=== PATIENT | female | born 1965 | race Caucasian/White ===

== ENCOUNTER 2020-07-30 13:00 | Emergency (ER) | payer OTHER, SELFPAY ==
[2020-07-30 13:07] VITALS: BP 128/69; PULSE 85; RESP 16; TEMP 36.8; O2SAT 97; BMI 31.4
--- NOTE | 2020-07-30 13:28 | CT_ITS ---
EXAMINATION: CT HEAD W/O IV CONTRAST CT CERVICAL SPINE W/O IV CONTRAST CLINICAL INFORMATION: Fall. Hit head. Questionable loss of consciousness. COMPARISON: None TECHNIQUE: Head - Contiguous axial imaging of the head was performed from the skull base to the vertex without the administration of intravenous contrast, and axial images are reconstructed at 2 mm and 5 mm slice thickness. Cervical spine - A volumetric, helical CT acquisition of the cervical spine was obtained without contrast; in addition to the standard set of axial images, multiplanar reformatted images were provided in the coronal and sagittal imaging planes. This CT examination was performed using dose optimization techniques as appropriate, variously including the following: *Automated exposure control *Adjustment of mA and/or kV according to patient size (this includes techniques or standardized protocols for targeted exams where dose is matched to indication/reason for exam; i.e. extremities or head) *Use of iterative reconstruction technique DLP: 1151 mGy-cm (total) FINDINGS: HEAD: No intracranial hemorrhage, extra-axial fluid collection, focal mass effect or midline shift. The henderson-white matter differentiation is maintained. No acute major vascular territory infarction. The ventricles have normal size and configuration. The brainstem and cerebellum are unremarkable. The cerebellar tonsils are normal position. The calvarium is intact. The paranasal sinuses, mastoid air cells and middle ear cavities are well aerated. The orbits, globes and temporomandibular joints are unremarkable. CERVICAL SPINE: The cervical spine has normal curvature. The craniocervical junction is normal. The occipital condyles, dens and atlantodental articulation are intact. The vertebral body heights and alignment are maintained. No fractures in the anterior or posterior elements. No prevertebral soft tissue swelling. At C5-C6, there is mild disc space narrowing, vertebral traction osteophyte formation and uncovertebral joint hypertrophy. No significant narrowing of the central spinal canal or neural foramina. No spinal hematoma. Thyroid gland is mildly atrophied. The visualized lung apices have mosaic attenuation, suggestive of air trapping phenomenon with atelectasis. CT/CT cervical spine wo con IMPRESSION: * No acute intracranial pathology. * No fracture or malalignment in the cervical spine. * Mild degenerative disc disease of C5-C6.
--- NOTE | 2020-07-30 13:28 | XR_ITS ---
EXAMINATION: X-RAY FEMUR, LEFT X-RAY PELVIS CLINICAL INFORMATION: Left-sided pain and swelling COMPARISON: Radiographs of the right hip 09/10/2017 TECHNIQUE: AP and lateral views of the left femur. Single frontal view of the pelvis. FINDINGS: Left femur: There is normal alignment without acute fracture or dislocation. There is narrowing of the left hip joint with hypertrophic changes of the acetabulum and femoral head. There are vascular calcifications. Pelvis: There is normal alignment without acute fracture or dislocation. There is also narrowing of the right hip joint with associated hypertrophic changes of the acetabulum and femoral head. There are vascular calcifications within the pelvis. Unchanged calcification in the right pelvis, previously described as a dermoid. XR/XR pelvis 1-2V IMPRESSION: Degenerative changes of the bilateral hips. No acute fracture or dislocation.
--- NOTE | 2020-07-30 13:28 | XR_ITS ---
EXAMINATION: X-RAY FEMUR, LEFT X-RAY PELVIS CLINICAL INFORMATION: Left-sided pain and swelling COMPARISON: Radiographs of the right hip 09/10/2017 TECHNIQUE: AP and lateral views of the left femur. Single frontal view of the pelvis. FINDINGS: Left femur: There is normal alignment without acute fracture or dislocation. There is narrowing of the left hip joint with hypertrophic changes of the acetabulum and femoral head. There are vascular calcifications. Pelvis: There is normal alignment without acute fracture or dislocation. There is also narrowing of the right hip joint with associated hypertrophic changes of the acetabulum and femoral head. There are vascular calcifications within the pelvis. Unchanged calcification in the right pelvis, previously described as a dermoid. XR/XR femur LT 2V IMPRESSION: Degenerative changes of the bilateral hips. No acute fracture or dislocation.
[2020-07-30] MEDS: Lidocaine HCl 1 % MPF 5 ML VIAL SUBCUT (13:48)
--- NOTE | 2020-07-30 13:53 | ED.FALL ---
HPI - Fall General Chief Complaint: Fall Stated Complaint: fall Time Seen by Provider: 07/30/20 13:15 Source: EMS Mode of arrival: EMS History of Present Illness HPI Narrative: 54-year-old female with a past medical history of diabetes presenting to ED complaining headache, left thigh pain, and laceration to left ear s/p mechanical fall around 12:00 p.m. today. Reports slipped and fell in bathroom hitting head on toilet, unknown LOC. Denies taking anticoagulation. Has been ambulatory since the incident. Denies symptoms prior to fall. Denies nausea/vomiting, vision changes, neck/back pain, incontinence/retention, abdominal pain Reports does not take vaccinations/never took tetanus, is refusing at present MD complaint: fall Onset (ago): hour(s) Related Data Allergies Allergy/AdvReac Type Severity Reaction Status Date / Time No Known Allergies Allergy Unverified 05/05/20 15:54 [No Known Allergies*] none Allergy Unknown Uncoded 09/28/19 00:00 Review of Systems Review of Systems: Constitutional: No Weight loss, No Fever, No Chills, No Night Sweats, No Fatigue, No Malaise ENT/Mouth: No Hearing loss, +L Ear Pain Eyes: No Eye Pain, No Vision Changes Cardiovascular: No Chest Pain, No SOB, No Edema, No Palpitations Respiratory: No Cough Gastrointestinal: No Nausea, No Vomiting, No Abdominal pain Genitourinary: No Urinary Frequency, No Hematuria Musculoskeletal: +L thigh pain, No Myalgias, No Joint Swelling Skin: +laceration, No rash Neuro: No Weakness, No Numbness, No Paresthesias, Unknown Loss of Consciousness, No Dizziness, + Headache Yes all other systems are reviewed and are negative Neurologic: Denies Sensory deficit (Neuro) [facility], [facility] Past Medical History Attestation statement: The following information was validated with the patient. Medical History (Updated 07/30/20 @ 16:28 by MARIZOL Paez) Diabetes Social History Social History Alcohol intake: never Smoking Status: Never smoker Use of substances other than those prescribed or required for medical reasons: No Advance Directives: No Advance Directives Information Provided: No Physical Exam Vital Signs: Vital Signs: Last Vital Signs Temp 98.3 F 07/30/20 13:07 Pulse 85 07/30/20 13:07 Resp 16 07/30/20 13:07 BP 128/69 07/30/20 13:07 Pulse Ox 97 07/30/20 13:07 Body Mass Index 31.4 Const: General: cooperative and healthy appearing Orientation/consciousness: patient oriented x3 Limitations: no limitations HENMT: Other: Left ear pinna with 1.5 cm laceration and visible cartilage. 1 cm flap laceration noted to posterior left pinna Head: Yes normal to inspection General nose exam: Normal external nose present Face and sinus: Yes normal facial exam Mouth: Normal oral and palatal mucosa present Eyes: General: appearance normal, both eyes and all related structures Pupils: Equal, round and reactive pupils present EOM: EOMs intact bilaterally Neck: Other: C-collar in place. No midline cervical spinous tenderness or appreciable step-offs Neck: Yes normal visual inspection and Yes no meningeal signs Resp: Effort & Inspection: normal respiratory effort Cardio: Rate: regular rate Heart sounds: S1 normal heart sound present Peripheral pulses: dorsalis pedis present GI: Inspection: Yes normal to inspection Palpation (GI): Soft to palpation, nontender, no guarding and not rigid Skin: Rashes: no rashes Wounds: no wounds Neuro: Other: No saddle anesthesia General: patient oriented x3, tone normal, moves all extremities, no meningeal signs, no focal motor deficits and CN's II-XI intact bilaterally Cranial nerves: Yes Equal, round and reactive pupils present Gait exam (Neuro): Normal gait present Motor exam (neuro): 5/5 motor strength present throughout Sensory Exam: No Sensory deficit (Neuro) Coordination: [id number] test normal Extrem: Other: Left proximal lateral thigh with visible lump/inflammation and tenderness to palpation. No crepitus/cellulitis. FROM hip intact General: Yes normal to inspection Course Course Course Narrative: -Head CT and cervical spine CT w/o acute findings -Patient refusing sutures, but agreeable to dermabond -femur/pelvic/hip x-rays with degenerative changes, no acute fracture or dislocation Worrisome signs and symptoms and strict return precautions discussed with patient. She verbalized understanding feel safe for discharge home Procedures Laceration Laceration 1: Site: face (Left ear) Side (If applicable): left Size (cm): 1.5 Description: flap and irregular Depth: simple, single layer (Dermabond) Laceration 2: Site: face (Left ear) Side (If applicable): left Size (cm): 1.0 Description: flap Depth: simple, single layer (Dermabond) MDM - Fall MDM Narrative Medical decision making narrative: 54-year-old female with a past medical history of diabetes presenting to ED complaining headache, left thigh pain, and laceration to left ear s/p mechanical fall around 12:00 p.m. today. On exam VSS, NAD/well-appearing, C-collar in place, no midline spinous tenderness, no focal neuro deficits. Patient refusing tetanus. Rule out ICH/fracture. Plan: Head/C-spine CT, left femur/hip x-ray, repair lack Discharge Plan Discharge Clinical Impression: Laceration, Pain in left thigh Fall Qualifiers: Encounter type: initial encounter Qualified Code(s): W19.XXXA - Unspecified fall, initial encounter Patient Disposition: Home, Self-Care Instructions: Skin Adhesive Care (ED) Additional Instructions: Your imaging studies were unremarkable today in ED Your ear was fixed with skin glue, do not pick at it, avoid excessive water to area, it will follow up on its own Area begins to look red, infected, there is drainage, or you fever return to the ED You should follow-up with her primary care doctor Take Tylenol/Motrin at home for pain/headache. If you develop constant worsening headache, nausea/vomiting, vision changes, or weakness return to the ED Referrals: Physician,Unknown [Primary Care Provider] - 2 days (Your doctor)
== END 2020-07-30 16:50 | disposition home or self-care (01) ==
PROVIDERS: Emergency Provider Emergency Medicine
DX: S01.312A Laceration without foreign body of left ear, initial encounter (principal); W01.198A Fall on same level from slipping, tripping and stumbling with subsequent striking against other object, initial encounter; M79.652 Pain in left thigh; E11.9 Type 2 diabetes mellitus without complications; Y93.9 Activity, unspecified; Y92.012 Bathroom of single-family (private) house as the place of occurrence of the external cause
CPT/HCPCS: 12011; 70450; 72125; 72170; 73552; 99284

== ENCOUNTER 2020-09-07 11:21 | Outpatient (REF) | payer OTHER, SELFPAY ==
[2020-09-07 13:36] LABS: MANUAL DIFF FLAG NO
[2020-09-07 13:47] LABS: Basophils Percent Auto 0.5 % (0-2); Hematocrit 40.5 % (37-47); Hemoglobin 13.8 g/dl (12.0-16.0); Imm Gran Abs Auto 0.01 X10*3/uL (0.00-0.03); Imm Gran Pct Auto 0.2 % (0.0-0.4); Lymphocytes Absolute Auto 1.3 X10*3/uL (1.2-4.9); Lymphocytes Percent Auto 23.5 % (20-40); Mean Corpuscular HGB Conc 34.1 g/dl (31.0-35.0); Mean Corpuscular Hemoglobin 32.6 pg (27.0-33.0); Mean Corpuscular Volume 95.7 fL (80-98); Monocytes Absolute Auto 0.5 X10*3/uL (0.1-1.2); Neutrophils Absolute Auto 3.8 X10*3/uL (2.0-8.3); Neutrophils Percent Auto 67.8 % (45-73); Platelet Count 116 X10*3/uL (160-400); Red Blood Count 4.23 X10*6/uL (4.20-5.50); Red Cell Distribution Width 13.3 % (11.0-16.0); White Blood Count 5.6 X10*3/uL (4.8-10.8)
[2020-09-07 13:56] LABS: Estimated Average Glucose 214 mg/dL; Hemoglobin A1c % 9.1 %
[2020-09-07 14:10] LABS: Alanine Aminotransferase 36 U/L (0-31); Alkaline Phosphatase 171 U/L (39-117); Anion Gap 10 (12-20); Aspartate Amino Transferase 46 U/L (5-31); Bilirubin Direct 0.4 mg/dL (0.0-0.5); Bilirubin Total 0.8 mg/dL (0.0-1.0); Blood Urea Nitrogen 14 mg/dL (9-16); Calcium 8.8 mg/dL (8.4-10.2); Carbon Dioxide 27 mmol/L (22-29); Chloride 103 mmol/L (96-108); Cholesterol 138 mg/dL; Estimated Glomerular Filt Rate 58; Glucose Random 287 mg/dL (60-115); HDL Cholesterol 42 mg/dL; LDL Cholesterol Calculated 71 mg/dl; Potassium 4.2 mmol/l (3.3-5.1); Sodium 136 mmol/L (135-145); Total Protein 6.8 g/dL (6.5-8.0); Triglycerides 125 mg/dL
== END 2020-09-07 11:22 | disposition home or self-care (01) ==
LOC: HO.10HDL 11:21
PROVIDERS: Visit Provider Internal Medicine
DX: E11.9 Type 2 diabetes mellitus without complications (principal)
CPT/HCPCS: 36415; 80048; 80061; 80076; 83036; 85025

== ENCOUNTER 2021-04-05 15:58 | Emergency (ER) | payer OTHER, SELFPAY ==
[2021-04-05 16:07] VITALS: BP 130/85; PULSE 115; O2SAT 98
--- NOTE | 2021-04-05 17:37 | ED.ABDPAIN ---
HPI - Abdominal Pain General Chief Complaint: Nausea/Vomiting/Diarrhea <MARIZOL Paez - Last Filed: 04/05/21 23:35> Stated Complaint: N/V/D,ABD PAIN X3DAYS <MARIZOL Paez - Last Filed: 04/05/21 23:35> Time Seen by Provider: 04/05/21 17:37 <MARIZOL Paez - Last Filed: 04/05/21 23:35> Source: patient <Latrice Lopez MD - Last Filed: 04/06/21 01:31> Mode of arrival: ambulatory <Latrice Lopez MD - Last Filed: 04/06/21 01:31> Limitations: no limitations <Latrice Lopez MD - Last Filed: 04/06/21 01:31> History of Present Illness HPI narrative: Patient comes emergency room complaining of nausea vomiting and diarrhea for 3 days. Complaining of abdominal cramping. Patient denies fever chills. Patient denies UTI or URI symptoms <Latrice Lopez MD - Last Filed: 04/06/21 01:31> Related Data Home Medications: Home Medications Medication Instructions Recorded Confirmed ferrous sulfate 325 mg (65 mg 325 mg PO DAILY 09/05/20 09/19/20 iron) tablet furosemide 20 mg tablet 20 mg PO DAILY 09/05/20 09/19/20 spironolactone 25 mg tablet 25 mg PO DAILY PRN tab 09/05/20 09/19/20 insulin glargine 100 unit/mL (3 100 unit SUBCUT ml 09/13/20 09/13/20 mL) subcutaneous pen Previous Rx's Medication Instructions Recorded dulaglutide 1.5 mg/0.5 mL 1.5 mg SUBCUT QWEEK #2 ml 09/18/20 subcutaneous pen injector (Trulicity) insulin aspart U-100 100 unit/mL 30 unit SUBCUT TID #15 ml 09/18/20 (3 mL) subcutaneous pen (Novolog Flexpen U-100 Insulin aspart) blood sugar diagnostic (FreeStyle 1 strip MISCELLANEOUS TID #300 01/31/21 Lite Strips) strip carvedilol 3.125 mg tablet 3.125 mg PO BID #180 tab 03/09/21 hyoscyamine sulfate 0.125 mg tablet 0.125 mg PO QID PRN #10 tab 04/06/21 ondansetron HCl 4 mg tablet 4 mg PO Q6H PRN #10 tab 04/06/21 (Zofran) <MARIZOL Paez - Last Filed: 04/05/21 23:35> Allergies/Adverse Reactions: Allergies Allergy/AdvReac Type Severity Reaction Status Date / Time No Known Allergies Allergy Verified 09/19/20 09:26 [No Known Allergies*] <MARIZOL Paez - Last Filed: 04/05/21 23:35> Review of Systems Review of Systems Constitutional : No Weight loss, No Fever, No Chills, No Night Sweats, No Fatigue, No Malaise ENT/Mouth : No Hearing loss, No Ear Pain, No Nasal Congestion, No Sinus Pain, No Hoarseness, No sore throat, No Rhinorrhea, No Swallowing Difficulty Eyes: No Eye Pain, No Swelling, No Redness, No Foreign Body, No Discharge, No Vision Changes Cardiovascular : No Chest Pain, No SOB, No Dyspnea on Exertion, No Orthopnea, No Edema, No Palpitations Respiratory : No Cough, No Sputum, No Wheezing, No Smoke Exposure, No Dyspnea Gastrointestinal : No Nausea, No Vomiting, No Diarrhea, No Constipation, No abdominal Pain, No Hematochezia, No Melena Genitourinary : no irregular bleeding, No Dysuria, No Urinary Frequency, No Hematuria, No Urinary Incontinence, No Urgency, No Flank Pain, No Urinary Flow Changes, No Hesitancy Musculoskeletal : No joint pain, No Myalgias, No Joint Swelling Skin : No Skin Lesions, No rash Neuro : No Weakness, No Numbness, No Paresthesias, No Loss of Consciousness, No Dizziness, No Headache Psych : No Anxiety/Panic, No Depression, No SI/HI/AH/VH, No Social Issues, Heme/Lymph: No Bruising, No Bleeding,No Lymphadenopathy Endocrine : No Polyuria, No Polydipsia, No Temperature Intolerance <Latrice Lopez MD - Last Filed: 04/06/21 01:31> Physical Exam Vital Signs: Vital Signs: Last Vital Signs Temp 98.8 F 04/06/21 01:14 Pulse 96 04/06/21 01:14 Resp 16 04/06/21 01:14 BP 105/62 04/06/21 01:14 Pulse Ox 94 04/06/21 01:14 Body Mass Index 31.1 <MARIZOL Paez - Last Filed: 04/05/21 23:35> Vital Signs: Last Vital Signs Temp 98.8 F 04/06/21 01:14 Pulse 96 04/06/21 01:14 Resp 16 04/06/21 01:14 BP 105/62 04/06/21 01:14 Pulse Ox 94 04/06/21 01:14 Body Mass Index 31.1 <Latrice Lopez MD - Last Filed: 04/06/21 01:31> Course Course Course Narrative: This is RME in [facility], full medical eval will be performed by ED provider: 55yo F PMHx DM, presenting to ED c/o N/V/D and upper abdominal pain x3 days. Reports fever 100F 2 days ago. Denies bloody BMs, urinary sx, travel, covid exposure, chills Labs, UA, Lactic ordered in Triage <MARIZOL Paez - Last Filed: 04/05/21 23:35> This is RME in [facility], full medical eval will be performed by ED provider: 55yo F PMHx DM, presenting to ED c/o N/V/D and upper abdominal pain x3 days. Reports fever 100F 2 days ago. Denies bloody BMs, urinary sx, travel, covid exposure, chills Labs, UA, Lactic ordered in Triage Patient states that now she feels well, no abdominal pain, no vomiting or diarrhea. Patient's glucose is now 269.. Patient's lactic acid elevation is chronic, patient also has elevated LFTs secondary to cirrhosis. Patient takes 100 units of Lantus daily, and uses an insulin sliding scale. I discussed with the patient to be compliant with her scale and to follow-up with her primary care physician <Latrice Lopez MD - Last Filed: 04/06/21 01:31> MDM - Abdominal Pain Lab Data Result diagrams: : 04/05/21 20:48 04/05/21 20:48 <MARIZOL Paez - Last Filed: 04/05/21 23:35> Labs: Lab Results 04/05/21 04/05/21 04/05/21 Range/Units 20:48 20:48 20:48 WBC 5.7 (4.8-10.8) X10*3/uL RBC 4.71 (4.20-5.50) X10*6/uL Hgb 15.8 (12.0-16.0) g/dl Hct 45.9 (37-47) % MCV 97.5 (80-98) fL MCH 33.5 H (27.0-33.0) pg MCHC 34.4 (31.0-35.0) g/dl RDW 14.5 (11.0-16.0) % Plt Count 96 L (160-400) X10*3/uL MPV 10.7 (9.4-12.3) fL Immature Gran % (Auto) 0.4 (0.0-0.4) % Neut % (Auto) 67.4 (45-73) % Lymph % (Auto) 19.4 L (20-40) % Barron % (Auto) 12.4 H (2-11) % Eos % (Auto) 0.0 (0-4) % Baso % (Auto) 0.4 (0-2) % Lymph # (Auto) 1.1 L (1.2-4.9) X10*3/uL Barron # (Auto) 0.7 (0.1-1.2) X10*3/uL Eos # (Auto) 0.0 (0.0-0.4) X10*3/uL Baso # (Auto) 0.0 (0.0-0.2) X10*3/uL Abs Immat Gran (auto) 0.02 (0.00-0.03) X10*3/uL Absolute Neuts (auto) 3.9 (2.0-8.3) X10*3/uL Absolute Nucleated RBC 0.000 (0.0-0.012) X10*3/uL Nucleated RBC % (auto) 0.0 (0.0-0.2) /100WBC Smear Tech's Comments VERIFIED Sodium 135 (135-145) mmol/L Potassium 3.6 (3.3-5.1) mmol/L Chloride 101 (96-108) mmol/L Carbon Dioxide 24 (22-29) mmol/L Anion Gap 14 (12-20) BUN 16 (9-16) mg/dL Creatinine 1.10 (0.5-1.4) mg/dL Estim Creat Clear Calc 60.6 Estimated GFR 51 POC Glucose (60-115) mg/dL Random Glucose 473 H* (60-115) mg/dL Lactic Acid 3.6 H* (0.5-2.0) mmol/L Lactic Acid Fup @ 2Hr (0.5-2.0) mmol/L Calcium 7.8 L D (8.4-10.2) mg/dL Magnesium 1.6 (1.6-2.6) mg/dL Total Bilirubin 2.3 H (0.0-1.0) mg/dL Direct Bilirubin 1.1 H (0.0-0.5) mg/dL AST 50 H (5-31) U/L ALT 34 H (0-31) U/L Alkaline Phosphatase 96 D (39-117) U/L Total Protein 6.3 L (6.5-8.0) g/dL Albumin 2.7 L (3.5-5.0) g/dL Lipase 46 (8-78) U/L Acetone, Qual Negative (Negative) 04/06/21 04/06/21 Range/Units 00:10 00:22 WBC (4.8-10.8) X10*3/uL RBC (4.20-5.50) X10*6/uL Hgb (12.0-16.0) g/dl Hct (37-47) % MCV (80-98) fL MCH (27.0-33.0) pg MCHC (31.0-35.0) g/dl RDW (11.0-16.0) % Plt Count (160-400) X10*3/uL MPV (9.4-12.3) fL Immature Gran % (Auto) (0.0-0.4) % Neut % (Auto) (45-73) % Lymph % (Auto) (20-40) % Barron % (Auto) (2-11) % Eos % (Auto) (0-4) % Baso % (Auto) (0-2) % Lymph # (Auto) (1.2-4.9) X10*3/uL Barron # (Auto) (0.1-1.2) X10*3/uL Eos # (Auto) (0.0-0.4) X10*3/uL Baso # (Auto) (0.0-0.2) X10*3/uL Abs Immat Gran (auto) (0.00-0.03) X10*3/uL Absolute Neuts (auto) (2.0-8.3) X10*3/uL Absolute Nucleated RBC (0.0-0.012) X10*3/uL Nucleated RBC % (auto) (0.0-0.2) /100WBC Smear Tech's Comments Sodium (135-145) mmol/L Potassium (3.3-5.1) mmol/L Chloride (96-108) mmol/L Carbon Dioxide (22-29) mmol/L Anion Gap (12-20) BUN (9-16) mg/dL Creatinine (0.5-1.4) mg/dL Estim Creat Clear Calc Estimated GFR POC Glucose 316 H (60-115) mg/dL Random Glucose (60-115) mg/dL Lactic Acid (0.5-2.0) mmol/L Lactic Acid Fup @ 2Hr 2.1 H* (0.5-2.0) mmol/L Calcium (8.4-10.2) mg/dL Magnesium (1.6-2.6) mg/dL Total Bilirubin (0.0-1.0) mg/dL Direct Bilirubin (0.0-0.5) mg/dL AST (5-31) U/L ALT (0-31) U/L Alkaline Phosphatase (39-117) U/L Total Protein (6.5-8.0) g/dL Albumin (3.5-5.0) g/dL Lipase (8-78) U/L Acetone, Qual (Negative) <MARIZOL Paez - Last Filed: 04/05/21 23:35> Lab Results 04/05/21 04/05/21 04/05/21 Range/Units 20:48 20:48 20:48 WBC 5.7 (4.8-10.8) X10*3/uL RBC 4.71 (4.20-5.50) X10*6/uL Hgb 15.8 (12.0-16.0) g/dl Hct 45.9 (37-47) % MCV 97.5 (80-98) fL MCH 33.5 H (27.0-33.0) pg MCHC 34.4 (31.0-35.0) g/dl RDW 14.5 (11.0-16.0) % Plt Count 96 L (160-400) X10*3/uL MPV 10.7 (9.4-12.3) fL Immature Gran % (Auto) 0.4 (0.0-0.4) % Neut % (Auto) 67.4 (45-73) % Lymph % (Auto) 19.4 L (20-40) % Barron % (Auto) 12.4 H (2-11) % Eos % (Auto) 0.0 (0-4) % Baso % (Auto) 0.4 (0-2) % Lymph # (Auto) 1.1 L (1.2-4.9) X10*3/uL Barron # (Auto) 0.7 (0.1-1.2) X10*3/uL Eos # (Auto) 0.0 (0.0-0.4) X10*3/uL Baso # (Auto) 0.0 (0.0-0.2) X10*3/uL Abs Immat Gran (auto) 0.02 (0.00-0.03) X10*3/uL Absolute Neuts (auto) 3.9 (2.0-8.3) X10*3/uL Absolute Nucleated RBC 0.000 (0.0-0.012) X10*3/uL Nucleated RBC % (auto) 0.0 (0.0-0.2) /100WBC Smear Tech's Comments VERIFIED Sodium 135 (135-145) mmol/L Potassium 3.6 (3.3-5.1) mmol/L Chloride 101 (96-108) mmol/L Carbon Dioxide 24 (22-29) mmol/L Anion Gap 14 (12-20) BUN 16 (9-16) mg/dL Creatinine 1.10 (0.5-1.4) mg/dL Estim Creat Clear Calc 60.6 Estimated GFR 51 POC Glucose (60-115) mg/dL Random Glucose 473 H* (60-115) mg/dL Lactic Acid 3.6 H* (0.5-2.0) mmol/L Lactic Acid Fup @ 2Hr (0.5-2.0) mmol/L Calcium 7.8 L D (8.4-10.2) mg/dL Magnesium 1.6 (1.6-2.6) mg/dL Total Bilirubin 2.3 H (0.0-1.0) mg/dL Direct Bilirubin 1.1 H (0.0-0.5) mg/dL AST 50 H (5-31) U/L ALT 34 H (0-31) U/L Alkaline Phosphatase 96 D (39-117) U/L Total Protein 6.3 L (6.5-8.0) g/dL Albumin 2.7 L (3.5-5.0) g/dL Lipase 46 (8-78) U/L Acetone, Qual Negative (Negative) 04/06/21 04/06/21 Range/Units 00:10 00:22 WBC (4.8-10.8) X10*3/uL RBC (4.20-5.50) X10*6/uL Hgb (12.0-16.0) g/dl Hct (37-47) % MCV (80-98) fL MCH (27.0-33.0) pg MCHC (31.0-35.0) g/dl RDW (11.0-16.0) % Plt Count (160-400) X10*3/uL MPV (9.4-12.3) fL Immature Gran % (Auto) (0.0-0.4) % Neut % (Auto) (45-73) % Lymph % (Auto) (20-40) % Barron % (Auto) (2-11) % Eos % (Auto) (0-4) % Baso % (Auto) (0-2) % Lymph # (Auto) (1.2-4.9) X10*3/uL Barron # (Auto) (0.1-1.2) X10*3/uL Eos # (Auto) (0.0-0.4) X10*3/uL Baso # (Auto) (0.0-0.2) X10*3/uL Abs Immat Gran (auto) (0.00-0.03) X10*3/uL Absolute Neuts (auto) (2.0-8.3) X10*3/uL Absolute Nucleated RBC (0.0-0.012) X10*3/uL Nucleated RBC % (auto) (0.0-0.2) /100WBC Smear Tech's Comments Sodium (135-145) mmol/L Potassium (3.3-5.1) mmol/L Chloride (96-108) mmol/L Carbon Dioxide (22-29) mmol/L Anion Gap (12-20) BUN (9-16) mg/dL Creatinine (0.5-1.4) mg/dL Estim Creat Clear Calc Estimated GFR POC Glucose 316 H (60-115) mg/dL Random Glucose (60-115) mg/dL Lactic Acid (0.5-2.0) mmol/L Lactic Acid Fup @ 2Hr 2.1 H* (0.5-2.0) mmol/L Calcium (8.4-10.2) mg/dL Magnesium (1.6-2.6) mg/dL Total Bilirubin (0.0-1.0) mg/dL Direct Bilirubin (0.0-0.5) mg/dL AST (5-31) U/L ALT (0-31) U/L Alkaline Phosphatase (39-117) U/L Total Protein (6.5-8.0) g/dL Albumin (3.5-5.0) g/dL Lipase (8-78) U/L Acetone, Qual (Negative) <Latrice Lopez MD - Last Filed: 04/06/21 01:31> Discharge Plan Discharge Clinical Impression: Abdominal pain, Acute hyperglycemia <MARIZOL Paez - Last Filed: 04/05/21 23:35> Patient Disposition: Home, Self-Care <MARIZOL Paez - Last Filed: 04/05/21 23:35> Instructions: Abdominal Pain (ED), Diabetes and Exercise (ED) <MARIZOL Paez - Last Filed: 04/05/21 23:35> Additional Instructions: Please follow-up with your primary care physician tomorrow. If you have any worsening or new symptoms, please return to the emergency room or call 911 <MARIZOL Paez - Last Filed: 04/05/21 23:35> Prescriptions: New hyoscyamine sulfate 0.125 mg tablet 0.125 mg PO QID PRN (Reason: dyspepsia) Qty: 10 RF: 0 ondansetron HCl [Zofran] 4 mg tablet 4 mg PO Q6H PRN (Reason: nausea and vomiting) Qty: 10 RF: 0 No Action Trulicity 1.5 mg/0.5 mL pen injector 1.5 mg subcut QWEEK Qty: 2 RF: 1 insulin aspart U-100 [Novolog Flexpen U-100 Insulin] 100 unit/mL (3 mL) insulin pen 30 unit subcut TID Qty: 15 RF: 1 blood sugar diagnostic [FreeStyle Lite Strips] Strip 1 strip miscellaneous TID Qty: 300 RF: 12 carvedilol 3.125 mg tablet 3.125 mg PO BID Qty: 180 RF: 1 spironolactone 25 mg tablet 25 mg PO DAILY PRNRF: 0 ferrous sulfate 325 mg (65 mg iron) tablet 325 mg PO DAILY RF: 0 furosemide 20 mg tablet 20 mg PO DAILY RF: 0 insulin glargine 100 unit/mL (3 mL) insulin pen 100 unit subcut RF: 0 <MARIZOL Paez - Last Filed: 04/05/21 23:35> [facility] Past Medical History Medical History: Medical History (Updated 04/06/21 @ 01:29 by Latrice Lopez MD) Diabetes (~01/31/21) <MARIZOL Paez - Last Filed: 04/05/21 23:35> Family History Family History: Family History Mother No problems noted. Father No problems noted. <MARIZOL Paez - Last Filed: 04/05/21 23:35> Social History Social History: Social History Alcohol intake: never Advance Directives: No Advance Directives Information Provided: No Patient : No <MARIZOL Paez - Last Filed: 04/05/21 23:35>
[2021-04-05 17:38] VITALS: BP 119/71; PULSE 105; RESP 20; TEMP 36.2; O2SAT 96; BMI 31.1
[2021-04-05 20:59] LABS: MANUAL DIFF FLAG SCAN; PLT CLUMP 1; Red Cell Distribution Width 14.5 % (11.0-16.0); SCAN SMEAR FLAG 1
[2021-04-05 21:01] LABS: Basophils Percent Auto 0.4 % (0-2); Hematocrit 45.9 % (37-47); Hemoglobin 15.8 g/dl (12.0-16.0); Imm Gran Abs Auto 0.02 X10*3/uL (0.00-0.03); Imm Gran Pct Auto 0.4 % (0.0-0.4); Lymphocytes Absolute Auto 1.1 X10*3/uL (1.2-4.9); Lymphocytes Percent Auto 19.4 % (20-40); Mean Corpuscular HGB Conc 34.4 g/dl (31.0-35.0); Mean Corpuscular Hemoglobin 33.5 pg (27.0-33.0); Mean Corpuscular Volume 97.5 fL (80-98); Mean Platelet Volume 10.7 fL (9.4-12.3); Monocytes Absolute Auto 0.7 X10*3/uL (0.1-1.2); Monocytes Percent Auto 12.4 % (2-11); Neutrophils Absolute Auto 3.9 X10*3/uL (2.0-8.3); Neutrophils Percent Auto 67.4 % (45-73); Red Blood Count 4.71 X10*6/uL (4.20-5.50); White Blood Count 5.7 X10*3/uL (4.8-10.8)
[2021-04-05] MEDS: 0.9 % Sodium Chloride 1,000 ML 999 ML IVCONT ×2 (21:08→22:41)
[2021-04-05 21:09] VITALS: BP 122/80; PULSE 100; RESP 20; O2SAT 97
[2021-04-05] MEDS: PHENobarb/Hyoscy/Atropine/Scop 10 ML ELIXIR PO (21:13)
[2021-04-05 21:18] LABS: Platelet Count 96 X10*3/uL (160-400); SLIDE REVIEW VERIFIED
[2021-04-05] MEDS: ondansetron HCL 4 MG/2 ML VIAL IVPUSH (21:25)
[2021-04-05 21:31] LABS: Lactic Acid 3.6 mmol/L (0.5-2.0)
[2021-04-05 21:48] LABS: Alanine Aminotransferase 34 U/L (0-31); Albumin Level 2.7 g/dL (3.5-5.0); Alkaline Phosphatase 96 U/L (39-117); Anion Gap 14 (12-20); Aspartate Amino Transferase 50 U/L (5-31); Bilirubin Direct 1.1 mg/dL (0.0-0.5); Bilirubin Total 2.3 mg/dL (0.0-1.0); Blood Urea Nitrogen 16 mg/dL (9-16); Calcium 7.8 mg/dL (8.4-10.2); Carbon Dioxide 24 mmol/L (22-29); Chloride 101 mmol/L (96-108); Creatinine Clr Calc Pharmacy 60.6; Estimated Glomerular Filt Rate 51; Glucose Random 473 mg/dL (60-115); Lipase 46 U/L (8-78); Magnesium 1.6 mg/dL (1.6-2.6); Potassium 3.6 mmol/L (3.3-5.1); Sodium 135 mmol/L (135-145); Total Protein 6.3 g/dL (6.5-8.0)
[2021-04-05 22:12] VITALS: BP 113/70; PULSE 97; RESP 18; TEMP 36.9; O2SAT 95
[2021-04-05 22:55] LABS: Reflex Lactate? Lactic Acid Added
[2021-04-05 23:51] LABS: Acetone, serum QL Negative (Negative)
[2021-04-06 00:14] LABS: Glucose, Whole Blood 316 mg/dL (60-115)
[2021-04-06] MEDS: Insulin Regular, Human 100 UNIT/ML 3 ML VIAL 10 UNIT IVPUSH (00:29)
[2021-04-06 00:56] LABS: ~Lactic Acid-LAB USE ONLY 2.1 mmol/L (0.5-2.0)
[2021-04-06 01:14] VITALS: BP 105/62; PULSE 96; RESP 16; TEMP 37.1; O2SAT 94
[2021-04-06 01:27] LABS: Glucose, Whole Blood 269 mg/dL (60-115)
[2021-04-06 02:26] LABS: Reflex Lactate? 2 Y
== END 2021-04-06 01:43 | disposition home or self-care (01) ==
PROVIDERS: Physician Assistant; Emergency Provider Emergency Medicine
DX: R10.9 Unspecified abdominal pain (principal); E11.65 Type 2 diabetes mellitus with hyperglycemia; R50.9 Fever, unspecified; R11.2 Nausea with vomiting, unspecified; Z79.899 Other long term (current) drug therapy; Z79.4 Long term (current) use of insulin
CPT/HCPCS: 36415; 80048; 80076; 82009; 82947; 83605; 83690; 83735; 85025; 96361; 96374; 96375; 99284; J2405

== ENCOUNTER 2021-04-17 17:43 | Emergency (ER) | payer OTHER, SELFPAY ==
[2021-04-17 17:48] VITALS: BP 112/64; PULSE 87; RESP 18; TEMP 36.4; O2SAT 98; BMI 33.3
--- NOTE | 2021-04-17 18:45 | ED.ABDPAIN ---
HPI - Abdominal Pain General Chief Complaint: Abdominal Pain Stated Complaint: Swelling of abdominal/pain Time Seen by Provider: 04/17/21 18:35 Source: patient and family Mode of arrival: ambulatory Limitations: no limitations History of Present Illness HPI narrative: 55-year-old cirrhotic female noncompliant with her paracentesis taps presents emergency department complaining of distention and shortness of breath. Patient denies fevers chills cough nausea vomiting or diarrhea. Related Data Home Medications Medication Instructions Recorded Confirmed ferrous sulfate 325 mg (65 mg 325 mg PO DAILY 09/05/20 09/19/20 iron) tablet furosemide 20 mg tablet 20 mg PO DAILY 09/05/20 09/19/20 spironolactone 25 mg tablet 25 mg PO DAILY PRN tab 09/05/20 09/19/20 insulin glargine 100 unit/mL (3 100 unit SUBCUT ml 09/13/20 09/13/20 mL) subcutaneous pen Previous Rx's Medication Instructions Recorded dulaglutide 1.5 mg/0.5 mL 1.5 mg SUBCUT QWEEK #2 ml 09/18/20 subcutaneous pen injector (Trulicity) insulin aspart U-100 100 unit/mL 30 unit SUBCUT TID #15 ml 09/18/20 (3 mL) subcutaneous pen (Novolog Flexpen U-100 Insulin aspart) blood sugar diagnostic (FreeStyle 1 strip MISCELLANEOUS TID #300 01/31/21 Lite Strips) strip carvedilol 3.125 mg tablet 3.125 mg PO BID #180 tab 03/09/21 hyoscyamine sulfate 0.125 mg tablet 0.125 mg PO QID PRN #10 tab 04/06/21 ondansetron HCl 4 mg tablet 4 mg PO Q6H PRN #10 tab 04/06/21 (Zofran) Allergies Allergy/AdvReac Type Severity Reaction Status Date / Time No Known Allergies Allergy Verified 09/19/20 09:26 [No Known Allergies*] Review of Systems Review of Systems Review of systems: General: Patient denies any fever chills recent illness or falls Musculoskeletal: Denies back pain or body aches or other injuries HEENT: denies headache, runny nose, ear pain Respiratory: denies shortness of breath, cough Cardiovascular: no chest pain or palpitations : denies dysuria, frequency Abdomen: no nausea vomiting patient does have abdominal distension Extremities: no swelling, no pain Skin: no diaphoresis Yes all other systems are reviewed and are negative Physical Exam Vital Signs: Vital Signs: Last Vital Signs Temp 97.6 F 04/17/21 17:48 Pulse 81 04/17/21 18:49 Resp 18 04/17/21 17:48 BP 125/69 04/17/21 18:49 Pulse Ox 95 04/17/21 18:49 Body Mass Index 33.3 General: Well-appearing well-nourished in no signs of distress HEENT: Normocephalic atraumatic Neck: No signs of JVD, no masses no tenderness or lymphadenopathy Cardiovascular: Regular rate and rhythm Respiratory: Clear to auscultation bilaterally Abdomen: Soft nontender distended tympanic abdomen no masses Extremities: Normal pedal pulses no signs of edema Skin: Dry warm no rashes Back: No tenderness full ROM Procedures Paracentesis Time Out Performed: Yes Local Anesthetic: lidocaine 1% Amount of anesthesia used (mL): 10 Fluid: clear Post Procedure Exam: awake, alert Patient Tolerated Procedure: well and no complications Complications: none and possible vessel injury MDM - Abdominal Pain MDM Narrative Medical decision making narrative: I will check labs and make sure this patient does have an infection I will get a diagnostic tap patient does not look to be in acute distress normal vitals of check labs including ammonia level. 2003 pain vanished after getting out about 500 cc of fluid acuity 2500 cc out I did send off the fluid for SBP labs. I also will check an ammonia level her LFT's and lipase. I did have to attempted 4 times and eventually got the fluid out. Patient did experience minimal amount of pain on the 1st 2 times in left side on the right side there is no pain but initially of fluid and I did flow and I sent the catheter took the catheter off and was able to get the fluid with just the needle in place. After 2500 cc out of control even just a needle in there and the needle was withdrawn. Patient tolerated procedure well. No bleeding. 2017 Labs are all normal no SBP I will send home with GI follow up. Lab Data Result diagrams: 04/17/21 19:52 04/17/21 19:52 Labs: Lab Results 04/17/21 04/17/21 04/17/21 Range/Units 19:52 19:52 19:52 WBC 7.6 (4.8-10.8) X10*3/uL RBC 4.13 L (4.20-5.50) X10*6/uL Hgb 13.6 (12.0-16.0) g/dl Hct 40.5 (37-47) % MCV 98.1 H (80-98) fL MCH 32.9 (27.0-33.0) pg MCHC 33.6 (31.0-35.0) g/dl RDW 14.9 (11.0-16.0) % Plt Count 146 L D (160-400) X10*3/uL MPV 10.2 (9.4-12.3) fL Immature Gran % (Auto) 0.5 H (0.0-0.4) % Neut % (Auto) 75.6 H (45-73) % Lymph % (Auto) 14.3 L (20-40) % [place] % (Auto) 9.2 (2-11) % Eos % (Auto) 0.0 (0-4) % Baso % (Auto) 0.4 (0-2) % Lymph # (Auto) 1.1 L (1.2-4.9) X10*3/uL [place] # (Auto) 0.7 (0.1-1.2) X10*3/uL Eos # (Auto) 0.0 (0.0-0.4) X10*3/uL Baso # (Auto) 0.0 (0.0-0.2) X10*3/uL Abs Immat Gran (auto) 0.04 H (0.00-0.03) X10*3/uL Absolute Neuts (auto) 5.7 (2.0-8.3) X10*3/uL Absolute Nucleated RBC 0.000 (0.0-0.012) X10*3/uL Nucleated RBC % (auto) 0.0 (0.0-0.2) /100WBC Sodium (135-145) mmol/L Potassium (3.3-5.1) mmol/L Chloride (96-108) mmol/L Carbon Dioxide (22-29) mmol/L Anion Gap (12-20) BUN (9-16) mg/dL Creatinine (0.5-1.4) mg/dL Estim Creat Clear Calc Estimated GFR Random Glucose (60-115) mg/dL Calcium (8.4-10.2) mg/dL Total Bilirubin (0.0-1.0) mg/dL Direct Bilirubin (0.0-0.5) mg/dL AST (5-31) U/L ALT (0-31) U/L Alkaline Phosphatase 158 H D (39-117) U/L Ammonia (13-55) umol/L Total Protein 6.1 L (6.5-8.0) g/dL Albumin (3.5-5.0) g/dL Triglycerides 87 mg/dL Amylase 26 L (28-100) U/L Lipase (8-78) U/L Peritoneal WBC X10*3/uL Peritoneal RBC X10*6/uL Ethyl Alcohol mg/dL 04/17/21 04/17/21 04/17/21 Range/Units 19:52 19:52 19:52 WBC (4.8-10.8) X10*3/uL RBC (4.20-5.50) X10*6/uL Hgb (12.0-16.0) g/dl Hct (37-47) % MCV (80-98) fL MCH (27.0-33.0) pg MCHC (31.0-35.0) g/dl RDW (11.0-16.0) % Plt Count (160-400) X10*3/uL MPV (9.4-12.3) fL Immature Gran % (Auto) (0.0-0.4) % Neut % (Auto) (45-73) % Lymph % (Auto) (20-40) % [place] % (Auto) (2-11) % Eos % (Auto) (0-4) % Baso % (Auto) (0-2) % Lymph # (Auto) (1.2-4.9) X10*3/uL [place] # (Auto) (0.1-1.2) X10*3/uL Eos # (Auto) (0.0-0.4) X10*3/uL Baso # (Auto) (0.0-0.2) X10*3/uL Abs Immat Gran (auto) (0.00-0.03) X10*3/uL Absolute Neuts (auto) (2.0-8.3) X10*3/uL Absolute Nucleated RBC (0.0-0.012) X10*3/uL Nucleated RBC % (auto) (0.0-0.2) /100WBC Sodium 138 (135-145) mmol/L Potassium 3.4 (3.3-5.1) mmol/L Chloride 104 (96-108) mmol/L Carbon Dioxide 26 (22-29) mmol/L Anion Gap 11 L (12-20) BUN 11 (9-16) mg/dL Creatinine 0.92 (0.5-1.4) mg/dL Estim Creat Clear Calc 75.1 Estimated GFR > 60 Random Glucose 295 H D (60-115) mg/dL Calcium 8.2 L (8.4-10.2) mg/dL Total Bilirubin 1.0 (0.0-1.0) mg/dL Direct Bilirubin 0.6 H (0.0-0.5) mg/dL AST 34 H (5-31) U/L ALT 28 (0-31) U/L Alkaline Phosphatase 158 H (39-117) U/L Ammonia 50 (13-55) umol/L Total Protein 6.1 L (6.5-8.0) g/dL Albumin 2.5 L (3.5-5.0) g/dL Triglycerides mg/dL Amylase (28-100) U/L Lipase 72 (8-78) U/L Peritoneal WBC X10*3/uL Peritoneal RBC X10*6/uL Ethyl Alcohol < 10 mg/dL 04/17/21 Range/Units 19:52 WBC (4.8-10.8) X10*3/uL RBC (4.20-5.50) X10*6/uL Hgb (12.0-16.0) g/dl Hct (37-47) % MCV (80-98) fL MCH (27.0-33.0) pg MCHC (31.0-35.0) g/dl RDW (11.0-16.0) % Plt Count (160-400) X10*3/uL MPV (9.4-12.3) fL Immature Gran % (Auto) (0.0-0.4) % Neut % (Auto) (45-73) % Lymph % (Auto) (20-40) % [place] % (Auto) (2-11) % Eos % (Auto) (0-4) % Baso % (Auto) (0-2) % Lymph # (Auto) (1.2-4.9) X10*3/uL [place] # (Auto) (0.1-1.2) X10*3/uL Eos # (Auto) (0.0-0.4) X10*3/uL Baso # (Auto) (0.0-0.2) X10*3/uL Abs Immat Gran (auto) (0.00-0.03) X10*3/uL Absolute Neuts (auto) (2.0-8.3) X10*3/uL Absolute Nucleated RBC (0.0-0.012) X10*3/uL Nucleated RBC % (auto) (0.0-0.2) /100WBC Sodium (135-145) mmol/L Potassium (3.3-5.1) mmol/L Chloride (96-108) mmol/L Carbon Dioxide (22-29) mmol/L Anion Gap (12-20) BUN (9-16) mg/dL Creatinine (0.5-1.4) mg/dL Estim Creat Clear Calc Estimated GFR Random Glucose (60-115) mg/dL Calcium (8.4-10.2) mg/dL Total Bilirubin (0.0-1.0) mg/dL Direct Bilirubin (0.0-0.5) mg/dL AST (5-31) U/L ALT (0-31) U/L Alkaline Phosphatase (39-117) U/L Ammonia (13-55) umol/L Total Protein (6.5-8.0) g/dL Albumin (3.5-5.0) g/dL Triglycerides mg/dL Amylase (28-100) U/L Lipase (8-78) U/L Peritoneal WBC 0.263 X10*3/uL Peritoneal RBC < 0.002 X10*6/uL Ethyl Alcohol mg/dL Discharge Plan Discharge Clinical Impression: Chronic hepatic failure, Abdominal ascites, Ascites due to alcoholic cirrhosis Instructions: Cirrhosis (ED), Liver Disease Diet (DC), Ascites (ED), Paracentesis (DC) Additional Instructions: Please call the doctor you need to have the same procedure done regularly after doctor's office if you have any other concerns please do not hesitate to come back to the emergency department. Prescriptions: No Action Trulicity 1.5 mg/0.5 mL pen injector 1.5 mg subcut QWEEK Qty: 2 RF: 1 insulin aspart U-100 [Novolog Flexpen U-100 Insulin] 100 unit/mL (3 mL) insulin pen 30 unit subcut TID Qty: 15 RF: 1 blood sugar diagnostic [FreeStyle Lite Strips] Strip 1 strip miscellaneous TID Qty: 300 RF: 12 carvedilol 3.125 mg tablet 3.125 mg PO BID Qty: 180 RF: 1 hyoscyamine sulfate 0.125 mg tablet 0.125 mg PO QID PRN (Reason: dyspepsia) Qty: 10 RF: 0 ondansetron HCl [Zofran] 4 mg tablet 4 mg PO Q6H PRN (Reason: nausea and vomiting) Qty: 10 RF: 0 spironolactone 25 mg tablet 25 mg PO DAILY PRNRF: 0 ferrous sulfate 325 mg (65 mg iron) tablet 325 mg PO DAILY RF: 0 furosemide 20 mg tablet 20 mg PO DAILY RF: 0 insulin glargine 100 unit/mL (3 mL) insulin pen 100 unit subcut RF: 0 PMFSH Past Medical History Medical History (Updated 04/17/21 @ 20:05 by Kiet Go DO) Diabetes (~01/31/21) Family History Family History Mother No problems noted. Father No problems noted. Social History Social History Alcohol intake: never Patient Tobacco Use Status: Never used Tobacco Use of substances other than those prescribed or required for medical reasons: No Advance Directives: No Patient : No
[2021-04-17 18:49] VITALS: BP 125/69; PULSE 81; O2SAT 95
[2021-04-17 19:58] LABS: MANUAL DIFF FLAG NO
[2021-04-17 20:00] LABS: Basophils Percent Auto 0.4 % (0-2); Hematocrit 40.5 % (37-47); Hemoglobin 13.6 g/dl (12.0-16.0); Imm Gran Abs Auto 0.04 X10*3/uL (0.00-0.03); Imm Gran Pct Auto 0.5 % (0.0-0.4); Lymphocytes Absolute Auto 1.1 X10*3/uL (1.2-4.9); Lymphocytes Percent Auto 14.3 % (20-40); Mean Corpuscular HGB Conc 33.6 g/dl (31.0-35.0); Mean Corpuscular Hemoglobin 32.9 pg (27.0-33.0); Mean Corpuscular Volume 98.1 fL (80-98); Mean Platelet Volume 10.2 fL (9.4-12.3); Monocytes Absolute Auto 0.7 X10*3/uL (0.1-1.2); Monocytes Percent Auto 9.2 % (2-11); Neutrophils Absolute Auto 5.7 X10*3/uL (2.0-8.3); Neutrophils Percent Auto 75.6 % (45-73); Platelet Count 146 X10*3/uL (160-400); Red Blood Count 4.13 X10*6/uL (4.20-5.50); Red Cell Distribution Width 14.9 % (11.0-16.0); White Blood Count 7.6 X10*3/uL (4.8-10.8)
[2021-04-17 20:05] LABS: MN% 79.1 %; PMN% 20.9 %; WBC Peritoneal Fluid 0.263 X10*3/uL
[2021-04-17 20:06] LABS: Ammonia 50 umol/L (13-55); RBC Peritoneal Fluid < 0.002 X10*6/uL
[2021-04-17 20:11] LABS: Alkaline Phosphatase 158 U/L (39-117); Ethanol < 10 mg/dL
[2021-04-17 20:12] LABS: Total Protein 6.1 g/dL (6.5-8.0); Triglycerides 87 mg/dL
[2021-04-17 20:13] LABS: Alanine Aminotransferase 28 U/L (0-31); Albumin Level 2.5 g/dL (3.5-5.0); Alkaline Phosphatase 158 U/L (39-117); Anion Gap 11 (12-20); Aspartate Amino Transferase 34 U/L (5-31); Bilirubin Direct 0.6 mg/dL (0.0-0.5); Blood Urea Nitrogen 11 mg/dL (9-16); Calcium 8.2 mg/dL (8.4-10.2); Carbon Dioxide 26 mmol/L (22-29); Chloride 104 mmol/L (96-108); Creatinine Clr Calc Pharmacy 75.1; Estimated Glomerular Filt Rate > 60; Glucose Random 295 mg/dL (60-115); Lipase 72 U/L (8-78); Potassium 3.4 mmol/L (3.3-5.1); Sodium 138 mmol/L (135-145); Total Protein 6.1 g/dL (6.5-8.0)
[2021-04-17 20:16] LABS: Amylase 26 U/L (28-100)
[2021-04-17 20:34] LABS: BF Shift QC OK YES; Lymphocyte Peritoneal Fl 49 %; Monocytes Peritoneal Fl 19 %; Neutrophils Peritoneal Fluid 18 %; Other Peritioneal Fl 14 %
== END 2021-04-17 20:38 | disposition home or self-care (01) ==
PROVIDERS: Emergency Provider Student in an Organized Health Care Education/Training Program; PCP Internal Medicine
DX: K72.90 Hepatic failure, unspecified without coma (principal); K70.31 Alcoholic cirrhosis of liver with ascites; R10.9 Unspecified abdominal pain; R06.02 Shortness of breath; Z79.899 Other long term (current) drug therapy
CPT/HCPCS: 36415; 49082; 80048; 80076; 82077; 82140; 82150; 83690; 84075; 84155; 84478; 85025; 87070; 87073; 87205; 89051; 99284; 99285

== ENCOUNTER 2021-05-18 11:37 | Emergency (ER) | payer OTHER, SELFPAY ==
--- NOTE | ~2021-05-18 | US_ITS ---
EXAMINATION: ULTRASOUND-GUIDED PARACENTESIS. CLINICAL INFORMATION: Ascites. COMPARISON: None TECHNIQUE: Following explaining ultrasound guided paracentesis procedure, benefits and risk, a written consent was obtained. Patient was placed supine on ultrasound stretcher and preliminary ultrasound imaging was obtained. An optimal site was selected, marked and draped in usual sterile manner. 1% lidocaine was injected at the marked site left lower quadrant. 3 small skin incision a 5 [place] Yueh catheter was advanced into the peritoneal space. After obtaining fluid return, stylet was withdrawn and catheter connected to vacuum bottle via a connecting cannula. After obtaining all fluid and observing normal fluid return, catheter was withdrawn and complete hemostasis achieved at puncture site. Sterile dressing applied postprocedure. Patient was monitored during the exam and tolerated procedure extremely well. FINDINGS: On preliminary ultrasound imaging there is a large amount of fluid noted in both flanks. Approximate 6.1 L of clear yellowish fluid was drained from left lower quadrant. Part of this fluid was sent to lab for further analysis as per ER physician orders. US/US paracentesis abd w/image IMPRESSION: Successful ultrasound-guided paracentesis performed.
[2021-05-18 11:50] VITALS: BP 117/93; BP 136/80; PULSE 100; PULSE 102; RESP 22; TEMP 37.2; O2SAT 97; O2SAT 99; BMI 33.3
--- NOTE | 2021-05-18 12:00 | ED.ABDPAIN ---
HPI - Abdominal Pain General Chief Complaint: Abdominal Pain Stated Complaint: Abd Pain Time Seen by Provider: 05/18/21 11:58 Source: patient and EMS Mode of arrival: EMS Limitations: no limitations History of Present Illness HPI narrative: 55 y/o female with history of cirrhosis with large volume ascites, history of DM who presents to the ER with abdominal pain and distention. Her last paracentesis was 04/17 and 2.5L were removed. She reports that was her first time. She thinks she has a liver doctor but cannot recall. She thinks she is on diuretic medication but does not know the names and states they don't work. She has diffuse abdominal pain from the distention. She is short of breath when she lays down. She denies chest pain. She does not know what her cirrhosis is from. Denies alcohol use or hepatitis C. MD elicited complaint: abdominal pain Pertinent past history: other (cirrhosis) Onset (ago): week(s) Pain Consistency: constant Location: diffuse Severity: severe Pain scale (0-10): 9 Quality: aching and fullness Radiation: none Migration to: no migration Exacerbating factors: nothing Relieving factors: nothing Context: history of similar episodes Associated symptoms: denies other symptoms Related Data Home Medications Medication Instructions Recorded Confirmed ferrous sulfate 325 mg (65 mg 325 mg PO DAILY 09/05/20 05/18/21 iron) tablet furosemide 20 mg tablet 20 mg PO DAILY 09/05/20 05/18/21 spironolactone 25 mg tablet 25 mg PO DAILY PRN tab 09/05/20 05/18/21 dulaglutide 1.5 mg/0.5 mL 1.5 mg SUBCUT TU 05/18/21 05/18/21 subcutaneous pen injector (Trulicity) insulin glargine 100 unit/mL (3 100 unit SUBCUT BEDTIME 05/18/21 05/18/21 mL) subcutaneous pen Previous Rx's Medication Instructions Recorded carvedilol 3.125 mg tablet 3.125 mg PO BID #180 tab 03/09/21 insulin aspart U-100 100 unit/mL 30 unit SUBCUT TID #15 cap 04/18/21 (3 mL) subcutaneous pen (Novolog Flexpen U-100 Insulin aspart) furosemide 20 mg tablet (Lasix) 20 mg PO QAM #14 tab 05/18/21 Allergies Allergy/AdvReac Type Severity Reaction Status Date / Time No Known Allergies Allergy Verified 09/19/20 09:26 [No Known Allergies*] Review of Systems Review of Systems Constitutional: No Fever, No Chills ENT/Mouth: No sore throat, No Rhinorrhea, No Swallowing Difficulty Cardiovascular: No Chest Pain, No SOB, No Orthopnea, No Edema Respiratory: No Cough, No Sputum, No Wheezing, No dyspnea Gastrointestinal: No Nausea, No Vomiting, No Diarrhea, + abdominal Pain, No Hematochezia, No Melena Genitourinary: No Dysuria, No Urinary Frequency, No Hematuria Musculoskeletal: No joint pain, No Myalgias Skin: No Skin Lesions, No rash Neuro: No Weakness, No Numbness, No Dizziness, No Headache Psych: No Anxiety/Panic, No Depression Heme/Lymph: No Bruising, No Lymphadenopathy Endocrine: No Polyuria, No Polydipsia Physical Exam Vital Signs: Vital Signs: Last Vital Signs Temp 98.4 F 05/18/21 14:08 Pulse 87 05/18/21 15:54 Resp 16 05/18/21 15:54 BP 125/73 05/18/21 15:54 Pulse Ox 98 05/18/21 15:54 Body Mass Index 33.3 Appearance: Alert. Oriented X3. No acute distress. Eyes: Pupils equal, round and reactive to light. ENT: Pharynx normal. Neck: Normal inspection. Neck supple. CVS: Normal heart rate and rhythm. Pulses normal. Respiratory: No respiratory distress. Breath sounds normal. Abdomen: significant abdominal distention and diffuse tenderness throughout, abd is tense. +BS x4 Skin: Skin warm and dry. Normal skin color. Normal skin turgor. No rashes. Extremities: No lower extremity edema. Neuro: Oriented X 3. No motor deficit. No sensory deficit. Course Course Course Narrative: 55 y/o female with history of liver cirrhosis, most likely due to [place] who presents with abdominal pain and distention. She required her 1st large volume paracentesis one month ago. Will check basic labs and get IR consult for large volume diagnostic and therapeutic paracentesis. Reevaluation(s) Reevaluation #1: Labs show glucose 450, no gap. Will give SQ insulin and reassess. IR consulted for tap. Reevaluation #2: Med rec completed by pharmacy - patient admits to noncompliance with her spironolactone. Reevaluation #3: IR perfromed therapeutic paracentesis with 6.1L removed. She was given albumin. She is stable for discharge home. We discussed importance of diuretic therapy compliance and follow up with GI. MDM - Abdominal Pain Lab Data Result diagrams: 05/18/21 12:27 05/18/21 12:27 Labs: Lab Results 05/18/21 05/18/21 05/18/21 Range/Units 12: 12:27 12:27 WBC 4.8 (4.8-10.8) X10*3/uL RBC 3.97 L (4.20-5.50) X10*6/uL Hgb 13.2 (12.0-16.0) g/dl Hct 39.9 (37-47) % MCV 100.5 H (80-98) fL MCH 33.2 H (27.0-33.0) pg MCHC 33.1 (31.0-35.0) g/dl RDW 15.5 (11.0-16.0) % Plt Count 132 L (160-400) X10*3/uL MPV 9.6 (9.4-12.3) fL Immature Gran % (Auto) 0.2 (0.0-0.4) % Neut % (Auto) 75.8 H (45-73) % Lymph % (Auto) 16.1 L (20-40) % [place] % (Auto) 7.5 (2-11) % Eos % (Auto) 0.0 (0-4) % Baso % (Auto) 0.4 (0-2) % Lymph # (Auto) 0.8 L (1.2-4.9) X10*3/uL [place] # (Auto) 0.4 (0.1-1.2) X10*3/uL Eos # (Auto) 0.0 (0.0-0.4) X10*3/uL Baso # (Auto) 0.0 (0.0-0.2) X10*3/uL Abs Immat Gran (auto) 0.01 (0.00-0.03) X10*3/uL Absolute Neuts (auto) 3.6 (2.0-8.3) X10*3/uL Absolute Nucleated RBC 0.000 (0.0-0.012) X10*3/uL Nucleated RBC % (auto) 0.0 (0.0-0.2) /100WBC PT (9.9-13.0) SEC INR (0.9-1.1) APTT (24.1-38.0) SEC Sodium 135 (135-145) mmol/L Potassium 3.9 (3.3-5.1) mmol/L Chloride 99 (96-108) mmol/L Carbon Dioxide 28 (22-29) mmol/L Anion Gap 12 (12-20) BUN 14 (9-16) mg/dL Creatinine 1.04 (0.5-1.4) mg/dL Estim Creat Clear Calc 66.4 Estimated GFR 55 POC Glucose (60-115) mg/dL Random Glucose 450 H* (60-115) mg/dL Calcium 7.6 L D (8.4-10.2) mg/dL Magnesium 1.8 (1.6-2.6) mg/dL Total Bilirubin 1.7 H (0.0-1.0) mg/dL Direct Bilirubin 0.8 H (0.0-0.5) mg/dL AST 36 H (5-31) U/L ALT 23 (0-31) U/L Alkaline Phosphatase 114 D (39-117) U/L B-Natriuretic Peptide 114 H (<100) pg/mL Total Protein 6.3 L (6.5-8.0) g/dL Albumin 2.3 L (3.5-5.0) g/dL Urine Color Urine Appearance Urine pH (5.0-8.0) Ur Specific [place] (1.005-1.025) Urine Protein (NEG-TRACE) MG/DL Urine Glucose (UA) (NEG) MG/DL Urine Ketones (NEG) MG/DL Urine Blood (NEG) Urine Nitrite (NEG) Ur Leukocyte Esterase (NEG) Urine RBC (0) /HPF Urine WBC (0-4) /HPF Ur Squamous Epith Cells /LPF Urine Bacteria /LPF COVID-19 ([facility]) (Negative) COVID-19 Clin Com 05/18/21 05/18/21 05/18/21 Range/Units 12:27 12:27 13:10 WBC (4.8-10.8) X10*3/uL RBC (4.20-5.50) X10*6/uL Hgb (12.0-16.0) g/dl Hct (37-47) % MCV (80-98) fL MCH (27.0-33.0) pg MCHC (31.0-35.0) g/dl RDW (11.0-16.0) % Plt Count (160-400) X10*3/uL MPV (9.4-12.3) fL Immature Gran % (Auto) (0.0-0.4) % Neut % (Auto) (45-73) % Lymph % (Auto) (20-40) % [place] % (Auto) (2-11) % Eos % (Auto) (0-4) % Baso % (Auto) (0-2) % Lymph # (Auto) (1.2-4.9) X10*3/uL [place] # (Auto) (0.1-1.2) X10*3/uL Eos # (Auto) (0.0-0.4) X10*3/uL Baso # (Auto) (0.0-0.2) X10*3/uL Abs Immat Gran (auto) (0.00-0.03) X10*3/uL Absolute Neuts (auto) (2.0-8.3) X10*3/uL Absolute Nucleated RBC (0.0-0.012) X10*3/uL Nucleated RBC % (auto) (0.0-0.2) /100WBC PT 13.9 H (9.9-13.0) SEC INR 1.2 H (0.9-1.1) APTT 34.6 (24.1-38.0) SEC Sodium (135-145) mmol/L Potassium (3.3-5.1) mmol/L Chloride (96-108) mmol/L Carbon Dioxide (22-29) mmol/L Anion Gap (12-20) BUN (9-16) mg/dL Creatinine (0.5-1.4) mg/dL Estim Creat Clear Calc Estimated GFR POC Glucose 376 H* (60-115) mg/dL Random Glucose (60-115) mg/dL Calcium (8.4-10.2) mg/dL Magnesium (1.6-2.6) mg/dL Total Bilirubin (0.0-1.0) mg/dL Direct Bilirubin (0.0-0.5) mg/dL AST (5-31) U/L ALT (0-31) U/L Alkaline Phosphatase (39-117) U/L B-Natriuretic Peptide (<100) pg/mL Total Protein (6.5-8.0) g/dL Albumin (3.5-5.0) g/dL Urine Color Urine Appearance Urine pH (5.0-8.0) Ur Specific [place] (1.005-1.025) Urine Protein (NEG-TRACE) MG/DL Urine Glucose (UA) (NEG) MG/DL Urine Ketones (NEG) MG/DL Urine Blood (NEG) Urine Nitrite (NEG) Ur Leukocyte Esterase (NEG) Urine RBC (0) /HPF Urine WBC (0-4) /HPF Ur Squamous Epith Cells /LPF Urine Bacteria /LPF COVID-19 ([facility]) Negative (Negative) COVID-19 Clin Com See Note 05/18/21 Range/Units 16:00 WBC (4.8-10.8) X10*3/uL RBC (4.20-5.50) X10*6/uL Hgb (12.0-16.0) g/dl Hct (37-47) % MCV (80-98) fL MCH (27.0-33.0) pg MCHC (31.0-35.0) g/dl RDW (11.0-16.0) % Plt Count (160-400) X10*3/uL MPV (9.4-12.3) fL Immature Gran % (Auto) (0.0-0.4) % Neut % (Auto) (45-73) % Lymph % (Auto) (20-40) % [place] % (Auto) (2-11) % Eos % (Auto) (0-4) % Baso % (Auto) (0-2) % Lymph # (Auto) (1.2-4.9) X10*3/uL [place] # (Auto) (0.1-1.2) X10*3/uL Eos # (Auto) (0.0-0.4) X10*3/uL Baso # (Auto) (0.0-0.2) X10*3/uL Abs Immat Gran (auto) (0.00-0.03) X10*3/uL Absolute Neuts (auto) (2.0-8.3) X10*3/uL Absolute Nucleated RBC (0.0-0.012) X10*3/uL Nucleated RBC % (auto) (0.0-0.2) /100WBC PT (9.9-13.0) SEC INR (0.9-1.1) APTT (24.1-38.0) SEC Sodium (135-145) mmol/L Potassium (3.3-5.1) mmol/L Chloride (96-108) mmol/L Carbon Dioxide (22-29) mmol/L Anion Gap (12-20) BUN (9-16) mg/dL Creatinine (0.5-1.4) mg/dL Estim Creat Clear Calc Estimated GFR POC Glucose (60-115) mg/dL Random Glucose (60-115) mg/dL Calcium (8.4-10.2) mg/dL Magnesium (1.6-2.6) mg/dL Total Bilirubin (0.0-1.0) mg/dL Direct Bilirubin (0.0-0.5) mg/dL AST (5-31) U/L ALT (0-31) U/L Alkaline Phosphatase (39-117) U/L B-Natriuretic Peptide (<100) pg/mL Total Protein (6.5-8.0) g/dL Albumin (3.5-5.0) g/dL Urine Color YELLOW Urine Appearance HAZY Urine pH 6.0 (5.0-8.0) Ur Specific [place] 1.025 (1.005-1.025) Urine Protein NEG (NEG-TRACE) MG/DL Urine Glucose (UA) >=1000 H (NEG) MG/DL Urine Ketones 5 (NEG) MG/DL Urine Blood 1+ H (NEG) Urine Nitrite NEG (NEG) Ur Leukocyte Esterase NEG (NEG) Urine RBC 1-4 (0) /HPF Urine WBC 1-4 (0-4) /HPF Ur Squamous Epith Cells TRACE /LPF Urine Bacteria 3+ /LPF COVID-19 ([facility]) (Negative) COVID-19 Clin Com Critical Care Time Critical Care Time Critical Care Time: No Discharge Plan Discharge Clinical Impression: Abdominal ascites, Hyperglycemia Patient Disposition: Home, Self-Care Instructions: Ascites (ED), Paracentesis (DC) Additional Instructions: Recommend following up with GI for management of your cirrhosis. Recommend resuming your Spironolactone 25 mg - take it every day Take the prescribed lasix as well to help prevent re-accumulation of your ascites. Your glucose today was 300-400 range. Follow up with your doctor as soon as possible for further management. If you develop new or worsening symptoms call 911 or come back to the ER for further evaluation. Prescriptions: New furosemide [Lasix] 20 mg tablet 20 mg PO QAM Qty: 14 RF: 0 No Action carvedilol 3.125 mg tablet 3.125 mg PO BID Qty: 180 RF: 1 insulin aspart U-100 [Novolog Flexpen U-100 Insulin] 100 unit/mL (3 mL) insulin pen 30 unit subcut TID Qty: 15 RF: 1 insulin glargine 100 unit/mL (3 mL) insulin pen 100 unit subcut BEDTIME RF: 0 Trulicity 1.5 mg/0.5 mL pen injector 1.5 mg subcut TU RF: 0 spironolactone 25 mg tablet 25 mg PO DAILY PRN (Reason: Edema) RF: 0 ferrous sulfate 325 mg (65 mg iron) tablet 325 mg PO DAILY RF: 0 furosemide 20 mg tablet 20 mg PO DAILY RF: 0 Referrals: Talon Langley MD [Physician] - 2 days (decompensated liver cirrhosis with refractory ascites. ) [facility] Past Medical History Medical History (Updated 05/18/21 @ 17:29 by MARIZOL Rubio) Cirrhosis Diabetes (~01/31/21) HTN (hypertension) Family History Family History Mother No problems noted. Father No problems noted. Social History Social History Alcohol intake: never Patient Tobacco Use Status: Never used Tobacco Advance Directives: No Advance Directives Information Provided: No
[2021-05-18 12:31] LABS: MANUAL DIFF FLAG NO
[2021-05-18 12:32] LABS: Basophils Percent Auto 0.4 % (0-2); Hematocrit 39.9 % (37-47); Hemoglobin 13.2 g/dl (12.0-16.0); Imm Gran Abs Auto 0.01 X10*3/uL (0.00-0.03); Imm Gran Pct Auto 0.2 % (0.0-0.4); Lymphocytes Absolute Auto 0.8 X10*3/uL (1.2-4.9); Lymphocytes Percent Auto 16.1 % (20-40); Mean Corpuscular HGB Conc 33.1 g/dl (31.0-35.0); Mean Corpuscular Hemoglobin 33.2 pg (27.0-33.0); Mean Corpuscular Volume 100.5 fL (80-98); Mean Platelet Volume 9.6 fL (9.4-12.3); Monocytes Absolute Auto 0.4 X10*3/uL (0.1-1.2); Monocytes Percent Auto 7.5 % (2-11); Neutrophils Absolute Auto 3.6 X10*3/uL (2.0-8.3); Neutrophils Percent Auto 75.8 % (45-73); Platelet Count 132 X10*3/uL (160-400); Red Blood Count 3.97 X10*6/uL (4.20-5.50); Red Cell Distribution Width 15.5 % (11.0-16.0); White Blood Count 4.8 X10*3/uL (4.8-10.8)
[2021-05-18 12:39] LABS: INTERNATIONAL NORM RATIO 1.2 (0.9-1.1); Prothrombin Time 13.9 SEC (9.9-13.0)
[2021-05-18 12:41] LABS: Partial Thromboplastin Time 34.6 SEC (24.1-38.0)
[2021-05-18 12:50] LABS: COVID-19 Test Negative (Negative)
[2021-05-18 12:52] LABS: Alanine Aminotransferase 23 U/L (0-31); Albumin Level 2.3 g/dL (3.5-5.0); Alkaline Phosphatase 114 U/L (39-117); Anion Gap 12 (12-20); Aspartate Amino Transferase 36 U/L (5-31); Bilirubin Direct 0.8 mg/dL (0.0-0.5); Bilirubin Total 1.7 mg/dL (0.0-1.0); Blood Urea Nitrogen 14 mg/dL (9-16); Calcium 7.6 mg/dL (8.4-10.2); Carbon Dioxide 28 mmol/L (22-29); Chloride 99 mmol/L (96-108); Creatinine Clr Calc Pharmacy 66.4; Estimated Glomerular Filt Rate 55; Glucose Random 450 mg/dL (60-115); Magnesium 1.8 mg/dL (1.6-2.6); Potassium 3.9 mmol/L (3.3-5.1); Sodium 135 mmol/L (135-145); Total Protein 6.3 g/dL (6.5-8.0)
[2021-05-18 12:55] LABS: B Type Natriuretic Peptide 114 pg/mL (<100)
[2021-05-18 13:15] VITALS: BP 125/78; PULSE 96; RESP 20; O2SAT 97
[2021-05-18 13:22] LABS: Glucose, Whole Blood 376 mg/dL (60-115)
[2021-05-18] MEDS: Insulin Lispro 100 UNIT/ML 3 ML VIAL 10 UNIT SUBCUT (13:25)
[2021-05-18 14:08] VITALS: BP 116/74; PULSE 96; RESP 14; TEMP 36.9; O2SAT 96
[2021-05-18] MEDS: HYDROcodone Bit/Acetam 5/325 TABLET 1 TAB PO (14:25)
[2021-05-18] MEDS: Albumin Human 25 % 100 ML IV (15:01)
[2021-05-18 15:54] VITALS: BP 125/73; PULSE 87; RESP 16; O2SAT 98
[2021-05-18 16:08] LABS: Appearance Urine HAZY; Color Urine YELLOW; Glucose Urine UA >=1000 MG/DL (NEG); Leukocyte Esterase Urine NEG (NEG); Nitrite Urine NEG (NEG); Specific Gravity - Urine 1.025 (1.005-1.025); UACC Culture Trigger NO; Urine Blood 1+ (NEG); Urine Ketones 5 MG/DL (NEG); Urine Protein NEG (NEG-TRACE)
--- NOTE | 2021-05-18 16:10 | PC.NURSE ---
patient to IR for paracentesis
[2021-05-18 16:25] LABS: Bacteria Urine 3+ /LPF; Squamous Epithelial Cell Urine TRACE /LPF
[2021-05-18] MEDS: Lidocaine HCl 1 % MPF 5 ML VIAL SUBCUT (17:35)
--- NOTE | 2021-05-18 17:50 | PC.NURSE ---
PT BACK FROM IR, 6.1 LITTERS TAKEN OF
[2021-05-18 17:59] LABS: MN% 83.3 %; PMN% 16.7 %; WBC Peritoneal Fluid 0.214 X10*3/uL
[2021-05-18 18:03] LABS: RBC Peritoneal Fluid < 0.002 X10*6/uL
[2021-05-18 18:05] VITALS: BP 117/61; PULSE 85; RESP 16; TEMP 36.4; O2SAT 97
[2021-05-18 18:21] LABS: Eosinophils Peritoneal Fl 2 %; Lymphocyte Peritoneal Fl 52 %; Monocytes Peritoneal Fl 8 %; Neutrophils Peritoneal Fluid 17 %; Other Peritioneal Fl 21 %
[2021-05-18 18:22] LABS: BF Shift QC OK YES
--- NOTE | 2021-05-18 18:24 | PC.NURSE ---
dressing to left lower abdomen from paracentesis CDI. patient reports feeling better at this time. vss
[2021-05-18 18:55] LABS: Glucose, Whole Blood 298 mg/dL (60-115)
== END 2021-05-18 18:52 | disposition home or self-care (01) ==
PROVIDERS: Physician Assistant; Radiology Diagnostic Radiology; Emergency Provider Emergency Medicine Emergency Medical Services; PCP Internal Medicine
DX: R10.9 Unspecified abdominal pain (principal); R18.8 Other ascites; E11.65 Type 2 diabetes mellitus with hyperglycemia; Z20.822 Contact with and (suspected) exposure to COVID-19; Z79.899 Other long term (current) drug therapy; Z79.4 Long term (current) use of insulin
CPT/HCPCS: 36415; 49083; 80048; 80076; 81001; 82947; 83735; 83880; 85025; 85610; 85730; 87635; 89051; 96365; 99284; P9047

== ENCOUNTER 2021-06-09 12:34 | Inpatient (IN) | payer OTHER, SELFPAY ==
--- NOTE | ~2021-06-09 | CT_ITS ---
EXAMINATION: CT ABDOMEN AND PELVIS WITHOUT CONTRAST CLINICAL INFORMATION: Left lower quadrant pain status post paracentesis. Rule out hematoma. COMPARISON: CT of September 14, 2019 and paracentesis of same day. TECHNIQUE: Multidetector volumetric imaging was performed from the superior aspect of the liver through the pubic symphysis. Sagittal and coronal reformatted images were obtained on the technologist's workstation. This CT examination was performed using dose optimization techniques as appropriate, variously including the following: *Automated exposure control *Adjustment of mA and/or kV according to patient size (this includes techniques or standardized protocols for targeted exams where dose is matched to indication/reason for exam; i.e. extremities or head) *Use of iterative reconstruction technique DLP: 1113 mGy-cm FINDINGS: LUNG BASES: There is atelectatic change seen at the lung bases. No pericardial pleural fluid collection. Coronary artery calcification is seen. LIVER, GALLBLADDER, AND BILIARY TREE: There is a small liver with nodular contour consistent with cirrhosis. No focal mass or intrahepatic bile duct dilatation is appreciated. There is recanalization of the umbilical vein. Cholelithiasis is present without evidence of acute cholecystitis. PANCREAS: No pancreatic masses appreciated. No pancreatic ductal dilatation is seen. SPLEEN: Unremarkable. ADRENAL GLANDS: Unremarkable. KIDNEYS AND URETERS: The kidneys are normal in size, shape, and attenuation. No hydronephrosis, hydroureter, or calculi seen. No significant perinephric stranding. BLADDER: Unremarkable. GASTROINTESTINAL TRACT: No dilated loops of large or small bowel are evident. There is moderate to large volume ascites present. No free air is appreciated. There is moderate stool burden present. Appendix not identified. No evidence of acute diverticulitis. ABDOMINAL WALL: There is diffuse anasarca present. Small amount of gas is seen within the left abdominal wall from previous paracentesis site. No underlying hematoma is appreciated. LYMPH NODES: No definite lymphadenopathy appreciated. VASCULAR: No abdominal aortic aneurysm. There is recanalization of the umbilical vein. Multiple portal varices are present and there appears to be a spontaneous left splenorenal shunt. PELVIC VISCERA: About the right pelvis there is a dermoid measuring approximately 4.9 x 4.0 cm in size containing calcification and fat OSSEOUS STRUCTURES: No suspicious destructive bony lesion identified. CT/CT abdomen pelvis wo con IMPRESSION: Hepatic cirrhosis with recanalization of the umbilical vein and numerous portal varices present with what appears to be a spontaneous splenorenal shunt. Cholelithiasis without evidence of acute cholecystitis. Moderate to large volume ascites. No abdominal wall hematoma appreciated. Right pelvic dermoid tumor.
--- NOTE | ~2021-06-09 | US_ITS ---
EXAMINATION: ULTRASOUND-GUIDED PARACENTESIS. CLINICAL INFORMATION: Patient has excruciating pain in the left abdomen. Recently had paracenteses at [facility] on 06/08/2021. COMPARISON: Ultrasound-guided paracentesis 05/18/2021 TECHNIQUE: Limited imaging through the 4 quadrants was performed. In addition Limited imaging to the left midabdomen and lower quadrant was performed where patient has significant pain. FINDINGS: There is a small amount of fluid within the 4 quadrants. However imaging to the left lower quadrant where patient had initial paracentesis performed yesterday patient has thickened abdominal wall, suspicious for hematoma. US/US paracentesis abd w/image IMPRESSION: Small to moderate amount of fluid. Paracentesis was not performed. Patient has pain in left lower quadrant where ultrasound guided paracentesis was performed yesterday. In this region there is a very echogenic and enlarged abdominal wall suspicious for hematoma. Consider CT abdomen without contrast. Results were discussed with Sury Chiu at 4:00 PM
--- NOTE | ~2021-06-09 | US_ITS ---
EXAMINATION: ULTRASOUND-GUIDED PARACENTESIS CLINICAL INFORMATION: Ascites COMPARISON: Previous CT of the abdomen and pelvis and paracentesis 06/09/2021 TECHNIQUE: Procedure and risks and benefits including bleeding, infection and low blood pressure were discussed with the patient and informed consent was obtained. The right lower quadrant was prepped and draped in the usual sterile fashion. The skin and soft tissues were anesthetized with 1% lidocaine plain. Using ultrasound guidance and a 5 [place] rapid centesis catheter, access to the ascitic fluid was obtained. 3.5 L of clear yellow fluid was removed. No diagnostic specimen was sent. FINDINGS: There is a moderate amount of ascites. US/US paracentesis abd w/image IMPRESSION: Ultrasound-guided paracentesis.
--- NOTE | ~2021-06-09 | XR_ITS ---
EXAMINATION: XR CHEST CLINICAL INFORMATION: Shortness of breath COMPARISON: September 15, 2019 TECHNIQUE: AP portable view of the chest was obtained. FINDINGS: There are small lung volumes with large body habitus. There is mild left basilar atelectasis. No acute significant parenchymal disease pneumothorax or pleural effusion is appreciated. Heart normal size. No evidence of pulmonary edema. XR/XR chest 1V IMPRESSION: No significant acute parenchymal disease.
[2021-06-09 12:44] VITALS: BP 105/59; BP 138/77; PULSE 89; PULSE 97; RESP 18; TEMP 36.4; O2SAT 98; BMI 37.4
--- NOTE | 2021-06-09 12:48 | PC.NURSE ---
Patient arrives to ED with abdominal pain. has distended stomach. hx of ascites, and paracentesis. VSS.
--- NOTE | 2021-06-09 12:49 | ED_ITS ---
HPI - Abdominal Pain General Chief Complaint: Abdominal Pain Stated Complaint: abd pain Time Seen by Provider: 06/09/21 12:48 Source: patient and EMS Mode of arrival: EMS Limitations: no limitations History of Present Illness HPI narrative: 55 y/o female with history of ARGUELLO cirrhosis with large volume ascites requiring recurrent large volume paracentesis since March 2021, history of poorly controlled DM on insulin who presents to the ER via EMS with abdominal pain. She was seen at [facility] yesterday and had a paracentesis done. Prior to that 6.1 L were taken off here on 05/18. She does not know how much fluid was removed in the ER yesterday. She was discharged at midnight and reports severe LLQ pain where they did the paracentesis. She did not sleep all night because of the pain and eventually called 911. She denies fever, chills, N/V/D. She reports compliance with her diuretic medication but it has not helped her ascites accumulation. She has had worsening lower extremity swelling and pain, this is limiting her mobility and states she can barely walk. She also reports some mild shortness of breath and this is due to her abdomen pushing up on her chest. MD elicited complaint: abdominal pain Pertinent past history: other (cirrhosis with ascites and recent paracentesis) Onset (ago): unknown Pain Consistency: constant Location: LLQ Severity: severe Pain scale (0-10): 10 Quality: stabbing Radiation: none Migration to: no migration Exacerbating factors: nothing Relieving factors: nothing Context: history of similar episodes Associated symptoms: denies other symptoms Related Data Home Medications Medication Instructions Recorded Confirmed ferrous sulfate 325 mg (65 mg 325 mg PO DAILY 09/05/20 06/09/21 iron) tablet furosemide 20 mg tablet 20 mg PO DAILY 09/05/20 06/09/21 spironolactone 25 mg tablet 25 mg PO DAILY tab 09/05/20 06/09/21 insulin glargine 100 unit/mL (3 100 unit SUBCUT TU 05/18/21 06/09/21 mL) subcutaneous pen cephalexin 500 mg capsule 1 cap PO TID 06/09/21 06/09/21 polyethylene glycol 3350 17 17 g PO DAILY PRN 06/09/21 06/09/21 gram/dose oral powder (Gavilax) sennosides 8.6 mg-docusate sodium 1 tab PO DAILY 06/09/21 06/09/21 50 mg tablet (Senna Plus) Previous Rx's Medication Instructions Recorded carvedilol 3.125 mg tablet 3.125 mg PO BID #180 tab 03/09/21 insulin aspart U-100 100 unit/mL 30 unit SUBCUT TID #15 cap 04/18/21 (3 mL) subcutaneous pen (Novolog Flexpen U-100 Insulin aspart) Allergies Allergy/AdvReac Type Severity Reaction Status Date / Time No Known Allergies Allergy Verified 09/19/20 09:26 [No Known Allergies*] Review of Systems Review of Systems Constitutional: No Fever, No Chills ENT/Mouth: No sore throat, No Rhinorrhea, No Swallowing Difficulty Cardiovascular: No Chest Pain, + SOB, + Orthopnea, + Edema Respiratory: No Cough, No Sputum, No Wheezing, No dyspnea Gastrointestinal: + Nausea, No Vomiting, No Diarrhea, + abdominal Pain, No Hematochezia, No Melena Genitourinary: No Dysuria, No Urinary Frequency, No Hematuria Musculoskeletal: No joint pain, + Myalgias Skin: No Skin Lesions, No rash Neuro: No Weakness, No Numbness, No Dizziness, No Headache Psych: + Anxiety/Panic, + Depression Heme/Lymph: No Bruising, No Lymphadenopathy Endocrine: No Polyuria, No Polydipsia Physical Exam Vital Signs: Vital Signs: Last Vital Signs Temp 98.5 F 06/09/21 18:18 Pulse 89 06/09/21 18:18 Resp 16 06/09/21 18:18 BP 115/60 06/09/21 18:18 Pulse Ox 94 06/09/21 18:18 Body Mass Index 37.4 Appearance: Alert. Oriented X3. Crying and appears to be in pain Eyes: Pupils equal, round and reactive to light. ENT: Pharynx normal. Neck: Normal inspection. Neck supple. CVS: Normal heart rate and rhythm. Pulses normal. Respiratory: No respiratory distress. Breath sounds normal. Abdomen: Obese, distended, soft with diffuse tenderness and guarding, LLQ with puncture site and skin tear from tegaderm dressing, exquisite tenderness to LLQ. Positive fluid wave. normal +BS x4. Pitting edema to the bilateral flanks Skin: Skin warm and dry. Normal skin color. Normal skin turgor. No rashes. Extremities: 3+ lower extremity edema. Neuro: Oriented X 3. No motor deficit. No sensory deficit. Course Course Course Narrative: 55-year-old female with history of cirrhosis most likely ARGUELLO with recurrent ascites requiring multiple paracenteses in the last 2 months, most recent was yesterday at [facility]. She presents with severe left lower quadrant pain at the site of the paracentesis. She has a small skin tear from the Tegaderm with exquisite tenderness on examination. She is tearful and crying. Will attempt to get [facility] records and see if they sent her ascites for Gram stain and culture. Her abdomen is distended and tender, no fever or chills to suggest spontaneous bacterial peritonitis. But given her recent and frequent procedures there is concern for possible peritonitis. Will get basic lab workup, coags, and treat her pain with oxycodone now. Will reassess. Reevaluation(s) Reevaluation #1: [facility] records reviewed-2.6 L of fluid were taken off for comfort. There was 113 wbc's in the ascitic fluid. Her urinalysis was positive for infection with nitrates and leukocyte esterase. She was given a dose of Rocephin and discharged on cefuroxime. Patient continues to be in pain after the oxycodone. She is has significant tenderness to the left lower quadrant. Labs show severe hyperglycemia with a glucose of 532, no anion gap. No evidence of DKA. Subcu insulin has been ordered. Her lactic acid is slightly elevated at 2.5, this is down trended from yesterday's value at [facility] which was in the low 3 range. This is most likely due to her liver failure and not active infection. It has been chronically elevated on multiple visits. Her albumin is also very low 1.8. No role for IV fluids at this time as she will most likely 3rd spacing into her belly. Will give a dose of IV Lasix and IV albumin now. Anticipate she will require admissi on for further management. IV Rocephin ordered for her known UTI, this will also cover possible evolving peritonitis. Reevaluation #2: Dr. Simran john came to the bedside to perform a paracentesis, however did not appear that there was enough fluid to tap. He using ultrasound over the left lower quadrant puncture site and was concerned for possible he matoma. He recommended CT scan of the abdomen for evaluation, this has been ordered. Pain slightly improved with IV fentanyl but persists. Will reassess. Reevaluation #3: CT scan of the abdomen showed moderate to large volume ascites, no abdominal wall hematoma. Patient is diuresing well with the Lasix. Plan for admission for further diuresis and management of pain. May need to have IR re- evaluate for paracentesis tomorrow. Patient agreeable for admission. Dr. Alonzo to admit. MDM - Abdominal Pain Lab Data Result diagrams: 06/09/21 13:17 06/09/21 13:17 Labs: Lab Results 06/09/21 06/09/21 06/09/21 Range/Units 13:05 13:17 13:17 WBC 6.4 (4.8-10.8) X10*3/uL RBC 3.22 L (4.20-5.50) X10*6/uL Hgb 10.7 L (12.0-16.0) g/dl Hct 32.3 L (37-47) % MCV 100.3 H (80-98) fL MCH 33.2 H (27.0-33.0) pg MCHC 33.1 (31.0-35.0) g/dl RDW 15.1 (11.0-16.0) % Plt Count 150 L (160-400) X10*3/uL MPV 9.9 (9.4-12.3) fL Immature Gran % (Auto) 0.2 (0.0-0.4) % Neut % (Auto) 78.5 H (45-73) % Lymph % (Auto) 15.1 L (20-40) % Lamar % (Auto) 5.6 (2-11) % Eos % (Auto) 0.0 (0-4) % Baso % (Auto) 0.6 (0-2) % Lymph # (Auto) 1.0 L (1.2-4.9) X10*3/uL Lamar # (Auto) 0.4 (0.1-1.2) X10*3/uL Eos # (Auto) 0.0 (0.0-0.4) X10*3/uL Baso # (Auto) 0.0 (0.0-0.2) X10*3/uL Abs Immat Gran (auto) 0.01 (0.00-0.03) X10*3/uL Absolute Neuts (auto) 5.0 (2.0-8.3) X10*3/uL Absolute Nucleated RBC 0.000 (0.0-0.012) X10*3/uL Nucleated RBC % (auto) 0.0 (0.0-0.2) /100WBC PT (9.9-13.0) SEC INR (0.9-1.1) APTT (24.1-38.0) SEC Sodium 134 L (135-145) mmol/L Potassium 5.0 D (3.3-5.1) mmol/L Chloride 102 (96-108) mmol/L Carbon Dioxide 26 (22-29) mmol/L Anion Gap 11 L (12-20) BUN 13 (9-16) mg/dL Creatinine 1.04 (0.5-1.4) mg/dL Estim Creat Clear Calc 70.6 Estimated GFR 55 POC Glucose 461 H* (60-115) mg/dL Random Glucose 532 H* (60-115) mg/dL Lactic Acid (0.5-2.0) mmol/L Lactic Acid Fup @ 2Hr (0.5-2.0) mmol/L Lactic Acid Fup @ 4Hr (0.5-2.0) mmol/L Calcium 7.5 L (8.4-10.2) mg/dL Magnesium 1.7 (1.6-2.6) mg/dL Total Bilirubin 1.3 H (0.0-1.0) mg/dL Direct Bilirubin 0.4 (0.0-0.5) mg/dL AST 39 H (5-31) U/L ALT 16 (0-31) U/L Alkaline Phosphatase 100 (39-117) U/L B-Natriuretic Peptide (<100) pg/mL Total Protein 5.8 L (6.5-8.0) g/dL Albumin 1.8 L D (3.5-5.0) g/dL Urine Color Urine Appearance Urine pH (5.0-8.0) Ur Specific [place] (1.005-1.025) Urine Protein (NEG-TRACE) MG/DL Urine Glucose (UA) (NEG) MG/DL Urine Ketones (NEG) MG/DL Urine Blood (NEG) Urine Nitrite (NEG) Ur Leukocyte Esterase (NEG) Urine RBC (0) /HPF Urine WBC (0-4) /HPF Ur Squamous Epith Cells /LPF Urine Bacteria /LPF Urine Yeast /HPF COVID-19 (DAVION) (Negative) COVID-19 Clin Com 06/09/21 06/09/21 06/09/21 Range/Units 13:17 13:17 13:17 WBC (4.8-10.8) X10*3/uL RBC (4.20-5.50) X10*6/uL Hgb (12.0-16.0) g/dl Hct (37-47) % MCV (80-98) fL MCH (27.0-33.0) pg MCHC (31.0-35.0) g/dl RDW (11.0-16.0) % Plt Count (160-400) X10*3/uL MPV (9.4-12.3) fL Immature Gran % (Auto) (0.0-0.4) % Neut % (Auto) (45-73) % Lymph % (Auto) (20-40) % Lamar % (Auto) (2-11) % Eos % (Auto) (0-4) % Baso % (Auto) (0-2) % Lymph # (Auto) (1.2-4.9) X10*3/uL Lamar # (Auto) (0.1-1.2) X10*3/uL Eos # (Auto) (0.0-0.4) X10*3/uL Baso # (Auto) (0.0-0.2) X10*3/uL Abs Immat Gran (auto) (0.00-0.03) X10*3/uL Absolute Neuts (auto) (2.0-8.3) X10*3/uL Absolute Nucleated RBC (0.0-0.012) X10*3/uL Nucleated RBC % (auto) (0.0-0.2) /100WBC PT 15.1 H (9.9-13.0) SEC INR 1.3 H (0.9-1.1) APTT 29.7 (24.1-38.0) SEC Sodium (135-145) mmol/L Potassium (3.3-5.1) mmol/L Chloride (96-108) mmol/L Carbon Dioxide (22-29) mmol/L Anion Gap (12-20) BUN (9-16) mg/dL Creatinine (0.5-1.4) mg/dL Estim Creat Clear Calc Estimated GFR POC Glucose (60-115) mg/dL Random Glucose (60-115) mg/dL Lactic Acid 2.5 H* (0.5-2.0) mmol/L Lactic Acid Fup @ 2Hr (0.5-2.0) mmol/L Lactic Acid Fup @ 4Hr (0.5-2.0) mmol/L Calcium (8.4-10.2) mg/dL Magnesium (1.6-2.6) mg/dL Total Bilirubin (0.0-1.0) mg/dL Direct Bilirubin (0.0-0.5) mg/dL AST (5-31) U/L ALT (0-31) U/L Alkaline Phosphatase (39-117) U/L B-Natriuretic Peptide (<100) pg/mL Total Protein (6.5-8.0) g/dL Albumin (3.5-5.0) g/dL Urine Color Urine Appearance Urine pH (5.0-8.0) Ur Specific [place] (1.005-1.025) Urine Protein (NEG-TRACE) MG/DL Urine Glucose (UA) (NEG) MG/DL Urine Ketones (NEG) MG/DL Urine Blood (NEG) Urine Nitrite (NEG) Ur Leukocyte Esterase (NEG) Urine RBC (0) /HPF Urine WBC (0-4) /HPF Ur Squamous Epith Cells /LPF Urine Bacteria /LPF Urine Yeast /HPF COVID-19 (DAVION) Negative (Negative) COVID-19 Clin Com See Note 06/09/21 06/09/21 06/09/21 Range/Units 13:17 15:13 15:39 WBC (4.8-10.8) X10*3/uL RBC (4.20-5.50) X10*6/uL Hgb (12.0-16.0) g/dl Hct (37-47) % MCV (80-98) fL MCH (27.0-33.0) pg MCHC (31.0-35.0) g/dl RDW (11.0-16.0) % Plt Count (160-400) X10*3/uL MPV (9.4-12.3) fL Immature Gran % (Auto) (0.0-0.4) % Neut % (Auto) (45-73) % Lymph % (Auto) (20-40) % Lamar % (Auto) (2-11) % Eos % (Auto) (0-4) % Baso % (Auto) (0-2) % Lymph # (Auto) (1.2-4.9) X10*3/uL Lamar # (Auto) (0.1-1.2) X10*3/uL Eos # (Auto) (0.0-0.4) X10*3/uL Baso # (Auto) (0.0-0.2) X10*3/uL Abs Immat Gran (auto) (0.00-0.03) X10*3/uL Absolute Neuts (auto) (2.0-8.3) X10*3/uL Absolute Nucleated RBC (0.0-0.012) X10*3/uL Nucleated RBC % (auto) (0.0-0.2) /100WBC PT (9.9-13.0) SEC INR (0.9-1.1) APTT (24.1-38.0) SEC Sodium (135-145) mmol/L Potassium (3.3-5.1) mmol/L Chloride (96-108) mmol/L Carbon Dioxide (22-29) mmol/L Anion Gap (12-20) BUN (9-16) mg/dL Creatinine (0.5-1.4) mg/dL Estim Creat Clear Calc Estimated GFR POC Glucose (60-115) mg/dL Random Glucose (60-115) mg/dL Lactic Acid (0.5-2.0) mmol/L Lactic Acid Fup @ 2Hr 2.8 H* (0.5-2.0) mmol/L Lactic Acid Fup @ 4Hr (0.5-2.0) mmol/L Calcium (8.4-10.2) mg/dL Magnesium (1.6-2.6) mg/dL Total Bilirubin (0.0-1.0) mg/dL Direct Bilirubin (0.0-0.5) mg/dL AST (5-31) U/L ALT (0-31) U/L Alkaline Phosphatase (39-117) U/L B-Natriuretic Peptide 136 H (<100) pg/mL Total Protein (6.5-8.0) g/dL Albumin (3.5-5.0) g/dL Urine Color YELLOW Urine Appearance HAZY Urine pH 6.0 (5.0-8.0) Ur Specific [place] 1.010 (1.005-1.025) Urine Protein NEG (NEG-TRACE) MG/DL Urine Glucose (UA) >=1000 H (NEG) MG/DL Urine Ketones NEG (NEG) MG/DL Urine Blood TRACE (NEG) Urine Nitrite POS H (NEG) Ur Leukocyte Esterase 1+ H (NEG) Urine RBC 1-4 (0) /HPF Urine WBC 1-4 (0-4) /HPF Ur Squamous Epith Cells TRACE /LPF Urine Bacteria 3+ /LPF Urine Yeast 1+ /HPF COVID-19 ([facility]VION) (Negative) COVID-19 Clin Com 06/09/21 06/09/21 Range/Units 18:07 19:39 WBC (4.8-10.8) X10*3/uL RBC (4.20-5.50) X10*6/uL Hgb (12.0-16.0) g/dl Hct (37-47) % MCV (80-98) fL MCH (27.0-33.0) pg MCHC (31.0-35.0) g/dl RDW (11.0-16.0) % Plt Count (160-400) X10*3/uL MPV (9.4-12.3) fL Immature Gran % (Auto) (0.0-0.4) % Neut % (Auto) (45-73) % Lymph % (Auto) (20-40) % Lamar % (Auto) (2-11) % Eos % (Auto) (0-4) % Baso % (Auto) (0-2) % Lymph # (Auto) (1.2-4.9) X10*3/uL [place]ar # (Auto) (0.1-1.2) X10*3/uL Eos # (Auto) (0.0-0.4) X10*3/uL Baso # (Auto) (0.0-0.2) X10*3/uL Abs Immat Gran (auto) (0.00-0.03) X10*3/uL Absolute Neuts (auto) (2.0-8.3) X10*3/uL Absolute Nucleated RBC (0.0-0.012) X10*3/uL Nucleated RBC % (auto) (0.0-0.2) /100WBC PT (9.9-13.0) SEC INR (0.9-1.1) APTT (24.1-38.0) SEC Sodium (135-145) mmol/L Potassium (3.3-5.1) mmol/L Chloride (96-108) mmol/L Carbon Dioxide (22-29) mmol/L Anion Gap (12-20) BUN (9-16) mg/dL Creatinine (0.5-1.4) mg/dL Estim Creat Clear Calc Estimated GFR POC Glucose 367 H* (60-115) mg/dL Random Glucose (60-115) mg/dL Lactic Acid (0.5-2.0) mmol/L Lactic Acid Fup @ 2Hr (0.5-2.0) mmol/L Lactic Acid Fup @ 4Hr 2.6 H* (0.5-2.0) mmol/L Calcium (8.4-10.2) mg/dL Magnesium (1.6-2.6) mg/dL Total Bilirubin (0.0-1.0) mg/dL Direct Bilirubin (0.0-0.5) mg/dL AST (5-31) U/L ALT (0-31) U/L Alkaline Phosphatase (39-117) U/L B-Natriuretic Peptide (<100) pg/mL Total Protein (6.5-8.0) g/dL Albumin (3.5-5.0) g/dL Urine Color Urine Appearance Urine pH (5.0-8.0) Ur Specific [place] (1.005-1.025) Urine Protein (NEG-TRACE) MG/DL Urine Glucose (UA) (NEG) MG/DL Urine Ketones (NEG) MG/DL Urine Blood (NEG) Urine Nitrite (NEG) Ur Leukocyte Esterase (NEG) Urine RBC (0) /HPF Urine WBC (0-4) /HPF Ur Squamous Epith Cells /LPF Urine Bacteria /LPF Urine Yeast /HPF COVID-19 ([facility]ION) (Negative) COVID-19 Clin Com Critical Care Time Critical Care Time Critical Care Time: Yes Total Critical Care Time: 38 Attestation: I have personally provided critical care time exclusive of time spent on separately billable procedures. Time includes review of lab data, radiology results, discussion with consultants, and monitoring for potential decompensation. Intervention performed as documented. Discharge Plan Discharge Clinical Impression: Hyperglycemia Abdominal pain Qualifiers: Abdominal location: unspecified location Qualified Code(s): R10.9 - Unspecified abdominal pain Ascites Qualifiers: Ascites type: other type Qualified Code(s): R18.8 - Other ascites Fluid overload Qualifiers: Hypervolemia type: other Qualified Code(s): E87.79 - Other fluid overload UTI (urinary tract infection) Qualifiers: Urinary tract infection type: acute cystitis Hematuria presence: without hemat uria Qualified Code(s): N30.00 - Acute cystitis without hematuria Patient Disposition: Admitted As Inpatient [facility] Past Medical History Attestation statement: The following information was validated with the patient. Medical History Cirrhosis Diabetes (~01/31/21) HTN (hypertension) Family History Family History Mother No problems noted. Father No problems noted. Social History Social History Alcohol intake: never Patient Tobacco Use Status: Never used Tobacco Advance Directives: No Advance Directives Information Provided: Yes
[2021-06-09 13:22] LABS: Glucose, Whole Blood 461 mg/dL (60-115)
[2021-06-09 13:25] LABS: MANUAL DIFF FLAG NO
[2021-06-09] MEDS: oxyCODONE HCl Immed Release 5 MG TABLET PO ×2 (13:25→22:23)
[2021-06-09] MEDS: Lidocaine 4 % Cream KIT 1 APPL TOPICAL (13:25)
[2021-06-09 13:29] LABS: Basophils Percent Auto 0.6 % (0-2); Hematocrit 32.3 % (37-47); Hemoglobin 10.7 g/dl (12.0-16.0); Imm Gran Abs Auto 0.01 X10*3/uL (0.00-0.03); Imm Gran Pct Auto 0.2 % (0.0-0.4); Lymphocytes Percent Auto 15.1 % (20-40); Mean Corpuscular HGB Conc 33.1 g/dl (31.0-35.0); Mean Corpuscular Hemoglobin 33.2 pg (27.0-33.0); Mean Corpuscular Volume 100.3 fL (80-98); Mean Platelet Volume 9.9 fL (9.4-12.3); Monocytes Absolute Auto 0.4 X10*3/uL (0.1-1.2); Monocytes Percent Auto 5.6 % (2-11); Neutrophils Percent Auto 78.5 % (45-73); Platelet Count 150 X10*3/uL (160-400); Red Blood Count 3.22 X10*6/uL (4.20-5.50); Red Cell Distribution Width 15.1 % (11.0-16.0); White Blood Count 6.4 X10*3/uL (4.8-10.8)
[2021-06-09 13:33] LABS: INTERNATIONAL NORM RATIO 1.3 (0.9-1.1); Prothrombin Time 15.1 SEC (9.9-13.0)
[2021-06-09 13:35] LABS: Partial Thromboplastin Time 29.7 SEC (24.1-38.0)
--- NOTE | 2021-06-09 13:35 | PHA.MEDREC ---
Pharmacy Consult ? Medication Reconciliation Pharmacy has completed the medication reconciliation. Patient reports using insulin. She uses Novolog 30 units TID and Lantus 100 units on Tuesdays (splits into two dose 80 units and 20units). She is no long on Trulicity and mentioned that she was on metformin a long time ago. She is unsure how much cephalexin she has left because she has a nurse come to her home to fill pill stacy. Reports that she uses furosemide and spironolactone daily but still has edema so bad that she cannot walk. She reports that she sometimes takes the ferrous sulfate but often cause too much constipation. Liliam Mitchell, PharmD
[2021-06-09 13:39] LABS: Lactic Acid 2.5 mmol/L (0.5-2.0)
[2021-06-09 13:46] LABS: COVID-19 Test Negative (Negative); IDNOW Serial# 9DD0AD1C
[2021-06-09] MEDS: Insulin Lispro 100 UNIT/ML 3 ML VIAL 15 UNIT SUBCUT (13:57)
[2021-06-09 14:10] LABS: Alanine Aminotransferase 16 U/L (0-31); Albumin Level 1.8 g/dL (3.5-5.0); Alkaline Phosphatase 100 U/L (39-117); Anion Gap 11 (12-20); Aspartate Amino Transferase 39 U/L (5-31); Bilirubin Direct 0.4 mg/dL (0.0-0.5); Bilirubin Total 1.3 mg/dL (0.0-1.0); Blood Urea Nitrogen 13 mg/dL (9-16); Calcium 7.5 mg/dL (8.4-10.2); Carbon Dioxide 26 mmol/L (22-29); Chloride 102 mmol/L (96-108); Creatinine Clr Calc Pharmacy 70.6; Estimated Glomerular Filt Rate 55; Glucose Random 532 mg/dL (60-115); Magnesium 1.7 mg/dL (1.6-2.6); Sodium 134 mmol/L (135-145); Total Protein 5.8 g/dL (6.5-8.0)
[2021-06-09] MEDS: cefTRIAXone sodium 1 GM in 0.9 % Sodium Chloride 50 ML IV (14:31)
[2021-06-09] MEDS: Furosemide 40 MG/4 ML VIAL IVPUSH (14:31)
[2021-06-09 14:52] LABS: B Type Natriuretic Peptide 136 pg/mL (<100)
[2021-06-09] MEDS: Albumin Human 25 % 100 ML IV ×2 (15:14→16:57)
[2021-06-09 15:24] LABS: Reflex Lactate? Lactic Acid Added
[2021-06-09 15:36] LABS: Appearance Urine HAZY; Color Urine YELLOW; Glucose Urine UA >=1000 MG/DL (NEG); Leukocyte Esterase Urine 1+ (NEG); Nitrite Urine POS (NEG); UACC Culture Trigger YES; Urine Blood TRACE (NEG); Urine Ketones NEG (NEG); Urine Protein NEG (NEG-TRACE)
[2021-06-09] MEDS: fentaNYL citrate/PF 100 MCG/2 ML VIAL 50 MCG IVPUSH (15:51)
[2021-06-09 15:52] LABS: Bacteria Urine 3+ /LPF; Squamous Epithelial Cell Urine TRACE /LPF
[2021-06-09 16:04] LABS: ~Lactic Acid-LAB USE ONLY 2.8 mmol/L (0.5-2.0)
[2021-06-09 17:45] LABS: Reflex Lactate? 2 Y
[2021-06-09 18:18] VITALS: BP 115/60; PULSE 89; RESP 16; TEMP 36.9; O2SAT 94
[2021-06-09 18:30] LABS: ~Lactic Acid-LAB USE ONLY 2.6 mmol/L (0.5-2.0)
[2021-06-09 19:45] LABS: Glucose, Whole Blood 367 mg/dL (60-115)
--- NOTE | 2021-06-09 20:03 | P.HPHOSP_ITS ---
History of Present Illness Date of Service: 06/09/21 Chief Complaint: abd pain, distension and leg swellings This is a 55-year-old female past medical history of liver cirrhosis, diabetes, hypertension, who has been receiving paracentesis for recent ascites at [facility] presents the hospital with complaints of severe abdominal pain, as well as lower extremity pain to the point where she is unable to walk. Patient reports that post her most recent paracentesis she developed significant pain at the site of the needle entry. Patient denies having any chest pain, no increased shortness of breath, no orthopnea or PND. She reports that her abdomen has been swelling for the past 1 month and has been receiving paracentesis but has not really reduce the swelling and it has been getting worse. She denies having any fever no chills, no nausea, no vomiting, no diarrhea constipation, she reports urinary frequency with no dysuria or urgency, no numbness tingling or weakness other than the pain in her legs. On arrival to the ED patient hemodynamically stable with no significant abnormal vitals, Labs are significant for WBC count of 6.4, glucose of 500, lactic acid of 2.5, BNP of 136, albumin of 1.8, UA that is positive for nitrites as well as leukocyte Estrace and trace WBC. Abdominal ultrasound shows hepatic cirrhosis with recanalization of the umbilical vein and numerous portal varices present with what appears to be a spontaneous splenorenal shunt, moderate to large volume ascites, no abdominal wall hematoma Interventional Radiology attempted paracentesis but there was small to moderate amount of fluid and therefore paracentesis was not done. Patient will be admitted for further management Review of Systems Review of Systems: Yes all other systems are reviewed and are negative [facility] Medical History Cirrhosis Diabetes (~01/31/21) HTN (hypertension) Family History Mother No problems noted. Father No problems noted. Pertinent family history: No pertinent history Social History Household Members: Children Housing: House Do you presently have visiting nurse or other home services: No Alcohol intake: never Patient Tobacco Use Status: Never used Tobacco Use of substances other than those prescribed or required for medical reasons: No Have you been hit, kicked, punched, or otherwise hurt by someone within the past year? If so, by whom?: No Do you feel safe in your current relationship?: No Current Relationship Is there a partner from a previous relationship who is making you feel unsafe now?: No Advance Directives: No Advance Directives Information Provided: Yes Do you have thoughts of harming others: None Do you have a plan to hurt others: No Plan Recently lost weight without trying: No Nutrition Risks: Anorexia Patient : No : No Poor oral hygiene: No service: No Current occupational status: [employer] Allergies Allergy/AdvReac Type Severity Reaction Status Date / Time No Known Allergies Allergy Verified 09/19/20 09:26 [No Known Allergies*] Active Medications: Current Medications Pharmacy Consult (Consult Rx Perform Med Rec) 1 each MISCELLANE ONCE PRN PRN Reason: Consult order Home Medications Medication Instructions Recorded Confirmed Last Taken Type ferrous sulfate 325 mg (65 mg 325 mg PO DAILY 09/05/20 06/09/21 06/08/21 History iron) tablet furosemide 20 mg tablet 20 mg PO DAILY 09/05/20 06/09/21 06/08/21 History spironolactone 25 mg tablet 25 mg PO DAILY tab 09/05/20 06/09/21 06/08/21 History insulin glargine 100 unit/mL (3 100 unit SUBCUT TU 05/18/21 06/09/21 06/08/21 History mL) subcutaneous pen cephalexin 500 mg capsule 1 cap PO TID 06/09/21 06/09/21 06/08/21 History polyethylene glycol 3350 17 17 g PO DAILY PRN 06/09/21 06/09/21 06/08/21 History gram/dose oral powder (Gavilax) sennosides 8.6 mg-docusate sodium 1 tab PO DAILY 06/09/21 06/09/21 06/08/21 History 50 mg tablet (Senna Plus) Physical Exam Vital Signs and Narrative: Vital Signs: Last Vital Signs Temp 98.5 F 06/09/21 18:18 Pulse 89 06/09/21 18:18 Resp 16 06/09/21 18:18 BP 115/60 06/09/21 18:18 Pulse Ox 94 06/09/21 18:18 Body Mass Index 37.4 Const: General: cooperative and no acute distress Orientation/c onsciousness: patient oriented x3 Eyes: General: appearance normal, both eyes and all related structures Pupils: Equal, round and reactive pupils present Resp: Effort & Inspection: normal respiratory effort Auscultation: clear to auscultation bilaterally Cardio: Rate: regular rate Rhythm: regular rhythm GI: Other: 3+ Distended abdomen, very tender, hard, there is a needle entry point on the left lateral aspect of abdomen, no erythema, , warmth, there is a small blister that shows no acute infection Skin: General skin exam: no rashes or lesions noted Neuro: General: patient oriented x3 Cranial nerves: Yes Equal, round and reactive pupils present Cognition (Neuro): normal cognition Extrem: Other: 3+ pitting edema, significantly painful extremities to palpation General: Yes normal to inspection Results Labs CBC and Chem 7: 06/09/21 13:17 06/09/21 13:17 Labs: Laboratory Results - last 24 hr 06/09/21 06/09/21 06/09/21 13:05 13:17 13:17 MCV 100.3 H MCH 33.2 H MCHC 33.1 RDW 15.1 Plt Count 150 L MPV 9.9 Immature Gran % (Auto) 0.2 Neut % (Auto) 78.5 H Lymph % (Auto) 15.1 L [place] % (Auto) 5.6 Eos % (Auto) 0.0 Baso % (Auto) 0.6 Lymph # (Auto) 1.0 L [place] # (Auto) 0.4 Eos # (Auto) 0.0 Baso # (Auto) 0.0 Abs Immat Gran (auto) 0.01 Absolute Neuts (auto) 5.0 Absolute Nucleated RBC 0.000 Nucleated RBC % (auto) 0.0 PT INR APTT Anion Gap 11 L Estim Creat Clear Calc 70.6 Estimated GFR 55 POC Glucose 461 H* Random Glucose 532 H* Lactic Acid Lactic Acid Fup @ 2Hr Lactic Acid Fup @ 4Hr Calcium 7.5 L Magnesium 1.7 Total Bilirubin 1.3 H Direct Bilirubin 0.4 AST 39 H ALT 16 Alkaline Phosphatase 100 B-Natriuretic Peptide Total Protein 5.8 L Albumin 1.8 L D Urine Color Urine Appearance Urine pH Ur Specific [place] Urine Protein Urine Glucose (UA) Urine Ketones Urine Blood Urine Nitrite Ur Leukocyte Esterase Urine RBC Urine WBC Ur Squamous Epith Cells Urine Bacteria Urine Yeast COVID-19 ([facility]ION) COVID-19 Clin Com 06/09/21 06/09/21 06/09/21 13:17 13:17 13:17 MCV MCH MCHC RDW Plt Count MPV Immature Gran % (Auto) Neut % (Auto) Lymph % (Auto) [place] % (Auto) Eos % (Auto) Baso % (Auto) Lymph # (Auto) [place] # (Auto) Eos # (Auto) Baso # (Auto) Abs Immat Gran (auto) Absolute Neuts (auto) Absolute Nucleated RBC Nucleated RBC % (auto) PT 15.1 H INR 1.3 H APTT 29.7 Anion Gap Estim Creat Clear Calc Estimated GFR POC Glucose Random Glucose Lactic Acid 2.5 H* Lactic Acid Fup @ 2Hr Lactic Acid Fup @ 4Hr Calcium Magnesium Total Bilirubin Direct Bilirubin AST ALT Alkaline Phosphatase B-Natriuretic Peptide Total Protein Albumin Urine Color Urine Appearance Urine pH Ur Specific [place] Urine Protein Urine Glucose (UA) Urine Ketones Urine Blood Urine Nitrite Ur Leukocyte Esterase Urine RBC Urine WBC Ur Squamous Epith Cells Urine Bacteria Urine Yeast COVID-19 ([facility]VION) Negative COVID-19 Clin Com See Note 06/09/21 06/09/21 06/09/21 13:17 15:13 15:39 MCV MCH MCHC RDW Plt Count MPV Immature Gran % (Auto) Neut % (Auto) Lymph % (Auto) [place] % (Auto) Eos % (Auto) Baso % (Auto) Lymph # (Auto) [place] # (Auto) Eos # (Auto) Baso # (Auto) Abs Immat Gran (auto) Absolute Neuts (auto) Absolute Nucleated RBC Nucleated RBC % (auto) PT INR APTT Anion Gap Estim Creat Clear Calc Estimated GFR POC Glucose Random Glucose Lactic Acid Lactic Acid Fup @ 2Hr 2.8 H* Lactic Acid Fup @ 4Hr Calcium Magnesium Total Bilirubin Direct Bilirubin AST ALT Alkaline Phosphatase B-Natriuretic Peptide 136 H Total Protein Albumin Urine Color YELLOW Urine Appearance HAZY Urine pH 6.0 Ur Specific [place] 1.010 Urine Protein NEG Urine Glucose (UA) >=1000 H Urine Ketones NEG Urine Blood TRACE Urine Nitrite POS H Ur Leukocyte Esterase 1+ H Urine RBC 1-4 Urine WBC 1-4 Ur Squamous Epith Cells TRACE Urine Bacteria 3+ Urine Yeast 1+ COVID-19 ([facility]ION) COVID-19 Clin Com 06/09/21 06/09/21 18:07 19:39 MCV MCH MCHC RDW Plt Count MPV Immature Gran % (Auto) Neut % (Auto) Lymph % (Auto) [place] % (Auto) Eos % (Auto) Baso % (Auto) Lymph # (Auto) [place] # (Auto) Eos # (Auto) Baso # (Auto) Abs Immat Gran (auto) Absolute Neuts (auto) Absolute Nucleated RBC Nucleated RBC % (auto) PT INR APTT Anion Gap Estim Creat Clear Calc Estimated GFR POC Glucose 367 H* Random Glucose Lactic Acid Lactic Acid Fup @ 2Hr Lactic Acid Fup @ 4Hr 2.6 H* Calcium Magnesium Total Bilirubin Direct Bilirubin AST ALT Alkaline Phosphatase B-Natriuretic Peptide Total Protein Albumin Urine Color Urine Appearance Urine pH Ur Specific [place] Urine Protein Urine Glucose (UA) Urine Ketones Urine Blood Urine Nitrite Ur Leukocyte Esterase Urine RBC Urine WBC Ur Squamous Epith Cells Urine Bacteria Urine Yeast COVID-19 ([facility]VION) COVID-19 Clin Com Imaging Radiologist's Impressions: Impressions Chest X-Ray 06/09/21 14:20 IMPRESSION: No significant acute parenchymal disease. Paracentesis Ultrasound 06/09/21 15:38 IMPRESSION: Small to moderate amount of fluid. Paracentesis was not performed. Patient has pain in left lower quadrant where ultrasound guided paracentesis was performed yesterday. In this region there is a very echogenic and enlarged abdominal wall suspicious for hematoma. Consider CT abdomen without contrast. Results were discussed with Sury Chiu at 4:00 PM Abdomen/Pelvis CT 06/09/21 16:04 IMPRESSION: Hepatic cirrhosis with recanalization of the umbilical vein and numerous portal varices present with what appears to be a spontaneous splenorenal shunt. Cholelithiasis without evidence of acute cholecystitis. Moderate to large volume ascites. No abdominal wall hematoma appreciated. Right pelvic dermoid tumor. Assessment and Plan (1) Abdominal pain: Qualifiers: Abdominal location: unspecified location Qualified Code(s): R10.9 - Unspecified abdominal pain Status: Acute (2) Ascites: Qualifiers: Ascites type: other type Qualified Code(s): R18.8 - Other ascites Status: Acute (3) Fluid overload: Qualifiers: Hypervolemia type: other Qualified Code(s): E87.79 - Other fluid overload Status: Acute (4) UTI (urinary tract infection): Qualifiers: Hematuria presence: without hematuria Urinary tract infection type: acute cystitis Qualified Code(s): N30.00 - Acute cystitis without hematuria Status: Acute (5) Hyperglycemia: Status: Acute This is a 55-year-old female with past medical history of cirrhosis who presents to the hospital with complaints of abdominal pain found to have moderat e to large amount of ascites as well as lower extremity pain , also found to have UTI # abdominal pain - most likely secondary to moderate to large amount of ascites as seen on CT scan - no evidence of hematoma CT abdomen - no evidence of SBP, patient afebrile, has no leukocytosis - will consult Gastroenterology as well as interventional radiology for has 2nd attempt at paracentesis - pain control # ascites - secondary to cirrhosis- patient is not sure of the etiology of her cirrhosis - will consult Interventional Radiology to re-attempt paracentesis - pain control # UTI - urinary frequency - positive UA - start IV antibiotics - follow cultures # lower extremity pain - most likely secondary to significant edema - pain is bilateral - will obtain venous Doppler is to rule out DVT # hyperglycemia - secondary to her diabetes - continue home insulin - will add low-dose sliding scale insulin - diabetic diet DVT prophylaxis: Heparin subQ Quality Stroke Does the patient have a stroke diagnosis?: No VTE Prior VTE?: No VTE Risk Level:: Medical - moderate - high VTE Device Contraindication: Treatment Not Indicated VTE Drug Contraindication: N/A - Med Ordered
[2021-06-09] MEDS: Insulin Lispro 100 UNIT/ML 3 ML VIAL 12 UNIT SUBCUT (20:11)
[2021-06-09 20:47] VITALS: BP 98/65; PULSE 93; RESP 18; TEMP 36.9; O2SAT 93
--- NOTE | 2021-06-09 21:53 | MHC.CM.PN ---
CM met with admitted patient with bed assignment pending. IMM reviewed and signed per protocol 06/09/2021@2130. HCP on file. HCP/daughter Sabine Amaya, no contact information. Pt does not remember her telephone number. Alternate HCP/sister Mariusz Suresh ([phone]). PCP is Dr. Stinson. Pt is fully vaccinated with Pfizer. Son lives with patient. Pt has help from her daughter. States she would like her daughter to be her COMPUTER SYSTEM TECHNICIAN. Explained that patient needs to call her managed care specialist at [facility] to make those arrangements. Pt uses a cane and a walker. D/C plan is home with [facility] services. Transportation by family. CM to follow for d/c needs.
[2021-06-09 23:09] VITALS: BP 110/65; PULSE 90; RESP 18; TEMP 36.6; O2SAT 98
[2021-06-09 23:42] VITALS: BP 97/55; PULSE 87; RESP 18; TEMP 36.8; O2SAT 97
[2021-06-10] VITALS (12 sets, daily range): BP systolic 100–120; BP diastolic 59–75; PULSE 68–94; RESP 12–20; TEMP 36.5–37.2; O2SAT 92–98
[2021-06-10 00:31] LABS: Glucose, Whole Blood 288 mg/dL (60-115)
[2021-06-10] MEDS: Spironolactone 25 MG TABLET 100 MG PO ×2 (00:46→13:16)
[2021-06-10] MEDS: carvediloL 3.125 MG TABLET PO ×2 (00:54→22:53)
[2021-06-10] MEDS: Insulin Lispro 100 UNIT/ML 3 ML VIAL SUBCUT ×5 (00:54→22:52)
[2021-06-10 02:49] LABS: Glucose, Whole Blood 350 mg/dL (60-115)
[2021-06-10] MEDS: Morphine Sulfate 4 MG/ML CARTRIDGE IVPUSH (06:52)
[2021-06-10 07:23] LABS: MANUAL DIFF FLAG NO
[2021-06-10 07:26] LABS: Glucose, Whole Blood 357 mg/dL (60-115)
[2021-06-10 07:35] LABS: Basophils Percent Auto 0.6 % (0-2); Hematocrit 28.3 % (37-47); Hemoglobin 9.4 g/dl (12.0-16.0); Imm Gran Abs Auto 0.02 X10*3/uL (0.00-0.03); Imm Gran Pct Auto 0.4 % (0.0-0.4); Lymphocytes Absolute Auto 0.9 X10*3/uL (1.2-4.9); Lymphocytes Percent Auto 18.9 % (20-40); Mean Corpuscular HGB Conc 33.2 g/dl (31.0-35.0); Mean Corpuscular Hemoglobin 33.1 pg (27.0-33.0); Mean Corpuscular Volume 99.6 fL (80-98); Mean Platelet Volume 10.1 fL (9.4-12.3); Monocytes Absolute Auto 0.4 X10*3/uL (0.1-1.2); Monocytes Percent Auto 7.2 % (2-11); Neutrophils Absolute Auto 3.6 X10*3/uL (2.0-8.3); Neutrophils Percent Auto 72.9 % (45-73); Platelet Count 122 X10*3/uL (160-400); Red Blood Count 2.84 X10*6/uL (4.20-5.50); Red Cell Distribution Width 14.9 % (11.0-16.0); White Blood Count 4.9 X10*3/uL (4.8-10.8)
[2021-06-10 08:06] LABS: Anion Gap 10 (12-20); Blood Urea Nitrogen 15 mg/dL (9-16); Calcium 7.4 mg/dL (8.4-10.2); Carbon Dioxide 29 mmol/L (22-29); Chloride 98 mmol/L (96-108); Creatinine Clr Calc Pharmacy 88.5; Estimated Glomerular Filt Rate > 60; Glucose Random 372 mg/dL (60-115); Potassium 3.8 mmol/L (3.3-5.1); Sodium 133 mmol/L (135-145)
[2021-06-10] MEDS: HYDROmorphone HCl 1 MG/ML SYRINGE IVPUSH (09:27)
[2021-06-10 11:15] LABS: Glucose, Whole Blood 299 mg/dL (60-115)
[2021-06-10] MEDS: Furosemide 40 MG/4 ML VIAL IVPUSH ×2 (13:16→18:23)
--- NOTE | 2021-06-10 13:46 | P.PNIM_ITS ---
Subjective Subjective Date of Service: 06/10/21 Physical Exam Vital Signs: Vital Signs: Last Vital Signs Temp 98.1 F 06/10/21 12:00 Pulse 80 06/10/21 13:16 Resp 12 06/10/21 12:00 BP 106/59 L 06/10/21 13:16 Pulse Ox 95 06/10/21 12:00 Body Mass Index 37.4 Objective Data Active Medications Acetaminophen (Acetaminophen 325 Mg Tablet) 650 mg PO Q6H PRN PRN Reason: Pain, Mild (Pain Scale 1-3) Carvedilol (Carvedilol 3.125 Mg Tablet) 3.125 mg PO BID [facility]; Protocol Last Admin: 06/10/21 10:58 Dose: Not Given Documented by: OMKAR Non-Admin Reason: Physician Held Med Dextrose (Dextrose 50 % 25 Gm/50 Ml Vial) 25 gm IVPUSH Q15M PRN; Protocol PRN Reason: per Hypoglycemia Standing Ord. Docusate Sodium (Docusate Sodium 100 Mg Capsule) 100 mg PO DAILY PRN PRN Reason: Constipation Ferrous Sulfate (Ferrous Sulfate 324 Mg Tablet.Dr) 324 mg PO DAILY [facility] Last Admin: 06/10/21 11:17 Dose: Not Given Documented by: FAUSTO Non-Admin Reason: Patient Refused Furosemide (Furosemide 40 Mg/4 Ml Vial) 40 mg IVPUSH BID@0900,1800 [facility]; Protocol Last Admin: 06/10/21 13:16 Dose: 40 mg Documented by: OMKAR Glucose (Glucose Gel 15 Gm Gel..Gram.) 15 gm PO Q15M PRN; Protocol PRN Reason: per Hypoglycemia Standing Ord. Hydromorphone HCl (Hydromorphone Hcl 1 Mg/Ml Syringe) 1 mg IVPUSH Q4H PRN; Protocol PRN Reason: Pain, Severe (Pain Scale 7-10) Last Admin: 06/10/21 09:27 Dose: 1 mg Documented by: OMKAR Insulin Glargine (Insulin Glargine,Hum.Rec.Anlog 100 Unit/Ml 10 Ml Vial) 100 unit SUBCUT [facility] Insulin Human Lispro (Insulin Lispro 100 Unit/Ml 3 Ml Vial) 0 unit SUBCUT QIDACHS [facility]; Protocol Last Admin: 06/10/21 12:25 Dose: 6 unit Documented by: FAUSTO Ondansetron HCl (Ondansetron Hcl 4 Mg/2 Ml Vial) 4 mg IVPUSH Q8H PRN PRN Reason: Nausea and Vomiting Oxycodone HCl (Oxycodone Hcl Immed Release 5 Mg Tablet) 5 mg PO Q6H PRN PRN Reason: Pain, Moderate (Pain Scale 4-6 Last Admin: 06/09/21 22:23 Dose: 5 mg Documented by: AVE Pharmacy Consult (Consult Rx Perform Med Rec) 1 each MISCELLANE ONCE PRN PRN Reason: Consult order Polyethylene Glycol (Polyethylene Glycol 3350 17 Gm Powd.Pack) 17 gm PO DAILY PRN PRN Reason: Constipation Senna/Docusate Sodium (Sennosides/Docusate Sodium Tablet) 1 tab PO DAILY [facility] Last Admin: 06/10/21 11:18 Dose: Not Given Documented by: FAUSTO Non-Admin Reason: Patient Refused Spironolactone (Spironolactone 25 Mg Tablet) 100 mg PO DAILY [facility]; Protocol Last Admin: 06/10/21 13:16 Dose: 100 mg Documented by: OMKAR Labs CBC & Chem 7: 06/10/21 06:47 06/10/21 06:47 Labs: Laboratory Results - last 24 hr 06/09/21 06/09/21 06/09/21 13:17 13:17 13:17 MCV MCH MCHC RDW Plt Count MPV Immature Gran % (Auto) Neut % (Auto) Lymph % (Auto) Hood % (Auto) Eos % (Auto) Baso % (Auto) Lymph # (Auto) Hood # (Auto) Eos # (Auto) Baso # (Auto) Abs Immat Gran (auto) Absolute Neuts (auto) Absolute Nucleated RBC Nucleated RBC % (auto) Anion Gap 11 L Estim Creat Clear Calc 70.6 Estimated GFR 55 POC Glucose Random Glucose 532 H* Lactic Acid Fup @ 2Hr Lactic Acid Fup @ 4Hr Calcium 7.5 L Magnesium 1.7 Total Bilirubin 1.3 H Direct Bilirubin 0.4 AST 39 H ALT 16 Alkaline Phosphatase 100 B-Natriuretic Peptide 136 H Total Protein 5.8 L Albumin 1.8 L D Urine Color Urine Appearance Urine pH Ur Specific [place] Urine Protein Urine Glucose (UA) Urine Ketones Urine Blood Urine Nitrite Ur Leukocyte Esterase Urine RBC Urine WBC Ur Squamous Epith Cells Urine Bacteria Urine Yeast COVID-19 (DAVION) Negative COVID-19 SafetyCulture See Note 06/09/21 06/09/21 06/09/21 15:13 15:39 18:07 MCV MCH MCHC RDW Plt Count MPV Immature Gran % (Auto) Neut % (Auto) Lymph % (Auto) Hood % (Auto) Eos % (Auto) Baso % (Auto) Lymph # (Auto) Hood # (Auto) Eos # (Auto) Baso # (Auto) Abs Immat Gran (auto) Absolute Neuts (auto) Absolute Nucleated RBC Nucleated RBC % (auto) Anion Gap Estim Creat Clear Calc Estimated GFR POC Glucose Random Glucose Lactic Acid Fup @ 2Hr 2.8 H* Lactic Acid Fup @ 4Hr 2.6 H* Calcium Magnesium Total Bilirubin Direct Bilirubin AST ALT Alkaline Phosphatase B-Natriuretic Peptide Total Protein Albumin Urine Color YELLOW Urine Appearance HAZY Urine pH 6.0 Ur Specific [place] 1.010 Urine Protein NEG Urine Glucose (UA) >=1000 H Urine Ketones NEG Urine Blood TRACE Urine Nitrite POS H Ur Leukocyte Esterase 1+ H Urine RBC 1-4 Urine WBC 1-4 Ur Squamous Epith Cells TRACE Urine Bacteria 3+ Urine Yeast 1+ COVID-19 (DAVION) [employer] 06/09/21 06/10/21 06/10/21 19:39 00:26 02:43 MCV MCH MCHC RDW Plt Count MPV Immature Gran % (Auto) Neut % (Auto) Lymph % (Auto) Hood % (Auto) Eos % (Auto) Baso % (Auto) Lymph # (Auto) Hood # (Auto) Eos # (Auto) Baso # (Auto) Abs Immat Gran (auto) Absolute Neuts (auto) Absolute Nucleated RBC Nucleated RBC % (auto) Anion Gap Estim Creat Clear Calc Estimated GFR POC Glucose 367 H* 288 H 350 H* Random Glucose Lactic Acid Fup @ 2Hr Lactic Acid Fup @ 4Hr Calcium Magnesium Total Bilirubin Direct Bilirubin AST ALT Alkaline Phosphatase B-Natriuretic Peptide Total Protein Albumin Urine Color Urine Appearance Urine pH Ur Specific [place] Urine Protein Urine Glucose (UA) Urine Ketones Urine Blood Urine Nitrite Ur Leukocyte Esterase Urine RBC Urine WBC Ur Squamous Epith Cells Urine Bacteria Urine Yeast COVID-19 (DAVION) [employer] 06/10/21 06/10/21 06/10/21 06:47 06:47 07:20 MCV 99.6 H MCH 33.1 H MCHC 33.2 RDW 14.9 Plt Count 122 L MPV 10.1 Immature Gran % (Auto) 0.4 Neut % (Auto) 72.9 Lymph % (Auto) 18.9 L Hood % (Auto) 7.2 Eos % (Auto) 0.0 Baso % (Auto) 0.6 Lymph # (Auto) 0.9 L Hood # (Auto) 0.4 Eos # (Auto) 0.0 Baso # (Auto) 0.0 Abs Immat Gran (auto) 0.02 Absolute Neuts (auto) 3.6 Absolute Nucleated RBC 0.000 Nucleated RBC % (auto) 0.0 Anion Gap 10 L Estim Creat Clear Calc 88.5 Estimated GFR > 60 POC Glucose 357 H* Random Glucose 372 H* Lactic Acid Fup @ 2Hr Lactic Acid Fup @ 4Hr Calcium 7.4 L Magnesium Total Bilirubin Direct Bilirubin AST ALT Alkaline Phosphatase B-Natriuretic Peptide Total Protein Albumin Urine Color Urine Appearance Urine pH Ur Specific [place] Urine Protein Urine Glucose (UA) Urine Ketones Urine Blood Urine Nitrite Ur Leukocyte Esterase Urine RBC Urine WBC Ur Squamous Epith Cells Urine Bacteria Urine Yeast COVID-19 (DAVION) [employer] 06/10/21 11:11 MCV MCH MCHC RDW Plt Count MPV Immature Gran % (Auto) Neut % (Auto) Lymph % (Auto) Hood % (Auto) Eos % (Auto) Baso % (Auto) Lymph # (Auto) Hood # (Auto) Eos # (Auto) Baso # (Auto) Abs Immat Gran (auto) Absolute Neuts (auto) Absolute Nucleated RBC Nucleated RBC % (auto) Anion Gap Estim Creat Clear Calc Estimated GFR POC Glucose 299 H Random Glucose Lactic Acid Fup @ 2Hr Lactic Acid Fup @ 4Hr Calcium Magnesium Total Bilirubin Direct Bilirubin AST ALT Alkaline Phosphatase B-Natriuretic Peptide Total Protein Albumin Urine Color Urine Appearance Urine pH Ur Specific [place] Urine Protein Urine Glucose (UA) Urine Ketones Urine Blood Urine Nitrite Ur Leukocyte Esterase Urine RBC Urine WBC Ur Squamous Epith Cells Urine Bacteria Urine Yeast COVID-19 (DAVION) [employer] Microbiology Microbiology Results: Microbiology 06/09/21 15:13 Urine Culture - Preliminary Urine clean catch - Urine henderson top Culture too young to evaluate. Assessment and Plan (1) Ascites: Status: Acute (2) Fluid overload: Status: Acute (3) UTI (urinary tract infection): Status: Acute Assessment and Plan: This is a 55-year-old female past medical history of liver cirrhosis, diabetes, hypertension, who has been receiving paracentesis for recent ascites at [facility] presents the hospital with complaints of severe abdominal pain, as well as lower extremity pain to the point where she is unable to walk.? Patient reports that post her most recent paracentesis she developed significant pain at the site of the needle entry ER course: Labs are significant for WBC count of 6.4, glucose of 500, lactic acid of 2.5, BNP of 136, albumin of 1.8, UA that is positive for nitrites as well as leukocyte Estrace and trace WBC. Abdominal ultrasound shows hepatic cirrhosis with recanalization of the umbilical vein and numerous portal varices present with what appears to be a spontaneous splenorenal shunt, moderate to large volume ascites, no abdominal wall hematoma. IR attempted paracentesis however patient too uncomfortable to comply. Admit to the floor overnight. This is a 55-year-old female with past medical history of cirrhosis who pres ents to the hospital with complaints of abdominal pain found to have moderate to large amount of ascites as well as lower extremity pain , also found to have UTI 1.Abdominal pain Most likely secondary to moderate to large amount of ascites as seen on CT scan; no evidence of hematoma CT abdomen Unable to do paracentesis secondary to increased pain. Patient medicated more comfortable. Per IR will attempt a 10 01/05/2021 2.Ascites As per our will drain Saturday. 3.UTI Antibiotics, awaiting culture 4.DMII: Continue home dosing with sliding scale Quality Stroke Does the patient have a stroke diagnosis?: No VTE Prior VTE?: No VTE Risk Level:: Medical - moderate - high VTE Device Contraindication: Treatment Not Indicated VTE Drug Contraindication: N/A - Med Ordered
[2021-06-10 16:03] LABS: Glucose, Whole Blood 304 mg/dL (60-115)
[2021-06-10] MEDS: Fluconazole 150 MG TABLET PO (16:28)
[2021-06-10 20:03] LABS: Glucose, Whole Blood 267 mg/dL (60-115)
--- NOTE | 2021-06-10 22:49 | CONS_ITS ---
DATE OF SERVICE: 06/10/2021 REFERRING PHYSICIAN: Gabriel Alonzo REASON FOR CONSULTATION: Cirrhosis. HISTORY OF PRESENT ILLNESS: The patient is a 55-year-old woman, who was admitted to the hospital yesterday after presenting to the emergency room with complaints of abdominal pain. She has a history of cirrhosis, although denies current alcohol use. She states she has drank alcohol in the past, but has not for several years. She was seen at another hospital and underwent paracentesis with removal of 2.6 L of fluid and no evidence of SBP. She complains of pain in the abdomen and lower extremity swelling. She has not followed up with her primary care provider or her marriage and family social worker. She was evaluated in the emergency department with laboratory studies and imaging, which is reviewed. Ultrasound imaging raised the question of a hematoma at the previous paracentesis site and showed a small amount of fluid. CT scanning of the abdomen and pelvis was subsequently obtained showing a nodular liver consistent with cirrhosis and recanalization of the umbilical vein. No hematoma was noted at the site of the paracentesis. PAST MEDICAL HISTORY: 1. Cirrhosis as above. 2. Diabetes. 3. Hypertension. CURRENT MEDICATIONS: Her current medication list is reviewed in the chart. She is on furosemide and spironolactone as an outpatient. ALLERGIES: THERE ARE NONE REPORTED. FAMILY HISTORY: Her mother had cirrhosis. SOCIAL HISTORY: She denies current tobacco, alcohol, or substance abuse. REVIEW OF SYSTEMS: SKIN: No pruritus. HEENT: Negative. CARDIOPULMONARY: No shortness of breath or chest pain. GASTROINTESTINAL: As above. GENITOURINARY: Negative. NEUROPSYCHIATRIC: Negative. PHYSICAL EXAMINATION: GENERAL: Shows a pleasant female, lying comfortably in bed. VITAL SIGNS: Reviewed in electronic medical record and are stable. SKIN: Anicteric. HEENT: Shows no scleral icterus. NECK: Without lymphadenopathy or thyromegaly. LUNGS: Clear. HEART: Regular rate and rhythm. S1, S2. No murmur. ABDOMEN: Soft without focal masses or tenderness. Bowel sounds are present. No organomegaly is noted. EXTREMITIES: Show edema. LABORATORY DATA: Remarkable for white blood cell count of 4.9, hematocrit 28.3, platelet count 122. INR is 1.3. Chemistries show a total bilirubin of 1.3 and an AST of 39. IMPRESSION: Cirrhosis with ascites. At this point, she appears stable without any evidence of underlying spontaneous bacterial peritonitis based on the laboratory studies done on her ascites fluid earlier at the outside hospital. I would recommend continuing diuretics for a goal of fluid output approximately 500 mL more than fluid intake. Dosing can be adjusted appropriately. She can have repeat paracentesis for comfort if needed. Her cirrhosis appears to be stable without evidence of underlying decompensation other than the ascites. She has no evidence of asterixis and has not had any GI bleeding. She should follow up with her outpatient GI provider, Dr. Cabral, who has seen her in the past. She will need further continued management rather and further evaluation eventually with upper endoscopy to assess for any evidence of esophageal varices. This was discussed with the patient. Thanks for asking me to see her. I will follow her in the hospital with you. MD ODESSA Ludwig/LYNDSEY / [id number]
[2021-06-11] VITALS (10 sets, daily range): BP systolic 84–170; BP diastolic 52–62; PULSE 82–110; RESP 16–20; TEMP 36.6–37.2; O2SAT 96–99
[2021-06-11 07:07] LABS: Glucose, Whole Blood 305 mg/dL (60-115)
[2021-06-11] MEDS: Insulin Lispro 100 UNIT/ML 3 ML VIAL SUBCUT ×4 (08:24→20:30)
[2021-06-11] MEDS: Sennosides/Docusate Sodium TABLET 1 TAB PO (08:25)
[2021-06-11] MEDS: Spironolactone 25 MG TABLET 100 MG PO (08:25)
[2021-06-11] MEDS: Furosemide 40 MG/4 ML VIAL IVPUSH ×2 (08:26→18:31)
[2021-06-11] MEDS: HYDROmorphone HCl 1 MG/ML SYRINGE IVPUSH (10:19)
[2021-06-11 11:21] LABS: Glucose, Whole Blood 311 mg/dL (60-115)
--- NOTE | 2021-06-11 13:35 | P.PNIM_ITS ---
Subjective Subjective Date of Service: 06/11/21 Review of Systems Denies chest pain Denies Shortness of breath Denies N/V/D Complains of left sided flank/abd pain...slightly improved Physical Exam Vital Signs: Vital Signs: Last Vital Signs Temp 98.5 F 06/11/21 12:00 Pulse 91 06/11/21 12:00 Resp 18 06/11/21 12:00 BP 84/61 L 06/11/21 12:00 Pulse Ox 97 06/11/21 12:00 Body Mass Index 37.4 Const: Other: No acute distress Resp: Other: Clear bilaterally...no rales/rhonchi/wheezes Cardio: Other: No S4; Pos S1/S2; No S3 M/R/G GI: Other: Soft/tender to minimal palpation left flank/abd. Positive BS all 4 quadrants Extrem: Other: tense edema bilat Objective Data Active Medications Acetaminophen (Acetaminophen 325 Mg Tablet) 650 mg PO Q6H PRN PRN Reason: Pain, Mild (Pain Scale 1-3) Carvedilol (Carvedilol 3.125 Mg Tablet) 3.125 mg PO BID [facility]; Protocol Last Admin: 06/11/21 10:23 Dose: Not Given Documented by: MARSHALL Non-Admin Reason: Decreased Blood Pressure Dextrose (Dextrose 50 % 25 Gm/50 Ml Vial) 25 gm IVPUSH Q15M PRN; Protocol PRN Reason: per Hypoglycemia Standing Ord. Docusate Sodium (Docusate Sodium 100 Mg Capsule) 100 mg PO DAILY PRN PRN Reason: Constipation Ferrous Sulfate (Ferrous Sulfate 324 Mg Tablet.Dr) 324 mg PO DAILY [facility] Last Admin: 06/11/21 08:25 Dose: Not Given Documented by: MARSHALL Non-Admin Reason: Patient Refused Furosemide (Furosemide 40 Mg/4 Ml Vial) 40 mg IVPUSH BID@0900,1800 [facility]; Protocol Last Admin: 06/11/21 08:26 Dose: 40 mg Documented by: MARSHALL Glucose (Glucose Gel 15 Gm Gel..Gram.) 15 gm PO Q15M PRN; Protocol PRN Reason: per Hypoglycemia Standing Ord. Hydromorphone HCl (Hydromorphone Hcl 1 Mg/Ml Syringe) 1 mg IVPUSH Q4H PRN; Protocol PRN Reason: Pain, Severe (Pain Scale 7-10) Last Admin: 06/11/21 10:19 Dose: 1 mg Documented by: MARSHALL Insulin Glargine (Insulin Glargine,Hum.Rec.Anlog 100 Unit/Ml 10 Ml Vial) 50 unit SUBCUT BEDTIME [facility] Insulin Human Lispro (Insulin Lispro 100 Unit/Ml 3 Ml Vial) 0 unit SUBCUT QIDACHS [facility]; Protocol Last Admin: 06/11/21 11:47 Dose: 8 unit Documented by: MARSHALL Ondansetron HCl (Ondansetron Hcl 4 Mg/2 Ml Vial) 4 mg IVPUSH Q8H PRN PRN Reason: Nausea and Vomiting Oxycodone HCl (Oxycodone Hcl Immed Release 5 Mg Tablet) 5 mg PO Q6H PRN PRN Reason: Pain, Moderate (Pain Scale 4-6 Last Admin: 06/09/21 22:23 Dose: 5 mg Documented by: AVE Pharmacy Consult (Consult Rx Perform Med Rec) 1 each MISCELLANE ONCE PRN PRN Reason: Consult order Polyethylene Glycol (Polyethylene Glycol 3350 17 Gm Powd.Pack) 17 gm PO DAILY PRN PRN Reason: Constipation Senna/Docusate Sodium (Sennosides/Docusate Sodium Tablet) 1 tab PO DAILY [facility] Last Admin: 06/11/21 08:25 Dose: 1 tab Documented by: MARSHALL Spironolactone (Spironolactone 25 Mg Tablet) 100 mg PO DAILY [facility]; Protocol Last Admin: 06/11/21 08:25 Dose: 100 mg Documented by: MARSHALL Labs CBC & Chem 7: 06/10/21 06:47 06/10/21 06:47 Labs: Laboratory Results - last 24 hr 06/10/21 06/10/21 06/11/21 15:59 19:59 07:00 POC Glucose 304 H 267 H 305 H 06/11/21 11:04 POC Glucose 311 H Microbiology Microbiology Results: Microbiology 06/09/21 15:13 Urine Culture - Final Urine clean catch - Urine henderson top 06/09/21 14:25 Blood Culture - Preliminary Blood - Venous No growth after 24 hours. 06/09/21 14:25 Blood Culture - Preliminary Blood - Venous No growth after 24 hours. Assessment and Plan (1) Abdominal pain: Status: Acute (2) Ascites: Status: Acute (3) Diabetes: Status: Acute Assessment and Plan: This is a 55-year-old female with past medical history of cirrhosis who presents to the hospital with complaints of abdominal pain found to have moderate to large amount of ascites as well as lower extremity pain , also found to have UTI. Pain somewhat improved today 1.Abdominal pain Most likely secondary to moderate to large amount of ascites as seen on CT scan along with palpable mass left abd/flank most consistant with Hematoma,. Unable to do paracentesis secondary to increased pain. Per IR will attempt a 10 01/05/2021 2.Ascites As per our will drain Saturday. 3.UTI Symptomatic. >100k multiple colonies. Empirical CTX 4.DMII: Continue home dosing with sliding scale Quality Stroke Does the patient have a stroke diagnosis?: No VTE Prior VTE?: No VTE Risk Level:: Medical - moderate - high VTE Device Contraindication: Treatment Not Indicated VTE Drug Contraindication: N/A - Med Ordered
[2021-06-11] MEDS: cefTRIAXone sodium 1 GM in 0.9 % Sodium Chloride 50 ML IV (15:42)
[2021-06-11 16:26] LABS: Glucose, Whole Blood 374 mg/dL (60-115)
[2021-06-11 19:57] LABS: Glucose, Whole Blood 293 mg/dL (60-115)
[2021-06-11] MEDS: carvediloL 3.125 MG TABLET PO (20:30)
[2021-06-12] VITALS (17 sets, daily range): BP systolic 104–120; BP diastolic 52–69; PULSE 82–93; RESP 12–18; TEMP 36.5–37.3; O2SAT 93–99
[2021-06-12 06:53] LABS: MANUAL DIFF FLAG NO
[2021-06-12 07:05] LABS: Basophils Percent Auto 0.5 % (0-2); Hematocrit 28.2 % (37-47); Hemoglobin 9.4 g/dl (12.0-16.0); INTERNATIONAL NORM RATIO 1.4 (0.9-1.1); Imm Gran Abs Auto 0.01 X10*3/uL (0.00-0.03); Imm Gran Pct Auto 0.2 % (0.0-0.4); Lymphocytes Absolute Auto 0.9 X10*3/uL (1.2-4.9); Lymphocytes Percent Auto 21.2 % (20-40); Mean Corpuscular HGB Conc 33.3 g/dl (31.0-35.0); Mean Corpuscular Hemoglobin 33.1 pg (27.0-33.0); Mean Corpuscular Volume 99.3 fL (80-98); Mean Platelet Volume 9.8 fL (9.4-12.3); Monocytes Absolute Auto 0.4 X10*3/uL (0.1-1.2); Monocytes Percent Auto 9.5 % (2-11); Neutrophils Absolute Auto 3.1 X10*3/uL (2.0-8.3); Neutrophils Percent Auto 68.6 % (45-73); Platelet Count 107 X10*3/uL (160-400); Prothrombin Time 16.2 SEC (9.9-13.0); Red Blood Count 2.84 X10*6/uL (4.20-5.50); Red Cell Distribution Width 14.9 % (11.0-16.0); White Blood Count 4.4 X10*3/uL (4.8-10.8)
[2021-06-12 07:23] LABS: Glucose, Whole Blood 259 mg/dL (60-115)
[2021-06-12 07:44] LABS: Alanine Aminotransferase 13 U/L (0-31); Albumin Level 1.9 g/dL (3.5-5.0); Alkaline Phosphatase 80 U/L (39-117); Anion Gap 9 (12-20); Aspartate Amino Transferase 22 U/L (5-31); Blood Urea Nitrogen 11 mg/dL (9-16); Calcium 7.4 mg/dL (8.4-10.2); Carbon Dioxide 32 mmol/L (22-29); Chloride 99 mmol/L (96-108); Creatinine Clr Calc Pharmacy 95.4; Estimated Glomerular Filt Rate > 60; Glucose Fasting 303 mg/dL (60-99); Potassium 3.5 mmol/L (3.3-5.1); Sodium 136 mmol/L (135-145); Total Protein 4.7 g/dL (6.5-8.0)
[2021-06-12] MEDS: Furosemide 40 MG/4 ML VIAL IVPUSH ×2 (08:57→17:36)
[2021-06-12] MEDS: Insulin Lispro 100 UNIT/ML 3 ML VIAL SUBCUT ×4 (08:57→21:56)
[2021-06-12] MEDS: HYDROmorphone HCl 1 MG/ML SYRINGE IVPUSH ×2 (09:00→19:36)
[2021-06-12 11:44] LABS: Glucose, Whole Blood 256 mg/dL (60-115)
[2021-06-12] MEDS: oxyCODONE HCl Immed Release 5 MG TABLET PO (12:35)
--- NOTE | 2021-06-12 12:35 | HO.PM.IMPN ---
Subjective Subjective Date of Service: 06/12/21 Interval History: Somewhat improved overall. Awaiting abdominal paracentesis today Review of Systems Denies chest pain Denies Shortness of breath Denies N/V/D Complains of left sided flank/abd pain...slightly improved Physical Exam Vital Signs: Vital Signs: Last Vital Signs Temp 97.7 F 06/12/21 11:19 Pulse 88 06/12/21 11:19 Resp 18 06/12/21 11:19 BP 118/69 06/12/21 11:19 Pulse Ox 96 06/12/21 11:19 Body Mass Index 37.4 Const: Other: No acute distress; pain control improved Resp: Other: Clear bilaterally...no rales/rhonchi/wheezes Cardio: Other: No S4; Pos S1/S2; No S3 M/R/G GI: Other: Soft/tender to minimal palpation left flank/abd. Positive BS all 4 quadrants. Left flank hematoma decreased the size Neuro: Other: Cranial nerves 2-12 grossly intact as tested. Motor is 5/5 all extremity sensation intact cognition is appropriate Extrem: Other: One to 2+ edema bilaterally (improved) Objective Data Active Medications Acetaminophen (Acetaminophen 325 Mg Tablet) 650 mg PO Q6H PRN PRN Reason: Pain, Mild (Pain Scale 1-3) Carvedilol (Carvedilol 3.125 Mg Tablet) 3.125 mg PO BID [facility]; Protocol Last Admin: 06/11/21 20:30 Dose: 3.125 mg Documented by: IROS Dextrose (Dextrose 50 % 25 Gm/50 Ml Vial) 25 gm IVPUSH Q15M PRN; Protocol PRN Reason: per Hypoglycemia Standing Ord. Docusate Sodium (Docusate Sodium 100 Mg Capsule) 100 mg PO DAILY PRN PRN Reason: Constipation Ferrous Sulfate (Ferrous Sulfate 324 Mg Tablet.Dr) 324 mg PO DAILY [facility] Last Admin: 06/11/21 08:25 Dose: Not Given Documented by: MARSHALL Non-Admin Reason: Patient Refused Furosemide (Furosemide 40 Mg/4 Ml Vial) 40 mg IVPUSH BID@0900,1800 [facility]; Protocol Last Admin: 06/12/21 08:57 Dose: 40 mg Documented by: VLAD Glucose (Glucose Gel 15 Gm Gel..Gram.) 15 gm PO Q15M PRN; Protocol PRN Reason: per Hypoglycemia Standing Ord. Hydromorphone HCl (Hydromorphone Hcl 1 Mg/Ml Syringe) 1 mg IVPUSH Q4H PRN; Protocol PRN Reason: Pain, Severe (Pain Scale 7-10) Last Admin: 06/12/21 09:00 Dose: 1 mg Documented by: VLAD Ceftriaxone Sodium 1 gm/ (Sodium Chloride) 50 mls @ 100 mls/hr IV Q24H [facility] Last Infusion: 06/11/21 16:27 Dose: 0 mls/hr Documented by: RIOS Insulin Glargine (Insulin Glargine,Hum.Rec.Anlog 100 Unit/Ml 10 Ml Vial) 50 unit SUBCUT BEDTIME [facility] Insulin Human Lispro (Insulin Lispro 100 Unit/Ml 3 Ml Vial) 0 unit SUBCUT QIDACHS [facility]; Protocol Last Admin: 06/12/21 08:57 Dose: 6 unit Documented by: VLAD Ondansetron HCl (Ondansetron Hcl 4 Mg/2 Ml Vial) 4 mg IVPUSH Q8H PRN PRN Reason: Nausea and Vomiting Oxycodone HCl (Oxycodone Hcl Immed Release 5 Mg Tablet) 5 mg PO Q6H PRN PRN Reason: Pain, Moderate (Pain Scale 4-6 Last Admin: 06/09/21 22:23 Dose: 5 mg Documented by: AVE Pharmacy Consult (Consult Rx Perform Med Rec) 1 each MISCELLANE ONCE PRN PRN Reason: Consult order Polyethylene Glycol (Polyethylene Glycol 3350 17 Gm Powd.Pack) 17 gm PO DAILY PRN PRN Reason: Constipation Senna/Docusate Sodium (Sennosides/Docusate Sodium Tablet) 1 tab PO DAILY [facility] Last Admin: 06/11/21 08:25 Dose: 1 tab Documented by: MARSHALL Spironolactone (Spironolactone 25 Mg Tablet) 100 mg PO DAILY [facility]; Protocol Last Admin: 06/11/21 08:25 Dose: 100 mg Documented by: MARSHALL Labs CBC & Chem 7: 06/12/21 06:23 06/12/21 06:23 Labs: Laboratory Results - last 24 hr 06/11/21 06/11/21 06/12/21 16:23 19:53 06:23 MCV 99.3 H MCH 33.1 H MCHC 33.3 RDW 14.9 Plt Count 107 L MPV 9.8 Immature Gran % (Auto) 0.2 Neut % (Auto) 68.6 Lymph % (Auto) 21.2 [place] % (Auto) 9.5 Eos % (Auto) 0.0 Baso % (Auto) 0.5 Lymph # (Auto) 0.9 L [place] # (Auto) 0.4 Eos # (Auto) 0.0 Baso # (Auto) 0.0 Abs Immat Gran (auto) 0.01 Absolute Neuts (auto) 3.1 Absolute Nucleated RBC 0.000 Nucleated RBC % (auto) 0.0 PT INR Anion Gap Estim Creat Clear Calc Estimated GFR POC Glucose 374 H* 293 H Fasting Glucose Calcium Total Bilirubin AST ALT Alkaline Phosphatase Total Protein Albumin 06/12/21 06/12/21 06/12/21 06:23 06:23 07:18 MCV MCH MCHC RDW Plt Count MPV Immature Gran % (Auto) Neut % (Auto) Lymph % (Auto) [place] % (Auto) Eos % (Auto) Baso % (Auto) Lymph # (Auto) [place] # (Auto) Eos # (Auto) Baso # (Auto) Abs Immat Gran (auto) Absolute Neuts (auto) Absolute Nucleated RBC Nucleated RBC % (auto) PT 16.2 H INR 1.4 H Anion Gap 9 L Estim Creat Clear Calc 95.4 Estimated GFR > 60 POC Glucose 259 H Fasting Glucose 303 H Calcium 7.4 L Total Bilirubin 1.0 AST 22 D ALT 13 Alkaline Phosphatase 80 Total Protein 4.7 L Albumin 1.9 L 06/12/21 11:23 MCV MCH MCHC RDW Plt Count MPV Immature Gran % (Auto) Neut % (Auto) Lymph % (Auto) [place] % (Auto) Eos % (Auto) Baso % (Auto) Lymph # (Auto) [place] # (Auto) Eos # (Auto) Baso # (Auto) Abs Immat Gran (auto) Absolute Neuts (auto) Absolute Nucleated RBC Nucleated RBC % (auto) PT INR Anion Gap Estim Creat Clear Calc Estimated GFR POC Glucose 256 H Fasting Glucose Calcium Total Bilirubin AST ALT Alkaline Phosphatase Total Protein Albumin Microbiology Microbiology Results: Microbiology 06/09/21 14:25 Blood Culture - Preliminary Blood - Venous No growth after 48 hours. 06/09/21 14:25 Blood Culture - Preliminary Blood - Venous No growth after 48 hours. 06/09/21 15:13 Urine Culture - Final Urine clean catch - Urine henderson top Assessment and Plan (1) Ascites: Status: Acute (2) Diabetes: Status: Acute Assessment and Plan: This is a 55-year-old female with past medical history of cirrhosis who presents to the hospital with complaints of abdominal pain found to have moderate to large amount of ascites as well as lower extremity pain , also found to have UTI. Pain somewhat improved today; legs improved. 1.Abdominal pain Improved with therapies. Ultrasound paracentesis schedule today by IR; follow-up response to therapies 2.Ascites Ultrasound today. 3.UTI Symptomatic. >100k multiple colonies. Empirical CTX 4.DMII: Continue home dosing with sliding scale Quality Stroke Does the patient have a stroke diagnosis?: No VTE Prior VTE?: No VTE Risk Level:: Medical - moderate - high VTE Device Contraindication: Treatment Not Indicated VTE Drug Contraindication: N/A - Med Ordered
[2021-06-12] MEDS: Spironolactone 25 MG TABLET 100 MG PO (13:55)
[2021-06-12] MEDS: carvediloL 3.125 MG TABLET PO (13:56)
[2021-06-12] MEDS: Ferrous Sulfate 324 MG TABLET.DR PO (13:56)
--- NOTE | 2021-06-12 15:06 | MHC.CM.PN ---
Female 55 DX Ascities No discharge planned today. Patient is scheduled for tap today. Patient has been accepted @ [facility]. Anticipate discharge tomorrow.
--- NOTE | 2021-06-12 16:57 | HO.RADPN ---
RADIOLOGY Narrative Narrative: RLQ paracentesis performed using 5 fr catheter. 4 L clear yellow fluid removed. No specimen sent.
[2021-06-12] MEDS: Lidocaine HCl 1 % MPF 5 ML VIAL SUBCUT (17:05)
[2021-06-12] MEDS: cefTRIAXone sodium 1 GM in 0.9 % Sodium Chloride 50 ML IV (17:31)
[2021-06-12 17:39] LABS: Glucose, Whole Blood 352 mg/dL (60-115)
[2021-06-12 21:55] LABS: Glucose, Whole Blood 380 mg/dL (60-115)
[2021-06-13 04:00] VITALS: BP 111/58; PULSE 91; RESP 14; TEMP 36.6; O2SAT 92
--- NOTE | 2021-06-13 06:25 | PC.NURSE ---
06/12 @ 2147; POC 380, 10 units of humalog per sliding scale administered. Dr. Pollard notified of elevated poc, no additional orders at this time.
[2021-06-13 06:27] LABS: MANUAL DIFF FLAG NO
[2021-06-13 06:47] LABS: Basophils Percent Auto 0.6 % (0-2); Hemoglobin 9.7 g/dl (12.0-16.0); Imm Gran Abs Auto 0.02 X10*3/uL (0.00-0.03); Imm Gran Pct Auto 0.4 % (0.0-0.4); Lymphocytes Absolute Auto 0.9 X10*3/uL (1.2-4.9); Lymphocytes Percent Auto 19.2 % (20-40); Mean Corpuscular HGB Conc 32.3 g/dl (31.0-35.0); Mean Corpuscular Hemoglobin 32.6 pg (27.0-33.0); Mean Corpuscular Volume 100.7 fL (80-98); Mean Platelet Volume 10.1 fL (9.4-12.3); Monocytes Absolute Auto 0.5 X10*3/uL (0.1-1.2); Monocytes Percent Auto 10.8 % (2-11); Neutrophils Absolute Auto 3.4 X10*3/uL (2.0-8.3); Platelet Count 135 X10*3/uL (160-400); Red Blood Count 2.98 X10*6/uL (4.20-5.50); Red Cell Distribution Width 14.9 % (11.0-16.0); White Blood Count 4.9 X10*3/uL (4.8-10.8)
[2021-06-13 06:49] LABS: INTERNATIONAL NORM RATIO 1.3 (0.9-1.1); Prothrombin Time 15.4 SEC (9.9-13.0)
[2021-06-13 07:22] LABS: Alanine Aminotransferase 14 U/L (0-31); Albumin Level 2.1 g/dL (3.5-5.0); Alkaline Phosphatase 98 U/L (39-117); Anion Gap 9 (12-20); Aspartate Amino Transferase 23 U/L (5-31); Bilirubin Total 0.8 mg/dL (0.0-1.0); Blood Urea Nitrogen 11 mg/dL (9-16); Calcium 7.7 mg/dL (8.4-10.2); Carbon Dioxide 33 mmol/L (22-29); Chloride 97 mmol/L (96-108); Creatinine Clr Calc Pharmacy 80.8; Estimated Glomerular Filt Rate > 60; Glucose Fasting 379 mg/dL (60-99); Potassium 3.6 mmol/L (3.3-5.1); Sodium 135 mmol/L (135-145); Total Protein 5.1 g/dL (6.5-8.0)
[2021-06-13 07:26] VITALS: BP 96/56; PULSE 90; RESP 16; TEMP 36.6; O2SAT 92
[2021-06-13 07:32] LABS: Glucose, Whole Blood 334 mg/dL (60-115)
[2021-06-13 08:37] VITALS: BP 96/56; PULSE 90
[2021-06-13] MEDS: Spironolactone 25 MG TABLET 100 MG PO (08:37)
[2021-06-13 08:38] VITALS: BP 96/56; PULSE 90
[2021-06-13] MEDS: Ferrous Sulfate 324 MG TABLET.DR PO (08:38)
[2021-06-13] MEDS: carvediloL 3.125 MG TABLET PO (08:38)
[2021-06-13] MEDS: Sennosides/Docusate Sodium TABLET 1 TAB PO (08:38)
[2021-06-13] MEDS: Insulin Lispro 100 UNIT/ML 3 ML VIAL SUBCUT ×2 (08:39→12:20)
[2021-06-13 09:41] VITALS: BP 96/56; PULSE 90
[2021-06-13 11:05] VITALS: BP 99/50; PULSE 85; RESP 18; TEMP 37.4; O2SAT 92
[2021-06-13 11:12] LABS: Glucose, Whole Blood 383 mg/dL (60-115)
[2021-06-13 11:50] LABS: COVID-19 Test Negative (Negative)
--- NOTE | 2021-06-13 13:51 | PM.DS ---
DS: Providers Provider Date of Service: 06/13/21 Date of admission: 06/09/21 20:02 Primary care physician: Unknown Physician Consults: 06/09/21 22:52 Consult to Gastroenterology Routine Consulting Provider: Manoj Mesa Reason for consultation: Cirrhosis Has provider been notified: No DS: Diagnosis Discharge Diagnosis (1) Ascites: Status: Acute (2) Diabetes: Status: Acute DS: Summary Hospital Course Hospital Course: This is a 55-year-old female past medical history of liver cirrhosis, diabetes, hypertension, who has been receiving paracentesis for recent ascites at [facility] presents the hospital with complaints of severe abdominal pain, as well as lower extremity pain to the point where she is unable to walk.? Patient reports that post her most recent paracentesis she developed significant pain at the site of the needle entry ER course: Labs are significant for WBC count of 6.4, glucose of 500, lactic acid of 2.5, BNP of 136, albumin of 1.8, UA that is positive for nitrites as well as leukocyte Estrace and trace WBC. Abdominal ultrasound shows hepatic cirrhosis with recanalization of the umbilical vein and numerous portal varices present with what appears to be a spontaneous splenorenal shunt, moderate to large volume ascites, no abdominal wall hematoma.? IR attempted paracentesis however patient too uncomfortable to comply.? Admit to the floor overnight.? Hospital course Patient admitted to telemetry and continued with oral diuresis. IV ceftriaxone started to cover UTI. On 06/12/2021 patient underwent ultrasound-guided paracentesis which relieved 4 L of fluid from abdominal cavity. Patient tolerated the procedure well, with marked decrease in her abdominal pain. Of notes that she had severe edema in her lower legs on admission the day of discharge her legs are markedly improved. She is medically acceptable for transfer to SNF Time Spent with Patient Time attestation: Total time spent providing and/or coordinating discharge services: Discharge coordination time: Greater than 30 minutes Quality: Stroke Does the patient have a stroke diagnosis?: No Physical Exam Vital Signs: Vital Signs: Last Vital Signs Temp 99.3 F 06/13/21 11:05 Pulse 85 06/13/21 11:05 Resp 18 06/13/21 11:05 BP 99/50 L 06/13/21 11:05 Pulse Ox 92 06/13/21 11:05 Body Mass Index 37.4 Const: Other: No acute distress; pain control improved Resp: Other: Clear bilaterally...no rales/rhonchi/wheezes Cardio: Other: No S4; Pos S1/S2; No S3 M/R/G GI: Other: Soft/tender to minimal palpation left flank/abd. Positive BS all 4 quadrants. Left flank hematoma decreased the size Neuro: Other: Cranial nerves 2-12 grossly intact as tested. Motor is 5/5 all extremity sensation intact cognition is appropriate Extrem: Other: One to 2+ edema bilaterally (improved) DS: Data Data Completed and Pending Labs on day of discharge: Laboratory Results - last 24 hr 06/12/21 06/12/21 06/13/21 17:30 21:47 05:45 WBC 4.9 RBC 2.98 L Hgb 9.7 L Hct 30.0 L MCV 100.7 H MCH 32.6 MCHC 32.3 RDW 14.9 Plt Count 135 L D MPV 10.1 Immature Gran % (Auto) 0.4 Neut % (Auto) 69.0 Lymph % (Auto) 19.2 L [place] % (Auto) 10.8 Eos % (Auto) 0.0 Baso % (Auto) 0.6 Lymph # (Auto) 0.9 L [place] # (Auto) 0.5 Eos # (Auto) 0.0 Baso # (Auto) 0.0 Abs Immat Gran (auto) 0.02 Absolute Neuts (auto) 3.4 Absolute Nucleated RBC 0.000 Nucleated RBC % (auto) 0.0 PT INR Sodium Potassium Chloride Carbon Dioxide Anion Gap BUN Creatinine Estim Creat Clear Calc Estimated GFR POC Glucose 352 H* 380 H* Fasting Glucose Calcium Total Bilirubin AST ALT Alkaline Phosphatase Total Protein Albumin COVID-19 (DAVION) COVID-19 Clin Com 06/13/21 06/13/21 06/13/21 05:45 05:45 07:29 WBC RBC Hgb Hct MCV MCH MCHC RDW Plt Count MPV Immature Gran % (Auto) Neut % (Auto) Lymph % (Auto) [place] % (Auto) Eos % (Auto) Baso % (Auto) Lymph # (Auto) [place] # (Auto) Eos # (Auto) Baso # (Auto) Abs Immat Gran (auto) Absolute Neuts (auto) Absolute Nucleated RBC Nucleated RBC % (auto) PT 15.4 H INR 1.3 H Sodium 135 Potassium 3.6 Chloride 97 Carbon Dioxide 33 H Anion Gap 9 L BUN 11 Creatinine 0.91 Estim Creat Clear Calc 80.8 Estimated GFR > 60 POC Glucose 334 H Fasting Glucose 379 H* Calcium 7.7 L Total Bilirubin 0.8 AST 23 ALT 14 Alkaline Phosphatase 98 D Total Protein 5.1 L Albumin 2.1 L COVID-19 (DAVION) COVID-19 Clin Com 06/13/21 06/13/21 11:08 11:21 WBC RBC Hgb Hct MCV MCH MCHC RDW Plt Count MPV Immature Gran % (Auto) Neut % (Auto) Lymph % (Auto) [place] % (Auto) Eos % (Auto) Baso % (Auto) Lymph # (Auto) [place] # (Auto) Eos # (Auto) Baso # (Auto) Abs Immat Gran (auto) Absolute Neuts (auto) Absolute Nucleated RBC Nucleated RBC % (auto) PT INR Sodium Potassium Chloride Carbon Dioxide Anion Gap BUN Creatinine Estim Creat Clear Calc Estimated GFR POC Glucose 383 H* Fasting Glucose Calcium Total Bilirubin AST ALT Alkaline Phosphatase Total Protein Albumin COVID-19 (DAVION) Negative COVID-19 Clin Com See Note Preliminary micro results at discharge 06/09/21 14:25 Blood Culture - Preliminary Blood - Venous No growth after 48 hours. 06/09/21 14:25 Blood Culture - Preliminary Blood - Venous No growth after 48 hours. Discharge Plan Discharge Patient Disposition: Xfer Inpatient Rehab Fac Discharge Diagnosis: Ascities Referrals: [facility] ([place] [Outside] - 1 Week Physician,Unknown J [Primary Care Provider] - 1 Week Discharge Medications: New cefuroxime axetil 500 mg tablet 500 mg PO BID 3 Days Qty: 6 RF: 0 Continued carvedilol 3.125 mg tablet 3.125 mg PO BID Qty: 180 RF: 1 insulin aspart U-100 [Novolog Flexpen U-100 Insulin] 100 unit/mL (3 mL) insulin pen 30 unit subcut TID Qty: 15 RF: 1 sennosides-docusate sodium [Senna Plus] 8.6-50 mg tablet 1 tab PO DAILY RF: 0 polyethylene glycol 3350 [Gavilax] 17 gram/dose powder 17 g PO DAILY PRN (Reason: Constipation) RF: 0 insulin glargine 100 unit/mL (3 mL) insulin pen 100 unit subcut TU RF: 0 spironolactone 25 mg tablet 25 mg PO DAILY RF: 0 ferrous sulfate 325 mg (65 mg iron) tablet 325 mg PO DAILY RF: 0 furosemide 20 mg tablet 20 mg PO DAILY RF: 0 Discontinued cephalexin 500 mg capsule 1 cap PO TID RF: 0 Discharge Orders: Discharge Order (Routine); Ordered 06/13/21 Ordered By: Lemuel Madsen Diet: advance to usual diet Activity on Discharge: As tolerated Stand Alone Forms: Patient Portal Discharge page Care Plan Goals: Self ambulatory Health Concerns: Continue diuresis of ascitic fluid Plan of Treatment: As ordered Assessment: Improved
--- NOTE | 2021-06-13 14:07 | MHC.CM.PN ---
IMM 06/13/21 Female Discharged today to her 1st choice [facility]. Covid test results and DC info has been sent. Transport via BLS booked for 4pm.
== END 2021-06-13 17:24 | DRG 433 ==
LOC: HO.ED 15:57 → HO.EDOVER 20:10 → HO.IMC 21:27
PROVIDERS: Physician Assistant; Radiology Diagnostic Radiology; Admitting Provider Internal Medicine; Emergency Provider Emergency Medicine; Visit Provider Hospitalist
PROC: 0W9G3ZZ Drainage of Peritoneal Cavity, Percutaneous Approach (ICD-10-PCS; principal; 2021-06-12 16:00)
DX: K74.60 Unspecified cirrhosis of liver (principal); R18.8 Other ascites; N39.0 Urinary tract infection, site not specified; E87.79 Other fluid overload; K75.81 Nonalcoholic steatohepatitis (NASH); E11.65 Type 2 diabetes mellitus with hyperglycemia; R31.9 Hematuria, unspecified; Z20.822 Contact with and (suspected) exposure to COVID-19; Z79.4 Long term (current) use of insulin; Z79.899 Other long term (current) drug therapy
CPT/HCPCS: 36415; 49083; 71045; 74176; 80048; 80053; 80076; 81001; 82947; 83605; 83735; 83880; 85025; 85610; 85730; 87040; 87086; 87635; 96365; 96366; 96367; 96375; 97162; 99284; 99291; J0696; J1170; J1940; J2270; J3010; P9047

== ENCOUNTER 2021-06-14 14:15 | Inpatient (IN) | payer OTHER, SELFPAY ==
[2021-06-14] VITALS (11 sets, daily range): BP systolic 90–130; BP diastolic 43–76; PULSE 77–115; RESP 13–20; TEMP 36.7–37.2; O2SAT 96–99; BMI 33.6
--- NOTE | ~2021-06-14 | US_ITS ---
EXAMINATION: ULTRASOUND-GUIDED PARACENTESIS WITH IMAGING CLINICAL INFORMATION: Ascites. COMPARISON: Previous ultrasound exams most recent 06/16/2021 TECHNIQUE: Procedure and risks and benefits including bleeding, infection and low blood pressure were discussed with the patient and informed consent was obtained. The right lower quadrant was prepped and draped in the usual sterile fashion. The skin and soft tissues were anesthetized with 1% lidocaine plain. Using ultrasound guidance and a 5 Sami rapid centesis catheter, access to the ascitic fluid was obtained. 5.4 L of clear yellow fluid was removed. Diagnostic specimen was sent for Gram stain, culture and cell count. FINDINGS: There is a moderate amount of ascites. US/US paracentesis abd w/image IMPRESSION: Ultrasound-guided paracentesis.
--- NOTE | ~2021-06-14 | MR_ITS ---
EXAMINATION: MR ABDOMEN WITHOUT CONTRAST CLINICAL INFORMATION: Gallstones. Rule out common bile duct stone. Cirrhosis. COMPARISON: CT abdomen and pelvis of 06/14/2021. Abdominal ultrasound of 06/16/2021. TECHNIQUE: MR abdomen is performed without gadolinium contrast. MRCP sequences were obtained. The evaluation is limited as patient was not able to suspend respiration. FINDINGS: Cirrhotic morphology of the liver is noted. The visualized lung bases appear clear. The liver is partially imaged. Cholelithiasis is noted. No evidence of dilatation of the biliary ducts in the visualized liver. Common bile duct is better evaluated on the axial T2-weighted images. The common bile duct is normal in caliber. There is no evidence of choledocholithiasis. Common bile duct measures 0.3 cm in diameter. There is small volume ascites. The visualized pancreas is grossly unremarkable. No adrenal mass. Visualized kidneys are unremarkable. No evidence of abdominal wall hernia in the visualized abdomen. MR/MR MRCP IMPRESSION: Limited evaluation. Cholelithiasis. No evidence of biliary ductal dilatation. No evidence of choledocholithiasis. Cirrhotic morphology of the liver. Ascites.
--- NOTE | ~2021-06-14 | US_ITS ---
EXAMINATION: US ABDOMEN LIMITED CLINICAL INFORMATION: Cirrhosis. Gallstones. GNR sepsis. Rule out CBD stone/obstruction. COMPARISON: CT abdomen and pelvis 06/14/2021. Ultrasound abdomen complete 09/14/2019. Ultrasound abdomen limited 01/09/2019. TECHNIQUE: Real-time imaging of the right upper quadrant abdominal viscera.Limited portable exam; patient unable to tolerate pressure from probe. FINDINGS: PANCREAS: Not visualized LIVER: The liver is not well evaluated. The liver echotexture is increased and heterogeneous. The liver is small with a scalloped contour suggestive of cirrhosis. No biliary duct dilatation is seen. GALLBLADDER: Not well visualized. There is a wall echo shadow complex suggestive of a gallbladder filled with gallstones. The staff technologist reports the patient is tender over the gallbladder. COMMON BILE DUCT: Not seen. RIGHT KIDNEY: Not seen. FREE FLUID: There is a moderate amount of ascites. US/US abdomen limited IMPRESSION: Very limited exam. Cirrhotic-appearing liver. Gallstones. Ascites.
--- NOTE | ~2021-06-14 | CT_ITS ---
EXAMINATION: CT ABDOMEN AND PELVIS WITH CONTRAST CLINICAL INFORMATION: Abdominal pain COMPARISON: 06/09/2021 TECHNIQUE: Multidetector volumetric images were obtained from the superior aspect of the liver through the pubic symphysis following administration 85 mL of Omnipaque 350 intravenous contrast. Sagittal and coronal reformatted images were obtained on the technologist's workstation. Oral contrast: No This CT examination was performed using dose optimization techniques as appropriate, variously including the following: *Automated exposure control *Adjustment of mA and/or kV according to patient size (this includes techniques or standardized protocols for targeted exams where dose is matched to indication/reason for exam; i.e. extremities or head) *Use of iterative reconstruction technique DLP: 312 mGy-cm FINDINGS: LUNG BASES: Bibasilar atelectasis LIVER, GALLBLADDER, AND BILIARY TREE: Once again cirrhotic appearing liver. No obvious lesion but deferred MRI. Moderate upper abdominal ascites mildly increased from previous exam once again stones in the gallbladder. PANCREAS: Unremarkable. SPLEEN: Unremarkable. ADRENAL GLANDS: Unremarkable. KIDNEYS AND URETERS: The kidneys are normal in size, shape, and attenuation. No hydronephrosis, hydroureter, or calculi seen. No perinephric stranding. BLADDER: Unremarkable. GASTROINTESTINAL TRACT: The bowel pattern is nonobstructing. Cannot rule out healing must consider some thick-walled small bowel. Enteritis would be a consideration. Moderate ascites in the pelvis is noted. Similar to previous. ABDOMINAL WALL: Soft tissue edema is seen. Similar to previous. Anasarca LYMPH NODES: Normal. VASCULAR: Unremarkonce again present.able. PELVIC VISCERA: Unremarkable. OSSEOUS STRUCTURES: Unremarkable. CT/CT abdomen pelvis w con IMPRESSION: Exam is felt to be similar to previous. Moderate abdominal pelvic ascites mildly increased in the upper abdomen from previous. Superimposed infection cannot be excluded but no air bubbles are seen within the ascites Mild thickening of the small bowel wall. Enteritis would be a consideration. This may be reactive to fluid Once again cirrhosis of the liver. Cholelithiasis is noted.
--- NOTE | 2021-06-14 14:34 | ECG_ITS ---
Test Reason : ABDOMINAL PAIN Blood Pressure : / mmHG Vent. Rate : 094 BPM Atrial Rate : 094 BPM P-R Int : 154 ms QRS Dur : 070 ms QT Int : 364 ms P-R-T Axes : 018 008 020 degrees QTc Int : 455 ms Normal sinus rhythm Normal ECG When compared with ECG of 14-SEP-2019 17:43, Heart rate has decreased Referred By: Clayton Colon Electronically Signed By:AVERY CHASE MD
--- NOTE | 2021-06-14 14:41 | ED_ITS ---
HPI - Abdominal Pain General Chief Complaint: Abdominal Pain Stated Complaint: ABD PAIN W/FLUID BUILD UP IN STOMACH PER EMS Time Seen by Provider: 06/14/21 14:33 Source: patient Mode of arrival: EMS Limitations: no limitations History of Present Illness HPI narrative: 55 y/o female with history of ARGUELLO cirrhosis with large volume ascites requiring recurrent large volume paracentesis since March 2021, history of poorly controlled DM on insulin who presents to the ER via EMS from a SNF with severe abdominal pain. 05/28 pain worse in the left lower, and right lower quadrant. She states she is having pain to bilateral lower quadrants, over the sites of previous paracentesis. She states the pain is so bad she is unable to move, and she just lays in bed all day. frequently has to get large volume paracentesis, for comfort. Today she states chest pain, she is not having shortness of breath. She states she was recently hospitalized here, due to severe abdominal pain, and ascites. She denies chest pain, shortness of breath, fevers, chills, nausea, vomiting, abdominal pain, fatigue, weakness. Related Data Home Medications Medication Instructions Recorded Confirmed ferrous sulfate 325 mg (65 mg 325 mg PO DAILY 09/05/20 06/14/21 iron) tablet furosemide 20 mg tablet 20 mg PO DAILY 09/05/20 06/14/21 spironolactone 25 mg tablet 25 mg PO DAILY tab 09/05/20 06/14/21 insulin glargine 100 unit/mL (3 100 unit SUBCUT TU 05/18/21 06/14/21 mL) subcutaneous pen polyethylene glycol 3350 17 17 g PO DAILY PRN 06/09/21 06/14/21 gram/dose oral powder (Gavilax) sennosides 8.6 mg-docusate sodium 1 tab PO DAILY 06/09/21 06/14/21 50 mg tablet (Senna Plus) cephalexin 500 mg capsule 1 cap PO TID 06/14/21 06/14/21 Previous Rx's Medication Instructions Recorded carvedilol 3.125 mg tablet 3.125 mg PO BID #180 tab 03/09/21 insulin aspart U-100 100 unit/mL 30 unit SUBCUT TID #15 cap 04/18/21 (3 mL) subcutaneous pen (Novolog Flexpen U-100 Insulin aspart) Allergies Allergy/AdvReac Type Severity Reaction Status Date / Time No Known Allergies Allergy Verified 09/19/20 09:26 [No Known Allergies*] Review of Systems Review of Systems Yes all other systems are reviewed and are negative Physical Exam Vital Signs: Vital Signs: Last Vital Signs Temp 98.9 F 06/14/21 20:06 Pulse 86 06/14/21 20:46 Resp 15 06/14/21 20:46 BP 119/76 06/14/21 20:46 Pulse Ox 98 06/14/21 20:46 Body Mass Index 33.6 Const: General: cooperative and no acute distress Orientation/consc iousness: oriented to person and oriented to place Limitations: no limitations HENMT: Head: Yes normal to inspection, Yes normocephalic and Yes atraumatic Ears: external ears normal General nose exam: Normal external nose present Face and sinus: Yes normal facial exam Mouth: Normal oral and palatal mucosa present Throat: Yes posterior oropharynx normal Eyes: General: appearance normal, both eyes and all related structures Pupils: Equal, round and reactive pupils present Neck: Neck: Yes normal visual inspection, Yes no lymphadenopathy, Yes trachea midline and Yes supple Chest: Chest palpation & inspection: normal inspection of the chest and normal palpation of entire chest wall Resp: Effort & Inspection: normal respiratory effort and able to speak in complete sentences Auscultation: clear to auscultation bilaterally Cardio: Rate: regular rate Rhythm: regular rhythm Heart sounds: S1 normal heart sound present, S2 normal heart sound present and no murmurs GI: Other: Patient has severe tenderness to palpation of left lower quadrant, and right lower quadrant. She also has overlying calor overlying and old paracentesis site on the left lower quadrant. A site of a previous paracentesis is also noted in the right lower quadrant, free of erythema, and color. Inspection: Yes normal to inspection Palpation (GI): Soft to palpation, Tenderness to palpation present (GI) in the LLQ and in the RLQ and no guarding Auscultation: normal bowel sounds : General: Yes no CVA tenderness Back/Spine/Pelvis: Back: no CVA tenderness Skin: General skin exam: no rashes or lesions noted Neuro: General: oriented to person and oriented to place Cranial nerves: Yes CN's II-XII intact bilaterally and Yes Equal, round and reactive pupils present Cognition (Neuro): normal cognition Motor exam (neuro): 5/5 motor strength present throughout Extrem: General: Yes normal to inspection Psych: Appearance: grossly normal Speech and movement: Normal speech and movement present Affect: normal affect Attitude: cooperative Thought process: Normal thought process present Thought content: Normal thought co ntent present Procedures Paracentesis Time Out Performed: Yes Local Anesthetic: lidocaine 1% Amount of anesthesia used (mL): 2 Fluid: clear Post Procedure Exam: awake, alert and normal BP Patient Tolerated Procedure: well and no complications Complications: none and other (4.5 L removed, fluids sent for diagnostic evaluation) Course Reevaluation(s) Reevaluation #1: Lactic 2.2 likely secondary to cirrhosis causing metabolic acidosis. Time: 15:24 Reevaluation #2: Spoke to hospitalist, about this case, who feel like abdominal pain should be further evaluated, before agreeing to admission. CT of the abdomen and pelvis has been ordered at this time to rule any other intra- abdominal etiologies. Time: 17:32 Reevaluation #3: Second lactic 2.3, again likley secondary to cirrhosis causing metabolic acidosis. MDM - Abdominal Pain MDM Narrative Medical decision making narrative: 1434 55 y/o F w/ PMHX of ARGUELLO cirrhosis with large volume ascites requiring recurrent large volume paracentesis since March 2021, history of poorly controlled DM on insulin who presents to the ER via EMS from a SNF with severe abdominal pain, worse in the LLQ and RLQ. She reports no fevers, chills or SOB Upon physical examination there is severe tenderness to palpation to the left lower quadrant, and right lower quadrant. There is overlying callor to the left lower quadrant over a previous paracentesis site, concerning for infection. There is also previous site of paracentesis in the right lower quadrant, however there is no overlying erythema, or calor. Lungs are clear to auscultation. Because of these physical exam findings, and patient history blood cultures, lactic, PTT, PT INR, UA, CBC, CMP, lipase and antibiotics will be ordered. A few weeks ago she was seen at [facility] yesterday and had a paracentesis done. Prior to that 6.1 L were taken off here on 05/18.When reviewing notes from 06/09/2021 melba stakeke Khalil came to the bedside to perform a paracentesis, however did not appear that there was enough fluid to tap.? He using ultrasound over the left lower quadrant puncture site and was concerned for possible hematoma.? He recommended CT scan of the abdomen for evaluation. ?CT scan of the abdomen showed moderate to large volume ascites, no abdominal wall hematoma.? Patient was diuresed with Lasix.? She was admitted for further diuresis and pain managment To note patient was admitted here from 06/09/2021- 06/13/2021. Her last paracentesis was on 06/12 where they drained 4L of fluid from the abdominal cavity. At this time she was also treated with IV ceftriaxone to tx a UTI. It appears as though patient had significant edema from the ribs down to the feet, 3+ pitting. Upon discharge from her last admission it appears as though this improved with diuretics. [facility] Lab Data Result diagrams: 06/14/21 15:24 06/14/21 15:24 Labs: Lab Results 06/14/21 06/14/21 06/14/21 Range/Units 15:24 15:24 15:24 WBC 6.7 (4.8-10.8) X10*3/uL RBC 3.33 L (4.20-5.50) X10*6/uL Hgb 11.2 L (12.0-16.0) g/dl Hct 33.5 L (37-47) % MCV 100.6 H (80-98) fL MCH 33.6 H (27.0-33.0) pg MCHC 33.4 (31.0-35.0) g/dl RDW 15.3 (11.0-16.0) % Plt Count 153 L (160-400) X10*3/uL MPV 9.7 (9.4-12.3) fL Immature Gran % (Auto) 0.5 H (0.0-0.4) % Neut % (Auto) 70.9 (45-73) % Lymph % (Auto) 18.5 L (20-40) % [place] % (Auto) 9.8 (2-11) % Eos % (Auto) 0.0 (0-4) % Baso % (Auto) 0.3 (0-2) % Lymph # (Auto) 1.2 (1.2-4.9) X10*3/uL [place] # (Auto) 0.7 (0.1-1.2) X10*3/uL Eos # (Auto) 0.0 (0.0-0.4) X10*3/uL Baso # (Auto) 0.0 (0.0-0.2) X10*3/uL Abs Immat Gran (auto) 0.03 (0.00-0.03) X10*3/uL Absolute Neuts (auto) 4.7 (2.0-8.3) X10*3/uL Absolute Nucleated RBC 0.000 (0.0-0.012) X10*3/uL Nucleated RBC % (auto) 0.0 (0.0-0.2) /100WBC PT 14.4 H (9.9-13.0) SEC INR 1.3 H (0.9-1.1) APTT 30.3 (24.1-38.0) SEC Sodium 134 L (135-145) mmol/L Potassium 3.5 (3.3-5.1) mmol/L Chloride 96 (96-108) mmol/L Carbon Dioxide 33 H (22-29) mmol/L Anion Gap 9 L (12-20) BUN 11 (9-16) mg/dL Creatinine 0.95 (0.5-1.4) mg/dL Estim Creat Clear Calc 73.0 Estimated GFR > 60 Random Glucose 241 H (60-115) mg/dL Lactic Acid (0.5-2.0) mmol/L Lactic Acid Fup @ 2Hr (0.5-2.0) mmol/L Lactic Acid Fup @ 4Hr (0.5-2.0) mmol/L Calcium 8.1 L (8.4-10.2) mg/dL Total Bilirubin 0.9 (0.0-1.0) mg/dL AST 30 (5-31) U/L ALT 16 (0-31) U/L Alkaline Phosphatase 112 (39-117) U/L Total Protein 6.2 L D (6.5-8.0) g/dL Albumin 2.4 L (3.5-5.0) g/dL Lipase 66 (8-78) U/L COVID-19 (DAVION) (Negative) COVID-19 Clin Com 10/27/21 10/27/21 10/27/21 Range/Units 15:24 15:24 17:51 WBC (4.8-10.8) X10*3/uL RBC (4.20-5.50) X10*6/uL Hgb (12.0-16.0) g/dl Hct (37-47) % MCV (80-98) fL MCH (27.0-33.0) pg MCHC (31.0-35.0) g/dl RDW (11.0-16.0) % Plt Count (160-400) X10*3/uL MPV (9.4-12.3) fL Immature Gran % (Auto) (0.0-0.4) % Neut % (Auto) (45-73) % Lymph % (Auto) (20-40) % [place] % (Auto) (2-11) % Eos % (Auto) (0-4) % Baso % (Auto) (0-2) % Lymph # (Auto) (1.2-4.9) X10*3/uL [place] # (Auto) (0.1-1.2) X10*3/uL Eos # (Auto) (0.0-0.4) X10*3/uL Baso # (Auto) (0.0-0.2) X10*3/uL Abs Immat Gran (auto) (0.00-0.03) X10*3/uL Absolute Neuts (auto) (2.0-8.3) X10*3/uL Absolute Nucleated RBC (0.0-0.012) X10*3/uL Nucleated RBC % (auto) (0.0-0.2) /100WBC PT (9.9-13.0) SEC INR (0.9-1.1) APTT (24.1-38.0) SEC Sodium (135-145) mmol/L Potassium (3.3-5.1) mmol/L Chloride (96-108) mmol/L Carbon Dioxide (22-29) mmol/L Anion Gap (12-20) BUN (9-16) mg/dL Creatinine (0.5-1.4) mg/dL Estim Creat Clear Calc Estimated GFR Random Glucose (60-115) mg/dL Lactic Acid 2.2 H* (0.5-2.0) mmol/L Lactic Acid Fup @ 2Hr 2.3 H* (0.5-2.0) mmol/L Lactic Acid Fup @ 4Hr (0.5-2.0) mmol/L Calcium (8.4-10.2) mg/dL Total Bilirubin (0.0-1.0) mg/dL AST (5-31) U/L ALT (0-31) U/L Alkaline Phosphatase (39-117) U/L Total Protein (6.5-8.0) g/dL Albumin (3.5-5.0) g/dL Lipase (8-78) U/L COVID-19 (DAVION) Negative (Negative) COVID-19 Clin Com See Note 06/14/21 Range/Units 20:17 WBC (4.8-10.8) X10*3/uL RBC (4.20-5.50) X10*6/uL Hgb (12.0-16.0) g/dl Hct (37-47) % MCV (80-98) fL MCH (27.0-33.0) pg MCHC (31.0-35.0) g/dl RDW (11.0-16.0) % Plt Count (160-400) X10*3/uL MPV (9.4-12.3) fL Immature Gran % (Auto) (0.0-0.4) % Neut % (Auto) (45-73) % Lymph % (Auto) (20-40) % [place] % (Auto) (2-11) % Eos % (Auto) (0-4) % Baso % (Auto) (0-2) % Lymph # (Auto) (1.2-4.9) X10*3/uL [place] # (Auto) (0.1-1.2) X10*3/uL Eos # (Auto) (0.0-0.4) X10*3/uL Baso # (Auto) (0.0-0.2) X10*3/uL Abs Immat Gran (auto) (0.00-0.03) X10*3/uL Absolute Neuts (auto) (2.0-8.3) X10*3/uL Absolute Nucleated RBC (0.0-0.012) X10*3/uL Nucleated RBC % (auto) (0.0-0.2) /100WBC PT (9.9-13.0) SEC INR (0.9-1.1) APTT (24.1-38.0) SEC Sodium (135-145) mmol/L Potassium (3.3-5.1) mmol/L Chloride (96-108) mmol/L Carbon Dioxide (22-29) mmol/L Anion Gap (12-20) BUN (9-16) mg/dL Creatinine (0.5-1.4) mg/dL Estim Creat Clear Calc Estimated GFR Random Glucose (60-115) mg/dL Lactic Acid (0.5-2.0) mmol/L Lactic Acid Fup @ 2Hr (0.5-2.0) mmol/L Lactic Acid Fup @ 4Hr 2.2 H* (0.5-2.0) mmol/L Calcium (8.4-10.2) mg/dL Total Bilirubin (0.0-1.0) mg/dL AST (5-31) U/L ALT (0-31) U/L Alkaline Phosphatase (39-117) U/L Total Protein (6.5-8.0) g/dL Albumin (3.5-5.0) g/dL Lipase (8-78) U/L COVID-19 (DAVION) (Negative) COVID-19 Clin Com Imaging Data CT scan - abdomen: Attestation: I personally reviewed and interpreted this imaging study as follows: Radiologist's impression: CT/CT abdomen pelvis w con IMPRESSION: Exam is felt to be similar to previous. Moderate abdominal pelvic ascites mildly increased in the upper abdomen from previous. ? Superimposed infection cannot be excluded but no air bubbles are seen within the ascites ? Mild thickening of the small bowel wall. Enteritis would be a consideration. This may be reactive to fluid ? Once again cirrhosis of the liver. Cholelithiasis is noted. Discharge Plan Discharge Clinical Impression: Ascites Patient Disposition: Admitted As Inpatient [facility] Past Medical History Attestation statement: The following information was validated with the patient. Source: old records reviewed and nursing notes reviewed Medical History Cirrhosis Diabetes (~01/31/21) HTN (hypertension) Family History Family History Mother No problems noted. Father No problems noted. Social History Social History Household Members: Children Housing: House Do you presently have visiting nurse or other home services: No Alcohol intake: never Patient Tobacco Use Status: Never used Tobacco Advance Directives: No Advance Directives Information Provided: No Patient : No service: No Current occupational status: disabled
[2021-06-14 15:29] LABS: MANUAL DIFF FLAG NO
[2021-06-14 15:31] LABS: Basophils Percent Auto 0.3 % (0-2); Hematocrit 33.5 % (37-47); Hemoglobin 11.2 g/dl (12.0-16.0); Imm Gran Abs Auto 0.03 X10*3/uL (0.00-0.03); Imm Gran Pct Auto 0.5 % (0.0-0.4); Lymphocytes Absolute Auto 1.2 X10*3/uL (1.2-4.9); Lymphocytes Percent Auto 18.5 % (20-40); Mean Corpuscular HGB Conc 33.4 g/dl (31.0-35.0); Mean Corpuscular Hemoglobin 33.6 pg (27.0-33.0); Mean Corpuscular Volume 100.6 fL (80-98); Mean Platelet Volume 9.7 fL (9.4-12.3); Monocytes Absolute Auto 0.7 X10*3/uL (0.1-1.2); Monocytes Percent Auto 9.8 % (2-11); Neutrophils Absolute Auto 4.7 X10*3/uL (2.0-8.3); Neutrophils Percent Auto 70.9 % (45-73); Platelet Count 153 X10*3/uL (160-400); Red Blood Count 3.33 X10*6/uL (4.20-5.50); Red Cell Distribution Width 15.3 % (11.0-16.0); White Blood Count 6.7 X10*3/uL (4.8-10.8)
[2021-06-14] MEDS: fentaNYL citrate/PF 100 MCG/2 ML VIAL IVPUSH (15:33)
[2021-06-14] MEDS: cefTRIAXone sodium 1 GM in 0.9 % Sodium Chloride 50 ML IV (15:33)
[2021-06-14 15:36] LABS: INTERNATIONAL NORM RATIO 1.3 (0.9-1.1); Prothrombin Time 14.4 SEC (9.9-13.0)
[2021-06-14 15:39] LABS: Partial Thromboplastin Time 30.3 SEC (24.1-38.0)
[2021-06-14 15:51] LABS: Alanine Aminotransferase 16 U/L (0-31); Albumin Level 2.4 g/dL (3.5-5.0); Alkaline Phosphatase 112 U/L (39-117); Anion Gap 9 (12-20); Aspartate Amino Transferase 30 U/L (5-31); Bilirubin Total 0.9 mg/dL (0.0-1.0); Blood Urea Nitrogen 11 mg/dL (9-16); Calcium 8.1 mg/dL (8.4-10.2); Carbon Dioxide 33 mmol/L (22-29); Chloride 96 mmol/L (96-108); Estimated Glomerular Filt Rate > 60; Glucose Random 241 mg/dL (60-115); Lipase 66 U/L (8-78); Potassium 3.5 mmol/L (3.3-5.1); Sodium 134 mmol/L (135-145); Total Protein 6.2 g/dL (6.5-8.0)
[2021-06-14 15:54] LABS: COVID-19 Test Negative (Negative); IDNOW Serial# 9DD0AD1C
[2021-06-14 15:56] LABS: Lactic Acid 2.2 mmol/L (0.5-2.0)
--- NOTE | 2021-06-14 16:49 | PC.NURSE ---
Pt alert and oriented x4, calm and cooperative. Pt states abd pain worse on the right side. Pt received IV pain meds and stated relief with meds given. IV intact, vitals remain stable pt on room air. Puncture site noted to left abd, covered in clean dry sterile dressing. Pt resting in stretcher at this time, will continue to monitor.
[2021-06-14 17:29] LABS: Reflex Lactate? Lactic Acid Added
[2021-06-14 18:19] LABS: ~Lactic Acid-LAB USE ONLY 2.3 mmol/L (0.5-2.0)
[2021-06-14] MEDS: iohexoL 350 MG/ML 100 ML INFUS..BTL IV (18:32)
[2021-06-14 19:55] LABS: Reflex Lactate? 2 Y
[2021-06-14] MEDS: Morphine Sulfate 4 MG/ML CARTRIDGE IVPUSH (20:05)
--- NOTE | 2021-06-14 20:32 | PM.IMHP ---
History of Present Illness Date of Service: 06/14/21 Chief Complaint: Abdominal pain 55-year-old female with a past medical history of hyperlipidemia, Grajeda, liver cirrhosis, ascites-receiving frequent therapeutic paracentesis; chronic abdominal pain; recently discharged from the hospital on 06/12/2021 post 3.5 L of paracentesis; presented to the hospital today with a chief complaint of abdominal pain. Patient reported that since discharge she has continued to have abdominal pain which is today worsened; reports 10 out 10 intensity; not improving with the pain medications; hence presented to the hospital. Denies any headaches numbness tingling or focal weakness. At the time of my interview patient is alert awake and appears to be in mild distress secondary to the pain. Mentating well. Denies any fevers. Denies any urinary symptoms. Denies any chest pain palpitations lightheadedness or dizziness. Review of all other systems is negative except mentioned above ER course: Per ER team patient noted a firm abdomen, distended, being arrange for diagnostic/therapeutic tap. Pending labs. Patient was given ceftriaxone empirically. Patient was given fentanyl with no significant improvement the pain. Vitals were stable. Patient was afebrile. Labs essentially benign at her baseline. Admitted to the hospital for further management. [facility] Medical History Cirrhosis Diabetes (~01/31/21) HTN (hypertension) Family History Mother No problems noted. Father No problems noted. Pertinent family history: As mentioned above Social History Household Members: Children Housing: House Do you presently have visiting nurse or other home services: No Alcohol intake: never Patient Tobacco Use Status: Never used Tobacco Advance Directives: No Advance Directives Information Provided: No Patient : No service: No Current occupational status: disabled Meds Allergies Allergy/AdvReac Type Severity Reaction Status Date / Time No Known Allergies Allergy Verified 09/19/20 09:26 [No Known Allergies*] Active Medications: Current Medications Carvedilol (Carvedilol 3.125 Mg Tablet) 3.125 mg PO BID ODALYS; Protocol Furosemide (Furosemide 20 Mg Tablet) 20 mg PO DAILY ODALYS; Protocol Hydromorphone HCl (Hydromorphone Hcl 0.5 Mg/0.5 Ml Syringe) 0.5 mg IVPUSH Q4H PRN; Protocol PRN Reason: Pain, Severe (Pain Scale 7-10) Albumin Human (Kedbumin 25 %) 50 mls @ 100 mls/hr IV ONCE ONE Stop: 06/14/21 20:57 Ceftriaxone Sodium 1 gm/ (Sodium Chloride) 50 mls @ 100 mls/hr IV Q24H [facility] Melatonin (Melatonin 3 Mg Tablet) 6 mg PO BEDTIME PRN PRN Reason: Insomnia Non-Formulary Medication (Ferrous Sulfate) 325 mg PO DAILY [facility] Pharmacy Consult (Consult Rx Perform Med Rec) 1 each MISCELLANE ONCE PRN PRN Reason: Consult order Polyethylene Glycol (Polyethylene Glycol 3350 17 Gm Powd.Pack) 17 gm PO DAILY PRN PRN Reason: Constipation Senna (Sennosides 8.6 Mg Tablet) 17.2 mg PO BEDTIME PRN PRN Reason: Constipation Sodium Chloride (0.9 % Sodium Chloride Flush 3 Ml Syringe) 3 ml IVFLUSH QSHIFT [facility] Spironolactone (Spironolactone 25 Mg Tablet) 25 mg PO DAILY [facility]; Protocol Home Medications Medication Instructions Recorded Confirmed Last Taken Type ferrous sulfate 325 mg (65 mg 325 mg PO DAILY 09/05/20 06/14/21 06/14/21 History iron) tablet furosemide 20 mg tablet 20 mg PO DAILY 09/05/20 06/14/21 06/14/21 History spironolactone 25 mg tablet 25 mg PO DAILY tab 09/05/20 06/14/21 06/14/21 History insulin glargine 100 unit/mL (3 100 unit SUBCUT TU 05/18/21 06/14/21 06/14/21 History mL) subcutaneous pen polyethylene glycol 3350 17 17 g PO DAILY PRN 06/09/21 06/14/21 06/14/21 History gram/dose oral powder (Gavilax) sennosides 8.6 mg-docusate sodium 1 tab PO DAILY 06/09/21 06/14/21 06/14/21 History 50 mg tablet (Senna Plus) cephalexin 500 mg capsule 1 cap PO TID 06/14/21 06/14/21 06/14/21 History Physical Exam Vital Signs and Narrative: Vital Signs: Last Vital Signs Temp 98.9 F 06/14/21 20:06 Pulse 88 06/14/21 20:32 Resp 14 06/14/21 20:32 BP 130/71 06/14/21 20:32 Pulse Ox 99 06/14/21 20:32 Body Mass Index 33.6 Gen: Appears be in no acute distress HEENT: NCAT, Moist mucosa. Pulmonary: Vesicular breath sounds, fair air entry CVS: Normal S1-S2 Abdomen: BS+, firm, distended; tender diffusely more so on the right side; Extremities: Warm well perfused Neuro: Alert and awake. Grossly nonfocal Results Labs CBC and Chem 7: 06/14/21 15:24 06/14/21 15:24 Labs: Laboratory Results - last 24 hr 06/14/21 06/14/21 06/14/21 15:24 15:24 15:24 MCV 100.6 H MCH 33.6 H MCHC 33.4 RDW 15.3 Plt Count 153 L MPV 9.7 Immature Gran % (Auto) 0.5 H Neut % (Auto) 70.9 Lymph % (Auto) 18.5 L [place] % (Auto) 9.8 Eos % (Auto) 0.0 Baso % (Auto) 0.3 Lymph # (Auto) 1.2 [place] # (Auto) 0.7 Eos # (Auto) 0.0 Baso # (Auto) 0.0 Abs Immat Gran (auto) 0.03 Absolute Neuts (auto) 4.7 Absolute Nucleated RBC 0.000 Nucleated RBC % (auto) 0.0 PT 14.4 H INR 1.3 H APTT 30.3 Anion Gap 9 L Estim Creat Clear Calc 73.0 Estimated GFR > 60 Random Glucose 241 H Lactic Acid Lactic Acid Fup @ 2Hr Calcium 8.1 L Total Bilirubin 0.9 AST 30 ALT 16 Alkaline Phosphatase 112 Total Protein 6.2 L D Albumin 2.4 L Lipase 66 COVID-19 ([facility]VION) COVID-19 Clin Com 06/14/21 06/14/21 06/14/21 15:24 15:24 17:51 MCV MCH MCHC RDW Plt Count MPV Immature Gran % (Auto) Neut % (Auto) Lymph % (Auto) [place] % (Auto) Eos % (Auto) Baso % (Auto) Lymph # (Auto) [place] # (Auto) Eos # (Auto) Baso # (Auto) Abs Immat Gran (auto) Absolute Neuts (auto) Absolute Nucleated RBC Nucleated RBC % (auto) PT INR APTT Anion Gap Estim Creat Clear Calc Estimated GFR Random Glucose Lactic Acid 2.2 H* Lactic Acid Fup @ 2Hr 2.3 H* Calcium Total Bilirubin AST ALT Alkaline Phosphatase Total Protein Albumin Lipase COVID-19 (DAVION) Negative COVID-19 Clin Com See Note Imaging Radiologist's Impressions: Impressions Abdomen/Pelvis CT 06/14/21 17:30 IMPRESSION: Exam is felt to be similar to previous. Moderate abdominal pelvic ascites mildly increased in the upper abdomen from previous. Superimposed infection cannot be excluded but no air bubbles are seen within the ascites Mild thickening of the small bowel wall. Enteritis would be a consideration. This may be reactive to fluid Once again cirrhosis of the liver. Cholelithiasis is noted. Assessment and Plan (1) Abdominal pain: Qualifiers: Abdominal location: unspecified location Qualified Code(s): R10.9 - Unspecified abdominal pain Status: Acute (2) Ascites: Status: Acute (3) Fluid overload: Qualifiers: Hypervolemia type: other Qualified Code(s): E87.79 - Other fluid overload Status: Acute (4) Diabetes: Qualifiers: Diabetes mellitus complication status: with hyperglycemia Diabetes mellitus mcfp insulin use: with manager process excellence use Diabetes mellitus type: type 2 Qualified Code(s): E11.65 - Type 2 diabetes mellitus with hyperglycemia; Z79.4 - FPC (current) use of insulin Status: Acute 55-year-old female with a past medical history of hyperlipidemia, Grajeda, liver cirrhosis, ascites-receiving frequent therapeutic paracentesis; chronic abdominal pain; recently discharged from the hospital on 06/12/2021 post 3.5 L of paracentesis; presented to the hospital today with a chief complaint of abdominal pain. Abdominal pain: In the setting of ascites. Abdomen was firm on examination. Patient has diagnostic and therapeutic tap done in the ER; ascitic fluid negative for infection Removed about 5 L of ascitic fluid in the ER. Patient's blood pressure is slightly decreased; patient was given albumin-> blood pressure improving. Pain control CT abdomen showed ascites/enteritis. Supportive care Hold home Lasix and Aldactone given sepsis UTI: Continue ceftriaxone. Follow-up cultures Bacteremia: blood cx grew GNR; ID consult Diabetes: Insulin sliding scale. Follow fingerstick glucose. Adjust insulins as needed. HTN: held home coreg given soft BP. For all other chronic conditions, home medications will be continued. DVT prophylaxis: Subcu heparin Code status: Full code Quality Stroke Does the patient have a stroke diagnosis?: No VTE Prior VTE?: No VTE Risk Level:: Medical - low VTE Device Contraindication: N/A - Device Ordered VTE Drug Contraindication: Treatment Not Indicated
[2021-06-14 20:38] LABS: ~Lactic Acid-LAB USE ONLY 2.2 mmol/L (0.5-2.0)
[2021-06-14 20:53] LABS: MN% 80.4 %; PMN% 19.6 %; RBC Peritoneal Fluid < 0.002 X10*6/uL; WBC Peritoneal Fluid 0.117 X10*3/uL
[2021-06-14 21:19] LABS: Lymphocyte Peritoneal Fl 59 %; Neutrophils Peritoneal Fluid 18 %
[2021-06-14 21:20] LABS: BF Shift QC OK YES; Monocytes Peritoneal Fl 11 %; Other Peritioneal Fl 12 %
[2021-06-14] MEDS: Albumin Human 25 % 50 ML 100 ML IV (21:34)
--- NOTE | 2021-06-14 22:54 | PC.NURSE ---
Pt remains alert and oriented x4, calm and cooperative. Pt had paracentesis, right lower quadrant done tonight in ER and tolerated well. Pt vitals remain stable. Pt resting in stretcher at this time, will continue to monitor.
--- NOTE | 2021-06-14 23:08 | MHC.CM.PN ---
CM met with admitted patient with bed assignment pending. Pt A&Ox3. IMM reviewed and signed per protocol 06/14/2021@2250. Pt was hospitalized at [facility] [place]. Had paracentesis on 06/11. D/C to [facility] yesterday. Returned today. Paracentesis in ED. HCP on file. HCP/sister Mariusz Suresh ([phone]). Pt fully vaccinated with Pfizer. Pt uses a walker and cane. D/C plan is to return to [facility] at D/C. Return referral placed. Pt expresses frustration and worry about diagnosis and prognosis. CM listened and validated patient concerns. CM to follow for d/c needs.
[2021-06-14 23:34] LABS: Glucose, Whole Blood 187 mg/dL (60-115)
[2021-06-15] VITALS (13 sets, daily range): BP systolic 91–126; BP diastolic 46–66; PULSE 73–92; RESP 10–20; TEMP 36.2–37.4; O2SAT 94–100
--- NOTE | 2021-06-15 | ECG_ITS ---
Test Reason : cp Blood Pressure : / mmHG Vent. Rate : 088 BPM Atrial Rate : 088 BPM P-R Int : 154 ms QRS Dur : 070 ms QT Int : 380 ms P-R-T Axes : 021 000 012 degrees QTc Int : 459 ms Normal sinus rhythm Nonspecific T wave abnormality Borderline ECG When compared with ECG of 15-JUN-2021 12:56, No significant change was found Referred By: Eliel Martinez Electronically Signed By:AVERY CHASE MD
[2021-06-15] MEDS: HYDROmorphone HCl 0.5 MG/0.5 ML SYRINGE IVPUSH ×2 (00:57→07:51)
[2021-06-15] MEDS: 0.9 % Sodium Chloride Flush 3 ML SYRINGE IVFLUSH ×3 (00:58→15:59)
--- NOTE | 2021-06-15 01:08 | PC.NURSE ---
Pt alert and oriented x4, calm and cooperative. Pt ambulated two steps with nursing staff to hospital bed, pt states 10/10 right sided abd pain after ambulating. Denies nausea and vomiting. Pt received IV Dilaudid per MD PRN orders, bar code not scanning CHRIS Feliz witnessed IV push Dilaudid given to patient. IV remains intact, vitals remain stable. Pt remains on room air. Pt noted to have incontinent urine episode in diaper, pt cleaned with wipes and new gown placed, fresh lines on bed. Skin assessed and intact, buttock clean dry and intact no redness noted. Pt resting asleep in hospital bed at this time. Will continue to monitor.
--- NOTE | 2021-06-15 01:10 | PC.NURSE ---
This RN at bedside while Ivette Perez RN medicated pt with dilaudid for pain control. Ivette disposed of dilaudid into sharps bin prior to scanning medications.
--- NOTE | 2021-06-15 01:18 | PC.NURSE ---
Pt with purewick in place as pt was previously wearing a brief and pt with significant pain upon movement for either bedpan or stand/pivot to commode. Pericare provided to patient prior to purewick placement with hopes of having clean catch urine sample.
[2021-06-15 01:55] LABS: Glucose, Whole Blood 182 mg/dL (60-115)
[2021-06-15 01:56] LABS: Appearance Urine CLEAR; Color Urine YELLOW; Glucose Urine UA NEG (NEG); Leukocyte Esterase Urine TRACE (NEG); Nitrite Urine POS (NEG); PH 6.5 (5.0-8.0); Specific Gravity - Urine <= 1.005 (1.005-1.025); UACC Culture Trigger YES; Urine Blood NEG (NEG); Urine Ketones NEG (NEG); Urine Protein NEG (NEG-TRACE)
[2021-06-15 02:03] LABS: Bacteria Urine 3+ /LPF; Calcium Phosphate Crystals Ur TRACE /LPF; RBC Urine 0 /HPF (0); Squamous Epithelial Cell Urine 2+ /LPF
--- NOTE | 2021-06-15 02:21 | PC.NURSE ---
Dr Correia made aware of pt's UA results.
[2021-06-15] MEDS: Albumin Human 25 % 100 ML IV (02:45)
--- NOTE | 2021-06-15 02:50 | PC.NURSE ---
Dr Pollard made aware of pt's POC glucose 182, per Latrice, no coverage indicated at this time. Pt's POC to be assessed again in AM per orders and pt to be medicated at that time per protocol.
--- NOTE | 2021-06-15 06:00 | PC.NURSE ---
Dr Pollard made aware of pt's BP
[2021-06-15 07:11] LABS: Blood Urea Nitrogen 9 mg/dL (9-16); Creatinine Clr Calc Pharmacy 91.3; Estimated Glomerular Filt Rate > 60; Glucose Random 184 mg/dL (60-115)
--- NOTE | 2021-06-15 07:11 | P.HPHOSP_ITS ---
[facility] Medical History Cirrhosis Diabetes (~01/31/21) HTN (hypertension) Family History Mother No problems noted. Father No problems noted. Social History Household Members: Children Housing: House Do you presently have visiting nurse or other home services: No Alcohol intake: never Patient Tobacco Use Status: Never used Tobacco Advance Directives: No Advance Directives Information Provided: No Patient : No service: No Current occupational status: disabled Meds Allergies Allergy/AdvReac Type Severity Reaction Status Date / Time No Known Allergies Allergy Verified 09/19/20 09:26 [No Known Allergies*] Active Medications: Current Medications Carvedilol (Carvedilol 3.125 Mg Tablet) 3.125 mg PO BID [facility]; Protocol Last Admin: 06/14/21 21:34 Dose: Not Given Documented by: Dextrose (Dextrose 50 % 25 Gm/50 Ml Vial) 25 gm IVPUSH Q15M PRN; Protocol PRN Reason: per Hypoglycemia Standing Ord. Ferrous Sulfate (Ferrous Sulfate 324 Mg Tablet.Dr) 324 mg PO DAILY [facility] Furosemide (Furosemide 20 Mg Tablet) 20 mg PO DAILY [facility]; Protocol Glucose (Glucose Gel 15 Gm Gel..Gram.) 15 gm PO Q15M PRN; Protocol PRN Reason: per Hypoglycemia Standing Ord. Hydromorphone HCl (Hydromorphone Hcl 0.5 Mg/0.5 Ml Syringe) 0.5 mg IVPUSH Q4H PRN; Protocol PRN Reason: Pain, Severe (Pain Scale 7-10) Last Admin: 06/15/21 00:57 Dose: 0.5 mg Documented by: Ceftriaxone Sodium 1 gm/ (Sodium Chloride) 50 mls @ 100 mls/hr IV Q24H [facility] Insulin Human Lispro (Insulin Lispro 100 Unit/Ml 3 Ml Vial) 0 unit SUBCUT QIDACHS [facility]; Protocol Melatonin (Melatonin 3 Mg Tablet) 6 mg PO BEDTIME PRN PRN Reason: Insomnia Pharmacy Consult (Consult Rx Perform Med Rec) 1 each MISCELLANE ONCE PRN PRN Reason: Consult order Polyethylene Glycol (Polyethylene Glycol 3350 17 Gm Powd.Pack) 17 gm PO DAILY PRN PRN Reason: Constipation Senna (Sennosides 8.6 Mg Tablet) 17.2 mg PO BEDTIME PRN PRN Reason: Constipation Sodium Chloride (0.9 % Sodium Chloride Flush 3 Ml Syringe) 3 ml IVFLUSH QSMAFT [facility] Last Admin: 06/15/21 00:58 Dose: 3 ml Documented by: Spironolactone (Spironolactone 25 Mg Tablet) 25 mg PO DAILY [facility]; Protocol Home Medications Medication Instructions Recorded Confirmed Last Taken Type ferrous sulfate 325 mg (65 mg 325 mg PO DAILY 09/05/20 06/14/21 06/14/21 History iron) tablet furosemide 20 mg tablet 20 mg PO DAILY 09/05/20 06/14/21 06/14/21 History spironolactone 25 mg tablet 25 mg PO DAILY tab 09/05/20 06/14/21 06/14/21 History insulin glargine 100 unit/mL (3 100 unit SUBCUT TU 05/18/21 06/14/21 06/14/21 History mL) subcutaneous pen polyethylene glycol 3350 17 17 g PO DAILY PRN 06/09/21 06/14/21 06/14/21 History gram/dose oral powder (Gavilax) sennosides 8.6 mg-docusate sodium 1 tab PO DAILY 06/09/21 06/14/21 06/14/21 History 50 mg tablet (Senna Plus) cephalexin 500 mg capsule 1 cap PO TID 06/14/21 06/14/21 06/14/21 History Physical Exam Vital Signs and Narrative: Vital Signs: Last Vital Signs Temp 97.9 F 06/15/21 03:48 Pulse 76 06/15/21 06:19 Resp 12 06/15/21 06:19 BP 99/54 L 06/15/21 06:19 Pulse Ox 95 06/15/21 06:19 Body Mass Index 33.6 Results Labs CBC and Chem 7: 06/14/21 15:24 06/14/21 15:24 Labs: Laboratory Results - last 24 hr 06/14/21 06/14/21 06/14/21 15:24 15:24 15:24 MCV 100.6 H MCH 33.6 H MCHC 33.4 RDW 15.3 Plt Count 153 L MPV 9.7 Immature Gran % (Auto) 0.5 H Neut % (Auto) 70.9 Lymph % (Auto) 18.5 L [place] % (Auto) 9.8 Eos % (Auto) 0.0 Baso % (Auto) 0.3 Lymph # (Auto) 1.2 [place] # (Auto) 0.7 Eos # (Auto) 0.0 Baso # (Auto) 0.0 Abs Immat Gran (auto) 0.03 Absolute Neuts (auto) 4.7 Absolute Nucleated RBC 0.000 Nucleated RBC % (auto) 0.0 PT 14.4 H INR 1.3 H APTT 30.3 Anion Gap 9 L Estim Creat Clear Calc 73.0 Estimated GFR > 60 POC Glucose Random Glucose 241 H Lactic Acid Lactic Acid Fup @ 2Hr Lactic Acid Fup @ 4Hr Calcium 8.1 L Total Bilirubin 0.9 AST 30 ALT 16 Alkaline Phosphatase 112 Total Protein 6.2 L D Albumin 2.4 L Lipase 66 Urine Color Urine Appearance Urine pH Ur Specific [place] Urine Protein Urine Glucose (UA) Urine Ketones Urine Blood Urine Nitrite Ur Leukocyte Esterase Urine RBC Urine WBC Ur Squamous Epith Cells Calcium Phosphate Cryst Urine Bacteria Urine Yeast Peritoneal WBC Peritoneal RBC Periton Neutrophils Periton Lymphocytes Peritoneal Monocytes Peritoneal Other Cells COVID-19 ([facility]) [place] 06/14/21 06/14/21 06/14/21 15:24 15:24 17:51 MCV MCH MCHC RDW Plt Count MPV Immature Gran % (Auto) Neut % (Auto) Lymph % (Auto) [place] % (Auto) Eos % (Auto) Baso % (Auto) Lymph # (Auto) [place] # (Auto) Eos # (Auto) Baso # (Auto) Abs Immat Gran (auto) Absolute Neuts (auto) Absolute Nucleated RBC Nucleated RBC % (auto) PT INR APTT Anion Gap Estim Creat Clear Calc Estimated GFR POC Glucose Random Glucose Lactic Acid 2.2 H* Lactic Acid Fup @ 2Hr 2.3 H* Lactic Acid Fup @ 4Hr Calcium Total Bilirubin AST ALT Alkaline Phosphatase Total Protein Albumin Lipase Urine Color Urine Appearance Urine pH Ur Specific [place] Urine Protein Urine Glucose (UA) Urine Ketones Urine Blood Urine Nitrite Ur Leukocyte Esterase Urine RBC Urine WBC Ur Squamous Epith Cells Calcium Phosphate Cryst Urine Bacteria Urine Yeast Peritoneal WBC Peritoneal RBC Periton Neutrophils Periton Lymphocytes Peritoneal Monocytes Peritoneal Other Cells COVID-19 ([facility]) Negative [employer] Clin Com See Note 06/14/21 06/14/21 06/14/21 20:17 20:40 23:30 MCV MCH MCHC RDW Plt Count MPV Immature Gran % (Auto) Neut % (Auto) Lymph % (Auto) [place] % (Auto) Eos % (Auto) Baso % (Auto) Lymph # (Auto) [place] # (Auto) Eos # (Auto) Baso # (Auto) Abs Immat Gran (auto) Absolute Neuts (auto) Absolute Nucleated RBC Nucleated RBC % (auto) PT INR APTT Anion Gap Estim Creat Clear Calc Estimated GFR POC Glucose 187 H Random Glucose Lactic Acid Lactic Acid Fup @ 2Hr Lactic Acid Fup @ 4Hr 2.2 H* Calcium Total Bilirubin AST ALT Alkaline Phosphatase Total Protein Albumin Lipase Urine Color Urine Appearance Urine pH Ur Specific [place] Urine Protein Urine Glucose (UA) Urine Ketones Urine Blood Urine Nitrite Ur Leukocyte Esterase Urine RBC Urine WBC Ur Squamous Epith Cells Calcium Phosphate Cryst Urine Bacteria Urine Yeast Peritoneal WBC 0.117 Peritoneal RBC < 0.002 [place] Neutrophils 18 [place] Lymphocytes 59 Peritoneal Monocytes 11 Peritoneal Other Cells 12 COVID-19 ([facility]) COVID-19 [employer] 06/15/21 06/15/21 01:51 01:51 MCV MCH MCHC RDW Plt Count MPV Immature Gran % (Auto) Neut % (Auto) Lymph % (Auto) [place] % (Auto) Eos % (Auto) Baso % (Auto) Lymph # (Auto) [place] # (Auto) Eos # (Auto) Baso # (Auto) Abs Immat Gran (auto) Absolute Neuts (auto) Absolute Nucleated RBC Nucleated RBC % (auto) PT INR APTT Anion Gap Estim Creat Clear Calc Estimated GFR POC Glucose 182 H Random Glucose Lactic Acid Lactic Acid Fup @ 2Hr Lactic Acid Fup @ 4Hr Calcium Total Bilirubin AST ALT Alkaline Phosphatase Total Protein Albumin Lipase Urine Color YELLOW Urine Appearance CLEAR Urine pH 6.5 Ur Specific [place] <= 1.005 Urine Protein NEG Urine Glucose (UA) NEG Urine Ketones NEG Urine Blood NEG Urine Nitrite POS H Ur Leukocyte Esterase TRACE H Urine RBC 0 Urine WBC 10-14 H Ur Squamous Epith Cells 2+ Calcium Phosphate Cryst TRACE Urine Bacteria 3+ Urine Yeast 2+ Peritoneal WBC Peritoneal RBC Periton Neutrophils Periton Lymphocytes Peritoneal Monocytes Peritoneal Other Cells COVID-19 ([facility]) COVID-19 [facility] Com Imaging Radiologist's Impressions: Impressions Abdomen/Pelvis CT 06/14/21 17:30 IMPRESSION: Exam is felt to be similar to previous. Moderate abdominal pelvic ascites mildly increased in the upper abdomen from previous. Superimposed infection cannot be excluded but no air bubbles are seen within the ascites Mild thickening of the small bowel wall. Enteritis would be a consideration. This may be reactive to fluid Once again cirrhosis of the liver. Cholelithiasis is noted. Quality Stroke Does the patient have a stroke diagnosis?: No VTE Prior VTE?: No VTE Risk Level:: Medical - low VTE Device Contraindication: N/A - Device Ordered VTE Drug Contraindication: Treatment Not Indicated
[2021-06-15 07:26] LABS: Anion Gap 10 (12-20); Calcium 7.3 mg/dL (8.4-10.2); Carbon Dioxide 28 mmol/L (22-29); Chloride 101 mmol/L (96-108); Potassium 3.4 mmol/L (3.3-5.1); Sodium 136 mmol/L (135-145)
--- NOTE | 2021-06-15 07:29 | PC.NURSE ---
sO2 dropping to 88 while asleep. Increased easily when awake. Awakes to light touch. Pt requesting foods. reminded of NPO status. Holding right side of abd and crying with pain once awake.
[2021-06-15 07:40] LABS: Glucose, Whole Blood 179 mg/dL (60-115)
--- NOTE | 2021-06-15 07:52 | PC.NURSE ---
medicated for right sided abd pain. reports that pain originates from site of needle insertion. NSR on monitor. axox3. unlabored resp. skin pwd. LS CTA. awaits bed on [place] floor. aware that she is NPO. 9am meds held.
[2021-06-15 07:58] LABS: Basophils Percent Auto 0.5 % (0-2); Hematocrit 33.9 % (37-47); Hemoglobin 11.3 g/dl (12.0-16.0); Imm Gran Abs Auto 0.04 X10*3/uL (0.00-0.03); Imm Gran Pct Auto 0.7 % (0.0-0.4); Lymphocytes Absolute Auto 1.3 X10*3/uL (1.2-4.9); Lymphocytes Percent Auto 22.8 % (20-40); Mean Corpuscular HGB Conc 33.3 g/dl (31.0-35.0); Mean Corpuscular Hemoglobin 33.2 pg (27.0-33.0); Mean Corpuscular Volume 99.7 fL (80-98); Monocytes Absolute Auto 0.7 X10*3/uL (0.1-1.2); Monocytes Percent Auto 12.1 % (2-11); Neutrophils Absolute Auto 3.7 X10*3/uL (2.0-8.3); Neutrophils Percent Auto 63.9 % (45-73); Platelet Count 122 X10*3/uL (160-400); Red Cell Distribution Width 15.3 % (11.0-16.0); White Blood Count 5.8 X10*3/uL (4.8-10.8)
[2021-06-15 08:22] LABS: MANUAL DIFF FLAG NO
--- NOTE | 2021-06-15 08:38 | PC.NURSE ---
Pericare provided. folds of labia are red and tender. barrier cream applied. pt has plus 3 pitting edema up to thighs and even in lower abd. pt crying with movement. no skin breakdown on buttocks. pt declining offer to reposition off of coccyx d/t pain. tray provided.
[2021-06-15] MEDS: Spironolactone 25 MG TABLET PO (09:38)
[2021-06-15] MEDS: Furosemide 20 MG TABLET PO (09:39)
--- NOTE | 2021-06-15 09:42 | PC.NURSE ---
rn to rn with yi.
--- NOTE | 2021-06-15 11:14 | HO.PM.IMPN ---
Subjective Subjective Date of Service: 06/15/21 Interval History: cc: abd pain interval history: still with pain Cardiovascular Cardiovascular: Reports no additional cardiovascular complaints Respiratory Respiratory: Reports no additional respiratory complaints Physical Exam Vital Signs: Vital Signs: Last Vital Signs Temp 97.8 F 06/15/21 10:55 Pulse 82 06/15/21 10:55 Resp 18 06/15/21 10:55 BP 106/61 06/15/21 10:55 Pulse Ox 97 06/15/21 10:55 Body Mass Index 33.6 General: AO X 3, in acute distress, anasarca Resp: CTA bilateral, no accessory muscles used CVS: S1,S2,RRR, GI: soft, tender, distended Neuro: motor grossly intact, alert Psych: appropriate affect, appropriate insight Objective Data Active Medications Carvedilol (Carvedilol 3.125 Mg Tablet) 3.125 mg PO BID [facility]; Protocol Last Admin: 06/14/21 21:34 Dose: Not Given Documented by: KATHERINE Non-Admin Reason: low BP related to paracentesis Dextrose (Dextrose 50 % 25 Gm/50 Ml Vial) 25 gm IVPUSH Q15M PRN; Protocol PRN Reason: per Hypoglycemia Standing Ord. Ferrous Sulfate (Ferrous Sulfate 324 Mg Tablet.Dr) 324 mg PO DAILY [facility] Last Admin: 06/15/21 09:40 Dose: Not Given Documented by: TYLER Non-Admin Reason: Patient Refused Furosemide (Furosemide 20 Mg Tablet) 20 mg PO DAILY [facility]; Protocol Glucose (Glucose Gel 15 Gm Gel..Gram.) 15 gm PO Q15M PRN; Protocol PRN Reason: per Hypoglycemia Standing Ord. Hydromorphone HCl (Hydromorphone Hcl 0.5 Mg/0.5 Ml Syringe) 0.5 mg IVPUSH Q4H PRN; Protocol PRN Reason: Pain, Severe (Pain Scale 7-10) Last Admin: 06/15/21 07:51 Dose: 0.5 mg Documented by: ROGE Ceftriaxone Sodium 1 gm/ (Sodium Chloride) 50 mls @ 100 mls/hr IV Q24H [facility] Insulin Human Lispro (Insulin Lispro 100 Unit/Ml 3 Ml Vial) 0 unit SUBCUT QIDACHS [facility]; Protocol Last Admin: 06/15/21 07:51 Dose: Not Given Documented by: ROGE Non-Admin Reason: NPO Melatonin (Melatonin 3 Mg Tablet) 6 mg PO BEDTIME PRN PRN Reason: Insomnia Pharmacy Consult (Consult Rx Perform Med Rec) 1 each MISCELLANE ONCE PRN PRN Reason: Consult order Polyethylene Glycol (Polyethylene Glycol 3350 17 Gm Powd.Pack) 17 gm PO DAILY PRN PRN Reason: Constipation Senna (Sennosides 8.6 Mg Tablet) 17.2 mg PO BEDTIME PRN PRN Reason: Constipation Sodium Chloride (0.9 % Sodium Chloride Flush 3 Ml Syringe) 3 ml IVFLUSH QSHIFT [facility] Last Admin: 06/15/21 07:51 Dose: 3 ml Documented by: ROGE Spironolactone (Spironolactone 25 Mg Tablet) 25 mg PO DAILY [facility]; Protocol Labs CBC & Chem 7: 06/15/21 07:31 06/15/21 06:28 Labs: Laboratory Results - last 24 hr 06/14/21 06/14/21 06/14/21 15:24 15:24 15:24 MCV 100.6 H MCH 33.6 H MCHC 33.4 RDW 15.3 Plt Count 153 L MPV 9.7 Immature Gran % (Auto) 0.5 H Neut % (Auto) 70.9 Lymph % (Auto) 18.5 L [place] % (Auto) 9.8 Eos % (Auto) 0.0 Baso % (Auto) 0.3 Lymph # (Auto) 1.2 [place] # (Auto) 0.7 Eos # (Auto) 0.0 Baso # (Auto) 0.0 Abs Immat Gran (auto) 0.03 Absolute Neuts (auto) 4.7 Absolute Nucleated RBC 0.000 Nucleated RBC % (auto) 0.0 PT 14.4 H INR 1.3 H APTT 30.3 Anion Gap 9 L Estim Creat Clear Calc 73.0 Estimated GFR > 60 POC Glucose Random Glucose 241 H Lactic Acid Lactic Acid Fup @ 2Hr Lactic Acid Fup @ 4Hr Calcium 8.1 L Total Bilirubin 0.9 AST 30 ALT 16 Alkaline Phosphatase 112 Total Protein 6.2 L D Albumin 2.4 L Lipase 66 Urine Color Urine Appearance Urine pH Ur Specific [place] Urine Protein Urine Glucose (UA) Urine Ketones Urine Blood Urine Nitrite Ur Leukocyte Esterase Urine RBC Urine WBC Ur Squamous Epith Cells Calcium Phosphate Cryst Urine Bacteria Urine Yeast Peritoneal WBC Peritoneal RBC Periton Neutrophils [place] Lymphocytes Peritoneal Monocytes Peritoneal Other Cells COVID-19 ([facility]) COVID-19 Clin Com 06/14/21 06/14/21 06/14/21 15:24 15:24 17:51 MCV MCH MCHC RDW Plt Count MPV Immature Gran % (Auto) Neut % (Auto) Lymph % (Auto) [place] % (Auto) Eos % (Auto) Baso % (Auto) Lymph # (Auto) [place] # (Auto) Eos # (Auto) Baso # (Auto) Abs Immat Gran (auto) Absolute Neuts (auto) Absolute Nucleated RBC Nucleated RBC % (auto) PT INR APTT Anion Gap Estim Creat Clear Calc Estimated GFR POC Glucose Random Glucose Lactic Acid 2.2 H* Lactic Acid Fup @ 2Hr 2.3 H* Lactic Acid Fup @ 4Hr Calcium Total Bilirubin AST ALT Alkaline Phosphatase Total Protein Albumin Lipase Urine Color Urine Appearance Urine pH Ur Specific [place] Urine Protein Urine Glucose (UA) Urine Ketones Urine Blood Urine Nitrite Ur Leukocyte Esterase Urine RBC Urine WBC Ur Squamous Epith Cells Calcium Phosphate Cryst Urine Bacteria Urine Yeast Peritoneal WBC Peritoneal RBC Periton Neutrophils Periton Lymphocytes Peritoneal Monocytes Peritoneal Other Cells COVID-19 ([facility]) Negative COVID-19 Clin Com See Note 06/14/21 06/14/21 06/14/21 20:17 20:40 23:30 MCV MCH MCHC RDW Plt Count MPV Immature Gran % (Auto) Neut % (Auto) Lymph % (Auto) [place] % (Auto) Eos % (Auto) Baso % (Auto) Lymph # (Auto) [place] # (Auto) Eos # (Auto) Baso # (Auto) Abs Immat Gran (auto) Absolute Neuts (auto) Absolute Nucleated RBC Nucleated RBC % (auto) PT INR APTT Anion Gap Estim Creat Clear Calc Estimated GFR POC Glucose 187 H Random Glucose Lactic Acid Lactic Acid Fup @ 2Hr Lactic Acid Fup @ 4Hr 2.2 H* Calcium Total Bilirubin AST ALT Alkaline Phosphatase Total Protein Albumin Lipase Urine Color Urine Appearance Urine pH Ur Specific [place] Urine Protein Urine Glucose (UA) Urine Ketones Urine Blood Urine Nitrite Ur Leukocyte Esterase Urine RBC Urine WBC Ur Squamous Epith Cells Calcium Phosphate Cryst Urine Bacteria Urine Yeast Peritoneal WBC 0.117 Peritoneal RBC < 0.002 [place] Neutrophils 18 [place] Lymphocytes 59 Peritoneal Monocytes 11 Peritoneal Other Cells 12 COVID-19 ([facility]) COVID-19 Clin Com 06/15/21 06/15/21 06/15/21 01:51 01:51 06:28 MCV MCH MCHC RDW Plt Count MPV Immature Gran % (Auto) Neut % (Auto) Lymph % (Auto) [place] % (Auto) Eos % (Auto) Baso % (Auto) Lymph # (Auto) [place] # (Auto) Eos # (Auto) Baso # (Auto) Abs Immat Gran (auto) Absolute Neuts (auto) Absolute Nucleated RBC Nucleated RBC % (auto) PT INR APTT Anion Gap 10 L Estim Creat Clear Calc 91.3 Estimated GFR > 60 POC Glucose 182 H Random Glucose 184 H Lactic Acid Lactic Acid Fup @ 2Hr Lactic Acid Fup @ 4Hr Calcium 7.3 L D Total Bilirubin AST ALT Alkaline Phosphatase Total Protein Albumin Lipase Urine Color YELLOW Urine Appearance CLEAR Urine pH 6.5 Ur Specific [place] <= 1.005 Urine Protein NEG Urine Glucose (UA) NEG Urine Ketones NEG Urine Blood NEG Urine Nitrite POS H Ur Leukocyte Esterase TRACE H Urine RBC 0 Urine WBC 10-14 H Ur Squamous Epith Cells 2+ Calcium Phosphate Cryst TRACE Urine Bacteria 3+ Urine Yeast 2+ Peritoneal WBC Peritoneal RBC Periton Neutrophils Periton Lymphocytes Peritoneal Monocytes Peritoneal Other Cells COVID-19 ([facility]) COVID-19 Clin Com 06/15/21 06/15/21 07:31 07:36 MCV 99.7 H MCH 33.2 H MCHC 33.3 RDW 15.3 Plt Count 122 L MPV 10.0 Immature Gran % (Auto) 0.7 H Neut % (Auto) 63.9 Lymph % (Auto) 22.8 [place] % (Auto) 12.1 H Eos % (Auto) 0.0 Baso % (Auto) 0.5 Lymph # (Auto) 1.3 [place] # (Auto) 0.7 Eos # (Auto) 0.0 Baso # (Auto) 0.0 Abs Immat Gran (auto) 0.04 H Absolute Neuts (auto) 3.7 Absolute Nucleated RBC 0.000 Nucleated RBC % (auto) 0.0 PT INR APTT Anion Gap Estim Creat Clear Calc Estimated GFR POC Glucose 179 H Random Glucose Lactic Acid Lactic Acid Fup @ 2Hr Lactic Acid Fup @ 4Hr Calcium Total Bilirubin AST ALT Alkaline Phosphatase Total Protein Albumin Lipase Urine Color Urine Appearance Urine pH Ur Specific [place] Urine Protein Urine Glucose (UA) Urine Ketones Urine Blood Urine Nitrite Ur Leukocyte Esterase Urine RBC Urine WBC Ur Squamous Epith Cells Calcium Phosphate Cryst Urine Bacteria Urine Yeast Peritoneal WBC Peritoneal RBC Periton Neutrophils Periton Lymphocytes Peritoneal Monocytes Peritoneal Other Cells COVID-19 ([facility]) COVID-19 Clin Com Microbiology Microbiology Results: Microbiology 06/14/21 20:44 Gram Stain - Final Abdominal Fluid Routine Culture - Preliminary No growth to date. Anaerobic Culture - Preliminary No growth to date. 06/14/21 15:24 Blood Culture - Preliminary Blood - Venous Prelim: GNR Gram Stain only Assessment and Plan (1) Abdominal pain: Status: Acute (2) Ascites: Status: Acute Assessment and Plan: 55F presented with abdominal pain etoh liver cirrhosis with refractory painful ascites s/p paracentesis, PMN<250, fluid culture no growth, blood culture 1/2 GNR empiric rocpehin lasix, aldactone gi eval, ID eval follow up final cultures hold coreg for relative hypotension GNR bacteremia source GI vs uti continue rocpehin, follow up cultures DM insulin monitor poc dvt prophylaxis - lovenox Quality Stroke Does the patient have a stroke diagnosis?: No VTE Prior VTE?: No VTE Risk Level:: Medical - low VTE Device Contraindication: N/A - Device Ordered VTE Drug Contraindication: Treatment Not Indicated
--- NOTE | 2021-06-15 11:52 | PC.NURSE ---
Skin assessment completed. Patient has 2 small bandages from parencentesis. Also has redness and tenderness in periarea. Barrier cream applied. No other skin issues noted at this time.
[2021-06-15 11:58] LABS: Glucose, Whole Blood 255 mg/dL (60-115)
[2021-06-15] MEDS: Enoxaparin Sodium 40 MG/0.4 ML SYRINGE SUBCUT (12:00)
[2021-06-15] MEDS: Insulin Lispro 100 UNIT/ML 3 ML VIAL SUBCUT ×3 (12:12→22:29)
--- NOTE | 2021-06-15 12:49 | ECG_ITS ---
Test Reason : chest pain Blood Pressure : / mmHG Vent. Rate : 111 BPM Atrial Rate : 111 BPM P-R Int : 132 ms QRS Dur : 066 ms QT Int : 326 ms P-R-T Axes : 026 015 015 degrees QTc Int : 443 ms Sinus tachycardia Nonspecific T wave abnormality Borderline ECG When compared with ECG of 14-JUN-2021 15:01, No significant change was found Referred By: Eliel Martinez Electronically Signed By:AVERY CHASE MD
[2021-06-15] MEDS: LORazepam 2 MG/ML VIAL 1 MG IVPUSH (12:52)
[2021-06-15] MEDS: ondansetron HCL 4 MG/2 ML VIAL IVPUSH (12:52)
--- NOTE | 2021-06-15 13:56 | PC.NURSE ---
1240 crying, stating she can't breath. clutching at chest. coughing, gasping for breath. Face flushed. HR 120's. Rapid Response called. EKG for CP IV ativan for anxiety with good eff. Zofran also given
[2021-06-15] MEDS: cefTRIAXone sodium 1 GM in 0.9 % Sodium Chloride 50 ML IV (15:59)
[2021-06-15 16:47] LABS: Glucose, Whole Blood 161 mg/dL (60-115)
--- NOTE | 2021-06-15 17:50 | PM.EVENT ---
Event Note Date of Service: 06/15/21 Event Note: GI Consult-Full note dictated. Hx from patient, daughter, and EMR. Imp: 55 yo female with an underlying history of cirrhosis and ascites presumably in relation to EtOH use and fatty liver. She has reportedly not used any EtOH recently other than very rare drinks. She had an otherwise negative liver w/u [place] [address] Cabral as an outpatient. She has been having periodic paracenteses with studies negative for SBP. She has been having rather generalized abdominal pain, perhaps R>L. She was just discharged a few days ago, but [facility]. She was found to have 1 out of 2 blood cultures + for a GNR. Her ascites cell count, gram stain, and culture have not been c/w SBP as yet. She does have gallstones, but there is no report of biliary disease on the CT and her LFT's are normal. She has had no sign of GI bleeding nor encephalopathy. Her abdomen is distended with ascites and with somewhat diffuse tenderness, perhaps R>L. Rec: Based on her ascites analysis with a low WBC count and low percentage of PMN's, as well as a negative Gram stain and culture thus far, her GNR sepsis is most likely not related to SBP. Await final blood culture report and the ID consult's thoughts. It will be important to exclude any other source such as Gall bladder/biliary, , or pulmonary. I shall order a RUQ U/S to better evaluate the CBD and GB. If the CBD appears abnormal with dilatation and/or suspicion of a stone, she would then need a MRCP and/or an ERCP.. I would otherwise continue supportive care with antibiotics and F/U labs. Given her relatively young age and advanced liver disease , she may benefit from an outpatient evaluation at [facility]. She and her daughter report that they think she has a F/U appt with her liver doctor(? Dr. Cabral) in the near future. D/W patient and her daughter in detail. Thanks
[2021-06-15] MEDS: Spironolactone 25 MG TABLET 50 MG PO (21:01)
[2021-06-15 21:31] LABS: Glucose, Whole Blood 397 mg/dL (60-115)
[2021-06-16] MEDS: 0.9 % Sodium Chloride Flush 3 ML SYRINGE IVFLUSH ×3 (00:06→17:24)
--- NOTE | 2021-06-16 02:56 | CONS_ITS ---
DATE OF SERVICE: 06/15/2021 REQUESTING PHYSICIAN: Dr. Martinez. REASON FOR CONSULTATION: Cirrhosis, ascites, and gram-negative aster sepsis. HISTORY OF PRESENT ILLNESS: This has been obtained for the patient, her daughter, and the medical record. The patient is a 55-year-old female with underlying cirrhosis and ascites. She appears to have had some history of alcohol use in the past, but not recently. She also has underlying diabetes. Previous liver workup appears to have been negative in [address] Cabral as an outpatient including autoimmune, laboratories, iron studies, and viral serologies. She has been requiring periodic paracenteses and fluid analysis thus far has been negative for any sign of spontaneous bacterial peritonitis based on cell counts and cultures. She was just here a few days ago when she was admitted on June 09 and seen in consultation by Dr. Mesa on June 10. At that time, the issue was that of ascites for which she underwent a paracentesis. She was treated with diuretics. She was discharged on June 13 to the intermediate. However, she returned here yesterday due to abdominal pain. She denies any vomiting. Her abdominal pain seems to be rather diffuse in nature, although perhaps more so on the right side. She has been eating without any exacerbation of the pain. There has been no reported melena, nor hematochezia. Thus far on admission, she has been afebrile with otherwise stable vital signs. Her workup with blood cultures yesterday has revealed 1/2 blood cultures positive for gram-negative rods. She had negative blood cultures on June 09 and a negative urine culture for any specific organism on June 09, but did show greater than 100,000 mixed bacterial soren in the culture consistent with probable contamination. Since admission here, she has had no signs of GI bleeding. She has been afebrile. CURRENT MEDICATIONS: Include carvedilol, IV ceftriaxone, Lovenox, iron, Lasix 20 mg daily p.o. insulin, Ativan p.r.n., melatonin p.r.n., morphine p.r.n., Zofran p.r.n., MiraLAX p.r.n., Senokot p.r.n., and Aldactone 25 mg daily. PAST MEDICAL HISTORY: Cirrhosis and ascites as above with a negative liver workup in 2019. She did require surgical debridement of a necrotic ulcer in the right inner thigh and/or perineal area by Dr. Ash in 2019. She denies any other surgeries. She does have insulin-dependent diabetes mellitus. Cirrhosis and ascites as above. There is no reported history of MO, stroke, nor lung disease. SOCIAL HISTORY: She does not smoke. She has not used any significant amounts of alcohol for years , although does have an occasional drink according to the patient and her daughter. FAMILY HISTORY: Noncontributory. REVIEW OF SYSTEMS: CONSTITUTIONAL: She has been feeling relatively poorly due to fatigue and the abdominal discomfort. SKIN: No rash. No pruritus. CARDIAC: No chest pain. PULMONARY: No coughing or hemoptysis. GI: As above. PHYSICAL EXAMINATION: GENERAL: The patient is alert, chronically ill-appearing female, but in no distress. She has been afebrile. SKIN: Warm and dry. HEENT: Anicteric sclerae. CHEST: Clear. CARDIAC: Normal S1, S2. ABDOMEN: Soft, but distended with probable ascites. There is some mild diffuse tenderness, perhaps more so on the right than the left. LABORATORY DATA: Gram-negative aster found in 1 of 2 blood cultures as mentioned above. Her CT scan from yesterday describes cirrhosis, but without any obvious lesion. There was some moderate amount of ascites. Gallstones were noted, but there was no other description of the gallbladder. Pancreas was unremarkable, spleen was unremarkable and kidneys were unremarkable. There was no sign of any GI tract pathology. Her most recent paracentesis on June 12 removed approximately 3.5 L of fluid. A chest x-ray on June 09 was negative. White blood cell count yesterday was 6.7, today is 5.8. Hemoglobin stable at 11.2 yesterday and 11.3 today. Platelets 122,000 today. PT 14.4 with INR 1.3 today. Normal electrolytes. BUN 9, creatinine 0.8 today. She did have a lactate level that was elevated at 2.3 on admission. Her LFTs on June 14 showed an albumin 2.4, total bilirubin 0.9. AST 30, ALT 16, and alkaline phosphatase 112. Lipase was 66. Her LFTs over the last few days have basically been in the completely normal range. IMPRESSION: In regard to the patient's cirrhosis and ascites, this appears to be most likely related to possibly some previous alcohol use as well as a probable component of fatty liver in relation to her diabetes. The workup in 2019 was otherwise negative in regard to her liver disease. From the standpoint of her liver disease, I would continue supportive care, diuretics, and close following of her renal function, and paracenteses as needed for comfort. Given her relatively young age, I would consider eventual referral to a liver transplant center, such as [facility] in [place] for their evaluation. She may have had a history of heavy alcohol use in the past, but it does not appear that she has been using any significant amount of alcohol now for quite some time. In regard to the gram-negative aster sepsis, I do not think this is related to spontaneous bacterial peritonitis given the ascites analysis with both the low total white blood cell count and the low cell count differential as far as the number of polys are concerned. Given her known gallstones and some abdominal pain, although it is rather diffuse and hard to exactly know where it hurts her most, I would recommend an abdominal ultrasound of the right upper quadrant to further inspect the gallbladder and biliary tree. If there is any suspicion of a common duct stone with bile duct dilatation and/or visualization of the stone, she may need further treatment and evaluation with ERCP and/or MRCP. She does have an Infectious Disease consult pending and that could be helpful in determining where the gram-negative aster sepsis is from as well. At this point, I would otherwise continue supportive care. She should avoid all blood thinners while here in the hospital and in general at home. She should not use any aspirin or NSAIDs. This has been discussed with the patient and her daughter. MD TYSON Mcgovern/LYNDSEY / [id number] MTDD
[2021-06-16 04:00] VITALS: BP 107/55; PULSE 88; RESP 18; TEMP 36.8; O2SAT 98
[2021-06-16] MEDS: LORazepam 2 MG/ML VIAL 1 MG IVPUSH (05:26)
[2021-06-16 06:51] LABS: Hematocrit 30.6 % (37-47); Hemoglobin 10.3 g/dl (12.0-16.0); Mean Corpuscular HGB Conc 33.7 g/dl (31.0-35.0); Mean Corpuscular Hemoglobin 33.8 pg (27.0-33.0); Mean Corpuscular Volume 100.3 fL (80-98); NRBC Pct Auto 0.4 /100WBC (0.0-0.2); PLT CLUMP 1; Red Blood Count 3.05 X10*6/uL (4.20-5.50); Red Cell Distribution Width 15.2 % (11.0-16.0)
[2021-06-16 06:53] LABS: Ammonia 61 umol/L (13-55)
[2021-06-16 06:58] LABS: INTERNATIONAL NORM RATIO 1.4 (0.9-1.1); Prothrombin Time 16.2 SEC (9.9-13.0)
[2021-06-16 07:11] LABS: Platelet Count 122 X10*3/uL (160-400); White Blood Count 4.8 X10*3/uL (4.8-10.8)
[2021-06-16 07:17] LABS: Alanine Aminotransferase 13 U/L (0-31); Albumin Level 2.1 g/dL (3.5-5.0); Alkaline Phosphatase 72 U/L (39-117); Anion Gap 9 (12-20); Aspartate Amino Transferase 24 U/L (5-31); Bilirubin Direct 0.5 mg/dL (0.0-0.5); Bilirubin Total 0.8 mg/dL (0.0-1.0); Blood Urea Nitrogen 11 mg/dL (9-16); Calcium 7.2 mg/dL (8.4-10.2); Carbon Dioxide 30 mmol/L (22-29); Chloride 101 mmol/L (96-108); Creatinine Clr Calc Pharmacy 79.7; Estimated Glomerular Filt Rate > 60; Glucose Fasting 339 mg/dL (60-99); Magnesium 1.7 mg/dL (1.6-2.6); Potassium 4.1 mmol/L (3.3-5.1); Sodium 136 mmol/L (135-145); Total Protein 4.7 g/dL (6.5-8.0)
[2021-06-16 08:00] VITALS: BP 109/66; PULSE 89; RESP 18; TEMP 37.1
[2021-06-16 08:20] LABS: Glucose, Whole Blood 305 mg/dL (60-115)
[2021-06-16] MEDS: Insulin Lispro 100 UNIT/ML 3 ML VIAL SUBCUT ×4 (08:44→21:15)
--- NOTE | 2021-06-16 10:04 | HO.PM.IMPN ---
Subjective Subjective Date of Service: 06/16/21 Interval History: cc: abd pain interval history: still with pain Cardiovascular Cardiovascular: Reports no additional cardiovascular complaints Respiratory Respiratory: Reports no additional respiratory complaints Physical Exam Vital Signs: Vital Signs: Last Vital Signs Temp 98.7 F 06/16/21 08:00 Pulse 89 06/16/21 08:00 Resp 18 06/16/21 08:00 BP 109/66 06/16/21 08:00 Pulse Ox 98 06/16/21 04:00 Body Mass Index 33.6 General: AO X 3, wheepy, anasarca Resp:? CTA bilateral, no accessory muscles used CVS: S1,S2,RRR, GI: soft,? tender,? distended Neuro:? motor grossly intact, alert Psych: appropriate affect, appropriate insight? Objective Data Active Medications Carvedilol (Carvedilol 3.125 Mg Tablet) 3.125 mg PO BID [facility]; Protocol Last Admin: 06/14/21 21:34 Dose: Not Given Documented by: KATHERINE Non-Admin Reason: low BP related to paracentesis Dextrose (Dextrose 50 % 25 Gm/50 Ml Vial) 25 gm IVPUSH Q15M PRN; Protocol PRN Reason: per Hypoglycemia Standing Ord. Enoxaparin Sodium (Enoxaparin Sodium 40 Mg/0.4 Ml Syringe) 40 mg SUBCUT Q24H [facility] Last Admin: 06/15/21 12:00 Dose: 40 mg Documented by: DANILO Ferrous Sulfate (Ferrous Sulfate 324 Mg Tablet.Dr) 324 mg PO DAILY [facility] Last Admin: 06/16/21 08:45 Dose: Not Given Documented by: JESSIKA Non-Admin Reason: Patient Refused Furosemide (Furosemide 40 Mg Tablet) 40 mg PO DAILY [facility]; Protocol Last Admin: 06/16/21 08:45 Dose: Not Given Documented by: JESSIKA Non-Admin Reason: Patient Refused Glucose (Glucose Gel 15 Gm Gel..Gram.) 15 gm PO Q15M PRN; Protocol PRN Reason: per Hypoglycemia Standing Ord. Ceftriaxone Sodium 1 gm/ (Sodium Chloride) 50 mls @ 100 mls/hr IV Q24H [facility] Last Infusion: 06/15/21 16:32 Dose: 0 mls/hr Documented by: DANILO Insulin Human Lispro (Insulin Lispro 100 Unit/Ml 3 Ml Vial) 0 unit SUBCUT QIDACHS [facility]; Protocol Last Admin: 06/16/21 08:44 Dose: 8 unit Documented by: JESSIKA Lorazepam (Lorazepam 2 Mg/Ml Vial) 1 mg IVPUSH Q6H PRN PRN Reason: anxiety Last Admin: 06/16/21 05:26 Dose: 1 mg Documented by: JOSUE Melatonin (Melatonin 3 Mg Tablet) 6 mg PO BEDTIME PRN PRN Reason: Insomnia Ondansetron HCl (Ondansetron Hcl 4 Mg/2 Ml Vial) 4 mg IVPUSH Q8H PRN PRN Reason: nausea Last Admin: 06/15/21 12:52 Dose: 4 mg Documented by: DANILO Pharmacy Consult (Consult Rx Perform Med Rec) 1 each MISCELLANE ONCE PRN PRN Reason: Consult order Polyethylene Glycol (Polyethylene Glycol 3350 17 Gm Powd.Pack) 17 gm PO DAILY PRN PRN Reason: Constipation Senna (Sennosides 8.6 Mg Tablet) 17.2 mg PO BEDTIME PRN PRN Reason: Constipation Sodium Chloride (0.9 % Sodium Chloride Flush 3 Ml Syringe) 3 ml IVFLUSH [facility] Last Admin: 06/16/21 08:45 Dose: 3 ml Documented by: JESSIKA Spironolactone (Spironolactone 25 Mg Tablet) 50 mg PO BID@0900,1800 [facility]; Protocol Last Admin: 06/16/21 08:46 Dose: Not Given Documented by: JESSIKA Non-Admin Reason: Patient Refused Labs CBC & Chem 7: 06/16/21 06:26 06/16/21 05:58 Labs: Laboratory Results - last 24 hr 06/15/21 06/15/21 06/15/21 11:53 16:04 20:46 MCV MCH MCHC RDW Plt Count MPV Absolute Nucleated RBC Nucleated RBC % (auto) PT INR Anion Gap Estim Creat Clear Calc Estimated GFR POC Glucose 255 H 161 H 397 H* Fasting Glucose Calcium Magnesium Total Bilirubin Direct Bilirubin AST ALT Alkaline Phosphatase Ammonia Total Protein Albumin 06/16/21 06/16/21 06/16/21 05:58 05:58 05:58 MCV MCH MCHC RDW Plt Count MPV Absolute Nucleated RBC Nucleated RBC % (auto) PT 16.2 H INR 1.4 H Anion Gap 9 L Estim Creat Clear Calc 79.7 Estimated GFR > 60 POC Glucose Fasting Glucose 339 H Calcium 7.2 L Magnesium 1.7 Total Bilirubin 0.8 Direct Bilirubin 0.5 AST 24 ALT 13 Alkaline Phosphatase 72 D Ammonia 61 H Total Protein 4.7 L D Albumin 2.1 L 06/16/21 06/16/21 06:26 08:17 MCV 100.3 H MCH 33.8 H MCHC 33.7 RDW 15.2 Plt Count 122 L MPV Not Reportable Absolute Nucleated RBC 0.020 H Nucleated RBC % (auto) 0.4 H PT INR Anion Gap Estim Creat Clear Calc Estimated GFR POC Glucose 305 H Fasting Glucose Calcium Magnesium Total Bilirubin Direct Bilirubin AST ALT Alkaline Phosphatase Ammonia Total Protein Albumin Microbiology Microbiology Results: Microbiology 06/14/21 15:24 Blood Culture - Preliminary Blood - Venous Gram negative aster 06/14/21 15:24 Blood Culture - Preliminary Blood - Venous No growth after 24 hours. 06/14/21 20:44 Gram Stain - Final Abdominal Fluid Routine Culture - Preliminary No growth to date. Anaerobic Culture - Preliminary No growth to date. Assessment and Plan (1) Abdominal pain: Status: Acute (2) Ascites: Status: Acute Assessment and Plan: 55F presented with abdominal pain etoh liver cirrhosis with refractory painful ascites s/p paracentesis, PMN<250, fluid culture no growth, blood culture 1/2 GNR conitnue empiric rocpehin lasix, aldactone ID eval follow up final cultures hold coreg for relative hypotension GNR bacteremia source biliary vs uti, unlikely SBP follow up US abd continue rocpehin, follow up cultures DM insulin monitor poc dvt prophylaxis - lovenox Quality Stroke Does the patient have a stroke diagnosis?: No VTE Prior VTE?: No VTE Risk Level:: Medical - low VTE Device Contraindication: N/A - Device Ordered VTE Drug Contraindication: Treatment Not Indicated
--- NOTE | 2021-06-16 10:24 | MHC.CLN ---
NUTRITION REVIEW OF WEIGHT HX SHOWS SIGNIFICANT WEIGHT FLUCTUATION, DESIRABLE AND PLANNED WITH PARACENTESIS. PARACENTESIS DONE 06/11 WITH 3.5 L REMOVED. ADDITIONAL 5 LITERS ASCITIC FLUID REMOVED IN ED 06/14. ADDED DIABETIC 1800 KCAL DIET TO CURRENT 2 GRAM SODIUM DIET.
[2021-06-16 11:19] VITALS: BP 110/68; PULSE 86; RESP 16; TEMP 37.6; O2SAT 100
[2021-06-16 11:43] LABS: Glucose, Whole Blood 277 mg/dL (60-115)
--- NOTE | 2021-06-16 11:44 | MHC.CM.PN ---
EMR REVIEWED, BC POSITIVE FOR GRAM NEG RODS, PT WILL REMAIN ON IV ABX, NO PLAN FOR D/C TODAY, PT WILL RETURN TO [facility] ONCE MEDICALLY CLEARED.
[2021-06-16] MEDS: Enoxaparin Sodium 40 MG/0.4 ML SYRINGE SUBCUT (12:26)
[2021-06-16] MEDS: cefTRIAXone sodium 1 GM in 0.9 % Sodium Chloride 50 ML IV (14:33)
[2021-06-16 15:56] VITALS: BP 103/58; PULSE 86; RESP 18; TEMP 37; O2SAT 96
--- NOTE | 2021-06-16 16:11 | P.CNID_ITS ---
History of Present Illness Data of Consult Service Date: 06/16/21 Requesting physician: Eliel Martinez Primary Care Provider: Armen Clark MD HPI Reason for consult: abdominal discomfort She has 10/10 discomfort in abdomen. She has no fever or chills at this time She has gram negative rods blood and urine is pending. She has ascites as well There is no acute infection seen in abdomen films Review of Systems Review of Systems: Yes all other systems are reviewed and are negative PMFSH Past Medical History Medical History Cirrhosis Diabetes (~01/31/21) HTN (hypertension) Family History Family History Mother No problems noted. Father No problems noted. Family history: reviewed and not pertinent Social History Social History Household Members: Caregiver Housing: [facility] Do you presently have visiting nurse or other home services: No Alcohol intake: never Patient Tobacco Use Status: Never used Tobacco Use of substances other than those prescribed or required for medical reasons: No Currently Displaying Signs/Symptoms of Drug Intoxication Withdrawal: No Have you been hit, kicked, punched, or otherwise hurt by someone within the past year? If so, by whom?: No Do you feel safe in your current relationship?: Yes Is there a partner from a previous relationship who is making you feel unsafe now?: No Are you made to feel afraid or neglected: No Advance Directives: No Advance Directives Information Provided: No Do you have thoughts of harming others: None Do you have a plan to hurt others: No Plan Recently lost weight without trying: No Nutrition Risks: No Nutritional Risk Patient : No : No Poor oral hygiene: No service: No Current occupational status: disabled Meds Allergies Allergy/AdvReac Type Severity Reaction Status Date / Time No Known Allergies Allergy Verified 09/19/20 09:26 [No Known Allergies*] Active Medications: Current Medications Carvedilol (Carvedilol 3.125 Mg Tablet) 3.125 mg PO BID [facility]; Protocol Last Admin: 06/14/21 21:34 Dose: Not Given Documented by: Dextrose (Dextrose 50 % 25 Gm/50 Ml Vial) 25 gm IVPUSH Q15M PRN; Protocol PRN Reason: per Hypoglycemia Standing Ord. Enoxaparin Sodium (Enoxaparin Sodium 40 Mg/0.4 Ml Syringe) 40 mg SUBCUT Q24H [facility] Last Admin: 06/16/21 12:26 Dose: 40 mg Documented by: Ferrous Sulfate (Ferrous Sulfate 324 Mg Tablet.) 324 mg PO DAILY [facility] Last Admin: 06/16/21 08:45 Dose: Not Given Documented by: Furosemide (Furosemide 40 Mg Tablet) 40 mg PO DAILY [facility]; Protocol Last Admin: 06/16/21 08:45 Dose: Not Given Documented by: Glucose (Glucose Gel 15 Gm Gel..Gram.) 15 gm PO Q15M PRN; Protocol PRN Reason: per Hypoglycemia Standing Ord. Ceftriaxone Sodium 1 gm/ (Sodium Chloride) 50 mls @ 100 mls/hr IV Q24H [facility] Last Infusion: 06/16/21 16:04 Dose: Infused Documented by: Insulin Human Lispro (Insulin Lispro 100 Unit/Ml 3 Ml Vial) 0 unit SUBCUT QIDACHS [facility]; Protocol Last Admin: 06/16/21 12:26 Dose: 6 unit Documented by: Lorazepam (Lorazepam 2 Mg/Ml Vial) 1 mg IVPUSH Q6H PRN PRN Reason: anxiety Last Admin: 06/16/21 05:26 Dose: 1 mg Documented by: Melatonin (Melatonin 3 Mg Tablet) 6 mg PO BEDTIME PRN PRN Reason: Insomnia Ondansetron HCl (Ondansetron Hcl 4 Mg/2 Ml Vial) 4 mg IVPUSH Q8H PRN PRN Reason: nausea Last Admin: 06/15/21 12:52 Dose: 4 mg Documented by: Pharmacy Consult (Consult Rx Perform Med Rec) 1 each MISCELLANE ONCE PRN PRN Reason: Consult order Polyethylene Glycol (Polyethylene Glycol 3350 17 Gm Powd.Pack) 17 gm PO DAILY PRN PRN Reason: Constipation Senna (Sennosides 8.6 Mg Tablet) 17.2 mg PO BEDTIME PRN PRN Reason: Constipation Sodium Chloride (0.9 % Sodium Chloride Flush 3 Ml Syringe) 3 ml IVFLUSH QSHIFT [facility] Last Admin: 06/16/21 08:45 Dose: 3 ml Documented by: Spironolactone (Spironolactone 25 Mg Tablet) 50 mg PO BID@0900,1800 [facility]; Protocol Last Admin: 06/16/21 08:46 Dose: Not Given Documented by: Home Medications Medication Instructions Recorded Confirmed Last Taken Type ferrous sulfate 325 mg (65 mg 325 mg PO DAILY 09/05/20 06/14/21 06/14/21 History iron) tablet furosemide 20 mg tablet 20 mg PO DAILY 09/05/20 06/14/21 06/14/21 History spironolactone 25 mg tablet 25 mg PO DAILY tab 09/05/20 06/14/21 06/14/21 History insulin glargine 100 unit/mL (3 100 unit SUBCUT TU 05/18/21 06/14/21 06/14/21 History mL) subcutaneous pen polyethylene glycol 3350 17 17 g PO DAILY PRN 06/09/21 06/14/21 06/14/21 History gram/dose oral powder (Gavilax) sennosides 8.6 mg-docusate sodium 1 tab PO DAILY 06/09/21 06/14/21 06/14/21 History 50 mg tablet (Senna Plus) cephalexin 500 mg capsule 1 cap PO TID 06/14/21 06/14/21 06/14/21 History Physical Exam Vital Signs: Vital Signs: Last Vital Signs Temp 98.6 F 06/16/21 15:56 Pulse 86 06/16/21 15:56 Resp 18 06/16/21 15:56 BP 103/58 L 06/16/21 15:56 Pulse Ox 96 06/16/21 15:56 Body Mass Index 33.6 Const: General: cooperative HENMT: Head: Yes normal to inspection Mouth: Normal oral and palatal mucosa present Eyes: General: appearance normal, both eyes and all related structures Resp: Effort & Inspection: normal respiratory effort Cardio: Rate: regular rate Rhythm: regular rhythm GI: Palpation (GI): Soft to palpation and Tenderness to palpation present (GI) in the RLQ Skin: General skin exam: no rashes or lesions noted Extrem: General: Yes normal to inspection Results Labs CBC & Chem 7: 06/16/21 06:26 06/16/21 05:58 Labs: Short CBC 06/16/21 Range/Units 06:26 WBC 4.8 (4.8-10.8) X10*3/uL Hgb 10.3 L (12.0-16.0) g/dl Hct 30.6 L (37-47) % Plt Count 122 L (160-400) X10*3/uL BMP 06/16/21 05:58 Sodium 136 Potassium 4.1 D Chloride 101 Carbon Dioxide 30 H BUN 11 Creatinine 0.87 Calcium 7.2 L Liver Function 06/16/21 Range/Units 05:58 Total Bilirubin 0.8 (0.0-1.0) mg/dL Direct Bilirubin 0.5 (0.0-0.5) mg/dL AST 24 (5-31) U/L ALT 13 (0-31) U/L Alkaline Phosphatase 72 D (39-117) U/L Albumin 2.1 L (3.5-5.0) g/dL Microbiology Microbiology Results: Microbiology 06/15/21 Unknown Urine clean catch - Urine [facility] Urine Culture - Preliminary Culture in progress. 06/14/21 20:44 Abdominal Fluid Gram Stain - Final 06/14/21 20:44 Abdominal Fluid Routine Culture - Preliminary No growth to date. 06/14/21 20:44 Abdominal Fluid Anaerobic Culture - Preliminary No growth to date. 06/14/21 15:24 Blood - Venous Blood Culture - Preliminary Gram negative aster 06/14/21 15:24 Blood - Venous Blood Culture - Preliminary No growth after 24 hours. Assessment and Plan (1) Abdominal pain: Qualifiers: Abdominal location: unspecified location Qualified Code(s): R10.9 - Unspecified abdominal pain Status: Acute She has abdominal discomfort,probably from ascites with bacteremia from that even though she has less than 250 WBC. She has also possible UTI. (2) Ascites: Status: Acute Continue gram negative coverage and await cultures. Probably 7-10 days treatment,finish per cultures
[2021-06-16 16:47] LABS: Glucose, Whole Blood 365 mg/dL (60-115)
[2021-06-16] MEDS: Spironolactone 25 MG TABLET 50 MG PO (17:23)
[2021-06-16 19:27] VITALS: BP 155/60; PULSE 95; RESP 18; TEMP 36.4; O2SAT 97
--- NOTE | 2021-06-16 19:33 | PM.GIPN ---
Subjective Subjective Date of Service: 06/16/21 Interval History: Hx from patient, RN, and EMR. Still c/o upper abdominal pain, tearful. No report of vomiting, diarrhea, nor bleeding Critical Care Time (minutes): 0 Physical Exam Vital Signs: Vital Signs: Last Vital Signs Temp 97.6 F 06/16/21 19:27 Pulse 95 06/16/21 19:27 Resp 18 06/16/21 19:27 BP 155/60 H 06/16/21 19:27 Pulse Ox 97 06/16/21 19:27 Body Mass Index 33.6 Const: Other: C/O abdominal pain, tearful General: cooperative and alert Eyes: Sclerae: sclerae normal GI: Other: +BS, somewhat distended but soft, diffuse upper abdominal tenderness Objective Data Labs CBC & Chem 7: 06/16/21 06:26 06/16/21 05:58 Labs: Laboratory Results - last 24 hr 06/15/21 06/16/21 06/16/21 20:46 05:58 05:58 WBC RBC Hgb Hct MCV MCH MCHC RDW Plt Count MPV Absolute Nucleated RBC Nucleated RBC % (auto) PT INR Sodium 136 Potassium 4.1 D Chloride 101 Carbon Dioxide 30 H Anion Gap 9 L BUN 11 Creatinine 0.87 Estim Creat Clear Calc 79.7 Estimated GFR > 60 POC Glucose 397 H* Fasting Glucose 339 H Calcium 7.2 L Magnesium 1.7 Total Bilirubin 0.8 Direct Bilirubin 0.5 AST 24 ALT 13 Alkaline Phosphatase 72 D Ammonia 61 H Total Protein 4.7 L D Albumin 2.1 L 06/16/21 06/16/21 06/16/21 05:58 06:26 08:17 WBC 4.8 RBC 3.05 L Hgb 10.3 L Hct 30.6 L MCV 100.3 H MCH 33.8 H MCHC 33.7 RDW 15.2 Plt Count 122 L MPV Not Reportable Absolute Nucleated RBC 0.020 H Nucleated RBC % (auto) 0.4 H PT 16.2 H INR 1.4 H Sodium Potassium Chloride Carbon Dioxide Anion Gap BUN Creatinine Estim Creat Clear Calc Estimated GFR POC Glucose 305 H Fasting Glucose Calcium Magnesium Total Bilirubin Direct Bilirubin AST ALT Alkaline Phosphatase Ammonia Total Protein Albumin 06/16/21 06/16/21 11:28 15:59 WBC RBC Hgb Hct MCV MCH MCHC RDW Plt Count MPV Absolute Nucleated RBC Nucleated RBC % (auto) PT INR Sodium Potassium Chloride Carbon Dioxide Anion Gap BUN Creatinine Estim Creat Clear Calc Estimated GFR POC Glucose 277 H 365 H* Fasting Glucose Calcium Magnesium Total Bilirubin Direct Bilirubin AST ALT Alkaline Phosphatase Ammonia Total Protein Albumin Imaging US - abdomen: Radiologist's impression: Gallstones with tenderness over GB; CBD not visualized Microbiology Microbiology Results: Microbiology 06/14/21 15:24 Blood - Venous Blood Culture - Preliminary No growth after 48 hours. 06/15/21 Unknown Urine clean catch - Urine hendesron top Urine Culture - Preliminary Culture in progress. 06/14/21 20:44 Abdominal Fluid Gram Stain - Final 06/14/21 20:44 Abdominal Fluid Routine Culture - Preliminary No growth to date. 06/14/21 20:44 Abdominal Fluid Anaerobic Culture - Preliminary No growth to date. 06/14/21 15:24 Blood - Venous Blood Culture - Preliminary Gram negative aster Procedures Date of Service Date of Service: 06/16/21 Progress Note: A&P Assessment and plan (1) Ascites: Status: Acute (2) Abdominal pain: Status: Acute Assessment and Plan: Imp: Her cirrhosis seems stable given the normal LFT's, stable PT/INR, and just minimally elevated ammonia level. Her abdominal pain and GNR sepsis may be in relation to her gallstones and gallbladder The U/S describes tenderness over the GB. Choledocholithiasis seems unlikely given a normal liver profile. I ordered a HIDA scan but they could not do that as she had already eaten. They can't do it over the weekend due to being unable to receive the isotope until Saturday. Rec: I will see if they can do a MRCP over the weekend to try to inspect the CBD and better assess the GB. The U/S could not visualize the CBD today. Perhaps will try to order the HIDA scan for Saturday if still needed. Continue diuretics and F/U labs. Await the final result of the GNR in the blood culture. D/W patient. Thanks (3) Cirrhosis: Status: Acute (4) Gallstones: Status: Acute Fall Risk Details Current Medications: Current Medications Carvedilol (Carvedilol 3.125 Mg Tablet) 3.125 mg PO BID [facility]; Protocol Last Admin: 06/14/21 21:34 Dose: Not Given Documented by: Dextrose (Dextrose 50 % 25 Gm/50 Ml Vial) 25 gm IVPUSH Q15M PRN; Protocol PRN Reason: per Hypoglycemia Standing Ord. Enoxaparin Sodium (Enoxaparin Sodium 40 Mg/0.4 Ml Syringe) 40 mg SUBCUT Q24H [facility] Last Admin: 06/16/21 12:26 Dose: 40 mg Documented by: Ferrous Sulfate (Ferrous Sulfate 324 Mg Tablet.) 324 mg PO DAILY [facility] Last Admin: 06/16/21 08:45 Dose: Not Given Documented by: Furosemide (Furosemide 40 Mg Tablet) 40 mg PO DAILY [facility]; Protocol Last Admin: 06/16/21 08:45 Dose: Not Given Documented by: Glucose (Glucose Gel 15 Gm Gel..Gram.) 15 gm PO Q15M PRN; Protocol PRN Reason: per Hypoglycemia Standing Ord. Ceftriaxone Sodium 1 gm/ (Sodium Chloride) 50 mls @ 100 mls/hr IV Q24H [facility] Last Infusion: 06/16/21 16:04 Dose: Infused Documented by: Insulin Human Lispro (Insulin Lispro 100 Unit/Ml 3 Ml Vial) 0 unit SUBCUT QIDACHS [facility]; Protocol Last Admin: 06/16/21 17:23 Dose: 10 unit Documented by: Lorazepam (Lorazepam 2 Mg/Ml Vial) 1 mg IVPUSH Q6H PRN PRN Reason: anxiety Last Admin: 06/16/21 05:26 Dose: 1 mg Documented by: Melatonin (Melatonin 3 Mg Tablet) 6 mg PO BEDTIME PRN PRN Reason: Insomnia Ondansetron HCl (Ondansetron Hcl 4 Mg/2 Ml Vial) 4 mg IVPUSH Q8H PRN PRN Reason: nausea Last Admin: 06/15/21 12:52 Dose: 4 mg Documented by: Pharmacy Consult (Consult Rx Perform Med Rec) 1 each MISCELLANE ONCE PRN PRN Reason: Consult order Polyethylene Glycol (Polyethylene Glycol 3350 17 Gm Powd.Pack) 17 gm PO DAILY PRN PRN Reason: Constipation Senna (Sennosides 8.6 Mg Tablet) 17.2 mg PO BEDTIME PRN PRN Reason: Constipation Sodium Chloride (0.9 % Sodium Chloride Flush 3 Ml Syringe) 3 ml IVFLUSH QSHIFT [facility] Last Admin: 06/16/21 17:24 Dose: 3 ml Documented by: Spironolactone (Spironolactone 25 Mg Tablet) 50 mg PO BID@0900,1800 [facility]; Protocol Last Admin: 06/16/21 17:23 Dose: 50 mg Documented by: Time Spent With Patient Time: Total time spent is greater than 50% in coordination of care (as documented) at patient's floor/unit and/or counseling patient: Time with patient: 15 - 24 minutes Quality Stroke Does the patient have a stroke diagnosis?: No VTE Prior VTE?: No VTE Risk Level:: Medical - low VTE Device Contraindication: N/A - Device Ordered VTE Drug Contraindication: Treatment Not Indicated
[2021-06-16 20:31] LABS: Glucose, Whole Blood 396 mg/dL (60-115)
[2021-06-17] VITALS: BP 105/60; PULSE 89; RESP 16; TEMP 37.2; O2SAT 96
[2021-06-17] MEDS: 0.9 % Sodium Chloride Flush 3 ML SYRINGE IVFLUSH ×4 (01:57→20:57)
[2021-06-17 04:00] VITALS: BP 106/71; PULSE 88; RESP 16; TEMP 37.1; O2SAT 94
[2021-06-17 06:14] LABS: Hematocrit 29.4 % (37-47); Hemoglobin 9.9 g/dl (12.0-16.0); Mean Corpuscular HGB Conc 33.7 g/dl (31.0-35.0); Mean Platelet Volume 10.3 fL (9.4-12.3); Platelet Count 123 X10*3/uL (160-400); Red Cell Distribution Width 14.9 % (11.0-16.0); White Blood Count 4.4 X10*3/uL (4.8-10.8)
[2021-06-17 06:47] LABS: Alanine Aminotransferase 14 U/L (0-31); Albumin Level 2.1 g/dL (3.5-5.0); Alkaline Phosphatase 89 U/L (39-117); Anion Gap 10 (12-20); Aspartate Amino Transferase 25 U/L (5-31); Bilirubin Direct 0.5 mg/dL (0.0-0.5); Blood Urea Nitrogen 10 mg/dL (9-16); Calcium 7.5 mg/dL (8.4-10.2); Carbon Dioxide 29 mmol/L (22-29); Chloride 100 mmol/L (96-108); Creatinine Clr Calc Pharmacy 84.7; Estimated Glomerular Filt Rate > 60; Glucose Fasting 394 mg/dL (60-99); Sodium 135 mmol/L (135-145); Total Protein 5.1 g/dL (6.5-8.0)
[2021-06-17 07:55] VITALS: BP 97/61; PULSE 83; RESP 18; TEMP 36.5; O2SAT 95
[2021-06-17 08:28] LABS: Glucose, Whole Blood 348 mg/dL (60-115)
[2021-06-17] MEDS: Insulin Lispro 100 UNIT/ML 3 ML VIAL SUBCUT ×4 (08:37→20:56)
[2021-06-17] MEDS: LORazepam 2 MG/ML VIAL 1 MG IVPUSH (10:51)
--- NOTE | 2021-06-17 11:08 | P.PNIM_ITS ---
Subjective Subjective Date of Service: 06/17/21 Interval History: cc: abd pain interval history: still with pain Cardiovascular Cardiovascular: Reports no additional cardiovascular complaints Respiratory Respiratory: Reports no additional respiratory complaints Physical Exam Vital Signs: Vital Signs: Last Vital Signs Temp 97.7 F 06/17/21 07:55 Pulse 83 06/17/21 07:55 Resp 18 06/17/21 07:55 BP 97/61 06/17/21 07:55 Pulse Ox 95 06/17/21 07:55 Body Mass Index 33.6 General: AO X 3, wheepy, anasarca Resp:? CTA bilateral, no accessory muscles used CVS: S1,S2,RRR, GI: soft,? tender,? distended Neuro:? motor grossly intact, alert Psych: appropriate affect, appropriate insight? Objective Data Active Medications Carvedilol (Carvedilol 3.125 Mg Tablet) 3.125 mg PO BID [facility]; Protocol Last Admin: 06/14/21 21:34 Dose: Not Given Documented by: KATHERINE Non-Admin Reason: low BP related to paracentesis Dextrose (Dextrose 50 % 25 Gm/50 Ml Vial) 25 gm IVPUSH Q15M PRN; Protocol PRN Reason: per Hypoglycemia Standing Ord. Enoxaparin Sodium (Enoxaparin Sodium 40 Mg/0.4 Ml Syringe) 40 mg SUBCUT Q24H [facility] Last Admin: 06/16/21 12:26 Dose: 40 mg Documented by: MAHSA Ferrous Sulfate (Ferrous Sulfate 324 Mg Tablet.Dr) 324 mg PO DAILY [facility] Last Admin: 06/17/21 08:29 Dose: Not Given Documented by: JESSIKA Non-Admin Reason: Patient Refused Furosemide (Furosemide 40 Mg Tablet) 40 mg PO DAILY [facility]; Protocol Last Admin: 06/17/21 08:29 Dose: Not Given Documented by: JESSIKA Non-Admin Reason: Patient Refused Glucose (Glucose Gel 15 Gm Gel..Gram.) 15 gm PO Q15M PRN; Protocol PRN Reason: per Hypoglycemia Standing Ord. Ceftriaxone Sodium 1 gm/ (Sodium Chloride) 50 mls @ 100 mls/hr IV Q24H [facility] Last Infusion: 06/16/21 16:04 Dose: 0 mls/hr Documented by: LILY Insulin Human Lispro (Insulin Lispro 100 Unit/Ml 3 Ml Vial) 0 unit SUBCUT QIDA [facility]; Protocol Last Admin: 06/17/21 08:37 Dose: 8 unit Documented by: JESSIKA Lorazepam (Lorazepam 2 Mg/Ml Vial) 1 mg IVPUSH Q6H PRN PRN Reason: anxiety Last Admin: 06/17/21 10:51 Dose: 1 mg Documented by: JESSIKA Melatonin (Melatonin 3 Mg Tablet) 6 mg PO BEDTIME PRN PRN Reason: Insomnia Ondansetron HCl (Ondansetron Hcl 4 Mg/2 Ml Vial) 4 mg IVPUSH Q8H PRN PRN Reason: nausea Last Admin: 06/15/21 12:52 Dose: 4 mg Documented by: DANILO Pharmacy Consult (Consult Rx Perform Med Rec) 1 each MISCELLANE ONCE PRN PRN Reason: Consult order Polyethylene Glycol (Polyethylene Glycol 3350 17 Gm Powd.Pack) 17 gm PO DAILY PRN PRN Reason: Constipation Senna (Sennosides 8.6 Mg Tablet) 17.2 mg PO BEDTIME PRN PRN Reason: Constipation Sodium Chloride (0.9 % Sodium Chloride Flush 3 Ml Syringe) 3 ml IVFLUSH [facility] Last Admin: 06/17/21 08:39 Dose: 3 ml Documented by: JESSIKA Spironolactone (Spironolactone 25 Mg Tablet) 50 mg PO BID@0900,1800 [facility]; Protocol Last Admin: 06/17/21 08:30 Dose: Not Given Documented by: JESSIKA Non-Admin Reason: Patient Refused Labs CBC & Chem 7: 06/17/21 05:46 06/17/21 05:46 Labs: Laboratory Results - last 24 hr 06/16/21 06/16/21 06/16/21 11:28 15:59 19:58 MCV MCH MCHC RDW Plt Count MPV Absolute Nucleated RBC Nucleated RBC % (auto) Anion Gap Estim Creat Clear Calc Estimated GFR POC Glucose 277 H 365 H* 396 H* Fasting Glucose Calcium Total Bilirubin Direct Bilirubin AST ALT Alkaline Phosphatase Total Protein Albumin 06/17/21 06/17/21 06/17/21 05:46 05:46 07:54 MCV 98.0 MCH 33.0 MCHC 33.7 RDW 14.9 Plt Count 123 L MPV 10.3 Absolute Nucleated RBC 0.000 Nucleated RBC % (auto) 0.0 Anion Gap 10 L Estim Creat Clear Calc 84.7 Estimated GFR > 60 POC Glucose 348 H Fasting Glucose 394 H* Calcium 7.5 L Total Bilirubin 1.0 Direct Bilirubin 0.5 AST 25 ALT 14 Alkaline Phosphatase 89 D Total Protein 5.1 L Albumin 2.1 L Microbiology Microbiology Results: Microbiology 06/15/21 Unknown Urine Culture - Preliminary Urine clean catch - Urine henderson top Gram negative aster 06/14/21 15:24 Blood Culture - Preliminary Blood - Venous Escherichia coli 06/14/21 15:24 Blood Culture - Preliminary Blood - Venous No growth after 48 hours. 06/14/21 20:44 Gram Stain - Final Abdominal Fluid Routine Culture - Preliminary No growth to date. Anaerobic Culture - Preliminary No growth to date. Assessment and Plan (1) Abdominal pain: Status: Acute (2) Ascites: Status: Acute Assessment and Plan: 55F presented with abdominal pain etoh liver cirrhosis with abdominal pain s/p paracentesis, PMN<250, fluid culture no growth, blood culture 1/2 ecoli continue rocephin, sensitivites pending lasix, aldactone follow up final cultures hold coreg for relative hypotension ecoli bacteremia source biliary vs uti, unlikely SBP urine also growing GNR follow up MRI continue rocpehin, follow up cultures DM insulin monitor poc dvt prophylaxis - lovenox Quality Stroke Does the patient have a stroke diagnosis?: No VTE Prior VTE?: No VTE Risk Level:: Medical - low VTE Device Contraindication: N/A - Device Ordered VTE Drug Contraindication: Treatment Not Indicated
[2021-06-17 12:00] VITALS: BP 113/59; PULSE 87; RESP 18; TEMP 36.4; O2SAT 93
[2021-06-17 12:23] LABS: Glucose, Whole Blood 299 mg/dL (60-115)
[2021-06-17] MEDS: Enoxaparin Sodium 40 MG/0.4 ML SYRINGE SUBCUT (12:54)
[2021-06-17 15:46] VITALS: BP 92/63; PULSE 88; RESP 18; TEMP 37; O2SAT 94
[2021-06-17 16:41] LABS: Glucose, Whole Blood 311 mg/dL (60-115)
[2021-06-17] MEDS: cefTRIAXone sodium 1 GM in 0.9 % Sodium Chloride 50 ML IV (16:47)
--- NOTE | 2021-06-17 18:58 | P.EN_ITS ---
Event Note Date of Service: 06/17/21 Event Note: Course noted with continued normal LFT's, MRCP negative for choled ocholithiasis and biliary obstruction, and now the urine culture being + for GNR's as well. The source of sepsis appears to be c/w that of urosepsis, as opposed to a biliary source or SBP. At this point I would continue antibiotics, diuretics, and following of her renal function. I would hold off on the HIDA scan for now. She should F/U with her outpatient GI/Hepatology(I believe she and her daughter stated that she has seen Dr. Cabral and did have an upcoming appt with her). Thanks
[2021-06-17 20:00] VITALS: BP 116/63; PULSE 91; RESP 17; TEMP 36.3; O2SAT 92
[2021-06-17 20:45] LABS: Glucose, Whole Blood 257 mg/dL (60-115)
[2021-06-18] VITALS (7 sets, daily range): BP systolic 99–115; BP diastolic 56–62; PULSE 83–91; RESP 16–18; TEMP 36–36.7; O2SAT 92–99
[2021-06-18] MEDS: HYDROmorphone HCl 0.5 MG/0.5 ML SYRINGE IVPUSH (05:07)
--- NOTE | 2021-06-18 05:14 | PC.NURSE ---
pt c/o 05/28 abd pain.no pain med ordered. notified.ordered dilaudid 0.5mg iv x 1.given at 0507.
[2021-06-18 06:13] LABS: Hematocrit 31.1 % (37.0-47.0); Hemoglobin 10.4 g/dl (12.0-16.0); Mean Corpuscular HGB Conc 33.4 g/dl (31.0-35.0); Mean Corpuscular Volume 98.7 fL (80.0-98.0); Mean Platelet Volume 9.7 fL (9.4-12.3); Platelet Count 120 X10*3/uL (160-400); Red Blood Count 3.15 X10*6/uL (4.20-5.50); White Blood Count 4.9 X10*3/uL (4.8-10.8)
[2021-06-18 06:59] LABS: Alanine Aminotransferase 14 U/L (0-31); Albumin Level 2.2 g/dL (3.5-5.0); Alkaline Phosphatase 96 U/L (39-117); Anion Gap 9 (12-20); Aspartate Amino Transferase 28 U/L (5-31); Bilirubin Direct 0.5 mg/dL (0.0-0.5); Blood Urea Nitrogen 10 mg/dL (9-16); Calcium 7.5 mg/dL (8.4-10.2); Carbon Dioxide 29 mmol/L (22-29); Chloride 102 mmol/L (96-108); Creatinine Clr Calc Pharmacy 86.7; Estimated Glomerular Filt Rate > 60; Glucose Fasting 320 mg/dL (60-99); Potassium 3.9 mmol/L (3.3-5.1); Sodium 136 mmol/L (135-145); Total Protein 5.3 g/dL (6.5-8.0)
[2021-06-18 07:53] LABS: Glucose, Whole Blood 329 mg/dL (60-115)
[2021-06-18] MEDS: Furosemide 40 MG TABLET PO (08:15)
[2021-06-18] MEDS: Spironolactone 25 MG TABLET 50 MG PO ×2 (08:16→16:56)
[2021-06-18] MEDS: Insulin Lispro 100 UNIT/ML 3 ML VIAL SUBCUT ×4 (08:16→21:19)
[2021-06-18] MEDS: 0.9 % Sodium Chloride Flush 3 ML SYRINGE IVFLUSH ×3 (08:21→16:58)
--- NOTE | 2021-06-18 09:16 | HO.PM.IMPN ---
Subjective Subjective Date of Service: 06/18/21 Interval History: cc: abd pain interval history: still with pain Cardiovascular Cardiovascular: Reports no additional cardiovascular complaints Respiratory Respiratory: Reports no additional respiratory complaints Physical Exam Vital Signs: Vital Signs: Last Vital Signs Temp 96.8 F 06/18/21 07:48 Pulse 85 06/18/21 07:48 Resp 18 06/18/21 07:48 BP 110/62 06/18/21 07:48 Pulse Ox 92 06/18/21 07:48 Body Mass Index 33.6 General: AO X 3, wheepy, anasarca Resp:? CTA bilateral, no accessory muscles used CVS: S1,S2,RRR, GI: soft,? tender,? distended Neuro:? motor grossly intact, alert Psych: appropriate affect, appropriate insight? Objective Data Active Medications Carvedilol (Carvedilol 3.125 Mg Tablet) 3.125 mg PO BID [facility]; Protocol Last Admin: 06/14/21 21:34 Dose: Not Given Documented by: KATHERINE Non-Admin Reason: low BP related to paracentesis Dextrose (Dextrose 50 % 25 Gm/50 Ml Vial) 25 gm IVPUSH Q15M PRN; Protocol PRN Reason: per Hypoglycemia Standing Ord. Enoxaparin Sodium (Enoxaparin Sodium 40 Mg/0.4 Ml Syringe) 40 mg SUBCUT Q24H [facility] Last Admin: 06/17/21 12:54 Dose: 40 mg Documented by: JESSIKA Ferrous Sulfate (Ferrous Sulfate 324 Mg Tablet.Dr) 324 mg PO DAILY [facility] Last Admin: 06/18/21 08:21 Dose: Not Given Documented by: RAFAEL Non-Admin Reason: Patient Refused Furosemide (Furosemide 40 Mg Tablet) 40 mg PO DAILY [facility]; Protocol Last Admin: 06/18/21 08:15 Dose: 40 mg Documented by: RAFAEL Glucose (Glucose Gel 15 Gm Gel..Gram.) 15 gm PO Q15M PRN; Protocol PRN Reason: per Hypoglycemia Standing Ord. Meropenem 1 gm/ Sodium (Chloride) 100 mls @ 100 mls/hr IV Q8H [facility] Insulin Human Lispro (Insulin Lispro 100 Unit/Ml 3 Ml Vial) 0 unit SUBCUT QIDACHS [facility]; Protocol Last Admin: 06/18/21 08:16 Dose: 8 unit Documented by: RAFAEL Lorazepam (Lorazepam 2 Mg/Ml Vial) 1 mg IVPUSH Q6H PRN PRN Reason: anxiety Last Admin: 06/17/21 10:51 Dose: 1 mg Documented by: JESSIKA Melatonin (Melatonin 3 Mg Tablet) 6 mg PO BEDTIME PRN PRN Reason: Insomnia Ondansetron HCl (Ondansetron Hcl 4 Mg/2 Ml Vial) 4 mg IVPUSH Q8H PRN PRN Reason: nausea Last Admin: 06/15/21 12:52 Dose: 4 mg Documented by: DANILO Pharmacy Consult (Consult Rx Perform Med Rec) 1 each MISCELLANE ONCE PRN PRN Reason: Consult order Polyethylene Glycol (Polyethylene Glycol 3350 17 Gm Powd.Pack) 17 gm PO DAILY PRN PRN Reason: Constipation Senna (Sennosides 8.6 Mg Tablet) 17.2 mg PO BEDTIME PRN PRN Reason: Constipation Sodium Chloride (0.9 % Sodium Chloride Flush 3 Ml Syringe) 3 ml IVFLUSH QSHIFT [facility] Last Admin: 06/18/21 08:21 Dose: 3 ml Documented by: RAFAEL Spironolactone (Spironolactone 25 Mg Tablet) 50 mg PO BID@0900,1800 [facility]; Protocol Last Admin: 06/18/21 08:16 Dose: 50 mg Documented by: RAFAEL Labs CBC & Chem 7: 06/18/21 05:55 06/18/21 05:55 Labs: Laboratory Results - last 24 hr 06/17/21 06/17/21 06/17/21 12:07 16:23 20:40 MCV MCH MCHC RDW Plt Count MPV Absolute Nucleated RBC Nucleated RBC % (auto) Anion Gap Estim Creat Clear Calc Estimated GFR POC Glucose 299 H 311 H 257 H Fasting Glucose Calcium Total Bilirubin Direct Bilirubin AST ALT Alkaline Phosphatase Total Protein Albumin 06/18/21 06/18/21 06/18/21 05:55 05:55 07:46 MCV 98.7 H MCH 33.0 MCHC 33.4 RDW 15.0 Plt Count 120 L MPV 9.7 Absolute Nucleated RBC 0.000 Nucleated RBC % (auto) 0.0 Anion Gap 9 L Estim Creat Clear Calc 86.7 Estimated GFR > 60 POC Glucose 329 H Fasting Glucose 320 H Calcium 7.5 L Total Bilirubin 1.0 Direct Bilirubin 0.5 AST 28 ALT 14 Alkaline Phosphatase 96 Total Protein 5.3 L Albumin 2.2 L Microbiology Microbiology Results: Microbiology 06/14/21 15:24 Blood Culture - Final Blood - Venous Escherichia coli 06/15/21 Unknown Urine Culture - Final Urine clean catch - Urine henderson top Escherichia coli 06/14/21 20:44 Gram Stain - Final Abdominal Fluid Routine Culture - Final No growth after 2 days Anaerobic Culture - Preliminary No growth to date. Assessment and Plan (1) Abdominal pain: Status: Acute (2) Ascites: Status: Acute Assessment and Plan: 55F presented with abdominal pain etoh liver cirrhosis with abdominal pain s/p paracentesis, PMN<250, fluid culture no growth lasix, aldactone hold coreg for relative hypotension ecoli bacteremia source most likely urinary urine growing ESBL will change to merem follow up ID cholelithiasis does not appear to be cholecystitis, will hold off on HIDA for now DM insulin monitor poc dvt prophylaxis - lovenox Quality Stroke Does the patient have a stroke diagnosis?: No VTE Prior VTE?: No VTE Risk Level:: Medical - low VTE Device Contraindication: N/A - Device Ordered VTE Drug Contraindication: Treatment Not Indicated
[2021-06-18 12:03] LABS: Glucose, Whole Blood 336 mg/dL (60-115)
[2021-06-18] MEDS: Enoxaparin Sodium 40 MG/0.4 ML SYRINGE SUBCUT (12:22)
[2021-06-18 16:25] LABS: Glucose, Whole Blood 319 mg/dL (60-115)
[2021-06-18 20:19] LABS: Glucose, Whole Blood 362 mg/dL (60-115)
[2021-06-19] VITALS (10 sets, daily range): BP systolic 90–122; BP diastolic 54–75; PULSE 86–95; RESP 16–19; TEMP 36.2–37.1; O2SAT 94–99
[2021-06-19] MEDS: HYDROmorphone HCl 0.5 MG/0.5 ML SYRINGE IVPUSH (03:37)
--- NOTE | 2021-06-19 03:45 | MHC.PIE ---
P: Pt heard and seen crying for severe abdominal pain in the RUQ, abdomen is round very large and firm I: Dr. Pollard was notified and ordered Dilaudid 0.5 mg slow IV. E: Pt had slowly ease up from pain and eventually fell asleep.
[2021-06-19 07:30] LABS: Glucose, Whole Blood 296 mg/dL (60-115)
[2021-06-19] MEDS: Insulin Lispro 100 UNIT/ML 3 ML VIAL SUBCUT ×4 (08:06→21:15)
[2021-06-19] MEDS: 0.9 % Sodium Chloride Flush 3 ML SYRINGE IVFLUSH ×3 (08:07→21:15)
[2021-06-19] MEDS: Spironolactone 25 MG TABLET 50 MG PO ×2 (08:09→18:16)
[2021-06-19] MEDS: Furosemide 40 MG TABLET PO (08:09)
--- NOTE | 2021-06-19 09:24 | HO.PM.IMPN ---
Subjective Subjective Date of Service: 06/19/21 Interval History: ?cc: abd pain interval history: still with pain Cardiovascular Cardiovascular: Reports no additional cardiovascular complaints Respiratory Respiratory: Reports no additional respiratory complaints Physical Exam Vital Signs: Vital Signs: Last Vital Signs Temp 97.6 F 06/19/21 07:26 Pulse 90 06/19/21 07:26 Resp 17 06/19/21 07:26 BP 122/62 06/19/21 07:26 Pulse Ox 94 06/19/21 07:26 Body Mass Index 33.6 General: AO X 3, wheepy, anasarca Resp:? CTA bilateral, no accessory muscles used CVS: S1,S2,RRR, GI: soft,? tender,? distended, more tense than yesterday Neuro:? motor grossly intact, alert Psych: appropriate affect, appropriate insight? Objective Data Active Medications Carvedilol (Carvedilol 3.125 Mg Tablet) 3.125 mg PO BID [facility]; Protocol Last Admin: 06/14/21 21:34 Dose: Not Given Documented by: KATHERINE Non-Admin Reason: low BP related to paracentesis Dextrose (Dextrose 50 % 25 Gm/50 Ml Vial) 25 gm IVPUSH Q15M PRN; Protocol PRN Reason: per Hypoglycemia Standing Ord. Enoxaparin Sodium (Enoxaparin Sodium 40 Mg/0.4 Ml Syringe) 40 mg SUBCUT Q24H [facility] Last Admin: 06/18/21 12:22 Dose: 40 mg Documented by: RAFAEL Ferrous Sulfate (Ferrous Sulfate 324 Mg Tablet.Dr) 324 mg PO DAILY [facility] Last Admin: 06/19/21 08:10 Dose: Not Given Documented by: JESSIKA Non-Admin Reason: Patient Refused Furosemide (Furosemide 40 Mg Tablet) 40 mg PO DAILY [facility]; Protocol Last Admin: 06/19/21 08:09 Dose: 40 mg Documented by: JESSIKA Glucose (Glucose Gel 15 Gm Gel..Gram.) 15 gm PO Q15M PRN; Protocol PRN Reason: per Hypoglycemia Standing Ord. Meropenem 1 gm/ Sodium (Chloride) 100 mls @ 100 mls/hr IV Q8H [facility] Last Infusion: 06/19/21 02:36 Dose: 0 mls/hr Documented by: NIR Insulin Human Lispro (Insulin Lispro 100 Unit/Ml 3 Ml Vial) 0 unit SUBCUT QIDACHS [facility]; Protocol Last Admin: 06/19/21 08:06 Dose: 6 unit Documented by: JESSIKA Lorazepam (Lorazepam 2 Mg/Ml Vial) 1 mg IVPUSH Q6H PRN PRN Reason: anxiety Last Admin: 06/17/21 10:51 Dose: 1 mg Documented by: JESSIKA Melatonin (Melatonin 3 Mg Tablet) 6 mg PO BEDTIME PRN PRN Reason: Insomnia Ondansetron HCl (Ondansetron Hcl 4 Mg/2 Ml Vial) 4 mg IVPUSH Q8H PRN PRN Reason: nausea Last Admin: 06/15/21 12:52 Dose: 4 mg Documented by: DANILO Pharmacy Consult (Consult Rx Perform Med Rec) 1 each MISCELLANE ONCE PRN PRN Reason: Consult order Polyethylene Glycol (Polyethylene Glycol 3350 17 Gm Powd.Pack) 17 gm PO DAILY PRN PRN Reason: Constipation Senna (Sennosides 8.6 Mg Tablet) 17.2 mg PO BEDTIME PRN PRN Reason: Constipation Sodium Chloride (0.9 % Sodium Chloride Flush 3 Ml Syringe) 3 ml IVFLUSH [facility] Last Admin: 06/19/21 08:07 Dose: 3 ml Documented by: JESSIKA Spironolactone (Spironolactone 25 Mg Tablet) 50 mg PO BID@0900,1800 [facility]; Protocol Last Admin: 06/19/21 08:09 Dose: 50 mg Documented by: JESSIKA Labs CBC & Chem 7: 06/18/21 05:55 06/18/21 05:55 Labs: Laboratory Results - last 24 hr 06/18/21 06/18/21 06/18/21 11:55 16:21 20:14 POC Glucose 336 H 319 H 362 H* 06/19/21 07:24 POC Glucose 296 H Microbiology Microbiology Results: Microbiology 06/14/21 20:44 Gram Stain - Final Abdominal Fluid Routine Culture - Final No growth after 2 days Anaerobic Culture - Preliminary No growth to date. 06/14/21 15:24 Blood Culture - Final Blood - Venous Escherichia coli 06/15/21 Unknown Urine Culture - Final Urine clean catch - Urine henderson top Escherichia coli Assessment and Plan (1) Abdominal pain: Status: Acute (2) Ascites: Status: Acute Assessment and Plan: 55F presented with abdominal pain etoh liver cirrhosis with abdominal pain s/p paracentesis, PMN<250, fluid culture no growth lasix, aldactone hold coreg for relative hypotension abdomen more distended today, will pursue therapeutic tap gi following ecoli bacteremia source most likely urinary urine and blood growing ESBL changed to merem follow up ID cholelithiasis does not appear to be cholecystitis, will hold off on HIDA for now DM insulin monitor poc dvt prophylaxis - lovenox Quality Stroke Does the patient have a stroke diagnosis?: No VTE Prior VTE?: No VTE Risk Level:: Medical - low VTE Device Contraindication: N/A - Device Ordered VTE Drug Contraindication: Treatment Not Indicated
--- NOTE | 2021-06-19 11:04 | HO.RADPN ---
RADIOLOGY Narrative Narrative: RLQ paracentesis performed using 5fr catheter. L clear yellow fluid removed. Specimen sent.
[2021-06-19] MEDS: Lidocaine HCl 1 % MPF 5 ML VIAL SUBCUT (11:44)
[2021-06-19 11:50] LABS: MN% 76.5 %; PMN% 23.5 %; WBC Peritoneal Fluid 0.189 X10*3/uL
[2021-06-19 11:54] LABS: RBC Peritoneal Fluid < 0.002 X10*6/uL
[2021-06-19 12:07] LABS: Glucose, Whole Blood 336 mg/dL (60-115)
[2021-06-19 13:10] LABS: BF Shift QC OK YES; Lymphocyte Peritoneal Fl 36 %; Monocytes Peritoneal Fl 2 %; Neutrophils Peritoneal Fluid 19 %
[2021-06-19 13:11] LABS: Other Peritioneal Fl 43 %
[2021-06-19] MEDS: Albumin Human 25 % 100 ML IV ×2 (14:34→15:31)
--- NOTE | 2021-06-19 14:41 | MHC.CM.PN ---
NURSE CASTING SUPERVISOR NOTE ELECTRONIC MEDICAL RECORD REVIEWED ALONG WITH CASE DISCUSSED ON MULTIPLE DISCIPLINARY ROUNDS PER CHART DOCUMENTATION TO HAVE PARACENTESIS TODAY, , PATIENT HAS ESBL IN URINE AND BLOOD, ID CONSULT CALLED AND IV ABX CHANGED . DEPARTMENT STORE MANAGER TO CONTINUE TO FOLLOW FOR ANY CHANGES IN DISCHARGE NEEDS,
--- NOTE | 2021-06-19 15:26 | PM.EVENT ---
Event Note Date of Service: 06/19/21 Event Note: 14 days Ertapenem IV
[2021-06-19 16:18] LABS: Glucose, Whole Blood 332 mg/dL (60-115)
[2021-06-19 20:28] LABS: Glucose, Whole Blood 371 mg/dL (60-115)
[2021-06-19] MEDS: LORazepam 2 MG/ML VIAL 1 MG IVPUSH (23:48)
[2021-06-20] VITALS (9 sets, daily range): BP systolic 97–120; BP diastolic 55–68; PULSE 76–102; RESP 16–20; TEMP 36.2–36.6; O2SAT 90–96
[2021-06-20 06:10] LABS: Hematocrit 31.2 % (37.0-47.0); Hemoglobin 10.3 g/dl (12.0-16.0); Mean Corpuscular Hemoglobin 32.8 pg (27.0-33.0); Mean Corpuscular Volume 99.4 fL (80.0-98.0); Platelet Count 126 X10*3/uL (160-400); Red Blood Count 3.14 X10*6/uL (4.20-5.50); White Blood Count 4.6 X10*3/uL (4.8-10.8)
[2021-06-20 06:13] LABS: Anion Gap 11 (12-20); Blood Urea Nitrogen 11 mg/dL (9-16); Calcium 7.6 mg/dL (8.4-10.2); Carbon Dioxide 28 mmol/L (22-29); Chloride 100 mmol/L (96-108); Creatinine Clr Calc Pharmacy 87.8; Estimated Glomerular Filt Rate > 60; Glucose Fasting 298 mg/dL (60-99); Potassium 3.9 mmol/L (3.3-5.1); Sodium 135 mmol/L (135-145)
[2021-06-20 07:19] LABS: Glucose, Whole Blood 292 mg/dL (60-115)
[2021-06-20] MEDS: Spironolactone 25 MG TABLET 50 MG PO ×2 (08:02→17:51)
[2021-06-20] MEDS: Insulin Lispro 100 UNIT/ML 3 ML VIAL SUBCUT ×5 (08:03→21:37)
[2021-06-20] MEDS: Furosemide 40 MG TABLET PO ×2 (08:03→17:50)
[2021-06-20] MEDS: 0.9 % Sodium Chloride Flush 3 ML SYRINGE IVFLUSH ×3 (08:04→21:37)
--- NOTE | 2021-06-20 10:38 | P.PNIM_ITS ---
Subjective Subjective Date of Service: 06/20/21 Interval History: cc: abd pain interval history: still with pain Cardiovascular Cardiovascular: Reports no additional cardiovascular complaints Respiratory Respiratory: Reports no additional respiratory complaints Physical Exam Vital Signs: Vital Signs: Last Vital Signs Temp 97.5 F 06/20/21 07:17 Pulse 87 06/20/21 08:02 Resp 16 06/20/21 07:17 BP 104/60 06/20/21 08:02 Pulse Ox 95 06/20/21 07:17 Body Mass Index 33.6 General: AO X 3, wheepy, anasarca Resp:? CTA bilateral, no accessory muscles used CVS: S1,S2,RRR, GI: soft,? tender,? distended, Neuro:? motor grossly intact, alert Psych: appropriate affect, appropriate insight? Objective Data Active Medications Carvedilol (Carvedilol 3.125 Mg Tablet) 3.125 mg PO BID [facility]; Protocol Last Admin: 06/14/21 21:34 Dose: Not Given Documented by: KATHERINE Non-Admin Reason: low BP related to paracentesis Dextrose (Dextrose 50 % 25 Gm/50 Ml Vial) 25 gm IVPUSH Q15M PRN; Protocol PRN Reason: per Hypoglycemia Standing Ord. Enoxaparin Sodium (Enoxaparin Sodium 40 Mg/0.4 Ml Syringe) 40 mg SUBCUT Q24H [facility] Last Admin: 06/19/21 12:00 Dose: Not Given Documented by: JESSIKA Non-Admin Reason: Physician Held Med Ferrous Sulfate (Ferrous Sulfate 324 Mg Tablet.Dr) 324 mg PO DAILY [facility] Last Admin: 06/20/21 08:08 Dose: Not Given Documented by: JONO Non-Admin Reason: Patient Refused Furosemide (Furosemide 40 Mg Tablet) 40 mg PO DAILY [facility]; Protocol Last Admin: 06/20/21 08:03 Dose: 40 mg Documented by: JONO Glucose (Glucose Gel 15 Gm Gel..Gram.) 15 gm PO Q15M PRN; Protocol PRN Reason: per Hypoglycemia Standing Ord. Meropenem 1 gm/ Sodium (Chloride) 100 mls @ 100 mls/hr IV Q8H [facility] Last Infusion: 06/20/21 06:12 Dose: 0 mls/hr Documented by: DENNIS Insulin Human Lispro (Insulin Lispro 100 Unit/Ml 3 Ml Vial) 0 unit SUBCUT [facility]; Protocol Last Admin: 06/20/21 08:03 Dose: 6 unit Documented by: JONO Lorazepam (Lorazepam 2 Mg/Ml Vial) 1 mg IVPUSH Q6H PRN PRN Reason: anxiety Last Admin: 06/19/21 23:48 Dose: 1 mg Documented by: DENNIS Melatonin (Melatonin 3 Mg Tablet) 6 mg PO BEDTIME PRN PRN Reason: Insomnia Ondansetron HCl (Ondansetron Hcl 4 Mg/2 Ml Vial) 4 mg IVPUSH Q8H PRN PRN Reason: nausea Last Admin: 06/15/21 12:52 Dose: 4 mg Documented by: DANILO Pharmacy Consult (Consult Rx Perform Med Rec) 1 each MISCELLANE ONCE PRN PRN Reason: Consult order Polyethylene Glycol (Polyethylene Glycol 3350 17 Gm Powd.Pack) 17 gm PO DAILY PRN PRN Reason: Constipation Senna (Sennosides 8.6 Mg Tablet) 17.2 mg PO BEDTIME PRN PRN Reason: Constipation Sodium Chloride (0.9 % Sodium Chloride Flush 3 Ml Syringe) 3 ml IVFLUSH [facility] Last Admin: 06/20/21 08:04 Dose: 3 ml Documented by: JONO Spironolactone (Spironolactone 25 Mg Tablet) 50 mg PO BID@0900,1800 [facility]; Protocol Last Admin: 06/20/21 08:02 Dose: 50 mg Documented by: JONO Labs CBC & Chem 7: 06/20/21 05:41 06/20/21 05:41 Labs: Laboratory Results - last 24 hr 06/19/21 06/19/21 06/19/21 10:54 12:00 16:13 MCV MCH MCHC RDW Plt Count MPV Absolute Nucleated RBC Nucleated RBC % (auto) Anion Gap Estim Creat Clear Calc Estimated GFR POC Glucose 336 H 332 H Fasting Glucose Calcium Peritoneal WBC 0.189 Peritoneal RBC < 0.002 Periton Neutrophils 19 Periton Lymphocytes 36 Peritoneal Monocytes 2 Peritoneal Other Cells 43 06/19/21 06/20/21 06/20/21 20:24 05:41 05:41 MCV 99.4 H MCH 32.8 MCHC 33.0 RDW 15.0 Plt Count 126 L MPV 10.0 Absolute Nucleated RBC 0.000 Nucleated RBC % (auto) 0.0 Anion Gap 11 L Estim Creat Clear Calc 87.8 Estimated GFR > 60 POC Glucose 371 H* Fasting Glucose 298 H Calcium 7.6 L Peritoneal WBC Peritoneal RBC Periton Neutrophils Periton Lymphocytes Peritoneal Monocytes Peritoneal Other Cells 06/20/21 07:14 MCV MCH MCHC RDW Plt Count MPV Absolute Nucleated RBC Nucleated RBC % (auto) Anion Gap Estim Creat Clear Calc Estimated GFR POC Glucose 292 H Fasting Glucose Calcium Peritoneal WBC Peritoneal RBC Periton Neutrophils Periton Lymphocytes Peritoneal Monocytes Peritoneal Other Cells Microbiology Microbiology Results: Microbiology 06/19/21 10:54 Gram Stain - Final Abdominal Fluid Routine Culture - Preliminary No growth to date. Anaerobic Culture - Preliminary No growth to date. 06/14/21 15:24 Blood Culture - Final Blood - Venous No growth after 5 days. 06/14/21 20:44 Gram Stain - Final Abdominal Fluid Routine Culture - Final No growth after 2 days Anaerobic Culture - Final NO GROWTH AFTER 5 DAYS Assessment and Plan (1) Abdominal pain: Status: Acute (2) Ascites: Status: Acute Assessment and Plan: 55F presented with abdominal pain etoh liver cirrhosis with abdominal pain s/p paracenteses 06/14/21 - 5L and 06/19/21 -5L given albumin still distended PMN<250, fluid culture no growth lasix, aldactone - will maximize diuretics before labelling refractory and pursuing TIPS check urine sodium excretion hold coreg for relative hypotension gi following ecoli bacteremia source most likely urinary urine and blood growing ESBL ecoli changed to merem ID appreciated, 14 days total, day 314, end jul 01, 2021 follow up repeat blood culture, if negative plan for midline 06/22 cholelithiasis does not appear to be cholecystitis, will hold off on HIDA for now DM insulin monitor poc dvt prophylaxis - [employer] Stroke Does the patient have a stroke diagnosis?: No VTE Prior VTE?: No VTE Risk Level:: Medical - low VTE Device Contraindication: N/A - Device Ordered VTE Drug Contraindication: Treatment Not Indicated
[2021-06-20 11:16] LABS: Glucose, Whole Blood 378 mg/dL (60-115)
[2021-06-20] MEDS: Enoxaparin Sodium 40 MG/0.4 ML SYRINGE SUBCUT (11:47)
[2021-06-20 17:03] LABS: Glucose, Whole Blood 352 mg/dL (60-115)
[2021-06-20 21:06] LABS: Glucose, Whole Blood 400 mg/dL (60-115)
[2021-06-20] MEDS: LORazepam 2 MG/ML VIAL 1 MG IVPUSH (23:48)
[2021-06-21] VITALS (8 sets, daily range): BP systolic 97–122; BP diastolic 56–68; PULSE 86–95; RESP 16–20; TEMP 36.3–37.1; O2SAT 93–97
[2021-06-21] MEDS: ondansetron HCL 4 MG/2 ML VIAL IVPUSH (00:46)
[2021-06-21] MEDS: Melatonin 3 MG TABLET 6 MG PO (00:46)
[2021-06-21 06:07] LABS: Hematocrit 32.6 % (37.0-47.0); Hemoglobin 11.1 g/dl (12.0-16.0); Mean Corpuscular Hemoglobin 33.6 pg (27.0-33.0); Mean Corpuscular Volume 98.8 fL (80.0-98.0); Mean Platelet Volume 9.7 fL (9.4-12.3); Platelet Count 147 X10*3/uL (160-400); Red Cell Distribution Width 14.9 % (11.0-16.0); White Blood Count 5.1 X10*3/uL (4.8-10.8)
[2021-06-21 06:35] LABS: Anion Gap 13 (12-20); Blood Urea Nitrogen 11 mg/dL (9-16); Calcium 7.5 mg/dL (8.4-10.2); Carbon Dioxide 25 mmol/L (22-29); Chloride 99 mmol/L (96-108); Creatinine Clr Calc Pharmacy 85.7; Estimated Glomerular Filt Rate > 60; Glucose Fasting 369 mg/dL (60-99); Potassium 3.9 mmol/L (3.3-5.1); Sodium 133 mmol/L (135-145)
[2021-06-21 07:24] LABS: Glucose, Whole Blood 345 mg/dL (60-115)
[2021-06-21] MEDS: Furosemide 40 MG TABLET PO ×2 (07:37→17:12)
[2021-06-21] MEDS: Insulin Lispro 100 UNIT/ML 3 ML VIAL SUBCUT ×4 (07:37→21:32)
[2021-06-21] MEDS: Spironolactone 25 MG TABLET 50 MG PO ×2 (07:37→17:12)
[2021-06-21] MEDS: 0.9 % Sodium Chloride Flush 3 ML SYRINGE IVFLUSH ×2 (07:38→17:14)
[2021-06-21 11:43] LABS: Glucose, Whole Blood 447 mg/dL (60-115)
[2021-06-21] MEDS: Enoxaparin Sodium 40 MG/0.4 ML SYRINGE SUBCUT (12:25)
--- NOTE | 2021-06-21 12:28 | P.PNIM_ITS ---
Subjective Subjective Date of Service: 06/21/21 Interval History: History obtained via speech correction consultant, patient being followed for E coli UTI, complaining of nausea vomiting and abdominal pain, crying, does not appear to be in any distress, she feels depressed, blood sugars running in 300-400 range Review of Systems General no headache, no dizziness, no fever chills. CVS no chest pain, no palpitation. Respiratory no cough, no sob. Gastrointestinal nausea , vomiting, , abdominal pain Physical Exam Vital Signs: Vital Signs: Last Vital Signs Temp 98.0 F 06/21/21 11:37 Pulse 88 06/21/21 11:37 Resp 16 06/21/21 11:37 BP 105/57 L 06/21/21 11:37 Pulse Ox 96 06/21/21 11:37 Body Mass Index 33.6 General: Alert oriented x3, weeping, in no acute distress Neck no JVD Resp:? CTA bilateral, no accessory muscles used CVS: S1,S2,RRR, GI: soft,? tender to palpation, distended, bowel sounds audible Neuro:? motor grossly intact, alert Extremities bilateral pitting edema Psych: appropriate affect, appropriate insight? Objective Data Active Medications Carvedilol (Carvedilol 3.125 Mg Tablet) 3.125 mg PO BID [facility]; Protocol Last Admin: 06/14/21 21:34 Dose: Not Given Documented by: KATHERINE Non-Admin Reason: low BP related to paracentesis Dextrose (Dextrose 50 % 25 Gm/50 Ml Vial) 25 gm IVPUSH Q15M PRN; Protocol PRN Reason: per Hypoglycemia Standing Ord. Enoxaparin Sodium (Enoxaparin Sodium 40 Mg/0.4 Ml Syringe) 40 mg SUBCUT Q24H [facility] Last Admin: 06/21/21 12:25 Dose: 40 mg Documented by: JONO Ferrous Sulfate (Ferrous Sulfate 324 Mg Tablet.Dr) 324 mg PO DAILY [facility] Last Admin: 06/21/21 07:40 Dose: Not Given Documented by: JONO Non-Admin Reason: Patient Refused Furosemide (Furosemide 40 Mg Tablet) 40 mg PO BID@0900,1800 [facility]; Protocol Last Admin: 06/21/21 07:37 Dose: 40 mg Documented by: JONO Glucose (Glucose Gel 15 Gm Gel..Gram.) 15 gm PO Q15M PRN; Protocol PRN Reason: per Hypoglycemia Standing Ord. Meropenem 1 gm/ Sodium (Chloride) 100 mls @ 100 mls/hr IV Q8H [facility] Last Infusion: 06/21/21 10:49 Dose: 0 mls/hr Documented by: JONO Insulin Human Lispro (Insulin Lispro 100 Unit/Ml 3 Ml Vial) 0 unit SUBCUT QIDACHS [facility]; Protocol Last Admin: 06/21/21 07:37 Dose: 10 unit Documented by: JONO Lorazepam (Lorazepam 2 Mg/Ml Vial) 1 mg IVPUSH Q6H PRN PRN Reason: anxiety Last Admin: 06/20/21 23:48 Dose: 1 mg Documented by: DENNIS Melatonin (Melatonin 3 Mg Tablet) 6 mg PO BEDTIME PRN PRN Reason: Insomnia Last Admin: 06/21/21 00:46 Dose: 6 mg Documented by: DENNIS Ondansetron HCl (Ondansetron Hcl 4 Mg/2 Ml Vial) 4 mg IVPUSH Q8H PRN PRN Reason: nausea Last Admin: 06/21/21 00:46 Dose: 4 mg Documented by: DENNIS Pharmacy Consult (Consult Rx Perform Med Rec) 1 each MISCELLANE ONCE PRN PRN Reason: Consult order Polyethylene Glycol (Polyethylene Glycol 3350 17 Gm Powd.Pack) 17 gm PO DAILY PRN PRN Reason: Constipation Senna (Sennosides 8.6 Mg Tablet) 17.2 mg PO BEDTIME PRN PRN Reason: Constipation Sodium Chloride (0.9 % Sodium Chloride Flush 3 Ml Syringe) 3 ml IVFLUSH [facility] Last Admin: 06/21/21 07:38 Dose: 3 ml Documented by: JONO Spironolactone (Spironolactone 25 Mg Tablet) 50 mg PO BID@0900,1800 [facility]; Protocol Last Admin: 06/21/21 07:37 Dose: 50 mg Documented by: JONO Labs CBC & Chem 7: 06/21/21 05:45 06/21/21 05:45 Labs: Laboratory Results - last 24 hr 06/20/21 06/20/21 06/21/21 16:27 20:16 05:45 MCV 98.8 H MCH 33.6 H MCHC 34.0 RDW 14.9 Plt Count 147 L MPV 9.7 Absolute Nucleated RBC 0.000 Nucleated RBC % (auto) 0.0 Anion Gap Estim Creat Clear Calc Estimated GFR POC Glucose 352 H* 400 H* Fasting Glucose Calcium 06/21/21 06/21/21 06/21/21 05:45 07:16 11:37 MCV MCH MCHC RDW Plt Count MPV Absolute Nucleated RBC Nucleated RBC % (auto) Anion Gap 13 Estim Creat Clear Calc 85.7 Estimated GFR > 60 POC Glucose 345 H 447 H* Fasting Glucose 369 H* Calcium 7.5 L Microbiology Microbiology Results: Microbiology 06/20/21 09:41 Blood Culture - Preliminary Blood - Venous No growth after 24 hours. 06/20/21 09:26 Blood Culture - Preliminary Blood - Venous No growth after 24 hours. 06/19/21 10:54 Gram Stain - Final Abdominal Fluid Routine Culture - Final No growth after 2 days Anaerobic Culture - Preliminary No growth to date. Assessment and Plan (1) Cirrhosis: Status: Acute (2) Ascites: Status: Acute (3) Diabetes: Status: Acute (4) Gallstones: Status: Acute Assessment and Plan: 55F presented with abdominal pain etoh liver cirrhosis with abdominal pain Complaining of persistent abdominal pain, nausea and vomiting clinically looks stable, likely underlying anxiety s/p paracenteses 06/14/21 - 5L and 06/19/21 -5L Abdomen remains distended, abdomen with no guarding, no rigidity. Reviewed all imaging studies and reassured patient PMN<250, fluid culture no growth Continue Lasix 40 mg b.i.d. and Aldactone 50 mg b.i.d. lasix, aldactone, still 1.4 L positive - will give additional dose of lasix, maximize diuretics before labelling refractory and pursuing TIPS BP borderline low will continue to hold Coreg Outpatient follow-up with Dr. Cabral. No alcohol in greater than 6 months ecoli bacteremia source most likely urinary urine and blood growing ESBL ecoli ID appreciated, continue IV meropenem 14 days total, day 4, end jul 01, 2021 follow up repeat blood culture negative times 24 hours, plan for midline 06/22 cholelithiasis does not appear to be cholecystitis, MRCP negative for choledocholithiasis and biliary obstruction, will hold off on HIDA for now DM Significantly elevated blood sugars 477 today, at home was using NovoLog 30 units t.i.d. insulin and Lantus Q weekly will verify dosages with pharmacist will increase dose of insulin sliding scale and resume Lantus Continue diabetic diet and monitor poc dvt prophylaxis - lovenox Quality Stroke Does the patient have a stroke diagnosis?: No VTE Prior VTE?: No VTE Risk Level:: Medical - low VTE Device Contraindication: N/A - Device Ordered VTE Drug Contraindication: Treatment Not Indicated
--- NOTE | 2021-06-21 12:46 | MHC.CM.PN ---
EMR REVIEWED, PT URINE AND INITIAL BLOOD CULTURES PO FOR E. COLI, PER MULTIDISCIPLINARY ROUNDS ONCE 2ND SET OF BC COME BACK PT WILL AVE MIDLINE W/IV ABX, PLAN IS TO RETURN TO [facility], PT IS ON BED HOLD.
[2021-06-21] MEDS: Insulin Glargine,Hum.rec.anlog 100 UNIT/ML 10 ML VIAL 40 UNIT SUBCUT (13:07)
--- NOTE | 2021-06-21 14:17 | P.CDIC_ITS ---
CDI Concurrent Query Documentation Clarification: PHYSICIAN'S DOCUMENTATION REQUEST Date of Query: 06/21/21 1418 Patient Name: Alison Peck Admit Date: 06/14/21 Dear Doctor, A review of the medical record indicates additional documentation may be needed. Please review below and update the documentation accordingly. Clinical Indicators: The purpose of this query is not to question medical judgment, but to ensure the accuracy of the conditions reported for your patient. The diagnosis of Sepsis is documented in the record on 06/16/21 in the GI consult as GNR sepsis. There is either a lack of clinical support for this condi tion in the current medical record, or there is a lack of recognized standard criteria to support the condition. Clinical indicators in the record include: Risk Factors/Clinical Indicators/Treatments WBC on 06/14/21 6.7 T 98.7, P 88, R 20 06/14/21: blood culture: E. Coli 06/15/21: urine culture: E. Coli LA 2.2 H&P on 06/14/21: Bacteremia GI consult 06/16/21: GNR Sepsis The request is for one of the following: * Additional documentation to support the condition. Indicate if this is in lieu of what may be considered standard criteria, and/or support why the standard criteria may not be present for this patient * A more appropriate diagnosis, reflecting the patient's condition Please clarify the documentation of [include the diagnosis]: * Sepsis remains a known or suspected condition for this patient and is further supported by (include additional documentation in the medical record) * Sepsis has been ruled out and a more appropriate diagnosis for this patient?s condition is Bacteremia * Other (please specify) * Unable to determine Use of terms such as suspected, likely, concern for, or probable (associated with a specific diagnosis that is being evaluated, monitored, or treated as if it exists) are acceptable and can be coded in the inpatient setting, when documented at the time of discharge. Thank you, Aminah Petty RN Extension: [phone] Please use your independent medical judgment in providing your response. THIS QUERY IS PART OF THE PERMANENT MEDICAL RECORD Provider Response: Other Other Diagnosis: no sepsis
[2021-06-21 16:35] LABS: Glucose, Whole Blood 373 mg/dL (60-115)
[2021-06-21 20:38] LABS: Glucose, Whole Blood 251 mg/dL (60-115)
[2021-06-22] MEDS: Melatonin 3 MG TABLET 6 MG PO (00:05)
[2021-06-22] MEDS: 0.9 % Sodium Chloride Flush 3 ML SYRINGE IVFLUSH ×3 (00:05→17:34)
[2021-06-22] MEDS: LORazepam 2 MG/ML VIAL 1 MG IVPUSH (00:21)
[2021-06-22 04:00] VITALS: BP 107/62; PULSE 93; RESP 17; TEMP 36.4; O2SAT 95
[2021-06-22 07:35] VITALS: BP 119/63; PULSE 87; RESP 17; TEMP 36.2; O2SAT 94
[2021-06-22 07:39] LABS: Glucose, Whole Blood 163 mg/dL (60-115)
[2021-06-22] MEDS: Insulin Lispro 100 UNIT/ML 3 ML VIAL SUBCUT ×4 (07:51→20:37)
[2021-06-22] MEDS: Spironolactone 25 MG TABLET 50 MG PO ×2 (07:52→17:34)
[2021-06-22] MEDS: Furosemide 40 MG TABLET PO ×2 (07:53→17:35)
[2021-06-22] MEDS: Enoxaparin Sodium 40 MG/0.4 ML SYRINGE SUBCUT (10:42)
[2021-06-22 11:27] VITALS: BP 131/68; PULSE 91; RESP 16; TEMP 36.4; O2SAT 96
[2021-06-22 11:36] LABS: Glucose, Whole Blood 274 mg/dL (60-115)
--- NOTE | 2021-06-22 15:28 | MHC.CM.PN ---
EMR REVIEWED, PLAN FOR MIDLINE PLACEMENT AND IV MEROPENUM FOR TOTAL OF 14 DAYS, TODAY IS DAY 5, ANTIC D/C TOMORROW 06/23, PT IS BED HOLD AT [facility] AND THEY HAVE BEEN UPDATED VIA [employer].
--- NOTE | 2021-06-22 16:35 | HO.MIDLINE ---
PICC Line Insertion MIDLINE INSERTION Diagnosis: [ESBL E-COLI] Indication: [SHELTER ANTIBX] Pertinent Labs: [REVIEWED] Technique: Using Sterile technique including cap/mask/gloves and drape, the RIGHT arm prepped and draped in the usual sterile fashion of full barrier technique with CHG. Using ultrasound guidance, RIGHT BRACHIAL vein was accessed on the first attempt by this RN. A SINGLE LUMEN NON-PASV ([id number]) MIDLINE was positioned. The procedure was performed in Rm. 272. Ultrasound was used to document vein patency and for needle entry. Vascular Grinder Set Up [employer] has released the line to be use and it is currently dressed with a statlock, CHG disc, and tegaderm. Verification has been performed for blood return and line patency. Arm Circumference: [28cm] Equipment: [[employer] POWERGLIDE PRO MIDLINE] Catheter Type: [SINGLE LUMEN NON-PASV MIDLINE ([id number]] Lot #: [[id number]]
[2021-06-22 16:47] VITALS: BP 107/57; PULSE 86; RESP 17; TEMP 36.1; O2SAT 99
[2021-06-22 16:58] LABS: Glucose, Whole Blood 215 mg/dL (60-115)
--- NOTE | 2021-06-22 18:49 | P.PNIM_ITS ---
Subjective Subjective Date of Service: 06/23/21 Interval History: History obtained via interactive designer, patient being followed for E coli UTI, no acute issues overnight, denies acute pain other than groin and anterior abdominal wall itching. Review of Systems General no headache, no dizziness, no fever chills.? CVS no chest pain, no palpitation.? Respiratory no cough, no sob.? Gastrointestinal?no nausea ,no vomiting, no abdominal pain skin complaining of anterior abdominal wall itching Physical Exam Vital Signs: Vital Signs: Last Vital Signs Temp 96.9 F 06/22/21 16:47 Pulse 86 06/22/21 16:47 Resp 17 06/22/21 16:47 BP 107/57 L 06/22/21 16:47 Pulse Ox 99 06/22/21 16:47 Body Mass Index 33.6 General:? Alert or iented x3, in no a cute distress, les s anxious Neck no JVD Resp:? CTA komal ateral, no accesso ry muscles used CV S: S1,S2,RRR, GI: soft,? tender to p alpation, distende d, no change in di stension, bowel so unds audible Neuro :? motor grossly i ntact, alert Extre mities bilateral p itting edema Skin dry and warm Psych : appropriate affe ct, appropriate in sight? Objective Data Active Medications Carvedilol (Carvedilol 3.125 Mg Tablet) 3.125 mg PO BID [facility]; Protocol Last Admin: 06/14/21 21:34 Dose: Not Given Documented by: KATHERINE Non-Admin Reason: low BP related to paracentesis Dextrose (Dextrose 50 % 25 Gm/50 Ml Vial) 25 gm IVPUSH Q15M PRN; Protocol PRN Reason: per Hypoglycemia Standing Ord. Enoxaparin Sodium (Enoxaparin Sodium 40 Mg/0.4 Ml Syringe) 40 mg SUBCUT Q24H [facility] Last Admin: 06/22/21 10:42 Dose: 40 mg Documented by: DANILO Ferrous Sulfate (Ferrous Sulfate 324 Mg Tablet.) 324 mg PO DAILY [facility] Last Admin: 06/22/21 08:53 Dose: Not Given Documented by: DANILO Non-Admin Reason: Patient Refused Furosemide (Furosemide 40 Mg Tablet) 40 mg PO BID@0900,1800 [facility]; Protocol Last Admin: 06/22/21 17:35 Dose: 40 mg Documented by: DANILO Glucose (Glucose Gel 15 Gm Gel..Gram.) 15 gm PO Q15M PRN; Protocol PRN Reason: per Hypoglycemia Standing Ord. Meropenem 1 gm/ Sodium (Chloride) 100 mls @ 100 mls/hr IV Q8H [facility] Last Admin: 06/22/21 17:35 Dose: 100 mls/hr Documented by: DANILO Insulin Human Lispro (Insulin Lispro 100 Unit/Ml 3 Ml Vial) 0 unit SUBCUT QIDACHS [facility]; Protocol Last Admin: 06/22/21 17:34 Dose: 8 unit Documented by: DANILO Lorazepam (Lorazepam 2 Mg/Ml Vial) 1 mg IVPUSH Q6H PRN PRN Reason: anxiety Last Admin: 06/22/21 00:21 Dose: 1 mg Documented by: JOSUE Melatonin (Melatonin 3 Mg Tablet) 6 mg PO BEDTIME PRN PRN Reason: Insomnia Last Admin: 06/22/21 00:05 Dose: 6 mg Documented by: JOSUE Ondansetron HCl (Ondansetron Hcl 4 Mg/2 Ml Vial) 4 mg IVPUSH Q8H PRN PRN Reason: nausea Last Admin: 06/21/21 00:46 Dose: 4 mg Documented by: DENNIS Pharmacy Consult (Consult Rx Perform Med Rec) 1 each MISCELLANE ONCE PRN PRN Reason: Consult order Polyethylene Glycol (Polyethylene Glycol 3350 17 Gm Powd.Pack) 17 gm PO DAILY PRN PRN Reason: Constipation Senna (Sennosides 8.6 Mg Tablet) 17.2 mg PO BEDTIME PRN PRN Reason: Constipation Sodium Chloride (0.9 % Sodium Chloride Flush 3 Ml Syringe) 3 ml IVFLUSH QSHIFT [facility] Last Admin: 06/22/21 17:34 Dose: 3 ml Documented by: DANILO Spironolactone (Spironolactone 25 Mg Tablet) 50 mg PO BID@0900,1800 [facility]; Protocol Last Admin: 06/22/21 17:34 Dose: 50 mg Documented by: DANILO Labs CBC & Chem 7: 06/21/21 05:45 06/21/21 05:45 Labs: Laboratory Results - last 24 hr 06/21/21 06/22/2106/22/21 20:31 07:34 11:19 POC Glucose 251 H 163 H 274 H 06/22/21 16:54 POC Glucose 215 H Microbiology Microbiology Results: Microbiology 06/19/21 10:54 Gram Stain - Final Abdominal Fluid Routine Culture - Final No growth after 2 days Anaerobic Culture - Preliminary No growth to date. 06/20/21 09:41 Blood Culture - Preliminary Blood - Venous No growth after 48 hours. 06/20/21 09:26 Blood Culture - Preliminary Blood - Venous No growth after 48 hours. Assessment and Plan (1) Gallstones: Status: Acute (2) Cirrhosis: Status: Acute (3) Ascites: Status: Acute (4) Diabetes: Status: Acute Assessment and Plan: 55F presented with abdominal pain etoh liver cirrhosis with abdominal pain Abdominal pain improved no further nausea vomiting complaining of abdominal wall itch. s/p paracenteses 06/14/21 - 5L and 06/19/21 -5L Abdomen remains distended, abdomen with no guarding, no rigidity.? Reviewed all imaging studies and reassured patient PMN<250, fluid culture no growth Continue Lasix 40 mg b.i.d. and Aldactone 50 mg b.i.d., fluid balance remains positive, will restrict fluid intake to 1500 mL Recommend close outpatient follow-up with Gastroenterology for possible tips if becomes refractory to diuretic BP remains borderline low will continue to hold Coreg Outpatient follow-up with Dr. Cabral.? No alcohol in greater than 6 months ecoli bacteremia urine and blood growing ESBL ecoli ID appreciated, continue IV meropenem 14 days total, day 12/30, end jul 01, 2021 follow up repeat blood culture negative times 48 hours, plan for midline today. cholelithiasis does not appear to be cholecystitis, MRCP negative for choledocholithiasis and biliary obstruction, will hold off on HIDA for now, patient seen by Gastroenterology DM blood sugars better controlled after adjusting dosage of insulin sliding scale, at home was using NovoLog 30 units t.i.d. insulin and Lantus Q weekly Continue diabetic diet and monitor poc dvt prophylaxis - lovenox Quality Stroke Does the patient have a stroke diagnosis?: No VTE Prior VTE?: No VTE Risk Level:: Medical - low VTE Device Contraindication: N/A - Device Ordered VTE Drug Contraindication: Treatment Not Indicated
[2021-06-22 20:00] VITALS: BP 103/61; PULSE 82; RESP 17; TEMP 36.1; O2SAT 92
[2021-06-22 20:32] LABS: Glucose, Whole Blood 199 mg/dL (60-115)
[2021-06-22] MEDS: 0.9 % Sodium Chloride Flush 10 ML SYRINGE 5 ML IVFLUSH (20:38)
[2021-06-23] VITALS: BP 111/66; PULSE 86; RESP 18; TEMP 37.1
[2021-06-23 03:24] VITALS: BP 120/55; PULSE 94; RESP 18; TEMP 37.2; O2SAT 95
[2021-06-23 07:58] VITALS: BP 106/58; PULSE 92; RESP 18; TEMP 36.5; O2SAT 94
[2021-06-23 08:04] LABS: Glucose, Whole Blood 217 mg/dL (60-115)
[2021-06-23] MEDS: Insulin Lispro 100 UNIT/ML 3 ML VIAL SUBCUT ×2 (08:48→12:31)
[2021-06-23] MEDS: Spironolactone 25 MG TABLET 50 MG PO (09:57)
[2021-06-23] MEDS: Furosemide 40 MG TABLET PO (09:57)
[2021-06-23] MEDS: Enoxaparin Sodium 40 MG/0.4 ML SYRINGE SUBCUT (09:58)
[2021-06-23] MEDS: 0.9 % Sodium Chloride Flush 10 ML SYRINGE 5 ML IVFLUSH ×2 (10:00→12:32)
[2021-06-23] MEDS: 0.9 % Sodium Chloride Flush 3 ML SYRINGE IVFLUSH (10:00)
[2021-06-23 11:21] VITALS: BP 103/65; PULSE 96; RESP 18; TEMP 36.7; O2SAT 96
--- NOTE | 2021-06-23 11:39 | MHC.CM.PN ---
IMM 06/23/21, PT MEDICALLY CLEARED AND WILL D/C BACK TO [facility] WHERE SHE IS A BED HOLD, [facility] FOR BLS TRANSPORT.
[2021-06-23 11:43] LABS: Glucose, Whole Blood 255 mg/dL (60-115)
--- NOTE | 2021-06-23 12:38 | PM.DS ---
DS: Providers Provider Date of Service: 06/23/21 Date of admission: 06/14/21 20:28 Primary care physician: Armen Clark MD Consults: 06/15/21 05:14 Consult to Infectious Diseases Routine Consulting Provider: Melodie Donald Reason for consultation: UTI/ bacteremia 06/15/21 10:58 Consult to Gastroenterology Routine Consulting Provider: Manoj Mesa Reason for consultation: refractory ascites, GNR in blood with low pmn in ascitic fluid, ?SBP DS: Diagnosis Discharge Diagnosis (1) Gallstones: Status: Acute (2) Cirrhosis: Status: Acute (3) Ascites: Status: Acute (4) Diabetes: Status: Acute DS: Summary Hospital Course Hospital Course: Chief Complaint: Abdominal pain 55-year-old female with a past medical history of hyperlipidemia, Grajeda, liver cirrhosis, ascites-receiving frequent therapeutic paracentesis; chronic abdominal pain; recently discharged from the hospital on 06/12/2021 post 3.5 L of paracentesis; presented to the hospital today with a chief complaint of abdominal pain. Patient reported that since discharge she has continued to have abdominal pain which is today worsened; reports 10 out 10 intensity; not improving with the pain medications; hence presented to the hospital. Denies any headaches numbness tingling or focal weakness. At the time of my interview patient is alert awake and appears to be in mild distress secondary to the pain.? Mentating well. Denies any fevers. Denies any urinary symptoms. Denies any chest pain palpitations lightheadedness or dizziness. Review of all other systems is negative except mentioned above ER course: Per ER team patient noted a firm abdomen, distended, being arrange for diagnostic/therapeutic tap.? Pending labs.? Patient was given ceftriaxone empirically.? Patient was given fentanyl with no significant improvement the pain.? Vitals were stable.? Patient was afebrile.? Labs essentially benign at her baseline.? Admitted to the hospital for further management. 55 F presented with abdominal pain due to etoh liver cirrhosis noted to have significant ascites, underwent paracentesis 06/14/21 - 5L and 06/19/21 -5L were removed, fluid studies not consistent with infection, abdomen remains distended, but has no pain, patient has been placed on high-dose diuretics, and recommended fluid restriction 1500 mL, if patient continued to have persistent ascites despite diuretics then she can be considered for tips procedure for being refractory to diuretics, recommend outpatient follow-up with Dr. Cabral. Patient was on Coreg 3.125mg bid for hypertension that has been discontinued due to low blood pressure. Patient noted to have Ecoli bacteremia, both urine and blood growing ESBL ecoli, patient treated with IV meropenem and now being discharged on IV ertapenem to finish a total 14 days of antibiotics ending July 01 2021, repeat blood culture negative midline placed for Patient has history cholelithiasis does not appear to have cholecystitis, MRCP negative for choledocholithiasis and biliary obstruction. DM noted to have elevated blood sugars, at home was using NovoLog 30 units t.i.d. insulin and Lantus Q weekly?, therefore place patient on Lantus 20 units daily and change dose of NovoLog to 20 units t.i.d. before meals Continue diabetic diet and monitor poc Time Spent with Patient Time attestation: Total time spent providing and/or coordinating discharge services: Discharge coordination time: Greater than 30 minutes Quality: Stroke Does the patient have a stroke diagnosis?: No Physical Exam Vital Signs: Vital Signs: Last Vital Signs Temp 98.1 F 06/23/21 11:21 Pulse 96 06/23/21 11:21 Resp 18 06/23/21 11:21 BP 103/65 06/23/21 11:21 Pulse Ox 96 06/23/21 11:21 Body Mass Index 33.6 General:? Alert oriented x3,no acute distress Neck no JVD Resp:? CTA bilateral, no accessory muscles used CVS: S1,S2,RRR, GI:soft,nontender to palpation, distended, bowel sounds audible, no guarding no rigidity Neuro:? motor grossly intact, alert Extremities bilateral pitting edema improving Skin dry and warm Psych: appropriate affect, appropriate insight? DS: Data Data Completed and Pending Completed studies during hospitalization [Text1]: Procedures Drainage of Peritoneal Cavity, Percutaneous Approach (06/09/21) Labs on day of discharge: Laboratory Results - last 24 hr 06/22/21 06/22/21 06/23/21 16:54 20:27 07:57 POC Glucose 215 H 199 H 217 H 06/23/21 11:20 POC Glucose 255 H Preliminary micro results at discharge 06/19/21 10:54 Anaerobic Culture - Preliminary Abdominal Fluid No growth to date. 06/20/21 09:41 Blood Culture - Preliminary Blood - Venous No growth after 48 hours. 06/20/21 09:26 Blood Culture - Preliminary Blood - Venous No growth after 48 hours. Discharge Plan Discharge Patient Disposition: [facility] Discharge Diagnosis: E coli bacteremia E coli UTI Alcoholic liver cirrhosis with abdominal pain Cholelithiasis Referrals: [facility] [Outside] - 1 Day (RESUMPTION OF CARE AND IV MEROPENEM) Armen Clark MD [Primary Care Provider] - 1 Week Discharge Medications: New Lantus U-100 Insulin 100 unit/mL solution 20 unit subcut DAILY Qty: 10 RF: 0 ertapenem 1 gram recon soln 1 g IV DAILY Qty: 7 RF: 0 furosemide 40 mg Tablet 40 mg PO BID@0900,1800 Qty: 60 RF: 0 spironolactone 25 mg Tablet 50 mg PO BID@0900,1800 Qty: 60 RF: 0 Continued carvedilol 3.125 mg tablet 3.125 mg PO BID Qty: 180 RF: 1 sennosides-docusate sodium [Senna Plus] 8.6-50 mg tablet 1 tab PO DAILY RF: 0 polyethylene glycol 3350 [Gavilax] 17 gram/dose powder 17 g PO DAILY PRN (Reason: Constipation) RF: 0 ferrous sulfate 325 mg (65 mg iron) tablet 325 mg PO DAILY RF: 0 Changed insulin aspart U-100 [Novolog Flexpen U-100 Insulin] 100 unit/mL (3 mL) insulin pen 20 unit subcut TID Qty: 15 RF: 1 Discontinued insulin glargine 100 unit/mL (3 mL) insulin pen 100 unit subcut TU RF: 0 cephalexin 500 mg capsule 1 cap PO TID RF: 0 spironolactone 25 mg tablet 25 mg PO DAILY RF: 0 furosemide 20 mg tablet 20 mg PO DAILY RF: 0 Discharge Orders: Discharge Order (Routine); Ordered 06/23/21 Ordered By: Cleo Alvarez Diet: diabetic diet Activity on Discharge: As tolerated Stand Alone Forms: Patient Portal Discharge page Care Plan Goals: Abdominal pain resolved was likely due to abdominal distension and ascites status post paracentesis has persistent distension with no pain no spontaneous bacterial peritonitis, Continue diuretics as prescribed and limit fluid intake to 1500 mL In regard to bacteremia take IV ertapenem end date July 01 Health Concerns: take all medications as prescribed. In regard to diabetes patient was using Lantus 100 units Q Tuesdays therefore change the dosage to Lantus 20 units at bedtime and continued NovoLog 20 units tid before meals, follow blood sugar closely, and use insulin sliding scale Plan of Treatment: Outpatient follow-up with primary care physician in next 7-10 Assessment: As above
[2021-06-23 13:09] LABS: COVID-19 Test Negative (Negative)
== END 2021-06-23 16:05 | disposition skilled nursing facility (03) | DRG 433 ==
LOC: HO.ED 20:24 → HO.EDOVER 21:02 → HO.S3 06-15 08:45
PROVIDERS: Internal Medicine; Radiology Diagnostic Radiology; Admitting Provider Hospitalist; Emergency Provider Emergency Medicine Emergency Medical Services; PCP Internal Medicine; Visit Provider Hospitalist
PROC: 0W9G3ZZ Drainage of Peritoneal Cavity, Percutaneous Approach (ICD-10-PCS; principal; 2021-06-19 10:30)
DX: K70.31 Alcoholic cirrhosis of liver with ascites (principal); N39.0 Urinary tract infection, site not specified; Z16.12 Extended spectrum beta lactamase (ESBL) resistance; R78.81 Bacteremia; E78.5 Hyperlipidemia, unspecified; E87.79 Other fluid overload; B96.20 Unspecified Escherichia coli [E. coli] as the cause of diseases classified elsewhere; K80.20 Calculus of gallbladder without cholecystitis without obstruction; E11.65 Type 2 diabetes mellitus with hyperglycemia; Z20.822 Contact with and (suspected) exposure to COVID-19; Z79.4 Long term (current) use of insulin; Z79.899 Other long term (current) drug therapy
CPT/HCPCS: 36410; 36415; 49083; 74177; 74181; 76705; 80048; 80053; 80076; 81001; 82140; 82947; 83605; 83690; 83735; 85025; 85027; 85610; 85730; 87040; 87071; 87073; 87077; 87086; 87088; 87186; 87205; 87635; 89051; 93005; 96365; 96375; 99285; C1729; J0696; J1170; J1650; J2060; J2185; J2270; J2405; J3010; P9047; Q9967

== ENCOUNTER 2021-06-24 00:58 | Emergency (ER) | payer OTHER, SELFPAY ==
--- NOTE | ~2021-06-24 | CT_ITS ---
EXAMINATION: CT ABDOMEN AND PELVIS WITHOUT CONTRAST CLINICAL INFORMATION: Severe abdominal pain, 05/28, rule out perforation COMPARISON: MRI dated 06/17/[address] dated 06/14/2021. TECHNIQUE: Multidetector volumetric imaging was performed from the superior aspect of the liver through the pubic symphysis. Sagittal and coronal reformatted images were obtained on the technologist's workstation. This CT examination was performed using dose optimization techniques as appropriate, variously including the following: *Automated exposure control *Adjustment of mA and/or kV according to patient size (this includes techniques or standardized protocols for targeted exams where dose is matched to indication/reason for exam; i.e. extremities or head) *Use of iterative reconstruction technique DLP: 732. mGy-cm FINDINGS: LUNG BASES: Mild linear atelectasis and pleural parenchymal scarring are present at the lung bases. LIVER, GALLBLADDER, AND BILIARY TREE: Shrunken liver with a nodular contour, most consistent with cirrhosis. No focal lesions are identified on this unenhanced study, though sensitivity is limited. No dilatation. A 3.7 cm calcified gallstone is present within the gallbladder near the fundus with a smaller stone near the neck. No appreciable findings of cholecystitis. PANCREAS: Unremarkable SPLEEN: Unremarkable. ADRENAL GLANDS: Unremarkable. KIDNEYS AND URETERS: The kidneys are normal in size, shape, and attenuation. No hydronephrosis, hydroureter, or calculi seen. No perinephric stranding. BLADDER: Unremarkable. GASTROINTESTINAL TRACT: Stomach, small bowel, and colon are normal in caliber. Sensitivity for bowel wall thickening and surrounding inflammatory changes is limited on these images due to the absence of intravenous contrast and the obscuration by the surrounding ascitic fluid. There is colonic diverticulosis without evidence of acute diverticulitis on these images. Moderate volume of intra-abdominal ascites is slightly not significant changed as compared to prior. No appreciable internal complexity. ABDOMINAL WALL: Anasarca. Small fat-containing ventral abdominal hernia. LYMPH NODES: Normal. VASCULAR: There is a recanalized periumbilical vein. Other portosystemic venous collaterals are better seen on the prior study, most notably the ascending paraesophageal varices. No acute findings. PELVIC VISCERA: A 4.9 cm right ovarian dermoid is again noted containing fat and calcification. Uterus and left ovary are unremarkable. OSSEOUS STRUCTURES: Mild degenerative spondylosis in the lower lumbar spine. No acute osseous findings. Mild to moderate osteophyte is in the SI joints. CT/CT abdomen pelvis wo con IMPRESSION: 1. No appreciable findings of bowel perforation. The moderate volume of ascites is not significantly changed as compared to prior and limits the sensitivity for bowel inflammation on this unenhanced study. 2. Cirrhotic liver with portosystemic collaterals. 3. Diverticulosis without clear findings of acute diverticulitis. 4. Unchanged 4.9 cm right ovarian dermoid. 5. Anasarca.
[2021-06-24 01:10] VITALS: BP 108/60; PULSE 98; RESP 18; TEMP 37; O2SAT 93; BMI 30.1
--- NOTE | 2021-06-24 01:20 | PC.NURSE ---
PT TO ED VIA AMBULANCE WITH C/O MID ABD PAIN AND BLOATING WHICH STARTED X 1 MONTH AGO. PT CHG INTO GOWN, VS OBTAINED. PT AWAITING FOR MD'S EVAL.
--- NOTE | 2021-06-24 01:41 | PC.NURSE ---
IN ROOM FOR EVAL.
[2021-06-24 01:42] VITALS: BP 106/64; PULSE 98; RESP 16; O2SAT 93
--- NOTE | 2021-06-24 01:49 | ED_ITS ---
HPI - Abdominal Pain General Chief Complaint: Abdominal Pain Stated Complaint: abd pain Time Seen by Provider: 06/24/21 01:09 Source: patient Mode of arrival: EMS Limitations: no limitations History of Present Illness HPI narrative: 55-year-old female with a history of hyperlipidemia, ARGUELLO liver cirrhosis, large volumes of ascites-receiving frequent therapeutic paracentesis; chronic abdominal pain who presents emergency department for evaluation of abdominal pain. The patient was hospitalized here at [facility] from 06/14/2021 until 06/23/2021.During her last admission, the patient grew E coli ESBL in both her blood and her urine and was treated with ertapenem. She was to complete a 14 day course of IV ertapenem to be completed on July 01, 2021. She was discharged to a rehab facility. She states that she had a sudden onset of severe abdominal pain approximately 1 hour prior to coming to the emergency department. She describes the pain as a constant pressure-like sensation. She states the pain is worse on the right side of her abdomen. She states the pain is 10/10. In reviewing her past ED visits and presentations she often has severe 10/10 pain. The patient has had multiple large volume paracenteses with the last 1 being on 06/14/2021 for approximately 5 L was withdrawn. Prior to that she had a large volume paracentesis on 05/08/2021 of 6.1 L. Related Data Home Medications Medication Instructions Recorded Confirmed ferrous sulfate 325 mg (65 mg 325 mg PO DAILY 09/05/20 06/14/21 iron) tablet polyethylene glycol 3350 17 17 g PO DAILY PRN 06/09/21 06/14/21 gram/dose oral powder (Gavilax) sennosides 8.6 mg-docusate sodium 1 tab PO DAILY 06/09/21 06/14/21 50 mg tablet (Senna Plus) Previous Rx's Medication Instructions Recorded carvedilol 3.125 mg tablet 3.125 mg PO BID #180 tab 03/09/21 ertapenem 1 gram solution for 1 g IV DAILY #7 ea 06/23/21 injection furosemide 40 mg tablet 40 mg PO BID@0900,1800 #60 tab 06/23/21 insulin aspart U-100 100 unit/mL 20 unit (0.2 mL) SUBCUT TID #15 cap 06/23/21 (3 mL) subcutaneous pen (Novolog Flexpen U-100 Insulin aspart) insulin glargine 100 unit/mL 20 unit (0.2 mL) SUBCUT DAILY #10 06/23/21 subcutaneous solution (Lantus ml U-100 Insulin) spironolactone 25 mg tablet 50 mg PO BID@0900,1800 #60 tab 06/23/21 Allergies Allergy/AdvReac Type Severity Reaction Status Date / Time No Known Allergies Allergy Verified 09/19/20 09:26 [No Known Allergies*] Review of Systems Review of Systems Yes all other systems are reviewed and are negative Physical Exam Vital Signs: Vital Signs: Last Vital Signs Temp 98.6 F 06/24/21 01:10 Pulse 90 06/24/21 05:29 Resp 16 06/24/21 05:29 BP 113/58 L 06/24/21 05:29 Pulse Ox 94 06/24/21 05:29 Body Mass Index 30.1 Const: Other: Awake, alert, female, appears to be in distress secondary to her abdominal pain, answers all questions appropriately HENMT: Head: Yes normal to inspection, Yes normocephalic and Yes atraumatic Ears: external ears normal General nose exam: Normal external nose present Face and sinus: Yes normal facial exam Mouth: Normal oral and palatal mucosa present Throat: Yes posterior oropharynx normal Eyes: General: appearance normal, both eyes and all related structures Pupils: Equal, round and reactive pupils present Neck: Neck: Yes normal visual inspection, Yes no lymphadenopathy, Yes trachea midline and Yes supple Chest: Chest palpation & inspection: normal inspection of the chest and normal palpation of entire chest wall Resp: Effort & Inspection: normal respiratory effort and able to speak in complete sentences Auscultation: clear to auscultation bilaterally Cardio: Rate: regular rate Rhythm: regular rhythm Heart sounds: S1 normal heart sound present, S2 normal heart sound present and no murmurs GI: Inspection: Yes distended and Yes other (The patient has dressings on both her left and right lower quadrant area ) Palpation (GI): Soft to palpation, Tenderness to palpation present (GI) (Moderate to severe diffuse abdominal tenderness) and no guarding Auscultation: normal bowel sounds : General: Yes no CVA tenderness Back/Spine/Pelvis: Back: no CVA tenderness Skin: General skin exam: no rashes or lesions noted Neuro: Cranial nerves: Yes CN's II-XII intact bilaterally and Yes Equal, round and reactive pupils present Cognition (Neuro): normal cognition Motor exam (neuro): 5/5 motor strength present throughout Extrem: General: Yes normal to inspection Psych: Appearance: grossly normal Speech and movement: Normal speech and movement present Affect: normal affect Attitude: cooperative Thought process: Normal thought process present Thought content: Normal thought content present Course Course Course Narrative: 55-year-old female with a cirrhosis secondary to fatty liver and alcohol use who is currently being treated for E coli ESBL with IV antibiotics at a nursing facility after recently being admitted from 06/14/2021 until 06/23/2021. The patient has had multiple ER visits for severe abdominal pains secondary to her ascites. Patient's vital signs were unremarkable. Patient did have a distended abdomen with diffuse abdominal tenderness. Laboratory evaluation was consistent with her baseline labs. The patient had a CT scan of the abdomen pelvis which did not reveal a clear cause for pain, there was no evidence of perforation. 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 The patient is currently being treated with IV antibiotics therefore I did not believe that she needed to have a diagnostic paracentesis. The patient was treated with hydromorphone 0.5 mg IV x2, lorazepam 1 mg IV x1 and Zofran 4 mg IV. At this time I do not think that the patient has an acute process and that her abdominal pain is chronic caused by her liver failure and ascites. The patient would be discharged back to her care facility for further management of her abdominal pain to complete her course of IV antibiotics MDM - Abdominal Pain Lab Data Result diagrams: 06/24/21 01:58 06/24/21 01:58 Labs: Lab Results 06/24/21 06/24/21 06/24/21 Range/Units 01:58 01:58 01:58 WBC 4.6 L (4.8-10.8) X10*3/uL RBC 3.21 L (4.20-5.50) X10*6/uL Hgb 10.5 L (12.0-16.0) g/dl Hct 31.6 L (37.0-47.0) % MCV 98.4 H (80.0-98.0) fL MCH 32.7 (27.0-33.0) pg MCHC 33.2 (31.0-35.0) g/dl RDW 14.6 (11.0-16.0) % Plt Count 151 L (160-400) X10*3/uL MPV 9.8 (9.4-12.3) fL Immature Gran % (Auto) 0.2 (0.0-0.4) % Neut % (Auto) 56.8 (45-73) % Lymph % (Auto) 29.5 (20-40) % Meagher % (Auto) 13.1 H (2-11) % Eos % (Auto) 0.0 (0-4) % Baso % (Auto) 0.4 (0-2) % Lymph # (Auto) 1.4 (1.2-4.9) X10*3/uL Meagher # (Auto) 0.6 (0.1-1.2) X10*3/uL Eos # (Auto) 0.0 (0.0-0.4) X10*3/uL Baso # (Auto) 0.0 (0.0-0.2) X10*3/uL Abs Immat Gran (auto) 0.01 (0.00-0.03) X10*3/uL Absolute Neuts (auto) 2.6 (2.0-8.3) x10*3/uL Absolute Nucleated RBC 0.000 (0.0-0.012) X10*3/uL Nucleated RBC % (auto) 0.0 (0.0-0.2) /100WBC Sodium 133 L (135-145) mmol/L Potassium 3.6 (3.3-5.1) mmol/L Chloride 98 (96-108) mmol/L Carbon Dioxide 30 H (22-29) mmol/L Anion Gap 9 L (12-20) BUN 12 (9-16) mg/dL Creatinine 0.89 (0.5-1.4) mg/dL Estim Creat Clear Calc 73.8 Estimated GFR > 60 Random Glucose 327 H (60-115) mg/dL Lactic Acid 2.0 (0.5-2.0) mmol/L Calcium 7.6 L (8.4-10.2) mg/dL Total Bilirubin 1.4 H (0.0-1.0) mg/dL AST 32 H (5-31) U/L ALT 16 (0-31) U/L Alkaline Phosphatase 115 (39-117) U/L Total Protein 5.8 L (6.5-8.0) g/dL Albumin 2.5 L (3.5-5.0) g/dL Lipase 51 (8-78) U/L Discharge Plan Discharge Clinical Impression: Abdominal pain, chronic, generalized, Chronic liver failure Patient Disposition: Home, Self-Care Additional Instructions: Your blood work today is unchanged from your baseline labs. The CT scan of the abdomen pelvis did not reveal a clear cause for your abdominal pain, at this time I believe that your abdominal pain is chronic and is related to your liver failure and chronic ascites. You were treated here in the emergency department with Dilaudid (hydromorphone) 0.5 mg IV x2 doses and Ativan 1 mg IV x1 dose. At this time I do not think that there is a need to hospitalize you and we can discharge her back to your care facility. You will need to complete your course of antibiotics for the E coli ESBL infection. The care facility will need to try to help you with your chronic pain. Follow-up with your doctor in 2 days. Please return to the emergency department if your symptoms get worse or if you develop any symptoms that are concerning to you. Prescriptions: No Action carvedilol 3.125 mg tablet 3.125 mg PO BID Qty: 180 RF: 1 sennosides-docusate sodium [Senna Plus] 8.6-50 mg tablet 1 tab PO DAILY RF: 0 polyethylene glycol 3350 [Gavilax] 17 gram/dose powder 17 g PO DAILY PRN (Reason: Constipation) RF: 0 Lantus U-100 Insulin 100 unit/mL solution 20 unit subcut DAILY Qty: 10 RF: 0 ertapenem 1 gram recon soln 1 g IV DAILY Qty: 7 RF: 0 insulin aspart U-100 [Novolog Flexpen U-100 Insulin] 100 unit/mL (3 mL) insulin pen 20 unit subcut TID Qty: 15 RF: 1 furosemide 40 mg Tablet 40 mg PO BID@0900,1800 Qty: 60 RF: 0 spironolactone 25 mg Tablet 50 mg PO BID@0900,1800 Qty: 60 RF: 0 ferrous sulfate 325 mg (65 mg iron) tablet 325 mg PO DAILY RF: 0 PMFSH Past Medical History Attestation statement: The following information was validated with the patient. [facility] Narrative: Past medical history: Cirrhosis with ascites presumably secondary to alcohol use and fatty liver disease. Medical History Cirrhosis Diabetes (~01/31/21) HTN (hypertension) Family History Family History Mother No problems noted. Father No problems noted. Social History Social History Household Members: Caregiver Housing: [facility] Do you presently have visiting nurse or other home services: No Alcohol intake: never Patient Tobacco Use Status: Never used Tobacco Advance Directives: No Advance Directives Information Provided: No Patient : No service: No Current occupational status: disabled
[2021-06-24 02:00] VITALS: BP 108/58; PULSE 94; RESP 16; O2SAT 94
[2021-06-24] MEDS: ondansetron HCL 4 MG/2 ML VIAL IVPUSH (02:00)
[2021-06-24] MEDS: HYDROmorphone HCl 0.5 MG/0.5 ML SYRINGE IVPUSH ×2 (02:00→04:29)
[2021-06-24 02:04] LABS: MANUAL DIFF FLAG NO
[2021-06-24 02:13] LABS: Basophils Percent Auto 0.4 % (0-2); Hematocrit 31.6 % (37.0-47.0); Hemoglobin 10.5 g/dl (12.0-16.0); Imm Gran Abs Auto 0.01 X10*3/uL (0.00-0.03); Imm Gran Pct Auto 0.2 % (0.0-0.4); Lymphocytes Absolute Auto 1.4 X10*3/uL (1.2-4.9); Lymphocytes Percent Auto 29.5 % (20-40); Mean Corpuscular HGB Conc 33.2 g/dl (31.0-35.0); Mean Corpuscular Hemoglobin 32.7 pg (27.0-33.0); Mean Corpuscular Volume 98.4 fL (80.0-98.0); Mean Platelet Volume 9.8 fL (9.4-12.3); Monocytes Absolute Auto 0.6 X10*3/uL (0.1-1.2); Monocytes Percent Auto 13.1 % (2-11); Neutrophils Absolute Auto 2.6 x10*3/uL (2.0-8.3); Neutrophils Percent Auto 56.8 % (45-73); Platelet Count 151 X10*3/uL (160-400); Red Blood Count 3.21 X10*6/uL (4.20-5.50); Red Cell Distribution Width 14.6 % (11.0-16.0); White Blood Count 4.6 X10*3/uL (4.8-10.8)
[2021-06-24 02:45] LABS: Alanine Aminotransferase 16 U/L (0-31); Albumin Level 2.5 g/dL (3.5-5.0); Alkaline Phosphatase 115 U/L (39-117); Anion Gap 9 (12-20); Aspartate Amino Transferase 32 U/L (5-31); Bilirubin Total 1.4 mg/dL (0.0-1.0); Blood Urea Nitrogen 12 mg/dL (9-16); Calcium 7.6 mg/dL (8.4-10.2); Carbon Dioxide 30 mmol/L (22-29); Chloride 98 mmol/L (96-108); Creatinine Clr Calc Pharmacy 73.8; Estimated Glomerular Filt Rate > 60; Glucose Random 327 mg/dL (60-115); Lipase 51 U/L (8-78); Potassium 3.6 mmol/L (3.3-5.1); Sodium 133 mmol/L (135-145); Total Protein 5.8 g/dL (6.5-8.0)
[2021-06-24 04:00] VITALS: BP 110/55; PULSE 91; RESP 16; O2SAT 94
[2021-06-24 04:29] VITALS: RESP 16
--- NOTE | 2021-06-24 04:34 | PC.NURSE ---
PT C/O LOWER ABD PAIN, RATING PAIN 8/10. DR. SCHROEDER AWARE. PT MEDICATED FOR PAIN.
[2021-06-24] MEDS: LORazepam 2 MG/ML VIAL 1 MG IVPUSH (05:27)
[2021-06-24 05:29] VITALS: BP 113/58; PULSE 90; RESP 16; O2SAT 94
--- NOTE | 2021-06-24 08:15 | PC.NURSE ---
Pt discharged to [facility] via ambulance, report given to receiving nurse at the facility. pt reported 2/10 pain on discharge.
== END 2021-06-24 08:21 | disposition home or self-care (01) ==
PROVIDERS: Emergency Provider Emergency Medicine Emergency Medical Services; PCP Internal Medicine
DX: K72.10 Chronic hepatic failure without coma (principal); R10.9 Unspecified abdominal pain; Z79.899 Other long term (current) drug therapy
CPT/HCPCS: 36415; 74176; 80053; 83605; 83690; 85025; 87040; 96374; 96375; 96376; 99284; J1170; J2060; J2405

== ENCOUNTER 2021-12-20 21:16 | Inpatient (IN) | payer OTHER, SELFPAY ==
--- NOTE | ~2021-12-20 | XR_ITS ---
EXAMINATION: XR CHEST CLINICAL INFORMATION: Cough. COMPARISON: 06/09/2021 chest radiographs. TECHNIQUE: Frontal view of the chest was obtained. FINDINGS: No significant abnormality is noted involving the heart, lungs, mediastinum, bony thorax or soft tissues. XR/XR chest 1V IMPRESSION: No acute cardiopulmonary process.
--- NOTE | 2021-12-20 21:23 | ED.GENADULT ---
HPI - General Adult General Chief complaint: General Medical Stated complaint: Hyperglycemia Time Seen by Provider: 12/20/21 21:23 Source: patient and EMS Mode of arrival: EMS Limitations: language barrier History of Present Illness HPI narrative: Patient diabetic on insulin with high blood sugar all the time around 400 range today prior to arrival was more than 500 per patient she is taking her insulin on time as prescribed 20 units 3 times a day of Humalog and 20 units of Lantus in the night. Has not seen a diabetic specialist for long time has not seen her PCP also for some time no chest pain no nausea no vomiting no abdominal pain no fever chills pain slightly weak and dizzy no urinary complaints Related Data Home Medications Medication Instructions Recorded Confirmed blood sugar diagnostic (FreeStyle 12/21/21 12/21/21 Lite Strips) furosemide 20 mg tablet 1 tab DAILY 12/21/21 12/21/21 insulin aspart U-100 100 unit/mL 30 unit SUBCUT TID 12/21/21 12/21/21 (3 mL) subcutaneous pen (Novolog Flexpen U-100 Insulin aspart) pen needle, diabetic 32 gauge x 12/21/21 12/21/21 5/32 (BD Ultra-Fine [place] Pen Needle) spironolactone 25 mg tablet 1 tab PO BID 12/21/21 12/21/21 Previous Rx's Medication Instructions Recorded insulin glargine 100 unit/mL (3 20 unit (0.2 mL) SUBCUT QPM #15 ml 07/19/21 mL) subcutaneous pen (Lantus Solostar U-100 Insulin) carvedilol 3.125 mg tablet 3.125 mg PO BID #180 tab 08/15/21 Allergies Allergy/AdvReac Type Severity Reaction Status Date / Time No Known Allergies Allergy Verified 07/19/21 14:20 [No Known Allergies*] Review of Systems Review of Systems: Yes all other systems are reviewed and are negative [facility] Past Medical History Medical History (Updated 12/21/21 @ 02:35 by Kev Henry MD) Cirrhosis Cirrhosis Diabetes (~01/31/21) HTN (hypertension) Family History Family History (Updated 07/19/21 @ 14:07 by ROGER Martinez) Mother No problems noted. Father No problems noted. Social History Social History Household Members: Caregiver Housing: Apartment Do you presently have visiting nurse or other home services: No Alcohol intake: never Patient Tobacco Use Status: Never used Tobacco e-Cigarette/Vaping Use: Never Used Second Hand Smoke Exposure: No Use of substances other than those prescribed or required for medical reasons: No Advance Directives: No Advance Directives Information Provided: No Patient : No service: No Current occupational status: disabled Cognitive needs: No Hearing needs: No Vision needs: No Physical Exam ED Vital Signs: Vital Signs - 24 hr 12/20/21 21:31 12/21/21 00:00 12/21/21 01:07 Temperature 98.6 F 98.2 F 98.0 F Pulse Rate 85 64 65 Respiratory Rate 20 15 14 Blood Pressure 135/87 123/69 122/64 Pulse Oximetry 98 98 98 BMI result Body Mass Index 25.6 Appearance: Alert. Oriented X3. No acute distress. Eyes: No pallor or icterus ENT: Pharynx normal. Oral Mucosa moist Neck: Normal inspection. Neck supple. CVS: Normal heart rate and rhythm. Pulses normal. Respiratory: No respiratory distress. Equal air entry bilateral, no wheezing/rales/rhonchi Abdomen: Soft and nontender. Bowel sounds are present, no mass palpable, no CVA tenderness Skin: Skin warm and dry. Normal skin color. Normal skin turgor no open wound Extremities: No lower extremity edema. No calf tenderness Neuro: Oriented X 3. No motor deficit. Medical Decision Making MDM Narrative Medical decision making narrative: Patient with hyperglycemia, nonketotic urine shows wbc's , patient denies any urinary complaints no dysuria frequency or foul order, has history of ESBL in the past will admit patient for IV antibiotics will give her ertapenem Blood culture sent lactic acid drawn Lactic acid 2.2 blood sugar improved to 224 Lab Data Lab results reviewed: Yes I reviewed the patient's lab results. Result diagrams: 12/20/21 22:33 12/20/21 22:33 Labs: Lab Results 12/20/21 12/20/21 12/20/21 Range/Units 21:24 22:33 22:33 WBC 4.7 L (4.8-10.8) X10*3/uL RBC 3.82 L (4.20-5.50) X10*6/uL Hgb 12.1 (12.0-16.0) g/dl Hct 36.2 L (37.0-47.0) % MCV 94.8 (80.0-98.0) fL MCH 31.7 (27.0-33.0) pg MCHC 33.4 (31.0-35.0) g/dl RDW 14.5 (11.0-16.0) % Plt Count 102 L D (160-400) X10*3/uL MPV 10.6 (9.4-12.3) fL Immature Gran % (Auto) 0.4 (0.0-0.4) % Neut % (Auto) 67.3 (45-73) % Lymph % (Auto) 22.6 (20-40) % [place] % (Auto) 9.3 (2-11) % Eos % (Auto) 0.0 (0-4) % Baso % (Auto) 0.4 (0-2) % Lymph # (Auto) 1.1 L (1.2-4.9) X10*3/uL [place] # (Auto) 0.4 (0.1-1.2) X10*3/uL Eos # (Auto) 0.0 (0.0-0.4) X10*3/uL Baso # (Auto) 0.0 (0.0-0.2) X10*3/uL Abs Immat Gran (auto) 0.02 (0.00-0.03) X10*3/uL Absolute Neuts (auto) 3.2 (2.0-8.3) x10*3/uL Absolute Nucleated RBC 0.000 (0.0-0.012) X10*3/uL Nucleated RBC % (auto) 0.0 (0.0-0.2) /100WBC Sodium 132 L (135-145) mmol/L Potassium 3.8 (3.3-5.1) mmol/L Chloride 101 (96-108) mmol/L Carbon Dioxide 24 (22-29) mmol/L Anion Gap 11 L (12-20) BUN 11 (9-16) mg/dL Creatinine 1.15 (0.5-1.4) mg/dL Estim Creat Clear Calc 52.3 Estimated GFR 48 POC Glucose 555 H* (60-115) mg/dL Random Glucose 580 H* (60-115) mg/dL Lactic Acid (0.5-2.0) mmol/L Calcium 8.2 L D (8.4-10.2) mg/dL Total Bilirubin 1.2 H (0.0-1.0) mg/dL AST 38 H (5-31) U/L ALT 29 (0-31) U/L Alkaline Phosphatase 205 H D (39-117) U/L Total Protein 7.0 D (6.5-8.0) g/dL Albumin 2.6 L (3.5-5.0) g/dL Urine Color Urine Appearance Urine pH (5.0-8.0) Ur Specific [place] (1.005-1.025) Urine Protein (NEG-TRACE) MG/DL Urine Glucose (UA) (NEG) MG/DL Urine Ketones (NEG) MG/DL Urine Blood (NEG) Urine Nitrite (NEG) Ur Leukocyte Esterase (NEG) Urine RBC (0) /HPF Urine WBC (0-4) /HPF Ur Squamous Epith Cells /LPF Urine Bacteria /LPF Acetone, Qual Negative (Negative) 12/20/21 12/21/21 12/21/21 Range/Units 23:27 01:28 02:26 WBC (4.8-10.8) X10*3/uL RBC (4.20-5.50) X10*6/uL Hgb (12.0-16.0) g/dl Hct (37.0-47.0) % MCV (80.0-98.0) fL MCH (27.0-33.0) pg MCHC (31.0-35.0) g/dl RDW (11.0-16.0) % Plt Count (160-400) X10*3/uL MPV (9.4-12.3) fL Immature Gran % (Auto) (0.0-0.4) % Neut % (Auto) (45-73) % Lymph % (Auto) (20-40) % [place] % (Auto) (2-11) % Eos % (Auto) (0-4) % Baso % (Auto) (0-2) % Lymph # (Auto) (1.2-4.9) X10*3/uL [place] # (Auto) (0.1-1.2) X10*3/uL Eos # (Auto) (0.0-0.4) X10*3/uL Baso # (Auto) (0.0-0.2) X10*3/uL Abs Immat Gran (auto) (0.00-0.03) X10*3/uL Absolute Neuts (auto) (2.0-8.3) x10*3/uL Absolute Nucleated RBC (0.0-0.012) X10*3/uL Nucleated RBC % (auto) (0.0-0.2) /100WBC Sodium (135-145) mmol/L Potassium (3.3-5.1) mmol/L Chloride (96-108) mmol/L Carbon Dioxide (22-29) mmol/L Anion Gap (12-20) BUN (9-16) mg/dL Creatinine (0.5-1.4) mg/dL Estim Creat Clear Calc Estimated GFR POC Glucose 419 H* 224 H (60-115) mg/dL Random Glucose (60-115) mg/dL Lactic Acid (0.5-2.0) mmol/L Calcium (8.4-10.2) mg/dL Total Bilirubin (0.0-1.0) mg/dL AST (5-31) U/L ALT (0-31) U/L Alkaline Phosphatase (39-117) U/L Total Protein (6.5-8.0) g/dL Albumin (3.5-5.0) g/dL Urine Color YELLOW Urine Appearance HAZY Urine pH 6.0 (5.0-8.0) Ur Specific [place] 1.015 (1.005-1.025) Urine Protein NEG (NEG-TRACE) MG/DL Urine Glucose (UA) >=1000 H (NEG) MG/DL Urine Ketones NEG (NEG) MG/DL Urine Blood TRACE (NEG) Urine Nitrite POS H (NEG) Ur Leukocyte Esterase 1+ H (NEG) Urine RBC 0-2 (0) /HPF Urine WBC 30-49 H (0-4) /HPF Ur Squamous Epith Cells 2+ /LPF Urine Bacteria 4+ /LPF Acetone, Qual (Negative) 12/21/21 Range/Units 02:48 WBC (4.8-10.8) X10*3/uL RBC (4.20-5.50) X10*6/uL Hgb (12.0-16.0) g/dl Hct (37.0-47.0) % MCV (80.0-98.0) fL MCH (27.0-33.0) pg MCHC (31.0-35.0) g/dl RDW (11.0-16.0) % Plt Count (160-400) X10*3/uL MPV (9.4-12.3) fL Immature Gran % (Auto) (0.0-0.4) % Neut % (Auto) (45-73) % Lymph % (Auto) (20-40) % [place] % (Auto) (2-11) % Eos % (Auto) (0-4) % Baso % (Auto) (0-2) % Lymph # (Auto) (1.2-4.9) X10*3/uL [place] # (Auto) (0.1-1.2) X10*3/uL Eos # (Auto) (0.0-0.4) X10*3/uL Baso # (Auto) (0.0-0.2) X10*3/uL Abs Immat Gran (auto) (0.00-0.03) X10*3/uL Absolute Neuts (auto) (2.0-8.3) x10*3/uL Absolute Nucleated RBC (0.0-0.012) X10*3/uL Nucleated RBC % (auto) (0.0-0.2) /100WBC Sodium (135-145) mmol/L Potassium (3.3-5.1) mmol/L Chloride (96-108) mmol/L Carbon Dioxide (22-29) mmol/L Anion Gap (12-20) BUN (9-16) mg/dL Creatinine (0.5-1.4) mg/dL Estim Creat Clear Calc Estimated GFR POC Glucose (60-115) mg/dL Random Glucose (60-115) mg/dL Lactic Acid 2.2 H* (0.5-2.0) mmol/L Calcium (8.4-10.2) mg/dL Total Bilirubin (0.0-1.0) mg/dL AST (5-31) U/L ALT (0-31) U/L Alkaline Phosphatase (39-117) U/L Total Protein (6.5-8.0) g/dL Albumin (3.5-5.0) g/dL Urine Color Urine Appearance Urine pH (5.0-8.0) Ur Specific [place] (1.005-1.025) Urine Protein (NEG-TRACE) MG/DL Urine Glucose (UA) (NEG) MG/DL Urine Ketones (NEG) MG/DL Urine Blood (NEG) Urine Nitrite (NEG) Ur Leukocyte Esterase (NEG) Urine RBC (0) /HPF Urine WBC (0-4) /HPF Ur Squamous Epith Cells /LPF Urine Bacteria /LPF Acetone, Qual (Negative) Critical Care Time Critical Care Time Critical Care Time: Yes Total Critical Care Time: 55 Attestation: I spent 55 minutes of critical care, with interventions, assessments, speaking to patient, consultants, and family. Discharge Plan Discharge Clinical Impression: UTI due to extended-spectrum beta lactamase (ESBL) producing Escherichia coli, Diabetes mellitus with hyperglycemia Patient Disposition: Admitted As Inpatient
[2021-12-20 21:30] LABS: Glucose, Whole Blood 555 mg/dL (60-115)
[2021-12-20 21:31] VITALS: BP 135/87; PULSE 85; RESP 20; TEMP 37; O2SAT 98; BMI 25.6
[2021-12-20] MEDS: Insulin Lispro 100 UNIT/ML 3 ML VIAL 14 UNIT SUBCUT (21:54)
[2021-12-20] MEDS: 0.9 % Sodium Chloride 1,000 ML 999 ML IV (21:54)
[2021-12-20 22:42] LABS: Basophils Percent Auto 0.4 % (0-2); Hematocrit 36.2 % (37.0-47.0); Hemoglobin 12.1 g/dl (12.0-16.0); Imm Gran Abs Auto 0.02 X10*3/uL (0.00-0.03); Imm Gran Pct Auto 0.4 % (0.0-0.4); Lymphocytes Absolute Auto 1.1 X10*3/uL (1.2-4.9); Lymphocytes Percent Auto 22.6 % (20-40); MANUAL DIFF FLAG NO; Mean Corpuscular HGB Conc 33.4 g/dl (31.0-35.0); Mean Corpuscular Hemoglobin 31.7 pg (27.0-33.0); Mean Corpuscular Volume 94.8 fL (80.0-98.0); Mean Platelet Volume 10.6 fL (9.4-12.3); Monocytes Absolute Auto 0.4 X10*3/uL (0.1-1.2); Monocytes Percent Auto 9.3 % (2-11); Neutrophils Absolute Auto 3.2 x10*3/uL (2.0-8.3); Neutrophils Percent Auto 67.3 % (45-73); Platelet Count 102 X10*3/uL (160-400); Red Blood Count 3.82 X10*6/uL (4.20-5.50); Red Cell Distribution Width 14.5 % (11.0-16.0); White Blood Count 4.7 X10*3/uL (4.8-10.8)
[2021-12-20 23:00] LABS: Acetone, serum QL Negative (Negative)
[2021-12-20 23:11] LABS: Alanine Aminotransferase 29 U/L (0-31); Albumin Level 2.6 g/dL (3.5-5.0); Alkaline Phosphatase 205 U/L (39-117); Anion Gap 11 (12-20); Aspartate Amino Transferase 38 U/L (5-31); Bilirubin Total 1.2 mg/dL (0.0-1.0); Blood Urea Nitrogen 11 mg/dL (9-16); Calcium 8.2 mg/dL (8.4-10.2); Carbon Dioxide 24 mmol/L (22-29); Chloride 101 mmol/L (96-108); Creatinine Clr Calc Pharmacy 52.3; Estimated Glomerular Filt Rate 48; Glucose Random 580 mg/dL (60-115); Potassium 3.8 mmol/L (3.3-5.1); Sodium 132 mmol/L (135-145)
[2021-12-20 23:35] LABS: Glucose, Whole Blood 419 mg/dL (60-115)
[2021-12-21] VITALS (9 sets, daily range): BP systolic 97–123; BP diastolic 47–69; PULSE 64–90; RESP 14–19; TEMP 36.6–36.8; O2SAT 92–99
[2021-12-21] MEDS: 0.9 % Sodium Chloride 1,000 ML 999 ML IV (00:16)
[2021-12-21] MEDS: Insulin Glargine,Hum.rec.anlog 100 UNIT/ML 10 ML VIAL 30 UNIT SUBCUT (00:17)
[2021-12-21] MEDS: Insulin Lispro 100 UNIT/ML 3 ML VIAL 10 UNIT SUBCUT (00:17)
[2021-12-21 01:36] LABS: Appearance Urine HAZY; Color Urine YELLOW; Glucose Urine UA >=1000 MG/DL (NEG); Leukocyte Esterase Urine 1+ (NEG); Nitrite Urine POS (NEG); Specific Gravity - Urine 1.015 (1.005-1.025); UACC Culture Trigger YES; Urine Blood TRACE (NEG); Urine Ketones NEG (NEG); Urine Protein NEG (NEG-TRACE)
[2021-12-21 01:42] LABS: Bacteria Urine 4+ /LPF; RBC Urine 0-2 /HPF (0); Squamous Epithelial Cell Urine 2+ /LPF; WBC Urine 30-49 /HPF (0-4)
[2021-12-21 02:30] LABS: Glucose, Whole Blood 224 mg/dL (60-115)
[2021-12-21] MEDS: Ertapenem Sodium 1 GM in 0.9 % Sodium Chloride 50 ML IV (02:58)
[2021-12-21 03:11] LABS: Lactic Acid 2.2 mmol/L (0.5-2.0)
[2021-12-21 03:32] LABS: COVID-19 Test Negative (Negative)
--- NOTE | 2021-12-21 04:43 | P.HPHOSP_ITS ---
History of Present Illness Date of Service: 12/21/21 Chief Complaint: hyperglycemia 56-year-old female with past medical history of liver cirrhosis, diabetes, hypertension who presents to the hospital with complaints of hypoglycemia. Patient reports that her sugars were in the 500s, and she was developing left arm sleeping and therefore decided to come to the hospital. Patient also reports that for the past few days she has had urinary frequency and urgency with no dysuria. She denies having any headache, no change in vision, no blurry vision, no slurred speech, no facial droop, no weakness in the arms or legs, no abdominal pain nausea or vomiting. No diarrhea constipation, no lower extremity edema. on arrival to the ED vitals unremarkable labs are found to be significant for glucose of 580, WBC count of 4.7, urea the significantly positive for urine nitrates, leukocyte Estrace and WBC Patient has history of ESBL and therefore will be admitted for management of UTI Review of Systems Review of Systems: Yes all other systems are reviewed and are negative [facility] Medical History Cirrhosis Cirrhosis Diabetes (~01/31/21) HTN (hypertension) Family History Mother No problems noted. Father No problems noted. Social History Household Members: Caregiver Housing: Apartment Do you presently have visiting nurse or other home services: No Alcohol intake: never Patient Tobacco Use Status: Never used Tobacco e-Cigarette/Vaping Use: Never Used Second Hand Smoke Exposure: No Use of substances other than those prescribed or required for medical reasons: No Advance Directives: No Advance Directives Information Provided: No Patient : No service: No Current occupational status: disabled Cognitive needs: No Hearing needs: No Vision needs: No Meds Allergies Allergy/AdvReac Type Severity Reaction Status Date / Time No Known Allergies Allergy Verified 07/19/21 14:20 [No Known Allergies*] Home Medications Medication Instructions Recorded Confirmed Last Taken Type blood sugar diagnostic (FreeStyle 12/21/21 12/21/21 Unknown History Lite Strips) furosemide 20 mg tablet 1 tab DAILY 12/21/21 12/21/21 Unknown History insulin aspart U-100 100 unit/mL 30 unit SUBCUT TID 12/21/21 12/21/21 Unknown History (3 mL) subcutaneous pen (Novolog Flexpen U-100 Insulin aspart) pen needle, diabetic 32 gauge x 12/21/21 12/21/21 Unknown History (BD Ultra-Fine [place] Pen Needle) spironolactone 25 mg tablet 1 tab PO BID 12/21/21 12/21/21 Unknown History Physical Exam Vital Signs and Narrative: Vital Signs: Last Vital Signs Temp 98.0 F 12/21/21 01:07 Pulse 65 12/21/21 01:07 Resp 14 12/21/21 01:07 BP 122/64 12/21/21 01:07 Pulse Ox 98 12/21/21 01:07 BMI result Body Mass Index 25.6 Const: General: cooperative and no acute distress Orientation/consciousness: patient oriented x3 Eyes: General: appearance normal, both eyes and all related structures Pupils: Equal, round and reactive pupils present Resp: Effort & Inspection: normal respiratory effort Auscultation: clear to auscultation bilaterally Cardio: Rate: regular rate Rhythm: regular rhythm GI: Palpation (GI): Soft to palpation Auscultation: normal bowel sounds Skin: General skin exam: no rashes or lesions noted Neuro: General: patient oriented x3 Cranial nerves: Yes Equal, round and reactive pupils present Cognition (Neuro): normal cognition Extrem: General: Yes normal to inspection and Yes no pedal edema Results Labs CBC and Chem 7: 12/20/21 22:33 12/20/21 22:33 Labs: Laboratory Results - last 24 hr 12/20/21 12/20/21 12/20/21 21:24 22:33 22:33 MCV 94.8 MCH 31.7 MCHC 33.4 RDW 14.5 Plt Count 102 L D MPV 10.6 Immature Gran % (Auto) 0.4 Neut % (Auto) 67.3 Lymph % (Auto) 22.6 [place] % (Auto) 9.3 Eos % (Auto) 0.0 Baso % (Auto) 0.4 Lymph # (Auto) 1.1 L [place] # (Auto) 0.4 Eos # (Auto) 0.0 Baso # (Auto) 0.0 Abs Immat Gran (auto) 0.02 Absolute Neuts (auto) 3.2 Absolute Nucleated RBC 0.000 Nucleated RBC % (auto) 0.0 Anion Gap 11 L Estim Creat Clear Calc 52.3 Estimated GFR 48 POC Glucose 555 H* Random Glucose 580 H* Lactic Acid Calcium 8.2 L D Total Bilirubin 1.2 H AST 38 H ALT 29 Alkaline Phosphatase 205 H D Total Protein 7.0 D Albumin 2.6 L Urine Color Urine Appearance Urine pH Ur Specific [place] Urine Protein Urine Glucose (UA) Urine Ketones Urine Blood Urine Nitrite Ur Leukocyte Esterase Urine RBC Urine WBC Ur Squamous Epith Cells Urine Bacteria Acetone, Qual Negative COVID-19 ([facility]) COVID-19 [facility] 12/20/21 12/21/21 12/21/21 23:27 01:28 02:26 MCV MCH MCHC RDW Plt Count MPV Immature Gran % (Auto) Neut % (Auto) Lymph % (Auto) [place] % (Auto) Eos % (Auto) Baso % (Auto) Lymph # (Auto) [place] # (Auto) Eos # (Auto) Baso # (Auto) Abs Immat Gran (auto) Absolute Neuts (auto) Absolute Nucleated RBC Nucleated RBC % (auto) Anion Gap Estim Creat Clear Calc Estimated GFR POC Glucose 419 H* 224 H Random Glucose Lactic Acid Calcium Total Bilirubin AST ALT Alkaline Phosphatase Total Protein Albumin Urine Color YELLOW Urine Appearance HAZY Urine pH 6.0 Ur Specific [place] 1.015 Urine Protein NEG Urine Glucose (UA) >=1000 H Urine Ketones NEG Urine Blood TRACE Urine Nitrite POS H Ur Leukocyte Esterase 1+ H Urine RBC 0-2 Urine WBC 30-49 H Ur Squamous Epith Cells 2+ Urine Bacteria 4+ Acetone, Qual COVID-19 ([facility]ION) COVID-19 [facility] 12/21/21 12/21/21 02:48 03:08 MCV MCH MCHC RDW Plt Count MPV Immature Gran % (Auto) Neut % (Auto) Lymph % (Auto) [place] % (Auto) Eos % (Auto) Baso % (Auto) Lymph # (Auto) [place] # (Auto) Eos # (Auto) Baso # (Auto) Abs Immat Gran (auto) Absolute Neuts (auto) Absolute Nucleated RBC Nucleated RBC % (auto) Anion Gap Estim Creat Clear Calc Estimated GFR POC Glucose Random Glucose Lactic Acid 2.2 H* Calcium Total Bilirubin AST ALT Alkaline Phosphatase Total Protein Albumin Urine Color Urine Appearance Urine pH Ur Specific [place] Urine Protein Urine Glucose (UA) Urine Ketones Urine Blood Urine Nitrite Ur Leukocyte Esterase Urine RBC Urine WBC Ur Squamous Epith Cells Urine Bacteria Acetone, Qual COVID-19 ([facility]VION) Negative COVID-19 Clin Com See Note Assessment and Plan (1) UTI due to extended-spectrum beta lactamase (ESBL) producing Escherichia coli: Status: Acute (2) Diabetes mellitus with hyperglycemia: Status: Acute Plan 48-year-old female with past medical history of hypertension, liver cirrhosis was diabetes presents the hospital with complaints of hyperglycemia found to have UTI # acute UTI with history of ESBL - patient with urinary frequency and urgency - leukopenia, afebrile - at this time will treat with meropenem -infectious disease consulted - follow cultures # hyperglycemia - likely multifactorial in the setting of uncontrolled diabetes as well as acute infection - will resume home insulin - add low-dose sliding scale insulin - diabetic diet - monitor POC q.i.d. a.c. # hypertension - stable - continue home antihypertensives DVT prophylaxis: Lovenox Given history of ESBL UTI, patient will need to be admitted for medically necessary 2 night hospital stay for further management and evaluation Quality Stroke Does the patient have a stroke diagnosis?: No VTE Prior VTE?: No VTE Risk Level:: Medical - moderate - high VTE Device Contraindication: Treatment Not Tolerated VTE Drug Contraindication: N/A - Med Ordered
[2021-12-21 04:55] LABS: Reflex Lactate? Lactic Acid Added
--- NOTE | 2021-12-21 05:36 | PC.NURSE ---
Hospitalist ordered a different antibiotic to be given at 445 but Invanz given at 0230 am. Hospitaist was okay with first dose of new antibiotic given at the next scheduled time which would be 8 hours from Abx given at 0230. Pharmacy notified
[2021-12-21 06:55] LABS: MANUAL DIFF FLAG NO
[2021-12-21 06:59] LABS: Basophils Percent Auto 0.6 % (0-2); Hematocrit 33.8 % (37.0-47.0); Hemoglobin 11.6 g/dl (12.0-16.0); Imm Gran Abs Auto 0.01 X10*3/uL (0.00-0.03); Imm Gran Pct Auto 0.3 % (0.0-0.4); Lymphocytes Absolute Auto 0.9 X10*3/uL (1.2-4.9); Lymphocytes Percent Auto 26.7 % (20-40); Mean Corpuscular HGB Conc 34.3 g/dl (31.0-35.0); Mean Corpuscular Hemoglobin 32.2 pg (27.0-33.0); Mean Corpuscular Volume 93.9 fL (80.0-98.0); Mean Platelet Volume 10.1 fL (9.4-12.3); Monocytes Absolute Auto 0.2 X10*3/uL (0.1-1.2); Monocytes Percent Auto 7.3 % (2-11); Neutrophils Absolute Auto 2.2 x10*3/uL (2.0-8.3); Neutrophils Percent Auto 65.1 % (45-73); Platelet Count 103 X10*3/uL (160-400); Red Cell Distribution Width 14.2 % (11.0-16.0); White Blood Count 3.3 X10*3/uL (4.8-10.8)
[2021-12-21 07:07] LABS: ~Lactic Acid-LAB USE ONLY 1.4 mmol/L (0.5-2.0)
[2021-12-21 07:12] LABS: Anion Gap 10 (12-20); Blood Urea Nitrogen 9 mg/dL (9-16); Calcium 7.6 mg/dL (8.4-10.2); Carbon Dioxide 22 mmol/L (22-29); Chloride 109 mmol/L (96-108); Creatinine Clr Calc Pharmacy 79.1; Estimated Glomerular Filt Rate > 60; Glucose Random 169 mg/dL (60-115); Potassium 3.3 mmol/L (3.3-5.1); Sodium 138 mmol/L (135-145)
[2021-12-21 07:39] LABS: Glucose, Whole Blood 153 mg/dL (60-115)
--- NOTE | 2021-12-21 07:50 | PHA.MEDREC ---
Addendum entered by Smita Shahid [facility] 12/21/21 08:14: spoke with patient in overflow. Verified insulin doses and all other meds Original Note: Pharmacy Consult ? Medication Reconciliation RN has completed the medication reconciliation, pharmacy reviewed.
[2021-12-21] MEDS: Acetaminophen 325 MG TABLET 650 MG PO (08:00)
[2021-12-21] MEDS: Insulin Lispro 100 UNIT/ML 3 ML VIAL SUBCUT ×3 (08:01→21:44)
[2021-12-21] MEDS: ondansetron HCL 4 MG/2 ML VIAL IVPUSH (08:01)
--- NOTE | 2021-12-21 08:47 | MHC.CM.PN ---
PT REPORTS FEELING NAUSEOUS BUT AGREES TO BRIEF INTERVIEW SHE CONFIRMS SHE LIVES ALONE AND HAS FAMILY TO ASSIST PRN SHE DENIES HAVING HOME SERVICES OTHER THAN A [facility] RN CM WHO CHECKS IN PERIODICALLY PT CONFIRMS HER PCP IS JOSE ROSEN PT HAS A HCP ON FILE PT CONFIRMS BEING COVID-19 VACCINATED WITH PFIZER IMM DELIVERED, COPY SENT TO [facility] DC PLAN IS HOME WITH NO SERVICES PT TO ARRANGE TRANSPORT
[2021-12-21 09:17] LABS: Alanine Aminotransferase 23 U/L (0-31); Albumin Level 2.1 g/dL (3.5-5.0); Alkaline Phosphatase 138 U/L (39-117); Aspartate Amino Transferase 36 U/L (5-31); Bilirubin Direct 0.5 mg/dL (0.0-0.5); Bilirubin Total 0.9 mg/dL (0.0-1.0); Lipase 35 U/L (8-78); Total Protein 5.8 g/dL (6.5-8.0)
[2021-12-21 10:02] LABS: INTERNATIONAL NORM RATIO 1.2 (0.9-1.1); Prothrombin Time 13.7 SEC (9.9-13.0)
[2021-12-21] MEDS: oxyCODONE HCl Immed Release 5 MG TABLET PO (10:12)
[2021-12-21] MEDS: Pantoprazole Sodium 40 MG/10 ML VIAL IVPUSH (10:13)
--- NOTE | 2021-12-21 10:28 | HO.PM.IMPN ---
Subjective Subjective Date of Service: 12/21/21 Interval History: seen and examined this morning follow up for UTI reporting some dizziness this am as well as abdominal pain which she states started yesterday she also reports coughing with hemoptysis this morning, her cough also began yesterday. she denies any fever, chills or recent sick contact Review of Systems Review of Systems: Yes all other systems are reviewed and are negative Constitutional Constitutional: Denies chills and Denies fever(s) Cardiovascular Cardiovascular: Denies chest pain, Denies palpitations and Denies dyspnea Respiratory Respiratory: Reports cough, Reports hemoptysis and Denies dyspnea Gastrointestinal Gastrointestinal: Reports abdominal pain, Denies diarrhea and Denies vomiting Genitourinary Genitourinary: Reports dysuria Endocrine Endocrine: Denies palpitations Physical Exam Vital Signs: Vital Signs: Last Vital Signs Temp 98.0 F 12/21/21 01:07 Pulse 84 12/21/21 10:00 Resp 14 12/21/21 10:00 BP 99/47 L 12/21/21 10:00 Pulse Ox 99 12/21/21 10:00 BMI result Body Mass Index 25.6 Const: General: cooperative, alert and awake Nutritional Appearance: average body habitus Orientation/consciousness: patient oriented x3 Eyes: Pupils: Equal, round and reactive pupils present EOM: EOMs intact bilaterally Resp: Effort & Inspection: normal respiratory effort and able to speak in complete sentences Auscultation: clear to auscultation bilaterally Cardio: Rate: regular rate Heart sounds: S1 normal heart sound present and S2 normal heart sound present GI: Other: epigastric tenderness; soft, non-distended +BS Neuro: General: patient oriented x3, moves all extremities and CN's II-XI intact bilaterally Cranial nerves: Yes Equal, round and reactive pupils present Extrem: General: Yes no pedal edema Objective Data Active Medications Acetaminophen (Acetaminophen 325 Mg Tablet) 650 mg PO Q6H PRN PRN Reason: Pain, Mild (Pain Scale 1-3) Last Admin: 12/21/21 08:00 Dose: 650 mg Documented by: NANO Carvedilol (Carvedilol 3.125 Mg Tablet) 3.125 mg PO BID [facility]; Protocol Last Admin: 12/21/21 10:14 Dose: Not Given Documented by: NANO Non-Admin Reason: Physician Held Med Dextrose (Dextrose 50 % 25 Gm/50 Ml Syringe) 25 gm IVPUSH Q15M PRN; Protocol PRN Reason: per Hypoglycemia Standing Ord. Docusate Sodium (Docusate Sodium 100 Mg Capsule) 100 mg PO DAILY PRN PRN Reason: Constipation Enoxaparin Sodium (Enoxaparin Sodium 40 Mg/0.4 Ml Syringe) 40 mg SUBCUT Q24H [facility] Last Admin: 12/21/21 08:09 Dose: Not Given Documented by: NANO Non-Admin Reason: Physician Held Med Furosemide (Furosemide 20 Mg Tablet) 20 mg PO DAILY [facility]; Protocol Glucose (Glucose Gel 15 Gm Gel..Gram.) 15 gm PO Q15M PRN; Protocol PRN Reason: per Hypoglycemia Standing Ord. Meropenem 500 mg/ Sodium (Chloride) 50 mls @ 100 mls/hr IV Q8H [facility] Last Admin: 12/21/21 10:14 Dose: 100 mls/hr Documented by: NANO Lactated Ringer's (Lr) 1,000 mls @ 80 mls/hr IVCONT .[id number] [facility] Insulin Glargine (Insulin Glargine,Hum.Rec.Anlog 100 Unit/Ml 10 Ml Vial) 20 unit SUBCUT BEDTIME [facility] Insulin Human Lispro (Insulin Lispro 100 Unit/Ml 3 Ml Vial) 0 unit SUBCUT QIDACHS [facility]; Protocol Last Admin: 12/21/21 08:01 Dose: 2 unit Documented by: NANO Ondansetron HCl (Ondansetron Hcl 4 Mg/2 Ml Vial) 4 mg IVPUSH Q8H PRN PRN Reason: Nausea and Vomiting Last Admin: 12/21/21 08:01 Dose: 4 mg Documented by: NANO Pantoprazole Sodium (Pantoprazole Sodium 40 Mg/10 Ml Vial) 40 mg IVPUSH DAILY@0630 [facility] Last Admin: 12/21/21 10:13 Dose: 40 mg Documented by: NANO Sodium Chloride (0.9 % Sodium Chloride Flush 3 Ml Syringe) 3 ml IVFLUSH QSHIFT [facility] Last Admin: 12/21/21 08:08 Dose: Not Given Documented by: NANO Non-Admin Reason: Med Not Available Spironolactone (Spironolactone 25 Mg Tablet) 25 mg PO BID [facility]; Protocol Labs CBC & Chem 7: 12/21/21 06:37 12/21/21 06:37 Labs: Laboratory Results - last 24 hr 12/20/21 12/20/21 12/20/21 21:24 22:33 22:33 MCV 94.8 MCH 31.7 MCHC 33.4 RDW 14.5 Plt Count 102 L D MPV 10.6 Immature Gran % (Auto) 0.4 Neut % (Auto) 67.3 Lymph % (Auto) 22.6 [place] % (Auto) 9.3 Eos % (Auto) 0.0 Baso % (Auto) 0.4 Lymph # (Auto) 1.1 L [place] # (Auto) 0.4 Eos # (Auto) 0.0 Baso # (Auto) 0.0 Abs Immat Gran (auto) 0.02 Absolute Neuts (auto) 3.2 Absolute Nucleated RBC 0.000 Nucleated RBC % (auto) 0.0 PT INR Anion Gap 11 L Estim Creat Clear Calc 52.3 Estimated GFR 48 POC Glucose 555 H* Random Glucose 580 H* Lactic Acid Lactic Acid F/U @ 2Hr Calcium 8.2 L D Total Bilirubin 1.2 H Direct Bilirubin AST 38 H ALT 29 Alkaline Phosphatase 205 H D Total Protein 7.0 D Albumin 2.6 L Lipase Urine Color Urine Appearance Urine pH Ur Specific [place] Urine Protein Urine Glucose (UA) Urine Ketones Urine Blood Urine Nitrite Ur Leukocyte Esterase Urine RBC Urine WBC Ur Squamous Epith Cells Urine Bacteria Acetone, Qual Negative COVID-19 ([facility]) COVID-19 Clin Com 12/20/21 12/21/21 12/21/21 23:27 01:28 02:26 MCV MCH MCHC RDW Plt Count MPV Immature Gran % (Auto) Neut % (Auto) Lymph % (Auto) [place] % (Auto) Eos % (Auto) Baso % (Auto) Lymph # (Auto) [place] # (Auto) Eos # (Auto) Baso # (Auto) Abs Immat Gran (auto) Absolute Neuts (auto) Absolute Nucleated RBC Nucleated RBC % (auto) PT INR Anion Gap Estim Creat Clear Calc Estimated GFR POC Glucose 419 H* 224 H Random Glucose Lactic Acid Lactic Acid F/U @ 2Hr Calcium Total Bilirubin Direct Bilirubin AST ALT Alkaline Phosphatase Total Protein Albumin Lipase Urine Color YELLOW Urine Appearance HAZY Urine pH 6.0 Ur Specific [place] 1.015 Urine Protein NEG Urine Glucose (UA) >=1000 H Urine Ketones NEG Urine Blood TRACE Urine Nitrite POS H Ur Leukocyte Esterase 1+ H Urine RBC 0-2 Urine WBC 30-49 H Ur Squamous Epith Cells 2+ Urine Bacteria 4+ Acetone, Qual COVID-19 ([facility]) COVID-19 Clin Com 12/21/21 12/21/21 12/21/21 02:48 03:08 06:37 MCV 93.9 MCH 32.2 MCHC 34.3 RDW 14.2 Plt Count 103 L MPV 10.1 Immature Gran % (Auto) 0.3 Neut % (Auto) 65.1 Lymph % (Auto) 26.7 [place] % (Auto) 7.3 Eos % (Auto) 0.0 Baso % (Auto) 0.6 Lymph # (Auto) 0.9 L [place] # (Auto) 0.2 Eos # (Auto) 0.0 Baso # (Auto) 0.0 Abs Immat Gran (auto) 0.01 Absolute Neuts (auto) 2.2 Absolute Nucleated RBC 0.000 Nucleated RBC % (auto) 0.0 PT INR Anion Gap Estim Creat Clear Calc Estimated GFR POC Glucose Random Glucose Lactic Acid 2.2 H* Lactic Acid F/U @ 2Hr Calcium Total Bilirubin Direct Bilirubin AST ALT Alkaline Phosphatase Total Protein Albumin Lipase Urine Color Urine Appearance Urine pH Ur Specific [place] Urine Protein Urine Glucose (UA) Urine Ketones Urine Blood Urine Nitrite Ur Leukocyte Esterase Urine RBC Urine WBC Ur Squamous Epith Cells Urine Bacteria Acetone, Qual COVID-19 ([facility]) Negative COVID-19 Clin Com See Note 12/21/21 12/21/21 12/21/21 06:37 06:37 07:35 MCV MCH MCHC RDW Plt Count MPV Immature Gran % (Auto) Neut % (Auto) Lymph % (Auto) [place] % (Auto) Eos % (Auto) Baso % (Auto) Lymph # (Auto) [place] # (Auto) Eos # (Auto) Baso # (Auto) Abs Immat Gran (auto) Absolute Neuts (auto) Absolute Nucleated RBC Nucleated RBC % (auto) PT INR Anion Gap 10 L Estim Creat Clear Calc 79.1 Estimated GFR > 60 POC Glucose 153 H Random Glucose 169 H D Lactic Acid Lactic Acid F/U @ 2Hr 1.4 Calcium 7.6 L D Total Bilirubin 0.9 Direct Bilirubin 0.5 AST 36 H ALT 23 Alkaline Phosphatase 138 H D Total Protein 5.8 L Albumin 2.1 L Lipase 35 Urine Color Urine Appearance Urine pH Ur Specific [place] Urine Protein Urine Glucose (UA) Urine Ketones Urine Blood Urine Nitrite Ur Leukocyte Esterase Urine RBC Urine WBC Ur Squamous Epith Cells Urine Bacteria Acetone, Qual COVID-19 ([facility]) COVID-19 Clin Com 12/21/21 09:40 MCV MCH MCHC RDW Plt Count MPV Immature Gran % (Auto) Neut % (Auto) Lymph % (Auto) [place] % (Auto) Eos % (Auto) Baso % (Auto) Lymph # (Auto) [place] # (Auto) Eos # (Auto) Baso # (Auto) Abs Immat Gran (auto) Absolute Neuts (auto) Absolute Nucleated RBC Nucleated RBC % (auto) PT 13.7 H INR 1.2 H Anion Gap Estim Creat Clear Calc Estimated GFR POC Glucose Random Glucose Lactic Acid Lactic Acid F/U @ 2Hr Calcium Total Bilirubin Direct Bilirubin AST ALT Alkaline Phosphatase Total Protein Albumin Lipase Urine Color Urine Appearance Urine pH Ur Specific [place] Urine Protein Urine Glucose (UA) Urine Ketones Urine Blood Urine Nitrite Ur Leukocyte Esterase Urine RBC Urine WBC Ur Squamous Epith Cells Urine Bacteria Acetone, Qual COVID-19 ([facility]) COVID-19 Clin Com Assessment and Plan (1) UTI due to extended-spectrum beta lactamase (ESBL) producing Escherichia coli: Status: Acute Plan 48-year-old female with past medical history of hypertension, liver cirrhosis was diabetes presents the hospital with complaints of hyperglycemia found to have UTI Episode of Hemoptysis hold DVT ppx will repeat H/H this afternoon check coags follow CBC Abdominal Pain will add on LFTs, lipase if abnormal will consider imaging UTI history of ESBL+ e.coli no evidence of sepsis -continue meropenem day #2 -infectious disease consult pending - follow cultures DM with hyperglycemia likely multifactorial in the setting of uncontrolled diabetes as well as acute infection Continue home dose of insulin - continue sliding scale insulin - diabetic diet, follow POCs hypertension BP soft hold aldactone, lasix continue coreg as bp allows Liver cirrhosis with thrombocytopenia hold aldactone, lasix for soft BP DVT prophylaxis: Lovenox Attending: dr. johnson patient requires on going inpatient hospitalization due to UTI with h/o resistent organism, abdominal pain and hemoptysis requiring monitoring and work up Quality Stroke Does the patient have a stroke diagnosis?: No VTE Prior VTE?: No VTE Risk Level:: Medical - moderate - high VTE Device Contraindication: Treatment Not Tolerated VTE Drug Contraindication: N/A - Med Ordered
--- NOTE | 2021-12-21 11:12 | PC.NURSE ---
Pt c/o headache and stomachache this AM. pt vomiting blood tinged sputum. Provider made aware. Medicated with tylenol and zofran PRN. Provider down to assess pt. New pain meds ordered per provider and RN gave to pt. pt resting in hospital bed. does not appear to be in any other pain. callbell and belongings within reach.
[2021-12-21] MEDS: Lactated Ringers 1,000 ML 80 ML IVCONT (11:34)
[2021-12-21 12:55] LABS: Hematocrit 36.9 % (37.0-47.0); Hemoglobin 12.5 g/dl (12.0-16.0)
[2021-12-21 12:57] LABS: Glucose, Whole Blood 146 mg/dL (60-115)
[2021-12-21 16:14] LABS: Glucose, Whole Blood 235 mg/dL (60-115)
[2021-12-21 21:29] LABS: Glucose, Whole Blood 326 mg/dL (60-115)
[2021-12-21] MEDS: Ibuprofen 600 MG TABLET PO (21:43)
[2021-12-21] MEDS: Insulin Glargine,Hum.rec.anlog 100 UNIT/ML 10 ML VIAL 20 UNIT SUBCUT (21:44)
--- NOTE | 2021-12-21 23:07 | W.PM.IDCN ---
History of Present Illness Data of Consult Service Date: 12/21/21 Requesting physician: Margret Whitaker Primary Care Provider: Armen Clark III, MD [facility] Reason for consult: possible infection urine She presents with weakness as well as increase in blood sugar. She has no dysuria or hematuria. She has no fever She has some hemoptysis. She was told she had UTI Review of Systems Review of Systems: Yes all other systems are reviewed and are negative [facility] Past Medical History Medical History (Updated 12/31/21 @ 00:02 by Carine Preciado) Cirrhosis Cirrhosis Diabetes (~01/31/21) Diabetes mellitus with hyperglycemia HTN (hypertension) UTI due to extended-spectrum beta lactamase (ESBL) producing Escherichia coli Family History Family History Mother No problems noted. Father No problems noted. Family history: reviewed and not pertinent Social History Social History Household Members: Children Housing: House Do you presently have visiting nurse or other home services: No Alcohol intake: never Patient Tobacco Use Status: Never used Tobacco e-Cigarette/Vaping Use: Never Used Second Hand Smoke Exposure: No service: No Current occupational status: unemployed and disabled Cognitive needs: No Hearing needs: No Vision needs: No Meds Allergies Allergy/AdvReac Type Severity Reaction Status Date / Time No Known Allergies Allergy Verified 07/19/21 14:20 [No Known Allergies*] Active Medications: Current Medications Acetaminophen (Acetaminophen 325 Mg Tablet) 650 mg PO Q6H PRN PRN Reason: Pain, Mild (Pain Scale 1-3) Last Admin: 12/21/21 08:00 Dose: 650 mg Documented by: Carvedilol (Carvedilol 3.125 Mg Tablet) 3.125 mg PO BID [facility]; Protocol Last Admin: 12/21/21 21:44 Dose: Not Given Documented by: Dextrose (Dextrose 50 % 25 Gm/50 Ml Syringe) 25 gm IVPUSH Q15M PRN; Protocol PRN Reason: per Hypoglycemia Standing Ord. Docusate Sodium (Docusate Sodium 100 Mg Capsule) 100 mg PO DAILY PRN PRN Reason: Constipation Enoxaparin Sodium (Enoxaparin Sodium 40 Mg/0.4 Ml Syringe) 40 mg SUBCUT Q24H [facility] Last Admin: 12/21/21 08:09 Dose: Not Given Documented by: Furosemide (Furosemide 20 Mg Tablet) 20 mg PO DAILY [facility]; Protocol Glucose (Glucose Gel 15 Gm Gel..Gram.) 15 gm PO Q15M PRN; Protocol PRN Reason: per Hypoglycemia Standing Ord. Meropenem 500 mg/ Sodium (Chloride) 50 mls @ 100 mls/hr IV Q8H [facility] Last Infusion: 12/21/21 19:13 Dose: Infused Documented by: Lactated Ringer's (Lr) 1,000 mls @ 80 mls/hr IVCONT .[id number] [facility] Last Admin: 12/21/21 11:34 Dose: 80 mls/hr Documented by: Insulin Glargine (Insulin Glargine,Hum.Rec.Anlog 100 Unit/Ml 10 Ml Vial) 20 unit SUBCUT BEDTIME [facility] Last Admin: 12/21/21 21:44 Dose: 20 unit Documented by: Insulin Human Lispro (Insulin Lispro 100 Unit/Ml 3 Ml Vial) 0 unit SUBCUT QIDACHS [facility]; Protocol Last Admin: 12/21/21 21:44 Dose: 8 unit Documented by: Ondansetron HCl (Ondansetron Hcl 4 Mg/2 Ml Vial) 4 mg IVPUSH Q8H PRN PRN Reason: Nausea and Vomiting Last Admin: 12/21/21 08:01 Dose: 4 mg Documented by: Pantoprazole Sodium (Pantoprazole Sodium 40 Mg/10 Ml Vial) 40 mg IVPUSH DAILY@0630 [facility] Last Admin: 12/21/21 10:13 Dose: 40 mg Documented by: Sodium Chloride (0.9 % Sodium Chloride Flush 3 Ml Syringe) 3 ml IVFLUSH QSHIFT [facility] Last Admin: 12/21/21 17:13 Dose: Not Given Documented by: Spironolactone (Spironolactone 25 Mg Tablet) 25 mg PO BID [facility]; Protocol Home Medications Medication Instructions Recorded Confirmed Last Taken Type blood sugar diagnostic (FreeStyle 12/21/21 12/21/21 Unknown History Lite Strips) furosemide 20 mg tablet 1 tab DAILY 12/21/21 12/21/21 Unknown History insulin aspart U-100 100 unit/mL See Protocol SUBCUT TIDAC 12/21/21 12/21/21 Unknown History (3 mL) subcutaneous pen (Novolog Flexpen U-100 Insulin aspart) pen needle, diabetic 32 gauge x 12/21/21 12/21/21 Unknown History (BD Ultra-Fine [place] Pen Needle) spironolactone 25 mg tablet 1 tab PO BID 12/21/21 12/21/21 Unknown History Physical Exam Vital Signs: Vital Signs: Last Vital Signs Temp 97.9 F 12/21/21 19:30 Pulse 86 12/21/21 19:30 Resp 18 12/21/21 19:30 BP 97/55 L 12/21/21 19:30 Pulse Ox 92 12/21/21 19:30 BMI result Body Mass Index 25.6 Const: General: cooperative Eyes: General: appearance normal, both eyes and all related structures Resp: Effort & Inspection: normal respiratory effort Cardio: Rate: regular rate Rhythm: regular rhythm GI: Palpation (GI): Soft to palpation and nontender Skin: General skin exam: no rashes or lesions noted Extrem: General: Yes normal to inspection Results Labs CBC & Chem 7: 12/23/21 05:30 12/23/21 05:30 Labs: Short CBC 12/21/21 12/21/21 Range/Units 06:37 12:40 WBC 3.3 L (4.8-10.8) X10*3/uL Hgb 11.6 L 12.5 (12.0-16.0) g/dl Hct 33.8 L 36.9 L (37.0-47.0) % Plt Count 103 L (160-400) X10*3/uL BMP 12/20/21 12/21/21 22:33 06:37 Sodium 132 L 138 Potassium 3.8 3.3 Chloride 101 109 H Carbon Dioxide 24 22 BUN 11 9 Creatinine 1.15 0.76 Calcium 8.2 L D 7.6 L D Liver Function 12/20/21 12/21/21 Range/Units 22:33 06:37 Total Bilirubin 1.2 H 0.9 (0.0-1.0) mg/dL Direct Bilirubin 0.5 (0.0-0.5) mg/dL AST 38 H 36 H (5-31) U/L ALT 29 23 (0-31) U/L Alkaline Phosphatase 205 H D 138 H D (39-117) U/L Albumin 2.6 L 2.1 L (3.5-5.0) g/dL Urine 12/21/21 Range/Units 01:28 Urine Color YELLOW Urine Appearance HAZY Urine pH 6.0 (5.0-8.0) Ur Specific [place] 1.015 (1.005-1.025) Urine Protein NEG (NEG-TRACE) MG/DL Urine Glucose (UA) >=1000 H (NEG) MG/DL Assessment and Plan (1) Diabetes mellitus with hyperglycemia: (2) Bacteriuria: Status: Deleted There are no urinary symptoms Patient may have asymptomatic bacteriuria Plan Would treat hyperglycemia. Would await culture May give Ceftriaxone pending culture
[2021-12-22] VITALS (9 sets, daily range): BP systolic 99–131; BP diastolic 54–69; PULSE 51–89; RESP 17–18; TEMP 36.2–37.2; O2SAT 95–98; BMI 25.6
[2021-12-22] MEDS: cefTRIAXone sodium 1 GM in 0.9 % Sodium Chloride 50 ML IV ×3 (00:09→23:48)
[2021-12-22] MEDS: 0.9 % Sodium Chloride Flush 3 ML SYRINGE IVFLUSH ×2 (00:10→17:42)
[2021-12-22] MEDS: Lactated Ringers 1,000 ML 80 ML IVCONT (00:10)
[2021-12-22] MEDS: Pantoprazole Sodium 40 MG/10 ML VIAL IVPUSH (05:49)
[2021-12-22 06:21] LABS: Hematocrit 31.6 % (37.0-47.0); Hemoglobin 10.7 g/dl (12.0-16.0); Mean Corpuscular HGB Conc 33.9 g/dl (31.0-35.0); Mean Corpuscular Hemoglobin 32.5 pg (27.0-33.0); Mean Platelet Volume 11.1 fL (9.4-12.3); Red Blood Count 3.29 X10*6/uL (4.20-5.50); Red Cell Distribution Width 14.9 % (11.0-16.0); White Blood Count 8.1 X10*3/uL (4.8-10.8)
[2021-12-22 06:22] LABS: Platelet Count 88 X10*3/uL (160-400)
[2021-12-22] MEDS: ondansetron HCL 4 MG/2 ML VIAL IVPUSH (06:25)
[2021-12-22 07:04] LABS: Anion Gap 8 (12-20); Blood Urea Nitrogen 19 mg/dL (9-16); Calcium 7.5 mg/dL (8.4-10.2); Carbon Dioxide 24 mmol/L (22-29); Chloride 105 mmol/L (96-108); Creatinine Clr Calc Pharmacy 53.6; Estimated Glomerular Filt Rate 50; Glucose Random 384 mg/dL (60-115); Potassium 3.8 mmol/L (3.3-5.1); Sodium 133 mmol/L (135-145)
[2021-12-22] MEDS: Insulin Lispro 100 UNIT/ML 3 ML VIAL SUBCUT ×5 (07:19→21:31)
[2021-12-22] MEDS: 0.9 % Sodium Chloride 500 ML IV (08:17)
[2021-12-22] MEDS: Lactated Ringers 1,000 ML 100 ML IVCONT ×2 (09:29→21:43)
[2021-12-22 11:38] LABS: Glucose, Whole Blood 256 mg/dL (60-115)
--- NOTE | 2021-12-22 13:06 | P.PNIM_ITS ---
Subjective Subjective Date of Service: 12/22/21 Interval History: seen and examined this morning follow up for UTI no further hemoptysis reporting some abdominal pain, although was observed eating breakfast no vomiting or diarrhea Review of Systems Review of Systems: Yes all other systems are reviewed and are negative Constitutional Constitutional: Denies chills and Denies fever(s) Cardiovascular Cardiovascular: Denies chest pain, Denies palpitations and Denies dyspnea Respiratory Respiratory: Reports cough and Denies dyspnea Gastrointestinal Gastrointestinal: Reports abdominal pain, Reports nausea and Denies vomiting Genitourinary Genitourinary: Reports dysuria Endocrine Endocrine: Denies palpitations Physical Exam Vital Signs: Vital Signs: Last Vital Signs Temp 97.1 F 12/22/21 11:13 Pulse 72 12/22/21 11:13 Resp 18 12/22/21 11:13 BP 114/69 12/22/21 11:13 Pulse Ox 97 12/22/21 11:13 BMI result Body Mass Index 25.6 Const: General: cooperative, alert and awake Nutritional Appearance: average body habitus Orientation/consciousness: patient oriented x3 Eyes: Pupils: Equal, round and reactive pupils present EOM: EOMs intact bilaterally Resp: Effort & Inspection: normal respiratory effort and able to speak in complete sentences Auscultation: clear to auscultation bilaterally Cardio: Rate: regular rate Heart sounds: S1 normal heart sound present and S2 normal heart sound present GI: Inspection: No distended Palpation (GI): Soft to palpation and nontender Neuro: General: patient oriented x3, moves all extremities and CN's II-XI intact bilaterally Cranial nerves: Yes Equal, round and reactive pupils present Extrem: General: Yes no pedal edema Objective Data Active Medications Acetaminophen (Acetaminophen 325 Mg Tablet) 650 mg PO Q6H PRN PRN Reason: Pain, Mild (Pain Scale 1-3) Last Admin: 12/21/21 08:00 Dose: 650 mg Documented by: NANO Carvedilol (Carvedilol 3.125 Mg Tablet) 3.125 mg PO BID [facility]; Protocol Last Admin: 12/22/21 08:16 Dose: Not Given Documented by: DANILO Non-Admin Reason: Decreased Blood Pressure Dextrose (Dextrose 50 % 25 Gm/50 Ml Syringe) 25 gm IVPUSH Q15M PRN; Protocol PRN Reason: per Hypoglycemia Standing Ord. Docusate Sodium (Docusate Sodium 100 Mg Capsule) 100 mg PO DAILY PRN PRN Reason: Constipation Enoxaparin Sodium (Enoxaparin Sodium 40 Mg/0.4 Ml Syringe) 40 mg SUBCUT Q24H [facility] Last Admin: 12/21/21 08:09 Dose: Not Given Documented by: NANO Non-Admin Reason: Physician Held Med Furosemide (Furosemide 20 Mg Tablet) 20 mg PO DAILY [facility]; Protocol Glucose (Glucose Gel 15 Gm Gel..Gram.) 15 gm PO Q15M PRN; Protocol PRN Reason: per Hypoglycemia Standing Ord. Lactated Ringer's (Lr) 1,000 mls @ 100 mls/hr IVCONT .Q10H [facility] Last Admin: 12/22/21 11:12 Dose: Not Given Documented by: DANILO Non-Admin Reason: IV Running Ceftriaxone Sodium 1 gm/ (Sodium Chloride) 50 mls @ 100 mls/hr IV Q24H [facility] Last Infusion: 12/22/21 00:41 Dose: 0 mls/hr Documented by: ANTHONY Insulin Glargine (Insulin Glargine,Hum.Rec.Anlog 100 Unit/Ml 10 Ml Vial) 20 unit SUBCUT BEDTIME [facility] Last Admin: 12/21/21 21:44 Dose: 20 unit Documented by: SULAIMAN Insulin Human Lispro (Insulin Lispro 100 Unit/Ml 3 Ml Vial) 0 unit SUBCUT QIDACHS [facility]; Protocol Last Admin: 12/22/21 11:46 Dose: 6 unit Documented by: DANILO Ondansetron HCl (Ondansetron Hcl 4 Mg/2 Ml Vial) 4 mg IVPUSH Q8H PRN PRN Reason: Nausea and Vomiting Last Admin: 12/22/21 06:25 Dose: 4 mg Documented by: ANTHONY Pantoprazole Sodium (Pantoprazole Sodium 40 Mg/10 Ml Vial) 40 mg IVPUSH DAILY@0630 [facility] Last Admin: 12/22/21 05:49 Dose: 40 mg Documented by: ANTHONY Sodium Chloride (0.9 % Sodium Chloride Flush 3 Ml Syringe) 3 ml IVFLUSH QSHIFT [facility] Last Admin: 12/22/21 07:21 Dose: Not Given Documented by: DANILO Non-Admin Reason: IV Running Spironolactone (Spironolactone 25 Mg Tablet) 25 mg PO BID [facility]; Protocol Labs CBC & Chem 7: 12/22/21 05:57 12/22/21 05:57 Labs: Laboratory Results - last 24 hr 12/21/21 12/21/21 12/22/21 16:06 21:12 05:57 MCV MCH MCHC RDW Plt Count MPV Absolute Nucleated RBC Nucleated RBC % (auto) Anion Gap 8 L Estim Creat Clear Calc 53.6 Estimated GFR 50 POC Glucose 235 H 326 H Random Glucose 384 H* Calcium 7.5 L 12/22/21 12/22/21 05:57 11:19 MCV 96.0 MCH 32.5 MCHC 33.9 RDW 14.9 Plt Count 88 L MPV 11.1 Absolute Nucleated RBC 0.000 Nucleated RBC % (auto) 0.0 Anion Gap Estim Creat Clear Calc Estimated GFR POC Glucose 256 H Random Glucose Calcium Microbiology Microbiology Results: Microbiology 12/21/21 Unknown Urine Culture - Preliminary Urine clean catch - Urine henderson top Gram negative aster 12/21/21 02:48 Blood Culture - Preliminary Blood - Venous No growth after 24 hours. 12/21/21 02:48 Blood Culture - Preliminary Blood - Venous No growth after 24 hours. Assessment and Plan (1) Bacteriuria: Status: Acute Plan 48-year-old female with past medical history of hypertension, liver cirrhosis was diabetes presents the hospital with complaints of hyperglycemia found to have UTI LISBET creatinine up to 1.12 ?r/t soft bp aldactone, lasix on hold will give fluid bolus and continue maintenance fluid follow BMP if creatinine increases further will consult nephrology UTI history of ESBL+ e.coli no evidence of sepsis initially treated with meropenem, seen by ID and changed to ceftriaxone urine culture growing GNR - follow final sensitivities BCx negative to date Episode of Hemoptysis no further episodes DVT ppx d/c Abdominal Pain LFts similar to baseline, lipase negative benign abdominal exam will treat symptomatically DM with hyperglycemia likely multifactorial in the setting of uncontrolled diabetes as well as acute infection Continue home dose of insulin continue SSI, diabetic diet, follow POCs Normocytic anemia slight drop since admission, but within baseline doubt large enough volume of hemoptysis to be from blood loss will check stool occult follow CBC thrombocytopenia secondary to cirrhosis chronic, platelets trending down follow CBC hypertension BP soft hold aldactone, lasix continue coreg as bp allows Liver cirrhosis hold aldactone, lasix for soft BP DVT prophylaxis: lovenox stopped for hemoptysis, will order mechanical devices Attending: dr. johnson patient requires on going inpatient hospitalization due to UTI with h/o resistant organism, abdominal pain requiring monitoring and work up Quality Stroke Does the patient have a stroke diagnosis?: No VTE Prior VTE?: No VTE Risk Level:: Medical - moderate - high VTE Device Contraindication: Treatment Not Tolerated VTE Drug Contraindication: N/A - Med Ordered
[2021-12-22 15:54] LABS: Glucose, Whole Blood 276 mg/dL (60-115)
--- NOTE | 2021-12-22 16:21 | MHC.CM.PN ---
nurse shoe caser note electronic medical record reviewed along with case discussed with staff nurse and the hospitalist , met with patient she reported having abdominal apin and feeling nausea i encouraged her to call her nurse for some medication , per documentation with elver following renal labs aldactone and lasix on hold given iv fluid bolus and maintenance , uti- started on iv abx , evaluated by id physician and iv abx chnged urine cx growing gnr following final senitivities her sugars have been elevated continuing home dose insulin and ssi discharge plan initially home no services , (when asked about the possibility of bna she declined ) case manger to continue to follow for any chnage in dischagr needs pcp patient to call for post hospitals dischagre follow up transportation patient to self arrange
[2021-12-22 20:37] LABS: Glucose, Whole Blood 236 mg/dL (60-115)
[2021-12-22] MEDS: Insulin Glargine,Hum.rec.anlog 100 UNIT/ML 10 ML VIAL 20 UNIT SUBCUT (21:30)
[2021-12-22] MEDS: carvediloL 3.125 MG TABLET PO (21:30)
[2021-12-23] MEDS: Ibuprofen 600 MG TABLET PO (02:17)
[2021-12-23 03:53] VITALS: BP 101/54; RESP 18; TEMP 36.4; O2SAT 93
[2021-12-23] MEDS: Pantoprazole Sodium 40 MG/10 ML VIAL IVPUSH (05:32)
[2021-12-23 05:47] LABS: Hematocrit 33.2 % (37.0-47.0); Hemoglobin 10.9 g/dl (12.0-16.0); Mean Corpuscular HGB Conc 32.8 g/dl (31.0-35.0); Mean Corpuscular Hemoglobin 31.6 pg (27.0-33.0); Mean Corpuscular Volume 96.2 fL (80.0-98.0); Mean Platelet Volume 10.4 fL (9.4-12.3); Platelet Count 84 X10*3/uL (160-400); Red Blood Count 3.45 X10*6/uL (4.20-5.50); Red Cell Distribution Width 14.7 % (11.0-16.0)
[2021-12-23 06:11] LABS: Anion Gap 9 (12-20); Blood Urea Nitrogen 11 mg/dL (9-16); Calcium 7.7 mg/dL (8.4-10.2); Carbon Dioxide 25 mmol/L (22-29); Chloride 104 mmol/L (96-108); Creatinine Clr Calc Pharmacy 70.7; Estimated Glomerular Filt Rate > 60; Glucose Random 260 mg/dL (60-115); Potassium 4.1 mmol/L (3.3-5.1); Sodium 134 mmol/L (135-145)
[2021-12-23 07:06] VITALS: BP 110/67; PULSE 65; RESP 18; TEMP 36.3; O2SAT 98
[2021-12-23 07:26] LABS: Glucose, Whole Blood 203 mg/dL (60-115)
[2021-12-23] MEDS: Insulin Lispro 100 UNIT/ML 3 ML VIAL SUBCUT ×2 (07:57→12:02)
[2021-12-23] MEDS: carvediloL 3.125 MG TABLET PO (07:57)
[2021-12-23 11:23] VITALS: BP 110/66; PULSE 63; RESP 18; TEMP 36.5; O2SAT 96
[2021-12-23 11:54] LABS: Glucose, Whole Blood 189 mg/dL (60-115)
--- NOTE | 2021-12-23 12:55 | PM.DS ---
DS: Providers Provider Date of Service: 12/23/21 Date of admission: 12/21/21 04:40 Date of discharge: 12/23/21 Primary care physician: Armen Clark III, MD Consults: 12/21/21 02:29 Consult to Infectious Diseases Routine Consulting Provider: Melodie Donald Reason for consultation: esbl 12/21/21 04:42 Consult to Infectious Diseases Routine Consulting Provider: Melodie Donald Reason for consultation: esbl uti Has provider been notified: No Attending physician on discharge: [facility] Discharging clinician: Margret Whitaker DS: Diagnosis Discharge Diagnosis (1) UTI (urinary tract infection): Status: Acute DS: Summary Hospital Course Hospital Course: From H&P on day of admission ?56-year-old female with past medical history of liver cirrhosis, diabetes, hypertension who presents to the hospital with complaints of hypoglycemia.? Patient reports that her sugars were in the 500s, and she was developing left arm sleeping and therefore decided to come to the hospital.? Patient also reports that for the past few days she has had urinary frequency and urgency with no dysuria.? She denies having any headache, no change in vision, no blurry vision, no slurred speech, no facial droop, no weakness in the arms or legs, no abdominal pain nausea or vomiting.? No diarrhea constipation, no? lower extremity edema. ?on arrival to the ED vitals unremarkable ?labs are found to be significant for glucose of 580, WBC count of 4.7,? urea the significantly positive for urine nitrates, leukocyte Estrace and WBC Patient has history of ESBL and therefore will be admitted for management of UTI Hospital course by problem LISBET. creatinine up to 1.15, her diuretics were held and she was treated with IVF and her creatinine improved back to baseline. UTI history of ESBL+ e.coli. She was initially treated with meropenem, seen by ID and changed to ceftriaxone. Urine returned growing E coli that was sensitive to ceftriaxone. She will be discharged home to complete course of Ceftin. Blood cultures have remained negative to date. Episode of Hemoptysis. This was likely secondary to DVT prophylaxis in combination with her known history of thrombocytopenia. Hemoptysis resolved after DVT prophylaxis was discontinued. Chest x-ray showed no acute pathology. Patient had no respiratory symptoms. H&H has remained at her baseline. She is encouraged to follow up with PCP with any recurrence Liver cirrhosis. She should continue her home diuretics and follow up with GI/PCP as scheduled Thrombocytopenia. Chronic. Likely related to liver cirrhosis. Recommend outpatient follow up Time Spent with Patient Time attestation: Total time spent providing and/or coordinating discharge services: Discharge coordination time: Greater than 30 minutes Quality: Safe Use of Opioids Does Pt have an Active Cancer Diagnosis on the Problem List?: No Quality: Stroke Does the patient have a stroke diagnosis?: No Physical Exam Vital Signs: Vital Signs: Last Vital Signs Temp 97.7 F 12/23/21 11:23 Pulse 63 12/23/21 11:23 Resp 18 12/23/21 11:23 BP 110/66 12/23/21 11:23 Pulse Ox 96 12/23/21 11:23 BMI result Body Mass Index 25.6 DS: Data Data Completed and Pending Completed studies during hospitalization [Text1]: Procedures Drainage of Peritoneal Cavity, Percutaneous Approach (06/14/21) Insertion of Infusion Device into Right Brachial Vein, Percutaneous Approach (06/14/21) Labs on day of discharge: Laboratory Results - last 24 hr 12/22/21 12/22/21 12/23/21 15:40 20:31 05:30 WBC 6.0 RBC 3.45 L Hgb 10.9 L Hct 33.2 L MCV 96.2 MCH 31.6 MCHC 32.8 RDW 14.7 Plt Count 84 L MPV 10.4 Absolute Nucleated RBC 0.000 Nucleated RBC % (auto) 0.0 Sodium Potassium Chloride Carbon Dioxide Anion Gap BUN Creatinine Estim Creat Clear Calc Estimated GFR POC Glucose 276 H 236 H Random Glucose Calcium 12/23/21 12/23/21 12/23/21 05:30 07:07 11:25 WBC RBC Hgb Hct MCV MCH MCHC RDW Plt Count MPV Absolute Nucleated RBC Nucleated RBC % (auto) Sodium 134 L Potassium 4.1 Chloride 104 Carbon Dioxide 25 Anion Gap 9 L BUN 11 Creatinine 0.85 Estim Creat Clear Calc 70.7 Estimated GFR > 60 POC Glucose 203 H 189 H Random Glucose 260 H Calcium 7.7 L Preliminary micro results at discharge 12/21/21 02:48 Blood Culture - Preliminary Blood - Venous No growth after 48 hours. 12/21/21 02:48 Blood Culture - Preliminary Blood - Venous No growth after 48 hours. Discharge Plan Discharge Patient Disposition: Home, Self-Care Discharge Diagnosis: UTI LISBET Referrals: Armen Clark III, MD [Primary Care Provider] - 1 Week Discharge Medications: New cefuroxime axetil 500 mg tablet 500 mg PO BID 4 Days Qty: 8 0RF Continued carvedilol 3.125 mg tablet 3.125 mg PO BID Qty: 180 1RF spironolactone 25 mg tablet 1 tab PO BID 0RF furosemide 20 mg tablet 1 tab DAILY 0RF insulin aspart U-100 [Novolog Flexpen U-100 Insulin] 100 unit/mL (3 mL) insulin pen See Protocol unit subcut TIDAC 0RF Protocol: Insulin Correction Scale Less than or equal to 110 ---- Give (units): 0 111 to 150 Give (units): 0 151 to 200 Give (units): 2 201 to 250 Give (units): 4 251 to 300 Give (units): 6 301 to 350 Give (units): 8 Greater than 350 Give (units): 10 Call MD if Blood Glucose > : 350 Lantus Solostar U-100 Insulin 100 unit/mL (3 mL) insulin pen 20 unit subcut QPM Qty: 15 3RF No Action (DME) FreeStyle Lite Strips Strip See Rx Instructions .Route 0RF Rx Instructions: Test 3 times daily (DME) pen needle, diabetic [BD Ultra-Fine Rocío Pen Needle] 32 gauge x 5/32 needle See Rx Instructions .ROUTE 0RF Rx Instructions: Use 4 needles daily Discharge Orders: Discharge Order (Routine); Ordered 12/23/21 Ordered By: Margret Whitaker Activity on Discharge: As tolerated Stand Alone Forms: Patient Portal Discharge page Care Plan Goals: see below Health Concerns: UTI LISBET - resolved hemoptysis - resolved Plan of Treatment: Complete course of antibiotics as prescribed Call to schedule follow-up appointment with PCP Assessment: see discharge summary Discharge Date/Time: 12/23/21 16:44
--- NOTE | 2021-12-23 13:45 | MHC.CM.PN ---
pt medically cleared for d/c home self care, pt will arrange transport
[2021-12-23 16:32] LABS: Glucose, Whole Blood 194 mg/dL (60-115)
== END 2021-12-23 16:44 | disposition home or self-care (01) | DRG 690 ==
LOC: HO.ED 12-21 02:35 → HO.EDOVER 12-21 04:57 → HO.S3 12-21 13:39
PROVIDERS: Admitting Provider Internal Medicine; Emergency Provider Internal Medicine; PCP Internal Medicine; Visit Provider Physician Assistant Medical
DX: N39.0 Urinary tract infection, site not specified (principal); R04.2 Hemoptysis; K74.60 Unspecified cirrhosis of liver; I10 Essential (primary) hypertension; D69.59 Other secondary thrombocytopenia; D64.9 Anemia, unspecified; B96.20 Unspecified Escherichia coli [E. coli] as the cause of diseases classified elsewhere; E11.65 Type 2 diabetes mellitus with hyperglycemia; Z20.822 Contact with and (suspected) exposure to COVID-19; Z87.440 Personal history of urinary (tract) infections; Z79.4 Long term (current) use of insulin; Z79.899 Other long term (current) drug therapy
CPT/HCPCS: 36415; 71045; 80048; 80053; 80076; 81001; 82009; 82947; 83605; 83690; 85014; 85018; 85025; 85027; 85610; 87040; 87086; 87088; 87186; 87635; 96361; 96365; 99285; 99291; J0696; J1335; J2185; J2405

== ENCOUNTER 2022-04-24 19:43 | Inpatient (IN) | payer OTHER, SELFPAY ==
--- NOTE | ~2022-04-24 | CT_ITS ---
EXAMINATION: CT HEAD WITHOUT CONTRAST CLINICAL INFORMATION: Lethargy COMPARISON: Head CT from 07/30/2020 TECHNIQUE: Contiguous axial imaging was performed from the skull base to vertex without intravenous administration of contrast. This CT examination was performed using dose optimization techniques as appropriate, variously including the following: *Automated exposure control *Adjustment of mA and/or kV according to patient size (this includes techniques or standardized protocols for targeted exams where dose is matched to indication/reason for exam; i.e. extremities or head) *Use of iterative reconstruction technique DLP: 671 mGy-cm FINDINGS: The brain parenchyma has normal attenuation. The henderson-white matter differentiation is well preserved. No evidence of an acute major vascular territory infarction. No intracranial hemorrhage, extra-axial fluid collection, focal mass effect or midline shift. The ventricles have normal size and configuration; no hydrocephalus. The brainstem and cerebellum have a normal appearance. The cerebellar tonsils are in normal position. There is atherosclerotic calcification of vertebral arteries and cavernous carotid arteries. The calvarium is intact. There are findings of mucus/secretions within the sphenoid sinus, and mild mucoperiosteal thickening of the right sphenoid. Otherwise, the visualized paranasal sinuses are well aerated and without air-fluid levels. The mastoid air cells and middle ear cavities are well aerated. The orbits and globes are unremarkable. The temporomandibular joints are normal. CT/CT head/brain wo IV con IMPRESSION: * No acute intracranial pathology compared to the prior head CT from 07/30/2020. * Mucoperiosteal thickening and secretions of sphenoid sinuses. Otherwise, the paranasal sinuses are well aerated.
--- NOTE | ~2022-04-24 | US_ITS ---
EXAMINATION: US ABDOMEN LIMITED CLINICAL INFORMATION: Ascites, SBP. Rule out portal venous thrombosis. COMPARISON: CT abdomen 04/24/2022 TECHNIQUE: Real-time imaging of the right upper quadrant abdominal viscera. FINDINGS: PANCREAS: The pancreas obscured by overlying gas.. LIVER: The liver is small in size. The liver contour is normal. Parenchymal echogenicity is increased. No focal hepatic lesion. There is no intrahepatic biliary duct dilatation seen. The umbilical vein is recanalized. GALLBLADDER: The gallbladder is physiologically distended with multiple echogenic stones. COMMON BILE DUCT: Normal in caliber measuring 0.36 cm in diameter. RIGHT KIDNEY: The right kidney is not clearly visualized. However there is a complex mass suspected in the right flank.. On CT there is a subcapsular collection surrounding the the lateral cortex of right kidney.. FREE FLUID: There is a large amount of free fluid.. US/US abdomen limited IMPRESSION: Hepatic steatosis with recanalized umbilical vein. Cholelithiasis without wall thickening. Large ascites. Complex lesion seen in the right flank is likely subcapsular complex collection compressing the kidney on recent CT abdomen exam 04/24/2022.
--- NOTE | ~2022-04-24 | CT_ITS ---
EXAMINATION: CT ABDOMEN AND PELVIS WITH CONTRAST CLINICAL INFORMATION: Right lower quadrant pain COMPARISON: 06/24/2021 TECHNIQUE: Multidetector volumetric images were obtained from the superior aspect of the liver through the pubic symphysis following administration 85 mL of Omnipaque 350 intravenous contrast. Sagittal and coronal reformatted images were obtained on the technologist's workstation. Oral contrast: No This CT examination was performed using dose optimization techniques as appropriate, variously including the following: *Automated exposure control *Adjustment of mA and/or kV according to patient size (this includes techniques or standardized protocols for targeted exams where dose is matched to indication/reason for exam; i.e. extremities or head) *Use of iterative reconstruction technique DLP: 687 mGy-cm FINDINGS: LUNG BASES: Linear bibasilar atelectasis. Visualized cardiac structures are unremarkable. LIVER, GALLBLADDER, AND BILIARY TREE: Cirrhotic liver morphology. Normal attenuation of the liver with no focal liver lesion. No biliary ductal dilatation. Recanalization of the umbilical vein noted. There is a small to moderate volume of ascites, similar to prior imaging. Prominent stone in the gallbladder fundus with additional smaller stones. No definite gallbladder wall thickening. Evaluation is limited in the setting of ascites. PANCREAS: Unremarkable. SPLEEN: Borderline enlarged spleen measuring 14 cm CC. No focal splenic lesion. ADRENAL GLANDS: Unremarkable. KIDNEYS AND URETERS: Symmetric bilateral renal enhancement. There is a new fluid attenuation structure extending posteriorly from the midpole of the right kidney. This measures 7.1 x 6.2 x 7.3 cm. This results in concave deformity of the renal parenchyma. There appears to be fat within the lesion along the superior margin. The rim is mildly enhancing. BLADDER: Unremarkable. GASTROINTESTINAL TRACT: The stomach is unremarkable. Gastric and paraesophageal varices noted. Normal caliber small bowel. No obstruction. No colonic wall thickening. No free air. ABDOMINAL WALL: No significant hernia is appreciated. LYMPH NODES: Normal. VASCULAR: Normal caliber aorta with mild atherosclerotic calcification. Upper abdominal varices. PELVIC VISCERA: Anteverted uterus. There is a fat and calcified attenuation mass in the right adnexa, consistent with a dermoid. This is unchanged from prior. This measures 4.4 cm. OSSEOUS STRUCTURES: No acute or suspicious osseous abnormality. Mild degenerative changes throughout the spine. Mild to moderate degenerative change of both hips. CT/CT abdomen pelvis w IV con IMPRESSION: Cirrhotic liver. Findings of portal hypertension with ascites, varices, and recanalized umbilical vein. There is a new appearance of a mixed fluid and fat attenuation structure along the posterior aspect of the midpole of the right kidney resulting in deformity of the kidney. This could be a subcapsular collection/resolving hematoma. Suggest follow-up imaging to evaluate for change/evolution. Right adnexal dermoid again noted. Fleischner guidelines were followed.
--- NOTE | ~2022-04-24 | US_ITS ---
EXAMINATION: ULTRASOUND DUPLEX ABDOMEN ARTERIAL AND VENOUS. CLINICAL INFORMATION: Cirrhosis and ascites. S/P PE COMPARISON: None TECHNIQUE: Abdominal duplex and venous study was performed. FINDINGS: There is normal hepatopedal flow seen in extrahepatic portal vein, main, right and left portal veins. There is normal antegrade flow seen in main hepatic, right and left hepatic arteries. There is normal antegrade flow seen in the main, right and left hepatic veins. The spleen measures 12.9 cm. The splenic vein is patent. There is recanalized umbilical vein. The portal splenic confluence is not well visualized due to overlying bowel gas and large amount of free fluid. US/US duplex arterial venous comp IMPRESSION: Normal hepatopedal flow seen in the portal vein and its branches. Normal antegrade flow seen in the hepatic artery and its branches. Widely patent hepatic veins with normal antegrade flow. Recanalized umbilical vein. Portal systemic confluence is not well visualized.
--- NOTE | ~2022-04-24 | CT_ITS ---
EXAMINATION: CT HEAD WITHOUT CONTRAST (STROKE PROTOCOL) CLINICAL INFORMATION: Stroke protocol. Suspected Aphasia. COMPARISON: CT of the head done yesterday. TECHNIQUE: Contiguous axial imaging was performed from the skull base to vertex without intravenous administration of contrast. This CT examination was performed using dose optimization techniques as appropriate, variously including the following: *Automated exposure control *Adjustment of mA and/or kV according to patient size (this includes techniques or standardized protocols for targeted exams where dose is matched to indication/reason for exam; i.e. extremities or head) *Use of iterative reconstruction technique DLP: 602.13 mGy-cm FINDINGS: There is no evidence of acute intracranial hemorrhage or territorial infarction. No abnormal mass effect or midline shift is seen. Levy to white matter differentiation is well preserved. No extra-axial fluid collections are identified. The ventricles are normal in size. There is no abnormal attenuation within the brain parenchyma. The osseous structures and soft tissues are normal. The mastoid air cells and visualized portions of the paranasal sinuses are well aerated, except for persistent mucoperiosteal thickening involving the right half of the sphenoid sinus, similar to prior study. CT/CT head for stroke IMPRESSION: No acute intracranial pathology. Persistent right-sided sphenoid sinus disease. No significant change since prior study dated 04/27/2022. This critical result was discussed with Dr Mejia at 2:07 PM on 04/28/2022. It was ascertained that the content and urgency of the report was understood at the time of direct communication.
--- NOTE | ~2022-04-24 | US_ITS ---
EXAMINATION: US ABDOMEN LIMITED CLINICAL INFORMATION: Ascites. COMPARISON: Abdomen ultrasound 04/27/2022. Abdomen CT of 04/24/2022. TECHNIQUE: Limited sonographic imaging of the abdomen performed to evaluate ascites. FINDINGS: The 4 quadrants of the abdomen were evaluated and, overall, a moderate amount of simple appearing ascitic fluid is identified. The amount of ascites appears to have decreased compared to the abdomen CT of 04/24/2022. US/US abdomen limited IMPRESSION: Moderate volume of abdominal ascites is present.
--- NOTE | ~2022-04-24 | US_ITS ---
EXAMINATION: ULTRASOUND-GUIDED PARACENTESIS CLINICAL INFORMATION: Ascites. Rule out PE COMPARISON: Previous exam 04/25/2022 TECHNIQUE: Procedure and risks and benefits including bleeding, infection and low blood pressure were discussed with the patient and informed consent was obtained. The right lower quadrant was prepped and draped in usual sterile fashion. The skin and soft tissues were anesthetized with 1% lidocaine plain. Using ultrasound guidance and a 5 Sami rapid centesis catheter, access to the ascitic fluid was obtained. 4 L of clear yellow fluid was removed. Specimen was sent for diagnostic studies as requested by the ordering physician. FINDINGS: There is a moderate to large amount of ascites. US/US paracentesis abd w/image IMPRESSION: Ultrasound-guided paracentesis.
--- NOTE | ~2022-04-24 | US_ITS ---
EXAMINATION: US ULTRASOUND-GUIDED PARACENTESIS CLINICAL INFORMATION: Ascites. Abdominal pain. COMPARISON: Previous CT from yesterday of the abdomen and pelvis. TECHNIQUE: Procedure and risks and benefits including bleeding, infection and low blood pressure were discussed with the patient and informed consent was obtained. The left lower quadrant was prepped and draped in usual sterile fashion. The skin and soft tissues were anesthetized with 1% lidocaine plain. Using ultrasound guidance and a 5 Bengali Rapid centesis catheter, access to the ascitic fluid was obtained. 3 L of clear yellow fluid was removed. Diagnostic specimen was sent for Gram stain, culture and cell count as ordered. FINDINGS: There is a moderate amount of ascites. US/US paracentesis abd w/image IMPRESSION: Ultrasound-guided paracentesis.
[2022-04-24 19:57] VITALS: BP 140/82; BP 153/83; PULSE 110; PULSE 99; RESP 20; TEMP 36.8; O2SAT 100; O2SAT 96; BMI 30.2
[2022-04-24 20:16] VITALS: BP 129/77; PULSE 93; RESP 12; TEMP 36.8; O2SAT 95
--- NOTE | 2022-04-24 20:16 | ED.GENADULT ---
HPI - General Adult General Chief complaint: Abdominal Pain Stated complaint: ABD PAIN Time Seen by Provider: 04/24/22 19:47 Source: patient Limitations: no limitations History of Present Illness HPI narrative: This is a 56-year-old female with a history of cirrhosis, type 2 diabetes, gallstones, who complains of abdominal pain worse in the right lower abdomen as well as nausea and vomiting since last evening. Patient states she vomited several times. She denies any fever. She denies any constipation or diarrhea. She denies any dysuria or urinary frequency. Related Data Home Medications Medication Instructions Recorded Confirmed blood sugar diagnostic (FreeStyle 12/21/21 12/21/21 Lite Strips) furosemide 20 mg tablet 1 tab DAILY 12/21/21 12/21/21 Previous Rx's Medication Instructions Recorded cefuroxime axetil 500 mg tablet 500 mg PO BID 4 days #8 tabs 12/23/21 insulin glargine 100 unit/mL (3 20 unit (0.2 mL) subcut QPM #15 mL 01/10/22 mL) subcutaneous pen (Lantus Solostar U-100 Insulin) carvedilol 3.125 mg tablet 3.125 mg PO BID #180 tabs 01/11/22 spironolactone 25 mg tablet 25 mg PO BID 90 days #180 tabs 01/11/22 insulin aspart U-100 100 unit/mL See Protocol subcut BID #15 mL 04/06/22 (3 mL) subcutaneous pen (Novolog Flexpen U-100 Insulin aspart) pen needle, diabetic 32 gauge x #100 ea 04/11/22 (BD Ultra-Fine Rocío Pen Needle) Allergies Allergy/AdvReac Type Severity Reaction Status Date / Time No Known Allergies Allergy Verified 07/19/21 14:20 [No Known Allergies*] Review of Systems Review of Systems: Yes all other systems are reviewed and are negative Constitutional: Constitutional: Reports as per HPI and Denies fever(s) Eyes: Eyes: Reports as per HPI and Reports no additional eye complaints ENT: Reports system reviewed and no additional complaints, except as documented, Reports as per HPI, Denies nasal congestion, Denies nasal discharge and Denies sore throat Cardiovascular: Cardiovascular: Reports as per HPI, Denies chest pain and Denies dyspnea Respiratory: Respiratory: Reports as per HPI, Denies cough and Denies dyspnea Gastrointestinal: Gastrointestinal: Reports as per HPI, Reports abdominal pain, Denies diarrhea, Reports nausea and Reports vomiting Genitourinary: Genitourinary: Reports as per HPI, Denies hematuria, Denies urinary frequency and Denies dysuria Musculoskeletal: Musculoskeletal: Reports no additional musculoskeletal complaints and Denies numbness Integumentary/Breasts: Skin/Breast: Reports as per HPI and Denies rash Neurologic: Reports as per HPI, Denies focal weakness and Denies numbness Psychiatric: Psychiatric: Reports no additional psychiatric complaints and Reports as per HPI Endocrine: Endocrine: Reports no additional endocrine complaints and Reports as per HPI Hematologic/Lymphatic: Hematologic/Lymphatic: Reports no additional hematologic/lymphatic complaints, Reports as per HPI and Reports other (No peripheral edema) [facility] Past Medical History Medical History (Updated 04/24/22 @ 23:46 by Mark Santana MD) Cirrhosis Cirrhosis Diabetes (~01/31/21) Diabetes mellitus with hyperglycemia HTN (hypertension) UTI due to extended-spectrum beta lactamase (ESBL) producing Escherichia coli Family History Family History Mother No problems noted. Father No problems noted. Social History Social History Household Members: Children Housing: House Do you presently have visiting nurse or other home services: No Alcohol intake: never Patient Tobacco Use Status: Never used Tobacco e-Cigarette/Vaping Use: Never Used Second Hand Smoke Exposure: No Use of substances other than those prescribed or required for medical reasons: No Advance Directives: No Advance Directives Information Provided: No Patient : No service: No Current occupational status: unemployed and disabled Cognitive needs: No Hearing needs: No Vision needs: No Physical Exam ED Vital Signs: Vital Signs - 24 hr 04/24/22 19:57 04/24/22 22:00 Temperature 98.2 F Pulse Rate 99 95 Respiratory Rate 20 20 Blood Pressure 140/82 H Pulse Oximetry 96 94 Oxygen Delivery Method Room Air Room Air BMI result Body Mass Index 30.2 Const General: no acute distress Orientation/consciousness: patient oriented x3 HENMT Head: Yes normal to inspection General nose exam: Normal external nose present Mouth: moist mucous membranes Throat: Yes posterior oropharynx normal, Yes tonsils normal and Yes uvula midline Eyes Eyelids: Yes eyelids normal Conjunctivae: conjunctivae normal Pupils: Equal, round and reactive pupils present Neck Neck: Yes supple Resp Effort & Inspection: normal respiratory effort Auscultation: clear to auscultation bilaterally Cardio Rate: regular rate Rhythm: regular rhythm Heart sounds: S1 normal heart sound present, S2 normal heart sound present, no gallops, no murmurs and no rubs GI Inspection: Yes distended (Dull to percussion consistent with ascites) Palpation (GI): Firmness to palpation present (GI) and Tenderness to palpation present (GI) (Worse right lower quadrant) Auscultation: normal bowel sounds Skin General skin exam: other (Warm and dry) Neuro General: patient oriented x3 and CN's II-XI intact bilaterally Cranial nerves: Yes Equal, round and reactive pupils present Extrem General: Yes no pedal edema Psych Affect: normal affect Attitude: cooperative Procedures Paracentesis Time Out Performed: Yes Local Anesthetic: lidocaine 2% and with epi Amount of anesthesia used (mL): 4 Fluid: other (Could not aspirate) Post Procedure Exam: awake, alert Patient Tolerated Procedure: well Complications: none Medical Decision Making MDM Narrative Medical decision making narrative: Patient with a history of cirrhosis, type 2 diabetes, complains of abdominal pain and vomiting. Abdominal pain was worse in the right lower quadrant. Patient does have fairly tense ascites. Patient is afebrile with no elevated white blood cell count, normal anion gap, doubt spontaneous bacterial peritonitis. Paracentesis was attempted both therapeutically and diagnostically with ultrasound guidance, and despite seen copious fluid and puncturing where there was clearly a lot of fluid, no fluid could be aspirated. Attempt was made both on the right side inferior lateral to the umbilicus about 3 in, and the left lower quadrant. Patient to be admitted to medicine for further evaluation. Since her centesis was unsuccessful in the ED, it can be done by Interventional Radiology tomorrow. Patient was treated with morphine and Zofran, normal saline 1 L IV. Lab Data Result diagrams: 04/24/22 20:08 04/24/22 20:49 Labs: Lab Results 04/24/22 04/24/22 04/24/22 Range/Units 20:08 20:49 20:49 WBC 9.1 (4.8-10.8) X10*3/uL RBC 4.30 D (4.20-5.50) X10*6/uL Hgb 13.8 D (12.0-16.0) g/dl Hct 41.1 D (37.0-47.0) % MCV 95.6 (80.0-98.0) fL MCH 32.1 (27.0-33.0) pg MCHC 33.6 (31.0-35.0) g/dl RDW 15.1 (11.0-16.0) % Plt Count 184 D (160-400) X10*3/uL MPV 9.9 (9.4-12.3) fL Absolute Nucleated RBC 0.000 (0.0-0.012) X10*3/uL Nucleated RBC % (auto) 0.0 (0.0-0.2) /100WBC Sodium 136 (135-145) mmol/L Potassium 3.7 (3.3-5.1) mmol/L Chloride 102 (96-108) mmol/L Carbon Dioxide 25 (22-29) mmol/L Anion Gap 13 (12-20) BUN 15 (9-16) mg/dL Creatinine 1.05 (0.5-1.4) mg/dL Estim Creat Clear Calc 61.9 Estimated GFR 54 Random Glucose 159 H (60-115) mg/dL Calcium 7.6 L (8.4-10.2) mg/dL Magnesium 1.6 (1.6-2.6) mg/dL Total Bilirubin 1.3 H (0.0-1.0) mg/dL Direct Bilirubin 0.8 H (0.0-0.5) mg/dL AST 27 (5-31) U/L ALT 17 (0-31) U/L Alkaline Phosphatase 148 H (39-117) U/L Total Protein 6.9 (6.5-8.0) g/dL Albumin 2.3 L (3.5-5.0) g/dL Lipase 52 (8-78) U/L Imaging Data CT abdomen and pelvis with IV contrast: Radiologist's impression: IMPRESSION: Cirrhotic liver. Findings of portal hypertension with ascites, varices, and recanalized umbilical vein. ? There is a new appearance of a mixed fluid and fat attenuation structure along the posterior aspect of the midpole of the right kidney resulting in deformity of the kidney. This could be a subcapsular collection/resolving hematoma. Suggest follow-up imaging to evaluate for change/evolution. ? Right adnexal dermoid again noted. Discharge Plan Discharge Clinical Impression: Cirrhosis, Ascites, Abdominal pain, Vomiting Patient Disposition: Admitted as Observation
[2022-04-24 20:20] LABS: Hematocrit 41.1 % (37.0-47.0); Hemoglobin 13.8 g/dl (12.0-16.0); Mean Corpuscular HGB Conc 33.6 g/dl (31.0-35.0); Mean Corpuscular Hemoglobin 32.1 pg (27.0-33.0); Mean Corpuscular Volume 95.6 fL (80.0-98.0); Mean Platelet Volume 9.9 fL (9.4-12.3); Platelet Count 184 X10*3/uL (160-400); Red Cell Distribution Width 15.1 % (11.0-16.0); White Blood Count 9.1 X10*3/uL (4.8-10.8)
[2022-04-24 21:13] LABS: Alanine Aminotransferase 17 U/L (0-31); Albumin Level 2.3 g/dL (3.5-5.0); Alkaline Phosphatase 148 U/L (39-117); Anion Gap 13 (12-20); Aspartate Amino Transferase 27 U/L (5-31); Bilirubin Direct 0.8 mg/dL (0.0-0.5); Bilirubin Total 1.3 mg/dL (0.0-1.0); Blood Urea Nitrogen 15 mg/dL (9-16); Calcium 7.6 mg/dL (8.4-10.2); Carbon Dioxide 25 mmol/L (22-29); Chloride 102 mmol/L (96-108); Creatinine Clr Calc Pharmacy 61.9; Estimated Glomerular Filt Rate 54; Glucose Random 159 mg/dL (60-115); Lipase 52 U/L (8-78); Magnesium 1.6 mg/dL (1.6-2.6); Potassium 3.7 mmol/L (3.3-5.1); Sodium 136 mmol/L (135-145); Total Protein 6.9 g/dL (6.5-8.0)
[2022-04-24] MEDS: ondansetron HCL 4 MG/2 ML VIAL IVPUSH (21:14)
[2022-04-24] MEDS: 0.9 % Sodium Chloride 1,000 ML 999 ML IV (21:14)
[2022-04-24] MEDS: Morphine Sulfate 2 MG/ML CARTRIDGE IVPUSH (21:14)
--- NOTE | 2022-04-24 21:16 | PC.NURSE ---
medicated pt per mar. Notified pt Nurse Marry.
--- NOTE | 2022-04-24 21:22 | PC.NURSE ---
Pt off floor to CT.
[2022-04-24] MEDS: iohexoL 350 MG/ML 100 ML INFUS..BTL IV (21:30)
[2022-04-24 22:00] VITALS: PULSE 95; RESP 20; O2SAT 94
[2022-04-24] MEDS: Lidocaine HCl 2% PF/Epi 1:200 20 ML VIAL INFILTRATI (22:13)
--- NOTE | 2022-04-24 22:14 | PC.NURSE ---
Pt returned from CT, MD Santana at bedside for paracentesis.
--- NOTE | 2022-04-24 23:48 | PM.IMHP ---
History of Present Illness Date of Service: 04/24/22 Chief Complaint: abd distension 56-year-old female with past medical history of liver cirrhosis, diabetes, hypertension, abdominal ascites who presents to the hospital with complaints of nausea, vomiting, and abdominal distension as well as pain. Patient reports that she has significant pain when she lays on her left side, she has reports that she has had significantly increased swelling in her abdomen, she reports no fever but has chills, has few episodes of nausea and vomiting nonbloody,, no diarrhea constipation, no urinary symptoms. Denies any chest pain, denies any shortness of breath no cough. No lower extremity edema. On arrival to the ED patient hemodynamically stable no significant abnormal vitals, Labs reviewed, unremarkable except for an elevated total bili of 1.3, direct bili of 0.8, Abdominal pelvic CT shows cirrhotic liver, findings of portal hypertension with ascites, varices and recanalized umbilical vein Paracentesis was attempted several times in the ED with no success, patient will be admitted for IR paracentesis Review of Systems Review of Systems: Yes all other systems are reviewed and are negative [facility] Medical History Cirrhosis Cirrhosis Diabetes (~01/31/21) Diabetes mellitus with hyperglycemia HTN (hypertension) UTI due to extended-spectrum beta lactamase (ESBL) producing Escherichia coli Family History Mother No problems noted. Father No problems noted. Social History Household Members: Children Housing: House Do you presently have visiting nurse or other home services: No Alcohol intake: never Patient Tobacco Use Status: Never used Tobacco e-Cigarette/Vaping Use: Never Used Second Hand Smoke Exposure: No Use of substances other than those prescribed or required for medical reasons: No Advance Directives: No Advance Directives Information Provided: No Patient : No service: No Current occupational status: unemployed and disabled Cognitive needs: No Hearing needs: No Vision needs: No Meds Allergies Allergy/AdvReac Type Severity Reaction Status Date / Time No Known Allergies Allergy Verified 07/19/21 14:20 [No Known Allergies*] Home Medications Medication Instructions Recorded Confirmed Last Taken Type carvedilol 3.125 mg tablet 1 tab PO BID 04/25/22 04/25/22 Unknown History furosemide 20 mg tablet 1 tab PO DAILY 04/25/22 04/25/22 Unknown History insulin aspart U-100 100 unit/mL sliding scale dose subcut BID 04/25/22 Unknown History (3 mL) subcutaneous pen (Novolog Flexpen U-100 Insulin aspart) insulin glargine 100 unit/mL (3 100 unit subcut DAILY 04/25/22 04/25/22 Unknown History mL) subcutaneous pen (Lantus Solostar U-100 Insulin) polyethylene glycol 3350 17 17 g PO DAILY 04/25/22 04/25/22 Unknown History gram/dose oral powder spironolactone 25 mg tablet 2 tab PO DAILY 04/25/22 04/25/22 Unknown History Physical Exam Vital Signs and Narrative: Vital Signs: Last Vital Signs Temp 98.2 F 04/24/22 19:57 Pulse 95 04/24/22 22:00 Resp 20 04/24/22 22:00 BP 140/82 H 04/24/22 19:57 Pulse Ox 94 04/24/22 22:00 O2 Del Method 04/24/22 22:00 BMI result Body Mass Index 30.2 Const: General: cooperative and no acute distress Orientation/consciousness: patient oriented x3 Eyes: General: appearance normal, both eyes and all related structures Resp: Effort & Inspection: normal respiratory effort Auscultation: clear to auscultation bilaterally Cardio: Rate: regular rate Rhythm: regular rhythm GI: Other: Abdomen is 3+ distended, diffuse tenderness on palpation, no rebound or guarding Skin: General skin exam: no rashes or lesions noted Neuro: General: patient oriented x3 Cognition (Neuro): normal cognition Extrem: General: Yes normal to inspection and Yes no pedal edema Results Labs CBC and Chem 7: 04/24/22 20:08 04/24/22 20:49 Labs: Laboratory Results - last 24 hr 04/24/22 04/24/22 04/24/22 20:08 20:49 20:49 MCV 95.6 MCH 32.1 MCHC 33.6 RDW 15.1 Plt Count 184 D MPV 9.9 Absolute Nucleated RBC 0.000 Nucleated RBC % (auto) 0.0 Anion Gap 13 Estim Creat Clear Calc 61.9 Estimated GFR 54 Random Glucose 159 H Calcium 7.6 L Magnesium 1.6 Total Bilirubin 1.3 H Direct Bilirubin 0.8 H AST 27 ALT 17 Alkaline Phosphatase 148 H Total Protein 6.9 Albumin 2.3 L Lipase 52 Imaging Radiologist's Impressions: Impressions Abdomen/Pelvis CT 04/24/22 21:38 IMPRESSION: Cirrhotic liver. Findings of portal hypertension with ascites, varices, and recanalized umbilical vein. There is a new appearance of a mixed fluid and fat attenuation structure along the posterior aspect of the midpole of the right kidney resulting in deformity of the kidney. This could be a subcapsular collection/resolving hematoma. Suggest follow-up imaging to evaluate for change/evolution. Right adnexal dermoid again noted. Fleischner guidelines were followed. Assessment and Plan (1) Nausea & vomiting: Qualifiers: Vomiting type: bilious vomiting Qualified Code(s): R11.14 - Bilious vomiting Status: Acute (2) Abdominal pain: Qualifiers: Abdominal location: generalized Qualified Code(s): R10.84 - Generalized abdominal pain Status: Acute (3) Abdominal distension: Status: Acute (4) Ascites: Qualifiers: Ascites type: due to alcoholic cirrhosis Qualified Code(s): K70.31 - Alcoholic cirrhosis of liver with ascites Status: Acute (5) Cirrhosis: Qualifiers: Hepatic cirrhosis type: alcoholic cirrhosis Ascites presence: with ascites Qualified Code(s): K70.31 - Alcoholic cirrhosis of liver with ascites Status: Acute Plan 56-year-old female with past medical history of liver cirrhosis, and ascites previously admitted for persistent uses presents to the hospital today with complaints of abdominal pain nausea vomiting # nausea and vomiting - likely secondary to abdominal distension/ascites - no evidence of acute infection - has no leukocytosis, afebrile - CT abdomen negative for acute findings - will treat with antiemetics and supportive care # abdominal pain - secondary to abdominal ascites - I have low suspicious for SBP as patient has no leukocytosis, afebrile, and pain is likely secondary to abdominal distension - will obtain% uses - although I initially started patient on ceftriaxone, at this time will discontinue it as my suspicion for SBP is low - follow paracentesis cultures, Gram stain # ascites/cirrhosis - due to alcoholic cirrhosis - paracentesis scheduled for tomorrow a.m. # history of hypertension - stable - continue antihypertensives # diabetes - low-dose sliding scale insulin - continue home insulin - diabetic diet DVT prophylaxis: Heparin subQ Quality Stroke Does the patient have a stroke diagnosis?: No VTE Prior VTE?: No VTE Risk Level:: Medical - moderate - high VTE Device Contraindication: Treatment Not Indicated VTE Drug Contraindication: N/A - Med Ordered
[2022-04-25 00:12] VITALS: BP 114/71; PULSE 97; RESP 18; TEMP 36.8; O2SAT 93
[2022-04-25 00:43] LABS: INTERNATIONAL NORM RATIO 1.5 (0.9-1.1); Prothrombin Time 17.4 SEC (10.0-13.1)
[2022-04-25 00:46] LABS: Partial Thromboplastin Time 31.9 SEC (26.0-36.4)
[2022-04-25 01:45] VITALS: RESP 19
[2022-04-25] MEDS: Morphine Sulfate 4 MG/ML CARTRIDGE IVPUSH ×4 (01:45→22:09)
[2022-04-25] MEDS: Heparin Sodium,Porcine 5,000 UNIT/ML VIAL 5000 UNIT SUBCUT ×3 (01:47→22:01)
[2022-04-25] MEDS: 0.9 % Sodium Chloride Flush 3 ML SYRINGE IVFLUSH ×2 (01:50→09:01)
[2022-04-25] MEDS: cefTRIAXone sodium 1 GM in 0.9 % Sodium Chloride 50 ML IV (02:15)
[2022-04-25 02:35] LABS: Lactic Acid 1.5 mmol/L (0.5-2.0)
[2022-04-25 04:10] LABS: COVID-19 Test Negative (Negative)
[2022-04-25 06:01] VITALS: RESP 16
--- NOTE | 2022-04-25 07:15 | PHA.MEDREC ---
Pharmacy Consult ? Medication Reconciliation Pharmacy has completed the medication reconciliation. Reviewed med rec done by nursing
[2022-04-25 07:17] LABS: Glucose, Whole Blood 125 mg/dL (60-115)
[2022-04-25 07:52] LABS: MANUAL DIFF FLAG NO
[2022-04-25 07:55] LABS: Basophils Absolute Auto 0.1 X10*3/uL (0.0-0.2); Basophils Percent Auto 0.4 % (0-2); Hematocrit 38.9 % (37.0-47.0); Hemoglobin 13.2 g/dl (12.0-16.0); Imm Gran Abs Auto 0.05 X10*3/uL (0.00-0.03); Imm Gran Pct Auto 0.4 % (0.0-0.4); Lymphocytes Absolute Auto 1.1 X10*3/uL (1.2-4.9); Lymphocytes Percent Auto 8.2 % (20-40); Mean Corpuscular HGB Conc 33.9 g/dl (31.0-35.0); Mean Corpuscular Volume 94.2 fL (80.0-98.0); Mean Platelet Volume 9.8 fL (9.4-12.3); Monocytes Absolute Auto 0.9 X10*3/uL (0.1-1.2); Monocytes Percent Auto 6.3 % (2-11); Neutrophils Absolute Auto 11.8 x10*3/uL (2.0-8.3); Neutrophils Percent Auto 84.7 % (45-73); Platelet Count 167 X10*3/uL (160-400); Red Blood Count 4.13 X10*6/uL (4.20-5.50); Red Cell Distribution Width 15.4 % (11.0-16.0); White Blood Count 13.9 X10*3/uL (4.8-10.8)
[2022-04-25 08:10] LABS: Anion Gap 13 (12-20); Blood Urea Nitrogen 15 mg/dL (9-16); Calcium 7.5 mg/dL (8.4-10.2); Carbon Dioxide 24 mmol/L (22-29); Chloride 104 mmol/L (96-108); Creatinine Clr Calc Pharmacy 65.6; Estimated Glomerular Filt Rate 58; Glucose Random 139 mg/dL (60-115); Potassium 3.8 mmol/L (3.3-5.1); Sodium 137 mmol/L (135-145)
[2022-04-25] MEDS: polyethylene glycoL 3350 17 GM POWD.PACK PO (08:59)
[2022-04-25] MEDS: carvediloL 3.125 MG TABLET PO ×2 (09:00→22:02)
[2022-04-25] MEDS: Spironolactone 25 MG TABLET 50 MG PO (09:00)
[2022-04-25] MEDS: Furosemide 20 MG TABLET PO (09:00)
--- NOTE | 2022-04-25 12:29 | MHC.CM.PN ---
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
--- NOTE | 2022-04-25 12:44 | HO.RADPN ---
RADIOLOGY Narrative Narrative: llq paracentesisperformed using 5 fr catheter . L clear yellow fluid removed. Specimen sent .
[2022-04-25] MEDS: Lidocaine HCl 1 % MPF 5 ML VIAL 4 ML SUBCUT (12:54)
[2022-04-25 13:15] LABS: MN% 14.6 %; PMN% 85.4 %
[2022-04-25 13:16] LABS: RBC Peritoneal Fluid < 0.002 X10*6/uL
[2022-04-25 14:08] LABS: Glucose, Whole Blood 221 mg/dL (60-115)
[2022-04-25] MEDS: Insulin Glargine,Hum.rec.anlog 100 UNIT/ML 10 ML VIAL SUBCUT (14:12)
[2022-04-25 14:14] LABS: BF Shift QC OK YES; Basophils Peritoneal Fl 0 %; Eosinophils Peritoneal Fl 0 %; Lymphocyte Peritoneal Fl 0 %; Man Diluent Bkgrd OK YES; Monocytes Peritoneal Fl 1 %; Neutrophils Peritoneal Fluid 98 %; Other Peritioneal Fl 1 %
--- NOTE | 2022-04-25 14:25 | HO.PM.IMPN ---
Subjective Subjective Date of Service: 04/25/22 Interval History: notes improvement after paracentesis. No acute issues Review of Systems denies chest pain Denies shortness of breath Denies nausea vomiting diarrhea Admits to abdominal pain Physical Exam Vital Signs: Vital Signs: Last Vital Signs Temp 98.2 F 04/25/22 00:12 Pulse 97 04/25/22 00:12 Resp 16 04/25/22 06:01 BP 114/71 04/25/22 00:12 Pulse Ox 93 04/25/22 00:12 O2 Del Method 04/25/22 00:12 BMI result Body Mass Index 30.2 Const: Other: resting comfortably in bed Resp: Other: clear to auscultation bilaterally no rales rhonchi or wheezes Cardio: Other: no S4; positive S1-S2; no S3 murmurs of gallops GI: Other: tense ascites prior to tap; softer with positive bowel Extrem: Other: no edema bilaterally Objective Data Active Medications Acetaminophen (Acetaminophen 325 Mg Tablet) 650 mg PO Q6H PRN PRN Reason: Pain, Mild (Pain Scale 1-3) Carvedilol (Carvedilol 3.125 Mg Tablet) 3.125 mg PO BID [facility]; Protocol Last Admin: 04/25/22 09:00 Dose: 3.125 mg Documented By: AUDELIA Docusate Sodium (Docusate Sodium 100 Mg Capsule) 100 mg PO DAILY PRN PRN Reason: Constipation Furosemide (Furosemide 20 Mg Tablet) 20 mg PO DAILY [facility]; Protocol Last Admin: 04/25/22 09:00 Dose: 20 mg Documented By: AUDELIA Heparin Sodium (Porcine) (Heparin Sodium,Porcine 5,000 Unit/Ml Vial) 5,000 unit SUBCUT BID [facility] Last Admin: 04/25/22 08:59 Dose: 5,000 unit Documented By: AUDELIA Insulin Glargine (Insulin Glargine,Hum.Rec.Anlog 100 Unit/Ml 10 Ml Vial) 100 unit SUBCUT DAILY [facility] Last Admin: 04/25/22 14:12 Dose: 100 unit Documented By: AUDELIA Morphine Sulfate (Morphine Sulfate 4 Mg/Ml Cartridge) 4 mg IVPUSH Q4H PRN; Protocol PRN Reason: Pain, Moderate (Pain Scale 4-6 Last Admin: 04/25/22 06:01 Dose: 4 mg Documented By: NED Ondansetron HCl (Ondansetron Hcl 4 Mg/2 Ml Vial) 4 mg IVPUSH Q8H PRN PRN Reason: Nausea and Vomiting Polyethylene Glycol (Polyethylene Glycol 3350 17 Gm Powd.Pack) 17 gm PO DAILY [facility] Last Admin: 04/25/22 08:59 Dose: 17 gm Documented By: AUDELIA Sodium Chloride (0.9 % Sodium Chloride Flush 3 Ml Syringe) 3 ml IVFLUSH QSHIFT [facility] Last Admin: 04/25/22 09:01 Dose: 3 ml Documented By: AUDELIA Spironolactone (Spironolactone 25 Mg Tablet) 50 mg PO DAILY [facility]; Protocol Last Admin: 04/25/22 09:00 Dose: 50 mg Documented By: AUDELIA Labs CBC & Chem 7: 04/25/22 07:48 04/25/22 07:48 Labs: Laboratory Results - last 24 hr 04/24/22 04/24/22 04/24/22 20:08 20:49 20:49 MCV 95.6 MCH 32.1 MCHC 33.6 RDW 15.1 Plt Count 184 D MPV 9.9 Immature Gran % (Auto) Neut % (Auto) Lymph % (Auto) [place] % (Auto) Eos % (Auto) Baso % (Auto) Lymph # (Auto) [place] # (Auto) Eos # (Auto) Baso # (Auto) Abs Immat Gran (auto) Absolute Neuts (auto) Absolute Nucleated RBC 0.000 Nucleated RBC % (auto) 0.0 PT INR APTT Anion Gap 13 Estim Creat Clear Calc 61.9 Estimated GFR 54 POC Glucose Random Glucose 159 H Lactic Acid Calcium 7.6 L Magnesium 1.6 Total Bilirubin 1.3 H Direct Bilirubin 0.8 H AST 27 ALT 17 Alkaline Phosphatase 148 H Total Protein 6.9 Albumin 2.3 L Lipase 52 Peritoneal WBC Peritoneal RBC Periton Neutrophils Periton Lymphocytes Peritoneal Monocytes Peritoneal Eosinophils Peritoneal Basophils Peritoneal Other Cells COVID-19 (DAVION) COVID-19 Clin Com 04/25/22 04/25/22 04/25/22 00:31 02:13 03:45 MCV MCH MCHC RDW Plt Count MPV Immature Gran % (Auto) Neut % (Auto) Lymph % (Auto) [place] % (Auto) Eos % (Auto) Baso % (Auto) Lymph # (Auto) [place] # (Auto) Eos # (Auto) Baso # (Auto) Abs Immat Gran (auto) Absolute Neuts (auto) Absolute Nucleated RBC Nucleated RBC % (auto) PT 17.4 H INR 1.5 H APTT 31.9 Anion Gap Estim Creat Clear Calc Estimated GFR POC Glucose Random Glucose Lactic Acid 1.5 Calcium Magnesium Total Bilirubin Direct Bilirubin AST ALT Alkaline Phosphatase Total Protein Albumin Lipase Peritoneal WBC Peritoneal RBC Periton Neutrophils Periton Lymphocytes Peritoneal Monocytes Peritoneal Eosinophils Peritoneal Basophils Peritoneal Other Cells COVID-19 (DAVION) Negative COVID-19 Clin Com See Note 04/25/22 04/25/22 04/25/22 07:10 07:48 07:48 MCV 94.2 MCH 32.0 MCHC 33.9 RDW 15.4 Plt Count 167 MPV 9.8 Immature Gran % (Auto) 0.4 Neut % (Auto) 84.7 H Lymph % (Auto) 8.2 L [place] % (Auto) 6.3 Eos % (Auto) 0.0 Baso % (Auto) 0.4 Lymph # (Auto) 1.1 L [place] # (Auto) 0.9 Eos # (Auto) 0.0 Baso # (Auto) 0.1 Abs Immat Gran (auto) 0.05 H Absolute Neuts (auto) 11.8 H Absolute Nucleated RBC 0.000 Nucleated RBC % (auto) 0.0 PT INR APTT Anion Gap 13 Estim Creat Clear Calc 65.6 Estimated GFR 58 POC Glucose 125 H Random Glucose 139 H Lactic Acid Calcium 7.5 L Magnesium Total Bilirubin Direct Bilirubin AST ALT Alkaline Phosphatase Total Protein Albumin Lipase Peritoneal WBC Peritoneal RBC Periton Neutrophils Periton Lymphocytes Peritoneal Monocytes Peritoneal Eosinophils Peritoneal Basophils Peritoneal Other Cells COVID-19 (ADVION) COVID-19 Clin Com 04/25/22 04/25/22 12:20 14:04 MCV MCH MCHC RDW Plt Count MPV Immature Gran % (Auto) Neut % (Auto) Lymph % (Auto) [place] % (Auto) Eos % (Auto) Baso % (Auto) Lymph # (Auto) [place] # (Auto) Eos # (Auto) Baso # (Auto) Abs Immat Gran (auto) Absolute Neuts (auto) Absolute Nucleated RBC Nucleated RBC % (auto) PT INR APTT Anion Gap Estim Creat Clear Calc Estimated GFR POC Glucose 221 H Random Glucose Lactic Acid Calcium Magnesium Total Bilirubin Direct Bilirubin AST ALT Alkaline Phosphatase Total Protein Albumin Lipase Peritoneal WBC 11.438 Peritoneal RBC < 0.002 Periton Neutrophils 98 Periton Lymphocytes 0 Peritoneal Monocytes 1 Peritoneal Eosinophils 0 Peritoneal Basophils 0 Peritoneal Other Cells 1 COVID-19 (DAVION) COVID-19 Clin Com Microbiology Microbiology Results: Microbiology 04/25/22 12:20 Gram Stain - Final Abdominal Fluid Assessment and Plan (1) Ascites: Status: Acute (2) Cirrhosis: Status: Acute (3) Diabetes type 2, controlled: Status: Acute Plan 56-year-old female with past medical history of liver cirrhosis, and ascites previously admitted for persistent uses presents to the hospital today with complaints of abdominal pain nausea vomiting 1.Abdominal pain - secondary to abdominal ascites - improved after tap 2.Ascites/cirrhosis - due to alcoholic cirrhosis - paracentesis with good response 3.Hypertension -acceptable control on current therapies - adjust as indicated 4.Diabetesn II - low-dose sliding scale insulin - continue home insulin - diabetic diet DVT prophylaxis: Heparin subQ will require ongoing hospitalization the the to treat ascites; IV volume repletion secondary to nausea and vomiting Quality Stroke Does the patient have a stroke diagnosis?: No VTE Prior VTE?: No VTE Risk Level:: Medical - moderate - high VTE Device Contraindication: Treatment Not Indicated VTE Drug Contraindication: N/A - Med Ordered
[2022-04-25 14:43] VITALS: BP 110/62; PULSE 84; RESP 16; TEMP 36.4; O2SAT 93
[2022-04-25] MEDS: ondansetron HCL 4 MG/2 ML VIAL IVPUSH (16:29)
--- NOTE | 2022-04-25 23:27 | PC.NURSE ---
Patient unsteady on feet was walking to bathroom almost fell. Will probably need rehab.
[2022-04-26] VITALS (9 sets, daily range): BP systolic 95–137; BP diastolic 56–76; PULSE 80–100; RESP 14–18; TEMP 36.4–36.9; O2SAT 92–98
[2022-04-26] MEDS: 0.9 % Sodium Chloride Flush 3 ML SYRINGE IVFLUSH ×3 (02:17→17:40)
--- NOTE | 2022-04-26 02:53 | PC.NURSE ---
Pt vitals currently set for q30 minutes which was an order placed by the APC x2 hour s/p thoracentesis. Pt's vitals should be completed q4 hours however there is no q4 hour option in the worklist. RN charted against the vital prompts between the 4 hour periods.
[2022-04-26 06:56] LABS: MANUAL DIFF FLAG NO
[2022-04-26 07:11] LABS: Basophils Percent Auto 0.3 % (0-2); Hemoglobin 12.2 g/dl (12.0-16.0); Imm Gran Abs Auto 0.05 X10*3/uL (0.00-0.03); Imm Gran Pct Auto 0.5 % (0.0-0.4); Lymphocytes Absolute Auto 0.7 X10*3/uL (1.2-4.9); Lymphocytes Percent Auto 7.6 % (20-40); Mean Corpuscular HGB Conc 33.9 g/dl (31.0-35.0); Mean Corpuscular Hemoglobin 32.4 pg (27.0-33.0); Mean Corpuscular Volume 95.7 fL (80.0-98.0); Mean Platelet Volume 9.8 fL (9.4-12.3); Monocytes Absolute Auto 0.7 X10*3/uL (0.1-1.2); Monocytes Percent Auto 7.6 % (2-11); Platelet Count 152 X10*3/uL (160-400); Red Blood Count 3.76 X10*6/uL (4.20-5.50); Red Cell Distribution Width 15.1 % (11.0-16.0); White Blood Count 9.5 X10*3/uL (4.8-10.8)
[2022-04-26 07:20] LABS: Alanine Aminotransferase 13 U/L (0-31); Alkaline Phosphatase 123 U/L (39-117); Anion Gap 13 (12-20); Aspartate Amino Transferase 19 U/L (5-31); Blood Urea Nitrogen 17 mg/dL (9-16); Calcium 7.6 mg/dL (8.4-10.2); Carbon Dioxide 25 mmol/L (22-29); Chloride 102 mmol/L (96-108); Estimated Glomerular Filt Rate 50; Glucose Fasting 159 mg/dL (60-99); Potassium 3.4 mmol/L (3.3-5.1); Sodium 137 mmol/L (135-145); Total Protein 6.1 g/dL (6.5-8.0)
[2022-04-26] MEDS: Heparin Sodium,Porcine 5,000 UNIT/ML VIAL 5000 UNIT SUBCUT ×2 (09:42→19:59)
[2022-04-26] MEDS: Insulin Glargine,Hum.rec.anlog 100 UNIT/ML 10 ML VIAL SUBCUT (09:42)
[2022-04-26] MEDS: Spironolactone 25 MG TABLET 50 MG PO (09:43)
[2022-04-26] MEDS: carvediloL 3.125 MG TABLET PO ×2 (09:43→19:58)
[2022-04-26] MEDS: Furosemide 20 MG TABLET PO (09:43)
[2022-04-26] MEDS: polyethylene glycoL 3350 17 GM POWD.PACK PO (11:00)
--- NOTE | 2022-04-26 11:32 | HO.PM.IMPN ---
Subjective Subjective Date of Service: 04/26/22 Interval History: Still complaining of abdominal fullness and pressure despite removal of 3 L via paracentesis yesterday Review of Systems denies chest pain Denies shortness of breath Denies nausea vomiting diarrhea Admits to abdominal pain Physical Exam Vital Signs: Vital Signs: Last Vital Signs Temp 98.0 F 04/26/22 11:19 Pulse 81 04/26/22 11:19 Resp 17 04/26/22 11:19 BP 97/63 04/26/22 11:19 Pulse Ox 98 04/26/22 11:19 O2 Del Method 04/26/22 11:19 BMI result Body Mass Index 30.2 Const: Other: resting comfortably in bed Resp: Other: clear to auscultation bilaterally no rales rhonchi or wheezes Cardio: Other: no S4; positive S1-S2; no S3 murmurs of gallops GI: Other: tense ascites prior to tap; softer with positive bowel Extrem: Other: no edema bilaterally Objective Data Active Medications Acetaminophen (Acetaminophen 325 Mg Tablet) 650 mg PO Q6H PRN PRN Reason: Pain, Mild (Pain Scale 1-3) Carvedilol (Carvedilol 3.125 Mg Tablet) 3.125 mg PO BID [facility]; Protocol Last Admin: 04/26/22 09:43 Dose: 3.125 mg Documented By: WILD Docusate Sodium (Docusate Sodium 100 Mg Capsule) 100 mg PO DAILY PRN PRN Reason: Constipation Furosemide (Furosemide 20 Mg Tablet) 20 mg PO DAILY [facility]; Protocol Last Admin: 04/26/22 09:43 Dose: 20 mg Documented By: WILD Heparin Sodium (Porcine) (Heparin Sodium,Porcine 5,000 Unit/Ml Vial) 5,000 unit SUBCUT BID [facility] Last Admin: 04/26/22 09:42 Dose: 5,000 unit Documented By: WILD Insulin Glargine (Insulin Glargine,Hum.Rec.Anlog 100 Unit/Ml 10 Ml Vial) 100 unit SUBCUT DAILY [facility] Last Admin: 04/26/22 09:42 Dose: 100 unit Documented By: WILD Morphine Sulfate (Morphine Sulfate 4 Mg/Ml Cartridge) 4 mg IVPUSH Q4H PRN; Protocol PRN Reason: Pain, Moderate (Pain Scale 4-6 Last Admin: 04/25/22 22:09 Dose: 4 mg Documented By: ERIKA Ondansetron HCl (Ondansetron Hcl 4 Mg/2 Ml Vial) 4 mg IVPUSH Q8H PRN PRN Reason: Nausea and Vomiting Last Admin: 04/25/22 16:29 Dose: 4 mg Documented By: ERIKA Oxycodone HCl (Oxycodone Hcl Immed Release 5 Mg Tablet) 10 mg PO Q4H PRN PRN Reason: Pain, Severe (Pain Scale 7-10) Polyethylene Glycol (Polyethylene Glycol 3350 17 Gm Powd.Pack) 17 gm PO DAILY [facility] Last Admin: 04/26/22 11:00 Dose: 17 gm Documented By: WILD Sodium Chloride (0.9 % Sodium Chloride Flush 3 Ml Syringe) [facility] Last Admin: 04/26/22 09:43 Dose: 3 ml Documented By: WILD Spironolactone (Spironolactone 25 Mg Tablet) 50 mg PO DAILY [facility]; Protocol Last Admin: 04/26/22 09:43 Dose: 50 mg Documented By: WILD Labs CBC & Chem 7: 04/26/22 06:53 04/26/22 06:54 Labs: Laboratory Results - last 24 hr 04/25/22 04/25/22 04/26/22 12:20 14:04 06:53 MCV 95.7 MCH 32.4 MCHC 33.9 RDW 15.1 Plt Count 152 L MPV 9.8 Immature Gran % (Auto) 0.5 H Neut % (Auto) 84.0 H Lymph % (Auto) 7.6 L [place] % (Auto) 7.6 Eos % (Auto) 0.0 Baso % (Auto) 0.3 Lymph # (Auto) 0.7 L [place] # (Auto) 0.7 Eos # (Auto) 0.0 Baso # (Auto) 0.0 Abs Immat Gran (auto) 0.05 H Absolute Neuts (auto) 8.0 Absolute Nucleated RBC 0.000 Nucleated RBC % (auto) 0.0 Anion Gap Estim Creat Clear Calc Estimated GFR POC Glucose 221 H Fasting Glucose Calcium Total Bilirubin AST ALT Alkaline Phosphatase Total Protein Albumin Peritoneal WBC 11.438 Peritoneal RBC < 0.002 Periton Neutrophils 98 Periton Lymphocytes 0 Peritoneal Monocytes 1 Peritoneal Eosinophils 0 Peritoneal Basophils 0 Peritoneal Other Cells 1 04/26/22 06:54 MCV MCH MCHC RDW Plt Count MPV Immature Gran % (Auto) Neut % (Auto) Lymph % (Auto) [place] % (Auto) Eos % (Auto) Baso % (Auto) Lymph # (Auto) [place] # (Auto) Eos # (Auto) Baso # (Auto) Abs Immat Gran (auto) Absolute Neuts (auto) Absolute Nucleated RBC Nucleated RBC % (auto) Anion Gap 13 Estim Creat Clear Calc 58.0 Estimated GFR 50 POC Glucose Fasting Glucose 159 H Calcium 7.6 L Total Bilirubin 1.0 AST 19 ALT 13 Alkaline Phosphatase 123 H Total Protein 6.1 L Albumin 2.0 L Peritoneal WBC Peritoneal RBC Periton Neutrophils Periton Lymphocytes Peritoneal Monocytes Peritoneal Eosinophils Peritoneal Basophils Peritoneal Other Cells Microbiology Microbiology Results: Microbiology 04/25/22 12:20 Gram Stain - Final Abdominal Fluid Routine Culture - Preliminary No growth to date. Anaerobic Culture - Preliminary No growth to date. 04/25/22 02:13 Blood Culture - Preliminary Blood - Venous No growth after 24 hours. Assessment and Plan (1) Abdominal pain: Status: Acute (2) Ascites: Status: Acute (3) HTN (hypertension): Status: Acute (4) Diabetes type 2, controlled: Status: Acute Plan 56-year-old female with past medical history of liver cirrhosis, and ascites previously admitted for persistent uses presents to the hospital today with complaints of abdominal pain nausea vomiting; vomiting improved however a follow-up pain persistent 1.Abdominal pain - secondary to abdominal ascites - 3L removed with little relief 2.Ascites/cirrhosis - due to alcoholic cirrhosis - Consult GI 3.Hypertension -acceptable control on current therapies - adjust as indicated 4.Diabetesn II - low-dose sliding scale insulin - continue home insulin - diabetic diet DVT prophylaxis: Heparin subQ will require ongoing hospitalization the the to treat ascites; IV volume repletion secondary to nausea and vomiting Quality Stroke Does the patient have a stroke diagnosis?: No VTE Prior VTE?: No VTE Risk Level:: Medical - moderate - high VTE Device Contraindication: Treatment Not Indicated VTE Drug Contraindication: N/A - Med Ordered
[2022-04-26] MEDS: oxyCODONE HCl Immed Release 5 MG TABLET 10 MG PO ×2 (11:55→19:59)
--- NOTE | 2022-04-26 12:47 | PC.NURSE ---
Pt transferred from ED Overflow to [facility] 3 rm 346, report called to receiving RN, pt belongings sent up w/pt, pt aware of plan, no further questions at this time.
[2022-04-26 13:37] LABS: Glucose, Whole Blood 85 mg/dL (60-115)
--- NOTE | 2022-04-26 13:51 | PM.EVENT ---
Event Note Date of Service: 04/26/22 Event Note: GI Consult-Full note dictated Imp: 56 yo female with cirrhosis and ascites presenting with increasing abdominal girth and abdominal pain. She underwent a paracentesis and the cell count revealed > 11, 000 WBC with 98%PMN's. The gram stain shows 3+PMN's but no organisms. There has been no sign of GI bleeding, encephalopathy, nor liver decompensation otherwise. Rec: IV antibiotic such as Ceftriaxone or Levaquin, consider ID consult, and check final cultures. Diuretics but follow renal function closely. Repeat U/S with doppler studies to assess for PV thrombosis. Check AFP level. I did discuss options for eventual liver transplant evaluation but she states that she is not interested in pursuing that. D/W patient in detail and she is comfortable with this plan. Thanks
[2022-04-26] MEDS: Piperacillin Sodium/Tazobactam 3.375 GM in 0.9 % Sodium Chloride 50 ML IV ×2 (14:07→20:00)
[2022-04-26] MEDS: Omeprazole 20 MG CAPSULE.DR PO (14:34)
[2022-04-26 15:35] LABS: Glucose, Whole Blood 48 mg/dL (60-115)
[2022-04-26] MEDS: Dextrose 50 % 25 GM/50 ML SYRINGE IVPUSH (15:45)
[2022-04-26 16:23] LABS: Glucose, Whole Blood 159 mg/dL (60-115)
[2022-04-26] MEDS: Insulin Lispro 100 UNIT/ML 3 ML VIAL SUBCUT (17:39)
[2022-04-26 19:16] LABS: Glucose, Whole Blood 149 mg/dL (60-115)
[2022-04-26] MEDS: Morphine Sulfate 4 MG/ML CARTRIDGE IVPUSH (21:12)
[2022-04-27] VITALS (7 sets, daily range): BP systolic 104–123; BP diastolic 56–62; PULSE 85–95; RESP 17–20; TEMP 36.2–37; O2SAT 92–94
--- NOTE | 2022-04-27 01:58 | CONS_ITS ---
04/26/2022 DATE OF SERVICE: 04/26/2022 REASON FOR CONSULTATION: Cirrhosis, ascites, and abdominal pain. HISTORY OF PRESENT ILLNESS: This has been obtained from the patient and the medical record. The patient is a 56-year-old female with known cirrhosis of unclear etiology as she denies any significant history of alcohol use presently nor in the past. She did have some workup several years ago with Dr. Cabral that was apparently negative for any other etiologies including viral serologies, iron studies, autoimmune studies including mitochondrial antibody, smooth muscle antibody, and LINDA. The patient does report that her mother has cirrhosis as well, although the patient reports that her mother is still alive in her 80s. The patient also had a normal ceruloplasmin level. She reports that things had been stable at home up until the past 4 days when she began having increasing abdominal girth, abdominal pain, and feeling poorly. She apparently was on furosemide and spironolactone at home. Due to worsening symptoms, she came to the ER and was admitted. While here in the hospital, thus far, she has had no signs of GI bleeding. She has had a couple of episodes of vomiting, but no hematemesis nor coffee-grounds emesis. She denies any melena nor hematochezia. Her appetite has been poor. Her vital signs appear to be stable and she has been afebrile. She did have a paracentesis yesterday with removal of about 3 L of fluid, which is described as yellow and clear. However, abdominal distention and discomfort still persists. MEDICATIONS: In the hospital include acetaminophen p.r.n., carvedilol, Colace p.r.n., furosemide 20 mg daily, subcu heparin, Atarax p.r.n., insulin, morphine p.r.n., Zofran p.r.n., oxycodone p.r.n., MiraLAX, and aldactone 50 mg daily. PAST MEDICAL HISTORY: Diabetes mellitus. Cirrhosis and ascites. She denies history of MA, stroke, lung disease or kidney disease. PAST SURGICAL HISTORY: Includes surgical debridement of a necrotic ulcer in the right inner thigh and perineal area by Dr. Ash. She denies any other surgeries. SOCIAL HISTORY: She lives with her son. She does not smoke and denies alcohol use presently nor in the past of any significance. FAMILY HISTORY: Mother has cirrhosis, but is alive in her 80s. REVIEW OF SYSTEMS: CONSTITUTIONAL: She has been feeling poorly at home with diminished appetite and weakness. CARDIAC: No chest pain. PULMONARY: No cough. No hemoptysis. GI: As above. PHYSICAL EXAMINATION: GENERAL: The patient is a pleasant, alert, cooperative female. She appears oriented and answers questions appropriately. SKIN: Warm and dry. Anicteric sclerae. CHEST: Clear. CARDIAC: Normal S1 and S2. ABDOMEN: Soft, but distended with ascites. There is mild diffuse tenderness. There is no palpable mass. EXTREMITIES: Without edema. There is no asterixis. LABORATORY DATA: White blood cell count 9.5, hemoglobin 12.2, and platelets 152,000, differential shows 84% neutrophils. PT 17.4 with INR 1.5. Normal electrolytes. BUN 17, creatinine 1.1, total bilirubin is 1.0, AST 19, ALT 13, alkaline phosphatase 123, and albumin is 2.0. Her ascites fluid from yesterday's paracentesis revealed greater than 11,000 WBCs with 90% neutrophils. The Gram stain of that shows 3+ polys but no organisms. Cultures are negative thus far. Her CT scan of the abdomen and pelvis describes her cirrhosis, but without any sign of liver mass nor biliary disease. Ascites is noted, as are gallstones. There was borderline splenomegaly. IMPRESSION: Given the patient's clinical history and workup, this seems consistent with spontaneous bacterial peritonitis, which would certainly be contributing to abdominal pain and worsening ascites. At this point, I would concur with the use of intravenous antibiotics and would recommend Infectious Disease consult as well. I have ordered a repeat abdominal ultrasound with Doppler studies to assess for any component of portal vein thrombosis in regard to her increasing abdominal girth and abdominal pain. I would continue her low-dose diuretics, but follow her renal function closely. If things are stable, her diuretics can be increased to treat her ascites as long as the renal function and electrolytes remain stable. I would watch for other signs of liver decompensation such as GI bleeding or encephalopathy. I would check an alpha fetoprotein level as well. Of note, given her young age, I did ask her if she has been referred to a liver transplant center. She has not been referred to a liver transplant center, but states specifically and rather adamantly that she is not interested in that. Given her acute illness and underlying condition. I would also keep her on an oral PPI. I have ordered followup laboratories for tomorrow including a PT with INR, liver profile, and chemistries. This has all been discussed with her in detail and she is comfortable with this plan. Thank you for the consultation. MD TYSON Mcgovern/LYNDSEY / [phone] LIZBETH
[2022-04-27] MEDS: Piperacillin Sodium/Tazobactam 3.375 GM in 0.9 % Sodium Chloride 50 ML IV ×4 (02:48→19:38)
[2022-04-27] MEDS: 0.9 % Sodium Chloride Flush 3 ML SYRINGE IVFLUSH ×4 (02:52→19:40)
[2022-04-27] MEDS: Omeprazole 20 MG CAPSULE.DR PO (05:50)
--- NOTE | 2022-04-27 05:56 | MHC.PIE ---
P. Lethargic. I. Pt noted to be very lethargic compared to baseline. Able to follow commands. Hand grasps weak but equal. POC checked, 31. Able to take 360mL of orange juice and cracker with peanut butter. Recheck POC was 39. Pt remains lethargic and less arousable. Stat D50 given. Recheck POC 209. Pt remains lethargic. BP 94/68, HR 83, rectal temp 97.9. Dr. Alonzo updated and MD up to see pt. Stat ammonia and head CT ordered by MD. Pt remains lethargic. E. Next shift updated. Pt down to CT scan. Next shift received critical glucose of 21 at 0720 that was drawn at 0515.
[2022-04-27] MEDS: Dextrose 50 % 25 GM/50 ML SYRINGE IVPUSH (06:20)
--- NOTE | 2022-04-27 06:35 | PM.EVENT ---
Event Note Date of Service: 04/27/22 Event Note: Patient was morning lethargic, found to have a glucose of 31, given D50 with improvement of her glucose per patient remains significantly lethargic, has her eyes open, but is not following commands properly, cannot evaluate her neurological symptoms. Will obtain ammonia level, and obtain head CT
[2022-04-27 06:36] LABS: Hemoglobin 11.8 g/dl (12.0-16.0); Mean Corpuscular HGB Conc 33.7 g/dl (31.0-35.0); Mean Corpuscular Hemoglobin 31.9 pg (27.0-33.0); Mean Corpuscular Volume 94.6 fL (80.0-98.0); Mean Platelet Volume 10.2 fL (9.4-12.3); Platelet Count 160 X10*3/uL (160-400); Red Cell Distribution Width 15.3 % (11.0-16.0)
[2022-04-27 06:46] LABS: Glucose, Whole Blood 39 mg/dL (60-115)
[2022-04-27 06:46] LABS: Glucose, Whole Blood 31 mg/dL (60-115)
[2022-04-27 06:46] LABS: Glucose, Whole Blood 196 mg/dL (60-115)
[2022-04-27 06:46] LABS: Glucose, Whole Blood 232 mg/dL (60-115)
[2022-04-27 06:55] LABS: INTERNATIONAL NORM RATIO 1.5 (0.9-1.1); Prothrombin Time 17.8 SEC (10.0-13.1)
[2022-04-27 07:08] LABS: Ammonia 59 umol/L (13-55)
[2022-04-27 07:15] LABS: Alanine Aminotransferase 14 U/L (0-31); Albumin Level 1.9 g/dL (3.5-5.0); Alkaline Phosphatase 122 U/L (39-117); Anion Gap 15 (12-20); Aspartate Amino Transferase 30 U/L (5-31); Bilirubin Direct 0.8 mg/dL (0.0-0.5); Bilirubin Total 1.6 mg/dL (0.0-1.0); Blood Urea Nitrogen 18 mg/dL (9-16); Calcium 7.4 mg/dL (8.4-10.2); Carbon Dioxide 23 mmol/L (22-29); Chloride 101 mmol/L (96-108); Creatinine Clr Calc Pharmacy 53.7; Estimated Glomerular Filt Rate 46; Glucose Fasting 21 mg/dL (60-99); Potassium 3.5 mmol/L (3.3-5.1); Sodium 135 mmol/L (135-145); Total Protein 6.1 g/dL (6.5-8.0)
[2022-04-27 07:30] LABS: Glucose, Whole Blood 175 mg/dL (60-115)
[2022-04-27 09:04] LABS: Band Neutrophils Percent 37 % (3-5); Metamyelocytes Absolute 0.3 X10*3/uL; Metamyelocytes Percent 2 %; Monocytes Absolute Manual 0.2 X10*3/uL (0.1-1.2); Monocytes Percent Manual 1 % (2-11); Neutrophils Absolute Manual 15.5 X10*3/uL (2.0-8.3); Neutrophils Percent Manual 60 % (45-73)
[2022-04-27 09:05] LABS: RBC Morphology NOTED
[2022-04-27 09:06] LABS: Acanthocytes 1+ (0-2) /OIF; Polychromasia 1+ (0-2) /OIF
[2022-04-27 09:07] LABS: Platelet Estimate NORMAL (NORMAL); Platelet Morphology Comment NORMAL
--- NOTE | 2022-04-27 10:02 | P.CDIC_ITS ---
CDI Concurrent Query Documentation Clarification: PHYSICIAN'S DOCUMENTATION REQUEST Date of Query: 04/27/22 1003 Patient Name: Alison Peck Admit Date: 04/25/22 Dear Doctor, A review of the medical record indicates additional documentation may be needed. Please review below and update the documentation accordingly. Clinical Indicators: Is there a diagnosis that correlates with these lab findings below: Risk Factors/Clinical Indicators/Treatments LABS: POC 04/26 - 48 POC 04/27 - 31 Medications Administered: -Dextrose 50%: 04/26 -Dextrose 50%: 04/27 Based on the above, could you clarify in the Progress Notes the appropriate diagnosis, if significant, that supports the above abnormalities and additional evaluation, monitoring, and/or treatment rendered: * Hypoglycemia * Other (please specify) * Unable to determine Use of terms such as suspected, likely, concern for, or probable (associated with a specific diagnosis that is being evaluated, monitored, or treated as if it exists) are acceptable and can be coded in the inpatient setting, when documented at the time of discharge. Thank you, Eusebia House MS, RN, CCRN Extension: [phone] Please use your independent medical judgment in providing your response. THIS QUERY IS PART OF THE PERMANENT MEDICAL RECORD Provider Response: Other Other Diagnosis: Hypoglycemia
[2022-04-27 10:27] LABS: Glucose, Whole Blood 140 mg/dL (60-115)
[2022-04-27 10:55] LABS: Ammonia 50 umol/L (13-55)
[2022-04-27] MEDS: Heparin Sodium,Porcine 5,000 UNIT/ML VIAL 5000 UNIT SUBCUT ×2 (10:55→19:39)
--- NOTE | 2022-04-27 12:53 | P.PNIM_ITS ---
Subjective Subjective Date of Service: 04/27/22 Interval History: Overnight episodes noted. Sugars now stabilized. Patient had episode of staring; now eating lunch in interacting Review of Systems denies chest pain Denies shortness of breath Denies nausea vomiting diarrhea Admits to abdominal pain Physical Exam Vital Signs: Vital Signs: Last Vital Signs Temp 97.5 F 04/27/22 10:53 Pulse 89 04/27/22 10:53 Resp 20 04/27/22 10:53 BP 112/56 L 04/27/22 10:53 Pulse Ox 93 04/27/22 10:53 O2 Del Method 04/27/22 10:53 BMI result Body Mass Index 30.2 Const: Other: resting comfortably in bed Resp: Other: clear to auscultation bilaterally no rales rhonchi or wheezes Cardio: Other: no S4; positive S1-S2; no S3 murmurs of gallops GI: Other: tense ascites prior to tap; softer with positive bowel Extrem: Other: no edema bilaterally Objective Data Active Medications Acetaminophen (Acetaminophen 325 Mg Tablet) 650 mg PO Q6H PRN PRN Reason: Pain, Mild (Pain Scale 1-3) Carvedilol (Carvedilol 3.125 Mg Tablet) 3.125 mg PO BID [facility]; Protocol Last Admin: 04/27/22 10:52 Dose: Not Given Documented By: BENJI Non-Admin Reason: Patient Condition Contraindication Dextrose (Dextrose 50 % 25 Gm/50 Ml Syringe) 25 gm IVPUSH Q15M PRN; Protocol PRN Reason: per Hypoglycemia Standing Ord. Docusate Sodium (Docusate Sodium 100 Mg Capsule) 100 mg PO DAILY PRN PRN Reason: Constipation Furosemide (Furosemide 20 Mg Tablet) 20 mg PO DAILY [facility]; Protocol Last Admin: 04/27/22 10:53 Dose: Not Given Documented By: BENJI Non-Admin Reason: Patient Condition Contraindication Glucose (Glucose Gel 15 Gm Gel..Gram.) 15 gm PO Q15M PRN; Protocol PRN Reason: per Hypoglycemia Standing Ord. Heparin Sodium (Porcine) (Heparin Sodium,Porcine 5,000 Unit/Ml Vial) 5,000 unit SUBCUT BID [facility] Last Admin: 04/27/22 10:55 Dose: 5,000 unit Documented By: BENJI Piperacillin Sod/Tazobactam (Sod 3.375 gm/ Sodium Chloride) 50 mls @ 100 mls/hr IV Q6H [facility] Last Infusion: 04/27/22 12:05 Dose: 0 mls/hr Documented By: BENJI Insulin Glargine (Insulin Glargine,Hum.Rec.Anlog 100 Unit/Ml 10 Ml Vial) 100 unit SUBCUT DAILY [facility] Last Admin: 04/27/22 10:53 Dose: Not Given Documented By: BENJI Non-Admin Reason: Patient Condition Contraindication Insulin Human Lispro (Insulin Lispro 100 Unit/Ml 3 Ml Vial) 0 unit SUBCUT QIDACHS [facility]; Protocol Last Admin: 04/27/22 11:14 Dose: Not Given Documented By: BENJI Non-Admin Reason: No Insulin Coverage Morphine Sulfate (Morphine Sulfate 4 Mg/Ml Cartridge) 4 mg IVPUSH Q4H PRN; Protocol PRN Reason: Pain, Moderate (Pain Scale 4-6 Last Admin: 04/26/22 21:12 Dose: 4 mg Documented By: ROSITA Omeprazole (Omeprazole 20 Mg Capsule.Dr) 20 mg PO DAILY@0630 [facility] Last Admin: 04/27/22 05:50 Dose: 20 mg Documented By: USHA Ondansetron HCl (Ondansetron Hcl 4 Mg/2 Ml Vial) 4 mg IVPUSH Q8H PRN PRN Reason: Nausea and Vomiting Last Admin: 04/25/22 16:29 Dose: 4 mg Documented By: ERIKA Oxycodone HCl (Oxycodone Hcl Immed Release 5 Mg Tablet) 10 mg PO Q4H PRN PRN Reason: Pain, Severe (Pain Scale 7-10) Last Admin: 04/26/22 19:59 Dose: 10 mg Documented By: ROSITA Polyethylene Glycol (Polyethylene Glycol 3350 17 Gm Powd.Pack) 17 gm PO DAILY [facility] Last Admin: 04/27/22 10:53 Dose: Not Given Documented By: BENJI Non-Admin Reason: Patient Condition Contraindication Sodium Chloride (0.9 % Sodium Chloride Flush 3 Ml Syringe) 3 ml IVFLUSH QSHIFT [facility] Last Admin: 04/27/22 10:52 Dose: 3 ml Documented By: BENJI Spironolactone (Spironolactone 25 Mg Tablet) 50 mg PO DAILY [facility]; Protocol Last Admin: 04/27/22 10:53 Dose: Not Given Documented By: BENJI Non-Admin Reason: Patient Condition Contraindication Labs CBC & Chem 7: 04/27/22 05:15 04/27/22 05:15 Labs: Laboratory Results - last 24 hr 04/26/22 04/26/22 04/26/22 13:32 15:30 16:20 MCV MCH MCHC RDW Plt Count MPV Immature Gran % (Auto) Neut % (Auto) Lymph % (Auto) [place] % (Auto) Eos % (Auto) Baso % (Auto) Lymph # (Auto) [place] # (Auto) Eos # (Auto) Baso # (Auto) Abs Immat Gran (auto) Absolute Neuts (auto) Absolute Nucleated RBC Nucleated RBC % (auto) Neutrophils % (Manual) Band Neutrophils % Monocytes % (Manual) Metamyelocytes % Abs Neuts (Manual) Monocytes # (Manual) Metamyelocytes # Platelet Estimate Plt Morphology Comment RBC Morphology Polychromasia Acanthocytes (Spur) PT INR Anion Gap Estim Creat Clear Calc Estimated GFR POC Glucose 85 48 L* 159 H Fasting Glucose Calcium Total Bilirubin Direct Bilirubin AST ALT Alkaline Phosphatase Ammonia Total Protein Albumin 04/26/22 04/27/22 04/27/22 19:05 05:15 05:15 MCV 94.6 MCH 31.9 MCHC 33.7 RDW 15.3 Plt Count 160 MPV 10.2 Immature Gran % (Auto) Cancelled Neut % (Auto) Cancelled Lymph % (Auto) Cancelled [place] % (Auto) Cancelled Eos % (Auto) Cancelled Baso % (Auto) Cancelled Lymph # (Auto) Cancelled [place] # (Auto) Cancelled Eos # (Auto) Cancelled Baso # (Auto) Cancelled Abs Immat Gran (auto) Cancelled Absolute Neuts (auto) Cancelled Absolute Nucleated RBC 0.000 Nucleated RBC % (auto) 0.0 Neutrophils % (Manual) 60 Band Neutrophils % 37 H Monocytes % (Manual) 1 L Metamyelocytes % 2 Abs Neuts (Manual) 15.5 H Monocytes # (Manual) 0.2 Metamyelocytes # 0.3 Platelet Estimate NORMAL Plt Morphology Comment NORMAL RBC Morphology NOTED Polychromasia 1+ (0-2) Acanthocytes (Spur) 1+ (0-2) PT INR Anion Gap 15 Estim Creat Clear Calc 53.7 Estimated GFR 46 POC Glucose 149 H Fasting Glucose 21 L* Calcium 7.4 L Total Bilirubin 1.6 H Direct Bilirubin 0.8 H AST 30 D ALT 14 Alkaline Phosphatase 122 H Ammonia Total Protein 6.1 L Albumin 1.9 L 04/27/22 04/27/22 04/27/22 05:15 05:56 06:15 MCV MCH MCHC RDW Plt Count MPV Immature Gran % (Auto) Neut % (Auto) Lymph % (Auto) [place] % (Auto) Eos % (Auto) Baso % (Auto) Lymph # (Auto) [place] # (Auto) Eos # (Auto) Baso # (Auto) Abs Immat Gran (auto) Absolute Neuts (auto) Absolute Nucleated RBC Nucleated RBC % (auto) Neutrophils % (Manual) Band Neutrophils % Monocytes % (Manual) Metamyelocytes % Abs Neuts (Manual) Monocytes # (Manual) Metamyelocytes # Platelet Estimate Plt Morphology Comment RBC Morphology Polychromasia Acanthocytes (Spur) PT 17.8 H INR 1.5 H Anion Gap Estim Creat Clear Calc Estimated GFR POC Glucose 31 L* 39 L* Fasting Glucose Calcium Total Bilirubin Direct Bilirubin AST ALT Alkaline Phosphatase Ammonia Total Protein Albumin 04/27/22 04/27/22 04/27/22 06:26 06:35 06:53 MCV MCH MCHC RDW Plt Count MPV Immature Gran % (Auto) Neut % (Auto) Lymph % (Auto) [place] % (Auto) Eos % (Auto) Baso % (Auto) Lymph # (Auto) [place] # (Auto) Eos # (Auto) Baso # (Auto) Abs Immat Gran (auto) Absolute Neuts (auto) Absolute Nucleated RBC Nucleated RBC % (auto) Neutrophils % (Manual) Band Neutrophils % Monocytes % (Manual) Metamyelocytes % Abs Neuts (Manual) Monocytes # (Manual) Metamyelocytes # Platelet Estimate Plt Morphology Comment RBC Morphology Polychromasia Acanthocytes (Spur) PT INR Anion Gap Estim Creat Clear Calc Estimated GFR POC Glucose 232 H 196 H Fasting Glucose Calcium Total Bilirubin Direct Bilirubin AST ALT Alkaline Phosphatase Ammonia 59 H Total Protein Albumin 04/27/22 04/27/22 04/27/22 07:06 10:22 10:33 MCV MCH MCHC RDW Plt Count MPV Immature Gran % (Auto) Neut % (Auto) Lymph % (Auto) [place] % (Auto) Eos % (Auto) Baso % (Auto) Lymph # (Auto) [place] # (Auto) Eos # (Auto) Baso # (Auto) Abs Immat Gran (auto) Absolute Neuts (auto) Absolute Nucleated RBC Nucleated RBC % (auto) Neutrophils % (Manual) Band Neutrophils % Monocytes % (Manual) Metamyelocytes % Abs Neuts (Manual) Monocytes # (Manual) Metamyelocytes # Platelet Estimate Plt Morphology Comment RBC Morphology Polychromasia Acanthocytes (Spur) PT INR Anion Gap Estim Creat Clear Calc Estimated GFR POC Glucose 175 H 140 H Fasting Glucose Calcium Total Bilirubin Direct Bilirubin AST ALT Alkaline Phosphatase Ammonia 50 Total Protein Albumin Microbiology Microbiology Results: Microbiology 04/25/22 12:20 Gram Stain - Final Abdominal Fluid Routine Culture - Final No growth after 2 days Anaerobic Culture - Preliminary No growth to date. 04/25/22 02:13 Blood Culture - Preliminary Blood - Venous No growth after 48 hours. Assessment and Plan (1) SBP (spontaneous bacterial peritonitis): Status: Acute (2) Ascites: Status: Acute (3) HTN (hypertension): Status: Acute (4) Diabetes type 2, controlled: Status: Acute Plan 56-year-old female with past medical history of liver cirrhosis, and ascites previously admitted for persistent uses presents to the hospital today with complaints of abdominal pain nausea vomiting; vomiting improved however a follow-up pain persistent 1.SBP - secondary to abdominal ascites - 3L removed with little relief -continue Zosyn pending cultures 2.Ascites/cirrhosis - due to alcoholic cirrhosis -Lasix added -follow renals/divalents 3.Hypertension -acceptable control on current therapies - adjust as indicated 4.Diabetesn II - low-dose sliding scale insulin - hold home insulin given hypoglycemia - diabetic diet DVT prophylaxis: Heparin subQ will require ongoing hospitalization the the to treat spontaneous bacterial peritonitis with IV Zosyn; IV volume repletion secondary to nausea and vomiting Quality Stroke Does the patient have a stroke diagnosis?: No VTE Prior VTE?: No VTE Risk Level:: Medical - moderate - high VTE Device Contraindication: Treatment Not Indicated VTE Drug Contraindication: N/A - Med Ordered
--- NOTE | 2022-04-27 13:33 | W.PM.IDCN ---
History of Present Illness Data of Consult Service Date: 04/27/22 Requesting physician: Lemuel Madsen Primary Care Provider: Eden Carrillo MD HPI Reason for consult: spontaneous bacterial peritonitis She presents with three days worsening 7/10 generalized abdominal discomfort. She has no fever or chills. She has some aspects of encephalopathy with slow progression of speech. She has 11,000 WBC with plus 4 polys in ascitic fluid. [facility] Past Medical History Medical History Cirrhosis Cirrhosis Diabetes (~01/31/21) Diabetes mellitus with hyperglycemia HTN (hypertension) UTI due to extended-spectrum beta lactamase (ESBL) producing Escherichia coli Family History Family History Mother No problems noted. Father No problems noted. Family history: reviewed and not pertinent Social History Social History Household Members: Children Housing: House Do you presently have visiting nurse or other home services: No Alcohol intake: never Patient Tobacco Use Status: Never used Tobacco Smoked in Last 30 Days: No e-Cigarette/Vaping Use: Never Used Patient Interested in Nicotine Replacement: No Patient Given Instructions on How to Stop Smoking: No Second Hand Smoke Exposure: No Use of substances other than those prescribed or required for medical reasons: No Currently Displaying Signs/Symptoms of Drug Intoxication Withdrawal: No Any prior treatment program specific to substance use: No Have you been hit, kicked, punched, or otherwise hurt by someone within the past year? If so, by whom?: No Do you feel safe in your current relationship?: No Is there a partner from a previous relationship who is making you feel unsafe now?: No Are you made to feel afraid or neglected: No Cultural Healthcare Practices: yazidism Advance Directives: No Advance Directives Information Provided: No Do you have thoughts of harming others: None Do you have a plan to hurt others: No Plan Recently lost weight without trying: Yes How much weight loss: Unsure Eating poorly because of decreased appetite: Yes Nutrition screen score: 5 Nutrition Risks: No Nutritional Risk Patient : No : No Poor oral hygiene: No service: No Current occupational status: unemployed and disabled Cognitive needs: No Hearing needs: No Vision needs: No Meds Allergies Allergy/AdvReac Type Severity Reaction Status Date / Time No Known Allergies Allergy Verified 07/19/21 14:20 [No Known Allergies*] Active Medications: Current Medications Acetaminophen (Acetaminophen 325 Mg Tablet) 650 mg PO Q6H PRN PRN Reason: Pain, Mild (Pain Scale 1-3) Carvedilol (Carvedilol 3.125 Mg Tablet) 3.125 mg PO BID [facility]; Protocol Last Admin: 04/27/22 10:52 Dose: Not Given Dextrose (Dextrose 50 % 25 Gm/50 Ml Syringe) 25 gm IVPUSH Q15M PRN; Protocol PRN Reason: per Hypoglycemia Standing Ord. Docusate Sodium (Docusate Sodium 100 Mg Capsule) 100 mg PO DAILY PRN PRN Reason: Constipation Furosemide (Furosemide 20 Mg Tablet) 20 mg PO DAILY [facility]; Protocol Last Admin: 04/27/22 10:53 Dose: Not Given Glucose (Glucose Gel 15 Gm Gel..Gram.) 15 gm PO Q15M PRN; Protocol PRN Reason: per Hypoglycemia Standing Ord. Heparin Sodium (Porcine) (Heparin Sodium,Porcine 5,000 Unit/Ml Vial) 5,000 unit SUBCUT BID [facility] Last Admin: 04/27/22 10:55 Dose: 5,000 unit Piperacillin Sod/Tazobactam (Sod 3.375 gm/ Sodium Chloride) 50 mls @ 100 mls/hr IV Q6H [facility] Last Infusion: 04/27/22 12:05 Dose: Infused Insulin Human Lispro (Insulin Lispro 100 Unit/Ml 3 Ml Vial) 0 unit SUBCUT QIDACHS [facility]; Protocol Last Admin: 04/27/22 11:14 Dose: Not Given Morphine Sulfate (Morphine Sulfate 4 Mg/Ml Cartridge) 4 mg IVPUSH Q4H PRN; Protocol PRN Reason: Pain, Moderate (Pain Scale 4-6 Last Admin: 04/26/22 21:12 Dose: 4 mg Omeprazole (Omeprazole 20 Mg Capsule.Dr) 20 mg PO DAILY@0630 [facility] Last Admin: 04/27/22 05:50 Dose: 20 mg Ondansetron HCl (Ondansetron Hcl 4 Mg/2 Ml Vial) 4 mg IVPUSH Q8H PRN PRN Reason: Nausea and Vomiting Last Admin: 04/25/22 16:29 Dose: 4 mg Oxycodone HCl (Oxycodone Hcl Immed Release 5 Mg Tablet) 10 mg PO Q4H PRN PRN Reason: Pain, Severe (Pain Scale 7-10) Last Admin: 04/26/22 19:59 Dose: 10 mg Polyethylene Glycol (Polyethylene Glycol 3350 17 Gm Powd.Pack) 17 gm PO DAILY [facility] Last Admin: 04/27/22 10:53 Dose: Not Given Sodium Chloride (0.9 % Sodium Chloride Flush 3 Ml Syringe) 3 ml IVFLUSH QSHIFT [facility] Last Admin: 04/27/22 10:52 Dose: 3 ml Spironolactone (Spironolactone 25 Mg Tablet) 50 mg PO DAILY [facility]; Protocol Last Admin: 04/27/22 10:53 Dose: Not Given Home Medications Medication Instructions Recorded Confirmed Last Taken Type carvedilol 3.125 mg tablet 1 tab PO BID 04/25/22 04/25/22 Unknown History furosemide 20 mg tablet 1 tab PO DAILY 04/25/22 04/25/22 Unknown History insulin aspart U-100 100 unit/mL See Protocol subcut BID 04/25/22 04/25/22 Unknown History (3 mL) subcutaneous pen (Novolog Flexpen U-100 Insulin aspart) insulin glargine 100 unit/mL (3 100 unit subcut DAILY 04/25/22 04/25/22 Unknown History mL) subcutaneous pen (Lantus Solostar U-100 Insulin) polyethylene glycol 3350 17 17 g PO DAILY 04/25/22 04/25/22 Unknown History gram/dose oral powder spironolactone 25 mg tablet 2 tab PO DAILY 04/25/22 04/25/22 Unknown History Physical Exam Vital Signs: Vital Signs: Last Vital Signs Temp 97.5 F 04/27/22 10:53 Pulse 89 04/27/22 10:53 Resp 20 04/27/22 10:53 BP 112/56 L 04/27/22 10:53 Pulse Ox 93 04/27/22 10:53 O2 Del Method 04/27/22 10:53 BMI result Body Mass Index 30.2 Const: General: cooperative HEENT: Head: Yes normal to inspection Face and sinus: Yes normal facial exam Mouth: Normal oral and palatal mucosa present Teeth and gingiva: dentition normal Eyes: General: appearance normal, both eyes and all related structures Pupils: Equal, round and reactive pupils present Resp: Effort & Inspection: normal respiratory effort Cardio: Rate: regular rate Rhythm: regular rhythm GI: Inspection: Yes distended Palpation (GI): Tenderness to palpation present (GI) and Hepatomegaly present : General: Yes no CVA tenderness Back/Spine/Pelvis: Back: no CVA tenderness Skin: General skin exam: no rashes or lesions noted Neuro: General: moves all extremities Cranial nerves: Yes Equal, round and reactive pupils present Extrem: General: Yes normal to inspection Psych: Appearance: grossly normal Results Labs CBC & Chem 7: 04/27/22 05:15 04/27/22 05:15 Labs: Short CBC 04/27/22 Range/Units 05:15 WBC 16.0 H (4.8-10.8) X10*3/uL Hgb 11.8 L (12.0-16.0) g/dl Hct 35.0 L (37.0-47.0) % Plt Count 160 (160-400) X10*3/uL BMP 04/27/22 05:15 Sodium 135 Potassium 3.5 Chloride 101 Carbon Dioxide 23 BUN 18 H Creatinine 1.21 Calcium 7.4 L Liver Function 04/27/22 Range/Units 05:15 Total Bilirubin 1.6 H (0.0-1.0) mg/dL Direct Bilirubin 0.8 H (0.0-0.5) mg/dL AST 30 D (5-31) U/L ALT 14 (0-31) U/L Alkaline Phosphatase 122 H (39-117) U/L Albumin 1.9 L (3.5-5.0) g/dL Microbiology Microbiology Results: Microbiology 04/25/22 12:20 Abdominal Fluid Gram Stain - Final 04/25/22 12:20 Abdominal Fluid Routine Culture - Final No growth after 2 days 04/25/22 12:20 Abdominal Fluid Anaerobic Culture - Preliminary No growth to date. 04/25/22 02:13 Blood - Venous Blood Culture - Preliminary No growth after 48 hours. Assessment and Plan (1) SBP (spontaneous bacterial peritonitis): Status: Acute SBP due to cirrhosis due to alcohol use disorder. She has no organisms identified. Most likely gram negative organisms. (2) Diabetes type 2, controlled: Status: Acute (3) Cirrhosis: Qualifiers: Ascites presence: with ascites Hepatic cirrhosis type: alcoholic cirrhosis Qualified Code(s): K70.31 - Alcoholic cirrhosis of liver with ascites Status: Acute Plan Would continue piperacillin/tazobactam which can cover any possible resistant organisms and await any final culture. She should take po Levaquin 750 mg on discharge for total 7 days and then po Levaquin 750 mg every ,,Saturday prevention.
--- NOTE | 2022-04-27 13:38 | MHC.CM.PN ---
EMR REVIEW, PATIENT CONTINUES TO NEED INPATIENT HOSPITALIZATION R/T IV ANTIBIOTIC (ZOSYN) TREATMENT FOR SPONTANEOUS BACTERIAL PERITONITIS; IV VOLUME REPLETION SECONDARY TO NAUSEA AND VOMITING. D/C PLAN CONTINUES TO BE HOME SELF-CARE. CM WILL CONTINUE TO FOLLOW FOR D/C NEEDS.
[2022-04-27] MEDS: Lactulose 20 GM/30 ML SOLUTION 30 GM PO (14:11)
[2022-04-27] MEDS: oxyCODONE HCl Immed Release 5 MG TABLET 10 MG PO ×3 (15:17→23:38)
[2022-04-27 16:38] LABS: Glucose, Whole Blood 291 mg/dL (60-115)
[2022-04-27] MEDS: Insulin Lispro 100 UNIT/ML 3 ML VIAL SUBCUT ×2 (17:02→20:03)
[2022-04-27] MEDS: carvediloL 3.125 MG TABLET PO (19:40)
[2022-04-27 19:44] LABS: Glucose, Whole Blood 375 mg/dL (60-115)
[2022-04-28] VITALS (10 sets, daily range): BP systolic 94–151; BP diastolic 57–69; PULSE 83–95; RESP 16–17; TEMP 36.3–37.2; O2SAT 91–100
[2022-04-28] MEDS: Piperacillin Sodium/Tazobactam 3.375 GM in 0.9 % Sodium Chloride 50 ML IV ×3 (02:02→14:46)
[2022-04-28] MEDS: Omeprazole 20 MG CAPSULE.DR PO (05:36)
[2022-04-28] MEDS: oxyCODONE HCl Immed Release 5 MG TABLET 10 MG PO (05:36)
[2022-04-28 07:10] LABS: MANUAL DIFF FLAG NO
[2022-04-28 07:15] LABS: Basophils Percent Auto 0.4 % (0-2); Hematocrit 30.8 % (37.0-47.0); Hemoglobin 10.4 g/dl (12.0-16.0); Imm Gran Abs Auto 0.05 X10*3/uL (0.00-0.03); Imm Gran Pct Auto 0.5 % (0.0-0.4); Lymphocytes Absolute Auto 0.5 X10*3/uL (1.2-4.9); Mean Corpuscular HGB Conc 33.8 g/dl (31.0-35.0); Mean Corpuscular Hemoglobin 31.8 pg (27.0-33.0); Mean Corpuscular Volume 94.2 fL (80.0-98.0); Mean Platelet Volume 11.1 fL (9.4-12.3); Monocytes Absolute Auto 0.8 X10*3/uL (0.1-1.2); Monocytes Percent Auto 7.8 % (2-11); Neutrophils Absolute Auto 8.6 x10*3/uL (2.0-8.3); Neutrophils Percent Auto 86.3 % (45-73); Platelet Count 111 X10*3/uL (160-400); Red Blood Count 3.27 X10*6/uL (4.20-5.50); Red Cell Distribution Width 15.3 % (11.0-16.0); White Blood Count 9.9 X10*3/uL (4.8-10.8)
[2022-04-28 08:03] LABS: Alanine Aminotransferase 15 U/L (0-31); Albumin Level 1.7 g/dL (3.5-5.0); Alkaline Phosphatase 126 U/L (39-117); Anion Gap 14 (12-20); Aspartate Amino Transferase 21 U/L (5-31); Bilirubin Total 1.2 mg/dL (0.0-1.0); Blood Urea Nitrogen 20 mg/dL (9-16); Calcium 7.2 mg/dL (8.4-10.2); Carbon Dioxide 23 mmol/L (22-29); Chloride 98 mmol/L (96-108); Creatinine Clr Calc Pharmacy 47.4; Estimated Glomerular Filt Rate 40; Glucose Fasting 372 mg/dL (60-99); Potassium 4.2 mmol/L (3.3-5.1); Sodium 131 mmol/L (135-145); Total Protein 5.5 g/dL (6.5-8.0)
[2022-04-28] MEDS: 0.9 % Sodium Chloride Flush 3 ML SYRINGE IVFLUSH ×2 (08:16→22:23)
[2022-04-28 08:17] LABS: Glucose, Whole Blood 336 mg/dL (60-115)
[2022-04-28] MEDS: Insulin Lispro 100 UNIT/ML 3 ML VIAL SUBCUT ×4 (08:17→22:20)
[2022-04-28] MEDS: polyethylene glycoL 3350 17 GM POWD.PACK PO (08:23)
[2022-04-28] MEDS: Albumin Human 25 % 100 ML IV ×3 (09:12→20:05)
[2022-04-28] MEDS: Insulin Glargine,Hum.rec.anlog 100 UNIT/ML 10 ML VIAL 25 UNIT SUBCUT (09:22)
[2022-04-28] MEDS: carvediloL 3.125 MG TABLET PO ×2 (09:24→20:07)
[2022-04-28] MEDS: Spironolactone 25 MG TABLET 50 MG PO (09:24)
[2022-04-28] MEDS: Furosemide 20 MG TABLET PO (09:24)
[2022-04-28] MEDS: Heparin Sodium,Porcine 5,000 UNIT/ML VIAL 5000 UNIT SUBCUT ×2 (09:25→20:07)
[2022-04-28 12:11] LABS: Glucose, Whole Blood 194 mg/dL (60-115)
[2022-04-28 13:29] LABS: Glucose, Whole Blood 192 mg/dL (60-115)
--- NOTE | 2022-04-28 13:34 | HO.PM.IMPN ---
Subjective Subjective Date of Service: 04/28/22 Interval History: This AM pt was not speaking, instead was writing everything down to communicate. Per Dr Madsen, yesterday, she was not speaking but was noted to be texting on her phone. This afternoon a rapid response was called for pt's unresponsiveness- I found her awake with normal pupils + gag reflex, normal tone in all 4 extremities, but not speaking. No facial droop. Blood sugar 194. Review of Systems Review of Systems: Yes Unobtainable due to mental status Physical Exam Vital Signs: Vital Signs: Last Vital Signs Temp 97.4 F 04/28/22 12:00 Pulse 84 04/28/22 12:00 Resp 16 04/28/22 12:00 BP 116/64 04/28/22 12:00 Pulse Ox 93 04/28/22 12:00 O2 Del Method 04/28/22 12:00 BMI result Body Mass Index 30.2 Gen: in no acute distress HEENT: sclera anicteric, moist mucus membranes Neck: supple Lungs: clear to auscultation bilaterally Heart: regular rate and rhythm, no murmurs Abd: distended, tender Ext: no edema Skin: warm/well-perfused Neuro: awake, no asterixis, no pronator drift, no facial droop Psych: impaired insight Objective Data Active Medications Acetaminophen (Acetaminophen 325 Mg Tablet) 650 mg PO Q6H PRN PRN Reason: Pain, Mild (Pain Scale 1-3) Carvedilol (Carvedilol 3.125 Mg Tablet) 3.125 mg PO BID [facility]; Protocol Last Admin: 04/28/22 09:24 Dose: 3.125 mg Documented By: PATRICIA Dextrose (Dextrose 50 % 25 Gm/50 Ml Syringe) 25 gm IVPUSH Q15M PRN; Protocol PRN Reason: per Hypoglycemia Standing Ord. Docusate Sodium (Docusate Sodium 100 Mg Capsule) 100 mg PO DAILY PRN PRN Reason: Constipation Furosemide (Furosemide 20 Mg Tablet) 20 mg PO DAILY [facility]; Protocol Last Admin: 04/28/22 09:24 Dose: 20 mg Documented By: PATRICIA Glucose (Glucose Gel 15 Gm Gel..Gram.) 15 gm PO Q15M PRN; Protocol PRN Reason: per Hypoglycemia Standing Ord. Heparin Sodium (Porcine) (Heparin Sodium,Porcine 5,000 Unit/Ml Vial) 5,000 unit SUBCUT BID [facility] Last Admin: 04/28/22 09:25 Dose: 5,000 unit Documented By: PATRICIA Piperacillin Sod/Tazobactam (Sod 3.375 gm/ Sodium Chloride) 50 mls @ 100 mls/hr IV Q6H [facility] Last Infusion: 04/28/22 09:27 Dose: 0 mls/hr Documented By: PATRICIA Albumin Human (Kedbumin 25 %) 100 mls @ 100 mls/hr IV Q6H [facility] Stop: 04/29/22 02:59 Last Admin: 04/28/22 12:37 Dose: 100 mls/hr Documented By: PATRICIA Insulin Glargine (Insulin Glargine,Hum.Rec.Anlog 100 Unit/Ml 10 Ml Vial) 25 unit SUBCUT DAILY [facility] Last Admin: 04/28/22 09:22 Dose: 25 unit Documented By: PATRICIA Insulin Human Lispro (Insulin Lispro 100 Unit/Ml 3 Ml Vial) 0 unit SUBCUT QIDACHS [facility]; Protocol Last Admin: 04/28/22 12:35 Dose: 2 unit Documented By: PATRICIA Morphine Sulfate (Morphine Sulfate 4 Mg/Ml Cartridge) 4 mg IVPUSH Q4H PRN; Protocol PRN Reason: Pain, Moderate (Pain Scale 4-6 Last Admin: 04/26/22 21:12 Dose: 4 mg Documented By: ROSITA Omeprazole (Omeprazole 20 Mg Capsule.Dr) 20 mg PO DAILY@0630 [facility] Last Admin: 04/28/22 05:36 Dose: 20 mg Documented By: NIR Ondansetron HCl (Ondansetron Hcl 4 Mg/2 Ml Vial) 4 mg IVPUSH Q8H PRN PRN Reason: Nausea and Vomiting Last Admin: 04/25/22 16:29 Dose: 4 mg Documented By: ERIKA Oxycodone HCl (Oxycodone Hcl Immed Release 5 Mg Tablet) 10 mg PO Q4H PRN PRN Reason: Pain, Severe (Pain Scale 7-10) Last Admin: 04/28/22 05:36 Dose: 10 mg Documented By: NIR Polyethylene Glycol (Polyethylene Glycol 3350 17 Gm Powd.Pack) 17 gm PO DAILY [facility] Last Admin: 04/28/22 08:23 Dose: 17 gm Documented By: PATRICIA Sodium Chloride (0.9 % Sodium Chloride Flush 3 Ml Syringe) 3 ml IVFLUSH QSHIFT [facility] Last Admin: 04/28/22 08:16 Dose: 3 ml Documented By: PATRICIA Spironolactone (Spironolactone 25 Mg Tablet) 50 mg PO DAILY [facility]; Protocol Last Admin: 04/28/22 09:24 Dose: 50 mg Documented By: PATRICIA Labs CBC & Chem 7: 04/28/22 05:15 04/28/22 05:15 Labs: Laboratory Results - last 24 hr 04/27/22 04/27/22 04/28/22 16:24 19:34 05:15 MCV 94.2 MCH 31.8 MCHC 33.8 RDW 15.3 Plt Count 111 L D MPV 11.1 Immature Gran % (Auto) 0.5 H Neut % (Auto) 86.3 H Lymph % (Auto) 5.0 L [place] % (Auto) 7.8 Eos % (Auto) 0.0 Baso % (Auto) 0.4 Lymph # (Auto) 0.5 L [place] # (Auto) 0.8 Eos # (Auto) 0.0 Baso # (Auto) 0.0 Abs Immat Gran (auto) 0.05 H Absolute Neuts (auto) 8.6 H Absolute Nucleated RBC 0.000 Nucleated RBC % (auto) 0.0 Anion Gap Estim Creat Clear Calc Estimated GFR POC Glucose 291 H 375 H* Fasting Glucose Calcium Total Bilirubin AST ALT Alkaline Phosphatase Total Protein Albumin 04/28/22 04/28/22 04/28/22 05:15 07:37 11:43 MCV MCH MCHC RDW Plt Count MPV Immature Gran % (Auto) Neut % (Auto) Lymph % (Auto) [place] % (Auto) Eos % (Auto) Baso % (Auto) Lymph # (Auto) [place] # (Auto) Eos # (Auto) Baso # (Auto) Abs Immat Gran (auto) Absolute Neuts (auto) Absolute Nucleated RBC Nucleated RBC % (auto) Anion Gap 14 Estim Creat Clear Calc 47.4 Estimated GFR 40 POC Glucose 336 H 194 H Fasting Glucose 372 H* D Calcium 7.2 L Total Bilirubin 1.2 H AST 21 ALT 15 Alkaline Phosphatase 126 H Total Protein 5.5 L Albumin 1.7 L 04/28/22 13:24 MCV MCH MCHC RDW Plt Count MPV Immature Gran % (Auto) Neut % (Auto) Lymph % (Auto) [place] % (Auto) Eos % (Auto) Baso % (Auto) Lymph # (Auto) [place] # (Auto) Eos # (Auto) Baso # (Auto) Abs Immat Gran (auto) Absolute Neuts (auto) Absolute Nucleated RBC Nucleated RBC % (auto) Anion Gap Estim Creat Clear Calc Estimated GFR POC Glucose 192 H Fasting Glucose Calcium Total Bilirubin AST ALT Alkaline Phosphatase Total Protein Albumin Microbiology Microbiology Results: Microbiology 04/25/22 12:20 Gram Stain - Final Abdominal Fluid Routine Culture - Final No growth after 2 days Anaerobic Culture - Preliminary No growth to date. 04/26/22 13:55 Blood Culture - Preliminary Blood - Venous No growth after 24 hours. 04/26/22 13:55 Blood Culture - Preliminary Blood - Venous No growth after 24 hours. Assessment and Plan (1) SBP (spontaneous bacterial peritonitis): Status: Acute (2) Ascites: Status: Acute (3) HTN (hypertension): Status: Acute (4) Diabetes type 2, controlled: Status: Acute Plan hospital d#4 56yo F with decompensated cirrhosis + ascites presenting with abd pain/N/V and admitted for CNNA (SBP variant) # SBP - culture-negative, continue pip/silverio per ID, change to levofloxacin 750 mg/d upon discharge x 7d then MWF for prophylaxis - will give IV albumin today - continue furosemide + spironolactone - may need therapeutic tap 04/30 # altered mental status - suspect psychogenic/conversion but will consult Neurology; per RN, pt's ex-partner visited yesterday despite restraining order and this upset her; may benefit from Psych consult # HTN - continue carvedilol # DM2 with hypoglycemia, now hyperglycemia - resume Lantus at 1/4 home dose, continue Humalog # VTE ppx: UFH In my clinical judgment, the patient requires continued hospitalization for the following reasons: IV ABX Quality Stroke Does the patient have a stroke diagnosis?: No VTE Prior VTE?: No VTE Risk Level:: Medical - moderate - high VTE Device Contraindication: Treatment Not Indicated VTE Drug Contraindication: N/A - Med Ordered
--- NOTE | 2022-04-28 14:04 | PC.NURSE ---
At 1320 RR called as pt became unresponsive for 5 seconds, Jackie ALEXANDER at bedside - then able to follow commands, VSS, sugar 190's - STAT CT per orders
[2022-04-28 18:45] LABS: Glucose, Whole Blood 264 mg/dL (60-115)
[2022-04-28 20:14] LABS: Glucose, Whole Blood 261 mg/dL (60-115)
[2022-04-28 22:21] LABS: Glucose, Whole Blood 312 mg/dL (60-115)
[2022-04-29] MEDS: Piperacillin Sodium/Tazobactam 3.375 GM in 0.9 % Sodium Chloride 50 ML IV ×5 (00:10→23:30)
[2022-04-29] MEDS: Albumin Human 25 % 100 ML IV (00:42)
[2022-04-29 03:37] VITALS: BP 109/52; PULSE 87; RESP 17; TEMP 36.9; O2SAT 92
[2022-04-29 05:49] LABS: Hematocrit 27.4 % (37.0-47.0); Hemoglobin 9.6 g/dl (12.0-16.0); Mean Corpuscular Hemoglobin 32.3 pg (27.0-33.0); Mean Corpuscular Volume 92.3 fL (80.0-98.0); Mean Platelet Volume 9.6 fL (9.4-12.3); Red Blood Count 2.97 X10*6/uL (4.20-5.50); Red Cell Distribution Width 15.2 % (11.0-16.0); White Blood Count 8.1 X10*3/uL (4.8-10.8)
[2022-04-29 05:50] LABS: Platelet Count 98 X10*3/uL (160-400)
[2022-04-29 05:54] LABS: INTERNATIONAL NORM RATIO 1.7 (0.9-1.1); Prothrombin Time 19.7 SEC (10.0-13.1)
[2022-04-29] MEDS: Omeprazole 20 MG CAPSULE.DR PO (06:03)
[2022-04-29 06:25] LABS: Alanine Aminotransferase 11 U/L (0-31); Albumin Level 2.7 g/dL (3.5-5.0); Alkaline Phosphatase 100 U/L (39-117); Anion Gap 14 (12-20); Aspartate Amino Transferase 15 U/L (5-31); Bilirubin Total 1.9 mg/dL (0.0-1.0); Blood Urea Nitrogen 21 mg/dL (9-16); Calcium 7.6 mg/dL (8.4-10.2); Carbon Dioxide 24 mmol/L (22-29); Chloride 99 mmol/L (96-108); Creatinine Clr Calc Pharmacy 50.3; Estimated Glomerular Filt Rate 42; Glucose Random 271 mg/dL (60-115); Potassium 4.1 mmol/L (3.3-5.1); Sodium 133 mmol/L (135-145); Total Protein 5.5 g/dL (6.5-8.0)
[2022-04-29 07:02] VITALS: BP 90/52; PULSE 83; RESP 18; TEMP 36.1; O2SAT 93
[2022-04-29 07:26] LABS: Glucose, Whole Blood 264 mg/dL (60-115)
[2022-04-29] MEDS: Insulin Lispro 100 UNIT/ML 3 ML VIAL SUBCUT ×4 (08:14→21:26)
[2022-04-29] MEDS: polyethylene glycoL 3350 17 GM POWD.PACK PO (08:16)
[2022-04-29] MEDS: Heparin Sodium,Porcine 5,000 UNIT/ML VIAL 5000 UNIT SUBCUT (08:19)
[2022-04-29] MEDS: 0.9 % Sodium Chloride Flush 3 ML SYRINGE IVFLUSH ×2 (08:22→21:27)
[2022-04-29] MEDS: Insulin Glargine,Hum.rec.anlog 100 UNIT/ML 10 ML VIAL 30 UNIT SUBCUT (08:45)
[2022-04-29] MEDS: Furosemide 40 MG TABLET PO (08:45)
[2022-04-29] MEDS: Spironolactone 25 MG TABLET 100 MG PO (08:45)
[2022-04-29 08:48] VITALS: BP 100/60; PULSE 80
[2022-04-29] MEDS: Phytonadione (Vit K1) Oral 10 MG/ML AMPUL 5 MG PO (11:17)
--- NOTE | 2022-04-29 11:21 | P.PNIM_ITS ---
Subjective Subjective Date of Service: 04/29/22 Interval History: now talking normally no recollection of yesterday's events c/o abd swelling/pain no hematochezia or melena Review of Systems Review of Systems: Yes all other systems are reviewed and are negative Physical Exam Vital Signs: Vital Signs: Last Vital Signs Temp 97 F 04/29/22 07:02 Pulse 80 04/29/22 08:48 Resp 18 04/29/22 07:02 BP 100/60 04/29/22 08:48 Pulse Ox 93 04/29/22 07:02 O2 Del Method 04/29/22 07:02 O2 Flow Rate 6 04/28/22 13:35 BMI result Body Mass Index 30.2 Gen: in no acute distress HEENT: sclera anicteric, moist mucus membranes Neck: supple Lungs: clear to auscultation bilaterally Heart: regular rate and rhythm, no murmurs Abd: distended, tender Ext: no edema Skin: warm/well-perfused Neuro: awake and alert and oriented x3, no asterixis Psych: normal affect Objective Data Active Medications Acetaminophen (Acetaminophen 325 Mg Tablet) 650 mg PO Q6H PRN PRN Reason: Pain, Mild (Pain Scale 1-3) Carvedilol (Carvedilol 3.125 Mg Tablet) 3.125 mg PO BID [facility]; Protocol Last Admin: 04/29/22 08:19 Dose: Not Given Documented By: PATRICIA Non-Admin Reason: Decreased Blood Pressure Dextrose (Dextrose 50 % 25 Gm/50 Ml Syringe) 25 gm IVPUSH Q15M PRN; Protocol PRN Reason: per Hypoglycemia Standing Ord. Docusate Sodium (Docusate Sodium 100 Mg Capsule) 100 mg PO DAILY PRN PRN Reason: Constipation Furosemide (Furosemide 40 Mg Tablet) 40 mg PO DAILY [facility]; Protocol Last Admin: 04/29/22 08:45 Dose: 40 mg Documented By: PATRICIA Glucose (Glucose Gel 15 Gm Gel..Gram.) 15 gm PO Q15M PRN; Protocol PRN Reason: per Hypoglycemia Standing Ord. Heparin Sodium (Porcine) (Heparin Sodium,Porcine 5,000 Unit/Ml Vial) 5,000 unit SUBCUT BID [facility] Last Admin: 04/29/22 08:19 Dose: 5,000 unit Documented By: PATRICIA Piperacillin Sod/Tazobactam (Sod 3.375 gm/ Sodium Chloride) 50 mls @ 100 mls/hr IV Q6H [facility] Last Infusion: 04/29/22 07:18 Dose: 0 mls/hr Documented By: PATRICIA Insulin Glargine (Insulin Glargine,Hum.Rec.Anlog 100 Unit/Ml 10 Ml Vial) 30 unit SUBCUT DAILY [facility] Last Admin: 04/29/22 08:45 Dose: 30 unit Documented By: PATRICIA Insulin Human Lispro (Insulin Lispro 100 Unit/Ml 3 Ml Vial) 0 unit SUBCUT QIDACHS [facility]; Protocol Last Admin: 04/29/22 08:14 Dose: 6 unit Documented By: PATRICIA Morphine Sulfate (Morphine Sulfate 4 Mg/Ml Cartridge) 4 mg IVPUSH Q4H PRN; Protocol PRN Reason: Pain, Moderate (Pain Scale 4-6 Last Admin: 04/26/22 21:12 Dose: 4 mg Documented By: ROSITA Omeprazole (Omeprazole 20 Mg Capsule.) 20 mg PO DAILY@0630 [facility] Last Admin: 04/29/22 06:03 Dose: 20 mg Documented By: STEVEN Ondansetron HCl (Ondansetron Hcl 4 Mg/2 Ml Vial) 4 mg IVPUSH Q8H PRN PRN Reason: Nausea and Vomiting Last Admin: 04/25/22 16:29 Dose: 4 mg Documented By: ERIKA Oxycodone HCl (Oxycodone Hcl Immed Release 5 Mg Tablet) 10 mg PO Q4H PRN PRN Reason: Pain, Severe (Pain Scale 7-10) Last Admin: 04/28/22 05:36 Dose: 10 mg Documented By: CASTILFarrah Polyethylene Glycol (Polyethylene Glycol 3350 17 Gm Powd.Pack) 17 gm PO DAILY [facility] Last Admin: 04/29/22 08:16 Dose: 17 gm Documented By: PATRICIA Sodium Chloride (0.9 % Sodium Chloride Flush 3 Ml Syringe) [facility] Last Admin: 04/29/22 08:22 Dose: 3 ml Documented By: PATRICIA Spironolactone (Spironolactone 25 Mg Tablet) 100 mg PO DAILY [facility]; Protocol Last Admin: 04/29/22 08:45 Dose: 100 mg Documented By: PATRICIA Labs CBC & Chem 7: 04/29/22 05:36 04/29/22 05:36 Labs: Laboratory Results - last 24 hr 04/28/22 04/28/22 04/28/22 11:43 13:24 18:38 MCV MCH MCHC RDW Plt Count MPV Absolute Nucleated RBC Nucleated RBC % (auto) PT INR Anion Gap Estim Creat Clear Calc Estimated GFR POC Glucose 194 H 192 H 264 H Random Glucose Calcium Total Bilirubin AST ALT Alkaline Phosphatase Total Protein Albumin 04/28/22 04/28/22 04/29/22 20:03 22:13 05:36 MCV 92.3 MCH 32.3 MCHC 35.0 RDW 15.2 Plt Count 98 L MPV 9.6 Absolute Nucleated RBC 0.000 Nucleated RBC % (auto) 0.0 PT INR Anion Gap Estim Creat Clear Calc Estimated GFR POC Glucose 261 H 312 H Random Glucose Calcium Total Bilirubin AST ALT Alkaline Phosphatase Total Protein Albumin 04/29/22 04/29/22 04/29/22 05:36 05:36 07:02 MCV MCH MCHC RDW Plt Count MPV Absolute Nucleated RBC Nucleated RBC % (auto) PT 19.7 H INR 1.7 H Anion Gap 14 Estim Creat Clear Calc 50.3 Estimated GFR 42 POC Glucose 264 H Random Glucose 271 H Calcium 7.6 L Total Bilirubin 1.9 H AST 15 ALT 11 Alkaline Phosphatase 100 D Total Protein 5.5 L Albumin 2.7 L D Microbiology Microbiology Results: Microbiology 04/25/22 12:20 Gram Stain - Final Abdominal Fluid Routine Culture - Final No growth after 2 days Anaerobic Culture - Preliminary No growth to date. 04/26/22 13:55 Blood Culture - Preliminary Blood - Venous No growth after 48 hours. 04/26/22 13:55 Blood Culture - Preliminary Blood - Venous No growth after 48 hours. Assessment and Plan (1) SBP (spontaneous bacterial peritonitis): Status: Acute (2) Ascites: Status: Acute (3) HTN (hypertension): Status: Acute (4) Diabetes type 2, controlled: Status: Acute Plan hospital d#5 56yo F with decompensated cirrhosis + ascites presenting with abd pain/N/V and admitted for CNNA (SBP variant) # SBP - culture-negative, continue pip/silverio d#4, per ID change to levofloxacin 750 mg/d upon discharge x 7d then MWF for prophylaxis - got IV albumin yesterday to prevent HRS - will increase furosemide + spironolactone - repeat tap tomorrow for therapeutic + diagnostic purposes- send cytology # altered mental status, resolved - suspect psychogenic/conversion, consult Psychiatry # anemia - trend Hb, check FOBT # coagulopathy - give vitamin K, check INR # HTN - continue carvedilol # DM2 with hypoglycemia, now hyperglycemic - increased Lantus 25->30 units daily, continue Humalog # VTE ppx: UFH In my clinical judgment, the patient requires continued hospitalization for the following reasons: IV ABX Quality Stroke Does the patient have a stroke diagnosis?: No VTE Prior VTE?: No VTE Risk Level:: Medical - moderate - high VTE Device Contraindication: Treatment Not Indicated VTE Drug Contraindication: N/A - Med Ordered
[2022-04-29] MEDS: oxyCODONE HCl Immed Release 5 MG TABLET 10 MG PO (11:25)
[2022-04-29 11:29] VITALS: BP 121/57; PULSE 80; RESP 18; TEMP 36.6; O2SAT 96
[2022-04-29 11:40] LABS: Glucose, Whole Blood 315 mg/dL (60-115)
[2022-04-29 15:28] VITALS: BP 105/58; PULSE 79; RESP 15; TEMP 36.4; O2SAT 94
[2022-04-29 16:19] LABS: Glucose, Whole Blood 339 mg/dL (60-115)
[2022-04-29 19:03] VITALS: BP 123/60; PULSE 80; RESP 15; TEMP 37.1; O2SAT 96
[2022-04-29] MEDS: Morphine Sulfate 4 MG/ML CARTRIDGE IVPUSH (19:18)
[2022-04-29 19:43] LABS: Glucose, Whole Blood 344 mg/dL (60-115)
[2022-04-29] MEDS: carvediloL 3.125 MG TABLET PO (21:26)
[2022-04-30] VITALS: BP 99/53; PULSE 80; RESP 18; TEMP 37.1; O2SAT 97
[2022-04-30 04:00] VITALS: BP 118/56; PULSE 78; RESP 17; TEMP 36.2; O2SAT 95
[2022-04-30] MEDS: Omeprazole 20 MG CAPSULE.DR PO (05:52)
[2022-04-30] MEDS: Piperacillin Sodium/Tazobactam 3.375 GM in 0.9 % Sodium Chloride 50 ML IV ×3 (05:52→18:46)
[2022-04-30 06:47] LABS: Hemoglobin 11.3 g/dl (12.0-16.0); Mean Corpuscular HGB Conc 33.2 g/dl (31.0-35.0); Mean Corpuscular Hemoglobin 31.4 pg (27.0-33.0); Mean Corpuscular Volume 94.4 fL (80.0-98.0); Platelet Count 111 X10*3/uL (160-400); Red Cell Distribution Width 15.2 % (11.0-16.0); White Blood Count 8.7 X10*3/uL (4.8-10.8)
[2022-04-30 06:59] VITALS: BP 118/65; PULSE 78; RESP 16; TEMP 36.2; O2SAT 93
[2022-04-30 06:59] LABS: INTERNATIONAL NORM RATIO 1.5 (0.9-1.1)
[2022-04-30 07:09] LABS: Anion Gap 12 (12-20); Blood Urea Nitrogen 18 mg/dL (9-16); Calcium 7.6 mg/dL (8.4-10.2); Carbon Dioxide 28 mmol/L (22-29); Chloride 97 mmol/L (96-108); Creatinine Clr Calc Pharmacy 60.7; Estimated Glomerular Filt Rate 53; Glucose Random 314 mg/dL (60-115); Magnesium 1.7 mg/dL (1.6-2.6); Potassium 4.1 mmol/L (3.3-5.1); Sodium 133 mmol/L (135-145)
[2022-04-30 07:27] LABS: Glucose, Whole Blood 311 mg/dL (60-115)
[2022-04-30] MEDS: Insulin Lispro 100 UNIT/ML 3 ML VIAL SUBCUT ×4 (07:51→21:18)
[2022-04-30] MEDS: Insulin Glargine,Hum.rec.anlog 100 UNIT/ML 10 ML VIAL 30 UNIT SUBCUT (07:51)
[2022-04-30] MEDS: 0.9 % Sodium Chloride Flush 3 ML SYRINGE IVFLUSH ×3 (07:53→21:19)
[2022-04-30] MEDS: carvediloL 3.125 MG TABLET PO ×2 (10:06→21:18)
[2022-04-30] MEDS: Spironolactone 25 MG TABLET 100 MG PO (10:06)
[2022-04-30] MEDS: Furosemide 40 MG TABLET PO (10:06)
[2022-04-30] MEDS: Lidocaine HCl 1 % MPF 5 ML VIAL 4 ML SUBCUT (10:43)
--- NOTE | 2022-04-30 10:47 | HO.RADPN ---
RADIOLOGY Narrative Narrative: RLQ paracentesis performed using 5 fr angiocath. L clear yellow fluid removed. Specimen sent as ordered.
--- NOTE | 2022-04-30 10:55 | HO.PM.IMPN ---
Subjective Subjective Date of Service: 04/30/22 Interval History: Very uncomfortable from abdominal distension No GI bleeding Hb improved Review of Systems Review of Systems: Yes all other systems are reviewed and are negative Physical Exam Vital Signs: Vital Signs: Last Vital Signs Temp 97.2 F 04/30/22 06:59 Pulse 78 04/30/22 06:59 Resp 16 04/30/22 06:59 BP 118/65 04/30/22 06:59 Pulse Ox 93 04/30/22 06:59 O2 Del Method 04/30/22 06:59 O2 Flow Rate 6 04/28/22 13:35 BMI result Body Mass Index 30.2 Gen: in no acute distress HEENT: sclera anicteric, moist mucus membranes Neck: supple Lungs: clear to auscultation bilaterally Heart: regular rate and rhythm, no murmurs Abd: distended, tender Ext: no edema Skin: warm/well-perfused Neuro: awake and alert and oriented x3, no asterixis Psych: normal affect Objective Data Active Medications Acetaminophen (Acetaminophen 325 Mg Tablet) 650 mg PO Q6H PRN PRN Reason: Pain, Mild (Pain Scale 1-3) Carvedilol (Carvedilol 3.125 Mg Tablet) 3.125 mg PO BID [facility]; Protocol Last Admin: 04/30/22 10:06 Dose: 3.125 mg Documented By: GISSEL Dextrose (Dextrose 50 % 25 Gm/50 Ml Syringe) 25 gm IVPUSH Q15M PRN; Protocol PRN Reason: per Hypoglycemia Standing Ord. Docusate Sodium (Docusate Sodium 100 Mg Capsule) 100 mg PO DAILY PRN PRN Reason: Constipation Furosemide (Furosemide 40 Mg Tablet) 40 mg PO DAILY [facility]; Protocol Last Admin: 04/30/22 10:06 Dose: 40 mg Documented By: GISSEL Glucose (Glucose Gel 15 Gm Gel..Gram.) 15 gm PO Q15M PRN; Protocol PRN Reason: per Hypoglycemia Standing Ord. Heparin Sodium (Porcine) (Heparin Sodium,Porcine 5,000 Unit/Ml Vial) 5,000 unit SUBCUT BID [facility] Last Admin: 04/30/22 10:06 Dose: Not Given Documented By: GISSEL Non-Admin Reason: paracentesis today Piperacillin Sod/Tazobactam (Sod 3.375 gm/ Sodium Chloride) 50 mls @ 100 mls/hr IV Q6H [facility] Last Infusion: 04/30/22 06:22 Dose: 0 mls/hr Documented By: JOSTIN Insulin Glargine (Insulin Glargine,Hum.Rec.Anlog 100 Unit/Ml 10 Ml Vial) 30 unit SUBCUT DAILY [facility] Last Admin: 04/30/22 07:51 Dose: 30 unit Documented By: GISSEL Insulin Human Lispro (Insulin Lispro 100 Unit/Ml 3 Ml Vial) 0 unit SUBCUT QIDACHS [facility]; Protocol Last Admin: 04/30/22 07:51 Dose: 8 unit Documented By: GISSEL Morphine Sulfate (Morphine Sulfate 4 Mg/Ml Cartridge) 4 mg IVPUSH Q4H PRN; Protocol PRN Reason: Pain, Moderate (Pain Scale 4-6 Last Admin: 04/29/22 19:18 Dose: 4 mg Documented By: PIERCE Omeprazole (Omeprazole 20 Mg Capsule.Dr) 20 mg PO DAILY@0630 [facility] Last Admin: 04/30/22 05:52 Dose: 20 mg Documented By: JOSTIN Ondansetron HCl (Ondansetron Hcl 4 Mg/2 Ml Vial) 4 mg IVPUSH Q8H PRN PRN Reason: Nausea and Vomiting Last Admin: 04/25/22 16:29 Dose: 4 mg Documented By: ERIKA Oxycodone HCl (Oxycodone Hcl Immed Release 5 Mg Tablet) 10 mg PO Q4H PRN PRN Reason: Pain, Severe (Pain Scale 7-10) Last Admin: 04/29/22 11:25 Dose: 10 mg Documented By: PATRICIA Polyethylene Glycol (Polyethylene Glycol 3350 17 Gm Powd.Pack) 17 gm PO DAILY [facility] Last Admin: 04/30/22 07:53 Dose: Not Given Documented By: GISSEL Non-Admin Reason: Patient Refused Sodium Chloride (0.9 % Sodium Chloride Flush 3 Ml Syringe) 3 ml IVFLUSH QSHIFT [facility] Last Admin: 04/30/22 07:53 Dose: 3 ml Documented By: GISSEL Spironolactone (Spironolactone 25 Mg Tablet) 100 mg PO DAILY [facility]; Protocol Last Admin: 04/30/22 10:06 Dose: 100 mg Documented By: HO.WILLISK Labs CBC & Chem 7: 04/30/22 05:37 04/30/22 05:37 Labs: Laboratory Results - last 24 hr 04/29/22 04/29/22 04/29/22 11:28 15:45 19:29 MCV MCH MCHC RDW Plt Count MPV Absolute Nucleated RBC Nucleated RBC % (auto) PT INR Anion Gap Estim Creat Clear Calc Estimated GFR POC Glucose 315 H 339 H 344 H Random Glucose Calcium Magnesium 04/30/22 04/30/22 04/30/22 05:37 05:37 05:37 MCV 94.4 MCH 31.4 MCHC 33.2 RDW 15.2 Plt Count 111 L MPV 11.0 Absolute Nucleated RBC 0.000 Nucleated RBC % (auto) 0.0 PT 17.0 H INR 1.5 H Anion Gap 12 Estim Creat Clear Calc 60.7 Estimated GFR 53 POC Glucose Random Glucose 314 H Calcium 7.6 L Magnesium 1.7 04/30/22 07:03 MCV MCH MCHC RDW Plt Count MPV Absolute Nucleated RBC Nucleated RBC % (auto) PT INR Anion Gap Estim Creat Clear Calc Estimated GFR POC Glucose 311 H Random Glucose Calcium Magnesium Microbiology Microbiology Results: Microbiology 04/25/22 12:20 Gram Stain - Final Abdominal Fluid Routine Culture - Final No growth after 2 days Anaerobic Culture - Final NO GROWTH AFTER 5 DAYS 04/25/22 02:13 Blood Culture - Final Blood - Venous No growth after 5 days. Assessment and Plan (1) SBP (spontaneous bacterial peritonitis): Status: Acute (2) Ascites: Status: Acute (3) HTN (hypertension): Status: Acute (4) Diabetes type 2, controlled: Status: Acute Plan hospital d#6 56yo F with decompensated cirrhosis + ascites presenting with abd pain/N/V and admitted for CNNA (SBP variant) # SBP, diuretic-resistant ascites - culture-negative, continue pip/silverio d#5, per ID change to levofloxacin 750 mg/d upon discharge x 7d then MWF for prophylaxis - got IV albumin on 04/28/22 to prevent HRS - continue furosemide + spironolactone - repeat tap today for therapeutic + diagnostic purposes- send cytology # altered mental status, resolved - suspect psychogenic/conversion, consult Psychiatry # anemia - trend Hb, check FOBT # coagulopathy - due to cirrhosis; monitor INR; got vitamin K yesterday # HTN - continue carvedilol # DM2 with hypoglycemia, now hyperglycemic - increase Lantus 30>40 units daily, continue Humalog # VTE ppx: UFH In my clinical judgment, the patient requires continued hospitalization for the following reasons: IV ABX Quality Stroke Does the patient have a stroke diagnosis?: No VTE Prior VTE?: No VTE Risk Level:: Medical - moderate - high VTE Device Contraindication: Treatment Not Indicated VTE Drug Contraindication: N/A - Med Ordered
[2022-04-30 11:14] LABS: MN% 32.4 %; PMN% 67.6 %
[2022-04-30 11:16] VITALS: BP 116/63; PULSE 80; RESP 18; TEMP 36.9; O2SAT 97
[2022-04-30 11:16] LABS: RBC Peritoneal Fluid < 0.002 X10*6/uL
[2022-04-30 11:38] LABS: Glucose, Whole Blood 365 mg/dL (60-115)
[2022-04-30 11:48] LABS: BF Shift QC OK YES; Man Diluent Bkgrd OK YES
[2022-04-30 11:50] LABS: Basophils Peritoneal Fl 2 %; Lymphocyte Peritoneal Fl 22 %; Monocytes Peritoneal Fl 2 %; Neutrophils Peritoneal Fluid 74 %
--- NOTE | 2022-04-30 12:10 | MHC.CLN ---
NUTRITION CONSULT FOR SKIN INTEGRITY. REDNESS TO BUTTOCKS NOTED. DORY=18. INTAKE AT MEALS USUALLY GOOD. NO NEW NUTRITION INTERVENTIONS AT THIS TIME.
[2022-04-30] MEDS: Insulin Glargine,Hum.rec.anlog 100 UNIT/ML 10 ML VIAL 10 UNIT SUBCUT (12:30)
--- NOTE | 2022-04-30 13:07 | HO.RADPN ---
RADIOLOGY Narrative Narrative: RLA paracentesis using 5 fr catheter. 4L clear yellow fluid removed. Specimen sent.
[2022-04-30 16:06] VITALS: BP 114/63; PULSE 85; RESP 19; TEMP 36.8; O2SAT 93
--- NOTE | 2022-04-30 16:18 | PM.PSYCN ---
History of Present Illness Chief Complaint: Ascites, needs Paracentesis [facility] Medical History Cirrhosis Cirrhosis Diabetes (~01/31/21) Diabetes mellitus with hyperglycemia HTN (hypertension) UTI due to extended-spectrum beta lactamase (ESBL) producing Escherichia coli Diagnostics Vital Signs (24Hr): Vital Signs - 24 hr 04/29/22 19:03 04/30/22 00:00 04/30/22 04:00 Temperature 98.8 F 98.8 F 97.1 F Pulse Rate 80 80 78 Respiratory Rate 15 18 17 Blood Pressure 123/60 99/53 L 118/56 L Pulse Oximetry 96 97 95 Oxygen Delivery Method Room Air Room Air Room Air 04/30/22 06:59 04/30/22 11:16 04/30/22 16:06 Temperature 97.2 F 98.5 F 98.3 F Pulse Rate 78 80 85 Respiratory Rate 16 18 19 Blood Pressure 118/65 116/63 114/63 Pulse Oximetry 93 97 93 Oxygen Delivery Method Room Air Room Air Room Air BMI result Body Mass Index 30.2 Labs Results: 04/30/22 05:37 04/30/22 05:37 Labs: Laboratory Results - last 48 hr 04/28/22 04/28/22 04/28/22 18:38 20:03 22:13 WBC RBC Hgb Hct MCV MCH MCHC RDW Plt Count MPV Absolute Nucleated RBC Nucleated RBC % (auto) PT INR Sodium Potassium Chloride Carbon Dioxide Anion Gap BUN Creatinine Estim Creat Clear Calc Estimated GFR POC Glucose 264 H 261 H 312 H Random Glucose Calcium Magnesium Total Bilirubin AST ALT Alkaline Phosphatase Total Protein Albumin Peritoneal WBC Peritoneal RBC Periton Neutrophils Periton Lymphocytes Peritoneal Monocytes Peritoneal Basophils 04/29/22 04/29/22 04/29/22 05:36 05:36 05:36 WBC 8.1 RBC 2.97 L Hgb 9.6 L Hct 27.4 L MCV 92.3 MCH 32.3 MCHC 35.0 RDW 15.2 Plt Count 98 L MPV 9.6 Absolute Nucleated RBC 0.000 Nucleated RBC % (auto) 0.0 PT 19.7 H INR 1.7 H Sodium 133 L Potassium 4.1 Chloride 99 Carbon Dioxide 24 Anion Gap 14 BUN 21 H Creatinine 1.29 Estim Creat Clear Calc 50.3 Estimated GFR 42 POC Glucose Random Glucose 271 H Calcium 7.6 L Magnesium Total Bilirubin 1.9 H AST 15 ALT 11 Alkaline Phosphatase 100 D Total Protein 5.5 L Albumin 2.7 L D Peritoneal WBC Peritoneal RBC Periton Neutrophils Periton Lymphocytes Peritoneal Monocytes Peritoneal Basophils 04/29/22 04/29/22 04/29/22 07:02 11:28 15:45 WBC RBC Hgb Hct MCV MCH MCHC RDW Plt Count MPV Absolute Nucleated RBC Nucleated RBC % (auto) PT INR Sodium Potassium Chloride Carbon Dioxide Anion Gap BUN Creatinine Estim Creat Clear Calc Estimated GFR POC Glucose 264 H 315 H 339 H Random Glucose Calcium Magnesium Total Bilirubin AST ALT Alkaline Phosphatase Total Protein Albumin Peritoneal WBC Peritoneal RBC Periton Neutrophils Periton Lymphocytes Peritoneal Monocytes Peritoneal Basophils 04/29/22 04/30/22 04/30/22 19:29 05:37 05:37 WBC 8.7 RBC 3.60 L D Hgb 11.3 L Hct 34.0 L D MCV 94.4 MCH 31.4 MCHC 33.2 RDW 15.2 Plt Count 111 L MPV 11.0 Absolute Nucleated RBC 0.000 Nucleated RBC % (auto) 0.0 PT INR Sodium 133 L Potassium 4.1 Chloride 97 Carbon Dioxide 28 Anion Gap 12 BUN 18 H Creatinine 1.07 Estim Creat Clear Calc 60.7 Estimated GFR 53 POC Glucose 344 H Random Glucose 314 H Calcium 7.6 L Magnesium 1.7 Total Bilirubin AST ALT Alkaline Phosphatase Total Protein Albumin Peritoneal WBC Peritoneal RBC Periton Neutrophils Periton Lymphocytes Peritoneal Monocytes Peritoneal Basophils 04/30/22 04/30/22 04/30/22 05:37 07:03 10:40 WBC RBC Hgb Hct MCV MCH MCHC RDW Plt Count MPV Absolute Nucleated RBC Nucleated RBC % (auto) PT 17.0 H INR 1.5 H Sodium Potassium Chloride Carbon Dioxide Anion Gap BUN Creatinine Estim Creat Clear Calc Estimated GFR POC Glucose 311 H Random Glucose Calcium Magnesium Total Bilirubin AST ALT Alkaline Phosphatase Total Protein Albumin Peritoneal WBC 4.280 Peritoneal RBC < 0.002 Periton Neutrophils 74 Periton Lymphocytes 22 Peritoneal Monocytes 2 Peritoneal Basophils 2 04/30/22 11:33 WBC RBC Hgb Hct MCV MCH MCHC RDW Plt Count MPV Absolute Nucleated RBC Nucleated RBC % (auto) PT INR Sodium Potassium Chloride Carbon Dioxide Anion Gap BUN Creatinine Estim Creat Clear Calc Estimated GFR POC Glucose 365 H* Random Glucose Calcium Magnesium Total Bilirubin AST ALT Alkaline Phosphatase Total Protein Albumin Peritoneal WBC Peritoneal RBC Periton Neutrophils Periton Lymphocytes Peritoneal Monocytes Peritoneal Basophils Imaging Radiology Impressions: ITS Impressions Abdomen/Pelvis CT 04/24/22 21:38 IMPRESSION: Cirrhotic liver. Findings of portal hypertension with ascites, varices, and recanalized umbilical vein. There is a new appearance of a mixed fluid and fat attenuation structure along the posterior aspect of the midpole of the right kidney resulting in deformity of the kidney. This could be a subcapsular collection/resolving hematoma. Suggest follow-up imaging to evaluate for change/evolution. Right adnexal dermoid again noted. Fleischner guidelines were followed. Paracentesis Ultrasound 04/25/22 12:54 IMPRESSION: Ultrasound-guided paracentesis. Head CT 04/27/22 08:16 IMPRESSION: * No acute intracranial pathology compared to the prior head CT from 07/30/2020. * Mucoperiosteal thickening and secretions of sphenoid sinuses. Otherwise, the paranasal sinuses are well aerated. Abdomen Ultrasound 04/27/22 09:00 IMPRESSION: Hepatic steatosis with recanalized umbilical vein. Cholelithiasis without wall thickening. Large ascites. Complex lesion seen in the right flank is likely subcapsular complex collection compressing the kidney on recent CT abdomen exam 04/24/2022. Doppler Study Ultrasound 04/27/22 09:00 IMPRESSION: Normal hepatopedal flow seen in the portal vein and its branches. Normal antegrade flow seen in the hepatic artery and its branches. Widely patent hepatic veins with normal antegrade flow. Recanalized umbilical vein. Portal systemic confluence is not well visualized. Head CT 04/28/22 13:51 IMPRESSION: No acute intracranial pathology. Persistent right-sided sphenoid sinus disease. No significant change since prior study dated 04/27/2022. This critical result was discussed with Dr Mejia at 2:07 PM on 04/28/2022. It was ascertained that the content and urgency of the report was understood at the time of direct communication. Paracentesis Ultrasound 04/30/22 11:15 IMPRESSION: Ultrasound-guided paracentesis. Medications Medications Current Medications Acetaminophen (Acetaminophen 325 Mg Tablet) 650 mg PO Q6H PRN PRN Reason: Pain, Mild (Pain Scale 1-3) Carvedilol (Carvedilol 3.125 Mg Tablet) 3.125 mg PO BID [facility]; Protocol Last Admin: 04/30/22 10:06 Dose: 3.125 mg Dextrose (Dextrose 50 % 25 Gm/50 Ml Syringe) 25 gm IVPUSH Q15M PRN; Protocol PRN Reason: per Hypoglycemia Standing Ord. Docusate Sodium (Docusate Sodium 100 Mg Capsule) 100 mg PO DAILY PRN PRN Reason: Constipation Furosemide (Furosemide 40 Mg Tablet) 40 mg PO DAILY [facility]; Protocol Last Admin: 04/30/22 10:06 Dose: 40 mg Glucose (Glucose Gel 15 Gm Gel..Gram.) 15 gm PO Q15M PRN; Protocol PRN Reason: per Hypoglycemia Standing Ord. Heparin Sodium (Porcine) (Heparin Sodium,Porcine 5,000 Unit/Ml Vial) 5,000 unit SUBCUT BID [facility] Last Admin: 04/30/22 10:06 Dose: Not Given Piperacillin Sod/Tazobactam (Sod 3.375 gm/ Sodium Chloride) 50 mls @ 100 mls/hr IV Q6H [facility] Last Infusion: 04/30/22 13:09 Dose: Infused Insulin Glargine (Insulin Glargine,Hum.Rec.Anlog 100 Unit/Ml 10 Ml Vial) 40 unit SUBCUT DAILY [facility] Insulin Human Lispro (Insulin Lispro 100 Unit/Ml 3 Ml Vial) 0 unit SUBCUT QIDACHS [facility]; Protocol Last Admin: 04/30/22 12:30 Dose: 10 unit Morphine Sulfate (Morphine Sulfate 4 Mg/Ml Cartridge) 4 mg IVPUSH Q4H PRN; Protocol PRN Reason: Pain, Moderate (Pain Scale 4-6 Last Admin: 04/29/22 19:18 Dose: 4 mg Omeprazole (Omeprazole 20 Mg Capsule.Dr) 20 mg PO DAILY@0630 [facility] Last Admin: 04/30/22 05:52 Dose: 20 mg Ondansetron HCl (Ondansetron Hcl 4 Mg/2 Ml Vial) 4 mg IVPUSH Q8H PRN PRN Reason: Nausea and Vomiting Last Admin: 04/25/22 16:29 Dose: 4 mg Oxycodone HCl (Oxycodone Hcl Immed Release 5 Mg Tablet) 10 mg PO Q4H PRN PRN Reason: Pain, Severe (Pain Scale 7-10) Last Admin: 04/29/22 11:25 Dose: 10 mg Polyethylene Glycol (Polyethylene Glycol 3350 17 Gm Powd.Pack) 17 gm PO DAILY [facility] Last Admin: 04/30/22 07:53 Dose: Not Given Sodium Chloride (0.9 % Sodium Chloride Flush 3 Ml Syringe) 3 ml IVFLUSH QSHIFT [facility] Last Admin: 04/30/22 07:53 Dose: 3 ml Spironolactone (Spironolactone 25 Mg Tablet) 100 mg PO DAILY [facility]; Protocol Last Admin: 04/30/22 10:06 Dose: 100 mg Allergies Allergies Allergy/AdvReac Type Severity Reaction Status Date / Time No Known Allergies Allergy Verified 07/19/21 14:20 [No Known Allergies*] Assessment & Plan I spent minutes with the patient and/or on the patient floor today, greater than?50% of which was spent counseling/coordinating care.
[2022-04-30 16:19] LABS: Glucose, Whole Blood 370 mg/dL (60-115)
[2022-04-30 19:21] VITALS: BP 117/63; PULSE 89; RESP 19; TEMP 37.3; O2SAT 92
[2022-04-30 21:08] LABS: Glucose, Whole Blood 265 mg/dL (60-115)
[2022-04-30] MEDS: Heparin Sodium,Porcine 5,000 UNIT/ML VIAL 5000 UNIT SUBCUT (21:18)
[2022-05-01] VITALS (9 sets, daily range): BP systolic 90–136; BP diastolic 28–68; PULSE 76–94; RESP 16–18; TEMP 36.1–37.3; O2SAT 91–97
[2022-05-01] MEDS: Piperacillin Sodium/Tazobactam 3.375 GM in 0.9 % Sodium Chloride 50 ML IV ×5 (01:09→23:45)
[2022-05-01 01:38] LABS: Albumin Peritoneal Fluid 0.7 GM/DL
[2022-05-01] MEDS: oxyCODONE HCl Immed Release 5 MG TABLET 10 MG PO ×2 (02:14→13:30)
[2022-05-01] MEDS: Omeprazole 20 MG CAPSULE.DR PO (06:01)
[2022-05-01 06:42] LABS: Hematocrit 34.1 % (37.0-47.0); Hemoglobin 11.7 g/dl (12.0-16.0); Mean Corpuscular HGB Conc 34.3 g/dl (31.0-35.0); Mean Corpuscular Hemoglobin 31.8 pg (27.0-33.0); Mean Corpuscular Volume 92.7 fL (80.0-98.0); Mean Platelet Volume 10.5 fL (9.4-12.3); Platelet Count 120 X10*3/uL (160-400); Red Blood Count 3.68 X10*6/uL (4.20-5.50); Red Cell Distribution Width 15.4 % (11.0-16.0); White Blood Count 10.3 X10*3/uL (4.8-10.8)
[2022-05-01 07:31] LABS: Glucose, Whole Blood 317 mg/dL (60-115)
[2022-05-01 07:42] LABS: Anion Gap 13 (12-20); Blood Urea Nitrogen 17 mg/dL (9-16); Calcium 7.6 mg/dL (8.4-10.2); Carbon Dioxide 28 mmol/L (22-29); Chloride 97 mmol/L (96-108); Creatinine Clr Calc Pharmacy 61.3; Estimated Glomerular Filt Rate 53; Glucose Random 357 mg/dL (60-115); Potassium 4.1 mmol/L (3.3-5.1); Sodium 134 mmol/L (135-145)
[2022-05-01] MEDS: Heparin Sodium,Porcine 5,000 UNIT/ML VIAL 5000 UNIT SUBCUT ×2 (08:10→19:46)
[2022-05-01] MEDS: Insulin Glargine,Hum.rec.anlog 100 UNIT/ML 10 ML VIAL 50 UNIT SUBCUT (08:11)
[2022-05-01] MEDS: Furosemide 40 MG TABLET PO (08:11)
[2022-05-01] MEDS: Insulin Lispro 100 UNIT/ML 3 ML VIAL SUBCUT ×4 (08:11→19:46)
[2022-05-01] MEDS: carvediloL 3.125 MG TABLET PO ×2 (08:11→19:46)
[2022-05-01] MEDS: 0.9 % Sodium Chloride Flush 3 ML SYRINGE IVFLUSH ×3 (08:12→19:50)
[2022-05-01] MEDS: polyethylene glycoL 3350 17 GM POWD.PACK PO (08:12)
[2022-05-01] MEDS: Spironolactone 25 MG TABLET 100 MG PO (08:12)
[2022-05-01 09:45] LABS: Glucose, Whole Blood 209 mg/dL (60-115)
--- NOTE | 2022-05-01 10:43 | HO.PM.IMPN ---
Subjective Subjective Date of Service: 05/01/22 Interval History: paracentesis yesterday with removal of 5L of fluid still quite uncomfortable and not ambulating no fever/chills no hematochezia/melena Review of Systems Review of Systems: Yes all other systems are reviewed and are negative Physical Exam Vital Signs: Vital Signs: Last Vital Signs Temp 97.3 F 05/01/22 07:22 Pulse 86 05/01/22 09:56 Resp 18 05/01/22 07:22 BP 106/55 L 05/01/22 09:56 Pulse Ox 93 05/01/22 09:56 O2 Del Method 05/01/22 07:22 O2 Flow Rate 6 04/28/22 13:35 BMI result Body Mass Index 30.2 Gen: in no acute distress HEENT: sclera anicteric, moist mucus membranes Neck: supple Lungs: clear to auscultation bilaterally Heart: regular rate and rhythm, no murmurs Abd: less distended, tender Ext: no edema Skin: warm/well-perfused Neuro: awake and alert and oriented x3, no asterixis Psych: normal affect ? Objective Data Active Medications Acetaminophen (Acetaminophen 325 Mg Tablet) 650 mg PO Q6H PRN PRN Reason: Pain, Mild (Pain Scale 1-3) Carvedilol (Carvedilol 3.125 Mg Tablet) 3.125 mg PO BID [facility]; Protocol Last Admin: 05/01/22 08:11 Dose: 3.125 mg Documented By: SINDI Dextrose (Dextrose 50 % 25 Gm/50 Ml Syringe) 25 gm IVPUSH Q15M PRN; Protocol PRN Reason: per Hypoglycemia Standing Ord. Docusate Sodium (Docusate Sodium 100 Mg Capsule) 100 mg PO DAILY PRN PRN Reason: Constipation Furosemide (Furosemide 40 Mg Tablet) 40 mg PO DAILY [facility]; Protocol Last Admin: 05/01/22 08:11 Dose: 40 mg Documented By: SINDI Glucose (Glucose Gel 15 Gm Gel..Gram.) 15 gm PO Q15M PRN; Protocol PRN Reason: per Hypoglycemia Standing Ord. Heparin Sodium (Porcine) (Heparin Sodium,Porcine 5,000 Unit/Ml Vial) 5,000 unit SUBCUT BID [facility] Last Admin: 05/01/22 08:10 Dose: 5,000 unit Documented By: SINDI Piperacillin Sod/Tazobactam (Sod 3.375 gm/ Sodium Chloride) 50 mls @ 100 mls/hr IV Q6H [facility] Last Infusion: 05/01/22 06:36 Dose: 0 mls/hr Documented By: DENNIS Insulin Glargine (Insulin Glargine,Hum.Rec.Anlog 100 Unit/Ml 10 Ml Vial) 50 unit SUBCUT DAILY [facility] Last Admin: 05/01/22 08:11 Dose: 50 unit Documented By: SINDI Insulin Human Lispro (Insulin Lispro 100 Unit/Ml 3 Ml Vial) 0 unit SUBCUT QIDACHS [facility]; Protocol Last Admin: 05/01/22 08:11 Dose: 8 unit Documented By: SINDI Morphine Sulfate (Morphine Sulfate 4 Mg/Ml Cartridge) 4 mg IVPUSH Q4H PRN; Protocol PRN Reason: Pain, Moderate (Pain Scale 4-6 Last Admin: 04/29/22 19:18 Dose: 4 mg Documented By: PIERCE Omeprazole (Omeprazole 20 Mg Capsule.) 20 mg PO DAILY@0630 [facility] Last Admin: 05/01/22 06:01 Dose: 20 mg Documented By: DENNIS Ondansetron HCl (Ondansetron Hcl 4 Mg/2 Ml Vial) 4 mg IVPUSH Q8H PRN PRN Reason: Nausea and Vomiting Last Admin: 04/25/22 16:29 Dose: 4 mg Documented By: ERIKA Polyethylene Glycol (Polyethylene Glycol 3350 17 Gm Powd.Pack) 17 gm PO DAILY [facility] Last Admin: 05/01/22 08:12 Dose: 17 gm Documented By: SINDI Sodium Chloride (0.9 % Sodium Chloride Flush 3 Ml Syringe) [facility] Last Admin: 05/01/22 08:12 Dose: 3 ml Documented By: SINDI Spironolactone (Spironolactone 25 Mg Tablet) 100 mg PO DAILY [facility]; Protocol Last Admin: 05/01/22 08:12 Dose: 100 mg Documented By: SINDI Labs CBC & Chem 7: 05/01/22 06:03 05/01/22 06:03 Labs: Laboratory Results - last 24 hr 04/27/22 04/30/22 04/30/22 06:27 10:40 10:40 MCV MCH MCHC RDW Plt Count MPV Absolute Nucleated RBC Nucleated RBC % (auto) Anion Gap Estim Creat Clear Calc Estimated GFR POC Glucose 209 H Random Glucose Calcium Peritoneal WBC 4.280 Peritoneal RBC < 0.002 Periton Neutrophils 74 Periton Lymphocytes 22 Peritoneal Monocytes 2 Peritoneal Basophils 2 Peritoneal Albumin 0.7 04/30/22 04/30/22 04/30/22 11:33 16:15 19:28 MCV MCH MCHC RDW Plt Count MPV Absolute Nucleated RBC Nucleated RBC % (auto) Anion Gap Estim Creat Clear Calc Estimated GFR POC Glucose 365 H* 370 H* 265 H Random Glucose Calcium Peritoneal WBC Peritoneal RBC Periton Neutrophils Periton Lymphocytes Peritoneal Monocytes Peritoneal Basophils Peritoneal Albumin 05/01/22 05/01/22 05/01/22 06:03 06:03 07:26 MCV 92.7 MCH 31.8 MCHC 34.3 RDW 15.4 Plt Count 120 L MPV 10.5 Absolute Nucleated RBC 0.000 Nucleated RBC % (auto) 0.0 Anion Gap 13 Estim Creat Clear Calc 61.3 Estimated GFR 53 POC Glucose 317 H Random Glucose 357 H* Calcium 7.6 L Peritoneal WBC Peritoneal RBC Periton Neutrophils Periton Lymphocytes Peritoneal Monocytes Peritoneal Basophils Peritoneal Albumin Microbiology Microbiology Results: Microbiology 04/30/22 10:40 Gram Stain - Final Ascites Fluid Anaerobic Culture - Preliminary Culture in progress. 04/25/22 12:20 Gram Stain - Final Abdominal Fluid Routine Culture - Final No growth after 2 days Anaerobic Culture - Final NO GROWTH AFTER 5 DAYS Assessment and Plan (1) SBP (spontaneous bacterial peritonitis): Status: Acute (2) Ascites: Status: Acute (3) HTN (hypertension): Status: Acute (4) Diabetes type 2, controlled: Status: Acute Plan hospital d#7 56yo F with decompensated cirrhosis + ascites presenting with abd pain/N/V and admitted for CNNA (SBP variant) # SBP, diuretic-resistant ascites - culture-negative, continue pip/silverio d#6, per ID change to levofloxacin 750 mg/d upon discharge x 7d then MW for prophylaxis - got IV albumin on 04/28/22 to prevent HRS - repeat tap done yesterday and still showing 4280 WBCs with 74% PMNs (down from 03102 WBCs with 98% PMNs); cytology pending - increase furosemide + spironolactone, recheck electrolytes on 05/03 # altered mental status, resolved - suspect psychogenic/conversion, resolved # anemia - Hb stable, FOBT # coagulopathy - due to cirrhosis; monitor INR; got vitamin K on 04/29 # HTN - continue carvedilol # DM2 with hypoglycemia, now hyperglycemic - increase Lantus 40->50 units daily, increase Humalog correction dose # VTE ppx: UFH In my clinical judgment, the patient requires continued hospitalization for the following reasons: IV ABX, pain control from ascites Quality Stroke Does the patient have a stroke diagnosis?: No VTE Prior VTE?: No VTE Risk Level:: Medical - moderate - high VTE Device Contraindication: Treatment Not Indicated VTE Drug Contraindication: N/A - Med Ordered
[2022-05-01 11:44] LABS: Glucose, Whole Blood 453 mg/dL (60-115)
[2022-05-01 11:51] LABS: Alpha Fetoprotein 1.3 ng/mL
--- NOTE | 2022-05-01 13:02 | MHC.CM.PN ---
PATIENT REMAINS ON IV ABX AND IS BEING MANAGED FOR PAIN RELATED TO ASCITES. EVENTUAL PLAN IS HOME
[2022-05-01 15:32] LABS: Glucose, Whole Blood 440 mg/dL (60-115)
[2022-05-01] MEDS: Insulin Lispro 100 UNIT/ML 3 ML VIAL 12 UNIT SUBCUT (17:47)
[2022-05-01 19:30] LABS: Glucose, Whole Blood 300 mg/dL (60-115)
[2022-05-02 03:28] VITALS: BP 101/55; PULSE 90; RESP 16; TEMP 37.2; O2SAT 92
[2022-05-02] MEDS: Morphine Sulfate 4 MG/ML CARTRIDGE IVPUSH (03:54)
[2022-05-02] MEDS: Piperacillin Sodium/Tazobactam 3.375 GM in 0.9 % Sodium Chloride 50 ML IV ×4 (05:24→22:28)
[2022-05-02] MEDS: Omeprazole 20 MG CAPSULE.DR PO (05:27)
[2022-05-02 07:21] LABS: Glucose, Whole Blood 97 mg/dL (60-115)
[2022-05-02 07:56] VITALS: BP 113/61; PULSE 83; RESP 16; TEMP 36.3; O2SAT 92
[2022-05-02] MEDS: ondansetron HCL 4 MG/2 ML VIAL IVPUSH (08:08)
[2022-05-02] MEDS: 0.9 % Sodium Chloride Flush 3 ML SYRINGE IVFLUSH ×3 (08:08→22:25)
[2022-05-02] MEDS: Heparin Sodium,Porcine 5,000 UNIT/ML VIAL 5000 UNIT SUBCUT ×2 (09:30→22:24)
[2022-05-02] MEDS: oxyCODONE HCl Immed Release 5 MG TABLET 10 MG PO ×3 (09:38→22:24)
--- NOTE | 2022-05-02 09:55 | P.PNIM_ITS ---
Subjective Subjective Date of Service: 05/02/22 Interval History: severe abd pain + distension no GI bleeding Review of Systems Review of Systems: Yes all other systems are reviewed and are negative Physical Exam Vital Signs: Vital Signs: Last Vital Signs Temp 97.4 F 05/02/22 07:56 Pulse 83 05/02/22 07:56 Resp 16 05/02/22 07:56 BP 113/61 05/02/22 07:56 Pulse Ox 92 05/02/22 07:56 O2 Del Method 05/02/22 07:56 O2 Flow Rate 6 04/28/22 13:35 BMI result Body Mass Index 30.2 Gen:uncomfortable, in pain, chronically ill-apearing HEENT: sclera anicteric, moist mucus membranes Neck: supple Lungs: clear to auscultation bilaterally Heart: regular rate and rhythm, no murmurs Abd: distended with epigastric tenderness + fluid wave Ext: no edema Skin: warm/well-perfused Neuro: awake and alert and oriented x3, no asterixis Psych: normal affect Objective Data Active Medications Acetaminophen (Acetaminophen 325 Mg Tablet) 650 mg PO Q6H PRN PRN Reason: Pain, Mild (Pain Scale 1-3) Carvedilol (Carvedilol 3.125 Mg Tablet) 3.125 mg PO BID [facility]; Protocol Last Admin: 05/01/22 19:46 Dose: 3.125 mg Documented By: GENEVIEVE Dextrose (Dextrose 50 % 25 Gm/50 Ml Syringe) 25 gm IVPUSH Q15M PRN; Protocol PRN Reason: per Hypoglycemia Standing Ord. Docusate Sodium (Docusate Sodium 100 Mg Capsule) 100 mg PO DAILY PRN PRN Reason: Constipation Furosemide (Furosemide 40 Mg Tablet) 80 mg PO DAILY [facility]; Protocol Glucose (Glucose Gel 15 Gm Gel..Gram.) 15 gm PO Q15M PRN; Protocol PRN Reason: per Hypoglycemia Standing Ord. Heparin Sodium (Porcine) (Heparin Sodium,Porcine 5,000 Unit/Ml Vial) 5,000 unit SUBCUT BID [facility] Last Admin: 05/02/22 09:30 Dose: 5,000 unit Documented By: JESSIKA Piperacillin Sod/Tazobactam (Sod 3.375 gm/ Sodium Chloride) 50 mls @ 100 mls/hr IV Q6H [facility] Last Infusion: 05/02/22 06:02 Dose: 0 mls/hr Documented By: GENEVIEVE Insulin Glargine (Insulin Glargine,Hum.Rec.Anlog 100 Unit/Ml 10 Ml Vial) 50 unit SUBCUT DAILY [facility] Last Admin: 05/01/22 08:11 Dose: 50 unit Documented By: SINDI Insulin Human Lispro (Insulin Lispro 100 Unit/Ml 3 Ml Vial) 0 unit SUBCUT QIDACHS [facility]; Protocol Last Admin: 05/02/22 07:25 Dose: Not Given Documented By: JESSIKA Non-Admin Reason: No Insulin Coverage Morphine Sulfate (Morphine Sulfate 4 Mg/Ml Cartridge) 4 mg IVPUSH Q4H PRN; Protocol PRN Reason: Pain, Moderate (Pain Scale 4-6 Last Admin: 05/02/22 03:54 Dose: 4 mg Documented By: GENEVIEVE Omeprazole (Omeprazole 20 Mg Capsule.Dr) 20 mg PO DAILY@0630 [facility] Last Admin: 05/02/22 05:27 Dose: 20 mg Documented By: GENEVIEVE Ondansetron HCl (Ondansetron Hcl 4 Mg/2 Ml Vial) 4 mg IVPUSH Q8H PRN PRN Reason: Nausea and Vomiting Last Admin: 05/02/22 08:08 Dose: 4 mg Documented By: JESSIKA Oxycodone HCl (Oxycodone Hcl Immed Release 5 Mg Tablet) 10 mg PO Q4H PRN PRN Reason: severe pain Last Admin: 05/02/22 09:38 Dose: 10 mg Documented By: JESSIKA Polyethylene Glycol (Polyethylene Glycol 3350 17 Gm Powd.Pack) 17 gm PO DAILY [facility] Last Admin: 05/02/22 09:30 Dose: Not Given Documented By: JESSIKA Non-Admin Reason: Patient Refused Sodium Chloride (0.9 % Sodium Chloride Flush 3 Ml Syringe) [facility] Last Admin: 05/02/22 08:08 Dose: 3 ml Documented By: JESSIKA Spironolactone (Spironolactone 25 Mg Tablet) 200 mg PO DAILY [facility]; Protocol Labs CBC & Chem 7: 05/01/22 06:03 05/01/22 06:03 Labs: Laboratory Results - last 24 hr 04/27/22 05/01/22 05/01/22 05:15 11:35 15:27 POC Glucose 453 H* 440 H* Alpha Fetoprotein 1.3 05/01/22 05/02/22 19:24 07:07 POC Glucose 300 H 97 Alpha Fetoprotein Microbiology Microbiology Results: Microbiology 04/26/22 13:55 Blood Culture - Final Blood - Venous No growth after 5 days. 04/26/22 13:55 Blood Culture - Final Blood - Venous No growth after 5 days. 04/30/22 10:40 Gram Stain - Final Ascites Fluid Anaerobic Culture - Preliminary Culture in progress. Body Fluid Culture - Preliminary Culture in progress. Assessment and Plan (1) SBP (spontaneous bacterial peritonitis): Status: Acute (2) Ascites: Status: Acute (3) HTN (hypertension): Status: Acute (4) Diabetes type 2, controlled: Status: Acute Plan hospital d#8 56yo F with decompensated cirrhosis + ascites presenting with abd pain/N/V and found to have CNNA (SBP variant) # CNNA/SBP, diuretic-resistant ascites - culture-negative on initial tap 04/25/22, continue pip/silverio d#7, per ID give levofloxacin 750 mg/d upon discharge x 7d then MWF for prophylaxis; follow ascites culture from tap on 04/30/22 - got IV albumin on 04/28/22 to prevent HRS - repeat tap done on 04/30/22 still showing 4280 WBCs with 74% PMNs (down from 33575 WBCs with 98% PMNs on prior tap); cytology pending;' AFP level normal at 1.3 - increase furosemide + spironolactone today, recheck electrolytes tomorrow; may require repeat paracentesis for comfort # altered mental status, resolved - 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 seeing ex-part ner; resolved # anemia - Hb stable, FOBT ordered # coagulopathy - due to cirrhosis; got vitamin K on 04/29; INR now 1.5 # HTN - continue carvedilol # DM2 with hypoglycemia, then hyperglycemic - got extra Humalog yesterday, hyperclyemia resolved, continue Lantus 50 units plus Humalog correction scale # VTE ppx: UFH In my clinical judgment, the patient requires continued hospitalization for the following reasons: IV ABX, resistant ascites causing intractable pain Quality Stroke Does the patient have a stroke diagnosis?: No VTE Prior VTE?: No VTE Risk Level:: Medical - moderate - high VTE Device Contraindication: Treatment Not Indicated VTE Drug Contraindication: N/A - Med Ordered
[2022-05-02 11:13] LABS: Glucose, Whole Blood 287 mg/dL (60-115)
[2022-05-02 11:24] VITALS: BP 119/59; PULSE 87; RESP 18; TEMP 36.6; O2SAT 94
[2022-05-02] MEDS: Insulin Glargine,Hum.rec.anlog 100 UNIT/ML 10 ML VIAL 50 UNIT SUBCUT (11:53)
[2022-05-02] MEDS: Insulin Lispro 100 UNIT/ML 3 ML VIAL SUBCUT ×3 (11:53→22:24)
[2022-05-02] MEDS: carvediloL 3.125 MG TABLET PO ×2 (11:54→22:24)
[2022-05-02] MEDS: Spironolactone 25 MG TABLET 200 MG PO (11:54)
[2022-05-02] MEDS: Furosemide 40 MG TABLET 80 MG PO (11:54)
[2022-05-02 15:12] VITALS: BP 106/62; PULSE 93; RESP 18; TEMP 37.1; O2SAT 90
[2022-05-02 15:27] LABS: Glucose, Whole Blood 279 mg/dL (60-115)
[2022-05-02 19:35] VITALS: BP 110/66; PULSE 89; RESP 17; TEMP 36.8; O2SAT 99
[2022-05-02 20:18] LABS: Glucose, Whole Blood 329 mg/dL (60-115)
[2022-05-03 04:00] VITALS: BP 98/60; PULSE 87; RESP 17; TEMP 36.4; O2SAT 95
[2022-05-03] MEDS: Piperacillin Sodium/Tazobactam 3.375 GM in 0.9 % Sodium Chloride 50 ML IV ×4 (05:56→23:27)
[2022-05-03] MEDS: Omeprazole 20 MG CAPSULE.DR PO (05:56)
[2022-05-03 06:45] LABS: Anion Gap 14 (12-20); Blood Urea Nitrogen 21 mg/dL (9-16); Calcium 7.6 mg/dL (8.4-10.2); Carbon Dioxide 28 mmol/L (22-29); Chloride 95 mmol/L (96-108); Creatinine Clr Calc Pharmacy 49.2; Estimated Glomerular Filt Rate 41; Glucose Random 287 mg/dL (60-115); Magnesium 1.6 mg/dL (1.6-2.6); Sodium 133 mmol/L (135-145)
[2022-05-03 07:48] VITALS: BP 103/59; PULSE 86; RESP 18; TEMP 36.6; O2SAT 90
[2022-05-03 07:55] LABS: Glucose, Whole Blood 288 mg/dL (60-115)
[2022-05-03] MEDS: Insulin Lispro 100 UNIT/ML 3 ML VIAL SUBCUT ×4 (08:09→20:16)
[2022-05-03] MEDS: oxyCODONE HCl Immed Release 5 MG TABLET 10 MG PO (08:10)
[2022-05-03] MEDS: Spironolactone 25 MG TABLET 200 MG PO (08:30)
[2022-05-03] MEDS: 0.9 % Sodium Chloride Flush 3 ML SYRINGE IVFLUSH ×3 (08:30→20:17)
[2022-05-03] MEDS: Heparin Sodium,Porcine 5,000 UNIT/ML VIAL 5000 UNIT SUBCUT ×2 (08:30→20:16)
[2022-05-03] MEDS: Insulin Glargine,Hum.rec.anlog 100 UNIT/ML 10 ML VIAL 50 UNIT SUBCUT (08:30)
[2022-05-03] MEDS: Furosemide 40 MG TABLET 80 MG PO (08:31)
[2022-05-03] MEDS: carvediloL 3.125 MG TABLET PO ×2 (08:31→20:16)
[2022-05-03 11:40] LABS: Glucose, Whole Blood 313 mg/dL (60-115)
[2022-05-03 11:42] VITALS: BP 102/70; PULSE 88; RESP 18; TEMP 36.4; O2SAT 91
--- NOTE | 2022-05-03 13:55 | HO.PM.IMPN ---
Subjective Subjective Date of Service: 05/03/22 Interval History: Still with diffuse abdominal pain Review of Systems denies chest pain Denies shortness of breath Denies nausea vomiting diarrhea Admits to abdominal pain Physical Exam Vital Signs: Vital Signs: Last Vital Signs Temp 97.5 F 05/03/22 11:42 Pulse 88 05/03/22 11:42 Resp 18 05/03/22 11:42 BP 102/70 05/03/22 11:42 Pulse Ox 91 L 05/03/22 11:42 O2 Del Method 05/03/22 11:42 O2 Flow Rate 6 04/28/22 13:35 BMI result Body Mass Index 30.2 Const: Other: resting comfortably in bed Resp: Other: clear to auscultation bilaterally no rales rhonchi or wheezes Cardio: Other: no S4; positive S1-S2; no S3 murmurs of gallops GI: Other: tense ascites prior to tap; softer with positive bowel Extrem: Other: no edema bilaterally Objective Data Active Medications Acetaminophen (Acetaminophen 325 Mg Tablet) 650 mg PO Q6H PRN PRN Reason: Pain, Mild (Pain Scale 1-3) Carvedilol (Carvedilol 3.125 Mg Tablet) 3.125 mg PO BID [facility]; Protocol Last Admin: 05/03/22 08:31 Dose: 3.125 mg Documented By: VALERIE Dextrose (Dextrose 50 % 25 Gm/50 Ml Syringe) 25 gm IVPUSH Q15M PRN; Protocol PRN Reason: per Hypoglycemia Standing Ord. Docusate Sodium (Docusate Sodium 100 Mg Capsule) 100 mg PO DAILY PRN PRN Reason: Constipation Furosemide (Furosemide 40 Mg Tablet) 80 mg PO DAILY [facility]; Protocol Last Admin: 05/03/22 08:31 Dose: 80 mg Documented By: VALERIE Glucose (Glucose Gel 15 Gm Gel..Gram.) 15 gm PO Q15M PRN; Protocol PRN Reason: per Hypoglycemia Standing Ord. Heparin Sodium (Porcine) (Heparin Sodium,Porcine 5,000 Unit/Ml Vial) 5,000 unit SUBCUT BID [facility] Last Admin: 05/03/22 08:30 Dose: 5,000 unit Documented By: VALERIE Piperacillin Sod/Tazobactam (Sod 3.375 gm/ Sodium Chloride) 50 mls @ 100 mls/hr IV Q6H [facility] Last Infusion: 05/03/22 12:34 Dose: 0 mls/hr Documented By: VALERIE Insulin Glargine (Insulin Glargine,Hum.Rec.Anlog 100 Unit/Ml 10 Ml Vial) 50 unit SUBCUT DAILY [facility] Last Admin: 05/03/22 08:30 Dose: 50 unit Documented By: VALERIE Insulin Human Lispro (Insulin Lispro 100 Unit/Ml 3 Ml Vial) 0 unit SUBCUT QIDACHS [facility]; Protocol Last Admin: 05/03/22 11:56 Dose: 14 unit Documented By: VALERIE Morphine Sulfate (Morphine Sulfate 4 Mg/Ml Cartridge) 4 mg IVPUSH Q4H PRN; Protocol PRN Reason: Pain, Moderate (Pain Scale 4-6 Last Admin: 05/02/22 03:54 Dose: 4 mg Documented By: GENEVIEVE Omeprazole (Omeprazole 20 Mg Capsule.Dr) 20 mg PO DAILY@0630 [facility] Last Admin: 05/03/22 05:56 Dose: 20 mg Documented By: DENNIS Ondansetron HCl (Ondansetron Hcl 4 Mg/2 Ml Vial) 4 mg IVPUSH Q8H PRN PRN Reason: Nausea and Vomiting Last Admin: 05/02/22 08:08 Dose: 4 mg Documented By: JESSIKA Oxycodone HCl (Oxycodone Hcl Immed Release 5 Mg Tablet) 10 mg PO Q4H PRN PRN Reason: severe pain Last Admin: 05/03/22 08:10 Dose: 10 mg Documented By: RAFAEL Polyethylene Glycol (Polyethylene Glycol 3350 17 Gm Powd.Pack) 17 gm PO DAILY [facility] Last Admin: 05/03/22 08:44 Dose: Not Given Documented By: VALERIE Non-Admin Reason: Patient Refused Sodium Chloride (0.9 % Sodium Chloride Flush 3 Ml Syringe) [facility] Last Admin: 05/03/22 08:30 Dose: 3 ml Documented By: VALERIE Spironolactone (Spironolactone 25 Mg Tablet) 200 mg PO DAILY [facility]; Protocol Last Admin: 05/03/22 08:30 Dose: 200 mg Documented By: VALERIE Labs CBC & Chem 7: 05/01/22 06:03 05/03/22 05:35 Labs: Laboratory Results - last 24 hr 05/02/22 05/02/22 05/03/22 15:14 20:11 05:35 Anion Gap 14 Estim Creat Clear Calc 49.2 Estimated GFR 41 POC Glucose 279 H 329 H Random Glucose 287 H Calcium 7.6 L Magnesium 1.6 05/03/22 05/03/22 07:47 11:08 Anion Gap Estim Creat Clear Calc Estimated GFR POC Glucose 288 H 313 H Random Glucose Calcium Magnesium Microbiology Microbiology Results: Microbiology 04/30/22 10:40 Gram Stain - Final Ascites Fluid Anaerobic Culture - Preliminary Culture in progress. Body Fluid Culture - Final Escherichia coli Assessment and Plan (1) SBP (spontaneous bacterial peritonitis): Status: Acute (2) Ascites: Status: Acute (3) Cirrhosis: Status: Acute (4) Diabetes type 2, controlled: Status: Acute Plan 56yo F with decompensated cirrhosis + ascites presenting with abd pain/N/V and found to have CNNA (SBP variant) 1.CNNA/SBP, diuretic-resistant ascites - culture-negative on initial tap 04/25/22, continue pip/silverio (8) per ID give levofloxacin 750 mg/d upon discharge x 7d then MWF for - increase furosemide + spironolactone today - recheck electrolytes tomorrow 2. anemia - Hb stable, FOBT ordered 3.Coagulopathy -follow INRs -due to cirrhosis; 4. HTN -acceptable control on current therapies - continue carvedilol 5.DM2 -acceptable control on current therapies -continue lispro sliding scale VTE ppx: UFH In my clinical judgment, the patient requires continued hospitalization for the following reasons: IV ABX, resistant ascites causing intractable pain Quality Stroke Does the patient have a stroke diagnosis?: No VTE Prior VTE?: No VTE Risk Level:: Medical - moderate - high VTE Device Contraindication: Treatment Not Indicated VTE Drug Contraindication: N/A - Med Ordered
--- NOTE | 2022-05-03 15:33 | MHC.CM.PN ---
PATIENT GIVES PERMISSION FOR THIS [employer] TO SPEAK WITH DAUGHTER MARILEE (IN ROOM) MARILEE UPDATED WITH CURRENT CARE PLAN MARILEE WAS HOPING THAT PATIENT COULD ATTEND MOTHER'S ON 04/2022 @ 1800 BUT IS ALSO AWARE THAT THIS MAY NOT BE POSSIBLE DAUGHTER'S CONTACT NUMBER IS [phone]
[2022-05-03 16:00] VITALS: BP 123/62; PULSE 86; RESP 17; TEMP 36.9; O2SAT 93
[2022-05-03 16:49] LABS: Glucose, Whole Blood 303 mg/dL (60-115)
[2022-05-03] MEDS: Morphine Sulfate 4 MG/ML CARTRIDGE IVPUSH (17:11)
[2022-05-03 19:24] VITALS: BP 108/66; PULSE 88; RESP 16; TEMP 36.4; O2SAT 92
[2022-05-03 20:01] LABS: Glucose, Whole Blood 199 mg/dL (60-115)
[2022-05-03 23:37] VITALS: BP 122/65; PULSE 74; RESP 17; TEMP 36.9; O2SAT 98
[2022-05-04 03:45] VITALS: BP 152/68; PULSE 70; RESP 18; TEMP 36.7; O2SAT 97
[2022-05-04] MEDS: Piperacillin Sodium/Tazobactam 3.375 GM in 0.9 % Sodium Chloride 50 ML IV ×3 (06:11→17:51)
[2022-05-04] MEDS: Omeprazole 20 MG CAPSULE.DR PO (06:11)
[2022-05-04 06:20] LABS: MANUAL DIFF FLAG NO
[2022-05-04 06:24] LABS: Basophils Absolute Auto 0.1 X10*3/uL (0.0-0.2); Basophils Percent Auto 0.5 % (0-2); Hematocrit 34.8 % (37.0-47.0); Hemoglobin 11.7 g/dl (12.0-16.0); Imm Gran Abs Auto 0.23 X10*3/uL (0.00-0.03); Imm Gran Pct Auto 2.1 % (0.0-0.4); Lymphocytes Absolute Auto 1.1 X10*3/uL (1.2-4.9); Lymphocytes Percent Auto 9.7 % (20-40); Mean Corpuscular HGB Conc 33.6 g/dl (31.0-35.0); Mean Corpuscular Hemoglobin 31.7 pg (27.0-33.0); Mean Corpuscular Volume 94.3 fL (80.0-98.0); Mean Platelet Volume 10.2 fL (9.4-12.3); Monocytes Percent Auto 8.9 % (2-11); Neutrophils Absolute Auto 8.8 x10*3/uL (2.0-8.3); Neutrophils Percent Auto 78.8 % (45-73); Platelet Count 144 X10*3/uL (160-400); Red Blood Count 3.69 X10*6/uL (4.20-5.50); Red Cell Distribution Width 15.9 % (11.0-16.0); White Blood Count 11.2 X10*3/uL (4.8-10.8)
[2022-05-04 07:01] LABS: Alanine Aminotransferase 10 U/L (0-31); Albumin Level 2.1 g/dL (3.5-5.0); Alkaline Phosphatase 101 U/L (39-117); Anion Gap 14 (12-20); Aspartate Amino Transferase 18 U/L (5-31); Bilirubin Total 2.5 mg/dL (0.0-1.0); Blood Urea Nitrogen 18 mg/dL (9-16); Calcium 7.9 mg/dL (8.4-10.2); Carbon Dioxide 30 mmol/L (22-29); Chloride 96 mmol/L (96-108); Creatinine Clr Calc Pharmacy 51.9; Estimated Glomerular Filt Rate 44; Glucose Fasting 93 mg/dL (60-99); Potassium 3.7 mmol/L (3.3-5.1); Sodium 136 mmol/L (135-145); Total Protein 6.2 g/dL (6.5-8.0)
[2022-05-04 07:46] LABS: Glucose, Whole Blood 100 mg/dL (60-115)
[2022-05-04 08:00] VITALS: BP 112/58; PULSE 93; RESP 17; TEMP 37.3; O2SAT 93
[2022-05-04] MEDS: Furosemide 40 MG TABLET 80 MG PO (10:10)
[2022-05-04] MEDS: carvediloL 3.125 MG TABLET PO ×2 (10:10→20:24)
[2022-05-04] MEDS: 0.9 % Sodium Chloride Flush 3 ML SYRINGE IVFLUSH ×3 (10:10→20:26)
[2022-05-04] MEDS: Heparin Sodium,Porcine 5,000 UNIT/ML VIAL 5000 UNIT SUBCUT ×2 (10:11→20:23)
[2022-05-04] MEDS: Spironolactone 25 MG TABLET 200 MG PO (10:11)
[2022-05-04 11:10] LABS: Glucose, Whole Blood 271 mg/dL (60-115)
[2022-05-04 11:36] VITALS: BP 107/67; PULSE 82; RESP 15; TEMP 37.4; O2SAT 92
[2022-05-04] MEDS: oxyCODONE HCl Immed Release 5 MG TABLET 10 MG PO ×2 (12:04→21:16)
--- NOTE | 2022-05-04 12:35 | MHC.CM.PN ---
PER MD ROUNDS, PT NOT YET MEDICALLY CLEARED TO DC DC PLAN REMAINS HOME WITH RESUMPTION OF SERVICES FAMILY TO TRANSPORT
--- NOTE | 2022-05-04 13:05 | P.PNIM_ITS ---
Subjective Subjective Date of Service: 05/04/22 Interval History: Still with diffuse abdominal pain. No fevers overnight Review of Systems denies chest pain Denies shortness of breath Denies nausea vomiting diarrhea Admits to abdominal pain Physical Exam Vital Signs: Vital Signs: Last Vital Signs Temp 99.3 F 05/04/22 11:36 Pulse 82 05/04/22 11:36 Resp 15 05/04/22 11:36 BP 107/67 05/04/22 11:36 Pulse Ox 92 05/04/22 11:36 O2 Del Method 05/04/22 11:36 O2 Flow Rate 6 04/28/22 13:35 BMI result Body Mass Index 30.2 Const: Other: resting comfortably in bed Resp: Other: clear to auscultation bilaterally no rales rhonchi or wheezes Cardio: Other: no S4; positive S1-S2; no S3 murmurs of gallops GI: Other: tense ascites prior to tap; softer with positive bowel Extrem: Other: no edema bilaterally Objective Data Active Medications Acetaminophen (Acetaminophen 325 Mg Tablet) 650 mg PO Q6H PRN PRN Reason: Pain, Mild (Pain Scale 1-3) Carvedilol (Carvedilol 3.125 Mg Tablet) 3.125 mg PO BID [facility]; Protocol Last Admin: 05/04/22 10:10 Dose: 3.125 mg Documented By: SINDI Dextrose (Dextrose 50 % 25 Gm/50 Ml Syringe) 25 gm IVPUSH Q15M PRN; Protocol PRN Reason: per Hypoglycemia Standing Ord. Docusate Sodium (Docusate Sodium 100 Mg Capsule) 100 mg PO DAILY PRN PRN Reason: Constipation Furosemide (Furosemide 40 Mg Tablet) 80 mg PO DAILY [facility]; Protocol Last Admin: 05/04/22 10:10 Dose: 80 mg Documented By: SINDI Glucose (Glucose Gel 15 Gm Gel..Gram.) 15 gm PO Q15M PRN; Protocol PRN Reason: per Hypoglycemia Standing Ord. Heparin Sodium (Porcine) (Heparin Sodium,Porcine 5,000 Unit/Ml Vial) 5,000 unit SUBCUT BID [facility] Last Admin: 05/04/22 10:11 Dose: 5,000 unit Documented By: SIDNI Piperacillin Sod/Tazobactam (Sod 3.375 gm/ Sodium Chloride) 50 mls @ 100 mls/hr IV Q6H [facility] Last Infusion: 05/04/22 12:38 Dose: 0 mls/hr Documented By: SINDI Insulin Glargine (Insulin Glargine,Hum.Rec.Anlog 100 Unit/Ml 10 Ml Vial) 50 unit SUBCUT DAILY [facility] Last Admin: 05/04/22 07:56 Dose: Not Given Documented By: SINDI Non-Admin Reason: patient not eating breakfast Insulin Human Lispro (Insulin Lispro 100 Unit/Ml 3 Ml Vial) 0 unit SUBCUT QIDACHS [facility]; Protocol Last Admin: 05/04/22 11:23 Dose: Not Given Documented By: SINDI Non-Admin Reason: Physician Held Med Omeprazole (Omeprazole 20 Mg Capsule.Dr) 20 mg PO DAILY@0630 [facility] Last Admin: 05/04/22 06:11 Dose: 20 mg Documented By: DENNIS Ondansetron HCl (Ondansetron Hcl 4 Mg/2 Ml Vial) 4 mg IVPUSH Q8H PRN PRN Reason: Nausea and Vomiting Last Admin: 05/02/22 08:08 Dose: 4 mg Documented By: JESSIKA Oxycodone HCl (Oxycodone Hcl Immed Release 5 Mg Tablet) 10 mg PO Q4H PRN PRN Reason: severe pain Last Admin: 05/04/22 12:04 Dose: 10 mg Documented By: SINDI Polyethylene Glycol (Polyethylene Glycol 3350 17 Gm Powd.Pack) 17 gm PO DAILY [facility] Last Admin: 05/04/22 10:12 Dose: Not Given Documented By: SINDI Non-Admin Reason: Patient Refused Sodium Chloride (0.9 % Sodium Chloride Flush 3 Ml Syringe) 3 ml IVFLUSH QSHIFT [facility] Last Admin: 05/04/22 10:10 Dose: 3 ml Documented By: SINDI Spironolactone (Spironolactone 25 Mg Tablet) 200 mg PO DAILY [facility]; Protocol Last Admin: 05/04/22 10:11 Dose: 200 mg Documented By: ISNDI Labs CBC & Chem 7: 05/04/22 05:30 05/04/22 05:30 Labs: Laboratory Results - last 24 hr 05/03/22 05/03/22 05/04/22 16:44 19:44 05:30 MCV 94.3 MCH 31.7 MCHC 33.6 RDW 15.9 Plt Count 144 L MPV 10.2 Immature Gran % (Auto) 2.1 H Neut % (Auto) 78.8 H Lymph % (Auto) 9.7 L [place] % (Auto) 8.9 Eos % (Auto) 0.0 Baso % (Auto) 0.5 Lymph # (Auto) 1.1 L [place] # (Auto) 1.0 Eos # (Auto) 0.0 Baso # (Auto) 0.1 Abs Immat Gran (auto) 0.23 H Absolute Neuts (auto) 8.8 H Absolute Nucleated RBC 0.000 Nucleated RBC % (auto) 0.0 Anion Gap Estim Creat Clear Calc Estimated GFR POC Glucose 303 H 199 H Fasting Glucose Calcium Total Bilirubin AST ALT Alkaline Phosphatase Total Protein Albumin 05/04/22 05/04/22 05/04/22 05:30 07:41 11:06 MCV MCH MCHC RDW Plt Count MPV Immature Gran % (Auto) Neut % (Auto) Lymph % (Auto) [place] % (Auto) Eos % (Auto) Baso % (Auto) Lymph # (Auto) [place] # (Auto) Eos # (Auto) Baso # (Auto) Abs Immat Gran (auto) Absolute Neuts (auto) Absolute Nucleated RBC Nucleated RBC % (auto) Anion Gap 14 Estim Creat Clear Calc 51.9 Estimated GFR 44 POC Glucose 100 271 H Fasting Glucose 93 Calcium 7.9 L Total Bilirubin 2.5 H AST 18 ALT 10 Alkaline Phosphatase 101 Total Protein 6.2 L Albumin 2.1 L D Microbiology Microbiology Results: Microbiology 04/30/22 10:40 Gram Stain - Final Ascites Fluid Anaerobic Culture - Final Body Fluid Culture - Final Escherichia coli Assessment and Plan (1) SBP (spontaneous bacterial peritonitis): Status: Acute (2) Ascites: Status: Acute (3) Cirrhosis: Status: Acute (4) Diabetes type 2, controlled: Status: Acute Plan 56yo F with decompensated cirrhosis + ascites presenting with abd pain/N/V and found to have CNNA (SBP variant) 1.CNNA/SBP, diuretic-resistant ascites - culture-negative on initial tap 04/25/22, continue pip/silverio (8) per ID give levofloxacin 750 mg/d upon discharge x 7d then MWF for - furosemide + spironolactone as ordered -attempted ultrasound paracentesis today.... No significant ascites - recheck electrolytes tomorrow 2. anemia - Hb stable, FOBT ordered 3.Coagulopathy -follow INRs -due to cirrhosis; 4. HTN -acceptable control on current therapies - continue carvedilol 5.DM2 -acceptable control on current therapies -continue lispro sliding scale VTE ppx: UFH In my clinical judgment, the patient requires continued hospitalization for the following reasons: IV ABX, resistant ascites causing intractable pain Quality Stroke Does the patient have a stroke diagnosis?: No VTE Prior VTE?: No VTE Risk Level:: Medical - moderate - high VTE Device Contraindication: Treatment Not Indicated VTE Drug Contraindication: N/A - Med Ordered
[2022-05-04 15:45] VITALS: BP 100/57; PULSE 85; RESP 17; TEMP 36.8; O2SAT 92
[2022-05-04 15:54] LABS: Glucose, Whole Blood 448 mg/dL (60-115)
[2022-05-04] MEDS: Insulin Lispro 100 UNIT/ML 3 ML VIAL SUBCUT ×2 (17:03→20:24)
[2022-05-04 19:56] VITALS: BP 100/61; PULSE 87; RESP 16; TEMP 36.9; O2SAT 94
[2022-05-04 20:09] LABS: Glucose, Whole Blood 408 mg/dL (60-115)
[2022-05-05] VITALS: BP 91/54; PULSE 82; RESP 17; TEMP 36.5; O2SAT 93
[2022-05-05] MEDS: Piperacillin Sodium/Tazobactam 3.375 GM in 0.9 % Sodium Chloride 50 ML IV ×3 (00:32→12:24)
[2022-05-05 04:00] VITALS: BP 100/56; PULSE 82; RESP 17; TEMP 36.4; O2SAT 93
[2022-05-05] MEDS: Omeprazole 20 MG CAPSULE.DR PO (05:32)
[2022-05-05 05:56] LABS: MANUAL DIFF FLAG NO
[2022-05-05 05:59] LABS: Basophils Percent Auto 0.4 % (0-2); Hematocrit 33.8 % (37.0-47.0); Hemoglobin 11.3 g/dl (12.0-16.0); Imm Gran Abs Auto 0.12 X10*3/uL (0.00-0.03); Imm Gran Pct Auto 1.2 % (0.0-0.4); Mean Corpuscular HGB Conc 33.4 g/dl (31.0-35.0); Mean Corpuscular Hemoglobin 32.3 pg (27.0-33.0); Mean Corpuscular Volume 96.6 fL (80.0-98.0); Mean Platelet Volume 9.4 fL (9.4-12.3); Monocytes Absolute Auto 0.9 X10*3/uL (0.1-1.2); Monocytes Percent Auto 8.7 % (2-11); Neutrophils Absolute Auto 7.8 x10*3/uL (2.0-8.3); Neutrophils Percent Auto 79.7 % (45-73); Platelet Count 137 X10*3/uL (160-400); Red Cell Distribution Width 16.3 % (11.0-16.0); White Blood Count 9.8 X10*3/uL (4.8-10.8)
[2022-05-05 06:27] LABS: Alanine Aminotransferase 10 U/L (0-31); Alkaline Phosphatase 105 U/L (39-117); Anion Gap 13 (12-20); Aspartate Amino Transferase 15 U/L (5-31); Bilirubin Total 2.4 mg/dL (0.0-1.0); Blood Urea Nitrogen 19 mg/dL (9-16); Calcium 7.5 mg/dL (8.4-10.2); Carbon Dioxide 32 mmol/L (22-29); Chloride 92 mmol/L (96-108); Creatinine Clr Calc Pharmacy 46.1; Estimated Glomerular Filt Rate 38; Glucose Fasting 391 mg/dL (60-99); Potassium 3.9 mmol/L (3.3-5.1); Sodium 133 mmol/L (135-145)
[2022-05-05 07:50] VITALS: BP 90/54; PULSE 78; RESP 18; TEMP 36.1; O2SAT 93
[2022-05-05 07:55] LABS: Glucose, Whole Blood 348 mg/dL (60-115)
[2022-05-05] MEDS: Heparin Sodium,Porcine 5,000 UNIT/ML VIAL 5000 UNIT SUBCUT (09:21)
[2022-05-05] MEDS: Insulin Glargine,Hum.rec.anlog 100 UNIT/ML 10 ML VIAL 50 UNIT SUBCUT (09:22)
[2022-05-05] MEDS: 0.9 % Sodium Chloride Flush 3 ML SYRINGE IVFLUSH (09:22)
[2022-05-05] MEDS: Insulin Lispro 100 UNIT/ML 3 ML VIAL SUBCUT ×2 (09:22→12:23)
[2022-05-05] MEDS: Docusate Sodium 100 MG CAPSULE PO (09:23)
[2022-05-05] MEDS: Spironolactone 25 MG TABLET 200 MG PO (09:23)
--- NOTE | 2022-05-05 11:12 | PM.DS ---
DS: Providers Provider Date of Service: 05/05/22 Date of admission: 04/25/22 08:56 Date of discharge: 05/05/22 Primary care physician: Eden Carrillo MD Consults: 04/26/22 10:34 Consult to Gastroenterology Routine Consulting Provider: Tre Yadav Reason for consultation: cirrhosis Has provider been notified: Yes 04/26/22 13:22 Consult to Infectious Diseases Stat Consulting Provider: Melodie Donald Reason for consultation: SBP Has provider been notified: No DS: Diagnosis Discharge Diagnosis (1) SBP (spontaneous bacterial peritonitis): Status: Acute (2) Ascites: Status: Acute (3) Cirrhosis: Status: Acute (4) Diabetes type 2, controlled: Status: Acute DS: Summary Hospital Course Hospital Course: 56-year-old female with past medical history of liver cirrhosis, diabetes, hypertension, abdominal ascites who presents to the hospital with complaints of nausea, vomiting, and abdominal distension as well as pain.? Patient reports that she has significant pain when she lays on her left side, she has reports that she has had significantly increased swelling in her abdomen, she reports no fever but has chills, has few episodes of nausea and vomiting nonbloody,, no diarrhea constipation, no urinary symptoms.? Denies any chest pain, denies any shortness of breath no cough.? No lower extremity edema. ER Course Labs reviewed, unremarkable except for an elevated total bili of 1.3, direct bili of 0.8, Abdominal pelvic CT shows cirrhotic liver, findings of portal hypertension with ascites, varices and recanalized umbilical vein Hospital Course Admitted to general medical floor. On 04/25/2022 patient underwent an ultrasound-guided paracentesis with the removal of 3 L. patient was apparently started on Zosyn on admission; ascites fluid culture grew E coli. Her diuretic therapy was adjusted with the help of GI. On 04/30/2022 she underwent her 2nd paracentesis from which 4 L with drained. On 05/04 she underwent an ultrasound for persistent abdominal discomfort however there is not sufficient fluid for drainage. At this point time she is feeling better and medically acceptable for discharge Time Spent with Patient Time attestation: Total time spent providing and/or coordinating discharge services: Discharge coordination time: Greater than 30 minutes Quality: Safe Use of Opioids Does Pt have an Active Cancer Diagnosis on the Problem List?: No Quality: Stroke Does the patient have a stroke diagnosis?: No Physical Exam Vital Signs: Vital Signs: Last Vital Signs Temp 97.0 F 05/05/22 07:50 Pulse 78 05/05/22 07:50 Resp 18 05/05/22 07:50 BP 90/54 L 05/05/22 07:50 Pulse Ox 93 05/05/22 07:50 O2 Del Method 05/05/22 07:50 O2 Flow Rate 6 04/28/22 13:35 BMI result Body Mass Index 30.2 Const: Other: resting comfortably in bed Resp: Other: clear to auscultation bilaterally no rales rhonchi or wheezes Cardio: Other: no S4; positive S1-S2; no S3 murmurs of gallops GI: Other: Soft mildly tender with no appreciable ascitic wave Extrem: Other: no edema bilaterally DS: Data Data Completed and Pending Completed studies during hospitalization [Text1]: Pending at discharge 04/30/22 11:00 Cytology [PTH] Routine Procedures Drainage of Peritoneal Cavity, Percutaneous Approach (06/14/21) Insertion of Infusion Device into Right Brachial Vein, Percutaneous Approach (06/14/21) Labs on day of discharge: Laboratory Results - last 24 hr 05/04/22 05/04/22 05/05/22 15:50 19:58 05:49 WBC 9.8 RBC 3.50 L Hgb 11.3 L Hct 33.8 L MCV 96.6 MCH 32.3 MCHC 33.4 RDW 16.3 H Plt Count 137 L MPV 9.4 Immature Gran % (Auto) 1.2 H Neut % (Auto) 79.7 H Lymph % (Auto) 10.0 L [place] % (Auto) 8.7 Eos % (Auto) 0.0 Baso % (Auto) 0.4 Lymph # (Auto) 1.0 L [place] # (Auto) 0.9 Eos # (Auto) 0.0 Baso # (Auto) 0.0 Abs Immat Gran (auto) 0.12 H Absolute Neuts (auto) 7.8 Absolute Nucleated RBC 0.000 Nucleated RBC % (auto) 0.0 Sodium Potassium Chloride Carbon Dioxide Anion Gap BUN Creatinine Estim Creat Clear Calc Estimated GFR POC Glucose 448 H* 408 H* Fasting Glucose Calcium Total Bilirubin AST ALT Alkaline Phosphatase Total Protein Albumin 05/05/22 05/05/22 05:49 07:48 WBC RBC Hgb Hct MCV MCH MCHC RDW Plt Count MPV Immature Gran % (Auto) Neut % (Auto) Lymph % (Auto) [place] % (Auto) Eos % (Auto) Baso % (Auto) Lymph # (Auto) [place] # (Auto) Eos # (Auto) Baso # (Auto) Abs Immat Gran (auto) Absolute Neuts (auto) Absolute Nucleated RBC Nucleated RBC % (auto) Sodium 133 L Potassium 3.9 Chloride 92 L Carbon Dioxide 32 H Anion Gap 13 BUN 19 H Creatinine 1.41 H Estim Creat Clear Calc 46.1 Estimated GFR 38 POC Glucose 348 H Fasting Glucose 391 H* Calcium 7.5 L Total Bilirubin 2.4 H AST 15 ALT 10 Alkaline Phosphatase 105 Total Protein 6.0 L Albumin 2.0 L Discharge Plan Discharge Patient Disposition: Home Health Service Discharge Diagnosis: Cirrhosis Referrals: Eden Han MD [Primary Care Provider] - 1 Week Discharge Medications: New oxycodone 5 mg Tablet 10 mg PO Q4H PRN (Reason: severe pain) Qty: 20 0RF Rx Instructions: Partial Fill upon patient request. furosemide [Lasix] 40 mg tablet 40 mg PO DAILY Qty: 30 0RF spironolactone [Aldactone] 50 mg tablet 50 mg PO BID Qty: 60 0RF levofloxacin 750 mg tablet 750 mg PO DAILY 7 Days Qty: 7 0RF Continued carvedilol 3.125 mg tablet 1 tab PO BID polyethylene glycol 3350 17 gram/dose powder 17 g PO DAILY insulin aspart U-100 [Novolog Flexpen U-100 Insulin] 100 unit/mL (3 mL) insulin pen See Protocol subcut BID Protocol: Insulin Correction Scale Less than or equal to 110 ---- Give (units): 0 111 to 150 Give (units): 0 151 to 200 Give (units): 2 201 to 250 Give (units): 4 251 to 300 Give (units): 6 301 to 350 Give (units): 8 Greater than 350 Give (units): 10 Call MD if Blood Glucose > : 350 insulin glargine [Lantus Solostar U-100 Insulin] 100 unit/mL (3 mL) insulin pen 100 unit subcut DAILY Discontinued spironolactone 25 mg tablet 2 tab PO DAILY furosemide 20 mg tablet 1 tab PO DAILY Discharge Orders: Discharge Order (Routine); Ordered 05/05/22 Ordered By: Lemuel Madsen Diet: Advance to usual diet Activity on Discharge: As tolerated Stand Alone Forms: Patient Portal Discharge page Care Plan Goals: Take Aldactone and Lasix as ordered. Levaquin 750 mg daily for 1 week. After you finish that he will take Levaquin 750 mg every Saturday and Saturday Health Concerns: Follow-up with GI and PCP within 2 weeks Plan of Treatment: You will need follow-up labs with your PCP in 2 weeks Assessment: See discharge summary
[2022-05-05 11:27] VITALS: BP 99/59; PULSE 85; RESP 18; TEMP 36.3; O2SAT 92
[2022-05-05 11:36] LABS: Glucose, Whole Blood 315 mg/dL (60-115)
--- NOTE | 2022-05-05 12:03 | MHC.CM.PN ---
Addendum entered by Kelli Maxwell RN 05/05/22 12:06: MESSAGE LEFT FOR [facility] RN HECTOR ([phone]) THAT PATIENT COULD BENEFIT FROM RN SKILLS FOR SYMPTOM MONITORING AND MANAGEMENT AND THAT DC IS TODAY, 05/05/22 Original Note: PATIENT IS DC HOME TODAY. DAUGHTER MARILEE ([phone]) AWARE OF PLANS. PREFERRED PHARMACY CHANGED FROM [facility] TO [facility] PER MARILEE'S REQUEST AWARE OF THE CHANGE IN PHARMACY MARILEE CANNOT COME TODAY SO PATIENT TO CONTACT ONE OF HER SISTER'S FOR TRANSPORT. IMM 05/05 IN CHART
== END 2022-05-05 14:20 | disposition home health service (06) | DRG 432 ==
LOC: HO.ED 23:46 → HO.EDOVER 23:54 → HO.S3 04-26 11:26
PROVIDERS: Family Medicine; Internal Medicine; Radiology Diagnostic Radiology; Admitting Provider Internal Medicine; Emergency Provider Emergency Medicine; PCP Internal Medicine; Visit Provider Hospitalist
PROC: 0W9G30Z Drainage of Peritoneal Cavity with Drainage Device, Percutaneous Approach (ICD-10-PCS; principal; 2022-04-25 12:00)
DX: K70.31 Alcoholic cirrhosis of liver with ascites (principal); K65.2 Spontaneous bacterial peritonitis; G93.40 Encephalopathy, unspecified; D68.4 Acquired coagulation factor deficiency; D64.9 Anemia, unspecified; E11.65 Type 2 diabetes mellitus with hyperglycemia; I10 Essential (primary) hypertension; B96.20 Unspecified Escherichia coli [E. coli] as the cause of diseases classified elsewhere; E11.649 Type 2 diabetes mellitus with hypoglycemia without coma; Z20.822 Contact with and (suspected) exposure to COVID-19; Z79.4 Long term (current) use of insulin; Z79.899 Other long term (current) drug therapy
CPT/HCPCS: 36415; 49083; 70450; 74177; 76705; 80048; 80053; 80076; 82042; 82105; 82140; 82248; 82947; 83605; 83690; 83735; 85007; 85025; 85027; 85610; 85730; 87040; 87070; 87071; 87073; 87077; 87186; 87205; 87635; 88112; 88305; 89051; 93975; 96361; 96374; 96375; 97162; 99285; J0696; J2270; J2405; J2543; P9047; Q9967

== ENCOUNTER 2022-05-07 14:50 | Inpatient (IN) | payer OTHER, SELFPAY ==
--- NOTE | ~2022-05-07 | US_ITS ---
EXAMINATION: ULTRASOUND-GUIDED PARACENTESIS CLINICAL INFORMATION: Rule out SBP COMPARISON: None TECHNIQUE: Following explaining ultrasound-guided paracentesis procedure, benefits and risk, a written consent was obtained from the patient. Patient was placed supine on ultrasound stretcher and preliminary ultrasound imaging was obtained through the abdomen and documented. An optimal site was selected along the right lower quadrant and marked. The marked site was cleaned and draped in usual sterile manner. 1% local Xylocaine was injected at the puncture site in the right lower quadrant. Through a small skin incision a 5 La[place] Slide catheter was advanced from the skin into the peritoneal space. After observing fluid return, stylet was withdrawn and catheter connected wire connecting cannula into vacuum bottles. After obtaining all fluid and observing no more fluid return, catheter was withdrawn and complete hemostasis achieved at puncture site. Sterile dressing applied postprocedure. Part of this fluid was sent to lab. FINDINGS: There is moderate ascites seen on pulmonary ultrasound imaging. Approximately 2.2 L of clear yellowish fluid was drained from the right lower quadrant. Part of this fluid was sent to lab for testing as per referring physician orders. US/US paracentesis abd w/image IMPRESSION: Successful ultrasound-guided paracentesis.
--- NOTE | ~2022-05-07 | CT_ITS ---
EXAMINATION: CT ABDOMEN AND PELVIS WITHOUT CONTRAST CLINICAL INFORMATION: Abdominal pain COMPARISON: 04/24/2022 TECHNIQUE: Multidetector volumetric imaging was performed from the superior aspect of the liver through the pubic symphysis. Sagittal and coronal reformatted images were obtained on the technologist's workstation. This CT examination was performed using dose optimization techniques as appropriate, variously including the following: *Automated exposure control *Adjustment of mA and/or kV according to patient size (this includes techniques or standardized protocols for targeted exams where dose is matched to indication/reason for exam; i.e. extremities or head) *Use of iterative reconstruction technique DLP: 655 mGy-cm FINDINGS: LUNG BASES: Bibasilar atelectasis. Coronary artery calcifications. LIVER, GALLBLADDER, AND BILIARY TREE: Cirrhotic liver morphology. No focal liver lesion. A few calcified granulomata are present. No biliary ductal dilatation. Small volume ascites. Multiple gallstones with prominent stone at the fundus. No definite gallbladder wall thickening. PANCREAS: Unremarkable. SPLEEN: Unremarkable. ADRENAL GLANDS: Unremarkable. KIDNEYS AND URETERS: The kidneys are normal in size, shape, and attenuation. No hydronephrosis, hydroureter, or calculi seen. No perinephric stranding. Redemonstration of the complex mixed attenuation structure at the posterior upper pole of the right kidney, with fluid and fat present. This is without change from prior. This measures 7 x 5.9 x 8 cm. BLADDER: Unremarkable. GASTROINTESTINAL TRACT: The small and large bowel are unremarkable. The appendix is unremarkable. ABDOMINAL WALL: No significant hernia is appreciated. LYMPH NODES: Normal. VASCULAR: Normal caliber aorta with mild atherosclerotic calcification. Upper abdominal varices again noted with recanalized umbilical vein. PELVIC VISCERA: Anteverted uterus. There is a right adnexal dermoid again noted. This is unchanged. OSSEOUS STRUCTURES: No acute or suspicious osseous abnormality. Mild degenerative changes in the spine. CT/CT abdomen pelvis wo IV con IMPRESSION: No acute findings. Cirrhotic liver. Changes of portal hypertension. Small volume ascites. No significant change in appearance of the mixed attenuation right renal lesion, with fluid and fat present. Given the lack of change from the prior study, but new appearance from 06/24/2021, nonemergent MRI could be performed to better evaluate. Right adnexal dermoid is unchanged. Fleischner guidelines were followed.
[2022-05-07 14:57] VITALS: BP 122/80; PULSE 96; O2SAT 98
[2022-05-07 14:58] VITALS: BP 135/78; PULSE 90; RESP 18; TEMP 37.2; O2SAT 96; BMI 29.1
--- NOTE | 2022-05-07 15:02 | ECG_ITS ---
Test Reason : abdominal pain Blood Pressure : / mmHG Vent. Rate : 095 BPM Atrial Rate : 095 BPM P-R Int : 152 ms QRS Dur : 072 ms QT Int : 376 ms P-R-T Axes : 026 012 027 degrees QTc Int : 472 ms Normal sinus rhythm Cannot rule out Anterior infarct (cited on or before 07-MAY-2022) Abnormal ECG When compared with ECG of 15-JUN-2021 13:55, Nonspecific T wave abnormality is no longer Present Referred By: Generic ED Physician Electronically Signed By:TYLER SCOTT
[2022-05-07 15:49] LABS: MANUAL DIFF FLAG NO
[2022-05-07 15:51] LABS: Basophils Percent Auto 0.3 % (0-2); Hematocrit 38.3 % (37.0-47.0); Hemoglobin 12.8 g/dl (12.0-16.0); Imm Gran Abs Auto 0.09 X10*3/uL (0.00-0.03); Imm Gran Pct Auto 0.7 % (0.0-0.4); Lymphocytes Absolute Auto 0.9 X10*3/uL (1.2-4.9); Lymphocytes Percent Auto 6.8 % (20-40); Mean Corpuscular HGB Conc 33.4 g/dl (31.0-35.0); Mean Corpuscular Hemoglobin 31.8 pg (27.0-33.0); Mean Platelet Volume 9.6 fL (9.4-12.3); Monocytes Absolute Auto 0.9 X10*3/uL (0.1-1.2); Monocytes Percent Auto 6.5 % (2-11); Neutrophils Absolute Auto 11.4 x10*3/uL (2.0-8.3); Neutrophils Percent Auto 85.7 % (45-73); Platelet Count 192 X10*3/uL (160-400); Red Blood Count 4.03 X10*6/uL (4.20-5.50); Red Cell Distribution Width 16.5 % (11.0-16.0); White Blood Count 13.3 X10*3/uL (4.8-10.8)
[2022-05-07 16:06] LABS: COVID-19 Test Negative (Negative)
[2022-05-07 16:11] LABS: Troponin-I High Sensitivity < 3.5 ng/L (<3.5-17.0)
[2022-05-07 16:12] LABS: Alanine Aminotransferase 11 U/L (0-31); Albumin Level 2.4 g/dL (3.5-5.0); Alkaline Phosphatase 121 U/L (39-117); Anion Gap 12 (12-20); Aspartate Amino Transferase 23 U/L (5-31); Bilirubin Direct 1.2 mg/dL (0.0-0.5); Bilirubin Total 2.2 mg/dL (0.0-1.0); Blood Urea Nitrogen 14 mg/dL (9-16); Calcium 8.3 mg/dL (8.4-10.2); Carbon Dioxide 31 mmol/L (22-29); Chloride 91 mmol/L (96-108); Creatinine Clr Calc Pharmacy 47.9; Estimated Glomerular Filt Rate 41; Glucose Random 356 mg/dL (60-115); Lipase 37 U/L (8-78); Potassium 4.3 mmol/L (3.3-5.1); Sodium 130 mmol/L (135-145); Total Protein 7.7 g/dL (6.5-8.0)
[2022-05-07 20:33] VITALS: BP 119/79; PULSE 90; RESP 18; TEMP 36.5; O2SAT 97
--- NOTE | 2022-05-07 21:34 | ED_ITS ---
HPI - Abdominal Pain General Chief Complaint: Abdominal Pain Stated Complaint: ABD PAIN Time Seen by Provider: 05/07/22 23:00 Source: patient and EMS Mode of arrival: EMS Limitations: no limitations History of Present Illness HPI narrative: 56-year-old female presents via EMS for worsening abdominal pain after para centesis. Patient was admitted to this facility on 04/24/2022 and discharged on 05/05. Patient states that she was ?supposed to get pain medications? but did not receive them. Patient is a poor historian, is focused on her abdominal pain. MD elicited complaint: abdominal pain Pertinent past history: other (Paracentesis 05/05/2022) Onset (ago): day(s) (3) Pain Consistency: constant Location: diffuse Severity: severe Pain scale (0-10): 10 Quality: aching Exacerbating factors: movement Relieving factors: nothing Context: recent antibiotic use Associated symptoms: denies other symptoms Related Data Home Medications Medication Instructions Recorded Confirmed carvedilol 3.125 mg tablet 1 tab PO BID 04/25/22 04/25/22 insulin aspart U-100 100 unit/mL See Protocol subcut BID 04/25/22 04/25/22 (3 mL) subcutaneous pen (Novolog Flexpen U-100 Insulin aspart) insulin glargine 100 unit/mL (3 100 unit subcut DAILY 04/25/22 04/25/22 mL) subcutaneous pen (Lantus Solostar U-100 Insulin) polyethylene glycol 3350 17 17 g PO DAILY 04/25/22 04/25/22 gram/dose oral powder Previous Rx's Medication Instructions Recorded furosemide 40 mg tablet (Lasix) 40 mg PO DAILY #30 tabs 05/05/22 levofloxacin 750 mg tablet 750 mg PO DAILY 7 days #7 tabs 05/05/22 oxycodone 5 mg tablet 10 mg PO Q4H PRN severe pain #20 05/05/22 tabs spironolactone 50 mg tablet 50 mg PO BID #60 tabs 05/05/22 (Aldactone) Allergies Allergy/AdvReac Type Severity Reaction Status Date / Time No Known Allergies Allergy Verified 07/19/21 14:20 [No Known Allergies*] Review of Systems Review of Systems Constitutional: No Fever, No Chills ENT/Mouth: No Ear Pain, No Hoarseness, No sore throat Eyes: No Eye Pain, No Swelling, No Redness, No Foreign Body Cardiovascular: No Chest Pain, No SOB Respiratory: No Cough, No Dyspnea Gastrointestinal: No Nausea, No Vomiting, No Diarrhea, positive abdominal Pain, positive abdominal distention Genitourinary: No Dysuria, No Hematuria Musculoskeletal: No joint pain, No Myalgias, No Joint Swelling Skin: No Skin lacerations, No rash Neuro: No Weakness, No Numbness, No Paresthesias, No Loss of Consciousness, No Dizziness, No Headache Psych: No Anxiety/Panic, No Depression Heme/Lymph: no easy bruising, no Lymphadenopathy Endocrine: No Polyuria, No Polydipsia Yes all other systems are reviewed and are negative [facility] Past Medical History Attestation statement: The following information was validated with the patient. Source: old records reviewed Medical History Cirrhosis Cirrhosis Diabetes (~01/31/21) Diabetes mellitus with hyperglycemia HTN (hypertension) UTI due to extended-spectrum beta lactamase (ESBL) producing Escherichia coli Family History Family History Mother No problems noted. Father No problems noted. Social History Social History Household Members: Children Housing: House Do you presently have visiting nurse or other home services: No Alcohol intake: never Patient Tobacco Use Status: Never used Tobacco e-Cigarette/Vaping Use: Never Used Second Hand Smoke Exposure: No Advance Directives: No Advance Directives Information Provided: No service: No Current occupational status: unemployed and disabled Cognitive needs: No Hearing needs: No Vision needs: No Physical Exam ED Vital Signs: Vital Signs - 24 hr 05/07/22 14:58 05/07/22 20:33 Temperature 98.9 F 97.7 F Pulse Rate 90 90 Respiratory Rate 18 18 Blood Pressure 135/78 119/79 Pulse Oximetry 96 97 Oxygen Delivery Method Room Air Room Air BMI result Body Mass Index 29.1 Appearance: Alert. Oriented X3. Moderate distress. Eyes: Pupils equal, round and reactive to light. No nystagmus. Sclera nonicteric. ENT: Pharynx normal. Dry mucous membranes. Neck: Normal inspection. Neck supple. CVS: Normal heart rate and rhythm. Pulses normal. Respiratory: No respiratory distress. Breath sounds normal. Abdomen: Soft and diffusely tender. Skin: Skin warm and dry. Normal skin color. Normal skin turgor. Extremities: No lower extremity edema. Moves all extremities against resistance. Neuro: No motor deficit. No sensory deficit. Cranial nerves 2-12 intact. Course Course Course Narrative: Patient in the waiting room for 6 hours and 45 minutes. 56-year-old female presents with diffuse abdominal pain, states that she had a paracentesis 2 days ago and prior to her discharge. Was discharged on 05/05/2022 was admitted for abdominal distension, required IR paracentesis and was found to have E coli in her peritoneal fluid. She was given Zosyn and discharged home with oxycodone, Lasix, spironolactone, and Levaquin. Patient is a poor historian, states that she does not know if she has been taking her medications, states to have pain however repeatedly states that no one gave her any pain medications for home use. In review of her discharge instructions, she was discharged with oxycodone 10 mg q.4 hours for severe pain. I did discuss her discharge medications, patient states that she does not know if she has been taking them, but feels like she might have. 21:40 White count is 13.3 which is a marked elevation from her prior labs with the exception of 05/04/2022 at 11.2. corrected sodium 134. BUN 14/1.33 which is an improvement from 05/05/2020 10/08/2018 and 1.41. Blood sugars 356, will provide insulin, bilirubin is 2.2, on 05/05/2022 it was 2.4, alk-phos is elevated at 121 from 0105. Patient is afebrile, appears uncomfortable however nontoxic. I do not feel that this patient meets sepsis criteria at this time. Will order CT abdomen and pelvis. 22:50 CT scan indicates no acute findings, small volume ascites, cirrhotic li ena, portal hypertensive gastropathy, chronic cholelithiasis without cholecystitis, and redemonstration of complex mixed attenuation structure at the posterior upper pole the right kidney. Order for Zosyn, fluids, morphine, and Zofran. 00:23 critical lactic 2.4. 00:40 discussion with hospitalist regarding plan of care to admit for abdominal pain. I did discuss this plan with the patient who agrees with plan. Consultations Consultation #1: [place] Time: 00:44 MDM - Abdominal Pain Differential Diagnosis Differential diagnosis: Likely abdominal pain, bowel perforation, diverticulitis and pancreatitis Medical Records Attestation: I reviewed the patient's medical records. Lab Data Attestation: I reviewed the patient's lab results. Result diagrams: 05/07/22 15:42 05/07/22 15:42 Labs: Lab Results 05/07/22 05/07/22 05/07/22 Range/Units 15:42 15:42 15:42 WBC 13.3 H (4.8-10.8) X10*3/uL RBC 4.03 L (4.20-5.50) X10*6/uL Hgb 12.8 (12.0-16.0) g/dl Hct 38.3 (37.0-47.0) % MCV 95.0 (80.0-98.0) fL MCH 31.8 (27.0-33.0) pg MCHC 33.4 (31.0-35.0) g/dl RDW 16.5 H (11.0-16.0) % Plt Count 192 D (160-400) X10*3/uL MPV 9.6 (9.4-12.3) fL Immature Gran % (Auto) 0.7 H (0.0-0.4) % Neut % (Auto) 85.7 H (45-73) % Lymph % (Auto) 6.8 L (20-40) % [place] % (Auto) 6.5 (2-11) % Eos % (Auto) 0.0 (0-4) % Baso % (Auto) 0.3 (0-2) % Lymph # (Auto) 0.9 L (1.2-4.9) X10*3/uL [place] # (Auto) 0.9 (0.1-1.2) X10*3/uL Eos # (Auto) 0.0 (0.0-0.4) X10*3/uL Baso # (Auto) 0.0 (0.0-0.2) X10*3/uL Abs Immat Gran (auto) 0.09 H (0.00-0.03) X10*3/uL Absolute Neuts (auto) 11.4 H (2.0-8.3) x10*3/uL Absolute Nucleated RBC 0.000 (0.0-0.012) X10*3/uL Nucleated RBC % (auto) 0.0 (0.0-0.2) /100WBC Sodium 130 L (135-145) mmol/L Potassium 4.3 (3.3-5.1) mmol/L Chloride 91 L (96-108) mmol/L Carbon Dioxide 31 H (22-29) mmol/L Anion Gap 12 (12-20) BUN 14 (9-16) mg/dL Creatinine 1.33 (0.5-1.4) mg/dL Estim Creat Clear Calc 47.9 Estimated GFR 41 Random Glucose 356 H* (60-115) mg/dL Calcium 8.3 L D (8.4-10.2) mg/dL Total Bilirubin 2.2 H (0.0-1.0) mg/dL Direct Bilirubin 1.2 H (0.0-0.5) mg/dL AST 23 D (5-31) U/L ALT 11 (0-31) U/L Alkaline Phosphatase 121 H (39-117) U/L Troponin I High Sens < 3.5 (<3.5-17.0) ng/L Total Protein 7.7 D (6.5-8.0) g/dL Albumin 2.4 L (3.5-5.0) g/dL Lipase 37 (8-78) U/L COVID-19 (DAVION) (Negative) COVID-19 Clin Com 05/07/22 Range/Units 15:42 WBC (4.8-10.8) X10*3/uL RBC (4.20-5.50) X10*6/uL Hgb (12.0-16.0) g/dl Hct (37.0-47.0) % MCV (80.0-98.0) fL MCH (27.0-33.0) pg MCHC (31.0-35.0) g/dl RDW (11.0-16.0) % Plt Count (160-400) X10*3/uL MPV (9.4-12.3) fL Immature Gran % (Auto) (0.0-0.4) % Neut % (Auto) (45-73) % Lymph % (Auto) (20-40) % [place] % (Auto) (2-11) % Eos % (Auto) (0-4) % Baso % (Auto) (0-2) % Lymph # (Auto) (1.2-4.9) X10*3/uL [place] # (Auto) (0.1-1.2) X10*3/uL Eos # (Auto) (0.0-0.4) X10*3/uL Baso # (Auto) (0.0-0.2) X10*3/uL Abs Immat Gran (auto) (0.00-0.03) X10*3/uL Absolute Neuts (auto) (2.0-8.3) x10*3/uL Absolute Nucleated RBC (0.0-0.012) X10*3/uL Nucleated RBC % (auto) (0.0-0.2) /100WBC Sodium (135-145) mmol/L Potassium (3.3-5.1) mmol/L Chloride (96-108) mmol/L Carbon Dioxide (22-29) mmol/L Anion Gap (12-20) BUN (9-16) mg/dL Creatinine (0.5-1.4) mg/dL Estim Creat Clear Calc Estimated GFR Random Glucose (60-115) mg/dL Calcium (8.4-10.2) mg/dL Total Bilirubin (0.0-1.0) mg/dL Direct Bilirubin (0.0-0.5) mg/dL AST (5-31) U/L ALT (0-31) U/L Alkaline Phosphatase (39-117) U/L Troponin I High Sens (<3.5-17.0) ng/L Total Protein (6.5-8.0) g/dL Albumin (3.5-5.0) g/dL Lipase (8-78) U/L COVID-19 (DAVION) Negative (Negative) COVID-19 Clin Com See Note Imaging Data CT scan - abdomen: Attestation: I personally reviewed and interpreted this imaging study as follows: Radiologist's impression: EXAMINATION: CT ABDOMEN AND PELVIS WITHOUT CONTRAST? CLINICAL INFORMATION: Abdominal pain? COMPARISON: 04/24/2022? TECHNIQUE: Multidetector volumetric imaging was performed from the superior aspect of the liver through the pubic symphysis. Sagittal and coronal reformatted images were obtained on the technologist's workstation.? This CT examination was performed using dose optimization techniques as appropriate, variously including the following: *Automated exposure control *Adjustment of mA and/or kV according to patient size (this includes techniques or standardized protocols for targeted exams where dose is matched to indication/reason for exam; i.e. extremities or head) *Use of iterative reconstruction technique DLP: 655 mGy-cm FINDINGS: LUNG BASES: Bibasilar atelectasis. Coronary artery calcifications.? LIVER, GALLBLADDER, AND BILIARY TREE: Cirrhotic liver morphology. No focal liver lesion. A few calcified granulomata are present. No biliary ductal dilatation. Small volume ascites. Multiple gallstones with prominent stone at the fundus. No definite gallbladder wall thickening. ? PANCREAS: Unremarkable.? SPLEEN: Unremarkable.? ADRENAL GLANDS: Unremarkable.? KIDNEYS AND URETERS: The kidneys are normal in size, shape, and attenuation. No hydronephrosis, hydroureter, or calculi seen. No perinephric stranding. Redemonstration of the complex mixed attenuation structure at the posterior upper pole of the right kidney, with fluid and fat present. This is without change from prior. This measures 7 x 5.9 x 8 cm. BLADDER: Unremarkable.? GASTROINTESTINAL TRACT: The small and large bowel are unremarkable. The appendix is unremarkable.? ABDOMINAL WALL: No significant hernia is appreciated.? LYMPH NODES: Normal. VASCULAR: Normal caliber aorta with mild atherosclerotic calcification. Upper abdominal varices again noted with recanalized umbilical vein. PELVIC VISCERA: Anteverted uterus. There is a right adnexal dermoid again noted. This is unchanged.? OSSEOUS STRUCTURES: No acute or suspicious osseous abnormality. Mild degenerative changes in the spine.? CT/CT abdomen pelvis wo IV con IMPRESSION: No acute findings. Cirrhotic liver. Changes of portal hypertension. Small volume ascites. ? No significant change in appearance of the mixed attenuation right renal lesion, with fluid and fat present. Given the lack of change from the prior study, but new appearance from 06/24/2021, nonemergent MRI could be performed to better evaluate. ? Right adnexal dermoid is unchanged. ? Fleischner guidelines were followed. ECG Data Attestation: I personally reviewed and interpreted this ECG as follows: ECG interpretation date: 05/07/22 ECG interpretation time: 15:36 Prior ECG tracings: available for review Interpretation: Vent. rate 95 BPM WA interval 152 ms QRS duration 72 ms QT/QTc 376/472 ms P-R-T axes 26 12 27 Normal sinus rhythm Cannot rule out Anterior infarct (cited on or before 07-MAY-2022) Abnormal ECG When compared with ECG of 15-JUN-2021 13:55, No significant change was found Discharge Plan Discharge Prescriptions: No Action carvedilol 3.125 mg tablet 1 tab PO BID polyethylene glycol 3350 17 gram/dose powder 17 g PO DAILY insulin aspart U-100 [Novolog Flexpen U-100 Insulin] 100 unit/mL (3 mL) insulin pen See Protocol subcut BID Protocol: Insulin Correction Scale Less than or equal to 110 ---- Give (units): 0 111 to 150 Give (units): 0 151 to 200 Give (units): 2 201 to 250 Give (units): 4 251 to 300 Give (units): 6 301 to 350 Give (units): 8 Greater than 350 Give (units): 10 Call MD if Blood Glucose > : 350 insulin glargine [Lantus Solostar U-100 Insulin] 100 unit/mL (3 mL) insulin pen 100 unit subcut DAILY oxycodone 5 mg Tablet 10 mg PO Q4H PRN (Reason: severe pain) Qty: 20 0RF Rx Instructions: Partial Fill upon patient request. furosemide [Lasix] 40 mg tablet 40 mg PO DAILY Qty: 30 0RF spironolactone [Aldactone] 50 mg tablet 50 mg PO BID Qty: 60 0RF levofloxacin 750 mg tablet 750 mg PO DAILY 7 Days Qty: 7 0RF
[2022-05-08] VITALS (7 sets, daily range): BP systolic 97–119; BP diastolic 55–70; PULSE 79–94; RESP 14–18; TEMP 36.2–36.8; O2SAT 94–99
[2022-05-08] MEDS: 0.9 % Sodium Chloride 1,000 ML 999 ML IVCONT (00:18)
[2022-05-08] MEDS: ondansetron HCL 4 MG/2 ML VIAL IVPUSH (00:20)
[2022-05-08] MEDS: Morphine Sulfate 4 MG/ML CARTRIDGE IVPUSH ×2 (00:20→18:35)
[2022-05-08] MEDS: Insulin Lispro 100 UNIT/ML 3 ML VIAL 10 UNIT SUBCUT (00:21)
[2022-05-08] MEDS: Piperacillin Sodium/Tazobactam 3.375 GM in 0.9 % Sodium Chloride 50 ML IV (00:22)
[2022-05-08 00:23] LABS: Lactic Acid 2.4 mmol/L (0.5-2.0)
--- NOTE | 2022-05-08 00:58 | PC.NURSE ---
pt a&ox3, vss, 20G IV placed left forearm, labs drawn, pt reporting 8/10 right sided abd pain, medicated per provider order.
[2022-05-08] MEDS: cefTRIAXone sodium 1 GM in 0.9 % Sodium Chloride 50 ML IV (02:16)
[2022-05-08 02:22] LABS: INTERNATIONAL NORM RATIO 1.6 (0.9-1.1); Prothrombin Time 18.2 SEC (10.0-13.1)
[2022-05-08 02:37] LABS: Lactic Acid 3.3 mmol/L (0.5-2.0)
[2022-05-08 04:15] LABS: Reflex Lactate? Lactic Acid Added
[2022-05-08 04:33] LABS: MANUAL DIFF FLAG NO
[2022-05-08 04:34] LABS: Basophils Percent Auto 0.4 % (0-2); Hematocrit 34.3 % (37.0-47.0); Hemoglobin 11.4 g/dl (12.0-16.0); Imm Gran Abs Auto 0.06 X10*3/uL (0.00-0.03); Imm Gran Pct Auto 0.5 % (0.0-0.4); Lymphocytes Absolute Auto 0.9 X10*3/uL (1.2-4.9); Lymphocytes Percent Auto 8.1 % (20-40); Mean Corpuscular HGB Conc 33.2 g/dl (31.0-35.0); Mean Corpuscular Hemoglobin 32.3 pg (27.0-33.0); Mean Corpuscular Volume 97.2 fL (80.0-98.0); Mean Platelet Volume 9.7 fL (9.4-12.3); Monocytes Absolute Auto 0.8 X10*3/uL (0.1-1.2); Monocytes Percent Auto 7.4 % (2-11); Neutrophils Absolute Auto 9.2 x10*3/uL (2.0-8.3); Neutrophils Percent Auto 83.6 % (45-73); Platelet Count 157 X10*3/uL (160-400); Red Blood Count 3.53 X10*6/uL (4.20-5.50); Red Cell Distribution Width 16.5 % (11.0-16.0)
[2022-05-08 04:49] LABS: ~Lactic Acid-LAB USE ONLY 2.3 mmol/L (0.5-2.0)
[2022-05-08 04:50] LABS: Appearance Urine Clear; Color Urine Dark Yellow; Glucose Urine UA Negative (Negative); Leukocyte Esterase Urine Small (1+) (Negative); Nitrite Urine Negative (Negative); PH 7.5 (5.0-9.0); UMIC TRIGGER UACC YES; Urine Blood Negative (Negative); Urine Ketones Negative (Negative); Urine Protein Trace mg/dL (Neg-Trace)
[2022-05-08 04:57] LABS: Anion Gap 13 (12-20); Blood Urea Nitrogen 17 mg/dL (9-16); Calcium 7.7 mg/dL (8.4-10.2); Carbon Dioxide 27 mmol/L (22-29); Chloride 97 mmol/L (96-108); Creatinine Clr Calc Pharmacy 51.4; Estimated Glomerular Filt Rate 44; Glucose Random 298 mg/dL (60-115); Sodium 133 mmol/L (135-145)
[2022-05-08 05:01] LABS: Bacteria Urine None Seen (None Seen); Hyaline Casts Urine 0-2 /LPF (0-2); RBC Urine 0-2 /HPF (0-2); UACC Culture Trigger YES
[2022-05-08 06:31] LABS: Reflex Lactate? 2 Y
--- NOTE | 2022-05-08 06:32 | P.HPHOSP_ITS ---
History of Present Illness Date of Service: 05/08/22 Chief Complaint: abdominal pain 6-year-old female with past medical history of liver cirrhosis, diabetes, hypertension presents to the hospital with complaints of abdominal pain. Patient was discharged from the hospital on 05/05 with similar presentation of on 04 25 at that time found to have E coli in the abdominal ascites. Patient was treated with IV antibiotics, and sent home on levofloxacin. Patient reports that since discharge she continued to have abdominal pain that was intractable, localized mostly to the right upper quadrant, nonradiating, constant,10/10, no alleviating or exacerbating factors. she denies any nausea or vomiting, no diarrhea or constipation, no fever but has chills, no chest pain or shortness of breath, no urinary symptoms and no lower extremity edema. On arrival to the ED patient hemodynamically stable with no significant abnormal vitals Labs are significant for WBC count of 13.3 which increased from 9.8 on day of discharge, INR of 1.6, sodium of 130, potassium of 4.3, lactic acid of 3.3, UA is positive for leukocyte Estrace and WBC CT abdomen shows small amount of ascites with no acute findings no attempt to do paracentesis in the ED was made as previous at times on previous admissions had failed given the intractable pain and concern for SBP patient started on IV antibiotics and will be admitted for further management Review of Systems Review of Systems: Yes all other systems are reviewed and are negative [facility] Medical History Cirrhosis Cirrhosis Diabetes (~01/31/21) Diabetes mellitus with hyperglycemia HTN (hypertension) UTI due to extended-spectrum beta lactamase (ESBL) producing Escherichia coli Family History Mother No problems noted. Father No problems noted. Social History Household Members: Children Housing: House Do you presently have visiting nurse or other home services: No Alcohol intake: never Patient Tobacco Use Status: Never used Tobacco e-Cigarette/Vaping Use: Never Used Second Hand Smoke Exposure: No Use of substances other than those prescribed or required for medical reasons: No Advance Directives: No Advance Directives Information Provided: No service: No Current occupational status: unemployed and disabled Cognitive needs: No Hearing needs: No Vision needs: No Meds Allergies Allergy/AdvReac Type Severity Reaction Status Date / Time No Known Allergies Allergy Verified 07/19/21 14:20 [No Known Allergies*] Active Medications: Current Medications Acetaminophen (Acetaminophen 325 Mg Tablet) 650 mg PO Q12H PRN PRN Reason: Pain, Mild (Pain Scale 1-3) Docusate Sodium (Docusate Sodium 100 Mg Capsule) 100 mg PO DAILY PRN PRN Reason: Constipation Heparin Sodium (Porcine) (Heparin Sodium,Porcine 5,000 Unit/Ml Vial) 5,000 unit SUBCUT Q12H [facility] Ceftriaxone Sodium 1 gm/ (Sodium Chloride) 50 mls @ 100 mls/hr IV Q24H [facility] Last Infusion: 05/08/22 02:59 Dose: Infused Morphine Sulfate (Morphine Sulfate 4 Mg/Ml Cartridge) 4 mg IVPUSH Q8H PRN; Protocol PRN Reason: Pain, Severe (Pain Scale 7-10) Ondansetron HCl (Ondansetron Hcl 4 Mg/2 Ml Vial) 4 mg IVPUSH Q8H PRN PRN Reason: Nausea and Vomiting Sodium Chloride (0.9 % Sodium Chloride Flush 3 Ml Syringe) 3 ml IVFLUSH QSHIFT [facility] Home Medications Medication Instructions Recorded Confirmed Last Taken Type carvedilol 3.125 mg tablet 1 tab PO BID 04/25/22 04/25/22 Unknown History insulin aspart U-100 100 unit/mL See Protocol subcut BID 04/25/22 04/25/22 Unknown History (3 mL) subcutaneous pen (Novolog Flexpen U-100 Insulin aspart) insulin glargine 100 unit/mL (3 100 unit subcut DAILY 04/25/22 04/25/22 Unknown History mL) subcutaneous pen (Lantus Solostar U-100 Insulin) polyethylene glycol 3350 17 17 g PO DAILY 04/25/22 04/25/22 Unknown History gram/dose oral powder Physical Exam Vital Signs and Narrative: Vital Signs: Last Vital Signs Temp 98.2 F 05/08/22 04:44 Pulse 85 05/08/22 04:44 Resp 16 05/08/22 04:44 BP 108/63 05/08/22 04:44 Pulse Ox 95 05/08/22 04:44 O2 Del Method 05/08/22 04:44 BMI result Body Mass Index 29.1 Const: General: cooperative and no acute distress Orientation/consciousness: patient oriented x3 Eyes: General: appearance normal, both eyes and all related structures Pupils: Equal, round and reactive pupils present Resp: Effort & Inspection: normal respiratory effort Auscultation: clear to auscultation bilaterally Cardio: Rate: regular rate Rhythm: regular rhythm GI: Other: abdomen is distended, tender to minimal palpation worse on the right upper quadrant Palpation (GI): Soft to palpation Auscultation: normal bowel sounds Skin: General skin exam: no rashes or lesions noted Neuro: General: patient oriented x3 Cranial nerves: Yes Equal, round and reactive pupils present Cognition (Neuro): normal cognition Extrem: General: Yes normal to inspection and Yes no pedal edema Results Labs CBC and Chem 7: 05/08/22 04:27 05/08/22 04:27 Labs: Laboratory Results - last 24 hr 05/07/22 05/07/22 05/07/22 00:05 15:42 15:42 MCV 95.0 MCH 31.8 MCHC 33.4 RDW 16.5 H Plt Count 192 D MPV 9.6 Immature Gran % (Auto) 0.7 H Neut % (Auto) 85.7 H Lymph % (Auto) 6.8 L [place] % (Auto) 6.5 Eos % (Auto) 0.0 Baso % (Auto) 0.3 Lymph # (Auto) 0.9 L [place] # (Auto) 0.9 Eos # (Auto) 0.0 Baso # (Auto) 0.0 Abs Immat Gran (auto) 0.09 H Absolute Neuts (auto) 11.4 H Absolute Nucleated RBC 0.000 Nucleated RBC % (auto) 0.0 PT INR Anion Gap 12 Estim Creat Clear Calc 47.9 Estimated GFR 41 Random Glucose 356 H* Lactic Acid 2.4 H* Lactic Acid F/U @ 2Hr Calcium 8.3 L D Total Bilirubin 2.2 H Direct Bilirubin 1.2 H AST 23 D ALT 11 Alkaline Phosphatase 121 H Total Protein 7.7 D Albumin 2.4 L Lipase 37 Urine Color Urine Appearance Urine pH Ur Specific [place] Urine Protein Urine Glucose (UA) Urine Ketones Urine Blood Urine Nitrite Ur Leukocyte Esterase Urine RBC Urine WBC Ur Squamous Epith Cells Urine Bacteria Hyaline Casts COVID-19 ([facility]) COVID-19 Clin Com 05/07/22 05/08/22 05/08/22 15:42 02:11 02:11 MCV MCH MCHC RDW Plt Count MPV Immature Gran % (Auto) Neut % (Auto) Lymph % (Auto) [place] % (Auto) Eos % (Auto) Baso % (Auto) Lymph # (Auto) [place] # (Auto) Eos # (Auto) Baso # (Auto) Abs Immat Gran (auto) Absolute Neuts (auto) Absolute Nucleated RBC Nucleated RBC % (auto) PT 18.2 H INR 1.6 H Anion Gap Estim Creat Clear Calc Estimated GFR Random Glucose Lactic Acid 3.3 H* Lactic Acid F/U @ 2Hr Calcium Total Bilirubin Direct Bilirubin AST ALT Alkaline Phosphatase Total Protein Albumin Lipase Urine Color Urine Appearance Urine pH Ur Specific [place] Urine Protein Urine Glucose (UA) Urine Ketones Urine Blood Urine Nitrite Ur Leukocyte Esterase Urine RBC Urine WBC Ur Squamous Epith Cells Urine Bacteria Hyaline Casts COVID-19 ([facility]) Negative COVID-19 Clin Com See Note 05/08/22 05/08/22 05/08/22 04:27 04:27 04:27 MCV 97.2 MCH 32.3 MCHC 33.2 RDW 16.5 H Plt Count 157 L MPV 9.7 Immature Gran % (Auto) 0.5 H Neut % (Auto) 83.6 H Lymph % (Auto) 8.1 L [place] % (Auto) 7.4 Eos % (Auto) 0.0 Baso % (Auto) 0.4 Lymph # (Auto) 0.9 L [place] # (Auto) 0.8 Eos # (Auto) 0.0 Baso # (Auto) 0.0 Abs Immat Gran (auto) 0.06 H Absolute Neuts (auto) 9.2 H Absolute Nucleated RBC 0.000 Nucleated RBC % (auto) 0.0 PT INR Anion Gap 13 Estim Creat Clear Calc 51.4 Estimated GFR 44 Random Glucose 298 H Lactic Acid Lactic Acid F/U @ 2Hr 2.3 H* Calcium 7.7 L D Total Bilirubin Direct Bilirubin AST ALT Alkaline Phosphatase Total Protein Albumin Lipase Urine Color Urine Appearance Urine pH Ur Specific [place] Urine Protein Urine Glucose (UA) Urine Ketones Urine Blood Urine Nitrite Ur Leukocyte Esterase Urine RBC Urine WBC Ur Squamous Epith Cells Urine Bacteria Hyaline Casts COVID-19 ([facility]) COVID-19 Clin Com 05/08/22 04:43 MCV MCH MCHC RDW Plt Count MPV Immature Gran % (Auto) Neut % (Auto) Lymph % (Auto) [place] % (Auto) Eos % (Auto) Baso % (Auto) Lymph # (Auto) [place] # (Auto) Eos # (Auto) Baso # (Auto) Abs Immat Gran (auto) Absolute Neuts (auto) Absolute Nucleated RBC Nucleated RBC % (auto) PT INR Anion Gap Estim Creat Clear Calc Estimated GFR Random Glucose Lactic Acid Lactic Acid F/U @ 2Hr Calcium Total Bilirubin Direct Bilirubin AST ALT Alkaline Phosphatase Total Protein Albumin Lipase Urine Color Dark Yellow Urine Appearance Clear Urine pH 7.5 Ur Specific [place] 1.020 Urine Protein Trace Urine Glucose (UA) Negative Urine Ketones Negative Urine Blood Negative Urine Nitrite Negative Ur Leukocyte Esterase Small (1+) H Urine RBC 0-2 Urine WBC 6-10 H Ur Squamous Epith Cells 3-5 Urine Bacteria None Seen Hyaline Casts 0-2 COVID-19 ([facility]) COVID-19 Clin Com Imaging Radiologist's Impressions: Impressions Abdomen/Pelvis CT 05/07/22 21:58 IMPRESSION: No acute findings. Cirrhotic liver. Changes of portal hypertension. Small volume ascites. No significant change in appearance of the mixed attenuation right renal lesion, with fluid and fat present. Given the lack of change from the prior study, but new appearance from 06/24/2021, nonemergent MRI could be performed to better evaluate. Right adnexal dermoid is unchanged. Fleischner guidelines were followed. Assessment and Plan (1) Abdominal pain: Qualifiers: Abdominal location: right upper quadrant Qualified Code(s): R10.11 - Right upper quadrant pain Status: Acute (2) SBP (spontaneous bacterial peritonitis): Status: Acute (3) Abdominal distension: Status: Acute (4) UTI (urinary tract infection): Qualifiers: Urinary tract infection type: acute cystitis Hematuria presence: without hematuria Qualified Code(s): N30.00 - Acute cystitis without hematuria Status: Acute Plan 48-year-old female with past medical history of liver cirrhosis, and recurrent admissions for increased ascites and therapeutic paracentesis presents to the hospital with abdominal pain # abdominal pain - concern for SBP, in the light of recent admission and E coli findings in the ascitic fluid - patient has leukocytosis, but afebrile - elevated lactic acidosis - at this time will treat with IV antibiotics based on previous sensitivity - will consult IR for paracentesis in a.m. -pain control # SBP - given the abdominal pain, leukocytosis, and previous results will treat with IV antibiotics - follow cultures - IR consulted # UTI - positive UA - will treat with IV antibiotics as above - follow cultures # history of hypertension - stable but on the low end - hold home antihypertensives # diabetes - low-dose sliding scale insulin - continue home insulin - diabetic diet DVT prophylaxis: Heparin subQ Pt will require a minimum 2 night hospital stay for IV antibiotics and paracentesis Quality Stroke Does the patient have a stroke diagnosis?: No VTE Prior VTE?: No VTE Risk Level:: Medical - moderate - high VTE Device Contraindication: Treatment Not Indicated VTE Drug Contraindication: N/A - Med Ordered
--- NOTE | 2022-05-08 06:34 | PC.NURSE ---
pt reporting increased pain, declined tylenol, provider notified - pt unable to have any more pain medication at this time due to cirrhosis, pt notified.
[2022-05-08 07:20] LABS: ~Lactic Acid-LAB USE ONLY 1.9 mmol/L (0.5-2.0)
--- NOTE | 2022-05-08 08:46 | PHA.MEDREC ---
Pharmacy Consult ? Medication Reconciliation Pharmacy has completed the medication reconciliation. Patient endorses medication changes with lasix and spironolactone. She states that she is only taking 20 units of lantus as bedtime. Last rx is written for 100 units, and she was getting 50 units during her last stay. It could be because she is not eating. Thanks Miles
[2022-05-08] MEDS: 0.9 % Sodium Chloride Flush 3 ML SYRINGE IVFLUSH ×2 (08:57→17:47)
[2022-05-08] MEDS: Heparin Sodium,Porcine 5,000 UNIT/ML VIAL 5000 UNIT SUBCUT ×2 (08:57→21:07)
[2022-05-08] MEDS: Insulin Lispro 100 UNIT/ML 3 ML VIAL SUBCUT ×4 (08:57→21:07)
[2022-05-08 09:42] LABS: Glucose, Whole Blood 266 mg/dL (60-115)
--- NOTE | 2022-05-08 11:16 | PC.NURSE ---
Pt taken to IR at this time for paracentesis.
[2022-05-08] MEDS: Lidocaine HCl 1 % MPF 5 ML VIAL SUBCUT (12:16)
[2022-05-08 13:04] LABS: WBC Peritoneal Fluid 0.804 X10*3/uL
[2022-05-08 13:05] LABS: RBC Peritoneal Fluid < 0.002 X10*6/uL
[2022-05-08 13:10] LABS: Glucose, Whole Blood 351 mg/dL (60-115)
[2022-05-08 13:38] LABS: BF Shift QC OK YES; Lymphocyte Peritoneal Fl 34 %; Monocytes Peritoneal Fl 9 %; Neutrophils Peritoneal Fluid 55 %; Other Peritioneal Fl 2 %
--- NOTE | 2022-05-08 14:45 | PC.NURSE ---
Pt cleanedof urine. Full bed change and new purewick provided.
[2022-05-08 15:59] LABS: Glucose, Whole Blood 433 mg/dL (60-115)
[2022-05-08 17:46] LABS: Glucose Peritoneal Fluid 288 MG/DL; LDH Peritoneal Fluid 99 U/L; Total Protein Peritoneal Fluid 2.2 GM/DL
--- NOTE | 2022-05-08 18:50 | HO.PM.IMPN ---
Subjective Subjective Date of Service: 05/09/22 Interval History: abd pain Review of Systems still has abd pain, denies any nausea vomiting or fever chills Physical Exam Vital Signs: Vital Signs: Last Vital Signs Temp 97.2 F 05/08/22 16:34 Pulse 84 05/08/22 16:34 Resp 14 05/08/22 16:34 BP 102/60 05/08/22 16:34 Pulse Ox 99 05/08/22 16:34 O2 Del Method 05/08/22 16:34 BMI result Body Mass Index 29.1 Appearance: Alert.? Oriented X3.?still has abd pain?. cvs: rrr, [id number] , no murmur res: clear to auscultation ,no rhonchii or wheezing abd: no rebound or guarding ,abd pain, bs present. ext pulses present , no cyanosis. neuro: axo3 , nonfocal. Objective Data Active Medications Acetaminophen (Acetaminophen 325 Mg Tablet) 650 mg PO Q12H PRN PRN Reason: Pain, Mild (Pain Scale 1-3) Dextrose (Dextrose 50 % 25 Gm/50 Ml Syringe) 25 gm IVPUSH Q15M PRN; Protocol PRN Reason: per Hypoglycemia Standing Ord. Docusate Sodium (Docusate Sodium 100 Mg Capsule) 100 mg PO DAILY PRN PRN Reason: Constipation Glucose (Glucose Gel 15 Gm Gel..Gram.) 15 gm PO Q15M PRN; Protocol PRN Reason: per Hypoglycemia Standing Ord. Heparin Sodium (Porcine) (Heparin Sodium,Porcine 5,000 Unit/Ml Vial) 5,000 unit SUBCUT Q12H [facility] Last Admin: 05/08/22 08:57 Dose: 5,000 unit Documented By: KIRAN Ceftriaxone Sodium 1 gm/ (Sodium Chloride) 50 mls @ 100 mls/hr IV Q24H [facility] Last Infusion: 05/08/22 02:59 Dose: 0 mls/hr Documented By: JELLY Insulin Human Lispro (Insulin Lispro 100 Unit/Ml 3 Ml Vial) 0 unit SUBCUT QIDACHS [facility]; Protocol Last Admin: 05/08/22 17:47 Dose: 10 unit Documented By: GM Morphine Sulfate (Morphine Sulfate 4 Mg/Ml Cartridge) 4 mg IVPUSH Q8H PRN; Protocol PRN Reason: Pain, Severe (Pain Scale 7-10) Last Admin: 05/08/22 18:35 Dose: 4 mg Documented By: GM Ondansetron HCl (Ondansetron Hcl 4 Mg/2 Ml Vial) 4 mg IVPUSH Q8H PRN PRN Reason: Nausea and Vomiting Sodium Chloride (0.9 % Sodium Chloride Flush 3 Ml Syringe) 3 ml IVFLUSH QSHIFT [facility] Last Admin: 05/08/22 17:47 Dose: 3 ml Documented By: GM Labs CBC & Chem 7: 05/08/22 04:27 05/08/22 04:27 Labs: Laboratory Results - last 24 hr 05/07/22 05/08/22 05/08/22 00:05 02:11 02:11 MCV MCH MCHC RDW Plt Count MPV Immature Gran % (Auto) Neut % (Auto) Lymph % (Auto) [place] % (Auto) Eos % (Auto) Baso % (Auto) Lymph # (Auto) [place] # (Auto) Eos # (Auto) Baso # (Auto) Abs Immat Gran (auto) Absolute Neuts (auto) Absolute Nucleated RBC Nucleated RBC % (auto) PT 18.2 H INR 1.6 H Anion Gap Estim Creat Clear Calc Estimated GFR POC Glucose Random Glucose Lactic Acid 2.4 H* 3.3 H* Lactic Acid F/U @ 2Hr Lactic Acid F/U @ 4Hr Calcium Urine Color Urine Appearance Urine pH Ur Specific [place] Urine Protein Urine Glucose (UA) Urine Ketones Urine Blood Urine Nitrite Ur Leukocyte Esterase Urine RBC Urine WBC Ur Squamous Epith Cells Urine Bacteria Hyaline Casts Peritoneal WBC Peritoneal RBC Periton Neutrophils Periton Lymphocytes Peritoneal Monocytes Peritoneal Other Cells Peritoneal Tot Protein Peritoneal LDH Peritoneal Glucose 05/08/22 05/08/22 05/08/22 04:27 04:27 04:27 MCV 97.2 MCH 32.3 MCHC 33.2 RDW 16.5 H Plt Count 157 L MPV 9.7 Immature Gran % (Auto) 0.5 H Neut % (Auto) 83.6 H Lymph % (Auto) 8.1 L [place] % (Auto) 7.4 Eos % (Auto) 0.0 Baso % (Auto) 0.4 Lymph # (Auto) 0.9 L [place] # (Auto) 0.8 Eos # (Auto) 0.0 Baso # (Auto) 0.0 Abs Immat Gran (auto) 0.06 H Absolute Neuts (auto) 9.2 H Absolute Nucleated RBC 0.000 Nucleated RBC % (auto) 0.0 PT INR Anion Gap 13 Estim Creat Clear Calc 51.4 Estimated GFR 44 POC Glucose Random Glucose 298 H Lactic Acid Lactic Acid F/U @ 2Hr 2.3 H* Lactic Acid F/U @ 4Hr Calcium 7.7 L D Urine Color Urine Appearance Urine pH Ur Specific [place] Urine Protein Urine Glucose (UA) Urine Ketones Urine Blood Urine Nitrite Ur Leukocyte Esterase Urine RBC Urine WBC Ur Squamous Epith Cells Urine Bacteria Hyaline Casts Peritoneal WBC Peritoneal RBC Periton Neutrophils Periton Lymphocytes Peritoneal Monocytes Peritoneal Other Cells Peritoneal Tot Protein Peritoneal LDH Peritoneal Glucose 05/08/22 05/08/22 05/08/22 04:43 07:04 08:17 MCV MCH MCHC RDW Plt Count MPV Immature Gran % (Auto) Neut % (Auto) Lymph % (Auto) [place] % (Auto) Eos % (Auto) Baso % (Auto) Lymph # (Auto) [place] # (Auto) Eos # (Auto) Baso # (Auto) Abs Immat Gran (auto) Absolute Neuts (auto) Absolute Nucleated RBC Nucleated RBC % (auto) PT INR Anion Gap Estim Creat Clear Calc Estimated GFR POC Glucose 266 H Random Glucose Lactic Acid Lactic Acid F/U @ 2Hr Lactic Acid F/U @ 4Hr 1.9 Calcium Urine Color Dark Yellow Urine Appearance Clear Urine pH 7.5 Ur Specific [place] 1.020 Urine Protein Trace Urine Glucose (UA) Negative Urine Ketones Negative Urine Blood Negative Urine Nitrite Negative Ur Leukocyte Esterase Small (1+) H Urine RBC 0-2 Urine WBC 6-10 H Ur Squamous Epith Cells 3-5 Urine Bacteria None Seen Hyaline Casts 0-2 Peritoneal WBC Peritoneal RBC Periton Neutrophils Periton Lymphocytes Peritoneal Monocytes Peritoneal Other Cells Peritoneal Tot Protein Peritoneal LDH Peritoneal Glucose 05/08/22 05/08/22 05/08/22 11:50 11:50 13:07 MCV MCH MCHC RDW Plt Count MPV Immature Gran % (Auto) Neut % (Auto) Lymph % (Auto) [place] % (Auto) Eos % (Auto) Baso % (Auto) Lymph # (Auto) [place] # (Auto) Eos # (Auto) Baso # (Auto) Abs Immat Gran (auto) Absolute Neuts (auto) Absolute Nucleated RBC Nucleated RBC % (auto) PT INR Anion Gap Estim Creat Clear Calc Estimated GFR POC Glucose 351 H* Random Glucose Lactic Acid Lactic Acid F/U @ 2Hr Lactic Acid F/U @ 4Hr Calcium Urine Color Urine Appearance Urine pH Ur Specific [place] Urine Protein Urine Glucose (UA) Urine Ketones Urine Blood Urine Nitrite Ur Leukocyte Esterase Urine RBC Urine WBC Ur Squamous Epith Cells Urine Bacteria Hyaline Casts Peritoneal WBC 0.804 Peritoneal RBC < 0.002 Periton Neutrophils 55 Periton Lymphocytes 34 Peritoneal Monocytes 9 Peritoneal Other Cells 2 Peritoneal Tot Protein 2.2 Peritoneal LDH 99 Peritoneal Glucose 288 05/08/22 15:56 MCV MCH MCHC RDW Plt Count MPV Immature Gran % (Auto) Neut % (Auto) Lymph % (Auto) [place] % (Auto) Eos % (Auto) Baso % (Auto) Lymph # (Auto) [place] # (Auto) Eos # (Auto) Baso # (Auto) Abs Immat Gran (auto) Absolute Neuts (auto) Absolute Nucleated RBC Nucleated RBC % (auto) PT INR Anion Gap Estim Creat Clear Calc Estimated GFR POC Glucose 433 H* Random Glucose Lactic Acid Lactic Acid F/U @ 2Hr Lactic Acid F/U @ 4Hr Calcium Urine Color Urine Appearance Urine pH Ur Specific [place] Urine Protein Urine Glucose (UA) Urine Ketones Urine Blood Urine Nitrite Ur Leukocyte Esterase Urine RBC Urine WBC Ur Squamous Epith Cells Urine Bacteria Hyaline Casts Peritoneal WBC Peritoneal RBC Periton Neutrophils Periton Lymphocytes Peritoneal Monocytes Peritoneal Other Cells Peritoneal Tot Protein Peritoneal LDH Peritoneal Glucose Microbiology Microbiology Results: Microbiology 05/08/22 11:50 Gram Stain - Final Abdominal Fluid Assessment and Plan (1) UTI (urinary tract infection): Status: Acute (2) SBP (spontaneous bacterial peritonitis): Status: Acute (3) Abdominal pain: Status: Acute Plan 48-year-old female with past medical history of liver cirrhosis, and? recurrent admissions for increased ascites and therapeutic paracentesis presents to the hospital with abdominal pain #? abdominal pain -? concern for SBP, in the light of recent admission and E coli findings in the ascitic fluid -? patient has leukocytosis,? but afebrile -? elevated lactic acidosis -? at this time will treat with IV antibiotics based on previous sensitivity IR for paracentesis- s/p paracentesis . -pain control #? SBP -? given the abdominal pain, leukocytosis,? and previous results will treat with IV antibiotics -? follow cultures -? IR consulted-s/p paracentesis, still has abdominal pain added GI evaluation. #? UTI -? positive UA -? will treat with IV antibiotics as above -? follow cultures # history of hypertension - stable but on the low end - hold home antihypertensives # diabetes type 2 uncontrolled -hyperglycemia fs with adjusted sliding scale insulin - diabetic diet ?DVT prophylaxis:? Heparin subQ inpatient need:SBP needs IV antibiotics and paracentesis Quality Stroke Does the patient have a stroke diagnosis?: No VTE Prior VTE?: No VTE Risk Level:: Medical - moderate - high VTE Device Contraindication: Treatment Not Indicated VTE Drug Contraindication: N/A - Med Ordered
--- NOTE | 2022-05-08 19:50 | PC.NURSE ---
introduced self to patient. family at bedside, vital signs updated. pt resting comfortably, no current complaints or apparent distress. call raphael within reach. will continue to monitor.
[2022-05-08 21:04] LABS: Glucose, Whole Blood 424 mg/dL (60-115)
[2022-05-09] VITALS (7 sets, daily range): BP systolic 93–109; BP diastolic 56–73; PULSE 87–96; RESP 15–18; TEMP 36.1–36.8; O2SAT 93–97
[2022-05-09] MEDS: 0.9 % Sodium Chloride Flush 3 ML SYRINGE IVFLUSH ×3 (00:34→18:27)
[2022-05-09] MEDS: cefTRIAXone sodium 1 GM in 0.9 % Sodium Chloride 50 ML IV (01:01)
[2022-05-09] MEDS: oxyCODONE HCl Immed Release 5 MG TABLET PO (04:46)
[2022-05-09] MEDS: Morphine Sulfate 4 MG/ML CARTRIDGE IVPUSH (06:08)
[2022-05-09 07:10] LABS: Glucose, Whole Blood 320 mg/dL (60-115)
[2022-05-09] MEDS: Heparin Sodium,Porcine 5,000 UNIT/ML VIAL 5000 UNIT SUBCUT ×2 (07:16→19:54)
[2022-05-09] MEDS: Insulin Lispro 100 UNIT/ML 3 ML VIAL SUBCUT ×4 (07:16→21:22)
[2022-05-09] MEDS: Furosemide 40 MG TABLET PO (07:23)
[2022-05-09] MEDS: Insulin Glargine,Hum.rec.anlog 100 UNIT/ML 10 ML VIAL SUBCUT ×2 (10:39→18:27)
[2022-05-09] MEDS: carvediloL 3.125 MG TABLET PO (10:40)
[2022-05-09 12:18] LABS: Glucose, Whole Blood 369 mg/dL (60-115)
--- NOTE | 2022-05-09 12:41 | P.CDIC_ITS ---
CDI Concurrent Query Documentation Clarification: PHYSICIAN'S DOCUMENTATION REQUEST Date of Query: 05/09/22 1241 Patient Name: Alison Peck Admit Date: 05/08/22 Dear Doctor, A review of the medical record indicates additional documentation may be needed. Please review below and update the documentation accordingly. Clinical Indicators: The H&P and progress notes on 05/08/22 document a diagnosis of diabetes mellitus type II. Is there an additional diagnosis that correlates with these lab findings below: Risk Factors/Clinical Indicators/Treatments LABS: -POC on 05/08 - 433 -POC on 05/09 - Please clarify the following regarding Diabetes Mellitus (DM): Complications of DM: * Hyperglycemia * No complications of DM * Other complication ? please specify * Unable to determine Use of terms such as suspected, likely, concern for, or probable (associated with a specific diagnosis that is being evaluated, monitored, or treated as if it exists) are acceptable and can be coded in the inpatient setting, when documented at the time of discharge. Thank you, Eusebia House MS, RN, CCRN Extension: [phone] Please use your independent medical judgment in providing your response. THIS QUERY IS PART OF THE PERMANENT MEDICAL RECORD Provider Response: Other Other Diagnosis: dm type 2 uncontrolled.
--- NOTE | 2022-05-09 15:11 | MHC.CM.PN ---
IMM 05/09/22 Female 56 DX AB pain SBP Acites. Patient received a Paracentesis in IR. She lives with children. They assist with ADLs. A referral to [facility] has been made. Patient has CCA. VAX x2 DP home with CCA. Patients sister will provide transportation home.
--- NOTE | 2022-05-09 15:51 | HO.PM.IMPN ---
Subjective Subjective Date of Service: 05/09/22 Interval History: Abdominal pain -similar to yesterday, feeling weak Review of Systems Denies any nausea vomiting or diarrhea Physical Exam Vital Signs: Vital Signs: Last Vital Signs Temp 98.3 F 05/09/22 11:47 Pulse 96 05/09/22 11:47 Resp 16 05/09/22 11:47 BP 93/57 L 05/09/22 11:47 Pulse Ox 94 05/09/22 11:47 O2 Del Method 05/09/22 11:47 BMI result Body Mass Index 29.1 Appearance: Alert.? Oriented X3.?still has abd pain?. cvs: rrr, [id number] , no murmur res: clear to auscultation ,no rhonchii or wheezing abd: no rebound or guarding , diffuse abd pain, bs present. ext pulses present , no cyanosis. neuro: axo3 , nonfocal, generally weak Objective Data Active Medications Acetaminophen (Acetaminophen 325 Mg Tablet) 650 mg PO Q12H PRN PRN Reason: Pain, Mild (Pain Scale 1-3) Carvedilol (Carvedilol 3.125 Mg Tablet) 3.125 mg PO BID [facility]; Protocol Last Admin: 05/09/22 10:40 Dose: 3.125 mg Documented By: JESSIKA Dextrose (Dextrose 50 % 25 Gm/50 Ml Syringe) 25 gm IVPUSH Q15M PRN; Protocol PRN Reason: per Hypoglycemia Standing Ord. Docusate Sodium (Docusate Sodium 100 Mg Capsule) 100 mg PO DAILY PRN PRN Reason: Constipation Furosemide (Furosemide 40 Mg Tablet) 40 mg PO DAILY [facility]; Protocol Last Admin: 05/09/22 07:23 Dose: 40 mg Documented By: JESSIKA Glucose (Glucose Gel 15 Gm Gel..Gram.) 15 gm PO Q15M PRN; Protocol PRN Reason: per Hypoglycemia Standing Ord. Heparin Sodium (Porcine) (Heparin Sodium,Porcine 5,000 Unit/Ml Vial) 5,000 unit SUBCUT Q12H [facility] Last Admin: 05/09/22 07:16 Dose: 5,000 unit Documented By: JESSIKA Ceftriaxone Sodium 1 gm/ (Sodium Chloride) 50 mls @ 100 mls/hr IV Q24H [facility] Last Infusion: 05/09/22 02:07 Dose: 0 mls/hr Documented By: RIOS Albumin Human (Kedbumin 25 %) 50 mls @ 100 mls/hr IV ONCE ONE Stop: 05/09/22 16:19 Insulin Glargine (Insulin Glargine,Hum.Rec.Anlog 100 Unit/Ml 10 Ml Vial) 20 unit SUBCUT BEDTIME [facility] Insulin Human Lispro (Insulin Lispro 100 Unit/Ml 3 Ml Vial) 0 unit SUBCUT QIDACHS [facility]; Protocol Last Admin: 05/09/22 12:16 Dose: 16 unit Documented By: JESSIKA Morphine Sulfate (Morphine Sulfate 4 Mg/Ml Cartridge) 4 mg IVPUSH Q8H PRN; Protocol PRN Reason: Pain, Severe (Pain Scale 7-10) Last Admin: 05/09/22 06:08 Dose: 4 mg Documented By: MARLON Ondansetron HCl (Ondansetron Hcl 4 Mg/2 Ml Vial) 4 mg IVPUSH Q8H PRN PRN Reason: Nausea and Vomiting Oxycodone HCl (Oxycodone Hcl Immed Release 5 Mg Tablet) 5 mg PO Q4H PRN PRN Reason: Pain, Severe (Pain Scale 7-10) Last Admin: 05/09/22 04:46 Dose: 5 mg Documented By: MARLON Sodium Chloride (0.9 % Sodium Chloride Flush 3 Ml Syringe) 3 ml IVFLUSH [facility] Last Admin: 05/09/22 07:23 Dose: 3 ml Documented By: JESSIKA Labs CBC & Chem 7: 05/08/22 04:27 05/08/22 04:27 Labs: Laboratory Results - last 24 hr 05/08/22 05/08/22 05/08/22 11:50 15:56 21:00 POC Glucose 433 H* 424 H* Peritoneal Tot Protein 2.2 Peritoneal LDH 99 Peritoneal Glucose 288 05/09/22 05/09/22 06:58 12:08 POC Glucose 320 H 369 H* Peritoneal Tot Protein Peritoneal LDH Peritoneal Glucose Microbiology Microbiology Results: Microbiology 05/08/22 Unknown Urine Culture - Final Urine clean catch - Urine henderson top 05/08/22 11:50 Gram Stain - Final Abdominal Fluid Routine Culture - Preliminary No growth to date. Anaerobic Culture - Preliminary No growth to date. 05/08/22 00:05 Blood Culture - Preliminary Blood - Venous No growth after 24 hours. 05/07/22 23:54 Blood Culture - Preliminary Blood - Venous No growth after 24 hours. Assessment and Plan (1) SBP (spontaneous bacterial peritonitis): Status: Acute (2) Abdominal pain: Status: Acute (3) UTI (urinary tract infection): Status: Acute Plan 48-year-old female with past medical history of liver cirrhosis, and? recurrent admissions for increased ascites and therapeutic paracentesis presents to the hospital with abdominal pain #? abdominal pain -? concern for SBP, in the light of recent admission and E coli findings in the ascitic fluid -? patient has leukocytosis,? but afebrile -? elevated lactic acidosis-resolved. paracentesis :possible sbp ,blood culture and ascitis culutures pending, removed around 2liter fluids acitis fluid albumin/protein low-added albumin -continue IV antibiotics based on previous sensitivity,pain control GI eval #? SBP -? given the abdominal pain, leukocytosis,? and previous results will treat with IV antibiotics -? follow cultures s /p paracentesis, still has abdominal pain added GI evaluation. removed around 2liter fluids , holdlasix. #? UTI -? positive UA -? will treat with IV antibiotics as above -? follow cultures-<10k,will repeat urine cultures. # history of hypertension - stable but on the low end - hold home antihypertensives and lasix # diabetes type 2 uncontrolled -hyperglycemia fs with adjusted sliding scale insulin and adjusted lantus - diabetic diet ?DVT prophylaxis:? Heparin subQ inpatient need:SBP needs? IV antibiotics and paracentesis,uncontrolled dm. Quality Stroke Does the patient have a stroke diagnosis?: No VTE Prior VTE?: No VTE Risk Level:: Medical - moderate - high VTE Device Contraindication: Treatment Not Indicated VTE Drug Contraindication: N/A - Med Ordered
[2022-05-09] MEDS: Albumin Human 25 % 50 ML 100 ML IV (17:11)
[2022-05-09] MEDS: Lactated Ringers 500 ML 100 ML IVCONT ×2 (17:48→22:56)
--- NOTE | 2022-05-09 18:22 | PC.NURSE ---
POC at lunch 369. Dr Rothman aware, no additional insulin ordered
[2022-05-09 18:28] LABS: Glucose, Whole Blood 414 mg/dL (60-115)
--- NOTE | 2022-05-09 18:32 | PC.NURSE ---
POC 414. Dr Rothman aware, no additional insulin ordered at this time. Pt encouraged to drink water, water pitcher placed at bedside
--- NOTE | 2022-05-09 19:04 | PM.EVENT ---
Event Note Date of Service: 05/09/22 Event Note: GI Consult-Full note dictated Imp: 56 yo female known to me from recent admission from earlier this month. At that time she was treated for SBP due to E.coli. She had no other complications such as GI bleeding. After discharge she began having increasing abdominal pain and distention. Her current paracentesis of approx 2L revealed approx 450PMN's which is a great improvement from earlier this month. She is eating and breathing comfortably, she has had no GI bleeding, and does not appear to be encephalopathic. Rec: Continue antibiotics, but reconsult ID for guidance regarding po antibiotics and eventual intermediate maintenance regimen for SBP prophylaxis. I started her on some spironolactone and added a Na+ restriction to her diet. F/U chemistries. Thanks
[2022-05-09] MEDS: Spironolactone 25 MG TABLET 50 MG PO (19:53)
[2022-05-09 21:08] LABS: Glucose, Whole Blood 467 mg/dL (60-115)
--- NOTE | 2022-05-09 21:21 | CONS_ITS ---
DATE OF SERVICE: 05/09/2022 REASON FOR CONSULTATION: Cirrhosis, ascites, spontaneous bacterial peritonitis. HISTORY OF PRESENT ILLNESS: The patient is a 56-year-old female, known to me from a hospitalization just earlier this month when she was admitted with ascites and spontaneous bacterial peritonitis based on ascites white blood cell count and an eventual positive culture with E coli. While in the hospital earlier this month, she was treated with IV antibiotics and eventually improved with a decrease in her ascites white blood cells and an improvement in her overall clinical course. She does have cirrhosis of unclear etiology. She denies any significant history of alcohol use. She does have a family history of primary biliary cirrhosis in her mother who recently , although not from cirrhosis-related complications. This patient has been worked up for her liver disease and this has all been negative including autoimmune studies and antimitochondrial antibodies. During her hospitalization earlier this month, she was treated with antibiotics and was discharged just a few days ago. Since being home, she describes some increasing abdominal girth and discomfort, which prompted her to come back to the ER. She denies any definitive fevers. She has had no bleeding. Since being here in the hospital, she does feel somewhat better. She has been eating comfortably. She denies any nausea, vomiting, nor diarrhea. She denies any hematochezia, nor melena. She has not had any obvious confusion. She did have a paracentesis earlier this week with removal of 2 L of fluid. MEDICATIONS: Her present medications include oxycodone p.r.n., Zofran p.r.n., morphine p.r.n., insulin, subcu heparin, Colace p.r.n., IV ceftriaxone, carvedilol. PAST MEDICAL HISTORY: Cirrhosis of unclear etiology with complications including ascites and the recent episode of spontaneous bacterial peritonitis. Diabetes mellitus. She denies history of MS, stroke, lung disease, or kidney disease. PAST SURGICAL HISTORY: Surgery includes the chronic ulcer in the right inner thigh and perineal area debrided by Dr. Ash. SOCIAL HISTORY: She lives with her family. She does not smoke and denies any alcohol use. FAMILY HISTORY: Mother with primary biliary cirrhosis. REVIEW OF SYSTEMS: CONSTITUTIONAL: She presently feels fairly well and has been eating comfortably. At home, she was feeling tired and uncomfortable in regard to the abdominal discomfort. CARDIAC: No chest pain. PULMONARY: No cough. No hemoptysis. GI: As above. PHYSICAL EXAMINATION: GENERAL: The patient is a pleasant, alert, comfortable-appearing female. EYES: Anicteric sclerae. NECK: Supple. ABDOMEN: Distended with ascites, but fairly soft. There is mild diffuse tenderness. Bowel sounds are normal. There is no palpable mass. EXTREMITIES: Without edema. NEUROLOGIC: She seems to be alert, oriented, answering questions appropriately, and without any obvious asterixis. LABORATORY DATA: CT scan revealed cirrhosis, but no evidence of any focal liver lesion. Multiple gallstones were present, but without any biliary obstruction. The CT scan describes a normal spleen and pancreas. Her abdominal ultrasound paracentesis revealed ascites and 2.2 L of clear yellow fluid were withdrawn. The ascites cell count was 804 wbc's with 55% neutrophils for total neutrophil count of 442. White blood cell count today is 11.0 with hemoglobin 11.4, platelets 157,000. PT 18.2 with INR 1.6. Sodium 130 on May 07 and 133 yesterday. BUN 17, creatinine 1.2. AST 23, ALT 11, alkaline phosphatase 121, albumin 2.4. IMPRESSION: The patient is a 56-year-old female, recuperating from a recent episode of spontaneous bacterial peritonitis confirmed by her ascites white blood cell count and culture positive for E coli. She has improved clinically, although did come back to the hospital due to some increasing ascites and abdominal discomfort. A paracentesis from earlier this week shows a borderline white blood cell count in regard to meeting parameters for spontaneous bacterial peritonitis. Nonetheless, given her history, I would certainly continue antibiotics. She was seen by Dr. Donald from Infectious Disease during her last admission and I would recommend she be reconsulted to help guide her antibiotics both here in the hospital and long-term in regard to spontaneous bacterial peritonitis prophylaxis. At this point, her liver disease appears to be otherwise stable without any sign of GI bleeding, jaundice, nor encephalopathy. I would start her on a low dose of aldactone and sodium restrict her diet. I will continue to follow her chemistries. Her diuretics can be increased as long as her renal function and electrolytes remain stable. She should avoid all aspirin and NSAIDs. Of note, during her hospitalization earlier this month, I did speak to her about potential referral to a transplant center given her advanced liver disease and no history of alcohol use. However, she told me when I discussed this with her earlier in the month that she did not want to consider that. Obviously, if she changes her mind, I think that would be a good idea given her relatively young age. MD TYSON Mcgovern/LYNDSEY / [id number] MTDD
[2022-05-09] MEDS: Insulin Glargine,Hum.rec.anlog 100 UNIT/ML 10 ML VIAL 20 UNIT SUBCUT (21:22)
--- NOTE | 2022-05-09 23:08 | PC.NURSE ---
2100 bedtime poc 467, Dr. Alonzo notified via [facility]. Patient received 16 units humalog per sliding scale and scheduled 20 units lantus. No new orders at this time. Continue to encourage patient to drink water.
[2022-05-10] VITALS (7 sets, daily range): BP systolic 91–127; BP diastolic 45–67; PULSE 84–97; RESP 12–20; TEMP 35.9–37.8; O2SAT 93–95
[2022-05-10] MEDS: 0.9 % Sodium Chloride Flush 3 ML SYRINGE IVFLUSH ×4 (00:16→23:05)
[2022-05-10] MEDS: Albumin Human 25 % 50 ML 100 ML IV ×4 (00:16→21:45)
[2022-05-10] MEDS: cefTRIAXone sodium 1 GM in 0.9 % Sodium Chloride 50 ML IV (02:03)
[2022-05-10] MEDS: Morphine Sulfate 4 MG/ML CARTRIDGE IVPUSH ×3 (03:16→21:40)
[2022-05-10] MEDS: Lactated Ringers 500 ML 100 ML IVCONT ×5 (03:16→23:02)
[2022-05-10 07:32] LABS: Glucose, Whole Blood 282 mg/dL (60-115)
[2022-05-10 07:39] LABS: Anion Gap 12 (12-20); Blood Urea Nitrogen 17 mg/dL (9-16); Calcium 7.6 mg/dL (8.4-10.2); Carbon Dioxide 25 mmol/L (22-29); Chloride 98 mmol/L (96-108); Creatinine Clr Calc Pharmacy 59.6; Estimated Glomerular Filt Rate 53; Glucose Random 329 mg/dL (60-115); Potassium 4.6 mmol/L (3.3-5.1); Sodium 130 mmol/L (135-145)
[2022-05-10] MEDS: ondansetron HCL 4 MG/2 ML VIAL IVPUSH ×2 (09:16→21:34)
[2022-05-10] MEDS: Spironolactone 25 MG TABLET 50 MG PO (09:16)
[2022-05-10] MEDS: Heparin Sodium,Porcine 5,000 UNIT/ML VIAL 5000 UNIT SUBCUT ×2 (09:16→21:30)
[2022-05-10] MEDS: Insulin Lispro 100 UNIT/ML 3 ML VIAL SUBCUT ×4 (09:17→21:31)
[2022-05-10] MEDS: oxyCODONE HCl Immed Release 5 MG TABLET PO (09:33)
--- NOTE | 2022-05-10 11:37 | PC.NURSE ---
Report given to Arie PEREZ's assuming care of patient at this time. birth attendant paged.
[2022-05-10 12:30] LABS: Glucose, Whole Blood 377 mg/dL (60-115)
--- NOTE | 2022-05-10 15:10 | HO.PM.IMPN ---
Subjective Subjective Date of Service: 05/11/22 Interval History: Abdominal pain -minimum improvement , feeling weak Review of Systems Denies any nausea vomiting or diarrhea or fever or chills. Physical Exam Vital Signs: Vital Signs: Last Vital Signs Temp 99.1 F 05/10/22 12:00 Pulse 85 05/10/22 12:00 Resp 20 05/10/22 12:00 BP 102/58 L 05/10/22 12:00 Pulse Ox 93 05/10/22 12:00 O2 Del Method 05/10/22 12:00 BMI result Body Mass Index 29.1 Appearance: Alert.? Oriented X3.?still has abd pain?. cvs: rrr, [id number] , no murmur res: clear to auscultation ,no rhonchii or wheezing abd: no rebound or guarding , diffuse abd pain, bs present. ext pulses present , no cyanosis. neuro: axo3 , nonfocal, generally weak Objective Data Active Medications Acetaminophen (Acetaminophen 325 Mg Tablet) 650 mg PO Q12H PRN PRN Reason: Pain, Mild (Pain Scale 1-3) Carvedilol (Carvedilol 3.125 Mg Tablet) 3.125 mg PO BID [facility]; Protocol Last Admin: 05/09/22 10:40 Dose: 3.125 mg Documented By: JESSIKA Dextrose (Dextrose 50 % 25 Gm/50 Ml Syringe) 25 gm IVPUSH Q15M PRN; Protocol PRN Reason: per Hypoglycemia Standing Ord. Docusate Sodium (Docusate Sodium 100 Mg Capsule) 100 mg PO DAILY PRN PRN Reason: Constipation Glucose (Glucose Gel 15 Gm Gel..Gram.) 15 gm PO Q15M PRN; Protocol PRN Reason: per Hypoglycemia Standing Ord. Heparin Sodium (Porcine) (Heparin Sodium,Porcine 5,000 Unit/Ml Vial) 5,000 unit SUBCUT Q12H [facility] Last Admin: 05/10/22 09:16 Dose: 5,000 unit Documented By: DEMETRIO-ELLALA Ceftriaxone Sodium 1 gm/ (Sodium Chloride) 50 mls @ 100 mls/hr IV Q24H [facility] Last Infusion: 05/10/22 05:04 Dose: 0 mls/hr Documented By: CAMRYN Lactated Ringer's (Lr) 500 mls @ 100 mls/hr IVCONT .Q5H [facility] Last Admin: 05/10/22 09:34 Dose: 100 mls/hr Documented By: ISATU Albumin Human (Kedbumin 25 %) 50 mls @ 100 mls/hr IV Q6H [facility] Stop: 05/10/22 18:29 Last Infusion: 05/10/22 09:30 Dose: 0 mls/hr Documented By: ISATU Insulin Glargine (Insulin Glargine,Hum.Rec.Anlog 100 Unit/Ml 10 Ml Vial) 25 unit SUBCUT BEDTIME [facility] Insulin Human Lispro (Insulin Lispro 100 Unit/Ml 3 Ml Vial) 0 unit SUBCUT QIDACHS [facility]; Protocol Last Admin: 05/10/22 13:37 Dose: 16 unit Documented By: ESPERANZA Morphine Sulfate (Morphine Sulfate 4 Mg/Ml Cartridge) 4 mg IVPUSH Q8H PRN; Protocol PRN Reason: Pain, Severe (Pain Scale 7-10) Last Admin: 05/10/22 11:44 Dose: 4 mg Documented By: ISATU Ondansetron HCl (Ondansetron Hcl 4 Mg/2 Ml Vial) 4 mg IVPUSH Q8H PRN PRN Reason: Nausea and Vomiting Last Admin: 05/10/22 09:16 Dose: 4 mg Documented By: ISATU Oxycodone HCl (Oxycodone Hcl Immed Release 5 Mg Tablet) 5 mg PO Q4H PRN PRN Reason: Pain, Severe (Pain Scale 7-10) Last Admin: 05/10/22 09:33 Dose: 5 mg Documented By: ISATU Sodium Chloride (0.9 % Sodium Chloride Flush 3 Ml Syringe) 3 ml IVFLUSH [facility] Last Admin: 05/10/22 09:16 Dose: 3 ml Documented By: ISATU Spironolactone (Spironolactone 25 Mg Tablet) 25 mg PO BID@0900,1800 [facility]; Protocol Labs CBC & Chem 7: 05/08/22 04:27 05/10/22 06:57 Labs: Laboratory Results - last 24 hr 05/09/22 05/09/22 05/10/22 18:20 20:58 06:57 Anion Gap 12 Estim Creat Clear Calc 59.6 Estimated GFR 53 POC Glucose 414 H* 467 H* Random Glucose 329 H Calcium 7.6 L 05/10/22 05/10/22 07:29 12:20 Anion Gap Estim Creat Clear Calc Estimated GFR POC Glucose 282 H 377 H* Random Glucose Calcium Microbiology Microbiology Results: Microbiology 05/08/22 11:50 Gram Stain - Final Abdominal Fluid Routine Culture - Final No growth after 2 days Anaerobic Culture - Preliminary No growth to date. 05/08/22 00:05 Blood Culture - Preliminary Blood - Venous No growth after 48 hours. 05/07/22 23:54 Blood Culture - Preliminary Blood - Venous No growth after 48 hours. 05/08/22 Unknown Urine Culture - Final Urine clean catch - Urine henderson top Assessment and Plan (1) SBP (spontaneous bacterial peritonitis): Status: Acute Plan 48-year-old female with past medical history of liver cirrhosis, and? recurrent admissions for increased ascites and therapeutic paracentesis presents to the hospital with abdominal pain #? abdominal pain -? concern for SBP, in the light of recent admission and E coli findings in the ascitic fluid -? patient has leukocytosis,? but afebrile -? elevated lactic acidosis-resolved. paracentesis :possible sbp ,blood culture and ascitis culutures pending, removed around 2liter fluids acitis fluid albumin/protein low-added albumin -continue IV antibiotics based on previous sensitivity,pain control GI eval- continue above management -recomended Id eval. #? SBP -? given the abdominal pain, leukocytosis,? and previous results will treat with IV antibiotics -? follow cultures s /p paracentesis, still has abdominal pain added GI evaluation. removed around 2liter fluids , holdlasix. #? UTI -? positive UA -? will treat with IV antibiotics as above -? follow cultures-<10k,will repeat urine cultures. # history of hypertension - stable but on the low end - hold home antihypertensives and lasix # diabetes type 2 uncontrolled -hyperglycemia fs with adjusted sliding scale insulin and adjusted lantus - diabetic diet ?DVT prophylaxis:? Heparin subQ inpatient need:SBP needs? IV antibiotics and paracentesis,uncontrolled dm. Quality Stroke Does the patient have a stroke diagnosis?: No VTE Prior VTE?: No VTE Risk Level:: Medical - moderate - high VTE Device Contraindication: Treatment Not Indicated VTE Drug Contraindication: N/A - Med Ordered
[2022-05-10 16:03] LABS: Glucose, Whole Blood 244 mg/dL (60-115)
[2022-05-10] MEDS: Spironolactone 25 MG TABLET PO (18:50)
[2022-05-10 20:06] LABS: Glucose, Whole Blood 253 mg/dL (60-115)
[2022-05-10] MEDS: Insulin Glargine,Hum.rec.anlog 100 UNIT/ML 10 ML VIAL 25 UNIT SUBCUT (21:31)
[2022-05-11] MEDS: cefTRIAXone sodium 1 GM in 0.9 % Sodium Chloride 50 ML IV (03:01)
[2022-05-11] MEDS: oxyCODONE HCl Immed Release 5 MG TABLET PO ×3 (03:45→21:41)
[2022-05-11 03:49] VITALS: BP 111/62; PULSE 89; RESP 20; TEMP 36.7; O2SAT 93
[2022-05-11] MEDS: Lactated Ringers 500 ML 100 ML IVCONT (05:07)
[2022-05-11] MEDS: Morphine Sulfate 4 MG/ML CARTRIDGE IVPUSH (06:09)
[2022-05-11] MEDS: ondansetron HCL 4 MG/2 ML VIAL IVPUSH (06:09)
[2022-05-11 07:33] LABS: Glucose, Whole Blood 317 mg/dL (60-115)
[2022-05-11 07:53] VITALS: BP 117/56; PULSE 82; RESP 12; TEMP 36.8; O2SAT 95
[2022-05-11] MEDS: Heparin Sodium,Porcine 5,000 UNIT/ML VIAL 5000 UNIT SUBCUT ×2 (08:40→21:42)
[2022-05-11] MEDS: Insulin Glargine,Hum.rec.anlog 100 UNIT/ML 10 ML VIAL 10 UNIT SUBCUT (08:41)
[2022-05-11] MEDS: Insulin Lispro 100 UNIT/ML 3 ML VIAL SUBCUT ×7 (08:41→21:42)
[2022-05-11] MEDS: 0.9 % Sodium Chloride Flush 3 ML SYRINGE IVFLUSH ×3 (08:44→21:43)
[2022-05-11] MEDS: Spironolactone 25 MG TABLET PO (08:44)
[2022-05-11 11:26] VITALS: BP 97/56; PULSE 98; RESP 16; TEMP 36.7; O2SAT 95
[2022-05-11 11:32] LABS: Glucose, Whole Blood 214 mg/dL (60-115)
[2022-05-11] MEDS: Furosemide 20 MG TABLET PO (11:55)
[2022-05-11] MEDS: Albumin Human 25 % 50 ML 100 ML IV (11:58)
--- NOTE | 2022-05-11 14:15 | P.CNID_ITS ---
History of Present Illness Data of Consult Service Date: 05/11/22 Requesting physician: Krysten Rothman Primary Care Provider: Eden Carrillo MD HPI Reason for consult: abdominal pain She presents again with 04/28 abdominal fullness and pain . I saw her on 04/27 when she had SBP and E coli with 11,000 WBC in abdominal fluid. She has no fever or chills now WBC in abdominal fluid is down to 450 Review of Systems Review of Systems: Yes all other systems are reviewed and are negative [facility] Past Medical History Medical History Cirrhosis Cirrhosis Diabetes (~01/31/21) Diabetes mellitus with hyperglycemia HTN (hypertension) UTI due to extended-spectrum beta lactamase (ESBL) producing Escherichia coli Family History Family History Mother No problems noted. Father No problems noted. Social History Social History Household Members: Children Housing: House Do you presently have visiting nurse or other home services: No Alcohol intake: never Patient Tobacco Use Status: Never used Tobacco e-Cigarette/Vaping Use: Never Used Second Hand Smoke Exposure: No service: No Current occupational status: unemployed and disabled Cognitive needs: No Hearing needs: No Vision needs: No Meds Allergies Allergy/AdvReac Type Severity Reaction Status Date / Time No Known Allergies Allergy Verified 07/19/21 14:20 [No Known Allergies*] Active Medications: Current Medications Acetaminophen (Acetaminophen 325 Mg Tablet) 650 mg PO Q12H PRN PRN Reason: Pain, Mild (Pain Scale 1-3) Carvedilol (Carvedilol 3.125 Mg Tablet) 3.125 mg PO BID [facility]; Protocol Last Admin: 05/09/22 10:40 Dose: 3.125 mg Dextrose (Dextrose 50 % 25 Gm/50 Ml Syringe) 25 gm IVPUSH Q15M PRN; Protocol PRN Reason: per Hypoglycemia Standing Ord. Docusate Sodium (Docusate Sodium 100 Mg Capsule) 100 mg PO DAILY PRN PRN Reason: Constipation Furosemide (Furosemide 20 Mg Tablet) 20 mg PO DAILY [facility]; Protocol Last Admin: 05/11/22 11:55 Dose: 20 mg Glucose (Glucose Gel 15 Gm Gel..Gram.) 15 gm PO Q15M PRN; Protocol PRN Reason: per Hypoglycemia Standing Ord. Heparin Sodium (Porcine) (Heparin Sodium,Porcine 5,000 Unit/Ml Vial) 5,000 unit SUBCUT Q12H [facility] Last Admin: 05/11/22 08:40 Dose: 5,000 unit Ceftriaxone Sodium 1 gm/ (Sodium Chloride) 50 mls @ 100 mls/hr IV Q24H [facility] Last Infusion: 05/11/22 03:49 Dose: Infused Insulin Glargine (Insulin Glargine,Hum.Rec.Anlog 100 Unit/Ml 10 Ml Vial) 25 unit SUBCUT BEDTIME [facility] Last Admin: 05/10/22 21:31 Dose: 25 unit Insulin Glargine (Insulin Glargine,Hum.Rec.Anlog 100 Unit/Ml 10 Ml Vial) 10 unit SUBCUT DAILY [facility] Last Admin: 05/11/22 08:41 Dose: 10 unit Insulin Human Lispro (Insulin Lispro 100 Unit/Ml 3 Ml Vial) 0 unit SUBCUT QIDACHS [facility]; Protocol Last Admin: 05/11/22 11:55 Dose: 4 unit Insulin Human Lispro (Insulin Lispro 100 Unit/Ml 3 Ml Vial) 3 unit SUBCUT QIDACHS [facility] Last Admin: 05/11/22 12:09 Dose: 3 unit Morphine Sulfate (Morphine Sulfate 4 Mg/Ml Cartridge) 4 mg IVPUSH Q8H PRN; Protocol PRN Reason: Pain, Severe (Pain Scale 7-10) Last Admin: 05/11/22 06:09 Dose: 4 mg Ondansetron HCl (Ondansetron Hcl 4 Mg/2 Ml Vial) 4 mg IVPUSH Q8H PRN PRN Reason: Nausea and Vomiting Last Admin: 05/11/22 06:09 Dose: 4 mg Oxycodone HCl (Oxycodone Hcl Immed Release 5 Mg Tablet) 5 mg PO Q4H PRN PRN Reason: Pain, Severe (Pain Scale 7-10) Last Admin: 05/11/22 12:07 Dose: 5 mg Sodium Chloride (0.9 % Sodium Chloride Flush 3 Ml Syringe) 3 ml IVFLUSH QSHIFT [facility] Last Admin: 05/11/22 08:44 Dose: 3 ml Spironolactone (Spironolactone 25 Mg Tablet) 50 mg PO BID@0900,1800 [facility]; Protocol Home Medications Medication Instructions Recorded Confirmed Last Taken Type carvedilol 3.125 mg tablet 1 tab PO BID 04/25/22 05/08/22 05/07/22 History insulin aspart U-100 100 unit/mL See Protocol subcut TID 04/25/22 05/08/22 History (3 mL) subcutaneous pen (Novolog Flexpen U-100 Insulin aspart) insulin glargine 100 unit/mL (3 20 unit subcut BEDTIME 04/25/22 05/08/22 05/07/22 History mL) subcutaneous pen (Lantus Solostar U-100 Insulin) polyethylene glycol 3350 17 17 g PO DAILY 04/25/22 05/08/22 05/07/22 History gram/dose oral powder Physical Exam Vital Signs: Vital Signs: Last Vital Signs Temp 98.1 F 05/11/22 11:26 Pulse 98 05/11/22 11:26 Resp 16 05/11/22 11:26 BP 97/56 L 05/11/22 11:26 Pulse Ox 95 05/11/22 11:26 O2 Del Method 05/11/22 11:26 BMI result Body Mass Index 29.1 GI: Palpation (GI): Tenderness to palpation present (GI) Results Labs CBC & Chem 7: 05/08/22 04:27 05/10/22 06:57 Microbiology Microbiology Results: Microbiology 05/08/22 11:50 Abdominal Fluid Gram Stain - Final 05/08/22 11:50 Abdominal Fluid Routine Culture - Final No growth after 2 days 05/08/22 11:50 Abdominal Fluid Anaerobic Culture - Preliminary No growth to date. 05/08/22 00:05 Blood - Venous Blood Culture - Preliminary No growth after 48 hours. 05/07/22 23:54 Blood - Venous Blood Culture - Preliminary No growth after 48 hours. 05/08/22 Unknown Urine clean catch - Urine henderson top Urine Culture - Final Assessment and Plan (1) SBP (spontaneous bacterial peritonitis): Status: Acute It is improved with less WBC in abdominal fluid. She may have discomfort post infection lasting longer than bacteria are still viable (2) Abdominal distension: Status: Acute Plan May give Ceftriaxone or Levaquin for 5 days and then po Levaquin(still better po agent) 750 mg daily for 14 days and then every ,,Sat
[2022-05-11 14:33] VITALS: BP 97/56; PULSE 98; O2SAT 95
[2022-05-11 15:42] VITALS: BP 111/70; PULSE 92; RESP 20; TEMP 37; O2SAT 94
[2022-05-11 16:28] LABS: Glucose, Whole Blood 275 mg/dL (60-115)
[2022-05-11] MEDS: Spironolactone 25 MG TABLET 50 MG PO (16:46)
--- NOTE | 2022-05-11 17:38 | HO.PM.IMPN ---
Subjective Subjective Date of Service: 05/11/22 Interval History: abd pain Review of Systems Abdominal pain similar to yesterday Denies any chest pain or shortness of breath or fever or chills or nausea or vomiting. Physical Exam Vital Signs: Vital Signs: Last Vital Signs Temp 98.6 F 05/11/22 15:42 Pulse 92 05/11/22 15:42 Resp 20 05/11/22 15:42 BP 111/70 05/11/22 15:42 Pulse Ox 94 05/11/22 15:42 O2 Del Method 05/11/22 11:26 BMI result Body Mass Index 29.1 Appearance: Alert.? Oriented X3.?still has abd pain?. cvs: rrr, [id number] , no murmur res: clear to auscultation ,no rhonchii or wheezing abd: no rebound or guarding , diffuse abd pain, bs present. ext pulses present , no cyanosis. neuro: axo3 , nonfocal, generally weak Objective Data Active Medications Acetaminophen (Acetaminophen 325 Mg Tablet) 650 mg PO Q12H PRN PRN Reason: Pain, Mild (Pain Scale 1-3) Carvedilol (Carvedilol 3.125 Mg Tablet) 3.125 mg PO BID [facility]; Protocol Last Admin: 05/09/22 10:40 Dose: 3.125 mg Documented By: JESSIKA Dextrose (Dextrose 50 % 25 Gm/50 Ml Syringe) 25 gm IVPUSH Q15M PRN; Protocol PRN Reason: per Hypoglycemia Standing Ord. Docusate Sodium (Docusate Sodium 100 Mg Capsule) 100 mg PO DAILY PRN PRN Reason: Constipation Furosemide (Furosemide 20 Mg Tablet) 20 mg PO DAILY [facility]; Protocol Last Admin: 05/11/22 11:55 Dose: 20 mg Documented By: ESPERANZA Glucose (Glucose Gel 15 Gm Gel..Gram.) 15 gm PO Q15M PRN; Protocol PRN Reason: per Hypoglycemia Standing Ord. Heparin Sodium (Porcine) (Heparin Sodium,Porcine 5,000 Unit/Ml Vial) 5,000 unit SUBCUT Q12H [facility] Last Admin: 05/11/22 08:40 Dose: 5,000 unit Documented By: ESPERANZA Ceftriaxone Sodium 1 gm/ (Sodium Chloride) 50 mls @ 100 mls/hr IV Q24H [facility] Last Infusion: 05/11/22 03:49 Dose: 0 mls/hr Documented By: EDGAR Insulin Glargine (Insulin Glargine,Hum.Rec.Anlog 100 Unit/Ml 10 Ml Vial) 25 unit SUBCUT BEDTIME [facility] Last Admin: 05/10/22 21:31 Dose: 25 unit Documented By: EDGAR Insulin Glargine (Insulin Glargine,Hum.Rec.Anlog 100 Unit/Ml 10 Ml Vial) 10 unit SUBCUT DAILY [facility] Last Admin: 05/11/22 08:41 Dose: 10 unit Documented By: ESPERANZA Insulin Human Lispro (Insulin Lispro 100 Unit/Ml 3 Ml Vial) 0 unit SUBCUT QIDACHS [facility]; Protocol Last Admin: 05/11/22 16:45 Dose: 6 unit Documented By: ESPERANZA Insulin Human Lispro (Insulin Lispro 100 Unit/Ml 3 Ml Vial) 3 unit SUBCUT QIDACHS [facility] Last Admin: 05/11/22 16:46 Dose: 3 unit Documented By: ESPERANZA Morphine Sulfate (Morphine Sulfate 4 Mg/Ml Cartridge) 4 mg IVPUSH Q8H PRN; Protocol PRN Reason: Pain, Severe (Pain Scale 7-10) Last Admin: 05/11/22 06:09 Dose: 4 mg Documented By: EDGAR Ondansetron HCl (Ondansetron Hcl 4 Mg/2 Ml Vial) 4 mg IVPUSH Q8H PRN PRN Reason: Nausea and Vomiting Last Admin: 05/11/22 06:09 Dose: 4 mg Documented By: EDGAR Oxycodone HCl (Oxycodone Hcl Immed Release 5 Mg Tablet) 5 mg PO Q4H PRN PRN Reason: Pain, Severe (Pain Scale 7-10) Last Admin: 05/11/22 12:07 Dose: 5 mg Documented By: ESPERANZA Sodium Chloride (0.9 % Sodium Chloride Flush 3 Ml Syringe) 3 ml IVFLUSH [facility] Last Admin: 05/11/22 16:47 Dose: 3 ml Documented By: ESPERANZA Spironolactone (Spironolactone 25 Mg Tablet) 50 mg PO BID@0900,1800 [facility]; Protocol Last Admin: 05/11/22 16:46 Dose: 50 mg Documented By: ESPERANZA Labs CBC & Chem 7: 05/08/22 04:27 05/10/22 06:57 Labs: Laboratory Results - last 24 hr 05/10/22 05/11/22 05/11/22 19:51 07:28 11:22 POC Glucose 253 H 317 H 214 H 05/11/22 16:22 POC Glucose 275 H Microbiology Microbiology Results: Microbiology 05/08/22 11:50 Gram Stain - Final Abdominal Fluid Routine Culture - Final No growth after 2 days Anaerobic Culture - Preliminary No growth to date. Assessment and Plan (1) SBP (spontaneous bacterial peritonitis): Status: Acute Plan 48-year-old female with past medical history of liver cirrhosis, and? recurrent admissions for increased ascites and therapeutic paracentesis presents to the hospital with abdominal pain #? abdominal pain -? concern for SBP, in the light of recent admission and E coli findings in the ascitic fluid -? patient has leukocytosis,? but afebrile -? elevated lactic acidosis-resolved. paracentesis :possible sbp ,blood culture and ascitis culutures pending, removed around 2liter fluids acitis fluid albumin/protein low-added albumin -continue IV antibiotics based on previous sensitivity,pain control GI eval- continue above management -recomended Id eval pending #? SBP -? given the abdominal pain, leukocytosis,? and previous results will treat with IV antibiotics -? follow cultures s /p paracentesis, still has abdominal pain added GI evaluation. removed around 2liter fluids , holdlasix. #? UTI -? positive UA -? will treat with IV antibiotics as above -? follow cultures-<10k,will repeat urine cultures. # history of hypertension - stable but on the low end - hold home antihypertensives and lasix # diabetes type 2 uncontrolled -hyperglycemia fs with adjusted sliding scale insulin and adjusted lantus - diabetic diet PT eval ?DVT prophylaxis:? Heparin subQ inpatient need:SBP needs? IV antibiotics and paracentesis,uncontrolled dm. Quality Stroke Does the patient have a stroke diagnosis?: No VTE Prior VTE?: No VTE Risk Level:: Medical - moderate - high VTE Device Contraindication: Treatment Not Indicated VTE Drug Contraindication: N/A - Med Ordered
[2022-05-11 20:00] VITALS: BP 104/65; PULSE 92; RESP 20; TEMP 36.9; O2SAT 95
[2022-05-11] MEDS: Insulin Glargine,Hum.rec.anlog 100 UNIT/ML 10 ML VIAL 25 UNIT SUBCUT (21:42)
[2022-05-11 21:55] LABS: Glucose, Whole Blood 310 mg/dL (60-115)
[2022-05-12] MEDS: cefTRIAXone sodium 1 GM in 0.9 % Sodium Chloride 50 ML IV (01:55)
[2022-05-12] MEDS: oxyCODONE HCl Immed Release 5 MG TABLET PO ×2 (01:56→06:46)
[2022-05-12 07:23] LABS: Glucose, Whole Blood 222 mg/dL (60-115)
[2022-05-12] MEDS: Insulin Glargine,Hum.rec.anlog 100 UNIT/ML 10 ML VIAL 10 UNIT SUBCUT (07:38)
[2022-05-12] MEDS: Insulin Lispro 100 UNIT/ML 3 ML VIAL SUBCUT ×8 (07:39→20:16)
[2022-05-12] MEDS: Heparin Sodium,Porcine 5,000 UNIT/ML VIAL 5000 UNIT SUBCUT ×2 (07:40→20:16)
[2022-05-12] MEDS: Furosemide 20 MG TABLET PO (07:46)
[2022-05-12] MEDS: Spironolactone 25 MG TABLET 50 MG PO ×2 (07:46→16:49)
[2022-05-12 07:53] VITALS: BP 110/60; PULSE 87; RESP 16; TEMP 36.8; O2SAT 94
[2022-05-12 10:11] LABS: Anion Gap 18 (12-20); Blood Urea Nitrogen 15 mg/dL (9-16); Calcium 8.1 mg/dL (8.4-10.2); Carbon Dioxide 24 mmol/L (22-29); Chloride 95 mmol/L (96-108); Creatinine Clr Calc Pharmacy 53.6; Estimated Glomerular Filt Rate 47; Glucose Random 329 mg/dL (60-115); Potassium 4.7 mmol/L (3.3-5.1); Sodium 132 mmol/L (135-145)
[2022-05-12 11:06] VITALS: BP 103/68; PULSE 91; RESP 18; TEMP 36.4; O2SAT 93
[2022-05-12 11:17] LABS: Glucose, Whole Blood 343 mg/dL (60-115)
--- NOTE | 2022-05-12 13:48 | P.PNIM_ITS ---
Subjective Subjective Date of Service: 05/12/22 Interval History: abd pain Review of Systems Abdominal pain similar to yesterday Denies any chest pain or shortness of breath or fever or chills or nausea or vomiting. Physical Exam Vital Signs: Vital Signs: Last Vital Signs Temp 97.5 F 05/12/22 11:06 Pulse 91 05/12/22 11:06 Resp 18 05/12/22 11:06 BP 103/68 05/12/22 11:06 Pulse Ox 93 05/12/22 11:06 O2 Del Method 05/12/22 11:06 BMI result Body Mass Index 29.1 Appearance: Alert.? Oriented X3.?still has abd pain?. cvs: rrr, [id number] , no murmur res: clear to auscultation ,no rhonchii or wheezing abd: no rebound or guarding , diffuse abd pain, bs present. ext pulses present , no cyanosis. neuro: axo3 , nonfocal, generally weak Objective Data Active Medications Acetaminophen (Acetaminophen 325 Mg Tablet) 650 mg PO Q12H PRN PRN Reason: Pain, Mild (Pain Scale 1-3) Carvedilol (Carvedilol 3.125 Mg Tablet) 3.125 mg PO BID [facility]; Protocol Last Admin: 05/09/22 10:40 Dose: 3.125 mg Documented By: JESSIKA Dextrose (Dextrose 50 % 25 Gm/50 Ml Syringe) 25 gm IVPUSH Q15M PRN; Protocol PRN Reason: per Hypoglycemia Standing Ord. Docusate Sodium (Docusate Sodium 100 Mg Capsule) 100 mg PO DAILY PRN PRN Reason: Constipation Furosemide (Furosemide 20 Mg Tablet) 20 mg PO DAILY [facility]; Protocol Last Admin: 05/12/22 07:46 Dose: 20 mg Documented By: PATRICIA Glucose (Glucose Gel 15 Gm Gel..Gram.) 15 gm PO Q15M PRN; Protocol PRN Reason: per Hypoglycemia Standing Ord. Heparin Sodium (Porcine) (Heparin Sodium,Porcine 5,000 Unit/Ml Vial) 5,000 unit SUBCUT Q12H [facility] Last Admin: 05/12/22 07:40 Dose: 5,000 unit Documented By: PATRICIA Ceftriaxone Sodium 1 gm/ (Sodium Chloride) 50 mls @ 100 mls/hr IV Q24H [facility] Last Infusion: 05/12/22 03:07 Dose: 0 mls/hr Documented By: BENITEZ Insulin Glargine (Insulin Glargine,Hum.Rec.Anlog 100 Unit/Ml 10 Ml Vial) 25 unit SUBCUT BEDTIME [facility] Last Admin: 05/11/22 21:42 Dose: 25 unit Documented By: BENITEZ Insulin Glargine (Insulin Glargine,Hum.Rec.Anlog 100 Unit/Ml 10 Ml Vial) 10 unit SUBCUT DAILY [facility] Last Admin: 05/12/22 07:38 Dose: 10 unit Documented By: PATRICIA Insulin Human Lispro (Insulin Lispro 100 Unit/Ml 3 Ml Vial) 0 unit SUBCUT QIDACHS [facility]; Protocol Last Admin: 05/12/22 11:43 Dose: 12 unit Documented By: PATRICIA Insulin Human Lispro (Insulin Lispro 100 Unit/Ml 3 Ml Vial) 5 unit SUBCUT QIDACHS [facility] Last Admin: 05/12/22 11:44 Dose: 5 unit Documented By: PATRICIA Morphine Sulfate (Morphine Sulfate 4 Mg/Ml Cartridge) 4 mg IVPUSH Q8H PRN; Protocol PRN Reason: Pain, Severe (Pain Scale 7-10) Last Admin: 05/11/22 06:09 Dose: 4 mg Documented By: EDGAR Ondansetron HCl (Ondansetron Hcl 4 Mg/2 Ml Vial) 4 mg IVPUSH Q8H PRN PRN Reason: Nausea and Vomiting Last Admin: 05/11/22 06:09 Dose: 4 mg Documented By: EDGAR Oxycodone HCl (Oxycodone Hcl Immed Release 5 Mg Tablet) 5 mg PO Q4H PRN PRN Reason: Pain, Severe (Pain Scale 7-10) Last Admin: 05/12/22 06:46 Dose: 5 mg Documented By: BENITEZ Sodium Chloride (0.9 % Sodium Chloride Flush 3 Ml Syringe) [facility] Last Admin: 05/12/22 07:48 Dose: Not Given Documented By: PATRICIA Non-Admin Reason: Patient Refused Spironolactone (Spironolactone 25 Mg Tablet) 50 mg PO BID@0900,1800 [facility]; Protocol Last Admin: 05/12/22 07:46 Dose: 50 mg Documented By: PATRICIA Labs CBC & Chem 7: 05/08/22 04:27 05/12/22 08:58 Labs: Laboratory Results - last 24 hr 05/11/22 05/11/22 05/12/22 16:22 21:28 07:17 Anion Gap Estim Creat Clear Calc Estimated GFR POC Glucose 275 H 310 H 222 H Random Glucose Calcium 05/12/22 05/12/22 08:58 11:06 Anion Gap 18 Estim Creat Clear Calc 53.6 Estimated GFR 47 POC Glucose 343 H Random Glucose 329 H Calcium 8.1 L D Microbiology Microbiology Results: Microbiology 05/08/22 11:50 Gram Stain - Final Abdominal Fluid Routine Culture - Final No growth after 2 days Anaerobic Culture - Preliminary No growth to date. Assessment and Plan (1) SBP (spontaneous bacterial peritonitis): Status: Acute (2) Abdominal pain: Status: Acute Plan 48-year-old female with past medical history of liver cirrhosis, and? recurrent admissions for increased ascites and therapeutic paracentesis presents to the hospital with abdominal pain #? abdominal pain -? concern for SBP, in the light of recent admission and E coli findings in the ascitic fluid -? patient has leukocytosis,? but afebrile -? elevated lactic acidosis-resolved. paracentesis :possible sbp ,blood culture and ascitis culutures pending, removed around 2liter fluids acitis fluid albumin/protein low-added albumin -continue IV antibiotics based on previous sensitivity,pain control GI eval- continue above management -recomended Id eval -recomended iv antibiotics day4/5 ,then switch to po. #? SBP -? given the abdominal pain, leukocytosis,? and previous results will treat with IV antibiotics -? follow cultures s /p paracentesis, still has abdominal pain added GI evaluation. removed around 2liter fluids , holdlasix. #? UTI -? positive UA -? will treat with IV antibiotics as above -? follow cultures-<10k,will repeat urine cultures. # history of hypertension - stable but on the low end - hold home antihypertensives and lasix # diabetes type 2 uncontrolled -hyperglycemia fs with adjusted sliding scale insulin and adjusted lantus - diabetic diet PT eval ?DVT prophylaxis:? Heparin subQ inpatient need:SBP needs? IV antibiotics and paracentesis,uncontrolled dm. Quality Stroke Does the patient have a stroke diagnosis?: No VTE Prior VTE?: No VTE Risk Level:: Medical - moderate - high VTE Device Contraindication: Treatment Not Indicated VTE Drug Contraindication: N/A - Med Ordered
[2022-05-12 16:00] VITALS: BP 102/63; PULSE 98; RESP 18; TEMP 37; O2SAT 93
[2022-05-12 16:45] LABS: Glucose, Whole Blood 308 mg/dL (60-115)
[2022-05-12] MEDS: 0.9 % Sodium Chloride Flush 3 ML SYRINGE IVFLUSH ×2 (16:53→20:17)
[2022-05-12 19:54] LABS: Glucose, Whole Blood 270 mg/dL (60-115)
[2022-05-12 20:00] VITALS: BP 96/60; PULSE 96; RESP 20; TEMP 37.2; O2SAT 99
[2022-05-12] MEDS: Insulin Glargine,Hum.rec.anlog 100 UNIT/ML 10 ML VIAL 25 UNIT SUBCUT (20:16)
[2022-05-13] VITALS: BP 102/64; PULSE 95; RESP 20; TEMP 36.9; O2SAT 98
[2022-05-13] MEDS: oxyCODONE HCl Immed Release 5 MG TABLET PO ×2 (01:38→08:13)
[2022-05-13] MEDS: cefTRIAXone sodium 1 GM in 0.9 % Sodium Chloride 50 ML IV (01:39)
[2022-05-13 07:50] LABS: Glucose, Whole Blood 272 mg/dL (60-115)
[2022-05-13 08:00] VITALS: BP 108/67; PULSE 88; RESP 18; TEMP 36.6; O2SAT 93
[2022-05-13] MEDS: Insulin Lispro 100 UNIT/ML 3 ML VIAL SUBCUT ×4 (08:05→11:44)
[2022-05-13] MEDS: Insulin Glargine,Hum.rec.anlog 100 UNIT/ML 10 ML VIAL 20 UNIT SUBCUT (08:06)
[2022-05-13] MEDS: Furosemide 20 MG TABLET PO (08:06)
[2022-05-13] MEDS: Spironolactone 25 MG TABLET 50 MG PO (08:06)
[2022-05-13] MEDS: Heparin Sodium,Porcine 5,000 UNIT/ML VIAL 5000 UNIT SUBCUT (08:06)
--- NOTE | 2022-05-13 10:03 | PM.DS ---
DS: Providers Provider Date of Service: 05/13/22 Date of admission: 05/08/22 01:29 Primary care physician: Eden Carrillo MD Consults: 05/09/22 08:46 Consult to Gastroenterology Routine Consulting Provider: Tre Yadav Reason for consultation: ABD PAIN/SBP Has provider been notified: No 05/10/22 11:48 Consult to Infectious Diseases Routine Consulting Provider: Melodie Donald Reason for consultation: sbp Has provider been notified: No DS: Diagnosis Discharge Diagnosis (1) SBP (spontaneous bacterial peritonitis): Status: Resolved (2) Abdominal pain: Status: Resolved (3) Cirrhosis: Status: Acute (4) Ascites: Status: Acute DS: Summary Hospital Course Hospital Course: 56-year-old female with past medical history of liver cirrhosis, diabetes, hypertension presents to the hospital with complaints of abdominal pain.? Patient was discharged from the hospital on 05/05 with similar presentation of on 04 25 at that time found to have E coli in the abdominal ascites.? Patient was treated with IV antibiotics, and sent home on levofloxacin.? Patient reports that since discharge she continued to have abdominal pain that was intractable, localized mostly to the right upper quadrant, nonradiating, constant,10/10, no alleviating or exacerbating factors.? she denies any nausea or vomiting, no diarrhea or constipation, no fever but has chills, no chest pain or shortness of breath, no urinary symptoms and no lower extremity edema. ? On arrival to the ED patient hemodynamically stable with no significant abnormal vitals Labs are significant for WBC count? of 13.3 which increased from 9.8 on day of discharge, INR of 1.6, sodium of 130, potassium of 4.3, lactic acid of 3.3, UA is positive for leukocyte Estrace and WBC ?CT abdomen shows small amount of ascites with no acute findings ?no attempt to do paracentesis in the ED was made as previous at times on previous admissions had failed ?given the intractable pain and concern for SBP patient started on IV antibiotics and will be admitted for further management. hopsital course: Patient came to the hospital because of abdominal pain and ascites: Workup seems like Possibly related to SBP -patient was seen by GI: Recommended paracentesis, labs reviewed-abdominal fluid culture preliminary negative but previously was growing E coli. Patient was initially started on IV ceftriaxone for SBP, and with paracentesis and removed 2.2 L fluid. And in addition started on spironolactone. Discussed with infectious disease-patient was given IV antibiotic for 5 days and switched to po Levaquin(still better po agent) 750 mg daily for 14 days and then every M,W,Fr. Given 14 days Levaquin supply and for the supply as per PCP outpatient . dm type 2 uncontrolled : adjusted lantus.closely moniter fs at home and follow outapteint with pcp with Hba1c and further adjustment of regimen if needed. intial ct abd: Redemonstration of the complex mixed attenuation structure at the posterior upper pole of the right kidney, with fluid and fat present. This is without change from prior. This measures 7 x 5.9 x 8 cm. Given the lack of change from the prior study, but new appearance from 06/24/2021, nonemergent MRI could be performed to better evaluate. plan: Complete p.o. antibiotic course. Then needs to be Levaquin 750 mg p.o. daily Saturday. Given Levaquin supply as above, for the supply as per PCP outpatient. consider follow MRI study for above renal right renal complex mixed attenuation structure (please see above.) Follow-up with GI outpatient. Started on spironolactone for ascites/liver disease: Monitor renal function and electrolytes closely with PCP. Above management discussed with the patient in detail length with her and her son laura-in detail length : both understand and in agreement with the above plan, time spent 50 minutes and 50% time spent on counseling. Significant findings: As above. Procedures performed: None. Treatment and response: As above. Complications: None. Time Spent with Patient Time attestation: Total time spent providing and/or coordinating discharge services: Discharge coordination time: Greater than 30 minutes Quality: Safe Use of Opioids Does Pt have an Active Cancer Diagnosis on the Problem List?: No Quality: Stroke Does the patient have a stroke diagnosis?: No Physical Exam Vital Signs: Vital Signs: Last Vital Signs Temp 98 F 05/13/22 08:00 Pulse 88 05/13/22 08:00 Resp 18 05/13/22 08:00 BP 108/67 05/13/22 08:00 Pulse Ox 93 05/13/22 08:00 O2 Del Method 05/13/22 08:00 BMI result Body Mass Index 29.1 Appearance: Alert.? Oriented X3.? cvs: rrr, [id number] , no murmur res: clear to auscultation ,no rhonchii or wheezing abd: no rebound or guarding , abdominal pain seems improved significantly, bs present. ext pulses present , no cyanosis. neuro: axo3 , nonfocal, generally weak DS: Data Data Completed and Pending Completed studies during hospitalization [Text1]: Pending at discharge 05/08/22 12:16 Cytology [PTH] Urgent Procedures Drainage of Peritoneal Cavity with Drainage Device, Percutaneous Approach (04/25/22) Drainage of Peritoneal Cavity, Percutaneous Approach (06/14/21) Insertion of Infusion Device into Right Brachial Vein, Percutaneous Approach (06/14/21) Labs on day of discharge: Laboratory Results - last 24 hr 05/12/22 05/12/22 05/12/22 08:58 11:06 16:40 Sodium 132 L Potassium 4.7 Chloride 95 L Carbon Dioxide 24 Anion Gap 18 BUN 15 Creatinine 1.19 Estim Creat Clear Calc 53.6 Estimated GFR 47 POC Glucose 343 H 308 H Random Glucose 329 H Calcium 8.1 L D 05/12/22 05/13/22 19:50 07:36 Sodium Potassium Chloride Carbon Dioxide Anion Gap BUN Creatinine Estim Creat Clear Calc Estimated GFR POC Glucose 270 H 272 H Random Glucose Calcium Preliminary micro results at discharge 05/08/22 11:50 Anaerobic Culture - Preliminary Abdominal Fluid No growth to date. Additional Comments Additional comments: CT/CT abdomen pelvis wo IV con IMPRESSION: No acute findings. Cirrhotic liver. Changes of portal hypertension. Small volume ascites. ? No significant change in appearance of the mixed attenuation right renal lesion, with fluid and fat present. Given the lack of change from the prior study, but new appearance from 06/24/2021, nonemergent MRI could be performed to better evaluate. ? Right adnexal dermoid is unchanged. ? Fleischner guidelines were followed. US/US paracentesis abd w/image IMPRESSION: Successful ultrasound-guided paracentesis.? Discharge Plan Discharge Patient Disposition: Home, Self-Care Discharge Diagnosis: SBP , cirrosis ,ascitis ,type 2 dm uncontrolled Referrals: Eden Han MD [Primary Care Provider] - 1 Week Discharge Medications: New insulin glargine [Lantus Solostar U-100 Insulin] 100 unit/mL (3 mL) insulin pen 10 unit subcut QAM Qty: 15 0RF Continued carvedilol 3.125 mg tablet 1 tab PO BID polyethylene glycol 3350 17 gram/dose powder 17 g PO DAILY insulin aspart U-100 [Novolog Flexpen U-100 Insulin] 100 unit/mL (3 mL) insulin pen See Protocol subcut TID Protocol: Insulin Correction Scale Less than or equal to 110 ---- Give (units): 0 111 to 150 Give (units): 0 151 to 200 Give (units): 2 201 to 250 Give (units): 4 251 to 300 Give (units): 6 301 to 350 Give (units): 8 Greater than 350 Give (units): 10 Call MD if Blood Glucose > : 350 oxycodone 5 mg Tablet 10 mg PO Q4H PRN (Reason: severe pain) Qty: 20 0RF Rx Instructions: Partial Fill upon patient request. furosemide [Lasix] 40 mg tablet 40 mg PO DAILY Qty: 30 0RF spironolactone [Aldactone] 50 mg tablet 50 mg PO BID Qty: 60 0RF levofloxacin 750 mg tablet 750 mg PO DAILY 7 Days Qty: 13 0RF Changed insulin glargine [Lantus Solostar U-100 Insulin] 100 unit/mL (3 mL) insulin pen 25 unit subcut BEDTIME Qty: 15 0RF Discharge Orders: Discharge Order (Routine); Ordered 05/13/22 Ordered By: Krysten Rothman Diet: Diabetic diet Activity on Discharge: As tolerated Stand Alone Forms: Patient Portal Discharge page Other Ambulatory Orders: Basic Metabolic Panel (Routine) Timeframe: 1 Week Facility: [facility] - Location: Laboratory Ordered By: Krysten Rothman Care Plan Goals: Patient was admitted for possible infection in the abdominal fluid: Started on IV antibiotic, seems improving Complete p.o. antibiotic course.? Then needs to be Levaquin 750 mg p.o. daily and then Levaquin 750 mg p.o. Saturday.? Given Levaquin supply as above, for the supply as per PCP outpatient. consider follow MRI study for above renal right renal?complex mixed attenuation structure (please see above.) with pcp outpatient. dm seems uncontrolled : adjusted lantus.closely moniter fs at home and follow outapteint with pcp. Follow-up with GI outpatient. Started on spironolactone for ascites/liver disease: Monitor renal function and electrolytes closely with PCP. Health Concerns: If abdominal pain worsen or nausea vomiting or fever- please go to nearest emergency room for further evaluation. Plan of Treatment: As above Assessment: As above.
[2022-05-13] MEDS: levoFLOXacin 750 MG TABLET PO (10:59)
[2022-05-13 11:35] LABS: Glucose, Whole Blood 209 mg/dL (60-115)
--- NOTE | 2022-05-13 11:51 | MHC.CM.PN ---
order for D/C self care. [facility] response via careport indicative of [facility] in-home management for services oversight. MD inquired RE said services and reported to MD patient's in-home care oversight; [facility] responsible for assessment and eval of qualifications for increased in-home services. D/C order acknowledged.
[2022-05-13 12:00] VITALS: BP 108/66; PULSE 101; RESP 18; TEMP 37.1; O2SAT 99
== END 2022-05-13 13:15 | disposition home or self-care (01) | DRG 372 ==
LOC: HO.ED 05-08 00:46 → HO.EDOVER 05-08 01:36 → HO.IMC 05-10 08:53
PROVIDERS: Nurse Practitioner Family; Radiology Diagnostic Radiology; Admitting Provider Internal Medicine; Emergency Provider Internal Medicine; PCP Internal Medicine; Visit Provider Internal Medicine
PROC: 0W9G3ZZ Drainage of Peritoneal Cavity, Percutaneous Approach (ICD-10-PCS; principal; 2022-05-08 11:00)
DX: K65.2 Spontaneous bacterial peritonitis (principal); N39.0 Urinary tract infection, site not specified; R18.8 Other ascites; K74.60 Unspecified cirrhosis of liver; I10 Essential (primary) hypertension; E11.65 Type 2 diabetes mellitus with hyperglycemia; Z20.822 Contact with and (suspected) exposure to COVID-19; Z79.4 Long term (current) use of insulin; Z79.899 Other long term (current) drug therapy
CPT/HCPCS: 36415; 49083; 74176; 80048; 80053; 81001; 82248; 82945; 82947; 83605; 83615; 83690; 84157; 84484; 85025; 85610; 87040; 87070; 87073; 87086; 87088; 87186; 87205; 87635; 88112; 88305; 89051; 93005; 96361; 96374; 96375; 97162; 99285; J0696; J2270; J2405; J2543; P9047

== ENCOUNTER 2022-07-13 21:34 | Inpatient (IN) | payer OTHER, SELFPAY ==
--- NOTE | ~2022-07-13 | US_ITS ---
EXAMINATION: US ABDOMEN LIMITED CLINICAL INFORMATION: Ascites check for therapeutic paracentesis. COMPARISON: Ultrasound abdomen limited 05/04/2022 and 04/27/2022. TECHNIQUE: Limited real-time imaging of the abdomen performed to evaluate ascites. FINDINGS: Small to moderate amount of ascites. US/US abdomen limited IMPRESSION: Small to moderate amount of ascites.
--- NOTE | ~2022-07-13 | US_ITS ---
EXAMINATION: US ABDOMEN LIMITED CLINICAL INFORMATION: Abdominal distention, ascites, evaluate for paracentesis. COMPARISON: Abdominal ultrasound dated 07/17/2022. TECHNIQUE: Real-time imaging of the abdominal quadrants. US/US abdomen limited FINDINGS/IMPRESSION: Moderate peritoneal ascites in all 4 quadrants appears mildly increased.
--- NOTE | ~2022-07-13 | CT_ITS ---
EXAMINATION: CT head/brain wo IV con CLINICAL INFORMATION: Reason for Exam seizure COMPARISON: None. TECHNIQUE: Contiguous axial imaging was performed from the skull base to vertex without intravenous contrast. Sagittal and coronal reformatted images were obtained. This CT examination was performed using dose optimization techniques as appropriate, variously including the following: * Automated exposure control * Adjustment of mA and/or kV according to patient size (this includes techniques or standardized protocols for targeted exams where dose is matched to indication/reason for exam; i.e. extremities or head) Use of iterative reconstruction technique DLP: 560 mGy-cm FINDINGS: No acute osseous or soft tissue abnormality. Partial opacification of the right sphenoid sinus. There is no evidence of acute intracranial hemorrhage or territorial infarction. No abnormal mass effect or midline shift is seen. Levy to white matter differentiation is well preserved. No extra-axial fluid collections are identified. No hydrocephalus. CT/CT head/brain wo IV con IMPRESSION: No acute intracranial abnormality. Partial opacification of the right sphenoid sinus.
--- NOTE | ~2022-07-13 | CT_ITS ---
EXAMINATION: CT HEAD WITHOUT CONTRAST CLINICAL INFORMATION: Possible seizure COMPARISON: None TECHNIQUE: Contiguous axial imaging was performed from the skull base to vertex without intravenous administration of contrast. This CT examination was performed using dose optimization techniques as appropriate, variously including the following: *Automated exposure control *Adjustment of mA and/or kV according to patient size (this includes techniques or standardized protocols for targeted exams where dose is matched to indication/reason for exam; i.e. extremities or head) *Use of iterative reconstruction technique DLP: 599 mGy-cm FINDINGS: There is no acute intra-axial, extra-axial bleed, masses or midline shift. There is no acute infarction evolution. The henderson to white matter differentiation is maintained. The lateral ventricles are symmetrical in size and configuration without enlargement. Bone windows reveal no calvarial abnormality. No scalp soft tissue modality. There is moderate opacification of right sphenoid sinus. Rest of the paranasal sinuses are clear. CT/CT head/brain wo IV con IMPRESSION: 1. No acute intracranial process seen. 2. Chronic right sphenoid sinus inflammatory changes.
--- NOTE | ~2022-07-13 | CT_ITS ---
EXAMINATION: CT ABDOMEN AND PELVIS WITH CONTRAST CLINICAL INFORMATION: Cirrhosis. Ascites. Right lower quadrant pain. COMPARISON: 05/07/2022 TECHNIQUE: Multidetector volumetric images were obtained from the superior aspect of the liver through the pubic symphysis following administration 85 mL of Omnipaque 350 intravenous contrast. Sagittal and coronal reformatted images were obtained on the technologist's workstation. Oral contrast: No This CT examination was performed using dose optimization techniques as appropriate, variously including the following: *Automated exposure control *Adjustment of mA and/or kV according to patient size (this includes techniques or standardized protocols for targeted exams where dose is matched to indication/reason for exam; i.e. extremities or head) *Use of iterative reconstruction technique DLP: 770 mGy-cm FINDINGS: LUNG BASES: Bibasilar atelectasis. Coronary artery calcifications noted. LIVER, GALLBLADDER, AND BILIARY TREE: Shrunken liver with nodular Contour. Normal attenuation. No focal liver lesion or biliary ductal dilatation. Recanalization of the umbilical vein. The portal vein is patent. Small volume ascites remains. Normally distended gallbladder with multiple stones. There is a dominant stone measuring 3.5 cm. PANCREAS: Unremarkable. SPLEEN: Unremarkable. ADRENAL GLANDS: Unremarkable. KIDNEYS AND URETERS: The kidneys are normal in size, shape, and attenuation. No hydronephrosis, hydroureter, or calculi seen. No perinephric stranding. BLADDER: Unremarkable. GASTROINTESTINAL TRACT: The stomach is unremarkable. Normal caliber small bowel. No obstruction. Fluid-filled appearance seen in the distal small bowel at the right lower quadrant. There may also be some mild wall thickening of the cecum/ascending colon. The remainder of the colon is without wall thickening. Mild colonic stool burden. No free air. Seton noted. ABDOMINAL WALL: No significant hernia is appreciated. Anasarca. LYMPH NODES: Multiple small retroperitoneal lymph nodes without pathologic enlargement. VASCULAR: Normal caliber aorta. Prominent varices in the upper abdomen. This includes esophageal varices. PELVIC VISCERA: Normal appearance of the uterus. Right adnexal dermoid measuring 4.2 cm. OSSEOUS STRUCTURES: No acute or suspicious osseous abnormality. Mild degenerative change throughout the spine. Mild degenerative changes of the hips. CT/CT abdomen pelvis w IV con IMPRESSION: 1. Cirrhotic liver with small volume ascites. Prominent upper abdominal varices including esophageal varices. 2. Cholelithiasis. 3. Right adnexal dermoid. 4. Fluid-filled appearance of the distal small bowel at the right lower quadrant. There may also be some mild wall thickening of the cecum/ascending colon. This could be associated with enterocolitis. Fleischner guidelines were followed.
--- NOTE | ~2022-07-13 | MR_ITS ---
EXAMINATION: MR BRAIN WITHOUT CONTRAST CLINICAL INFORMATION: Seizure. COMPARISON: Multiple prior head CTs most recent 07/20/2022. TECHNIQUE: Multiplanar, multisequence imaging of the brain was performed without intravenous contrast. FINDINGS: There is no acute infarction, mass, hemorrhage, or extra-axial collection. . There is a punctate focus of susceptibility signal in the central kentrell, presumably a microhemorrhage. There is mild periventricular T2 hyperintensity seen within the bilateral periatrial white matter with associated encephalomalacic and gliotic changes, similar compared with prior exams dating back to 2007 The hippocampi demonstrate symmetric size, signal, and morphology. No gross focal cortical dysplasia is seen. The flow voids of the major intracranial arteries appear intact. The bones and extracranial soft tissues are unremarkable. MR/MR head/brain wo con IMPRESSION: No acute intracranial abnormality. No discrete epileptogenic nidus identified. Chronic encephalomalacic and gliotic changes in the bilateral periatrial white matter.
--- NOTE | ~2022-07-13 | CT_ITS ---
EXAMINATION: CT ABDOMEN AND PELVIS WITHOUT CONTRAST CLINICAL INFORMATION: Possible bleed in the peritoneum COMPARISON: 07/14/2022 at 3:48 AM TECHNIQUE: Multidetector volumetric imaging was performed from the superior aspect of the liver through the pubic symphysis. Sagittal and coronal reformatted images were obtained on the technologist's workstation. This CT examination was performed using dose optimization techniques as appropriate, variously including the following: *Automated exposure control *Adjustment of mA and/or kV according to patient size (this includes techniques or standardized protocols for targeted exams where dose is matched to indication/reason for exam; i.e. extremities or head) *Use of iterative reconstruction technique DLP: 698 mGy-cm FINDINGS: LUNG BASES: Trace bilateral pleural effusions. Small pericardial effusion. Minimal interlobular septal thickening in the bases. Coronary artery calcifications are again noted. LIVER, GALLBLADDER, AND BILIARY TREE: Abnormally small liver with a nodular contour and heterogeneous hyperattenuation of the parenchyma, consistent with cirrhosis. No discrete lesions on this unenhanced study. No biliary ductal dilatation. Cholelithiasis with a dominant 3.5 cm calculus. Gallbladder is contracted with mild wall thickening. Pericholecystic fluid is likely related to the moderate volume intraperitoneal ascites. PANCREAS: Unremarkable. SPLEEN: Normal size. ADRENAL GLANDS: Unremarkable. KIDNEYS AND URETERS: Contrast material is evident in the bilateral renal collecting systems, limiting sensitivity for small calculi. No hydronephrosis or hydroureter. The kidneys are normal in size, shape, and attenuation. No hydronephrosis, hydroureter, or calculi seen. Right perinephric stranding.. BLADDER: Contrast material is noted throughout the bladder dependently. No contrast leakage. GASTROINTESTINAL TRACT: Moderate volume of intracranial free fluid is similar to prior. Of note, there is increased attenuation of the intraperitoneal fluid as compared to prior study, now measuring up to 24 Hounsfield units in the lower abdomen and in the perihepatic region. This is increased from 4 Hounsfield units in the same region on the prior study. A clear source of intraperitoneal bleeding is not apparent on these images. No intraperitoneal gas. Stomach, small bowel, and colon are normal in caliber. Moderate volume of stool throughout the colon. Hyperdense catheter in the rectum likely corresponds to a rectal catheter . A seton stitch is less likely. There is wall thickening of the cecum and ascending colon which may be related to portal venous hypertension. Diffuse mesenteric fat stranding is again noted. Multiple fluid containing loops of small bowel are noted, but are within normal limits in size. ABDOMINAL WALL: Anasarca. No hernias. LYMPH NODES: Numerous subcentimeter retroperitoneal nodes without pathologic adenopathy identified. VASCULAR: Numerous portosystemic venous collaterals are identified in including a recanalized umbilical vein and ascending periesophageal varices PELVIC VISCERA: Right adnexal fat attenuation and dermoid is again noted, measuring 4.2 cm in diameter. Uterus is unremarkable. OSSEOUS STRUCTURES: Mild to moderate multilevel degenerative spondylosis. No acute fractures. 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 CT/CT abdomen pelvis wo IV con IMPRESSION: 1. Moderate volume of intraperitoneal free fluid, similar to prior. However, there is increased attenuation of the intraperitoneal fluid as compared to prior which is concerning for hemoperitoneum. A clear source of intraperitoneal bleeding is not identified. 2. Hepatic cirrhosis with evidence of portal venous hypertension including portosystemic venous collaterals. Wall thickening in the cecum and ascending colon is unchanged and may correspond to portal colopathy, though infectious colitis is also on the differential. 3. Cholelithiasis. 4. Anasarca. 5. Unchanged right adnexal dermoid. 6. Trace bilateral pleural effusions. Small pericardial effusion. Fleischner guidelines were followed.
--- NOTE | ~2022-07-13 | US_ITS ---
EXAMINATION: US-GUIDED PARACENTESIS CLINICAL INFORMATION: Ascites. COMPARISON: Previous CT of the abdomen and pelvis 07/14/2022. TECHNIQUE: Procedure and risks and benefits including bleeding, infection and low blood pressure were discussed with the patient and informed consent was obtained. The right lower quadrant was prepped and draped in the usual sterile fashion. The skin and soft tissues were anesthetized with 1% lidocaine plain. Using ultrasound guidance and a 4-Belizean rapid centesis catheter, access to the ascitic fluid was obtained. 2.5 L of clear yellow fluid was removed. No diagnostic specimen was sent. FINDINGS: There is a moderate amount of ascites. US/US paracentesis abd w/image IMPRESSION: Ultrasound-guided paracentesis.
--- NOTE | ~2022-07-13 | XR_ITS ---
EXAMINATION: XR CHEST CLINICAL INFORMATION: Rule out aspiration COMPARISON: 12/22/2021 TECHNIQUE: Frontal view of the chest was obtained. FINDINGS: Cardiac leads overlie the chest. The lungs are well expanded. There is no focal consolidation, edema, or effusion. Linear left basilar atelectasis/scarring. No pneumothorax. The cardiomediastinal silhouette is within normal limits. No acute osseous abnormality. Chronic healed right humeral diaphyseal fracture. XR/XR chest 1V IMPRESSION: No consolidation. Linear left basilar atelectasis/scarring.
--- NOTE | ~2022-07-13 | XR_ITS ---
EXAMINATION: XR KUB CLINICAL INDICATION: Reason for Exam nausea/vomiting COMPARISON: CT abdomen pelvis 05/07/2022 TECHNIQUE: AP view of the abdomen. XR/XR KUB FINDINGS/IMPRESSION: * No dilation of large or small bowel to suggest obstruction. Gaseous distention of nondilated sigmoid colon, which appears redundant. * Eggshell like calcification in the right upper quadrant which may reflect a gallstone.
--- NOTE | ~2022-07-13 | US_ITS ---
EXAMINATION: ULTRASOUND-GUIDED PARACENTESIS CLINICAL INFORMATION: Ascites COMPARISON: Previous exams most recent 07/16/2022 TECHNIQUE: Procedure and risks and benefits including bleeding, infection and low blood pressure were discussed with the patient and informed consent was obtained. The right lower quadrant was prepped and draped in the usual sterile fashion. The skin and soft tissues were anesthetized with 1% lidocaine plain. Using ultrasound guidance and a 5 [place] rapid centesis catheter, access to the ascitic fluid was obtained. 5.6 L of clear yellow fluid was removed. No diagnostic specimen was sent. FINDINGS: There is a moderate to large amount of ascites. US/US paracentesis abd w/image IMPRESSION: Ultrasound-guided paracentesis.
[2022-07-13 21:36] VITALS: BP 100/31; BP 89/60; PULSE 59; PULSE 64; RESP 14; O2SAT 93; O2SAT 98; BMI 26.1
[2022-07-13 21:41] LABS: Glucose, Whole Blood 143 mg/dL (60-115)
--- NOTE | 2022-07-13 21:41 | ECG_ITS ---
Test Reason : UNRESPONSIVE Blood Pressure : / mmHG Vent. Rate : 059 BPM Atrial Rate : 059 BPM P-R Int : 152 ms QRS Dur : 072 ms QT Int : 526 ms P-R-T Axes : 046 -08 003 degrees QTc Int : 520 ms Sinus bradycardia Low voltage QRS Nonspecific ST abnormality Prolonged QT Abnormal ECG When compared with ECG of 07-MAY-2022 15:36, Vent. rate has decreased BY 36 BPM T wave amplitude has decreased in Anterolateral leads Referred By: Kev Henry Electronically Signed By:AVERY CHASE MD
--- NOTE | 2022-07-13 21:46 | PC.NURSE ---
Pt. on media monitor at this time. Repeat POC = 143
[2022-07-13] MEDS: 0.9 % Sodium Chloride 1,000 ML 999 ML IV (21:47)
[2022-07-13 22:06] LABS: MANUAL DIFF FLAG NO
--- OUTSIDE RECORDS SUMMARY | 2022-07-13 22:06 | XMS_ITS | Continuity of Care Document ---
:1965 Author Organization [facility] Address [address] [place] [id number]- Care Team Providers Name Role Phone Andre Lynch MD Primary Care Physician Encounter [facility] Date(s): 06/07/21 - 06/07/[address] [address]- Encounter Diagnosis Ascites (Final) - 06/07/21 Abdominal distention (Final) - 06/07/21 Advanced cirrhosis of liver (Final) - 06/07/21 Hyperglycemia (Final) - 06/07/21 Anal fissure (Final) - 06/07/21 Discharge Disposition: A-D/C Home Attending Physician: Ninfa Salazar MD Admitting Physician: Ninfa Salazar MD Referring Physician: Not on Staff, Referring MD Allergies, Adverse Reactions, Alerts Substance Reaction Severity Status NKA Active Immunizations Given and Recorded Vaccine Date Status Refusal Reason pneumococcal 23-valent vaccine 10/13/18 Given Medications Carafate 1 gm oral tablet 1 Gm, By Mouth, 3 times a day before meals and bedtime, on an empty stomach. dissolve in 30ml of water., # 21 tablet, Refills 0, Tot. Refills 0, Maintenance, 10/28/18 11:17:30 EDT, Route to Pharmacy Electronically, [id number]... Start Date: 10/28/18 Stop Date: 11/04/18 Status: Orderedcephalexin monohydrate 500 mg oral capsule 1 capsule = 500 mg, By Mouth, Every 8 hours, for 7 days, # 21 capsule, 0 Refills, Acute 06/14/21 21:35:00 EDT, 06/07/21 21:35:00 EDT, Capsule, [facility]/pharmacy #[id number], Partial fill upon patient request if the prescription is for a schedule II opioid drug.,... Start Date: 06/07/21 Stop Date: 06/14/21 Status: OrderedDilaudid Inj 0.5 mg, Injection, IV Push Slowly, Once, STAT, 06/07/21 20:37:00 EDT, Stop date 06/07/21 20:37:00 EDT Start Date: 06/07/21 Stop Date: 06/07/21 Status: Completeddocusate-senna 50 mg-187 mg oral tablet 1 tablet, By Mouth, Daily at bedtime, for 14 days, # 100 tablet, 0 Refills, Acute 06/21/21 21:24:00 EDT, 06/07/21 21:24:00 EDT, Tablet, [facility]/pharmacy #[id number], Partial fill upon patient request if the prescription is for a schedule II opioid drug., 1 tabl... Start Date: 06/07/21 Stop Date: 06/21/21 Status: OrderedLantus Inj = 45 units, Subcutaneous Injection, Daily at bedtime, 0 Refills, Maintenance, 10/12/18 17:42:45 EST,Injection Start Date: 10/12/18 Status: OrderedMiraLax oral powder for reconstitution = 17 Gm, By Mouth, Daily, for 14 days, dissolve in water before taking, # 527 Gm, 1 Refills, Acute 07/05/21 21:23:00 EST, 06/07/21 21:23:00 EDT, REC Powder, [facility]/pharmacy #[id number], Partial fill upon patient request if the prescription is for a schedule II... Start Date: 06/07/21 Stop Date: 07/05/21 Status: Orderednadolol 20 mg oral tablet 20 mg, By Mouth, Daily, hold for sbp < 90 or hr < 55, # 30 tablet, Refills 0, Tot. Refills 0, Maintenance, 10/28/18 11:16:13 EDT, Route to Pharmacy Electronically, [id number], [facility] Start Date: 10/28/18 Stop Date: 11/27/18 Status: OrderedNovoLOG 100 units/mL subcutaneous solution See Instructions, Subcutaneous Injection, Use as directed for Diabetes mellitus type 1. (Max Dose = 50 units/day), 10 mL vials, # 3 vials, 5 Refills, Maintenance, 10/28/18 11:23:01 EDT, 70 - 119 2 units ; 120 - 169 4 units ; 170 - 219 6 units ;... Start Date: 10/28/18 Stop Date: 04/26/19 Status: Orderedpantoprazole 40 mg oral delayed release tablet = 40 mg, By Mouth, Daily, # 30 tablet, 2 Refills, Maintenance, 10/28/18 11:17:12 EDT, EC Tablet Start Date: 10/28/18 Stop Date: 01/26/19 Status: OrderedPyridium 200 mg oral tablet 1 tablet = 200 mg, By Mouth, 2 times a day, for 2 days, # 4 tablet, 0 Refills, Acute 06/09/21 21:36:00 EDT, 06/07/21 21:36:00 EDT, Tablet, [facility]/pharmacy #[id number], Partial fill upon patient request if the prescription is for a schedule II opioid drug., 165... Start Date: 06/07/21 Stop Date: 06/09/21 Status: Ordered Problem List Condition Effective Dates Status Health Status Informant Cirrhosis of liver(Confirmed) Active IDDM (insulin dependent diabetes Active mellitus)(Confirmed) Results Orders for Microbiology Reports Name Date Sterile Body Fluid Culture W/ Gram Smear 06/07/21 Microbiology Reports TEST:Sterile Fluid Culture STATUS:Unauthenticated BODY SITE: SOURCE:[facility] COLLECTED DATE/TIME:06/07/21 6:52 PMSterile Fluid Culture SPECIMEN DESCRIPTION : Peritoneal fluid SPECIAL REQUESTS : NONE GRAM STAIN : 1+ WHITE BLOOD CELLS NO ORGANISMS SEEN REPORT STATUS : PRELIMINARY REPORT Vital Signs Most recent to oldest 1 2 3 [Reference Range]: Height 165 cm (06/07/21 5:07 PM) Weight 92 kg (06/07/21 5:07 PM) Oxygen Saturation [94-100 99 % 100 % 99 % %] (06/07/21 10:47 PM) (06/07/21 9:46 PM) (06/07/21 8:14 PM) Pulse Rate [55-90 bpm] 90 bpm 95 bpm 88 bpm (06/07/21 10:47 PM) *H* (06/07/21 8: 14 PM) (06/07/21 9:46 PM) Blood Pressure 114/62 mm Hg 108/56 mm Hg 100/64 mm Hg [90-138/55-84 mm Hg] (06/07/21 10:47 PM) (06/07/21 9:46 PM) ( 8:14 PM) Respiratory Rate [16-30 18 br/min 17 br/min 18 br/mi n br/min] (06/07/21 10:47 PM) (06/07/21 9:46 PM) (06/07/21 8:49 PM) Temperature [96.8-100.4 98.2 DegF 98.2 DegF 98.1 Deg F DegF] (06/07/21 10:47 PM) (06/07/21 8:14 PM) (06/07/21 2:21 PM) Mode of Delivery (Oxygen) Room air Room air Room a ir (06/07/21 10:47 PM) (06/07/21 9:46 PM) (06/07/21 8:14 PM) Blood pressure sites Arm, left Arm, left Arm, left (06/07/21 10:47 PM) (06/07/21 9:46 PM) (06/07/21 8:14 PM) Temperature Route Oral Oral Oral (06/07/21 10:47 PM) (06/07/21 8:14 PM) (06/07/21 2:21 PM) Dry Weight 92 kg (06/07/21 5:07 PM) Social History Social History Type Response Smoking Status Never (less than 100 in life time) entered on: 10/12/18 Sex
--- OUTSIDE RECORDS SUMMARY | 2022-07-13 22:06 | XMS_ITS ---
:1965 Author Care Team Providers Name Role Phone MONIKA LAGUNAS - 4TH FLOOR OTHER [phone] YAIMA FOSS DO Primary Care Provider [phone] Allergies Code Code System Name Reaction Severity Status Onset NKDA ? Medications No Medications Reported Notes: meds reviewed. meds may not be up to date. see MAR for complete list. Problems Name Status Onset Date Source ? Type 2 Diabetes Mellitus Active 06/24/2021 ? Hyperlipidemia Active 06/24/2021 ? Essential Hypertension Active 06/24/2021 ? Constipation Active 06/24/2021 ? Cirrhosis of Liver Active 06/24/2021 ? Chronic Abdominal Pain Active 06/24/2021 ? Ascites Active 06/24/2021 ? Bacteremia Active 06/24/2021 ? History of Hypertension Unknown 06/24/2021 ? Nonalcoholic Steatohepatitis Active 06/24/2021 ? Procedures None recorded. Results Lab Results None recorded. Past Encounters 07/11/2021 Bacteremia; Cirrhosis of Liver; Ascites; Essential Hypertension; Constipation; Type 2 Diabetes Mellitus; At Risk for Falls Karey Shaw INOCULATOR: [address] [place] [phone], Ph. 07/04/2021 Bacteremia; Cirrhosis of Liver; Ascites; Essential Hypertension; Constipation; Type 2 Diabetes Mellitus; At Risk for Falls Karey Shaw INOCULATOR: [address] [place] [phone], Ph. 06/26/2021 Bacteremia; Cirrhosis of Liver; Ascites; Essential Hypertension; Constipation; Type 2 Diabetes Mellitus; At Risk for Falls Cuco Mabry MD: [address] [place] [phone], Ph. 06/24/2021 Cirrhosis of Liver; Essential Hypertensi on; Bacteremia; Ascites; Constipation; Type 2 Diabetes Mellitus; Chronic Abdominal Pain; At Risk for Falls JESSEE Pineda: [address] [place] [phone], Ph. Social History Tobacco Smoking Status Never Smoker Vaccine List None recorded. Plan of Care Reminders Provider Appointments None recorded. ? ? Lab None recorded. ? ? Referral None recorded. ? ? Procedures None recorded. ? ? Surgeries None recorded. ? ? Imaging None recorded. ? ? Vitals 07/11/2021 11:44AM Discharge Summary Blood Pressure 95/62 mm[Hg] 07/04/2021 03:02PM Acute Rounding Visit Blood Pressure 112/65 mm[Hg] 06/26/2021 01:21PM Admitting H&P Blood Pressure 118/78 mm[Hg] 06/24/2021 04:13PM Initial Intake Note Blood Pressure 106/65 mm[Hg]
[2022-07-13 22:08] LABS: Basophils Percent Auto 0.4 % (0-2); Hematocrit 40.4 % (37.0-47.0); Hemoglobin 13.4 g/dl (12.0-16.0); Imm Gran Abs Auto 0.02 X10*3/uL (0.00-0.03); Imm Gran Pct Auto 0.4 % (0.0-0.4); Lymphocytes Absolute Auto 0.7 X10*3/uL (1.2-4.9); Lymphocytes Percent Auto 14.8 % (20-40); Mean Corpuscular HGB Conc 33.2 g/dl (31.0-35.0); Mean Corpuscular Hemoglobin 30.8 pg (27.0-33.0); Mean Corpuscular Volume 92.9 fL (80.0-98.0); Mean Platelet Volume 9.8 fL (9.4-12.3); Monocytes Absolute Auto 0.1 X10*3/uL (0.1-1.2); Monocytes Percent Auto 2.4 % (2-11); Neutrophils Absolute Auto 4.1 x10*3/uL (2.0-8.3); Platelet Count 191 X10*3/uL (160-400); Red Blood Count 4.35 X10*6/uL (4.20-5.50); Red Cell Distribution Width 14.6 % (11.0-16.0)
[2022-07-13 22:13] LABS: INTERNATIONAL NORM RATIO 1.6 (0.9-1.1); Prothrombin Time 19.2 SEC (10.0-13.1)
[2022-07-13 22:19] LABS: Ammonia 32 umol/L (13-55)
--- NOTE | 2022-07-13 22:20 | PC.NURSE ---
Pt.'s temp. 91.2 rectally. Pt. on senior java architect at this time and awaiting Lactic
[2022-07-13 22:26] VITALS: BP 100/31; PULSE 60; RESP 14; TEMP 32.9; O2SAT 98
[2022-07-13 22:27] LABS: Alanine Aminotransferase 18 U/L (0-31); Albumin Level 2.2 g/dL (3.5-5.0); Alkaline Phosphatase 111 U/L (39-117); Anion Gap 10 (12-20); Aspartate Amino Transferase 57 U/L (5-31); Bilirubin Total 1.2 mg/dL (0.0-1.0); Blood Urea Nitrogen 7 mg/dL (9-16); Calcium 7.7 mg/dL (8.4-10.2); Carbon Dioxide 25 mmol/L (22-29); Chloride 107 mmol/L (96-108); Estimated Glomerular Filt Rate > 60; Glucose Random 95 mg/dL (60-115); Lipase 21 U/L (8-78); Magnesium 1.8 mg/dL (1.6-2.6); Potassium 4.9 mmol/L (3.3-5.1); Sodium 137 mmol/L (135-145); Total Protein 6.5 g/dL (6.5-8.0)
[2022-07-13 22:32] LABS: Troponin-I High Sensitivity < 3.5 ng/L (<3.5-17.0)
--- NOTE | 2022-07-13 23:05 | ED_ITS ---
HPI - Altered Mental Status General Chief Complaint: Altered Mental Status Stated Complaint: UNRESPONSIVE Time Seen by Provider: 07/13/22 21:36 Source: patient Mode of arrival: EMS Limitations: no limitations History of Present Illness HPI narrative: Patient 56 years old with history of alcoholic liver cirrhosis with ascites, diabetes, hypertension discharged from [facility] after 2 week stay for ascites and infection drained ascitic fluid 2 times patient was okay at 14:00 and her sister saw her later her and was given her medications later son could not reach her when EMS arrived patient was in the bed no signs of fall lethargic and confused POC was 54 which improved after D10 given by EMS last blood sugar was 280 prior to arrival patient was also more awake and alert almost back to baseline no fever no cough patient still complaining of some dragging pain right lower quadrant for last few days Related Data Home Medications Medication Instructions Recorded Confirmed carvedilol 3.125 mg tablet 1 tab PO BID 04/25/22 05/08/22 furosemide 20 mg tablet 1 tab PO DAILY 07/14/22 insulin aspart U-100 100 unit/mL subcut BID 07/14/22 (3 mL) subcutaneous pen (Novolog Flexpen U-100 Insulin aspart) insulin glargine 100 unit/mL (3 20 unit subcut QPM 07/14/22 mL) subcutaneous pen (Lantus Solostar U-100 Insulin) lactulose 10 gram/15 mL oral 15 ml PO QID 07/14/22 solution nystatin 100,000 unit/gram topical topical 07/14/22 powder spironolactone 50 mg tablet 50 mg PO DAILY 07/14/22 (Aldactone) sulfamethoxazole 800 1 tab PO BID 07/14/22 mg-trimethoprim 160 mg tablet Previous Rx's Medication Instructions Recorded oxycodone 5 mg tablet 10 mg PO Q4H PRN severe pain #20 05/05/22 tabs Allergies Allergy/AdvReac Type Severity Reaction Status Date / Time No Known Allergies Allergy Verified 07/19/21 14:20 [No Known Allergies*] Review of Systems Review of Systems: Yes all other systems are reviewed and are negative [facility] Past Medical History Attestation statement: The following information was validated with the patient. Medical History Cirrhosis Cirrhosis Diabetes (~01/31/21) Diabetes mellitus with hyperglycemia Diabetes type 2, controlled Gallstones HTN (hypertension) SBP (spontaneous bacterial peritonitis) UTI (urinary tract infection) UTI (urinary tract infection) UTI due to extended-spectrum beta lactamase (ESBL) producing Escherichia coli Family History Family History Mother No problems noted. Father No problems noted. Social History Social History Household Members: Children Housing: House Do you presently have visiting nurse or other home services: No Alcohol intake: never Patient Tobacco Use Status: Never used Tobacco e-Cigarette/Vaping Use: Never Used Second Hand Smoke Exposure: No Advance Directives: Yes Advance Directives on File: Yes Advance Directives Date on File: 06/15/21 service: No Current occupational status: unemployed and disabled Cognitive needs: No Hearing needs: No Vision needs: No Physical Exam ED Vital Signs: Vital Signs - 24 hr 07/13/22 21:36 07/13/22 22:26 07/13/22 23:37 Temperature 91.2 F L 91.6 F L Pulse Rate 59 60 61 Respiratory Rate 14 14 14 Blood Pressure 100/31 L 100/31 L 91/64 Pulse Oximetry 98 98 96 Oxygen Delivery Method Room Air Room Air Room Air 07/14/22 00:11 07/14/22 01:58 07/14/22 00:57 Temperature 91.9 F L 94.1 F L 92.7 F L Pulse Rate 61 74 69 Respiratory Rate 14 20 21 H Blood Pressure 95/65 104/63 82/54 L Pulse Oximetry 96 96 97 Oxygen Delivery Method Room Air Room Air Room Air 07/14/22 02:22 07/14/22 02:28 07/14/22 02:33 Temperature 94.5 F L 94.5 F L 94.3 F L Pulse Rate 73 71 72 Respiratory Rate 16 18 16 Blood Pressure 101/69 98/56 L 95/65 Pulse Oximetry 100 100 99 Oxygen Delivery Method Room Air Room Air Room Air 07/14/22 02:36 07/14/22 02:40 07/14/22 02:44 Temperature 94.6 F L Pulse Rate 69 76 72 Respiratory Rate 16 16 16 Blood Pressure 95/60 101/69 92/54 L Pulse Oximetry 99 100 100 Oxygen Delivery Method Room Air Room Air Room Air 07/14/22 03:47 07/14/22 04:25 07/14/22 04:17 Temperature 96.1 F L 97.0 F 96.8 F Pulse Rate 91 94 96 Respiratory Rate 18 14 18 Blood Pressure 84/49 L 116/66 90/53 L Pulse Oximetry 99 100 97 Oxygen Delivery Method Room Air Room Air Room Air BMI result Body Mass Index 26.1 Appearance: Alert. Oriented X2-3. No acute distress. Eyes: PERRLA, No Nystagmus ENT: Pharynx normal. Oral Mucosa dry Neck: Normal inspection. Neck supple. CVS: Normal heart rate and rhythm. Pulses normal. Respiratory: No respiratory distress. Equal air entry bilateral, no wheezing/rales/rhonchi Abdomen: Distended with free fluid positive diffuse tenderness lower abdomen most on the right side no rebound tenderness or guarding Bowel sounds are present, no mass palpable, no CVA tenderness Skin: Skin warm and dry. Normal skin color. Normal skin turgor. Extremities: No lower extremity edema. No calf tenderness no hepatic flap Neuro: Oriented X 3. No motor deficit. No sensory deficit.No cerebellar signs , cranial nerves II-XII intact Medications Administered Generic Name Dose Route Start Last Admin Trade Name Freq PRN Reason Stop Dose Admin Ceftriaxone Sodium 1 gm/ 50 mls @ 100 mls/hr 07/14/22 06:00 07/14/22 06:24 Sodium Chloride IV Infused Q24H ODALYS Infusion Discontinued Medications Generic Name Dose Route Start Last Admin Trade Name Freq PRN Reason Stop Dose Admin Dexamethasone Sodium Phosphate 10 mg 07/14/22 00:15 07/14/22 01:02 Dexamethasone Sod Phosphate 10 Mg/Ml Vial IVPUSH 07/14/22 00:16 10 mg ONCE ONE Administration Sodium Chloride 1,000 mls @ 999 mls/hr 07/13/22 21:43 07/13/22 23:36 Ns IV 07/13/22 22:43 Infused .Q1H1M ONE Infusion Cefepime HCl 2 gm/ Sodium 50 mls @ 100 mls/hr 07/13/22 23:43 07/14/22 00:37 Chloride IV 07/14/22 00:12 Infused ONCE ONE Infusion Sodium Chloride 1,000 mls @ 999 mls/hr 07/14/22 01:03 07/14/22 03:03 Ns IV 07/14/22 02:03 Infused .Q1H1M ONE Infusion Albumin Human 100 mls @ 100 mls/hr 07/14/22 01:15 07/14/22 05:46 Kedbumin 25 % IV 07/14/22 03:14 Infused Q1H ODALYS Infusion Sodium Chloride 1,000 mls @ 999 mls/hr 07/14/22 04:08 07/14/22 05:46 Ns IV 07/14/22 05:08 Infused .Q1H1M ONE Infusion Albumin Human 100 mls @ 100 mls/hr 07/14/22 04:15 07/14/22 06:41 Kedbumin 25 % IV 07/14/22 06:14 100 mls/hr Q1H ODALYS Administration Vancomycin HCl 1,000 mg/ 270 mls @ 270 mls/hr 07/14/22 04:11 07/14/22 05:46 Sodium Chloride IV 07/14/22 05:10 Infused ONCE ONE Infusion Thiamine HCl 500 mg/ Sodium 105 mls @ 210 mls/hr 07/14/22 05:34 07/14/22 06:38 Chloride IV 07/14/22 06:03 Infused ONCE ONE Infusion Iohexol 85 ml 07/14/22 03:33 07/14/22 03:33 Iohexol 350 Mg/Ml 100 Ml Infus..Btl IV 07/14/22 03:34 85 ml ONCE ONE Administration Lidocaine HCl 2 ml 07/14/22 01:47 07/14/22 03:02 Lidocaine Hcl 1 % 20 Ml Vial INFILTRATI 07/14/22 01:48 2 ml ONCE ONE Administration Midazolam HCl 1 mg 07/14/22 05:34 07/14/22 05:45 Midazolam Hcl/Pf 2 Mg/2 Ml Vial IVPUSH 07/14/22 05:35 1 mg ONCE ONE Administration Midodrine 10 mg 07/14/22 03:01 07/14/22 03:07 Midodrine Hcl 10 Mg Tablet PO 07/14/22 03:02 10 mg ONCE ONE Administration MDM - Altered Mental Status MDM Narrative Medical decision making narrative: Patient with alcoholic cirrhosis with ascites came with altered mental status history of SBP with E coli patient was hypotensive and hypoglycemic on arrival IV fluids and IV antibiotics were given paracentesis was done 4 L fluid was drained negative for SBP. Patient received albumin and normal saline CT scan of the abdomen showed: CT/CT abdomen pelvis w IV con IMPRESSION: 1.? Cirrhotic liver with small volume ascites. Prominent upper abdominal varices including esophageal varices. 2.? Cholelithiasis. 3.? Right adnexal dermoid. 4.? Fluid-filled appearance of the distal small bowel at the right lower quadrant. There may also be some mild wall thickening of the cecum/ascending colon. This could be associated with enterocolitis. ?During stay in the ER patient had transient unresponsive episodes without any nystagmus or tonic clonic seizure activity patient responded on stimulation head CT was negative. Patient was given IV thiamine for encephalopathy? Blood pressure improved after IV hydration. Medical Records Attestation: I reviewed the patient's medical records. Lab Data Attestation: I reviewed the patient's lab results. Result diagrams: 07/14/22 05:49 07/14/22 05:49 Labs: Lab Results 07/13/22 07/13/22 07/13/22 Range/Units 21:37 22:00 22:00 WBC 5.0 (4.8-10.8) X10*3/uL RBC 4.35 D (4.20-5.50) X10*6/uL Hgb 13.4 (12.0-16.0) g/dl Hct 40.4 (37.0-47.0) % MCV 92.9 (80.0-98.0) fL MCH 30.8 (27.0-33.0) pg MCHC 33.2 (31.0-35.0) g/dl RDW 14.6 (11.0-16.0) % Plt Count 191 (160-400) X10*3/uL MPV 9.8 (9.4-12.3) fL Immature Gran % (Auto) 0.4 (0.0-0.4) % Neut % (Auto) 82.0 H (45-73) % Lymph % (Auto) 14.8 L (20-40) % Boundary % (Auto) 2.4 (2-11) % Eos % (Auto) 0.0 (0-4) % Baso % (Auto) 0.4 (0-2) % Lymph # (Auto) 0.7 L (1.2-4.9) X10*3/uL Boundary # (Auto) 0.1 (0.1-1.2) X10*3/uL Eos # (Auto) 0.0 (0.0-0.4) X10*3/uL Baso # (Auto) 0.0 (0.0-0.2) X10*3/uL Abs Immat Gran (auto) 0.02 (0.00-0.03) X10*3/uL Absolute Neuts (auto) 4.1 (2.0-8.3) x10*3/uL Absolute Nucleated RBC 0.000 (0.0-0.012) X10*3/uL Nucleated RBC % (auto) 0.0 (0.0-0.2) /100WBC PT (10.0-13.1) SEC INR (0.9-1.1) Sodium (135-145) mmol/L Potassium (3.3-5.1) mmol/L Chloride (96-108) mmol/L Carbon Dioxide (22-29) mmol/L Anion Gap (12-20) BUN (9-16) mg/dL Creatinine (0.5-1.4) mg/dL Estim Creat Clear Calc Estimated GFR POC Glucose 143 H (60-115) mg/dL Random Glucose (60-115) mg/dL Lactic Acid (0.5-2.0) mmol/L Calcium (8.4-10.2) mg/dL Magnesium (1.6-2.6) mg/dL Total Bilirubin (0.0-1.0) mg/dL AST (5-31) U/L ALT (0-31) U/L Alkaline Phosphatase (39-117) U/L Ammonia 32 (13-55) umol/L Troponin I High Sens (<3.5-17.0) ng/L Total Protein (6.5-8.0) g/dL Albumin (3.5-5.0) g/dL Lipase (8-78) U/L Peritoneal WBC X10*3/uL Peritoneal RBC X10*6/uL Periton Neutrophils % Periton Lymphocytes % Peritoneal Monocytes % Peritoneal Other Cells % Peritoneal Albumin GM/DL Peritoneal Glucose MG/DL 07/13/22 07/13/22 07/13/22 Range/Units 22:00 22:00 22:00 WBC (4.8-10.8) X10*3/uL RBC (4.20-5.50) X10*6/uL Hgb (12.0-16.0) g/dl Hct (37.0-47.0) % MCV (80.0-98.0) fL MCH (27.0-33.0) pg MCHC (31.0-35.0) g/dl RDW (11.0-16.0) % Plt Count (160-400) X10*3/uL MPV (9.4-12.3) fL Immature Gran % (Auto) (0.0-0.4) % Neut % (Auto) (45-73) % Lymph % (Auto) (20-40) % Boundary % (Auto) (2-11) % Eos % (Auto) (0-4) % Baso % (Auto) (0-2) % Lymph # (Auto) (1.2-4.9) X10*3/uL Boundary # (Auto) (0.1-1.2) X10*3/uL Eos # (Auto) (0.0-0.4) X10*3/uL Baso # (Auto) (0.0-0.2) X10*3/uL Abs Immat Gran (auto) (0.00-0.03) X10*3/uL Absolute Neuts (auto) (2.0-8.3) x10*3/uL Absolute Nucleated RBC (0.0-0.012) X10*3/uL Nucleated RBC % (auto) (0.0-0.2) /100WBC PT 19.2 H (10.0-13.1) SEC INR 1.6 H (0.9-1.1) Sodium 137 (135-145) mmol/L Potassium 4.9 (3.3-5.1) mmol/L Chloride 107 (96-108) mmol/L Carbon Dioxide 25 (22-29) mmol/L Anion Gap 10 L (12-20) BUN 7 L D (9-16) mg/dL Creatinine 0.73 (0.5-1.4) mg/dL Estim Creat Clear Calc 83.0 Estimated GFR > 60 POC Glucose (60-115) mg/dL Random Glucose 95 (60-115) mg/dL Lactic Acid (0.5-2.0) mmol/L Calcium 7.7 L (8.4-10.2) mg/dL Magnesium 1.8 (1.6-2.6) mg/dL Total Bilirubin 1.2 H (0.0-1.0) mg/dL AST 57 H (5-31) U/L ALT 18 (0-31) U/L Alkaline Phosphatase 111 (39-117) U/L Ammonia (13-55) umol/L Troponin I High Sens < 3.5 (<3.5-17.0) ng/L Total Protein 6.5 (6.5-8.0) g/dL Albumin 2.2 L (3.5-5.0) g/dL Lipase 21 (8-78) U/L Peritoneal WBC X10*3/uL Peritoneal RBC X10*6/uL Periton Neutrophils % Periton Lymphocytes % Peritoneal Monocytes % Peritoneal Other Cells % Peritoneal Albumin GM/DL Peritoneal Glucose MG/DL 07/13/22 07/14/22 07/14/22 Range/Units 23:17 00:01 02:22 WBC (4.8-10.8) X10*3/uL RBC (4.20-5.50) X10*6/uL Hgb (12.0-16.0) g/dl Hct (37.0-47.0) % MCV (80.0-98.0) fL MCH (27.0-33.0) pg MCHC (31.0-35.0) g/dl RDW (11.0-16.0) % Plt Count (160-400) X10*3/uL MPV (9.4-12.3) fL Immature Gran % (Auto) (0.0-0.4) % Neut % (Auto) (45-73) % Lymph % (Auto) (20-40) % Boundary % (Auto) (2-11) % Eos % (Auto) (0-4) % Baso % (Auto) (0-2) % Lymph # (Auto) (1.2-4.9) X10*3/uL Boundary # (Auto) (0.1-1.2) X10*3/uL Eos # (Auto) (0.0-0.4) X10*3/uL Baso # (Auto) (0.0-0.2) X10*3/uL Abs Immat Gran (auto) (0.00-0.03) X10*3/uL Absolute Neuts (auto) (2.0-8.3) x10*3/uL Absolute Nucleated RBC (0.0-0.012) X10*3/uL Nucleated RBC % (auto) (0.0-0.2) /100WBC PT (10.0-13.1) SEC INR (0.9-1.1) Sodium (135-145) mmol/L Potassium (3.3-5.1) mmol/L Chloride (96-108) mmol/L Carbon Dioxide (22-29) mmol/L Anion Gap (12-20) BUN (9-16) mg/dL Creatinine (0.5-1.4) mg/dL Estim Creat Clear Calc Estimated GFR POC Glucose 81 (60-115) mg/dL Random Glucose (60-115) mg/dL Lactic Acid 1.8 (0.5-2.0) mmol/L Calcium (8.4-10.2) mg/dL Magnesium (1.6-2.6) mg/dL Total Bilirubin (0.0-1.0) mg/dL AST (5-31) U/L ALT (0-31) U/L Alkaline Phosphatase (39-117) U/L Ammonia (13-55) umol/L Troponin I High Sens (<3.5-17.0) ng/L Total Protein (6.5-8.0) g/dL Albumin (3.5-5.0) g/dL Lipase (8-78) U/L Peritoneal WBC 0.060 X10*3/uL Peritoneal RBC < 0.002 X10*6/uL Periton Neutrophils 2 % Periton Lymphocytes 34 % Peritoneal Monocytes 14 % Peritoneal Other Cells 50 % Peritoneal Albumin GM/DL Peritoneal Glucose MG/DL 07/14/22 07/14/22 Range/Units 02:22 04:35 WBC (4.8-10.8) X10*3/uL RBC (4.20-5.50) X10*6/uL Hgb (12.0-16.0) g/dl Hct (37.0-47.0) % MCV (80.0-98.0) fL MCH (27.0-33.0) pg MCHC (31.0-35.0) g/dl RDW (11.0-16.0) % Plt Count (160-400) X10*3/uL MPV (9.4-12.3) fL Immature Gran % (Auto) (0.0-0.4) % Neut % (Auto) (45-73) % Lymph % (Auto) (20-40) % Boundary % (Auto) (2-11) % Eos % (Auto) (0-4) % Baso % (Auto) (0-2) % Lymph # (Auto) (1.2-4.9) X10*3/uL Boundary # (Auto) (0.1-1.2) X10*3/uL Eos # (Auto) (0.0-0.4) X10*3/uL Baso # (Auto) (0.0-0.2) X10*3/uL Abs Immat Gran (auto) (0.00-0.03) X10*3/uL Absolute Neuts (auto) (2.0-8.3) x10*3/uL Absolute Nucleated RBC (0.0-0.012) X10*3/uL Nucleated RBC % (auto) (0.0-0.2) /100WBC PT (10.0-13.1) SEC INR (0.9-1.1) Sodium (135-145) mmol/L Potassium (3.3-5.1) mmol/L Chloride (96-108) mmol/L Carbon Dioxide (22-29) mmol/L Anion Gap (12-20) BUN (9-16) mg/dL Creatinine (0.5-1.4) mg/dL Estim Creat Clear Calc Estimated GFR POC Glucose 191 H (60-115) mg/dL Random Glucose (60-115) mg/dL Lactic Acid (0.5-2.0) mmol/L Calcium (8.4-10.2) mg/dL Magnesium (1.6-2.6) mg/dL Total Bilirubin (0.0-1.0) mg/dL AST (5-31) U/L ALT (0-31) U/L Alkaline Phosphatase (39-117) U/L Ammonia (13-55) umol/L Troponin I High Sens (<3.5-17.0) ng/L Total Protein (6.5-8.0) g/dL Albumin (3.5-5.0) g/dL Lipase (8-78) U/L Peritoneal WBC X10*3/uL Peritoneal RBC X10*6/uL Periton Neutrophils % Periton Lymphocytes % Peritoneal Monocytes % Peritoneal Other Cells % Peritoneal Albumin 0.6 GM/DL Peritoneal Glucose 115 MG/DL ECG Data ECG #1: Attestation: I personally reviewed and interpreted this ECG as follows: Interpretation: Sinus bradycardia heart rate 59 beats per minute prolonged QT interval QTC of [address]-T changes no acute ischemic Procedures Paracentesis Time Out Performed: Yes Local Anesthetic: lidocaine 1% Amount of anesthesia used (mL): 1 Fluid: clear and sent to lab for analysis (4 L acetic fluid was drained from right lower quadrant ultrasound-guided) Post Procedure Exam: awake, alert Patient Tolerated Procedure: well and no complications Complications: none Discharge Plan Discharge Clinical Impression: Cirrhosis, Ascites, Encephalopathy, Hypoglycemia Patient Disposition: Admitted As Inpatient
[2022-07-13 23:37] VITALS: BP 91/64; PULSE 61; RESP 14; TEMP 33.1; O2SAT 96
[2022-07-13 23:38] LABS: Lactic Acid 1.8 mmol/L (0.5-2.0)
[2022-07-13] MEDS: cefEPime HCl 2 GM in 0.9 % Sodium Chloride 50 ML IV (23:59)
[2022-07-14] VITALS (31 sets, daily range): BP systolic 82–116; BP diastolic 44–69; PULSE 61–128; RESP 12–24; TEMP 33.3–37.2; O2SAT 92–100; BMI 30.7
--- NOTE | 2022-07-14 00:02 | PC.NURSE ---
Repeat POC = 81
[2022-07-14 00:06] LABS: Glucose, Whole Blood 81 mg/dL (60-115)
[2022-07-14] MEDS: dexAMETHasone sod phosphate 10 MG/ML VIAL IVPUSH (01:02)
[2022-07-14] MEDS: Albumin Human 25 % 100 ML IV ×4 (01:54→06:41)
[2022-07-14] MEDS: 0.9 % Sodium Chloride 1,000 ML 999 ML IV ×2 (01:54→04:17)
--- NOTE | 2022-07-14 02:01 | PC.NURSE ---
MD Ralf at bedside to do bedside paracentesis
--- NOTE | 2022-07-14 02:29 | PC.NURSE ---
Bedside paracentesis for a total of 3.5L
[2022-07-14 02:41] LABS: MN% 92.8 %; PMN% 7.2 %
[2022-07-14] MEDS: Lidocaine HCl 1 % 20 ML VIAL INFILTRATI (03:02)
[2022-07-14] MEDS: Midodrine HCl 10 MG TABLET PO (03:07)
[2022-07-14 03:31] LABS: RBC Peritoneal Fluid < 0.002 X10*6/uL
[2022-07-14] MEDS: iohexoL 350 MG/ML 100 ML INFUS..BTL 85 ML IV (03:33)
[2022-07-14 04:05] LABS: BF Shift QC OK YES; Lymphocyte Peritoneal Fl 34 %; Monocytes Peritoneal Fl 14 %; Neutrophils Peritoneal Fluid 2 %
[2022-07-14 04:06] LABS: Other Peritioneal Fl 50 %
[2022-07-14] MEDS: vancomycin HCL 1,000 MG in 0.9 % Sodium Chloride 250 ML 270 MG IV (04:29)
--- NOTE | 2022-07-14 04:30 | PC.NURSE ---
Pt. suddenly became unresponsive with a fixed look on her face. Palpable pulses at the time, SPO2 98%, but would not verbally respond to staff. MD Ralf at bedside to assess. Pt. was visibly shaking and per MD, may have been having a seizure. Over the following moment or two, pt.'s shaking subsided and she began following commands such as hand grasps (which were equal), lifting DUNG legs and DUNG dorsi/plantar extensions. Pupils PERRLA. Rectal temp. 97.2 at the time of event. A few moments later, pt. began to verbalize once again, stating I don't feel good, but wouldn't elaborate further. MD Ralf aware, no new orders at this time.
[2022-07-14 04:41] LABS: Glucose, Whole Blood 191 mg/dL (60-115)
--- NOTE | 2022-07-14 05:25 | PM.IMHP ---
History of Present Illness Date of Service: 07/14/22 Chief Complaint: abd pain, distention 56-year-old female with past medical history of alcoholic liver cirrhosis with ascites, diabetes, hypertension, presents to the hospital after son could not reach her and called EMS. it appears that pt was discharged from [facility] 2 days prior to this presentation where she was treated for infection per pt. Per pt she was there for 2 wks and received paracentesis x2. Patient tells me that she had a fall at home, but denies any loss of consciousness, no chest pain or palpitations prior to falling. According to ED physician her family called EMS as they couldnt reach her on the phone. On arrival of EMS pt found to be hypoglycemic with glucose of 54. given d10 w sig improvement of her. on arrival pt found to be hypothermic with Temp of 91.2 with initial stable BPs that dropped to the 80s/40s. on my exam, BP 110s/50s. pt underwent diagnostic paracentesis in ED and 4 L of fluid was drained. Diagnostic does not show SBP but pt was recently on abx at [facility]. pending records from [facility]. Labs on arrival are significant for count of 5.0, INR of 1.6, troponin less than 3.5, Abdomen pelvis CT shows cirrhotic liver with small volume ascites, prominent upper abdominal varices including esophageal varices, cholelithiasis, right adnexal dermoid, fluid-filled appearance of the distal small bowel at the right lower quadrant, possibly enterocolitis According to ED physician, pt had vague presentation that resembled seizures in ED but she was awake. she received 1 dose of 1 mg Versed as well as dexamethasone for the ypotension. Review of Systems Review of Systems: Yes all other systems are reviewed and are negative [facility] Medical History Cirrhosis Cirrhosis Diabetes (~01/31/21) Diabetes mellitus with hyperglycemia Diabetes type 2, controlled Gallstones HTN (hypertension) SBP (spontaneous bacterial peritonitis) UTI (urinary tract infection) UTI (urinary tract infection) UTI due to extended-spectrum beta lactamase (ESBL) producing Escherichia coli Family History Mother No problems noted. Father No problems noted. Social History Household Members: Children Housing: House Do you presently have visiting nurse or other home services: No Alcohol intake: never Patient Tobacco Use Status: Never used Tobacco e-Cigarette/Vaping Use: Never Used Second Hand Smoke Exposure: No Advance Directives: Yes Advance Directives on File: Yes Advance Directives Date on File: 06/15/21 service: No Current occupational status: unemployed and disabled Cognitive needs: No Hearing needs: No Vision needs: No Meds Allergies Allergy/AdvReac Type Severity Reaction Status Date / Time No Known Allergies Allergy Verified 07/19/21 14:20 [No Known Allergies*] Active Medications: Current Medications Albumin Human (Kedbumin 25 %) 100 mls @ 100 mls/hr IV Q1H ODALYS Stop: 07/14/22 06:14 Last Admin: 07/14/22 04:23 Dose: 100 mls/hr Pharmacy Consult (Consult Rx Vancomycin Dosing) 1 each MISCELLANE DAILY PRN PRN Reason: Consult order Home Medications Medication Instructions Recorded Confirmed Last Taken Type carvedilol 3.125 mg tablet 1 tab PO BID 04/25/22 05/08/22 05/07/22 History furosemide 20 mg tablet 1 tab PO DAILY 07/14/22 Unknown History insulin aspart U-100 100 unit/mL subcut BID 07/14/22 Unknown History (3 mL) subcutaneous pen (Novolog Flexpen U-100 Insulin aspart) insulin glargine 100 unit/mL (3 20 unit subcut QPM 07/14/22 Unknown History mL) subcutaneous pen (Lantus Solostar U-100 Insulin) lactulose 10 gram/15 mL oral 15 ml PO QID 07/14/22 Unknown History solution nystatin 100,000 unit/gram topical topical 07/14/22 Unknown History powder spironolactone 50 mg tablet 50 mg PO DAILY 07/14/22 Unknown History (Aldactone) sulfamethoxazole 800 1 tab PO BID 07/14/22 Unknown History mg-trimethoprim 160 mg tablet Physical Exam Vital Signs and Narrative: Vital Signs: Last Vital Signs Temp 97.0 F 07/14/22 04:25 Pulse 94 07/14/22 04:25 Resp 14 07/14/22 04:25 BP 116/66 07/14/22 04:25 Pulse Ox 100 07/14/22 04:25 O2 Del Method 07/14/22 04:25 BMI result Body Mass Index 26.1 Const: Other: pt alert, awake, answering questions appropriately General: cooperative and no acute distress Eyes: General: appearance normal, both eyes and all related structures Resp: Effort & Inspection: normal respiratory effort Auscultation: clear to auscultation bilaterally Cardio: Rate: regular rate Rhythm: regular rhythm GI: Other: Abdomen is distended, tender on palpation, worse on the right lower quadrant Palpation (GI): Soft to palpation Auscultation: normal bowel sounds Skin: Other: Bruising along the medial aspect of right lower extremity General skin exam: no rashes or lesions noted Neuro: Cognition (Neuro): normal cognition Extrem: General: Yes normal to inspection and Yes no pedal edema Results Labs CBC and Chem 7: 07/14/22 05:49 07/14/22 05:49 Labs: Laboratory Results - last 24 hr 07/13/22 07/13/22 07/13/22 21:37 22:00 22:00 MCV 92.9 MCH 30.8 MCHC 33.2 RDW 14.6 Plt Count 191 MPV 9.8 Immature Gran % (Auto) 0.4 Neut % (Auto) 82.0 H Lymph % (Auto) 14.8 L Merrick % (Auto) 2.4 Eos % (Auto) 0.0 Baso % (Auto) 0.4 Lymph # (Auto) 0.7 L Merrick # (Auto) 0.1 Eos # (Auto) 0.0 Baso # (Auto) 0.0 Abs Immat Gran (auto) 0.02 Absolute Neuts (auto) 4.1 Absolute Nucleated RBC 0.000 Nucleated RBC % (auto) 0.0 PT INR Anion Gap Estim Creat Clear Calc Estimated GFR POC Glucose 143 H Random Glucose Lactic Acid Calcium Magnesium Total Bilirubin AST ALT Alkaline Phosphatase Ammonia 32 Troponin I High Sens Total Protein Albumin Lipase Peritoneal WBC Peritoneal RBC Periton Neutrophils Periton Lymphocytes Peritoneal Monocytes Peritoneal Other Cells 07/13/22 07/13/22 07/13/22 22:00 22:00 22:00 MCV MCH MCHC RDW Plt Count MPV Immature Gran % (Auto) Neut % (Auto) Lymph % (Auto) Merrick % (Auto) Eos % (Auto) Baso % (Auto) Lymph # (Auto) Merrick # (Auto) Eos # (Auto) Baso # (Auto) Abs Immat Gran (auto) Absolute Neuts (auto) Absolute Nucleated RBC Nucleated RBC % (auto) PT 19.2 H INR 1.6 H Anion Gap 10 L Estim Creat Clear Calc 83.0 Estimated GFR > 60 POC Glucose Random Glucose 95 Lactic Acid Calcium 7.7 L Magnesium 1.8 Total Bilirubin 1.2 H AST 57 H ALT 18 Alkaline Phosphatase 111 Ammonia Troponin I High Sens < 3.5 Total Protein 6.5 Albumin 2.2 L Lipase 21 Peritoneal WBC Peritoneal RBC Periton Neutrophils Periton Lymphocytes Peritoneal Monocytes Peritoneal Other Cells 07/13/22 07/14/22 07/14/22 23:17 00:01 02:22 MCV MCH MCHC RDW Plt Count MPV Immature Gran % (Auto) Neut % (Auto) Lymph % (Auto) Merrick % (Auto) Eos % (Auto) Baso % (Auto) Lymph # (Auto) Merrick # (Auto) Eos # (Auto) Baso # (Auto) Abs Immat Gran (auto) Absolute Neuts (auto) Absolute Nucleated RBC Nucleated RBC % (auto) PT INR Anion Gap Estim Creat Clear Calc Estimated GFR POC Glucose 81 Random Glucose Lactic Acid 1.8 Calcium Magnesium Total Bilirubin AST ALT Alkaline Phosphatase Ammonia Troponin I High Sens Total Protein Albumin Lipase Peritoneal WBC 0.060 Peritoneal RBC < 0.002 Periton Neutrophils 2 Periton Lymphocytes 34 Peritoneal Monocytes 14 Peritoneal Other Cells 50 07/14/22 04:35 MCV MCH MCHC RDW Plt Count MPV Immature Gran % (Auto) Neut % (Auto) Lymph % (Auto) Merrick % (Auto) Eos % (Auto) Baso % (Auto) Lymph # (Auto) Merrick # (Auto) Eos # (Auto) Baso # (Auto) Abs Immat Gran (auto) Absolute Neuts (auto) Absolute Nucleated RBC Nucleated RBC % (auto) PT INR Anion Gap Estim Creat Clear Calc Estimated GFR POC Glucose 191 H Random Glucose Lactic Acid Calcium Magnesium Total Bilirubin AST ALT Alkaline Phosphatase Ammonia Troponin I High Sens Total Protein Albumin Lipase Peritoneal WBC Peritoneal RBC Periton Neutrophils Periton Lymphocytes Peritoneal Monocytes Peritoneal Other Cells Imaging Radiologist's Impressions: Impressions Chest X-Ray 07/13/22 22:10 IMPRESSION: No consolidation. Linear left basilar atelectasis/scarring. Abdomen/Pelvis CT 07/14/22 03:30 IMPRESSION: 1. Cirrhotic liver with small volume ascites. Prominent upper abdominal varices including esophageal varices. 2. Cholelithiasis. 3. Right adnexal dermoid. 4. Fluid-filled appearance of the distal small bowel at the right lower quadrant. There may also be some mild wall thickening of the cecum/ascending colon. This could be associated with enterocolitis. Fleischner guidelines were followed. Assessment and Plan (1) Encephalopathy: Status: Acute (2) Hypoglycemia: Status: Acute (3) Hypothermia: Status: Acute (4) Enterocolitis: Status: Acute (5) Cirrhosis: Status: Acute (6) Ascites: Status: Acute Plan 48-year-old female past medical history of alcoholic liver cirrhosis with multiple admissions in the past, no recent hospital discharge from [facility] 2 days prior to presentation comes into the hospital with hypoglycemia and altered mental status # encephalopathy - likely toxic metabolic metabolic and multifactorial - patient hypoglycemic hypothermic on arrival likely contributed to her encephalopathy - patient currently alert oriented to self and place and able to answer questions appropriately - monitor mentation # hypoglycemia - likely in the setting of liver cirrhosis - improved on D10 - follow glucose level # hypothermia - unclear etiology at this time, diagnostic thoracentesis negative for any evidence of SBP although patient was recently discharged from the hospital at [facility] and was treated with antibiotics - on review of her medications patient seems to be on Bactrim - prophylactically treated with ceftriaxone, patient also has evidence of enterocolitis and abdominal CT - Tx with Hawa hgger with improvement in her temp - vitals Q4hrs # enterocolitis - a seen on CT of the abdomen - will treat with ceftriaxone and flagyl - follow cultures #Hypotension - possibly caused by infection vs adrenal insufficiency saul likley - received 3 L of Iv bolus, as well as 10 mg of dexamethasone with slight improvement of bp - pt receiving albumin infusion - will monitor BP, if remains hypotensive, will consider higher level of care - will send cortisol random # ascites - in the setting of alcoholic liver cirrhosis - patient received 4 L of paracentesis diagnostic and therapeutic - fluid analysis not show SBP at this time but patient was recently on antibiotics - will prophylactically treat with ceftriaxone - GI consulted # coagulopathy - secondary to liver cirrhosis - monitor PT INR DVT prophylaxis: SCDs in the setting of underlying coagulopathy - given patient's in cephalopathy, hypothermia, hypotension patient will likely require a minimum 2 night inpatient hospital stay for further management monitoring Quality Stroke Does the patient have a stroke diagnosis?: No VTE Prior VTE?: No VTE Risk Level:: Medical - moderate - high VTE Device Contraindication: N/A - Device Ordered VTE Drug Contraindication: Treatment Not Indicated
[2022-07-14 05:36] LABS: Albumin Peritoneal Fluid 0.6 GM/DL; Glucose Peritoneal Fluid 115 MG/DL
--- NOTE | 2022-07-14 05:40 | PC.NURSE ---
COVID swab collected and sent as ordered
--- NOTE | 2022-07-14 05:43 | PC.NURSE ---
Awaiting nursing supervisor pit and auxiliaries to bring Albumin to ED for this pt. Albumin not loaded in ED Pyxis at this time.
--- NOTE | 2022-07-14 05:43 | PC.NURSE ---
Pt. had another episode of unresponsiveness/shaking/question seizure per MD Ralf. Seizure pads have been in place since previous episode. IVP Versed 1mg x1 administered per OCT.
[2022-07-14] MEDS: Midazolam HCl/PF 2 MG/2 ML VIAL 1 MG IVPUSH (05:45)
[2022-07-14] MEDS: cefTRIAXone sodium 1 GM in 0.9 % Sodium Chloride 50 ML IV (05:53)
[2022-07-14] MEDS: Thiamine HCL 500 MG in 0.9 % Sodium Chloride 100 ML 210 MG IV (05:57)
[2022-07-14 06:02] LABS: Basophils Percent Auto 0.2 % (0-2); Hematocrit 29.6 % (37.0-47.0); Imm Gran Abs Auto 0.01 X10*3/uL (0.00-0.03); Imm Gran Pct Auto 0.2 % (0.0-0.4); Lymphocytes Absolute Auto 0.3 X10*3/uL (1.2-4.9); Lymphocytes Percent Auto 5.8 % (20-40); MANUAL DIFF FLAG SCAN; Mean Corpuscular HGB Conc 33.4 g/dl (31.0-35.0); Mean Corpuscular Hemoglobin 31.3 pg (27.0-33.0); Mean Corpuscular Volume 93.7 fL (80.0-98.0); Mean Platelet Volume 10.1 fL (9.4-12.3); Monocytes Percent Auto 0.6 % (2-11); Neutrophils Absolute Auto 4.5 x10*3/uL (2.0-8.3); Neutrophils Percent Auto 93.2 % (45-73); Platelet Count 115 X10*3/uL (160-400); Red Blood Count 3.16 X10*6/uL (4.20-5.50); Red Cell Distribution Width 14.5 % (11.0-16.0); SCAN SMEAR FLAG 1; White Blood Count 4.8 X10*3/uL (4.8-10.8)
[2022-07-14 06:07] LABS: COVID-19 Test Negative (Negative); IDNOW Serial# 16C4AD1C
[2022-07-14 06:14] LABS: Hemoglobin 9.9 g/dl (12.0-16.0)
[2022-07-14 06:28] LABS: Anion Gap 13 (12-20); Blood Urea Nitrogen 9 mg/dL (9-16); Calcium 7.4 mg/dL (8.4-10.2); Carbon Dioxide 17 mmol/L (22-29); Chloride 110 mmol/L (96-108); Creatinine Clr Calc Pharmacy 89.2; Estimated Glomerular Filt Rate > 60; Glucose Random 190 mg/dL (60-115); Potassium 4.1 mmol/L (3.3-5.1); Sodium 136 mmol/L (135-145)
[2022-07-14 06:38] LABS: SLIDE REVIEW VERIFIED
[2022-07-14 07:36] LABS: Glucose, Whole Blood 190 mg/dL (60-115)
[2022-07-14] MEDS: metroNIDAZOLE/NS 500 MG/100 ML PIGGYBACK 100 MG IV ×2 (08:16→16:03)
[2022-07-14] MEDS: 0.9 % Sodium Chloride Flush 3 ML SYRINGE IVFLUSH ×2 (08:17→16:02)
--- NOTE | 2022-07-14 08:55 | W.PM.CCCN ---
History of Present Illness Data of Consult Service Date: 07/14/22 Requesting physician: Gustabo Lozano Primary Care Provider: Eden Carrillo MD [facility] Reason for consult: Hypotension A 56-year-old female with alcoholic cirrhosis with both hepatic insufficiency as well as portal hypertension but no history of bleeding and she presents with 1 of multiple hospitalizations and having had multiple paracenteses she had 4 L removed because she was complaining of abdominal pain and after that there was a 3 g drop in her hemoglobin and apparently some increased intra-abdominal pain when I came there you could you could barely touch the the scan without her crying and I repeated the CT scan in that clearly was a change in the nature of the fluid with the overall volume being the same but this time it was a complex fluid presumably a bleed and intraperitoneally and she subsequently became hypotensive and required large a volume replacement with both crystalloid and colloid no transfusion yet as a follow-up hemoglobin that is yet pending but she ultimately for a very soft mean arterial pressure required vasopressin at 0.01 units/minute for a a mean arterial pressure of 64 keeping her systolic pressure at about 95 johnnie slightly greater and she remains in sinus rhythm nothing acute 98% oxygen saturation and apparently had an extensive history that I read through in its entirety several admissions over at [facility] There she had paracentesis done several times she did have an elevated white count and although there was no growth from the ascites she apparently had a alec nephric abscess of that was ultimately drain by Interventional Radiology and she was treated with IV ceftriaxone because it grew a sensitive E coli and the 10 day course was completed with oral Bactrim and she presents here afebrile. Ascitic fluid here showed that she had a albumin gradient from serum to ascites of greater than 1.1 but she had an insignificant white count a negative Gram stain and of course cultures are now pending and there was no evidence of perinephric abscess noted on the CT scan of her abdomen but there was some evidence of some wall thickening in the ascending colon implying some focal area of colitis and this was also noted on the CT scanning back over the [facility] so this seems to be a chronic issue and could be part and parcel of her portal hypertension No altered bowel movements no nausea and vomiting and she has a negative procalcitonin She had had a witnessed but appears to be seizure episode followed by staring without responsiveness and then spontaneous resolution following 5 a 6 minutes of this episode we never had to give her anything for it apparently that been extensively worked up right down to CSF analysis clearly no evidence of infection but there was an elevated protein of 130 mg% and the specific electrophoresis must be still pending but there was no white count no evidence of infection within normal glucose and serially negative head CT scan as well and 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 they had her on Keppra and they discontinued it at some point She did not have an elevated ammonia level this time around but she did present with hypoglycemia and that was remedied and has not been an issue since and it was she was not hypoglycemic at the time that she had a pseudo-seizure Bedside echo I could not evaluate the IVC her abdomen was too tender but she had normal LV and RV function with no primary valve or pericardial disease and lungs both to examined and chest x-ray negative She is an insulin-dependent type 2 diabetic and for portal hypertension was on Coreg furosemide spironolactone and takes oxycodone chronically for her diffuse aches and pains Review of Systems Review of Systems: No described fever chills no altered bowel habits no nausea vomiting PMFSH Past Medical History Medical History (Updated 07/14/22 @ 16:12 by Gustabo Lozano MD) Cirrhosis Cirrhosis Diabetes (~01/31/21) Diabetes mellitus with hyperglycemia Diabetes type 2, controlled Gallstones Hepatic failure due to alcoholism HTN (hypertension) Kidney, perinephric abscess Portal hypertension SBP (spontaneous bacterial peritonitis) UTI (urinary tract infection) UTI (urinary tract infection) UTI due to extended-spectrum beta lactamase (ESBL) producing Escherichia coli Varices of other sites Family History Family History Mother No problems noted. Father No problems noted. Social History Social History Household Members: Children Household Members Other:: Patient's son Housing: House Do you presently have visiting nurse or other home services: No Alcohol intake: never Patient Tobacco Use Status: Never used Tobacco e-Cigarette/Vaping Use: Never Used Second Hand Smoke Exposure: No Advance Directives Date on File: 06/15/21 service: No Current occupational status: unemployed and disabled Cognitive needs: No Hearing needs: No Vision needs: No Meds Allergies Allergy/AdvReac Type Severity Reaction Status Date / Time No Known Allergies Allergy Verified 07/19/21 14:20 [No Known Allergies*] Active Medications: Current Medications Dextrose (Dextrose 50 % 25 Gm/50 Ml Syringe) 25 gm IVPUSH Q15M PRN; Protocol PRN Reason: per Hypoglycemia Standing Ord. Docusate Sodium (Docusate Sodium 100 Mg Capsule) 100 mg PO DAILY PRN PRN Reason: Constipation Glucose (Glucose Gel 15 Gm Gel..Gram.) 15 gm PO Q15M PRN; Protocol PRN Reason: per Hypoglycemia Standing Ord. Ceftriaxone Sodium 1 gm/ (Sodium Chloride) 50 mls @ 100 mls/hr IV Q24H [facility] Last Infusion: 07/14/22 06:24 Dose: Infused Metronidazole (Flagyl) 500 mg in 100 mls @ 100 mls/hr IV Q8H [facility] Last Admin: 07/14/22 08:16 Dose: 100 mls/hr Insulin Human Lispro (Insulin Lispro 100 Unit/Ml 3 Ml Vial) 0 unit SUBCUT Q6H [facility]; Protocol Stop: 07/15/22 08:51 Ondansetron HCl (Ondansetron Hcl 4 Mg/2 Ml Vial) 4 mg IVPUSH Q8H PRN PRN Reason: Nausea and Vomiting Pharmacy Consult (Consult Rx Perform Med Rec) 1 each MISCELLANE ONCE PRN PRN Reason: Consult order Rifaximin (Rifaximin 550 Mg Tablet) 550 mg PO TID [facility] Sodium Chloride (0.9 % Sodium Chloride Flush 3 Ml Syringe) 3 ml IVFLUSH QSHIFT [facility] Last Admin: 07/14/22 08:17 Dose: 3 ml Home Medications Medication Instructions Recorded Confirmed Last Taken Type carvedilol 3.125 mg tablet 3.125 mg PO BID 04/25/22 07/14/22 05/07/22 History furosemide 20 mg tablet 20 mg PO DAILY 07/14/22 07/14/22 Unknown History insulin glargine 100 unit/mL (3 20 unit subcut QPM 07/14/22 07/14/22 Unknown History mL) subcutaneous pen (Lantus Solostar U-100 Insulin) lactulose 10 gram/15 mL oral 15 ml PO QID 07/14/22 07/14/22 Unknown History solution nystatin 100,000 unit/gram topical 1 appl topical DAILY 07/14/22 07/14/22 Unknown History powder spironolactone 50 mg tablet 50 mg PO DAILY 07/14/22 07/14/22 Unknown History (Aldactone) sulfamethoxazole 800 1 tab PO BID 07/14/22 07/14/22 Unknown History mg-trimethoprim 160 mg tablet Physical Exam Vital Signs: Vital Signs: Last Vital Signs Temp 97.5 F 07/14/22 06:19 Pulse 95 07/14/22 06:19 Resp 18 07/14/22 06:19 BP 85/44 L 07/14/22 06:19 Pulse Ox 98 07/14/22 06:19 O2 Del Method 07/14/22 06:19 BMI result Body Mass Index 26.1 Awake alert oriented and nonfocal neurologically Bedside echo with normal anatomy Abdomen of course distended diffusely tender and guarded and the diagnosis of intraperitoneal bleed following the paracentesis was made by CT scan Lungs clear and skin intact Results Labs CBC & Chem 7: 07/14/22 05:49 07/14/22 05:49 Labs: Short CBC 07/13/22 07/14/22 Range/Units 22:00 05:49 WBC 5.0 4.8 (4.8-10.8) X10*3/uL Hgb 13.4 9.9 L D (12.0-16.0) g/dl Hct 40.4 29.6 L D (37.0-47.0) % Plt Count 191 115 L D (160-400) X10*3/uL BMP 07/13/22 07/14/22 22:00 05:49 Sodium 137 136 Potassium 4.9 4.1 Chloride 107 110 H Carbon Dioxide 25 17 L BUN 7 L D 9 Creatinine 0.73 0.68 Calcium 7.7 L 7.4 L Liver Function 07/13/22 Range/Units 22:00 Total Bilirubin 1.2 H (0.0-1.0) mg/dL AST 57 H (5-31) U/L ALT 18 (0-31) U/L Alkaline Phosphatase 111 (39-117) U/L Albumin 2.2 L (3.5-5.0) g/dL Microbiology Microbiology Results: Microbiology 07/14/22 02:22 Peritoneal Fluid Gram Stain - Final Assessment and Plan (1) Enterocolitis: Status: Acute (2) Hypothermia: Status: Acute (3) Encephalopathy: Status: Acute (4) Hypoglycemia: Status: Acute (5) Hyperglycemia: Status: Acute (6) SBP (spontaneous bacterial peritonitis): Status: Acute (7) Cirrhosis: Status: Acute (8) Ascites: Status: Acute (9) Hepatic failure due to alcoholism: Status: Acute (10) Portal hypertension: Status: Acute (11) Varices of other sites: Status: Acute (12) Hypotension: Status: Acute Plan The plan is to maintain the low-dose of vasopressin and to start her on a diet follow lab work most especially her hemoglobin serially and follow her coagulation status to be sure she is not consuming such as in a DIC issue as we await the results of the culture of her ascites fluid
[2022-07-14 09:14] LABS: Venous Blood Gas Refer to POC result
[2022-07-14 09:15] LABS: VBG Base Excess -4.9 mmol/L; VBG HCO3 16 mmol/L (22-26); VBG pCO2 22 mmHg; VBG pH 7.48 (7.32-7.43); VBG pO2 89 mmHg
[2022-07-14 09:27] LABS: Glucose, Whole Blood 175 mg/dL (60-115)
[2022-07-14 09:49] LABS: Procalcitonin 0.12 ng/mL
--- NOTE | 2022-07-14 09:50 | PC.NURSE ---
pt in CT about to transfer to their board for scan and pt began with seizure like activity, pupils dilated and unresponsive to stimuli, pt was unable to respond. no tonic-clonic movements at the time. pt remained unresponsive for approx 1 min before regaining ability to communicate and follow directions. pt vitals remained stable throughout. pt able to complete CT scan and has been conversing with staff since.
--- NOTE | 2022-07-14 09:58 | PHA.MEDREC ---
Pharmacy Consult ? Medication Reconciliation Pharmacy has completed the medication reconciliation. Patient is unresponsive and I was unable to get a medication list or confirmation of her at home medications. I entered medications based on claim history with her preferred pharmacy.
[2022-07-14 10:22] LABS: Appearance Urine Clear; Color Urine Dark Yellow; Glucose Urine UA 100 mg/dL (Negative); Leukocyte Esterase Urine Negative (Negative); Nitrite Urine Negative (Negative); PH 6.5 (5.0-9.0); Specific Gravity - Urine >= 1.030 (1.005-1.025); Urine Blood Negative (Negative); Urine Ketones Trace mg/dL (Negative); Urine Protein Trace mg/dL (Neg-Trace)
[2022-07-14 10:29] LABS: Amphetamine Screen Urine Not Detected (Not Detect); Barbiturates, Urine Not Detected (Not Detect); Benzodiazepines Screen Urine Not Detected (Not Detect); Cannabinoid Screen Urine Not Detected (Not Detect); Cocaine Screen Urine Not Detected (Not Detect); Fentanyl, urine Not Detected (Not Detect); Opiate Screen Urine Not Detected (Not Detect); Phencyclidine Screen Urine Not Detected (Not Detect)
[2022-07-14 10:48] LABS: Glucose, Whole Blood 176 mg/dL (60-115)
[2022-07-14 12:08] LABS: Glucose, Whole Blood 177 mg/dL (60-115)
[2022-07-14] MEDS: rifAXIMin 550 MG TABLET PO ×3 (12:34→21:48)
--- NOTE | 2022-07-14 13:14 | CONS_ITS ---
DATE OF SERVICE: 07/14/2022 REFERRING PHYSICIAN: Gabriel Alonzo REASON FOR CONSULTATION: Ascites. HISTORY OF PRESENT ILLNESS: The patient is a pleasant 56-year-old woman with a history of cryptogenic cirrhosis with complications including ascites and spontaneous bacterial peritonitis, who was admitted to the hospital after presenting to the emergency room on July 13 with complaints of fall at home and confusion. She was noted to be hypoglycemic and improved after administration of glucose. Records indicate that she was recently discharged from [place] after being hospitalized for 2 weeks with an infection. She underwent paracentesis there according to records and in the emergency department here had paracentesis of 4 L of ascites fluid, which was negative for SBP. Post procedure, she had hypotension and has been transferred to the ICU. Follow up CT scanning showed increased attenuation of the intraperitoneal fluid compared to her previous examination, suspicious for hemoperitoneum. She did have a drop in her hematocrit as well and has had some post paracentesis right lower quadrant pain. PAST MEDICAL HISTORY: 1. Cirrhosis with ascites and spontaneous bacterial peritonitis. 2. Diabetes. 3. Hypertension. 4. Urinary tract infection. CURRENT MEDICATIONS: Current medication list is reviewed in the chart. ALLERGIES: THERE ARE NONE REPORTED. FAMILY HISTORY: Positive for primary biliary cirrhosis in her mother. SOCIAL HISTORY: There is no current tobacco, alcohol, or substance abuse. REVIEW OF SYSTEMS: SKIN: No pruritus. HEENT: Negative. CARDIOPULMONARY: She denies shortness of breath or chest pain. GASTROINTESTINAL: As above. GENITOURINARY: Negative. NEUROPSYCHIATRIC: Negative. PHYSICAL EXAMINATION: GENERAL: Shows a pleasant female, lying comfortably in bed. VITAL SIGNS: Reviewed in the electronic medical record and are stable. SKIN: Anicteric. HEENT: Shows no scleral icterus. NECK: Without lymphadenopathy or thyromegaly. LUNGS: Clear. HEART: Shows regular rate and rhythm. S1, S2. No murmur. ABDOMEN: Distended. Bowel sounds are present. There is a dressing in the right lower quadrant where her paracentesis was done. EXTREMITIES: Show edema. LABORATORY DATA: Laboratory data and CT scanning are reviewed. IMPRESSION: Cirrhosis with ascites. Her course is consistent with post paracentesis bleeding from her procedure. I would recommend monitoring her hematocrit and following this carefully. She may need blood transfusion. Her paracentesis shows no evidence of SBP. There was a concern on her CAT scan of possible enterocolitis, although reviewing her films, this seems more consistent with changes related to hypoalbuminemia and ascites. Thanks for asking me to see her. I will follow her in the hospital with you. MD ODESSA Ludwig/LYNDSEY / [id number]
[2022-07-14] MEDS: HYDROmorphone HCl 0.5 MG/0.5 ML SYRINGE IVPUSH ×2 (15:55→20:28)
[2022-07-14] MEDS: Pregabalin 25 MG CAPSULE PO ×2 (16:01→20:35)
[2022-07-14 16:32] LABS: MANUAL DIFF FLAG NO
[2022-07-14 16:34] LABS: Hematocrit 27.2 % (37.0-47.0); Imm Gran Abs Auto 0.03 X10*3/uL (0.00-0.03); Imm Gran Pct Auto 0.5 % (0.0-0.4); Lymphocytes Absolute Auto 0.5 X10*3/uL (1.2-4.9); Lymphocytes Percent Auto 8.1 % (20-40); Mean Corpuscular HGB Conc 33.1 g/dl (31.0-35.0); Mean Corpuscular Hemoglobin 30.6 pg (27.0-33.0); Mean Corpuscular Volume 92.5 fL (80.0-98.0); Mean Platelet Volume 9.6 fL (9.4-12.3); Monocytes Absolute Auto 0.1 X10*3/uL (0.1-1.2); Monocytes Percent Auto 1.6 % (2-11); Neutrophils Absolute Auto 5.6 x10*3/uL (2.0-8.3); Neutrophils Percent Auto 89.8 % (45-73); Platelet Count 111 X10*3/uL (160-400); Red Blood Count 2.94 X10*6/uL (4.20-5.50); Red Cell Distribution Width 14.5 % (11.0-16.0); White Blood Count 6.3 X10*3/uL (4.8-10.8)
[2022-07-14 16:36] LABS: OBS Int Ctl Valid YES; OBS1 NEGATIVE (NEGATIVE)
[2022-07-14 16:39] LABS: INTERNATIONAL NORM RATIO 2.5 (0.9-1.1); Prothrombin Time 29.5 SEC (10.0-13.1)
[2022-07-14 16:47] LABS: Anion Gap 12 (12-20); Blood Urea Nitrogen 11 mg/dL (9-16); Calcium 7.6 mg/dL (8.4-10.2); Carbon Dioxide 19 mmol/L (22-29); Chloride 111 mmol/L (96-108); Estimated Glomerular Filt Rate > 60; Glucose Random 224 mg/dL (60-115); Magnesium 1.7 mg/dL (1.6-2.6); Potassium 4.3 mmol/L (3.3-5.1); Sodium 138 mmol/L (135-145)
[2022-07-14 17:24] LABS: Glucose, Whole Blood 204 mg/dL (60-115)
[2022-07-14] MEDS: Insulin Lispro 100 UNIT/ML 3 ML VIAL SUBCUT ×2 (18:06→20:31)
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
[2022-07-14 19:39] LABS: CDiff Gene PCR NEGATIVE (Negative)
[2022-07-14] MEDS: ondansetron HCL 4 MG/2 ML VIAL IVPUSH (20:43)
[2022-07-14 21:06] LABS: Glucose, Whole Blood 273 mg/dL (60-115)
[2022-07-15] VITALS (24 sets, daily range): BP systolic 92–109; BP diastolic 53–68; PULSE 82–89; RESP 10–24; TEMP 35.8–37.2; O2SAT 91–96; BMI 31.4
[2022-07-15] MEDS: metroNIDAZOLE/NS 500 MG/100 ML PIGGYBACK 100 MG IV (00:02)
[2022-07-15] MEDS: 0.9 % Sodium Chloride Flush 3 ML SYRINGE IVFLUSH ×3 (00:13→16:48)
[2022-07-15 05:33] LABS: MANUAL DIFF FLAG NO
[2022-07-15 05:36] LABS: Basophils Percent Auto 0.4 % (0-2); Hematocrit 26.5 % (37.0-47.0); Hemoglobin 8.8 g/dl (12.0-16.0); Imm Gran Abs Auto 0.02 X10*3/uL (0.00-0.03); Imm Gran Pct Auto 0.3 % (0.0-0.4); Lymphocytes Absolute Auto 0.8 X10*3/uL (1.2-4.9); Lymphocytes Percent Auto 11.2 % (20-40); Mean Corpuscular HGB Conc 33.2 g/dl (31.0-35.0); Mean Corpuscular Hemoglobin 31.3 pg (27.0-33.0); Mean Corpuscular Volume 94.3 fL (80.0-98.0); Monocytes Absolute Auto 0.4 X10*3/uL (0.1-1.2); Monocytes Percent Auto 5.3 % (2-11); Neutrophils Absolute Auto 5.8 x10*3/uL (2.0-8.3); Neutrophils Percent Auto 82.8 % (45-73); Platelet Count 116 X10*3/uL (160-400); Red Blood Count 2.81 X10*6/uL (4.20-5.50); Red Cell Distribution Width 14.8 % (11.0-16.0)
[2022-07-15] MEDS: cefTRIAXone sodium 1 GM in 0.9 % Sodium Chloride 50 ML IV (05:47)
[2022-07-15 06:10] LABS: Anion Gap 12 (12-20); Blood Urea Nitrogen 13 mg/dL (9-16); Calcium 7.8 mg/dL (8.4-10.2); Carbon Dioxide 20 mmol/L (22-29); Chloride 109 mmol/L (96-108); Creatinine Clr Calc Pharmacy 82.7; Estimated Glomerular Filt Rate > 60; Glucose Random 236 mg/dL (60-115); Magnesium 1.8 mg/dL (1.6-2.6); Phosphorus 2.5 mg/dL (2.7-4.5); Potassium 4.4 mmol/L (3.3-5.1); Sodium 137 mmol/L (135-145)
[2022-07-15 07:28] LABS: Glucose, Whole Blood 224 mg/dL (60-115)
[2022-07-15] MEDS: Midazolam HCl/PF 2 MG/2 ML VIAL IVPUSH (08:26)
[2022-07-15] MEDS: HYDROmorphone HCl 0.5 MG/0.5 ML SYRINGE IVPUSH ×2 (08:45)
[2022-07-15] MEDS: Albumin Human 25 % 100 ML IV ×4 (10:11→20:18)
[2022-07-15] MEDS: ondansetron HCL 4 MG/2 ML VIAL IVPUSH (10:36)
[2022-07-15] MEDS: rifAXIMin 550 MG TABLET PO ×3 (10:36→21:41)
[2022-07-15] MEDS: Pregabalin 25 MG CAPSULE PO ×2 (10:37→21:41)
[2022-07-15] MEDS: Insulin Lispro 100 UNIT/ML 3 ML VIAL SUBCUT ×3 (10:56→21:41)
[2022-07-15 12:16] LABS: Total Protein Peritoneal Fluid 1.5
[2022-07-15 12:17] LABS: LDH Peritoneal Fluid 55
[2022-07-15 13:15] LABS: Glucose, Whole Blood 251 mg/dL (60-115)
[2022-07-15 14:15] LABS: Glucose, Whole Blood 283 mg/dL (60-115)
--- NOTE | 2022-07-15 15:27 | P.PNCC_ITS ---
Subjective Subjective Date of Service: 07/15/22 Interval History: 56-year-old longstanding alcoholic with alcoholic cirrhosis and now has features of both hepatic failure as well as portal hypertension with ascites which has been tapped multiple occasions for relief of discomfort and also to sample the fluid to rule out spontaneous bacterial peritonitis and she has had most of her treatment done over at [facility] she was recently tapped there the abdominal fluid was negative but they did find the alec nephric abscess which grew E coli and was treated Venofer 2 weeks 1st with ceftriaxone and finished with oral Bactrim that course completed and 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 they at 1 time had her on Keppra but they removed the Keppra and that she has had workup including spinal tap which only showed elevated protein level of about 130 mg % and the breakdown by electrophoresis is still pending according to the laboratory work that we got from the hospital there but she has had negative CT scans of her head and the no evidence of of an encephalitic picture and is no sooner that she leave [facility] she came to our emergency room with the same abdominal complaint of distension and there they tapped and of course removed 4 L of fluid precipitated hypotension and a bleed where she dropped so far approximately 4 g of hemoglobin from 13-9 into the abdominal fluid which on repeat seats CT scan clearly was more complex based on the bleed so the volume again looks the same but the fluid complexity is consistent with blood mixed with serous fluid and the initial workup of the serous fluid showed a low LDH and insignificant white count and significant serum to to full to fluid albumin gradient all consistent with fluid being on the basis of the portal hypertension and bedside echo shows normal LV and RV function with no primary valve or pericardial disease but I can not do image the IVC because the soon as you touch the skin of her abdomen she starts to cry and it is impossible to get a decent exam from that standpoint She has normal bowel movement she does have bowel sounds and she has demonstrated some of these as pseudoseizures here in the hospital as well Due to hypotension and a low mean arterial pressure in the fear that it will precipitate hepatorenal syndrome we started her on vasopressin bringing her mean arterial pressure to about 65 at this point and she has stable renal function but last 2 or 3 hours her urinary output volume has diminished and did may be intravascular depletion. I sent a urine sodium as a screen and became added 140 interestingly enough so clearly did a she is not at a stage where she has a manifesting hyper aldosteronism or elevated ADH levels its etc. and she is not the no frankly hyponatremic so she is not on that negative a prognostic and so I am going to give her altogether 50 g of albumin and I am going to type and cross and because of this any further drop of the hemoglobin to 8.5 or less given the acuteness of the drop I might transfuse did and also for the benefit of improving intravascular volume I am using oral Xifaxan you know to control her ammonia level will check on that again Critical Care Time (minutes): 45 Physical Exam Vital Signs: Vital Signs: Last Vital Signs Temp 98.8 F 07/15/22 14:00 Pulse 85 07/15/22 14:00 Resp 12 07/15/22 14:00 BP 95/57 L 07/15/22 14:00 Pulse Ox 94 07/15/22 14:00 O2 Del Method 07/15/22 14:00 BMI result Body Mass Index 31.4 Blood pressure is 94/50 with a mean of 63 so she will receive the volume and probably go up On the vasopressin 2.0 3 units/minute Lungs clear no adventitious sounds no respiratory effort Abdomen of course very distended but there are bowel sounds and she is having bowel movement Skin is intact and no cellulitis Objective Data Labs CBC & Chem 7: 07/15/22 05:16 07/15/22 05:16 Labs: Laboratory Results - last 24 hr 07/14/22 07/14/22 07/14/22 02:22 16:21 16:21 WBC 6.3 RBC 2.94 L Hgb 9.0 L Hct 27.2 L MCV 92.5 MCH 30.6 MCHC 33.1 RDW 14.5 Plt Count 111 L MPV 9.6 Immature Gran % (Auto) 0.5 H Neut % (Auto) 89.8 H Lymph % (Auto) 8.1 L [place] % (Auto) 1.6 L Eos % (Auto) 0.0 Baso % (Auto) 0.0 Lymph # (Auto) 0.5 L [place] # (Auto) 0.1 Eos # (Auto) 0.0 Baso # (Auto) 0.0 Abs Immat Gran (auto) 0.03 Absolute Neuts (auto) 5.6 Absolute Nucleated RBC 0.000 Nucleated RBC % (auto) 0.0 PT 29.5 H INR 2.5 H Sodium Potassium Chloride Carbon Dioxide Anion Gap BUN Creatinine Estim Creat Clear Calc Estimated GFR POC Glucose Random Glucose Calcium Phosphorus Magnesium Ur Random Sodium Peritoneal Tot Protein 1.5 Peritoneal LDH 55 Stool Occult Blood C. difficile Tox B Gene 07/14/22 07/14/22 07/14/22 16:21 16:25 16:25 WBC RBC Hgb Hct MCV MCH MCHC RDW Plt Count MPV Immature Gran % (Auto) Neut % (Auto) Lymph % (Auto) [place] % (Auto) Eos % (Auto) Baso % (Auto) Lymph # (Auto) [place] # (Auto) Eos # (Auto) Baso # (Auto) Abs Immat Gran (auto) Absolute Neuts (auto) Absolute Nucleated RBC Nucleated RBC % (auto) PT INR Sodium 138 Potassium 4.3 Chloride 111 H Carbon Dioxide 19 L Anion Gap 12 BUN 11 Creatinine 0.72 Estim Creat Clear Calc 91.0 Estimated GFR > 60 POC Glucose Random Glucose 224 H Calcium 7.6 L Phosphorus Magnesium 1.7 Ur Random Sodium Peritoneal Tot Protein Peritoneal LDH Stool Occult Blood NEGATIVE C. difficile Tox B Gene NEGATIVE 07/14/22 07/14/22 07/15/22 16:41 20:27 05:16 WBC 7.0 RBC 2.81 L Hgb 8.8 L Hct 26.5 L MCV 94.3 MCH 31.3 MCHC 33.2 RDW 14.8 Plt Count 116 L MPV 10.0 Immature Gran % (Auto) 0.3 Neut % (Auto) 82.8 H Lymph % (Auto) 11.2 L [place] % (Auto) 5.3 Eos % (Auto) 0.0 Baso % (Auto) 0.4 Lymph # (Auto) 0.8 L [place] # (Auto) 0.4 Eos # (Auto) 0.0 Baso # (Auto) 0.0 Abs Immat Gran (auto) 0.02 Absolute Neuts (auto) 5.8 Absolute Nucleated RBC 0.000 Nucleated RBC % (auto) 0.0 PT INR Sodium Potassium Chloride Carbon Dioxide Anion Gap BUN Creatinine Estim Creat Clear Calc Estimated GFR POC Glucose 204 H 273 H Random Glucose Calcium Phosphorus Magnesium Ur Random Sodium Peritoneal Tot Protein Peritoneal LDH Stool Occult Blood C. difficile Tox B Gene 07/15/22 07/15/22 07/15/22 05:16 07:25 10:22 WBC RBC Hgb Hct MCV MCH MCHC RDW Plt Count MPV Immature Gran % (Auto) Neut % (Auto) Lymph % (Auto) [place] % (Auto) Eos % (Auto) Baso % (Auto) Lymph # (Auto) [place] # (Auto) Eos # (Auto) Baso # (Auto) Abs Immat Gran (auto) Absolute Neuts (auto) Absolute Nucleated RBC Nucleated RBC % (auto) PT INR Sodium 137 Potassium 4.4 Chloride 109 H Carbon Dioxide 20 L Anion Gap 12 BUN 13 Creatinine 0.80 Estim Creat Clear Calc 82.7 Estimated GFR > 60 POC Glucose 224 H 251 H Random Glucose 236 H Calcium 7.8 L Phosphorus 2.5 L Magnesium 1.8 Ur Random Sodium Peritoneal Tot Protein Peritoneal LDH Stool Occult Blood C. difficile Tox B Gene 07/15/22 07/15/22 11:19 14:11 WBC RBC Hgb Hct MCV MCH MCHC RDW Plt Count MPV Immature Gran % (Auto) Neut % (Auto) Lymph % (Auto) [place] % (Auto) Eos % (Auto) Baso % (Auto) Lymph # (Auto) [place] # (Auto) Eos # (Auto) Baso # (Auto) Abs Immat Gran (auto) Absolute Neuts (auto) Absolute Nucleated RBC Nucleated RBC % (auto) PT INR Sodium Potassium Chloride Carbon Dioxide Anion Gap BUN Creatinine Estim Creat Clear Calc Estimated GFR POC Glucose 283 H Random Glucose Calcium Phosphorus Magnesium Ur Random Sodium 140.0 Peritoneal Tot Protein Peritoneal LDH Stool Occult Blood C. difficile Tox B Gene Microbiology Microbiology Results: Microbiology 07/14/22 10:11 Urine Catheterized - Lang Catheter Urine Culture - Final No growth. 07/14/22 02:22 Peritoneal Fluid Gram Stain - Final 07/14/22 02:22 Peritoneal Fluid Routine Culture - Preliminary No growth to date. 07/14/22 02:22 Peritoneal Fluid Anaerobic Culture - Preliminary No growth to date. 07/13/22 23:18 Blood - Venous Blood Culture - Preliminary No growth after 24 hours. 07/13/22 23:18 Blood - Venous Blood Culture - Preliminary No growth after 24 hours. Progress Note: A&P Assessment and plan (1) Hypotension: Status: Acute (2) Varices of other sites: Status: Acute (3) Portal hypertension: Status: Acute (4) Hepatic failure due to alcoholism: Status: Acute (5) Enterocolitis: Status: Acute (6) Hypothermia: Status: Acute (7) Encephalopathy: Status: Acute (8) Hypoglycemia: Status: Acute (9) Hyperglycemia: Status: Acute (10) SBP (spontaneous bacterial peritonitis): Status: Acute (11) Ascites: Status: Acute (12) Cirrhosis: Status: Acute Plan So we are not dealing with spontaneous bacterial peritonitis but we are dealing with a ascites based on portal hypertension by the numbers and today the LDH came back also very low as further corroboration but we do have the intraperit rowell bleed which was iatrogenic and we will transfuse if the hemoglobin level merits because that will help intravascular volume and until then will give her IV albumin and titrate the vasopressin and she currently has a good response with a mean arterial pressure of 71 and this will help us avoid hepatic or renal issues Quality Stroke Does the patient have a stroke diagnosis?: No VTE Prior VTE?: No VTE Risk Level:: Medical - moderate - high VTE Device Contraindication: N/A - Device Ordered VTE Drug Contraindication: Treatment Not Indicated
[2022-07-15 15:53] LABS: MANUAL DIFF FLAG NO
[2022-07-15 15:55] LABS: Basophils Percent Auto 0.5 % (0-2); Hematocrit 26.6 % (37.0-47.0); Hemoglobin 8.5 g/dl (12.0-16.0); Imm Gran Abs Auto 0.01 X10*3/uL (0.00-0.03); Imm Gran Pct Auto 0.2 % (0.0-0.4); Lymphocytes Absolute Auto 0.5 X10*3/uL (1.2-4.9); Lymphocytes Percent Auto 12.6 % (20-40); Mean Corpuscular Volume 97.1 fL (80.0-98.0); Mean Platelet Volume 9.3 fL (9.4-12.3); Monocytes Absolute Auto 0.3 X10*3/uL (0.1-1.2); Monocytes Percent Auto 7.2 % (2-11); Neutrophils Absolute Auto 3.4 x10*3/uL (2.0-8.3); Neutrophils Percent Auto 79.5 % (45-73); Red Blood Count 2.74 X10*6/uL (4.20-5.50); White Blood Count 4.3 X10*3/uL (4.8-10.8)
[2022-07-15 16:00] LABS: Albumin Level 3.4 g/dL (3.5-5.0)
[2022-07-15 16:01] LABS: Ammonia 42 umol/L (13-55)
[2022-07-15 16:09] LABS: Anion Gap 13 (12-20); Blood Urea Nitrogen 14 mg/dL (9-16); Calcium 8.1 mg/dL (8.4-10.2); Carbon Dioxide 21 mmol/L (22-29); Chloride 108 mmol/L (96-108); Creatinine Clr Calc Pharmacy 78.8; Estimated Glomerular Filt Rate > 60; Glucose Random 294 mg/dL (60-115); Magnesium 1.8 mg/dL (1.6-2.6); Platelet Count 96 X10*3/uL (160-400); Potassium 4.5 mmol/L (3.3-5.1); Sodium 137 mmol/L (135-145)
[2022-07-15 17:02] LABS: Glucose, Whole Blood 297 mg/dL (60-115)
--- NOTE | 2022-07-15 19:57 | PC.NURSE ---
Assumed care at 07:00; began day with abdominal pain and nausea and was unable to take morning meds initially, was medicated with dilaudid and zofran with good effect, but was then quite lethargic and unable to eat much today. Patient did tolerate her clear liquid diet, but poor PO intake and poor appetite. Very lethargic in afternoon and hard to arouse, but arousable to light pain, was not following commands, fluttering eyelids, was interactive with staff for nursing care at that time, but pupils sluggish, PERRL, and MD called to bedside out of abundance of caution. New orders to recheck ammonia, 42, and BMP and CBC. Some continued pain in feet with tactile stim.
[2022-07-15 21:45] LABS: Glucose, Whole Blood 304 mg/dL (60-115)
[2022-07-15 22:06] LABS: Hematocrit 23.4 % (37.0-47.0); Hemoglobin 7.6 g/dl (12.0-16.0)
[2022-07-16] VITALS (22 sets, daily range): BP systolic 95–114; BP diastolic 50–73; PULSE 79–89; RESP 10–19; TEMP 36–37.2; O2SAT 91–97; BMI 32.0
[2022-07-16] MEDS: 0.9 % Sodium Chloride Flush 3 ML SYRINGE IVFLUSH ×3 (00:04→16:18)
[2022-07-16 05:13] LABS: MANUAL DIFF FLAG NO
[2022-07-16 05:15] LABS: Basophils Percent Auto 0.3 % (0-2); Hematocrit 23.8 % (37.0-47.0); Hemoglobin 7.6 g/dl (12.0-16.0); Imm Gran Abs Auto 0.01 X10*3/uL (0.00-0.03); Imm Gran Pct Auto 0.3 % (0.0-0.4); Lymphocytes Absolute Auto 0.5 X10*3/uL (1.2-4.9); Mean Corpuscular HGB Conc 31.9 g/dl (31.0-35.0); Mean Corpuscular Hemoglobin 30.8 pg (27.0-33.0); Mean Corpuscular Volume 96.4 fL (80.0-98.0); Mean Platelet Volume 9.4 fL (9.4-12.3); Monocytes Absolute Auto 0.3 X10*3/uL (0.1-1.2); Monocytes Percent Auto 8.1 % (2-11); Neutrophils Absolute Auto 2.5 x10*3/uL (2.0-8.3); Neutrophils Percent Auto 75.3 % (45-73); Red Blood Count 2.47 X10*6/uL (4.20-5.50); Red Cell Distribution Width 14.8 % (11.0-16.0); White Blood Count 3.3 X10*3/uL (4.8-10.8)
[2022-07-16 05:15] LABS: Ammonia 59 umol/L (13-55)
[2022-07-16 05:17] LABS: Platelet Count 79 X10*3/uL (160-400)
[2022-07-16] MEDS: ondansetron HCL 4 MG/2 ML VIAL IVPUSH (05:27)
[2022-07-16 05:30] LABS: INTERNATIONAL NORM RATIO 2.5 (0.9-1.1); Prothrombin Time 29.3 SEC (10.0-13.1)
[2022-07-16] MEDS: HYDROmorphone HCl 0.5 MG/0.5 ML SYRINGE IVPUSH ×3 (05:34→22:24)
[2022-07-16 05:42] LABS: Alanine Aminotransferase 9 U/L (0-31); Albumin Level 3.4 g/dL (3.5-5.0); Alkaline Phosphatase 50 U/L (39-117); Anion Gap 9 (12-20); Aspartate Amino Transferase 15 U/L (5-31); Bilirubin Total 1.1 mg/dL (0.0-1.0); Blood Urea Nitrogen 14 mg/dL (9-16); Calcium 7.9 mg/dL (8.4-10.2); Carbon Dioxide 23 mmol/L (22-29); Chloride 108 mmol/L (96-108); Creatinine Clr Calc Pharmacy 95.5; Estimated Glomerular Filt Rate > 60; Glucose Random 227 mg/dL (60-115); Magnesium 1.7 mg/dL (1.6-2.6); Phosphorus 1.4 mg/dL (2.7-4.5); Potassium 3.9 mmol/L (3.3-5.1); Sodium 136 mmol/L (135-145); Total Protein 5.5 g/dL (6.5-8.0)
--- NOTE | 2022-07-16 05:45 | PC.NURSE ---
CARE ASSUMED 23:15..INITIALLY DROWSY BUT AROUSABLE...VASOPRESSIN MAINTAINED 0.03 UNITS/MIN FOR MARGINAL BP..AWAKE..ALERT THIS AM..CONVERSANT...C/O NAUSEA AND ABDOMINAL PAIN..MEDICATED WITH PRN ZOFRAN FOLLOWED BY PRN DILAUDID..STATED PAIN AND NAUSEA EASING..NSR NO ECTOPY..ABDOMEN REMAINS DISTENDED AND SEMI-FIRM OVERNIGHT..AM H/H UNCHANGED FROM PRIOR DRAW..CURRENTLY RESTFUL
[2022-07-16] MEDS: Potassium Phosphate/NS 15 MMOL/250 ML PLAST..BAG 62.5 MMOL IV ×2 (06:46→11:57)
[2022-07-16 07:12] LABS: Glucose, Whole Blood 247 mg/dL (60-115)
[2022-07-16] MEDS: rifAXIMin 550 MG TABLET PO ×3 (07:51→22:06)
[2022-07-16] MEDS: Pregabalin 25 MG CAPSULE PO ×2 (07:51→22:06)
[2022-07-16] MEDS: Insulin Lispro 100 UNIT/ML 3 ML VIAL SUBCUT ×3 (07:51→16:43)
[2022-07-16] MEDS: Lactulose 20 GM/30 ML SOLUTION PO (09:13)
[2022-07-16] MEDS: Midodrine HCl 5 MG TABLET PO ×3 (10:55→22:06)
[2022-07-16] MEDS: Albumin Human 25 % 100 ML IV ×3 (10:56→22:06)
--- NOTE | 2022-07-16 11:13 | P.PNCC_ITS ---
Subjective Subjective Date of Service: 07/16/22 Interval History: 56-year-old lady with underlying alcoholic cirrhosis, recurrent ascites secondary to portal hypertension, on recurrent paracentesis at [facility], pseudoseizures, also with recent history perinephric abscess status post drainage at [facility] admitted on 07/14/2022 with abdominal discomfort with during initial 4 L of ascites fluid in ER, possibly complicated by hemoperitoneum and hypotension. Ascites fluid with no evidence of spontaneous bacterial peritonitis. Patient admitted to intensive care for monitoring. Patient also had another episode of pseudoseizures with spontaneous resolution. She required transfusion of 1 unit of packed red blood cells. Her blood pressure has significantly improved. Now she is scheduled for paracentesis. No events overnight. Critical Care Time (minutes): 0 Physical Exam Vital Signs: Vital Signs: Last Vital Signs Temp 98.6 F 07/16/22 10:00 Pulse 79 07/16/22 10:00 Resp 13 07/16/22 10:00 BP 108/60 07/16/22 10:00 Pulse Ox 93 07/16/22 10:00 O2 Del Method 07/16/22 10:00 O2 Flow Rate 1 07/16/22 05:52 BMI result Body Mass Index 32.0 Const: General: no acute distress, alert and awake Eyes: Sclerae: sclerae normal EOM: EOMs intact bilaterally Neck: Neck: Yes no lymphadenopathy, Yes trachea midline and Yes supple Resp: Effort & Inspection: normal respiratory effort and no respiratory distress Auscultation: clear to auscultation bilaterally Cardio: Rate: regular rate Rhythm: regular rhythm Heart sounds: no gallops, no murmurs and no rubs GI: Inspection: Yes distended Palpation (GI): Soft to palpation, Tenderness to palpation present (GI) ( Mild diffuse), Ascites present and Other GI palpation findings present Auscultation: normal bowel sounds Extrem: General: No clubbing, No cyanosis and Yes edema ( trace bilateral) Objective Data Labs CBC & Chem 7: 07/16/22 04:57 07/16/22 04:57 Labs: Laboratory Results - last 24 hr 07/14/22 07/15/22 07/15/22 02:22 10:22 11:19 WBC RBC Hgb Hct MCV MCH MCHC RDW Plt Count MPV Immature Gran % (Auto) Neut % (Auto) Lymph % (Auto) [place] % (Auto) Eos % (Auto) Baso % (Auto) Lymph # (Auto) [place] # (Auto) Eos # (Auto) Baso # (Auto) Abs Immat Gran (auto) Absolute Neuts (auto) Absolute Nucleated RBC Nucleated RBC % (auto) PT INR Sodium Potassium Chloride Carbon Dioxide Anion Gap BUN Creatinine Estim Creat Clear Calc Estimated GFR POC Glucose 251 H Random Glucose Calcium Phosphorus Magnesium Total Bilirubin AST ALT Alkaline Phosphatase Ammonia Total Protein Albumin Ur Random Sodium 140.0 Peritoneal Tot Protein 1.5 Peritoneal LDH 55 Blood Type Antibody Screen Crossmatch 07/15/22 07/15/22 07/15/22 14:11 15:45 15:45 WBC 4.3 L RBC 2.74 L Hgb 8.5 L Hct 26.6 L MCV 97.1 MCH 31.0 MCHC 32.0 RDW 15.0 Plt Count 96 L MPV 9.3 L Immature Gran % (Auto) 0.2 Neut % (Auto) 79.5 H Lymph % (Auto) 12.6 L [place] % (Auto) 7.2 Eos % (Auto) 0.0 Baso % (Auto) 0.5 Lymph # (Auto) 0.5 L [place] # (Auto) 0.3 Eos # (Auto) 0.0 Baso # (Auto) 0.0 Abs Immat Gran (auto) 0.01 Absolute Neuts (auto) 3.4 Absolute Nucleated RBC 0.000 Nucleated RBC % (auto) 0.0 PT INR Sodium Potassium Chloride Carbon Dioxide Anion Gap BUN Creatinine Estim Creat Clear Calc Estimated GFR POC Glucose 283 H Random Glucose Calcium Phosphorus Magnesium Total Bilirubin AST ALT Alkaline Phosphatase Ammonia Total Protein Albumin 3.4 L Ur Random Sodium Peritoneal Tot Protein Peritoneal LDH Blood Type Antibody Screen Crossmatch 07/15/22 07/15/22 07/15/22 15:45 15:45 15:45 WBC RBC Hgb Hct MCV MCH MCHC RDW Plt Count MPV Immature Gran % (Auto) Neut % (Auto) Lymph % (Auto) [place] % (Auto) Eos % (Auto) Baso % (Auto) Lymph # (Auto) [place] # (Auto) Eos # (Auto) Baso # (Auto) Abs Immat Gran (auto) Absolute Neuts (auto) Absolute Nucleated RBC Nucleated RBC % (auto) PT INR Sodium 137 Potassium 4.5 Chloride 108 Carbon Dioxide 21 L Anion Gap 13 BUN 14 Creatinine 0.84 Estim Creat Clear Calc 78.8 Estimated GFR > 60 POC Glucose Random Glucose 294 H Calcium 8.1 L Phosphorus Magnesium 1.8 Total Bilirubin AST ALT Alkaline Phosphatase Ammonia 42 Total Protein Albumin Ur Random Sodium Peritoneal Tot Protein Peritoneal LDH Blood Type O Positive Antibody Screen NEGATIVE Crossmatch See Detail 07/15/22 07/15/22 07/15/22 16:59 21:30 21:52 WBC RBC Hgb 7.6 L Hct 23.4 L MCV MCH MCHC RDW Plt Count MPV Immature Gran % (Auto) Neut % (Auto) Lymph % (Auto) [place] % (Auto) Eos % (Auto) Baso % (Auto) Lymph # (Auto) [place] # (Auto) Eos # (Auto) Baso # (Auto) Abs Immat Gran (auto) Absolute Neuts (auto) Absolute Nucleated RBC Nucleated RBC % (auto) PT INR Sodium Potassium Chloride Carbon Dioxide Anion Gap BUN Creatinine Estim Creat Clear Calc Estimated GFR POC Glucose 297 H 304 H Random Glucose Calcium Phosphorus Magnesium Total Bilirubin AST ALT Alkaline Phosphatase Ammonia Total Protein Albumin Ur Random Sodium Peritoneal Tot Protein Peritoneal LDH Blood Type Antibody Screen Crossmatch 07/16/22 07/16/22 07/16/22 04:56 04:57 04:57 WBC 3.3 L RBC 2.47 L Hgb 7.6 L Hct 23.8 L MCV 96.4 MCH 30.8 MCHC 31.9 RDW 14.8 Plt Count 79 L MPV 9.4 Immature Gran % (Auto) 0.3 Neut % (Auto) 75.3 H Lymph % (Auto) 16.0 L [place] % (Auto) 8.1 Eos % (Auto) 0.0 Baso % (Auto) 0.3 Lymph # (Auto) 0.5 L [place] # (Auto) 0.3 Eos # (Auto) 0.0 Baso # (Auto) 0.0 Abs Immat Gran (auto) 0.01 Absolute Neuts (auto) 2.5 Absolute Nucleated RBC 0.000 Nucleated RBC % (auto) 0.0 PT INR Sodium 136 Potassium 3.9 Chloride 108 Carbon Dioxide 23 Anion Gap 9 L BUN 14 Creatinine 0.70 Estim Creat Clear Calc 95.5 Estimated GFR > 60 POC Glucose Random Glucose 227 H Calcium 7.9 L Phosphorus 1.4 L Magnesium 1.7 Total Bilirubin 1.1 H AST 15 ALT 9 Alkaline Phosphatase 50 Ammonia 59 H Total Protein 5.5 L Albumin 3.4 L Ur Random Sodium Peritoneal Tot Protein Peritoneal LDH Blood Type Antibody Screen Crossmatch 07/16/22 07/16/22 04:57 07:07 WBC RBC Hgb Hct MCV MCH MCHC RDW Plt Count MPV Immature Gran % (Auto) Neut % (Auto) Lymph % (Auto) [place] % (Auto) Eos % (Auto) Baso % (Auto) Lymph # (Auto) [place] # (Auto) Eos # (Auto) Baso # (Auto) Abs Immat Gran (auto) Absolute Neuts (auto) Absolute Nucleated RBC Nucleated RBC % (auto) PT 29.3 H INR 2.5 H Sodium Potassium Chloride Carbon Dioxide Anion Gap BUN Creatinine Estim Creat Clear Calc Estimated GFR POC Glucose 247 H Random Glucose Calcium Phosphorus Magnesium Total Bilirubin AST ALT Alkaline Phosphatase Ammonia Total Protein Albumin Ur Random Sodium Peritoneal Tot Protein Peritoneal LDH Blood Type Antibody Screen Crossmatch Microbiology Microbiology Results: Microbiology 07/14/22 02:22 Peritoneal Fluid Gram Stain - Final 07/14/22 02:22 Peritoneal Fluid Routine Culture - Final No growth after 2 days 07/14/22 02:22 Peritoneal Fluid Anaerobic Culture - Preliminary No growth to date. 07/13/22 23:18 Blood - Venous Blood Culture - Preliminary No growth after 48 hours. 07/13/22 23:18 Blood - Venous Blood Culture - Preliminary No growth after 48 hours. 07/14/22 10:11 Urine Catheterized - Lang Catheter Urine Culture - Final No growth. Progress Note: A&P Assessment and plan (1) Hypotension: Status: Acute (2) Portal hypertension: Status: Acute (3) Hepatic failure due to alcoholism: Status: Acute (4) Ascites: Status: Acute (5) Hemoperitoneum (nontraumatic): Status: Acute (6) Diabetes type 2, controlled: Status: Acute Plan Assessment: 56-year-old lady with underlying alcoholic liver cirrhosis with recurrent ascites requiring paracentesis admitted with abdominal pain requiring paracentesis further complicated by hemoperitoneum and hypotension, now improving Plan: Neuro: No acute issues. Cardiac: No acute issues. Pulmonary: No acute issues. Renal: No acute issues. Endo: No acute issues. GI: alcoholic liver cirrhosis with recurrent ascites requiring paracentesis with the last one complicated by hemoperitoneum. Now scheduled for repeat paracentesis. Continue with crystalloid support. Continue on Xifaxan and lactulose for prevention of hepatic encephalopathy. Restarted on Lasix and spironolactone as blood pressure tolerates. ID: no evidence of spontaneous bacterial peritonitis on last ascites fluid studies. Heme/Onc: Blood loss anemia now requiring 1 unit of packed red blood cells. Psych: No acute issues. Miscellaneous: No acute issues. Prophylaxis: Intermittent pneumatic compression Diet: regular Quality Stroke Does the patient have a stroke diagnosis?: No VTE Prior VTE?: No VTE Risk Level:: Medical - moderate - high VTE Device Contraindication: N/A - Device Ordered VTE Drug Contraindication: Treatment Not Indicated
--- NOTE | 2022-07-16 11:14 | MHC.CLN ---
RE: CONSULT PT WITH INCREASED NUTRITION RISK R/T PRESSURE INJURY PT REPORTED SIGNIFICANT WT LOSS 100# X 1 YEAR PREVIOUS WT HX REVEALS: 69.8KG (12/20/21) 82.2KG (06/24/21) PT WITH HX PARACENTESIS AND MAY BE CONTRIBUTORS TO WT FLUCTUATIONS WHICH ARE EXPECTED DIET RX: C/L-APPROPRIATE RECOMMEND ADDING ENSURE CLEAR TO INCREASE KCALS AND PROMOTE WOUND HEALING SUPP TO PROVIDE 720KCALS, 24G PROTEIN MONITOR PO INTAKE CLOSELY SEE ALSO FULL CLINICAL NUTRITION ASSESSMENT
[2022-07-16 11:46] LABS: Glucose, Whole Blood 320 mg/dL (60-115)
--- NOTE | 2022-07-16 12:08 | MHC.CM.PN ---
Met w/pt to discuss d/c planning: pt resides w/son who is in the process of becoming pt's compensated wound care specialist through [employer]. Pt states she uses a walker but is fairly independent. Her son assists with cleaning and meal prep. Pt's sister assists w/transportation. IMM and HCP in chart. Pt's sister to transport home. New referral to [facility] for skilled RN visits following [facility] stay.
--- NOTE | 2022-07-16 12:47 | HO.RADPN ---
RADIOLOGY Narrative Narrative: RLQ paracentesis performed using 4 fr catheter. 2.5 L clear yellow fluid removed. No specimen sent.
--- NOTE | 2022-07-16 12:51 | MHC.CDI.CONC ---
CDI Concurrent Query Documentation Clarification: PHYSICIAN'S DOCUMENTATION REQUEST Date of Query: 07/16/22 1251 Patient Name: Alison Peck Admit Date: 07/14/22 Dear Doctor, A review of the medical record indicates additional documentation may be indicated. Please review below and update the documentation accordingly. Clinical Indicators: Risk Factors/Clinical Indicators/Treatments Wound care notes 07/15 - Pressure injury Lt buttock Stage 2 Recommends adding Ensure Clear to increase Kcals and promote wound healing. Based on the above, could you please provide, in the Progress Notes, further information regarding the ulcer/wound: If a pressure ulcer/injury, please also include the stage* of the ulcer: Stage 1 - Skin intact, non-blanchable redness Stage 2 - Partial thickness loss of dermis, includes intact or open blister Stage 3 - Full thickness tissue not including bone, tendon, or muscle Other Unable to determine *Source: National Pressure Ulcer Advisory Panel (NPUAP) Use of terms such as suspected, likely, concern for, or probable (associated with a specific diagnosis that is being evaluated, monitored, or treated as if it exists) are acceptable and can be coded in the inpatient setting, when documented at the time of discharge. Thank you, Cammie Solomon [facility], CDIS Extension: [phone] Please use your independent medical judgment in providing your response. THIS QUERY IS PART OF THE PERMANENT MEDICAL RECORD Provider Response: Other ( Left buttock stage II) Other Diagnosis: Left buttock stage II
[2022-07-16] MEDS: Lidocaine HCl 1 % MPF 5 ML VIAL 10 ML SUBCUT (13:02)
[2022-07-16 15:54] LABS: Glucose, Whole Blood 234 mg/dL (60-115)
--- NOTE | 2022-07-16 18:53 | PC.NURSE ---
MORNING ASSESSMENT NOTED PATIENT ALERT AND ORIENTED BUT DROWSY. ASSESSMENT NOTED BRUISING TO BILATERAL SHINS, DRESSING TO COCCYX CDI. 1 UNIT RBC GIVEN AT ROUGHLY 0845, NO ADVERSE REACTIONS NOTED. ALBUMIN BOTTLE 1 OF 2 GIVEN PRIOR TO PARACENTEIS, SEE EMAR. PARACENTESIS PREFORMED BY DR. DE SOUZA, 2250 ML OF FLUID REMOVED FROM ABDOMEN. ALBUMIN BOTTLE 2 OF 2 GIVEN AFTER PARACENTESIS. PATIENT UPDATED ON HEALTH STATUS, REPOSITIONED Q2HR. REPORT GIVEN TO [facility] NURSE AND PATIENT BROUGHT UP TO ASSIGNED ROOM.
[2022-07-16 19:54] LABS: Glucose, Whole Blood 115 mg/dL (60-115)
[2022-07-17] VITALS (16 sets, daily range): BP systolic 92–112; BP diastolic 51–64; PULSE 68–86; RESP 12–114; TEMP 35.7–37.1; O2SAT 94–100
[2022-07-17] MEDS: Albumin Human 25 % 100 ML IV (03:40)
--- NOTE | 2022-07-17 06:23 | PM.EVENT ---
Event Note Date of Service: 07/17/22 Event Note: Was informed by nurse that patient had bleeding per rectum. Ordered crystalloid resuscitation and protonix 80mg IV once. Noted previous Hb in the 7s, ordered pRBC. Also consulted GI. Currently hemodynamically stable
[2022-07-17] MEDS: 0.9 % Sodium Chloride 1,000 ML 999 ML IV (06:32)
[2022-07-17] MEDS: HYDROmorphone HCl 0.5 MG/0.5 ML SYRINGE IVPUSH ×2 (06:32→13:04)
[2022-07-17] MEDS: Pantoprazole Sodium 40 MG/10 ML VIAL 80 MG IVPUSH (06:59)
[2022-07-17 07:34] LABS: Glucose, Whole Blood 189 mg/dL (60-115)
[2022-07-17] MEDS: Midodrine HCl 5 MG TABLET PO ×3 (08:51→20:59)
[2022-07-17] MEDS: 0.9 % Sodium Chloride Flush 3 ML SYRINGE IVFLUSH ×2 (08:51→17:14)
[2022-07-17] MEDS: Pregabalin 25 MG CAPSULE PO ×2 (08:51→20:59)
[2022-07-17] MEDS: Insulin Lispro 100 UNIT/ML 3 ML VIAL SUBCUT ×4 (08:56→21:00)
[2022-07-17] MEDS: cefTRIAXone sodium 1 GM in 0.9 % Sodium Chloride 50 ML IV (09:04)
[2022-07-17 09:27] LABS: MANUAL DIFF FLAG NO
[2022-07-17 09:33] LABS: Basophils Percent Auto 0.2 % (0-2); Imm Gran Abs Auto 0.02 X10*3/uL (0.00-0.03); Imm Gran Pct Auto 0.4 % (0.0-0.4); Lymphocytes Absolute Auto 0.9 X10*3/uL (1.2-4.9); Lymphocytes Percent Auto 18.1 % (20-40); Mean Corpuscular HGB Conc 32.8 g/dl (31.0-35.0); Mean Corpuscular Hemoglobin 31.8 pg (27.0-33.0); Mean Corpuscular Volume 96.7 fL (80.0-98.0); Mean Platelet Volume 10.4 fL (9.4-12.3); Monocytes Absolute Auto 0.3 X10*3/uL (0.1-1.2); Monocytes Percent Auto 5.3 % (2-11); Neutrophils Absolute Auto 3.9 x10*3/uL (2.0-8.3); Platelet Count 103 X10*3/uL (160-400); Red Blood Count 2.11 X10*6/uL (4.20-5.50); Red Cell Distribution Width 15.2 % (11.0-16.0); White Blood Count 5.1 X10*3/uL (4.8-10.8)
[2022-07-17] MEDS: Insulin Glargine,Hum.rec.anlog 100 UNIT/ML 10 ML VIAL SUBCUT ×2 (09:34→21:00)
[2022-07-17] MEDS: rifAXIMin 550 MG TABLET PO ×3 (09:35→20:59)
[2022-07-17 09:51] LABS: Hematocrit 20.4 % (37.0-47.0); Hemoglobin 6.7 g/dl (12.0-16.0)
[2022-07-17 10:01] LABS: Albumin Level 3.3 g/dL (3.5-5.0); Anion Gap 13 (12-20); Blood Urea Nitrogen 19 mg/dL (9-16); Calcium 7.5 mg/dL (8.4-10.2); Carbon Dioxide 20 mmol/L (22-29); Chloride 113 mmol/L (96-108); Creatinine Clr Calc Pharmacy 99.8; Estimated Glomerular Filt Rate > 60; Glucose Random 211 mg/dL (60-115); Magnesium 1.6 mg/dL (1.6-2.6); Phosphorus 1.9 mg/dL (2.7-4.5); Potassium 4.8 mmol/L (3.3-5.1); Sodium 141 mmol/L (135-145)
[2022-07-17 11:15] LABS: Glucose, Whole Blood 180 mg/dL (60-115)
[2022-07-17] MEDS: Octreotide Acetate 500 MCG in 0.9 % Sodium Chloride 500 ML 50.1 MCG IVCONT ×2 (11:39→21:25)
[2022-07-17] MEDS: ondansetron HCL 4 MG/2 ML VIAL IVPUSH (13:04)
--- NOTE | 2022-07-17 14:04 | P.PNIM_ITS ---
Subjective Subjective Date of Service: 07/17/22 Interval History: Patient seen and evaluated this morning Feels tired with sickness in her stomach and distension Had 2 large bowel motions with melena with drop in hemoglobin No reported other overnight events Review of Systems Review of Systems: Yes all other systems are reviewed and are negative Physical Exam Vital Signs: Vital Signs: Last Vital Signs Temp 97.0 F 07/17/22 12:53 Pulse 73 07/17/22 12:53 Resp 16 07/17/22 12:53 BP 93/55 L 07/17/22 12:53 Pulse Ox 100 07/17/22 11:30 O2 Del Method 07/17/22 11:30 O2 Flow Rate 1 07/16/22 05:52 BMI result Body Mass Index 32.0 Const: Other: Constitutional : Awake with stimulation, looks lethargic and tired Neck : Normal inspection, Supple Cardiovascular : RRR, no JVP, no lower extremity edema Respiratory : Fair bilateral air entry, no crackles, wheezes or rhonchi Gastrointestinal: soft, lax, decreased bowel sounds, distended abdomen with mild tenderness Skin : Warm, Dry Neurological : Alert & oriented to self, No focal deficit Objective Data Active Medications Dextrose (Dextrose 50 % 25 Gm/50 Ml Syringe) 25 gm IVPUSH Q15M PRN; Protocol PRN Reason: per Hypoglycemia Standing Ord. Docusate Sodium (Docusate Sodium 100 Mg Capsule) 100 mg PO DAILY PRN PRN Reason: Constipation Glucose (Glucose Gel 15 Gm Gel..Gram.) 15 gm PO Q15M PRN; Protocol PRN Reason: per Hypoglycemia Standing Ord. Hydromorphone HCl (Hydromorphone Hcl 0.5 Mg/0.5 Ml Syringe) 0.5 mg IVPUSH Q4H PRN; Protocol PRN Reason: Pain, Moderate (Pain Scale 4-6 Last Admin: 07/17/22 13:04 Dose: 0.5 mg Documented By: MÓNICA Ceftriaxone Sodium 1 gm/ (Sodium Chloride) 50 mls @ 100 mls/hr IV Q24H [facility] Stop: 07/22/22 08:29 Last Infusion: 07/17/22 10:14 Dose: 0 mls/hr Documented By: MÓNICA Octreotide Acetate 500 mcg/ (Sodium Chloride) 501 mls @ 50.1 mls/hr IVCONT .Q10H [facility] Last Admin: 07/17/22 11:39 Dose: 50 mcg/hr, 50.1 mls/hr Documented By: MÓNICA Insulin Glargine (Insulin Glargine,Hum.Rec.Anlog 100 Unit/Ml 10 Ml Vial) 5 unit SUBCUT DAILY@2100 [facility] Last Admin: 07/17/22 09:34 Dose: 5 unit Documented By: MÓNICA Insulin Human Lispro (Insulin Lispro 100 Unit/Ml 3 Ml Vial) 0 unit SUBCUT QIDACHS [facility]; Protocol Last Admin: 07/17/22 11:40 Dose: 2 unit Documented By: MÓNICA Lactulose (Lactulose 20 Gm/30 Ml Solution) 20 gm PO BID [facility] Last Admin: 07/17/22 10:08 Dose: Not Given Documented By: MÓNICA Non-Admin Reason: Frequent loose bloody stool Midodrine (Midodrine Hcl 5 Mg Tablet) 5 mg PO TID [facility] Last Admin: 07/17/22 13:06 Dose: 5 mg Documented By: MÓNICA Ondansetron HCl (Ondansetron Hcl 4 Mg/2 Ml Vial) 4 mg IVPUSH Q6H PRN PRN Reason: Nausea Last Admin: 07/17/22 13:04 Dose: 4 mg Documented By: MÓNICA Pantoprazole Sodium (Pantoprazole Sodium 40 Mg/10 Ml Vial) 40 mg IVPUSH BID@063 0,1630 [facility] Pharmacy Consult (Consult Rx Perform Med Rec) 1 each MISCELLANE ONCE PRN PRN Reason: Consult order Pregabalin (Pregabalin 25 Mg Capsule) 25 mg PO BID [facility] Last Admin: 07/17/22 08:51 Dose: 25 mg Documented By: MÓNICA Rifaximin (Rifaximin 550 Mg Tablet) 550 mg PO TID [facility] Last Admin: 07/17/22 09:35 Dose: 550 mg Documented By: MÓNICA Sodium Chloride (0.9 % Sodium Chloride Flush 3 Ml Syringe) 3 ml IVFLUSH QSHIFT [facility] Last Admin: 07/17/22 08:51 Dose: 3 ml Documented By: MÓNICA Labs CBC & Chem 7: 07/17/22 09:12 07/17/22 09:12 Labs: Laboratory Results - last 24 hr 07/15/22 07/16/22 07/16/22 15:45 15:48 19:48 MCV MCH MCHC RDW Plt Count MPV Immature Gran % (Auto) Neut % (Auto) Lymph % (Auto) [place] % (Auto) Eos % (Auto) Baso % (Auto) Lymph # (Auto) [place] # (Auto) Eos # (Auto) Baso # (Auto) Abs Immat Gran (auto) Absolute Neuts (auto) Absolute Nucleated RBC Nucleated RBC % (auto) Anion Gap Estim Creat Clear Calc Estimated GFR POC Glucose 234 H 115 Random Glucose Calcium Phosphorus Magnesium Albumin Blood Type O Positive Antibody Screen NEGATIVE Crossmatch See Detail 07/17/22 07/17/22 07/17/22 07:16 09:12 09:12 MCV 96.7 MCH 31.8 MCHC 32.8 RDW 15.2 Plt Count 103 L D MPV 10.4 Immature Gran % (Auto) 0.4 Neut % (Auto) 76.0 H Lymph % (Auto) 18.1 L [place] % (Auto) 5.3 Eos % (Auto) 0.0 Baso % (Auto) 0.2 Lymph # (Auto) 0.9 L [place] # (Auto) 0.3 Eos # (Auto) 0.0 Baso # (Auto) 0.0 Abs Immat Gran (auto) 0.02 Absolute Neuts (auto) 3.9 Absolute Nucleated RBC 0.000 Nucleated RBC % (auto) 0.0 Anion Gap 13 Estim Creat Clear Calc 99.8 Estimated GFR > 60 POC Glucose 189 H Random Glucose 211 H Calcium 7.5 L Phosphorus 1.9 L Magnesium 1.6 Albumin 3.3 L D Blood Type Antibody Screen Crossmatch 07/17/22 11:10 MCV MCH MCHC RDW Plt Count MPV Immature Gran % (Auto) Neut % (Auto) Lymph % (Auto) [place] % (Auto) Eos % (Auto) Baso % (Auto) Lymph # (Auto) [place] # (Auto) Eos # (Auto) Baso # (Auto) Abs Immat Gran (auto) Absolute Neuts (auto) Absolute Nucleated RBC Nucleated RBC % (auto) Anion Gap Estim Creat Clear Calc Estimated GFR POC Glucose 180 H Random Glucose Calcium Phosphorus Magnesium Albumin Blood Type Antibody Screen Crossmatch Microbiology Microbiology Results: Microbiology 07/14/22 02:22 Gram Stain - Final Peritoneal Fluid Routine Culture - Final No growth after 2 days Anaerobic Culture - Preliminary No growth to date. Assessment and Plan (1) Acute GI bleeding: Status: Acute (2) Acute on chronic blood loss anemia: Status: Acute (3) Hepatic failure due to alcoholism: Status: Acute (4) Encephalopathy: Status: Acute Plan 48-year-old female past medical history of alcoholic liver cirrhosis with multiple admissions in the past, no recent hospital discharge from [facility] 2 days prior to presentation comes into the hospital with hypoglycemia and altered mental status # acute blood loss anemia secondary to acute GI bleed Noted to have melena this morning Hemoglobin dropped to 6.7 To transfuse 2 units of blood IV pantoprazole Start IV octreotide Ceftriaxone IV Pending GI evaluation # toxic metabolic encephalopathy Multifactorial due to Infection, GI bleed, liver cirrhosis Treat underlying problems and recurrent reorientation # hypoglycemia in the setting of liver cirrhosis improved on D10 follow glucose level # hypothermia unclear etiology at this time, no clear source of infection paracentesis negative for any evidence of SBP although patient was recently discharged from the hospital at [facility] and was treated with antibiotics Hold Bactrim Tx with [place]a hgger as needed # enterocolitis seen on CT of the abdomen On ceftriaxone and flagyl GI input appreciated, CT findings likely from liver cirrhosis follow cultures #Hypotension Likely from chronic cirrhosis Received dexamethasone, IVF and albumin monitor BP, use albumin, blood products as needed Pending cortisol random # ascites in the setting of alcoholic liver cirrhosis patient received 4 L and 2.5L of paracentesis diagnostic and therapeutic fluid analysis not show SBP at this time but patient was recently on antibiotics prophylactically treat with ceftriaxone GI consulted # coagulopathy secondary to liver cirrhosis monitor PT INR DVT prophylaxis: SCDs in the setting of underlying coagulopathy given patient's in GI bleed, encephalopathy, hypothermia, hypotension patient will likely need overnight inpatient hospital stay for further management monitoring Quality Stroke Does the patient have a stroke diagnosis?: No VTE Prior VTE?: No VTE Risk Level:: Medical - moderate - high VTE Device Contraindication: N/A - Device Ordered VTE Drug Contraindication: Treatment Not Indicated
[2022-07-17 16:19] LABS: Glucose, Whole Blood 153 mg/dL (60-115)
--- NOTE | 2022-07-17 16:40 | P.PNGI_ITS ---
Subjective Subjective Date of Service: 07/17/22 Interval History: complaining of abdominal cramping Critical Care Time (minutes): 0 Physical Exam Vital Signs: Vital Signs: Last Vital Signs Temp 97.5 F 07/17/22 15:29 Pulse 70 07/17/22 15:29 Resp 18 07/17/22 15:29 BP 100/57 L 07/17/22 15:29 Pulse Ox 94 07/17/22 15:29 O2 Del Method 07/17/22 15:29 O2 Flow Rate 1 07/16/22 05:52 BMI result Body Mass Index 32.0 GI: Other: abdomen is distended, bowel sounds and ascites are present Objective Data Labs CBC & Chem 7: 07/17/22 09:12 07/17/22 09:12 Labs: Laboratory Results - last 24 hr 07/15/22 07/16/22 07/17/22 15:45 19:48 07:16 WBC RBC Hgb Hct MCV MCH MCHC RDW Plt Count MPV Immature Gran % (Auto) Neut % (Auto) Lymph % (Auto) [place] % (Auto) Eos % (Auto) Baso % (Auto) Lymph # (Auto) [place] # (Auto) Eos # (Auto) Baso # (Auto) Abs Immat Gran (auto) Absolute Neuts (auto) Absolute Nucleated RBC Nucleated RBC % (auto) Sodium Potassium Chloride Carbon Dioxide Anion Gap BUN Creatinine Estim Creat Clear Calc Estimated GFR POC Glucose 115 189 H Random Glucose Calcium Phosphorus Magnesium Albumin Blood Type O Positive Antibody Screen NEGATIVE Crossmatch See Detail 07/17/22 07/17/22 07/17/22 09:12 09:12 11:10 WBC 5.1 RBC 2.11 L Hgb 6.7 L* Hct 20.4 L* MCV 96.7 MCH 31.8 MCHC 32.8 RDW 15.2 Plt Count 103 L D MPV 10.4 Immature Gran % (Auto) 0.4 Neut % (Auto) 76.0 H Lymph % (Auto) 18.1 L [place] % (Auto) 5.3 Eos % (Auto) 0.0 Baso % (Auto) 0.2 Lymph # (Auto) 0.9 L [place] # (Auto) 0.3 Eos # (Auto) 0.0 Baso # (Auto) 0.0 Abs Immat Gran (auto) 0.02 Absolute Neuts (auto) 3.9 Absolute Nucleated RBC 0.000 Nucleated RBC % (auto) 0.0 Sodium 141 Potassium 4.8 D Chloride 113 H Carbon Dioxide 20 L Anion Gap 13 BUN 19 H D Creatinine 0.67 Estim Creat Clear Calc 99.8 Estimated GFR > 60 POC Glucose 180 H Random Glucose 211 H Calcium 7.5 L Phosphorus 1.9 L Magnesium 1.6 Albumin 3.3 L D Blood Type Antibody Screen Crossmatch 07/17/22 16:16 WBC RBC Hgb Hct MCV MCH MCHC RDW Plt Count MPV Immature Gran % (Auto) Neut % (Auto) Lymph % (Auto) [place] % (Auto) Eos % (Auto) Baso % (Auto) Lymph # (Auto) [place] # (Auto) Eos # (Auto) Baso # (Auto) Abs Immat Gran (auto) Absolute Neuts (auto) Absolute Nucleated RBC Nucleated RBC % (auto) Sodium Potassium Chloride Carbon Dioxide Anion Gap BUN Creatinine Estim Creat Clear Calc Estimated GFR POC Glucose 153 H Random Glucose Calcium Phosphorus Magnesium Albumin Blood Type Antibody Screen Crossmatch Microbiology Microbiology Results: Microbiology 07/14/22 02:22 Peritoneal Fluid Gram Stain - Final 07/14/22 02:22 Peritoneal Fluid Routine Culture - Final No growth after 2 days 07/14/22 02:22 Peritoneal Fluid Anaerobic Culture - Preliminary No growth to date. 07/13/22 23:18 Blood - Venous Blood Culture - Preliminary No growth after 48 hours. 07/13/22 23:18 Blood - Venous Blood Culture - Preliminary No growth after 48 hours. 07/14/22 10:11 Urine Catheterized - Lang Catheter Urine Culture - Final No growth. Procedures Date of Service Date of Service: 07/17/22 Progress Note: A&P Assessment and plan (1) Acute GI bleeding: Status: Acute Assessment and Plan: 2 tarry stools today with drop in hct currently being transfused I discussed EGD with patient for further evaluation of bleeding this will be arranged for 07/18. She is aware of risks and benefits and agrees to proceed. Time Spent With Patient Time: Total time spent is greater than 50% in coordination of care (as documented) at patient's floor/unit and/or counseling patient: Quality Stroke Does the patient have a stroke diagnosis?: No VTE Prior VTE?: No VTE Risk Level:: Medical - moderate - high VTE Device Contraindication: N/A - Device Ordered VTE Drug Contraindication: Treatment Not Indicated
--- NOTE | 2022-07-17 16:47 | MHC.SHP ---
Pre-Procedural Eval Section A Date of Service: 07/18/22 The patient is an INPATIENT: Yes Changes since office visit: No Cold of Flu in the past 2 weeks, No New Medical Problems, No Changes in Medication and No Patient answered all questions The History & Physical has been completed within 30 days and I have reviewed it.: Yes Section B Chief Complaint: Hypothermia, abd ascites Allergies: Allergies Allergy/AdvReac Type Severity Reaction Status Date / Time No Known Allergies Allergy Verified 07/19/21 14:20 [No Known Allergies*] Plan I have reviewed the history and physical and performed a pertinent physical examination on my patient. No changes have occurred unless specified.
[2022-07-17] MEDS: Pantoprazole Sodium 40 MG/10 ML VIAL IVPUSH (17:14)
[2022-07-17 20:20] LABS: Glucose, Whole Blood 162 mg/dL (60-115)
[2022-07-17] MEDS: Lactulose 20 GM/30 ML SOLUTION PO (20:59)
[2022-07-17 22:34] LABS: Hematocrit 28.1 % (37.0-47.0); Hemoglobin 9.5 g/dl (12.0-16.0); Mean Corpuscular HGB Conc 33.8 g/dl (31.0-35.0); Mean Corpuscular Hemoglobin 30.8 pg (27.0-33.0); Mean Corpuscular Volume 91.2 fL (80.0-98.0); Mean Platelet Volume 10.2 fL (9.4-12.3); Red Blood Count 3.08 X10*6/uL (4.20-5.50); Red Cell Distribution Width 14.7 % (11.0-16.0); White Blood Count 5.2 X10*3/uL (4.8-10.8)
[2022-07-17 22:46] LABS: Platelet Count 83 X10*3/uL (160-400)
[2022-07-18] VITALS (12 sets, daily range): BP systolic 95–184; BP diastolic 57–89; PULSE 68–113; RESP 14–20; TEMP 35.9–36.8; O2SAT 94–100
[2022-07-18] MEDS: ondansetron HCL 4 MG/2 ML VIAL IVPUSH (06:16)
[2022-07-18] MEDS: Pantoprazole Sodium 40 MG/10 ML VIAL IVPUSH ×2 (06:16→16:31)
[2022-07-18] MEDS: Octreotide Acetate 500 MCG in 0.9 % Sodium Chloride 500 ML 50.1 MCG IVCONT (06:16)
[2022-07-18 06:25] LABS: Hematocrit 27.9 % (37.0-47.0); Hemoglobin 9.2 g/dl (12.0-16.0); Mean Corpuscular Hemoglobin 30.5 pg (27.0-33.0); Mean Corpuscular Volume 92.4 fL (80.0-98.0); Mean Platelet Volume 10.5 fL (9.4-12.3); Platelet Count 88 X10*3/uL (160-400); Red Blood Count 3.02 X10*6/uL (4.20-5.50); Red Cell Distribution Width 15.1 % (11.0-16.0); White Blood Count 4.5 X10*3/uL (4.8-10.8)
[2022-07-18 06:30] LABS: INTERNATIONAL NORM RATIO 2.4 (0.9-1.1); Prothrombin Time 28.7 SEC (10.0-13.1)
[2022-07-18 07:53] LABS: Glucose, Whole Blood 162 mg/dL (60-115)
[2022-07-18 08:07] LABS: Blood Urea Nitrogen 17 mg/dL (9-16); Calcium 7.9 mg/dL (8.4-10.2); Creatinine Clr Calc Pharmacy 98.3; Estimated Glomerular Filt Rate > 60; Glucose Random 176 mg/dL (60-115)
[2022-07-18 08:08] LABS: Alanine Aminotransferase 7 U/L (0-31); Albumin Level 2.9 g/dL (3.5-5.0); Alkaline Phosphatase 42 U/L (39-117); Aspartate Amino Transferase 15 U/L (5-31); Bilirubin Direct 0.8 mg/dL (0.0-0.5); Total Protein 4.6 g/dL (6.5-8.0)
[2022-07-18 08:18] LABS: Anion Gap 14 (12-20); Carbon Dioxide 21 mmol/L (22-29); Chloride 112 mmol/L (96-108); Potassium 4.4 mmol/L (3.3-5.1); Sodium 143 mmol/L (135-145)
[2022-07-18] MEDS: Midodrine HCl 5 MG TABLET PO ×3 (08:31→20:48)
[2022-07-18] MEDS: cefTRIAXone sodium 1 GM in 0.9 % Sodium Chloride 50 ML IV (08:32)
[2022-07-18] MEDS: Insulin Lispro 100 UNIT/ML 3 ML VIAL SUBCUT ×2 (08:35→21:09)
[2022-07-18] MEDS: 0.9 % Sodium Chloride Flush 3 ML SYRINGE IVFLUSH (08:52)
[2022-07-18] MEDS: HYDROmorphone HCl 0.5 MG/0.5 ML SYRINGE IVPUSH ×2 (09:00→21:02)
[2022-07-18 10:07] LABS: Magnesium 1.6 mg/dL (1.6-2.6)
[2022-07-18 11:34] LABS: Glucose, Whole Blood 132 mg/dL (60-115)
--- NOTE | 2022-07-18 12:00 | MHC.CLN ---
F/U PT IS CURRENTLY NPO DUE TO SCHEDULED EGD TODAY WHEN DIET TO ADVANCE, RECOMMEND ADDING ENSURE BID TO INCREASE KCALS AND PROMOTE WOUND HEALING SUPP TO PROVIDE 700KCALS, 40G PROTEIN FOLLOWING WITH TEAM
--- NOTE | 2022-07-18 15:19 | PM.OP ---
Brief Operative Note Date of Service: 07/18/22 Pre-op diagnosis: gi bleed Post-op diagnosis: same Procedure: egd Surgeon: Manoj Mesa Anesthesia: MAC Was an Deckhand Crab Boat used for this Procedure?: No Estimated blood loss (mL): 2 Pathology: other Condition: stable Disposition: PACU
--- NOTE | 2022-07-18 15:20 | PM.EVENT ---
Event Note Date of Service: 07/18/22 Event Note: GI egd shows: esopahgeal varices and portalhypertensive gastropathy without bleeding 10 mm prepyloric and 5mm egj ulcers, nonbleeding, suspect these were the source for bleed. rec advance diet follow hct, inr vit k iv hold off on b sara for prophylaxis given low bps. octreotide dc'd
--- NOTE | 2022-07-18 15:56 | HO.PM.IMPN ---
Subjective Subjective Date of Service: 07/20/22 Interval History: EGD with small nonbleeding ulcers at GE junction and pre-pylorus; nonbleeding esophageal varices and nonbleeding portal hypertensive gastropathy Denies abd pain No lightheadedness Review of Systems Review of Systems: Yes all other systems are reviewed and are negative Physical Exam Vital Signs: Vital Signs: Last Vital Signs Temp 98 F 07/18/22 15:28 Pulse 82 07/18/22 15:28 Resp 16 07/18/22 15:28 BP 113/60 07/18/22 15:28 Pulse Ox 96 07/18/22 15:28 O2 Del Method Simple Mask 07/18/22 15:28 O2 Flow Rate 8 07/18/22 15:13 BMI result Body Mass Index 32.0 Gen: chronically ill-appearing HEENT: sclera anicteric, moist mucus membranes Neck: supple Lungs: clear to auscultation bilaterally Heart: regular rate and rhythm, no murmurs Abd: soft, non-tender, non-distended Ext: no edema Skin: warm/well-perfused Neuro: alert and oriented x3, no focal findings Psych: appropriate affect Objective Data Active Medications Dextrose (Dextrose 50 % 25 Gm/50 Ml Syringe) 25 gm IVPUSH Q15M PRN; Protocol PRN Reason: per Hypoglycemia Standing Ord. Docusate Sodium (Docusate Sodium 100 Mg Capsule) 100 mg PO DAILY PRN PRN Reason: Constipation Glucose (Glucose Gel 15 Gm Gel..Gram.) 15 gm PO Q15M PRN; Protocol PRN Reason: per Hypoglycemia Standing Ord. Hydromorphone HCl (Hydromorphone Hcl 0.5 Mg/0.5 Ml Syringe) 0.5 mg IVPUSH Q4H PRN; Protocol PRN Reason: Pain, Moderate (Pain Scale 4-6 Last Admin: 07/18/22 09:00 Dose: 0.5 mg Documented By: JONO Ceftriaxone Sodium 1 gm/ (Sodium Chloride) 50 mls @ 100 mls/hr IV Q24H [facility] Stop: 07/22/22 08:29 Last Infusion: 07/18/22 10:22 Dose: 0 mls/hr Documented By: JONO Insulin Glargine (Insulin Glargine,Hum.Rec.Anlog 100 Unit/Ml 10 Ml Vial) 5 unit SUBCUT DAILY@2100 [facility] Last Admin: 07/17/22 21:00 Dose: 5 unit Documented By: MAIK Insulin Human Lispro (Insulin Lispro 100 Unit/Ml 3 Ml Vial) 0 unit SUBCUT QIDACHS [facility]; Protocol Last Admin: 07/18/22 11:54 Dose: Not Given Documented By: JONO Non-Admin Reason: No Insulin Coverage Lactulose (Lactulose 20 Gm/30 Ml Solution) 20 gm PO BID [facility] Last Admin: 07/18/22 10:21 Dose: Not Given Documented By: JONO Non-Admin Reason: NPO Midodrine (Midodrine Hcl 5 Mg Tablet) 5 mg PO TID [facility] Last Admin: 07/18/22 08:31 Dose: 5 mg Documented By: JONO Ondansetron HCl (Ondansetron Hcl 4 Mg/2 Ml Vial) 4 mg IVPUSH Q6H PRN PRN Reason: Nausea Last Admin: 07/18/22 06:16 Dose: 4 mg Documented By: MAIK Pantoprazole Sodium (Pantoprazole Sodium 40 Mg/10 Ml Vial) 40 mg IVPUSH BID@0630,1630 [facility] Last Admin: 07/18/22 06:16 Dose: 40 mg Documented By: MAIK Pharmacy Consult (Consult Rx Perform Med Rec) 1 each MISCELLANE ONCE PRN PRN Reason: Consult order Pregabalin (Pregabalin 25 Mg Capsule) 25 mg PO BID [facility] Last Admin: 07/18/22 10:21 Dose: Not Given Documented By: JONO Non-Admin Reason: NPO Rifaximin (Rifaximin 550 Mg Tablet) 550 mg PO TID [facility] Last Admin: 07/18/22 10:21 Dose: Not Given Documented By: JONO Non-Admin Reason: NPO Sodium Chloride (0.9 % Sodium Chloride Flush 3 Ml Syringe) 3 ml IVFLUSH QSHIFT [facility] Last Admin: 07/18/22 08:52 Dose: 3 ml Documented By: JONO Labs CBC & Chem 7: 07/20/22 07:24 07/20/22 07:24 Labs: Laboratory Results - last 24 hr 07/15/22 07/17/22 07/17/22 15:45 09:12 16:16 MCV MCH MCHC RDW Plt Count MPV Absolute Nucleated RBC Nucleated RBC % (auto) Smear Path Review SEE NOTE PT INR Anion Gap Estim Creat Clear Calc Estimated GFR POC Glucose 153 H Random Glucose Calcium Magnesium Total Bilirubin Direct Bilirubin AST ALT Alkaline Phosphatase Total Protein Albumin Blood Type O Positive Antibody Screen NEGATIVE Crossmatch See Detail 07/17/22 07/17/22 07/18/22 20:02 22:22 05:43 MCV 91.2 D 92.4 MCH 30.8 30.5 MCHC 33.8 33.0 RDW 14.7 15.1 Plt Count 83 L 88 L MPV 10.2 10.5 Absolute Nucleated RBC 0.000 0.000 Nucleated RBC % (auto) 0.0 0.0 Smear Path Review PT INR Anion Gap Estim Creat Clear Calc Estimated GFR POC Glucose 162 H Random Glucose Calcium Magnesium Total Bilirubin Direct Bilirubin AST ALT Alkaline Phosphatase Total Protein Albumin Blood Type Antibody Screen Crossmatch 07/18/22 07/18/22 07/18/22 05:43 05:43 05:43 MCV MCH MCHC RDW Plt Count MPV Absolute Nucleated RBC Nucleated RBC % (auto) Smear Path Review PT 28.7 H INR 2.4 H Anion Gap 14 Estim Creat Clear Calc 98.3 Estimated GFR > 60 POC Glucose Random Glucose 176 H Calcium 7.9 L Magnesium 1.6 Total Bilirubin 4.0 H Direct Bilirubin 0.8 H AST 15 ALT 7 Alkaline Phosphatase 42 Total Protein 4.6 L Albumin 2.9 L Blood Type Antibody Screen Crossmatch 07/18/22 07/18/22 07:48 11:28 MCV MCH MCHC RDW Plt Count MPV Absolute Nucleated RBC Nucleated RBC % (auto) Smear Path Review PT INR Anion Gap Estim Creat Clear Calc Estimated GFR POC Glucose 162 H 132 H Random Glucose Calcium Magnesium Total Bilirubin Direct Bilirubin AST ALT Alkaline Phosphatase Total Protein Albumin Blood Type Antibody Screen Crossmatch Microbiology Microbiology Results: Microbiology 07/14/22 02:22 Gram Stain - Final Peritoneal Fluid Routine Culture - Final No growth after 2 days Anaerobic Culture - Preliminary No growth to date. Assessment and Plan (1) Acute GI bleeding: Status: Acute (2) Acute on chronic blood loss anemia: Status: Acute (3) Hepatic failure due to alcoholism: Status: Acute (4) Encephalopathy: Status: Acute Plan hospital d#5 48yo F with EtOH cirrhosis, recently discharged from [facility] 2 days prior to presentation, presented with hypoglycemia and altered mental status # acute blood loss anemia due to acute GI bleed with melena - transfused 2u pRBCs, EGD done today, continue IV pantoprazole + IV octreotide + IV ceftriaxone, monitor CBC # toxic-metabolic encephalopathy - multifactorial due to infection, GI bleed, and liver cirrhosis # hypoglycemia - due to cirrhosis; improved after D10 # hypothermia - no evidence of SBP on paracentesis; temperature has resolved # enterocolitis, not - likely findings due to hypoalbuminemia from cirrhosis, d/c'ed metrnidazole # hypotension - due to chronic cirrhosis. received dexamethasone, IV Fluids, and albumin. random cortisol 11 - hx of varices but BP too low for beta-sara # ascites due to cirrhosis - s/p 2 paracenteses of 4L and 2.5L. cell count not consistent with SBP but had gotten ABX at [facility] # coagulopathy due to cirrhosis - vit K; monitor INR # encephalopathy, hepatic - rifaxmin # VTE ppx: SCDs # dispo: anticipate home with [facility]NA In my clinical judgment, the patient requires continued inpatient hospitalization for the following reasons: coagulopathy, anemia Quality Stroke Does the patient have a stroke diagnosis?: No VTE Prior VTE?: No VTE Risk Level:: Medical - moderate - high VTE Device Contraindication: N/A - Device Ordered VTE Drug Contraindication: Treatment Not Indicated
[2022-07-18] MEDS: rifAXIMin 550 MG TABLET PO ×2 (16:31→20:48)
[2022-07-18 16:32] LABS: Glucose, Whole Blood 135 mg/dL (60-115)
[2022-07-18] MEDS: Phytonadione (Vit K1) 10 MG in 0.9 % Sodium Chloride 50 ML 51 MG IV (16:42)
[2022-07-18 20:45] LABS: Glucose, Whole Blood 340 mg/dL (60-115)
[2022-07-18] MEDS: Lactulose 20 GM/30 ML SOLUTION PO (20:48)
[2022-07-18] MEDS: Pregabalin 25 MG CAPSULE PO (20:48)
[2022-07-18 21:01] LABS: Glucose, Whole Blood 373 mg/dL (60-115)
[2022-07-18] MEDS: Insulin Glargine,Hum.rec.anlog 100 UNIT/ML 10 ML VIAL SUBCUT (21:01)
[2022-07-19] VITALS (7 sets, daily range): BP systolic 90–136; BP diastolic 53–88; PULSE 63–77; RESP 15–20; TEMP 36.1–36.8; O2SAT 96–100
--- NOTE | 2022-07-19 03:39 | OP_ITS ---
SURGEON: Manoj Mesa MD INDICATIONS: Upper GI bleeding. PREOPERATIVE DIAGNOSIS: POSTOPERATIVE DIAGNOSIS: PROCEDURE PERFORMED: Upper endoscopy with biopsy. ESTIMATED BLOOD LOSS: COMPLICATIONS: ANESTHESIA: Monitored anesthesia care. ASSISTANTS: SPECIMENS: DESCRIPTION OF PROCEDURE: History and physical performed. The risks and benefits of the procedure were explained to the patient. Informed consent was obtained. The patient was placed in the left lateral decubitus position. The Olympus video gastroscope was introduced into the esophagus, stomach, and duodenum. Examination was performed. The scope was removed. She tolerated the procedure well and was taken to recovery in stable condition. FINDINGS: 1. Esophagus: There were 3 chains of grade 2 varices extending from the EG junction at 35 cm to 24 cm. There was no stigmata of recent hemorrhage. There was a small 5 to 6 mm ulcer at the EG junction, which was not bleeding. 2. Stomach: Stomach showed changes of portal hypertensive gastropathy without active bleeding. There was a 10 mm x 6 mm to 8 mm pre-pyloric ulcer with a clean base at 11 o'clock, 2 cm away from the pylorus. No therapy was performed. A single antral biopsy was obtained to evaluate for H pylori. 3. Duodenum: The bulb and second portion were normal. IMPRESSION: 1. Pre-pyloric ulcer. 2. Ulcer at the EG junction. 3. Nonbleeding esophageal varices. 4. Portal hypertensive gastropathy. RECOMMENDATION: 1. Advance diet. 2. Follow up with the biopsy results. 3. Monitor INR and hematocrit. Vitamin K has been ordered. If she does have rebleeding, I would recommend fresh frozen plasma be given immediately and consideration of repeat endoscopy. 4. Consider starting Nadolol if blood pressures allow, but I would recommend holding off on this for now given her relatively low blood pressure. MD ODESSA Ludwig/LYNDSEY / [id number]
[2022-07-19] MEDS: 0.9 % Sodium Chloride Flush 3 ML SYRINGE IVFLUSH ×4 (04:27→20:56)
[2022-07-19] MEDS: Pantoprazole Sodium 40 MG/10 ML VIAL IVPUSH ×2 (06:06→16:38)
[2022-07-19 07:13] LABS: Hematocrit 26.9 % (37.0-47.0); Hemoglobin 8.9 g/dl (12.0-16.0); Mean Corpuscular HGB Conc 33.1 g/dl (31.0-35.0); Mean Corpuscular Hemoglobin 31.1 pg (27.0-33.0); Mean Corpuscular Volume 94.1 fL (80.0-98.0); Mean Platelet Volume 10.3 fL (9.4-12.3); Red Blood Count 2.86 X10*6/uL (4.20-5.50); Red Cell Distribution Width 16.2 % (11.0-16.0); White Blood Count 3.5 X10*3/uL (4.8-10.8)
[2022-07-19 07:14] LABS: Platelet Count 87 X10*3/uL (160-400)
--- NOTE | 2022-07-19 07:15 | HO.POSTANES ---
Post Anesthesia Evaluation Post Anesthesia Evaluation Vital Signs: Vital Signs Temp Pulse Resp BP Pulse Ox O2 Del Method O2 Flow Rate 07/19/22 04:00 97.0 F 76 17 90/57 L 96 07/19/22 00:43 97.2 F 63 15 136/63 100 Nasal Cannula 1 07/18/22 23:50 96.9 F 71 16 98/60 94 Room Air 07/18/22 20:00 97.7 F 113 H 17 184/89 H 95 Nasal Cannula Anesthesia: General Mental Status: Awake Pain Control: Satisfactory Nausea/Vomiting: None Hydration: Adequate Anesthesia-Related Issues: No Anes. Related Issues
[2022-07-19 07:18] LABS: INTERNATIONAL NORM RATIO 1.8 (0.9-1.1); Prothrombin Time 21.5 SEC (10.0-13.1)
[2022-07-19 07:39] LABS: Alanine Aminotransferase 7 U/L (0-31); Albumin Level 2.8 g/dL (3.5-5.0); Alkaline Phosphatase 46 U/L (39-117); Aspartate Amino Transferase 15 U/L (5-31); Bilirubin Total 2.4 mg/dL (0.0-1.0); Blood Urea Nitrogen 15 mg/dL (9-16); Calcium 8.2 mg/dL (8.4-10.2); Creatinine Clr Calc Pharmacy 77.7; Estimated Glomerular Filt Rate > 60; Glucose Random 233 mg/dL (60-115); Magnesium 1.6 mg/dL (1.6-2.6); Total Protein 4.7 g/dL (6.5-8.0)
[2022-07-19 07:50] LABS: Anion Gap 10 (12-20); Carbon Dioxide 23 mmol/L (22-29); Chloride 110 mmol/L (96-108); Potassium 3.9 mmol/L (3.3-5.1); Sodium 139 mmol/L (135-145)
[2022-07-19 08:24] LABS: Glucose, Whole Blood 263 mg/dL (60-115)
[2022-07-19] MEDS: Insulin Lispro 100 UNIT/ML 3 ML VIAL SUBCUT ×4 (08:26→20:55)
[2022-07-19] MEDS: cefTRIAXone sodium 1 GM in 0.9 % Sodium Chloride 50 ML IV (08:26)
[2022-07-19] MEDS: rifAXIMin 550 MG TABLET PO ×3 (08:26→20:54)
[2022-07-19] MEDS: Lactulose 20 GM/30 ML SOLUTION PO ×2 (08:26→20:54)
[2022-07-19] MEDS: Pregabalin 25 MG CAPSULE PO ×2 (08:26→20:54)
[2022-07-19] MEDS: Midodrine HCl 5 MG TABLET PO ×3 (08:26→20:54)
[2022-07-19 11:12] LABS: Glucose, Whole Blood 259 mg/dL (60-115)
[2022-07-19] MEDS: ondansetron HCL 4 MG/2 ML VIAL IVPUSH (12:19)
--- NOTE | 2022-07-19 12:45 | HO.PM.IMPN ---
Subjective Subjective Date of Service: 07/19/22 Interval History: Overnight mild blood in stools as per nursing report. Pt unaware. Gastrointestinal Gastrointestinal: Reports hematochezia Physical Exam Vital Signs: Vital Signs: Last Vital Signs Temp 98.1 F 07/19/22 11:35 Pulse 77 07/19/22 11:35 Resp 16 07/19/22 11:35 BP 130/88 07/19/22 11:35 Pulse Ox 98 07/19/22 11:35 O2 Del Method 07/19/22 11:35 O2 Flow Rate 1 07/19/22 00:43 BMI result Body Mass Index 32.0 Const: Other: Constitutional : Awake with stimulation, looks lethargic and tired Neck : Normal inspection, Supple Cardiovascular : RRR, no JVP, no lower extremity edema Respiratory : Fair bilateral air entry, no crackles, wheezes or rhonchi Gastrointestinal: soft, lax, decreased bowel sounds, distended abdomen with mild tenderness Skin : Warm, Dry Neurological : Alert & oriented to self, No focal deficit General: cooperative and no acute distress Eyes: General: appearance normal, both eyes and all related structures Resp: Effort & Inspection: normal respiratory effort Auscultation: clear to auscultation bilaterally Cardio: Rate: regular rate Rhythm: regular rhythm GI: Other: Abdomen is distended, tender on palpation, worse on the right lower quadrant Palpation (GI): Soft to palpation Auscultation: normal bowel sounds Skin: Other: Bruising along the medial aspect of right lower extremity General skin exam: no rashes or lesions noted Neuro: Cognition (Neuro): normal cognition Extrem: General: Yes normal to inspection and Yes no pedal edema Objective Data Active Medications Dextrose (Dextrose 50 % 25 Gm/50 Ml Syringe) 25 gm IVPUSH Q15M PRN; Protocol PRN Reason: per Hypoglycemia Standing Ord. Docusate Sodium (Docusate Sodium 100 Mg Capsule) 100 mg PO DAILY PRN PRN Reason: Constipation Glucose (Glucose Gel 15 Gm Gel..Gram.) 15 gm PO Q15M PRN; Protocol PRN Reason: per Hypoglycemia Standing Ord. Hydromorphone HCl (Hydromorphone Hcl 0.5 Mg/0.5 Ml Syringe) 0.5 mg IVPUSH Q4H PRN; Protocol PRN Reason: Pain, Moderate (Pain Scale 4-6 Last Admin: 07/18/22 21:02 Dose: 0.5 mg Documented By: ELENA Ceftriaxone Sodium 1 gm/ (Sodium Chloride) 50 mls @ 100 mls/hr IV Q24H [facility] Stop: 07/22/22 08:29 Last Infusion: 07/19/22 10:16 Dose: 0 mls/hr Documented By: DIPTI Insulin Glargine (Insulin Glargine,Hum.Rec.Anlog 100 Unit/Ml 10 Ml Vial) 5 unit SUBCUT DAILY@2100 [facility] Last Admin: 07/18/22 21:01 Dose: 5 unit Documented By: ELENA Insulin Human Lispro (Insulin Lispro 100 Unit/Ml 3 Ml Vial) 0 unit SUBCUT QIDACHS [facility]; Protocol Last Admin: 07/19/22 12:15 Dose: 4 unit Documented By: DIPTI Lactulose (Lactulose 20 Gm/30 Ml Solution) 20 gm PO BID [facility] Last Admin: 07/19/22 08:26 Dose: 20 gm Documented By: DIPTI Midodrine (Midodrine Hcl 5 Mg Tablet) 5 mg PO TID [facility] Last Admin: 07/19/22 08:26 Dose: 5 mg Documented By: DIPTI Ondansetron HCl (Ondansetron Hcl 4 Mg/2 Ml Vial) 4 mg IVPUSH Q6H PRN PRN Reason: Nausea Last Admin: 07/19/22 12:19 Dose: 4 mg Documented By: DIPTI Pantoprazole Sodium (Pantoprazole Sodium 40 Mg/10 Ml Vial) 40 mg IVPUSH BID@0630,1630 [facility] Last Admin: 07/19/22 06:06 Dose: 40 mg Documented By: ELENA Pharmacy Consult (Consult Rx Perform Med Rec) 1 each MISCELLANE ONCE PRN PRN Reason: Consult order Pregabalin (Pregabalin 25 Mg Capsule) 25 mg PO BID [facility] Last Admin: 07/19/22 08:26 Dose: 25 mg Documented By: DIPTI Rifaximin (Rifaximin 550 Mg Tablet) 550 mg PO TID [facility] Last Admin: 07/19/22 08:26 Dose: 550 mg Documented By: DIPTI Sodium Chloride (0.9 % Sodium Chloride Flush 3 Ml Syringe) 3 ml IVFLUSH QSHIFT [facility] Last Admin: 07/19/22 08:26 Dose: 3 ml Documented By: DIPTI Labs CBC & Chem 7: 07/19/22 06:25 07/19/22 06:25 Labs: Laboratory Results - last 24 hr 07/18/22 07/18/22 07/18/22 16:25 20:30 20:58 MCV MCH MCHC RDW Plt Count MPV Absolute Nucleated RBC Nucleated RBC % (auto) PT INR Anion Gap Estim Creat Clear Calc Estimated GFR POC Glucose 135 H 340 H 373 H* Random Glucose Calcium Magnesium Total Bilirubin AST ALT Alkaline Phosphatase Total Protein Albumin 07/19/22 07/19/22 07/19/22 06:25 06:25 06:25 MCV 94.1 MCH 31.1 MCHC 33.1 RDW 16.2 H Plt Count 87 L MPV 10.3 Absolute Nucleated RBC 0.000 Nucleated RBC % (auto) 0.0 PT 21.5 H INR 1.8 H Anion Gap 10 L Estim Creat Clear Calc 77.7 Estimated GFR > 60 POC Glucose Random Glucose 233 H Calcium 8.2 L Magnesium 1.6 Total Bilirubin 2.4 H AST 15 ALT 7 Alkaline Phosphatase 46 Total Protein 4.7 L Albumin 2.8 L 07/19/22 07/19/22 08:20 11:07 MCV MCH MCHC RDW Plt Count MPV Absolute Nucleated RBC Nucleated RBC % (auto) PT INR Anion Gap Estim Creat Clear Calc Estimated GFR POC Glucose 263 H 259 H Random Glucose Calcium Magnesium Total Bilirubin AST ALT Alkaline Phosphatase Total Protein Albumin Microbiology Microbiology Results: Microbiology 07/14/22 02:22 Gram Stain - Final Peritoneal Fluid Routine Culture - Final No growth after 2 days Anaerobic Culture - Final NO GROWTH AFTER 5 DAYS 07/13/22 23:18 Blood Culture - Final Blood - Venous No growth after 5 days. 07/13/22 23:18 Blood Culture - Final Blood - Venous No growth after 5 days. Assessment and Plan (1) Acute on chronic blood loss anemia: Status: Acute (2) Acute GI bleeding: Status: Acute (3) Hepatic failure due to alcoholism: Status: Acute Plan hospital d#5 48yo F with EtOH cirrhosis, recently discharged from [facility] 2 days prior to presentation, presented with hypoglycemia and altered mental status # acute blood loss anemia due to acute GI bleed with melena - transfused 2u pRBCs, EGD done 12/1. continue IV pantoprazole + IV ceftriaxone, monitor CBC - octreotide d/c # toxic-metabolic encephalopathy - multifactorial due to infection, GI bleed, and liver cirrhosis #IDDM -increased basal regimen # hypoglycemia - due to cirrhosis; - resolved # hypothermia - no evidence of SBP on paracentesis; temperature has resolved # enterocolitis, not - likely findings due to hypoalbuminemia from cirrhosis, d/c'ed metrnidazole # hypotension - due to chronic cirrhosis. received dexamethasone, IV Fluids, and albumin. random cortisol 11 - hx of varices but BP too low for beta-sara # ascites due to cirrhosis - s/p 2 paracenteses of 4L and 2.5L. cell count not consistent with SBP but had gotten ABX at [facility] # coagulopathy due to cirrhosis - vit K; monitor INR # encephalopathy, hepatic - rifaxmin # VTE ppx: SCDs # dispo: anticipate home with VNA In my clinical judgment, the patient requires continued inpatient hospitalization for the following reasons: ongoing GI bleed. Quality Stroke Does the patient have a stroke diagnosis?: No VTE Prior VTE?: No VTE Risk Level:: Medical - moderate - high VTE Device Contraindication: N/A - Device Ordered VTE Drug Contraindication: Treatment Not Indicated
--- NOTE | 2022-07-19 12:45 | PC.NURSE ---
Patient indwelling catheter removed today at 1145am. [place] in place. Patient dtv between [id number].
--- NOTE | 2022-07-19 13:03 | MHC.CM.PN ---
CM was informed by RN/Do that Patient's Sister/Mariusz was requesting to see CM. Before CM was able to get to Patient's room, Mariusz had to leaver but asked RN to have CM call her. CM called Mariusz at [phone], but was only able to leaver a voice message, requesting a return call. CM awaits a call back from Mariusz and CM will continue to follow.
[2022-07-19 16:36] LABS: Glucose, Whole Blood 165 mg/dL (60-115)
[2022-07-19] MEDS: HYDROmorphone HCl 0.5 MG/0.5 ML SYRINGE IVPUSH ×2 (16:38→20:56)
[2022-07-19 20:50] LABS: Glucose, Whole Blood 171 mg/dL (60-115)
[2022-07-19] MEDS: Insulin Glargine,Hum.rec.anlog 100 UNIT/ML 10 ML VIAL 10 UNIT SUBCUT (20:56)
[2022-07-20] VITALS (7 sets, daily range): BP systolic 89–117; BP diastolic 52–80; PULSE 67–76; RESP 14–20; TEMP 36.3–36.8; O2SAT 94–100
--- NOTE | 2022-07-20 | EEG_ITS ---
This is a 16-channel EEG with an EKG lead. The patient is reported awake and drowsy during the tracing. Background EEG rhythm is diffusely slow in theta to delta range, somewhat more so on the left side with amplitudes of 5 to 50 microvolt with no obvious paroxysmal tendency or any other focal finding. Cardiac lead does not reveal any significant abnormality. Photic stimulation does not produce any significant driving. Hyperventilation is not performed. IMPRESSION: Generalized slowing suggestive of underlying metabolic toxic encephalopathy. MD JC Barrera/LYNDSEY / [id number]
[2022-07-20] MEDS: Pantoprazole Sodium 40 MG/10 ML VIAL IVPUSH (05:20)
[2022-07-20 07:32] LABS: MANUAL DIFF FLAG NO
[2022-07-20 07:41] LABS: Basophils Percent Auto 0.5 % (0-2); Hematocrit 30.1 % (37.0-47.0); Hemoglobin 9.6 g/dl (12.0-16.0); INTERNATIONAL NORM RATIO 1.7 (0.9-1.1); Imm Gran Abs Auto 0.01 X10*3/uL (0.00-0.03); Imm Gran Pct Auto 0.2 % (0.0-0.4); Lymphocytes Absolute Auto 0.8 X10*3/uL (1.2-4.9); Lymphocytes Percent Auto 19.2 % (20-40); Mean Corpuscular HGB Conc 31.9 g/dl (31.0-35.0); Mean Corpuscular Hemoglobin 30.8 pg (27.0-33.0); Mean Corpuscular Volume 96.5 fL (80.0-98.0); Mean Platelet Volume 10.5 fL (9.4-12.3); Monocytes Absolute Auto 0.3 X10*3/uL (0.1-1.2); Monocytes Percent Auto 7.6 % (2-11); Neutrophils Percent Auto 72.5 % (45-73); Prothrombin Time 20.2 SEC (10.0-13.1); Red Blood Count 3.12 X10*6/uL (4.20-5.50); Red Cell Distribution Width 17.1 % (11.0-16.0); White Blood Count 4.1 X10*3/uL (4.8-10.8)
[2022-07-20 07:44] LABS: Platelet Count 87 X10*3/uL (160-400)
[2022-07-20 07:45] LABS: Glucose, Whole Blood 179 mg/dL (60-115)
[2022-07-20 08:04] LABS: Alanine Aminotransferase 10 U/L (0-31); Albumin Level 2.8 g/dL (3.5-5.0); Alkaline Phosphatase 58 U/L (39-117); Anion Gap 8 (12-20); Aspartate Amino Transferase 21 U/L (5-31); Bilirubin Total 2.2 mg/dL (0.0-1.0); Blood Urea Nitrogen 12 mg/dL (9-16); Carbon Dioxide 26 mmol/L (22-29); Chloride 108 mmol/L (96-108); Creatinine Clr Calc Pharmacy 79.6; Estimated Glomerular Filt Rate > 60; Glucose Random 191 mg/dL (60-115); Potassium 4.4 mmol/L (3.3-5.1); Sodium 138 mmol/L (135-145)
[2022-07-20] MEDS: Midodrine HCl 5 MG TABLET PO ×3 (10:16→20:50)
[2022-07-20] MEDS: Pregabalin 25 MG CAPSULE PO ×2 (10:16→20:50)
[2022-07-20] MEDS: rifAXIMin 550 MG TABLET PO ×3 (10:16→20:50)
[2022-07-20] MEDS: cefTRIAXone sodium 1 GM in 0.9 % Sodium Chloride 50 ML IV (10:17)
[2022-07-20] MEDS: Lactulose 20 GM/30 ML SOLUTION PO ×2 (10:17→20:51)
[2022-07-20] MEDS: Insulin Lispro 100 UNIT/ML 3 ML VIAL SUBCUT ×4 (10:18→20:50)
[2022-07-20 11:25] LABS: Glucose, Whole Blood 277 mg/dL (60-115)
--- NOTE | 2022-07-20 11:38 | HO.PM.IMPN ---
Subjective Subjective Date of Service: 07/20/22 Interval History: seen and examined feels her belly is disntended and more painful denies n/v/d Review of Systems Negative except HPI/interval history. Physical Exam Vital Signs: Vital Signs: Last Vital Signs Temp 98.1 F 07/20/22 10:57 Pulse 72 07/20/22 10:57 Resp 16 07/20/22 10:57 BP 117/64 07/20/22 10:57 Pulse Ox 98 07/20/22 10:57 O2 Del Method 07/20/22 10:57 O2 Flow Rate 1 07/19/22 00:43 BMI result Body Mass Index 32.0 Const: Other: General - no acute distress, appears comfortable Cardiovascular - regular rate and rhythm, S1-S2 Lungs - normal respiratory effort, clear to auscultation bilaterally, no wheezing Abdomen - distneded with +fluid thrill; minimally tender without peritoneal signs Extremities - no edema bilaterally Neuro - awake and alert, no focal deficits Objective Data Active Medications Dextrose (Dextrose 50 % 25 Gm/50 Ml Syringe) 25 gm IVPUSH Q15M PRN; Protocol PRN Reason: per Hypoglycemia Standing Ord. Docusate Sodium (Docusate Sodium 100 Mg Capsule) 100 mg PO DAILY PRN PRN Reason: Constipation Glucose (Glucose Gel 15 Gm Gel..Gram.) 15 gm PO Q15M PRN; Protocol PRN Reason: per Hypoglycemia Standing Ord. Hydromorphone HCl (Hydromorphone Hcl 0.5 Mg/0.5 Ml Syringe) 0.5 mg IVPUSH Q4H PRN; Protocol PRN Reason: Pain, Moderate (Pain Scale 4-6 Last Admin: 07/19/22 20:56 Dose: 0.5 mg Documented By: ELENA Ceftriaxone Sodium 1 gm/ (Sodium Chloride) 50 mls @ 100 mls/hr IV Q24H [facility] Stop: 07/22/22 08:29 Last Infusion: 07/20/22 11:10 Dose: 0 mls/hr Documented By: DIPTI Insulin Glargine (Insulin Glargine,Hum.Rec.Anlog 100 Unit/Ml 10 Ml Vial) 10 unit SUBCUT DAILY@2100 [facility] Last Admin: 07/19/22 20:56 Dose: 10 unit Documented By: ELENA Insulin Human Lispro (Insulin Lispro 100 Unit/Ml 3 Ml Vial) 0 unit SUBCUT QIDACHS [facility]; Protocol Last Admin: 07/20/22 10:18 Dose: 2 unit Documented By: LAURIE Lactulose (Lactulose 20 Gm/30 Ml Solution) 20 gm PO BID [facility] Last Admin: 07/20/22 10:17 Dose: 20 gm Documented By: LAURIE Midodrine (Midodrine Hcl 5 Mg Tablet) 5 mg PO TID [facility] Last Admin: 07/20/22 10:16 Dose: 5 mg Documented By: LAURIE Ondansetron HCl (Ondansetron Hcl 4 Mg/2 Ml Vial) 4 mg IVPUSH Q6H PRN PRN Reason: Nausea Last Admin: 07/19/22 12:19 Dose: 4 mg Documented By: DIPTI Pantoprazole Sodium (Pantoprazole Sodium 40 Mg/10 Ml Vial) 40 mg IVPUSH BID@0630,1630 [facility] Last Admin: 07/20/22 05:20 Dose: 40 mg Documented By: ELENA Pharmacy Consult (Consult Rx Perform Med Rec) 1 each MISCELLANE ONCE PRN PRN Reason: Consult order Pregabalin (Pregabalin 25 Mg Capsule) 25 mg PO BID [facility] Last Admin: 07/20/22 10:16 Dose: 25 mg Documented By: LAURIE Rifaximin (Rifaximin 550 Mg Tablet) 550 mg PO TID [facility] Last Admin: 07/20/22 10:16 Dose: 550 mg Documented By: LAURIE Sodium Chloride (0.9 % Sodium Chloride Flush 3 Ml Syringe) 3 ml IVFLUSH QSHIFT [facility] Last Admin: 07/20/22 07:26 Dose: Not Given Documented By: WOODY Non-Admin Reason: See Note Labs CBC & Chem 7: 07/20/22 07:24 07/20/22 07:24 Labs: Laboratory Results - last 24 hr 07/19/22 07/19/22 07/20/22 16:33 20:32 07:24 MCV 96.5 MCH 30.8 MCHC 31.9 RDW 17.1 H Plt Count 87 L MPV 10.5 Immature Gran % (Auto) 0.2 Neut % (Auto) 72.5 Lymph % (Auto) 19.2 L [place] % (Auto) 7.6 Eos % (Auto) 0.0 Baso % (Auto) 0.5 Lymph # (Auto) 0.8 L [place] # (Auto) 0.3 Eos # (Auto) 0.0 Baso # (Auto) 0.0 Abs Immat Gran (auto) 0.01 Absolute Neuts (auto) 3.0 Absolute Nucleated RBC 0.000 Nucleated RBC % (auto) 0.0 PT INR Anion Gap Estim Creat Clear Calc Estimated GFR POC Glucose 165 H 171 H Random Glucose Calcium Total Bilirubin AST ALT Alkaline Phosphatase Total Protein Albumin 07/20/22 07/20/22 07/20/22 07:24 07:24 07:34 MCV MCH MCHC RDW Plt Count MPV Immature Gran % (Auto) Neut % (Auto) Lymph % (Auto) [place] % (Auto) Eos % (Auto) Baso % (Auto) Lymph # (Auto) [place] # (Auto) Eos # (Auto) Baso # (Auto) Abs Immat Gran (auto) Absolute Neuts (auto) Absolute Nucleated RBC Nucleated RBC % (auto) PT 20.2 H INR 1.7 H Anion Gap 8 L Estim Creat Clear Calc 79.6 Estimated GFR > 60 POC Glucose 179 H Random Glucose 191 H Calcium 8.0 L Total Bilirubin 2.2 H AST 21 ALT 10 Alkaline Phosphatase 58 Total Protein 5.0 L Albumin 2.8 L 07/20/22 11:00 MCV MCH MCHC RDW Plt Count MPV Immature Gran % (Auto) Neut % (Auto) Lymph % (Auto) [place] % (Auto) Eos % (Auto) Baso % (Auto) Lymph # (Auto) [place] # (Auto) Eos # (Auto) Baso # (Auto) Abs Immat Gran (auto) Absolute Neuts (auto) Absolute Nucleated RBC Nucleated RBC % (auto) PT INR Anion Gap Estim Creat Clear Calc Estimated GFR POC Glucose 277 H Random Glucose Calcium Total Bilirubin AST ALT Alkaline Phosphatase Total Protein Albumin Microbiology Microbiology Results: Microbiology 07/14/22 02:22 Gram Stain - Final Peritoneal Fluid Routine Culture - Final No growth after 2 days Anaerobic Culture - Final NO GROWTH AFTER 5 DAYS Assessment and Plan (1) Acute on chronic blood loss anemia: Status: Acute (2) Acute GI bleeding: Status: Acute (3) Hepatic failure due to alcoholism: Status: Acute Plan hospital d#5 48yo F with EtOH cirrhosis, recently discharged from [facility] 2 days prior to presentation, presented with hypoglycemia and altered mental status # acute blood loss anemia due to acute GI bleed with melena likely secondary to esophageal varices and portal-hypertensive gastropathy, pre-pyloric + EGJ uclers - transfused 2u pRBCs, EGD done 07/19 (varices + portal gastropathy without active bleeding -- but likely source of bleed was uclers). s/p octreotide on IV PPI, will transition to oral BB on hold due to low bp -- can consider starting as outpatient (for varices) # toxic-metabolic encephalopathy - multifactorial due to infection, GI bleed, and liver cirrhosis resolved #IDDM -increased basal regimen # hypoglycemia - due to cirrhosis; - resolved # hypothermia - no evidence of SBP on paracentesis; temperature has resolved # enterocolitis, not - likely findings due to hypoalbuminemia from cirrhosis, d/c'ed metrnidazole # hypotension - due to chronic cirrhosis. received dexamethasone, IV Fluids, and albumin. random cortisol 11 - hx of varices but BP too low for beta-sara # ascites due to cirrhosis - s/p 2 paracenteses of 4L and 2.5L. cell count not consistent with SBP but had gotten ABX at [facility] pt with further distention of abdomen, hard to say if clinically more ascites -- will check abd u/s # coagulopathy due to cirrhosis - vit K; monitor INR # encephalopathy, hepatic - rifaxmin # VTE ppx: SCDs # dispo: anticipate home with VNA In my clinical judgment, the patient requires continued inpatient hospitalization for the following reasons: worsening ascites requiring work up Quality Stroke Does the patient have a stroke diagnosis?: No VTE Prior VTE?: No VTE Risk Level:: Medical - moderate - high VTE Device Contraindication: N/A - Device Ordered VTE Drug Contraindication: Treatment Not Indicated
--- NOTE | 2022-07-20 11:58 | MHC.CLN ---
F/U PO INTAKE 75-100% DIET RX: 2000DM 2GM NA-APPROPRIATE RECOMMEND STARTING ENSURE MAX BID TO INCREASE KCALS AND PROMOTE WOUND HEALING SUPP TO PROVIDE 300KCALS, 60G PROTEIN FOLLOWING WITH TEAM
--- NOTE | 2022-07-20 15:30 | MHC.CM.PN ---
per rounds pt may be dcd today spoke with sister an updated her on pt needing a vna beulah has approved aNY VNA THAT ACCEPT WHICH IS [facility] NOTIFIED OF THEIR ACCEPTANCE
[2022-07-20] MEDS: Omeprazole 40 MG CAPSULE.DR PO (15:44)
[2022-07-20] MEDS: 0.9 % Sodium Chloride Flush 3 ML SYRINGE IVFLUSH ×2 (15:44→20:50)
[2022-07-20 16:49] LABS: Glucose, Whole Blood 296 mg/dL (60-115)
[2022-07-20 20:01] LABS: Glucose, Whole Blood 258 mg/dL (60-115)
[2022-07-20] MEDS: Insulin Glargine,Hum.rec.anlog 100 UNIT/ML 10 ML VIAL 10 UNIT SUBCUT (20:51)
--- NOTE | 2022-07-20 21:30 | PM.EVENT ---
Event Note Date of Service: 07/20/22 Event Note: Was called by nursing that pt had an episode of seizure (lasting approx 5min). It broke, currently hemodynamically stable, following commands. Order CT head, EEG. Consulting neuro. Defer anti-epileptics for now
[2022-07-20] MEDS: ondansetron HCL 4 MG/2 ML VIAL IVPUSH (23:45)
[2022-07-20] MEDS: HYDROmorphone HCl 0.5 MG/0.5 ML SYRINGE IVPUSH (23:45)
[2022-07-21 03:52] VITALS: BP 98/60; PULSE 69; RESP 16; TEMP 36.6; O2SAT 96
[2022-07-21] MEDS: Omeprazole 40 MG CAPSULE.DR PO ×2 (06:01→15:49)
[2022-07-21 07:26] LABS: Glucose, Whole Blood 159 mg/dL (60-115)
[2022-07-21 07:33] VITALS: BP 140/62; PULSE 66; RESP 16; TEMP 36.5; O2SAT 98
[2022-07-21 09:05] LABS: Hematocrit 29.4 % (37.0-47.0); Hemoglobin 9.6 g/dl (12.0-16.0); Mean Corpuscular HGB Conc 32.7 g/dl (31.0-35.0); Mean Corpuscular Hemoglobin 31.5 pg (27.0-33.0); Mean Corpuscular Volume 96.4 fL (80.0-98.0); Mean Platelet Volume 11.2 fL (9.4-12.3); Red Blood Count 3.05 X10*6/uL (4.20-5.50); White Blood Count 4.4 X10*3/uL (4.8-10.8)
[2022-07-21] MEDS: cefTRIAXone sodium 1 GM in 0.9 % Sodium Chloride 50 ML IV (09:07)
[2022-07-21] MEDS: Insulin Lispro 100 UNIT/ML 3 ML VIAL SUBCUT ×4 (09:08→21:59)
[2022-07-21] MEDS: Midodrine HCl 5 MG TABLET PO ×3 (09:08→21:58)
[2022-07-21] MEDS: Pregabalin 25 MG CAPSULE PO ×2 (09:08→21:58)
[2022-07-21] MEDS: 0.9 % Sodium Chloride Flush 3 ML SYRINGE IVFLUSH ×3 (09:08→22:25)
[2022-07-21] MEDS: rifAXIMin 550 MG TABLET PO ×3 (09:08→21:58)
[2022-07-21] MEDS: Lactulose 20 GM/30 ML SOLUTION PO ×2 (09:08→21:58)
[2022-07-21 09:18] LABS: Ammonia 56 umol/L (13-55)
[2022-07-21 09:23] LABS: Platelet Count 89 X10*3/uL (160-400)
[2022-07-21 09:30] LABS: Anion Gap 7 (12-20); Blood Urea Nitrogen 10 mg/dL (9-16); Carbon Dioxide 26 mmol/L (22-29); Chloride 106 mmol/L (96-108); Estimated Glomerular Filt Rate > 60; Glucose Random 170 mg/dL (60-115); Potassium 3.8 mmol/L (3.3-5.1); Sodium 135 mmol/L (135-145)
--- NOTE | 2022-07-21 10:28 | P.PNIM_ITS ---
Subjective Subjective Date of Service: 07/21/22 Interval History: seen and examined does not recall events which occurred overnight this AM AAOx3 Review of Systems abdominal pain Physical Exam Vital Signs: Vital Signs: Last Vital Signs Temp 97.7 F 07/21/22 07:33 Pulse 66 07/21/22 07:33 Resp 16 07/21/22 07:33 BP 140/62 H 07/21/22 07:33 Pulse Ox 98 07/21/22 07:33 O2 Del Method 07/21/22 07:33 O2 Flow Rate 1 07/19/22 00:43 BMI result Body Mass Index 32.0 Const: Other: General - no acute distress, appears comfortable Cardiovascular - regular rate and rhythm, S1-S2 Lungs - normal respiratory effort, clear to auscultation bilaterally, no wheezing Abdomen - distneded with +fluid thrill; minimally tender without peritoneal si gns Extremities - no edema bilaterally Neuro - awake and alert, no focal deficits Objective Data Active Medications Dextrose (Dextrose 50 % 25 Gm/50 Ml Syringe) 25 gm IVPUSH Q15M PRN; Protocol PRN Reason: per Hypoglycemia Standing Ord. Docusate Sodium (Docusate Sodium 100 Mg Capsule) 100 mg PO DAILY PRN PRN Reason: Constipation Glucose (Glucose Gel 15 Gm Gel..Gram.) 15 gm PO Q15M PRN; Protocol PRN Reason: per Hypoglycemia Standing Ord. Hydromorphone HCl (Hydromorphone Hcl 0.5 Mg/0.5 Ml Syringe) 0.5 mg IVPUSH Q4H PRN; Protocol PRN Reason: Pain, Moderate (Pain Scale 4-6 Last Admin: 07/20/22 23:45 Dose: 0.5 mg Documented By: RENNY Ceftriaxone Sodium 1 gm/ (Sodium Chloride) 50 mls @ 100 mls/hr IV Q24H [facility] Stop: 07/22/22 08:29 Last Admin: 07/21/22 09:07 Dose: 100 mls/hr Documented By: GM Insulin Glargine (Insulin Glargine,Hum.Rec.Anlog 100 Unit/Ml 10 Ml Vial) 10 unit SUBCUT DAILY@2100 [facility] Last Admin: 07/20/22 20:51 Dose: 10 unit Documented By: RENNY Insulin Human Lispro (Insulin Lispro 100 Unit/Ml 3 Ml Vial) 0 unit SUBCUT QIDACHS [facility]; Protocol Last Admin: 07/21/22 09:08 Dose: 2 unit Documented By: GM Lactulose (Lactulose 20 Gm/30 Ml Solution) 20 gm PO BID [facility] Last Admin: 07/21/22 09:08 Dose: 20 gm Documented By: GM Midodrine (Midodrine Hcl 5 Mg Tablet) 5 mg PO TID [facility] Last Admin: 07/21/22 09:08 Dose: 5 mg Documented By: GM Omeprazole (Omeprazole 40 Mg Capsule.) 40 mg PO BID@0630,1630 [facility] Last Admin: 07/21/22 06:01 Dose: 40 mg Documented By: RENNY Ondansetron HCl (Ondansetron Hcl 4 Mg/2 Ml Vial) 4 mg IVPUSH Q6H PRN PRN Reason: Nausea Last Admin: 07/20/22 23:45 Dose: 4 mg Documented By: RENNY Pharmacy Consult (Consult Rx Perform Med Rec) 1 each MISCELLANE ONCE PRN PRN Reason: Consult order Pregabalin (Pregabalin 25 Mg Capsule) 25 mg PO BID [facility] Last Admin: 07/21/22 09:08 Dose: 25 mg Documented By: GM Rifaximin (Rifaximin 550 Mg Tablet) 550 mg PO TID [facility] Last Admin: 07/21/22 09:08 Dose: 550 mg Documented By: GM Sodium Chloride (0.9 % Sodium Chloride Flush 3 Ml Syringe) 3 ml IVFLUSH QSHIFT [facility] Last Admin: 07/21/22 09:08 Dose: 3 ml Documented By: GM Labs CBC & Chem 7: 07/21/22 08:53 07/21/22 08:53 Labs: Laboratory Results - last 24 hr 07/20/22 07/20/22 07/20/22 11:00 16:46 19:43 MCV MCH MCHC RDW Plt Count MPV Absolute Nucleated RBC Nucleated RBC % (auto) Anion Gap Estim Creat Clear Calc Estimated GFR POC Glucose 277 H 296 H 258 H Random Glucose Calcium Ammonia 07/21/22 07/21/22 07/21/22 07:11 08:53 08:53 MCV 96.4 MCH 31.5 MCHC 32.7 RDW 18.0 H Plt Count 89 L MPV 11.2 Absolute Nucleated RBC 0.000 Nucleated RBC % (auto) 0.0 Anion Gap 7 L Estim Creat Clear Calc 88.0 Estimated GFR > 60 POC Glucose 159 H Random Glucose 170 H Calcium 8.0 L Ammonia 07/21/22 08:53 MCV MCH MCHC RDW Plt Count MPV Absolute Nucleated RBC Nucleated RBC % (auto) Anion Gap Estim Creat Clear Calc Estimated GFR POC Glucose Random Glucose Calcium Ammonia 56 H Assessment and Plan (1) Acute on chronic blood loss anemia: Status: Acute (2) Acute GI bleeding: Status: Acute (3) Hepatic failure due to alcoholism: Status: Acute Plan 48yo F with cirrhosis, recently discharged from [facility] 2 days prior to presentation, presented with hypoglycemia and altered mental status #seizure new onset neurology consult + EEG ordered # acute blood loss anemia due to acute GI bleed with melena likely secondary to esophageal varices and portal-hypertensive gastropathy, pre-pyloric + EGJ uclers - transfused 2u pRBCs, EGD done 07/19 (varices + portal gastropathy without active bleeding -- but likely source of bleed was uclers). s/p octreotide PPI # toxic-metabolic encephalopathy - multifactorial due to infection, GI bleed, and liver cirrhosis resolved #IDDM -increased basal regimen # hypoglycemia - due to cirrhosis; - resolved # hypothermia - no evidence of SBP on paracentesis; temperature has resolved # enterocolitis, not - likely findings due to hypoalbuminemia from cirrhosis, d/c'ed metrnidazole # hypotension - due to chronic cirrhosis. received dexamethasone, IV Fluids, and albumin. random cortisol 11 - hx of varices but BP too low for beta-sara # ascites due to cirrhosis - s/p 2 paracenteses of 4L and 2.5L. cell count not consistent with SBP but had gotten ABX at [facility] u/s showing increasing ascites -- will start low dose lasix+aldactone # coagulopathy due to cirrhosis - vit K; monitor INR # encephalopathy, hepatic - rifaxmin # VTE ppx: SCDs # dispo: anticipate home with VNA In my clinical judgment, the patient requires continued inpatient hospitalization for the following reasons: worsening ascites requiring work up Quality Stroke Does the patient have a stroke diagnosis?: No VTE Prior VTE?: No VTE Risk Level:: Medical - moderate - high VTE Device Contraindication: N/A - Device Ordered VTE Drug Contraindication: Treatment Not Indicated
--- NOTE | 2022-07-21 10:51 | P.CNNE_ITS ---
History of Present Illness Data of Consult Service Date: 07/21/22 Primary Care Provider: Eden Carrillo MD HPI Reason for consult: Seizure 56 years old woman with liver cirrhosis of unknown cause recently discharged from [facility] came to this hospital after she was found to be either unresponsive or with change in mental status. While she is in the hospital she was noted to have a ?seizure?. Further details were not available and patient said she did not know what happened. She was not known to have seizure disorder. Review of Systems Review of Systems: No headache or focal numbness or weakness [facility] Past Medical History Medical History (Updated 07/21/22 @ 10:53 by Merari Engel MD) Cirrhosis Cirrhosis Diabetes (~01/31/21) Diabetes mellitus with hyperglycemia Diabetes type 2, controlled Gallstones Hepatic failure due to alcoholism HTN (hypertension) Kidney, perinephric abscess Portal hypertension SBP (spontaneous bacterial peritonitis) UTI (urinary tract infection) UTI (urinary tract infection) UTI due to extended-spectrum beta lactamase (ESBL) producing Escherichia coli Varices of other sites Family History Family History Mother No problems noted. Father No problems noted. Social History Social History Household Members: Children Household Members Other:: Patient's son Housing: House Do you presently have visiting nurse or other home services: No Alcohol intake: never Patient Tobacco Use Status: Never used Tobacco e-Cigarette/Vaping Use: Never Used Second Hand Smoke Exposure: No Advance Directives Date on File: 06/15/21 service: No Current occupational status: unemployed and disabled Cognitive needs: No Hearing needs: No Vision needs: No Meds Allergies Allergy/AdvReac Type Severity Reaction Status Date / Time No Known Allergies Allergy Verified 07/19/21 14:20 [No Known Allergies*] Active Medications: Current Medications Dextrose (Dextrose 50 % 25 Gm/50 Ml Syringe) 25 gm IVPUSH Q15M PRN; Protocol PRN Reason: per Hypoglycemia Standing Ord. Docusate Sodium (Docusate Sodium 100 Mg Capsule) 100 mg PO DAILY PRN PRN Reason: Constipation Furosemide (Furosemide 20 Mg Tablet) 20 mg PO DAILY [facility]; Protocol Glucose (Glucose Gel 15 Gm Gel..Gram.) 15 gm PO Q15M PRN; Protocol PRN Reason: per Hypoglycemia Standing Ord. Hydromorphone HCl (Hydromorphone Hcl 0.5 Mg/0.5 Ml Syringe) 0.5 mg IVPUSH Q4H PRN; Protocol PRN Reason: Pain, Moderate (Pain Scale 4-6 Last Admin: 07/20/22 23:45 Dose: 0.5 mg Ceftriaxone Sodium 1 gm/ (Sodium Chloride) 50 mls @ 100 mls/hr IV Q24H [facility] Stop: 07/22/22 08:29 Last Admin: 07/21/22 09:07 Dose: 100 mls/hr Insulin Glargine (Insulin Glargine,Hum.Rec.Anlog 100 Unit/Ml 10 Ml Vial) 10 unit SUBCUT DAILY@2100 [facility] Last Admin: 07/20/22 20:51 Dose: 10 unit Insulin Human Lispro (Insulin Lispro 100 Unit/Ml 3 Ml Vial) 0 unit SUBCUT QIDACHS [facility]; Protocol Last Admin: 07/21/22 09:08 Dose: 2 unit Lactulose (Lactulose 20 Gm/30 Ml Solution) 20 gm PO BID [facility] Last Admin: 07/21/22 09:08 Dose: 20 gm Midodrine (Midodrine Hcl 5 Mg Tablet) 5 mg PO TID [facility] Last Admin: 07/21/22 09:08 Dose: 5 mg Omeprazole (Omeprazole 40 Mg Capsule.Dr) 40 mg PO BID@0630,1630 [facility] Last Admin: 07/21/22 06:01 Dose: 40 mg Ondansetron HCl (Ondansetron Hcl 4 Mg/2 Ml Vial) 4 mg IVPUSH Q6H PRN PRN Reason: Nausea Last Admin: 07/20/22 23:45 Dose: 4 mg Pharmacy Consult (Consult Rx Perform Med Rec) 1 each MISCELLANE ONCE PRN PRN Reason: Consult order Pregabalin (Pregabalin 25 Mg Capsule) 25 mg PO BID [facility] Last Admin: 07/21/22 09:08 Dose: 25 mg Rifaximin (Rifaximin 550 Mg Tablet) 550 mg PO TID [facility] Last Admin: 07/21/22 09:08 Dose: 550 mg Sodium Chloride (0.9 % Sodium Chloride Flush 3 Ml Syringe) 3 ml IVFLUSH QSHIFT [facility] Last Admin: 07/21/22 09:08 Dose: 3 ml Spironolactone (Spironolactone 25 Mg Tablet) 12.5 mg PO DAILY [facility]; Protocol Home Medications Medication Instructions Recorded Confirmed Last Taken Type carvedilol 3.125 mg tablet 3.125 mg PO BID 04/25/22 07/14/22 05/07/22 History furosemide 20 mg tablet 20 mg PO DAILY 07/14/22 07/14/22 Unknown History insulin glargine 100 unit/mL (3 20 unit subcut QPM 07/14/22 07/14/22 Unknown History mL) subcutaneous pen (Lantus Solostar U-100 Insulin) lactulose 10 gram/15 mL oral 15 ml PO QID 07/14/22 07/14/22 Unknown History solution nystatin 100,000 unit/gram topical 1 appl topical DAILY 07/14/22 07/14/22 Unknown History powder spironolactone 50 mg tablet 50 mg PO DAILY 07/14/22 07/14/22 Unknown History (Aldactone) sulfamethoxazole 800 1 tab PO BID 07/14/22 07/14/22 Unknown History mg-trimethoprim 160 mg tablet Physical Exam Vital Signs: Vital Signs: Last Vital Signs Temp 97.7 F 07/21/22 07:33 Pulse 66 07/21/22 07:33 Resp 16 07/21/22 07:33 BP 140/62 H 07/21/22 07:33 Pulse Ox 98 07/21/22 07:33 O2 Del Method 07/21/22 07:33 O2 Flow Rate 1 07/19/22 00:43 BMI result Body Mass Index 32.0 Neuro: Other: She was alert and awake with normal spontaneity of speech fluency comprehension and affect. Face was symmetrical. Tongue was midline. There was no pronator drift. There was no tremor or asterisks. Deep tendon reflexes were trace to 1+ with left extensor and right flexor plantar. Results Labs CBC & Chem 7: 07/21/22 08:53 07/21/22 08:53 Labs: Short CBC 07/21/22 Range/Units 08:53 WBC 4.4 L (4.8-10.8) X10*3/uL Hgb 9.6 L (12.0-16.0) g/dl Hct 29.4 L (37.0-47.0) % Plt Count 89 L (160-400) X10*3/uL BMP 07/21/22 08:53 Sodium 135 Potassium 3.8 Chloride 106 Carbon Dioxide 26 BUN 10 Creatinine 0.76 Calcium 8.[address] did not reveal any significant abnormality Microbiology Microbiology Results: Microbiology 07/14/22 02:22 Peritoneal Fluid Gram Stain - Final 07/14/22 02:22 Peritoneal Fluid Routine Culture - Final No growth after 2 days 07/14/22 02:22 Peritoneal Fluid Anaerobic Culture - Final NO GROWTH AFTER 5 DAYS 07/13/22 23:18 Blood - Venous Blood Culture - Final No growth after 5 days. 07/13/22 23:18 Blood - Venous Blood Culture - Final No growth after 5 days. 07/14/22 10:11 Urine Catheterized - Lang Catheter Urine Culture - Final No growth. Assessment and Plan (1) Seizure: Status: Acute 56 years old woman with liver cirrhosis apparently had a seizure. She also had some type event at home when she did not respond. Her exam revealed left extensor plantar but no obvious abnormality on CT of brain to explain that. My recommendation is to obtain noncontrast MRI of brain and an EEG. If further seizures occur or seizure disorders is confirmed, I would try gabapentin 300 mg 3 times a day as it would not impact her liver situation. Procedures Date of Service Date of Service: 07/21/22
[2022-07-21 11:09] LABS: Glucose, Whole Blood 251 mg/dL (60-115)
[2022-07-21 12:00] VITALS: BP 109/58; PULSE 82; RESP 16; TEMP 37.1; O2SAT 98
[2022-07-21] MEDS: Spironolactone 25 MG TABLET 12.5 MG PO (12:45)
[2022-07-21] MEDS: Furosemide 20 MG TABLET PO (12:45)
[2022-07-21 15:42] VITALS: BP 115/65; PULSE 89; RESP 18; TEMP 37.1; O2SAT 98
[2022-07-21 15:45] LABS: Glucose, Whole Blood 289 mg/dL (60-115)
[2022-07-21] MEDS: HYDROmorphone HCl 0.5 MG/0.5 ML SYRINGE IVPUSH ×2 (15:48→22:20)
[2022-07-21 19:47] VITALS: BP 113/62; PULSE 88; RESP 17; TEMP 37.1; O2SAT 97
[2022-07-21 19:54] LABS: Glucose, Whole Blood 190 mg/dL (60-115)
[2022-07-21] MEDS: Insulin Glargine,Hum.rec.anlog 100 UNIT/ML 10 ML VIAL 10 UNIT SUBCUT (21:59)
[2022-07-21 22:20] VITALS: RESP 16
[2022-07-22] VITALS (8 sets, daily range): BP systolic 100–145; BP diastolic 62–78; PULSE 81–97; RESP 12–20; TEMP 36.4–37.2; O2SAT 96–99
[2022-07-22] MEDS: Omeprazole 40 MG CAPSULE.DR PO ×2 (06:08→16:28)
[2022-07-22] MEDS: HYDROmorphone HCl 0.5 MG/0.5 ML SYRINGE IVPUSH ×2 (06:11→22:47)
[2022-07-22 07:21] LABS: Glucose, Whole Blood 169 mg/dL (60-115)
[2022-07-22] MEDS: ondansetron HCL 4 MG/2 ML VIAL IVPUSH (08:56)
[2022-07-22] MEDS: Insulin Lispro 100 UNIT/ML 3 ML VIAL SUBCUT ×3 (08:59→22:48)
--- NOTE | 2022-07-22 09:42 | P.PNIM_ITS ---
Subjective Subjective Date of Service: 07/22/22 Interval History: seen and examined no further seizures reported reports belly pain and distention Review of Systems Negative except HPI/interval history. Physical Exam Vital Signs: Vital Signs: Last Vital Signs Temp 98.3 F 07/22/22 08:00 Pulse 87 07/22/22 08:00 Resp 12 07/22/22 08:00 BP 126/72 07/22/22 08:00 Pulse Ox 99 07/22/22 04:00 O2 Del Method 07/22/22 04:00 O2 Flow Rate 1 07/19/22 00:43 BMI result Body Mass Index 32.0 Const: Other: General - no acute distress, appears comfortable Cardiovascular - regular rate and rhythm, S1-S2 Lungs - normal respiratory effort, clear to auscultation bilaterally, no wheezing Abdomen - distneded with +fluid thrill; minimally tender without peritoneal signs Extremities - no edema bilaterally Neuro - awake and alert, no focal deficits Objective Data Active Medications Dextrose (Dextrose 50 % 25 Gm/50 Ml Syringe) 25 gm IVPUSH Q15M PRN; Protocol PRN Reason: per Hypoglycemia Standing Ord. Docusate Sodium (Docusate Sodium 100 Mg Capsule) 100 mg PO DAILY PRN PRN Reason: Constipation Furosemide (Furosemide 20 Mg Tablet) 20 mg PO DAILY [facility]; Protocol Last Admin: 07/21/22 12:45 Dose: 20 mg Documented By: GM Glucose (Glucose Gel 15 Gm Gel..Gram.) 15 gm PO Q15M PRN; Protocol PRN Reason: per Hypoglycemia Standing Ord. Hydromorphone HCl (Hydromorphone Hcl 0.5 Mg/0.5 Ml Syringe) 0.5 mg IVPUSH Q4H PRN; Protocol PRN Reason: Pain, Moderate (Pain Scale 4-6 Last Admin: 07/22/22 06:11 Dose: 0.5 mg Documented By: CARMEN Insulin Glargine (Insulin Glargine,Hum.Rec.Anlog 100 Unit/Ml 10 Ml Vial) 10 unit SUBCUT DAILY@2100 [facility] Last Admin: 07/21/22 21:59 Dose: 10 unit Documented By: RENNY Insulin Human Lispro (Insulin Lispro 100 Unit/Ml 3 Ml Vial) 0 unit SUBCUT QIDACHS [facility]; Protocol Last Admin: 07/22/22 08:59 Dose: 2 unit Documented By: RASHAD Lactulose (Lactulose 20 Gm/30 Ml Solution) 20 gm PO BID [facility] Last Admin: 07/21/22 21:58 Dose: 20 gm Documented By: RENNY Midodrine (Midodrine Hcl 5 Mg Tablet) 5 mg PO TID [facility] Last Admin: 07/21/22 21:58 Dose: 5 mg Documented By: RENNY Omeprazole (Omeprazole 40 Mg Capsule.) 40 mg PO BID@0630,1630 [facility] Last Admin: 07/22/22 06:08 Dose: 40 mg Documented By: CARMEN Ondansetron HCl (Ondansetron Hcl 4 Mg/2 Ml Vial) 4 mg IVPUSH Q6H PRN PRN Reason: Nausea Last Admin: 07/22/22 08:56 Dose: 4 mg Documented By: RASHAD Pharmacy Consult (Consult Rx Perform Med Rec) 1 each MISCELLANE ONCE PRN PRN Reason: Consult order Pregabalin (Pregabalin 25 Mg Capsule) 25 mg PO BID [facility] Last Admin: 07/21/22 21:58 Dose: 25 mg Documented By: RENNY Rifaximin (Rifaximin 550 Mg Tablet) 550 mg PO TID [facility] Last Admin: 07/21/22 21:58 Dose: 550 mg Documented By: RENNY Sodium Chloride (0.9 % Sodium Chloride Flush 3 Ml Syringe) 3 ml IVFLUSH QSHIFT [facility] Last Admin: 07/21/22 22:25 Dose: 3 ml Documented By: RENNY Spironolactone (Spironolactone 25 Mg Tablet) 12.5 mg PO DAILY [facility]; Protocol Last Admin: 07/21/22 12:45 Dose: 12.5 mg Documented By: GM Labs CBC & Chem 7: 07/21/22 08:53 07/21/22 08:53 Labs: Laboratory Results - last 24 hr 07/21/22 07/21/22 07/21/22 11:00 15:41 19:50 POC Glucose 251 H 289 H 190 H 07/22/22 07:13 POC Glucose 169 H Assessment and Plan (1) Seizure: Status: Acute Plan 48yo F with cirrhosis, recently discharged from [facility] 2 days prior to presentation, presented with hypoglycemia and altered mental status #seizure new onset neuro input appreicated -- EEG + MRI ordered # ascites due to cirrhosis - s/p 2 paracenteses of 4L and 2.5L. cell count not consistent with SBP but had gotten ABX at [facility] lasix + aldactone started 07/21 plan for therapeutic tap tomorrow # acute blood loss anemia due to acute GI bleed with melena likely secondary to esophageal varices and portal-hypertensive gastropathy, pre-pyloric + EGJ uclers - transfused 2u pRBCs, EGD done 07/19 (varices + portal gastropathy without active bleeding -- but likely source of bleed was uclers). s/p octreotide PPI # toxic-metabolic encephalopathy - multifactorial due to infection, GI bleed, and liver cirrhosis resolved #IDDM -increased basal regimen # hypoglycemia - due to cirrhosis; - resolved # hypothermia - no evidence of SBP on paracentesis; temperature has resolved # enterocolitis, not - likely findings due to hypoalbuminemia from cirrhosis, d/c'ed metrnidazole # hypotension - due to chronic cirrhosis. received dexamethasone, IV Fluids, and albumin. random cortisol 11 - hx of varices but BP too low for beta-sara # coagulopathy due to cirrhosis - vit K; monitor INR # encephalopathy, hepatic - rifaxmin # VTE ppx: SCDs # dispo: anticipate home with VNA In my clinical judgment, the patient requires continued inpatient hospi talization for the following reasons: worsening ascites and seizures requiring work up and treatment Quality Stroke Does the patient have a stroke diagnosis?: No VTE Prior VTE?: No VTE Risk Level:: Medical - moderate - high VTE Device Contraindication: N/A - Device Ordered VTE Drug Contraindication: Treatment Not Indicated
[2022-07-22] MEDS: Pregabalin 25 MG CAPSULE PO ×2 (10:56→22:47)
[2022-07-22] MEDS: Spironolactone 25 MG TABLET 12.5 MG PO (10:57)
[2022-07-22] MEDS: rifAXIMin 550 MG TABLET PO ×3 (10:57→22:47)
[2022-07-22] MEDS: Midodrine HCl 5 MG TABLET PO ×3 (10:57→22:47)
[2022-07-22] MEDS: Furosemide 20 MG TABLET PO (10:57)
[2022-07-22] MEDS: 0.9 % Sodium Chloride Flush 3 ML SYRINGE IVFLUSH ×3 (10:58→22:47)
[2022-07-22] MEDS: Lactulose 20 GM/30 ML SOLUTION PO ×2 (10:58→22:47)
[2022-07-22 11:42] LABS: Glucose, Whole Blood 137 mg/dL (60-115)
[2022-07-22 16:27] LABS: Glucose, Whole Blood 304 mg/dL (60-115)
[2022-07-22 20:27] LABS: Glucose, Whole Blood 296 mg/dL (60-115)
[2022-07-22] MEDS: Insulin Glargine,Hum.rec.anlog 100 UNIT/ML 10 ML VIAL 10 UNIT SUBCUT (22:48)
[2022-07-23 03:42] VITALS: BP 93/56; PULSE 87; RESP 18; TEMP 36.9; O2SAT 100
[2022-07-23 07:37] LABS: Glucose, Whole Blood 281 mg/dL (60-115)
[2022-07-23 08:00] VITALS: BP 99/62; PULSE 75; RESP 12; TEMP 36.3
[2022-07-23] MEDS: Insulin Lispro 100 UNIT/ML 3 ML VIAL SUBCUT ×4 (08:37→20:24)
[2022-07-23] MEDS: Furosemide 20 MG TABLET PO (08:37)
[2022-07-23] MEDS: rifAXIMin 550 MG TABLET PO ×3 (08:37→20:25)
[2022-07-23] MEDS: Lactulose 20 GM/30 ML SOLUTION PO (08:37)
[2022-07-23] MEDS: Pregabalin 25 MG CAPSULE PO ×2 (08:37→20:25)
[2022-07-23] MEDS: Midodrine HCl 5 MG TABLET PO ×3 (08:37→20:25)
[2022-07-23] MEDS: Spironolactone 25 MG TABLET 12.5 MG PO (09:16)
[2022-07-23 11:08] LABS: Glucose, Whole Blood 245 mg/dL (60-115)
--- NOTE | 2022-07-23 11:57 | MHC.CLN ---
F/U PT IS CURRENTLY NPO RECOMMEND RE-STARTING ENSURE MAX BID TO INCREASE KCALS AND PROMOTE WOUND HEALING SUPP TO PROVIDE 300KCALS, 60G PROTEIN FOLLOWING WITH TEAM
[2022-07-23 12:00] VITALS: BP 117/68; PULSE 82; TEMP 36.7; O2SAT 98
--- NOTE | 2022-07-23 13:17 | MHC.CM.PN ---
per rounds pt not medically ready for dc plan remains home w/[facility] caregivers
--- NOTE | 2022-07-23 13:46 | HO.PM.IMPN ---
Subjective Subjective Date of Service: 07/23/22 Interval History: cc: fall, lethargy, confusion interval history:no further seziures, abd pain and distension Cardiovascular Cardiovascular: Reports no additional cardiovascular complaints Respiratory Respiratory: Reports no additional respiratory complaints Physical Exam Vital Signs: Vital Signs: Last Vital Signs Temp 98.0 F 07/23/22 12:00 Pulse 82 07/23/22 12:00 Resp 12 07/23/22 08:00 BP 117/68 07/23/22 12:00 Pulse Ox 98 07/23/22 12:00 O2 Del Method 07/23/22 12:00 O2 Flow Rate 92 07/23/22 08:00 BMI result Body Mass Index 32.0 General: AO X 3, no acute distress Resp: CTA bilateral, no accessory muscles used CVS: S1,S2,RRR GI: soft, non tender, distended Neuro: motor grossly intact, alert Psych: appropriate affect, appropriate insight Objective Data Active Medications Dextrose (Dextrose 50 % 25 Gm/50 Ml Syringe) 25 gm IVPUSH Q15M PRN; Protocol PRN Reason: per Hypoglycemia Standing Ord. Docusate Sodium (Docusate Sodium 100 Mg Capsule) 100 mg PO DAILY PRN PRN Reason: Constipation Furosemide (Furosemide 20 Mg Tablet) 20 mg PO DAILY [facility]; Protocol Last Admin: 07/23/22 08:37 Dose: 20 mg Documented By: DEMETRIO-BREANNEFA Glucose (Glucose Gel 15 Gm Gel..Gram.) 15 gm PO Q15M PRN; Protocol PRN Reason: per Hypoglycemia Standing Ord. Hydromorphone HCl (Hydromorphone Hcl 0.5 Mg/0.5 Ml Syringe) 0.5 mg IVPUSH Q4H PRN; Protocol PRN Reason: Pain, Moderate (Pain Scale 4-6 Last Admin: 07/22/22 22:47 Dose: 0.5 mg Documented By: RENNY Insulin Glargine (Insulin Glargine,Hum.Rec.Anlog 100 Unit/Ml 10 Ml Vial) 10 unit SUBCUT DAILY@2100 [facility] Last Admin: 07/22/22 22:48 Dose: 10 unit Documented By: RENNY Insulin Human Lispro (Insulin Lispro 100 Unit/Ml 3 Ml Vial) 0 unit SUBCUT QIDACHS [facility]; Protocol Last Admin: 07/23/22 12:27 Dose: 4 unit Documented By: DEMETRIO-ELSA Lactulose (Lactulose 20 Gm/30 Ml Solution) 20 gm PO BID [facility] Last Admin: 07/23/22 08:37 Dose: 20 gm Documented By: DEMETRIO-ELSA Midodrine (Midodrine Hcl 5 Mg Tablet) 5 mg PO TID [facility] Last Admin: 07/23/22 08:37 Dose: 5 mg Documented By: DEMETRIO-ELSA Omeprazole (Omeprazole 40 Mg Capsule.) 40 mg PO BID@0630,1630 [facility] Last Admin: 07/23/22 06:41 Dose: Not Given Documented By: RENNY Non-Admin Reason: Patient Refused Ondansetron HCl (Ondansetron Hcl 4 Mg/2 Ml Vial) 4 mg IVPUSH Q6H PRN PRN Reason: Nausea Last Admin: 07/22/22 08:56 Dose: 4 mg Documented By: RASHAD Pharmacy Consult (Consult Rx Perform Med Rec) 1 each MISCELLANE ONCE PRN PRN Reason: Consult order Pregabalin (Pregabalin 25 Mg Capsule) 25 mg PO BID [facility] Last Admin: 07/23/22 08:37 Dose: 25 mg Documented By: DEMETRIO-ELSA Rifaximin (Rifaximin 550 Mg Tablet) 550 mg PO TID [facility] Last Admin: 07/23/22 08:37 Dose: 550 mg Documented By: DEMETRIO-ELSA Sodium Chloride (0.9 % Sodium Chloride Flush 3 Ml Syringe) 3 ml IVFLUSH QSHIFT [facility] Last Admin: 07/23/22 07:04 Dose: Not Given Documented By: WOODY Non-Admin Reason: See Note Spironolactone (Spironolactone 25 Mg Tablet) 12.5 mg PO DAILY [facility]; Protocol Last Admin: 07/23/22 09:16 Dose: 12.5 mg Documented By: WOODY Labs CBC & Chem 7: 07/21/22 08:53 07/21/22 08:53 Labs: Laboratory Results - last 24 hr 07/22/22 07/22/22 07/23/22 16:23 20:23 07:29 POC Glucose 304 H 296 H 281 H 07/23/22 11:03 POC Glucose 245 H Assessment and Plan (1) Seizure: Status: Acute Plan 48yo F with cirrhosis, recently discharged from [facility] 2 days prior to presentation, presented with hypoglycemia and altered mental status seizure new onset neuro input appreicated EEG + MRI pending ascites due to cirrhosis - s/p 2 paracenteses of 4L and 2.5L. cell count not consistent with SBP but had gotten ABX at [facility] lasix + aldactone started 07/21 plan for therapeutic tap today 07/23/22 acute blood loss anemia due to acute GI bleed with melena likely secondary to esophageal varices and portal-hypertensive gastropathy, pre-pyloric + EGJ uclers transfused 2u pRBCs, EGD done 07/19 (varices + portal gastropathy without active bleeding -- but likely source of bleed was uclers). s/p octreotide PPI toxic-metabolic encephalopathy multifactorial due to infection, GI bleed, and liver cirrhosis resolved IDDM insulin hypoglycemia - due to cirrhosis; - resolved hypothermia - no evidence of SBP on paracentesis; temperature has resolved enterocolitis, not - likely findings due to hypoalbuminemia from cirrhosis, d/c'ed metrnidazole hypotension - due to chronic cirrhosis. received dexamethasone, IV Fluids, and albumin. random cortisol 11 - hx of varices but BP too low for beta-sara coagulopathy due to cirrhosis - vit K; monitor INR encephalopathy, hepatic - rifaxmin VTE ppx: SCDs dispo: anticipate home with VNA reason for continued hospitalization:seizure work up, painful ascites Quality Stroke Does the patient have a stroke diagnosis?: No VTE Prior VTE?: No VTE Risk Level:: Medical - moderate - high VTE Device Contraindication: N/A - Device Ordered VTE Drug Contraindication: Treatment Not Indicated
--- NOTE | 2022-07-23 14:53 | HO.RADPN ---
RADIOLOGY Narrative Narrative: RLQ paracentesis performed using 5 fr catheter. L clear yellow fluid removed. No specimen sent.
[2022-07-23] MEDS: Lidocaine HCl 1 % MPF 5 ML VIAL 4 ML SUBCUT (15:20)
[2022-07-23 15:50] VITALS: BP 99/56; PULSE 95; RESP 18; TEMP 36.4; O2SAT 99
[2022-07-23 16:35] LABS: Glucose, Whole Blood 176 mg/dL (60-115)
[2022-07-23] MEDS: Omeprazole 40 MG CAPSULE.DR PO (16:51)
[2022-07-23 19:48] LABS: Glucose, Whole Blood 190 mg/dL (60-115)
[2022-07-23] MEDS: Insulin Glargine,Hum.rec.anlog 100 UNIT/ML 10 ML VIAL 10 UNIT SUBCUT (20:24)
[2022-07-23 23:11] VITALS: BP 111/66; PULSE 87; RESP 16; TEMP 37.2; O2SAT 95
[2022-07-24] MEDS: 0.9 % Sodium Chloride Flush 3 ML SYRINGE IVFLUSH ×2 (00:46→08:24)
[2022-07-24 03:34] VITALS: BP 96/53; PULSE 89; RESP 17; TEMP 36.1; O2SAT 96
[2022-07-24 06:27] LABS: Hematocrit 28.6 % (37.0-47.0); Hemoglobin 9.4 g/dl (12.0-16.0); Mean Corpuscular HGB Conc 32.9 g/dl (31.0-35.0); Mean Corpuscular Hemoglobin 31.4 pg (27.0-33.0); Mean Corpuscular Volume 95.7 fL (80.0-98.0); Mean Platelet Volume 11.4 fL (9.4-12.3); Platelet Count 93 X10*3/uL (160-400); Red Blood Count 2.99 X10*6/uL (4.20-5.50); Red Cell Distribution Width 18.4 % (11.0-16.0); White Blood Count 5.9 X10*3/uL (4.8-10.8)
[2022-07-24] MEDS: Omeprazole 40 MG CAPSULE.DR PO (06:38)
[2022-07-24 06:40] LABS: Anion Gap 8 (12-20); Blood Urea Nitrogen 13 mg/dL (9-16); Calcium 7.8 mg/dL (8.4-10.2); Carbon Dioxide 28 mmol/L (22-29); Chloride 106 mmol/L (96-108); Creatinine Clr Calc Pharmacy 86.8; Estimated Glomerular Filt Rate > 60; Glucose Fasting 309 mg/dL (60-99); Potassium 3.9 mmol/L (3.3-5.1); Sodium 138 mmol/L (135-145)
[2022-07-24 07:05] VITALS: BP 120/70; PULSE 80; RESP 16; TEMP 36.4; O2SAT 97
[2022-07-24 07:28] LABS: Glucose, Whole Blood 289 mg/dL (60-115)
[2022-07-24] MEDS: Lactulose 20 GM/30 ML SOLUTION PO (08:24)
[2022-07-24] MEDS: Furosemide 20 MG TABLET PO (08:24)
[2022-07-24] MEDS: Pregabalin 25 MG CAPSULE PO (08:24)
[2022-07-24] MEDS: rifAXIMin 550 MG TABLET PO (08:24)
[2022-07-24] MEDS: Spironolactone 25 MG TABLET 12.5 MG PO (08:25)
[2022-07-24] MEDS: Insulin Lispro 100 UNIT/ML 3 ML VIAL SUBCUT ×2 (08:29→11:50)
[2022-07-24 11:08] LABS: Glucose, Whole Blood 416 mg/dL (60-115)
--- NOTE | 2022-07-24 11:26 | PM.DS ---
DS: Providers Provider Date of Service: 07/24/22 Date of admission: 07/14/22 05:22 Primary care physician: Eden Carrillo MD Consults: 07/14/22 05:20 Consult to Gastroenterology Routine Consulting Provider: Manoj Mesa Reason for consultation: ascites 07/17/22 06:22 Consult to Gastroenterology Routine Consulting Provider: Tre Yadav Reason for consultation: bleeding per rectum 07/20/22 21:31 Consult to Neurology Routine Consulting Provider: [facility] Reason for consultation: seizure DS: Diagnosis Discharge Diagnosis (1) Seizure: Status: Acute DS: Summary Hospital Course Hospital Course: from initial hpi: Chief Complaint:? abdominal pain 6-year-old female with past medical history of liver cirrhosis, diabetes, hypertension presents to the hospital with complaints of abdominal pain.? Patient was discharged from the hospital on 05/05 with similar presentation of on 04 25 at that time found to have E coli in the abdominal ascites.? Patient was treated with IV antibiotics, and sent home on levofloxacin.? Patient reports that since discharge she continued to have abdominal pain that was intractable, localized mostly to the right upper quadrant, nonradiating, constant,10/10, no alleviating or exacerbating factors.? she denies any nausea or vomiting, no diarrhea or constipation, no fever but has chills, no chest pain or shortness of breath, no urinary symptoms and no lower extremity edema. ? On arrival to the ED patient hemodynamically stable with no significant abnormal vitals Labs are significant for WBC count? of 13.3 which increased from 9.8 on day of discharge, INR of 1.6, sodium of 130, potassium of 4.3, lactic acid of 3.3, UA is positive for leukocyte Estrace and WBC ?CT abdomen shows small amount of ascites with no acute findings ?no attempt to do paracentesis in the ED was made as previous at times on previous admissions had failed ?given the intractable pain and concern for SBP patient started on IV antibiotics and will be admitted for further management hospital course: Patient prolonged hospital course please see medical record for full summary. Patient was admitted for toxic metabolic encephalopathy due to diabetes with hypoglycemia in the setting of cryptogenic liver cirrhosis. Complicated by hypotension and required ICU admission. With dexamethasone, IV fluids midodrine, and albumin she was able to maintain her blood pressure. Course was complicated by seizure which was new onset. EEG was showing general slowing, MRI was unremarkable, patient had symptomatic ascites, she underwent 3 paracenteses which were negative for SBP. Course was complicated by acute blood loss anemia due to GI bleed with melena likely secondary to portal hypertensive gastropathy and pre-pyloric and EG junction ulcers. She was transfused 2 units PRBC. Was treated with octreotide and PPI and hemoglobin stabilized. For buttock encephalopathy she was treated with rifaximin and lactulose. For diabetes she was continue on insulin. Patient is now stable will be discharged home to follow up closely with Gastroenterology. Time Spent with Patient Time attestation: Total time spent providing and/or coordinating discharge services: Discharge coordination time: Greater than 30 minutes Quality: Safe Use of Opioids Does Pt have an Active Cancer Diagnosis on the Problem List?: No Quality: Stroke Does the patient have a stroke diagnosis?: No Physical Exam Vital Signs: Vital Signs: Last Vital Signs Temp 97.5 F 07/24/22 07:05 Pulse 80 07/24/22 07:05 Resp 16 07/24/22 07:05 BP 120/70 07/24/22 07:05 Pulse Ox 97 07/24/22 07:05 O2 Del Method 07/24/22 07:05 O2 Flow Rate 92 07/23/22 08:00 BMI result Body Mass Index 32.0 General: AO X 3, no acute distress Resp: CTA bilateral, no accessory muscles used CVS: S1,S2,RRR GI: soft, non tender, less distended Neuro: motor grossly intact, alert Psych: appropriate affect, appropriate insight DS: Data Data Completed and Pending Completed studies during hospitalization [Text1]: Pending at discharge 07/18/22 14:40 Surgical [PTH] Routine Procedures Drainage of Peritoneal Cavity with Drainage Device, Percutaneous Approach (04/25/22) Drainage of Peritoneal Cavity, Percutaneous Approach (05/08/22) Insertion of Infusion Device into Right Brachial Vein, Percutaneous Approach (06/14/21) Labs on day of discharge: Laboratory Results - last 24 hr 07/23/22 07/23/22 07/24/22 16:23 19:22 05:42 WBC 5.9 RBC 2.99 L Hgb 9.4 L Hct 28.6 L MCV 95.7 MCH 31.4 MCHC 32.9 RDW 18.4 H Plt Count 93 L MPV 11.4 Absolute Nucleated RBC 0.000 Nucleated RBC % (auto) 0.0 Sodium Potassium Chloride Carbon Dioxide Anion Gap BUN Creatinine Estim Creat Clear Calc Estimated GFR POC Glucose 176 H 190 H Fasting Glucose Calcium 07/24/22 07/24/22 07/24/22 05:42 07:09 11:04 WBC RBC Hgb Hct MCV MCH MCHC RDW Plt Count MPV Absolute Nucleated RBC Nucleated RBC % (auto) Sodium 138 Potassium 3.9 Chloride 106 Carbon Dioxide 28 Anion Gap 8 L BUN 13 Creatinine 0.77 Estim Creat Clear Calc 86.8 Estimated GFR > 60 POC Glucose 289 H 416 H* Fasting Glucose 309 H Calcium 7.8 L Discharge Plan Discharge Anticipated Discharge Date/Time: 07/24/22 11:14 Patient Disposition: Home Health Service Discharge Diagnosis: cirrhhosis, gi bleed, seizure Referrals: Manoj Mesa [Physician] - 1 Week Eden Han MD [Primary Care Provider] - 1 Week Discharge Medications: New Xifaxan 550 mg Tablet 550 mg PO TID Qty: 90 0RF midodrine 5 mg Tablet 5 mg PO TID Qty: 90 0RF omeprazole 40 mg Capsule,Delayed Release(Dr/Ec) 40 mg PO BID@0630,1630 Qty: 60 0RF spironolactone 25 mg Tablet 12.5 mg PO DAILY Qty: 30 0RF Protocol: Hold for SBP< HOLD for SBP < : 90 pregabalin [Lyrica] 25 mg Capsule 25 mg PO BID Qty: 60 0RF Continued furosemide 20 mg tablet 20 mg PO DAILY nystatin 100,000 unit/gram powder 1 appl topical DAILY lactulose 10 gram/15 mL solution 15 ml PO QID insulin glargine [Lantus Solostar U-100 Insulin] 100 unit/mL (3 mL) insulin pen 20 unit subcut QPM Discontinued carvedilol 3.125 mg tablet 3.125 mg PO BID oxycodone 5 mg Tablet 10 mg PO Q4H PRN (Reason: severe pain) Qty: 20 0RF Rx Instructions: Partial Fill upon patient request. sulfamethoxazole-trimethoprim 800-160 mg tablet 1 tab PO BID spironolactone [Aldactone] 50 mg tablet 50 mg PO DAILY Discharge Orders: Discharge Order (Routine); Ordered 07/24/22 Ordered By: Eliel Jesin Diet: Diabetic diet Activity on Discharge: As tolerated Stand Alone Forms: Patient Portal Discharge page Care Plan Goals: manage cirrhosis Health Concerns: gi bleed, cirhossis Plan of Treatment: meds as prescribed, follow up with gi Assessment: see above
--- NOTE | 2022-07-24 11:32 | P.F2F_ITS ---
Service Date Service Date: 07/24/22 Encounter Date of encounter: 07/24/22 Reasons for Services Signs and symptoms assessed: weakness Reason for intermediate: medication management, medication treatment and teach disease management Homebound: Leaving the home is medically contraindicated at this time without the asist of a device and/or another person due th the listed conditions above and below. Reason homebound: unsteady gait / fall risk Certification: Based on the above findings, I certify that this patient is confined to the home and needs intermittent intermediate care, physical therapy and/or speech therapy, or continues to need occupational therapy. The patient is under my care, and I have initiated the establishment of the plan of care. The patient will be followed by a physician who will periodically review the plan of care.
--- NOTE | 2022-07-24 11:34 | MHC.CM.PN ---
Patient has been medically cleared for dc to home today with services. A referral was made to [facility] (and per documentation, [facility] has approved)who has been made aware of today's dc. CM met with Patient at bedside and addressed IMM with her (original was given to Patient and a copy has been placed on the chart). Patient is aware of and in agreement with the dc plan. Patient's Sister will be providing transportation to home.
[2022-07-24 12:00] VITALS: BP 125/75; PULSE 75; RESP 17; TEMP 36.6; O2SAT 98
== END 2022-07-24 16:25 | disposition home health service (06) | DRG 432 ==
LOC: HO.ED 07-14 05:20 → HO.EDOVER 07-14 05:30 → HO.ICU 07-14 09:07 → HO.IMC 07-16 14:52
PROVIDERS: Family Medicine; Internal Medicine Cardiovascular Disease; Internal Medicine Gastroenterology; Internal Medicine Pulmonary Disease; Nurse Practitioner Family; Physician Assistant; Radiology Diagnostic Radiology; Student in an Organized Health Care Education/Training Program; Admitting Provider Internal Medicine; Emergency Provider Internal Medicine; PCP Internal Medicine; Visit Provider Internal Medicine
PROC: 0DB78ZX Excision of Stomach, Pylorus, Via Natural or Artificial Opening Endoscopic, Diagnostic (ICD-10-PCS; principal; 2022-07-18 13:40)
DX: K70.31 Alcoholic cirrhosis of liver with ascites (principal); G92.8 Other toxic encephalopathy; I85.11 Secondary esophageal varices with bleeding; K22.11 Ulcer of esophagus with bleeding; K25.4 Chronic or unspecified gastric ulcer with hemorrhage; D68.4 Acquired coagulation factor deficiency; K76.6 Portal hypertension; K91.840 Postprocedural hemorrhage of a digestive system organ or structure following a digestive system procedure; D62 Acute posthemorrhagic anemia; K72.90 Hepatic failure, unspecified without coma; R56.9 Unspecified convulsions; I95.9 Hypotension, unspecified; L89.322 Pressure ulcer of left buttock, stage 2; K31.89 Other diseases of stomach and duodenum; E11.649 Type 2 diabetes mellitus with hypoglycemia without coma; R68.0 Hypothermia, not associated with low environmental temperature; Z20.822 Contact with and (suspected) exposure to COVID-19; Z79.4 Long term (current) use of insulin; Z79.899 Other long term (current) drug therapy
CPT/HCPCS: 36415; 49083; 70450; 70551; 71045; 74018; 74176; 74177; 76705; 80048; 80053; 80076; 80307; 81003; 82040; 82042; 82140; 82272; 82533; 82803; 82945; 82947; 83605; 83615; 83690; 83735; 84100; 84145; 84157; 84300; 84484; 85014; 85018; 85025; 85027; 85610; 86850; 86900; 86901; 86923; 87040; 87070; 87073; 87086; 87205; 87493; 87635; 88305; 88342; 89051; 92950; 93005; 95816; 99285; C1758; J0171; J0692; J0696; J1100; J1170; J2250; J2354; J2405; J3370; J3411; J3430; P9016; P9047; Q9967

== ENCOUNTER 2022-08-09 11:19 | Outpatient (REF) | payer OTHER, SELFPAY ==
--- NOTE | ~2022-08-09 | US_ITS ---
EXAMINATION: US ABDOMEN LIMITED CLINICAL INFORMATION: Ascites. COMPARISON: Ultrasound paracentesis 07/23/2022 TECHNIQUE: Real-time imaging of the abdomen. FINDINGS: Large volume ascites. US/US abdomen limited IMPRESSION: Large volume ascites.
== END 2022-08-09 11:20 | disposition home or self-care (01) ==
LOC: HO.US 11:19
PROVIDERS: Visit Provider Internal Medicine Gastroenterology
DX: R18.8 Other ascites (principal)
CPT/HCPCS: 76705

== ENCOUNTER 2022-08-15 12:51 | Inpatient (IN) | payer OTHER, SELFPAY ==
[2022-08-15] VITALS (12 sets, daily range): BP systolic 108–147; BP diastolic 68–79; PULSE 84–98; RESP 16–20; TEMP 36.7–36.9; O2SAT 96–100; BMI 29.1
--- NOTE | ~2022-08-15 | MR_ITS ---
EXAMINATION: MRI OF THE BRAIN WITHOUT CONTRAST CLINICAL INFORMATION: Possible seizure of unclear etiology. COMPARISON: CT scan of the head 08/17/2022. MRI scan of the brain 07/23/2022. TECHNIQUE: MRI of the brain was obtained using routine sequences without contrast. FINDINGS: No diffusion abnormalities are identified to suggest an acute or subacute infarct. No mass effect or midline shift is seen. There is commensurate prominence of the ventricles and sulci consistent with mild diffuse volume loss. There are scattered areas of increased T2 and FLAIR signal particularly around the periatrial regions, similar compared to prior imaging. The hippocampi are symmetric in size and signal. No extra-axial fluid collections are seen. The brainstem and cerebellum are normal. The study demonstrates a punctate focus of low gradient signal in the mid [place], most consistent with sequelae of a microhemorrhage or microcalcification, which is stable compared to prior imaging. The craniovertebral junction, marrow signal, and midline structures are normal. The major intracranial flow-voids at the level of the [place] are preserved. The dural venous sinus flow-voids are maintained. The mastoid air cells are well-aerated. There is moderate to severe mucoperiosteal thickening circumferentially in the right sphenoid sinus. MR/MR head/brain wo con IMPRESSION: 1. There are no acute bleeds or territorial infarcts. No masses are demonstrated. 2. There are chronic microvascular ischemic changes and there is diffuse volume loss.
--- NOTE | ~2022-08-15 | CT_ITS ---
EXAMINATION: CT abdomen pelvis w IV con CLINICAL INFORMATION: Rule out portal thrombosis COMPARISON: Prior CT 08/18/2022 TECHNIQUE: Multidetector volumetric imaging was performed from the superior aspect of the liver through the pubic symphysis 85 mL Omnipaque 350 injected Sagittal and coronal reformatted images were obtained on the technologist's workstation. This CT examination was performed using dose optimization techniques as appropriate, variously including the following: *Automated exposure control *Adjustment of mA and/or kV according to patient size (this includes techniques or standardized protocols for targeted exams where dose is matched to indication/reason for exam; i.e. extremities or head) *Use of iterative reconstruction technique DLP: 756 mGy-cm FINDINGS: LOWER THORAX: Included lung bases are clear. HEPATOBILIARY: Heterogeneous liver with nodular surface compatible with liver cirrhosis. No CT evidence of focal liver lesion. GALLBLADDER: There is a large gallstone lodged in the gallbladder neck 3.4 cm. SPLEEN: Spleen borderline enlarged 13 cm. PANCREAS: No focal mass or ductal dilatation. STOMACH AND GASTROINTESTINAL TRACT: Stomach is grossly unremarkable. There is no bowel distention or thickening. No CT evidence of appendicitis. ADRENALS: No adrenal nodules. KIDNEYS/URETERS: No hydronephrosis, stones or solid mass lesions. URINARY BLADDER: Partially decompressed. PELVIC VISCERA: Unremarkable PERITONEUM: There is large amount of ascites, this has increased from prior CT. LYMPH NODES: No lymphadenopathy. VASCULAR:Proper enhancement of the portal veins, no evidence of thrombosis. There is engorgement of the portal vein and varicosities around the araseli hepatis, splenic hilum, gastroesophageal junction and umbilicus, this is compatible with portal hypertension and portosystemic shunting. BONES, ABDOMINAL WALL AND SOFT TISSUES: Diffuse subcutaneous emphysema, anasarca, could be due to hypoalbuminemia. CT/CT abdomen pelvis w IV con IMPRESSION: * Large amount of ascites increased from prior CT. * Liver cirrhosis, nodular surface, engorgement of the portal vein and varicosities around the araseli hepatis, splenic hilum, umbilicus and gastroesophageal junction compatible with portal hypertension and portosystemic shunting. No evidence of thrombosis of the portal veins. * Diffuse subcutaneous edema, Anasarca probably due to hypoalbuminemia.. * Large gallstone, Cholelithiasis. * Borderline splenomegaly. * No CT evidence of acute intra-abdominal process to explain patient's pain symptoms.
--- NOTE | ~2022-08-15 | US_ITS ---
EXAMINATION: ULTRASOUND-GUIDED PARACENTESIS CLINICAL INFORMATION: Ascites COMPARISON: Previous abdominal ultrasound most recent from yesterday TECHNIQUE: Procedure and risks and benefits including bleeding, infection and low blood pressure were discussed with the patient and informed consent was obtained. The right lower quadrant was prepped and draped in the usual sterile fashion. The skin and soft tissues were anesthetized with 1% lidocaine plain. Using ultrasound guidance and a 5 [place] catheter, access to the ascitic fluid was obtained. 4 L of fluid was removed. Diagnostic specimen was sent. At the conclusion of the procedure, the patient's blood pressure dropped slightly and she was positioned in Trendelenburg position. Patient suddenly became unresponsive. Vital signs remained stable. CERT call was made. Clinical suspicion was seizure and posterior ictal state. Head CT is pending. FINDINGS: There is a large amount of ascites. US/US paracentesis abd w/image IMPRESSION: Ultrasound-guided paracentesis.
--- NOTE | ~2022-08-15 | US_ITS ---
PROCEDURE: ULTRASOUND-GUIDED PARACENTESIS CLINICAL INFORMATION: Ascites. COMPARISON: None TECHNIQUE: Following explaining ultrasound-guided paracentesis procedure, benefits and risk, a written consent was obtained. Patient was placed supine on ultrasound stretcher and preliminary ultrasound imaging was obtained. An optimal site was selected and marked along the left lower quadrant. The marked area was cleaned and draped in the usual sterile manner. 1% lidocaine was injected at puncture site. Through a small skin incision a 5 [place] [employer] catheter was advanced into the peritoneal space. After observing fluid return, stylet was withdrawn and catheter connected to vacuum bottle via connecting cannula. After draining all fluid and observing no more fluid return, catheter was withdrawn and complete hemostasis achieved at puncture site. Sterile Band-Aid applied postprocedure. Patient tolerated procedure extremely well. FINDINGS: On preliminary ultrasound imaging there is diffuse ascites. Approximately 5.5 L of clear yellowish fluid drained from the left lower quadrant. None of this fluid was sent to lab. US/US paracentesis abd w/image IMPRESSION: Successful ultrasound-guided therapeutic paracentesis performed.
--- NOTE | ~2022-08-15 | CT_ITS ---
EXAMINATION: CT HEAD WITHOUT CONTRAST CLINICAL INFORMATION: Unresponsive COMPARISON: Head CT 07/20/2022, brain MRI 07/23/2022 TECHNIQUE: Imaging was performed from the skull base to vertex without intravenous administration of contrast. This CT examination was performed using dose optimization techniques as appropriate, variously including the following: *Automated exposure control *Adjustment of mA and/or kV according to patient size (this includes techniques or standardized protocols for targeted exams where dose is matched to indication/reason for exam; i.e. extremities or head) *Use of iterative reconstruction technique Total exam dose length product: 591 mGy-cm FINDINGS: No intra or extra-axial fluid collection, hemorrhage, or mass. No ventriculomegaly. No midline shift or herniation. Basal cisterns are patent. Levy-white matter differentiation is maintained. No territorial encephalomalacia. No significant volume loss. There is mild hypoattenuation in the periatrial white matter, unchanged and nonspecific. No calvarial fracture or soft tissue abnormality. Mucosal thickening and partial opacification of the right sphenoid sinus. Mastoid air cells are normally aerated. CT/CT head for stroke IMPRESSION: No acute intracranial pathology.
--- NOTE | ~2022-08-15 | US_ITS ---
EXAMINATION: US ABDOMEN LIMITED CLINICAL INFORMATION: Ascites. COMPARISON: CT scan of August 15, 2022 and ultrasound study of August 09, 2022 TECHNIQUE: Evaluation of the abdomen for ascites. FINDINGS: There is a large amount of ascites being present within all 4 quadrants. US/US abdomen limited IMPRESSION: Large amount of ascites.
--- NOTE | ~2022-08-15 | US_ITS ---
EXAMINATION: US ABDOMEN LIMITED CLINICAL INFORMATION: Abdominal pain rule out portal vein/hepatic vein thrombosis.. COMPARISON: CT scan of August 18, 2022 TECHNIQUE: Real-time imaging of the right upper quadrant abdominal viscera. FINDINGS: Study is extremely limited due to overlying bowel gas and ascites with study being nondiagnostic for possible portal vein or hepatic vein thrombosis. There is moderate ascites present. There is lack of visualization of abdominal organs and study is nondiagnostic for evaluation of the portal vein or hepatic veins. US/US abdomen limited IMPRESSION: Moderate ascites. Nondiagnostic study for portal or hepatic vein thrombosis. CT with contrast or MRI may be of help in further evaluation.
--- NOTE | ~2022-08-15 | XR_ITS ---
EXAMINATION: XR CHEST CLINICAL INFORMATION: For MRI clearance COMPARISON: Chest x-ray 07/13/2022 TECHNIQUE: Frontal view of the chest was obtained. FINDINGS: The lungs are hypoexpanded with minimal patchy opacity in left lung base likely atelectasis or chronic scarring. Heart size is enlarged. Pulmonary vascularity is normal. No gross bony abnormality seen. No radiopaque foreign body seen. There is a large gallstone in the right upper quadrant. XR/XR chest 1V IMPRESSION: 1. Minimal patchy opacity left lung base likely atelectasis or scarring. 2. Mild cardiomegaly.
--- NOTE | ~2022-08-15 | CT_ITS ---
EXAMINATION: CT ABDOMEN AND PELVIS WITHOUT CONTRAST CLINICAL INFORMATION: Diffuse abdominal pain and ascites COMPARISON: CT abdomen and pelvis 07/14/2022 TECHNIQUE: Multidetector volumetric imaging was performed from the superior aspect of the liver through the pubic symphysis. Sagittal and coronal reformatted images were obtained on the technologist's workstation. This CT examination was performed using dose optimization techniques as appropriate, variously including the following: *Automated exposure control *Adjustment of mA and/or kV according to patient size (this includes techniques or standardized protocols for targeted exams where dose is matched to indication/reason for exam; i.e. extremities or head) *Use of iterative reconstruction technique DLP: 899 mGy-cm FINDINGS: LUNG BASES: Trace basilar pleural fluid bilaterally. Mild bibasilar atelectasis. LIVER, GALLBLADDER, AND BILIARY TREE: Cirrhotic liver morphology. No gross liver lesion on limited assessment. No biliary ductal dilation. High-density sludge or noncalcified stone in the gallbladder fundus. Large peripherally calcified gallstone measuring 3.4 cm in size. Smaller dependent gallstone also noted. PANCREAS: Unremarkable. SPLEEN: Unremarkable. ADRENAL GLANDS: Unremarkable. KIDNEYS AND URETERS: The kidneys are normal in size, shape, and attenuation. No hydronephrosis, hydroureter, or calculi seen. Prepped subtly decreased right posterolateral perinephric fluid. BLADDER: Unremarkable. GASTROINTESTINAL TRACT: No dilated bowel loops or bowel wall thickening identified. Normal appendix. No free air. Large volume ascites. Mesenteric edema. ABDOMINAL WALL: Diffuse body wall edema/anasarca. LYMPH NODES: No lymphadenopathy identified. VASCULAR: Normal caliber abdominal aorta. Mild vascular calcifications. Prominent collateral veins/varices in the ventral upper abdomen. PELVIC VISCERA: Unchanged 4.7 cm right adnexal lesion with fat calcification consistent with a dermoid cyst. Gynecologic structures otherwise grossly unremarkable. OSSEOUS STRUCTURES: No acute fracture or suspicious osseous lesion. Minimal multilevel degenerative disc disease. CT/CT abdomen pelvis wo IV con IMPRESSION: 1. Cirrhosis with large volume ascites and diffuse body wall edema/anasarca. 2. Trace bilateral pleural fluid. 3. Cholelithiasis. 4. Unchanged 4.7 cm right ovarian dermoid.
--- NOTE | ~2022-08-15 | CT_ITS ---
EXAMINATION: CT ABDOMEN AND PELVIS WITHOUT CONTRAST CLINICAL INFORMATION: Somnolence. Abdominal pain. COMPARISON: 08/15/2022 TECHNIQUE: Multidetector volumetric imaging was performed from the superior aspect of the liver through the pubic symphysis. Sagittal and coronal reformatted images were obtained on the technologist's workstation. This CT examination was performed using dose optimization techniques as appropriate, variously including the following: *Automated exposure control *Adjustment of mA and/or kV according to patient size (this includes techniques or standardized protocols for targeted exams where dose is matched to indication/reason for exam; i.e. extremities or head) *Use of iterative reconstruction technique DLP: 899 mGy-cm FINDINGS: LUNG BASES: Trace bilateral pleural effusions and accompanying atelectasis. LIVER, GALLBLADDER, AND BILIARY TREE: Cirrhosis. No obvious focal liver lesion. No biliary dilatation. Sludge and stones present within the nondistended gallbladder. PANCREAS: Atrophic but otherwise unremarkable. SPLEEN: Unremarkable. ADRENAL GLANDS: Unremarkable. KIDNEYS AND URETERS: The kidneys are normal in size, shape, and attenuation. No hydronephrosis, hydroureter, or calculi seen. No perinephric stranding. BLADDER: Unremarkable. GASTROINTESTINAL TRACT: The small and large bowel are unremarkable. The appendix is unremarkable. PERITONEUM: Moderate volume ascites, slightly decreased from prior. ABDOMINAL WALL: No hernias. Anasarca. LYMPH NODES: Normal. VASCULAR: Portosystemic collaterals in the epigastrium originating from the umbilical vein, draining into the internal mammary veins. Gastric esophageal varices. PELVIC VISCERA: Stable 4.7 cm right ovarian dermoid. Left ovary and uterus unremarkable. OSSEOUS STRUCTURES: No acute or suspicious osseous abnormalities. CT/CT abdomen pelvis wo IV con IMPRESSION: * No acute findings within the abdomen or pelvis to explain the patient's symptomatology. * Cirrhosis with portal hypertension evidenced by portosystemic collaterals including gastric and esophageal varices. * Moderate volume ascites, slightly decreased from prior. * Cholelithiasis. * Stable 4.7 cm right ovarian dermoid.
--- NOTE | 2022-08-15 13:15 | ECG_ITS ---
Test Reason : LIGHTHEADNESS Blood Pressure : / mmHG Vent. Rate : 090 BPM Atrial Rate : 090 BPM P-R Int : 152 ms QRS Dur : 066 ms QT Int : 380 ms P-R-T Axes : 027 -07 014 degrees QTc Int : 464 ms Normal sinus rhythm Cannot rule out Anterior infarct (cited on or before 15-AUG-2022) Abnormal ECG When compared with ECG of 13-JUL-2022 21:44, Vent. rate has increased BY 31 BPM QT has shortened Referred By: Emely Villarreal Electronically Signed By:BETSEY MEDINA MD
[2022-08-15 13:48] LABS: MANUAL DIFF FLAG NO
[2022-08-15 13:51] LABS: White Blood Count 2.9 X10*3/uL (4.8-10.8)
[2022-08-15 13:52] LABS: Basophils Percent Auto 1.4 % (0-2); Eosinophils Percent Auto 1.4 % (0-4); Hematocrit 33.1 % (37.0-47.0); Hemoglobin 10.7 g/dl (12.0-16.0); Imm Gran Abs Auto 0.01 X10*3/uL (0.00-0.03); Imm Gran Pct Auto 0.3 % (0.0-0.4); Lymphocytes Absolute Auto 0.7 X10*3/uL (1.2-4.9); Lymphocytes Percent Auto 23.9 % (20-40); Mean Corpuscular HGB Conc 32.3 g/dl (31.0-35.0); Mean Corpuscular Hemoglobin 30.7 pg (27.0-33.0); Mean Corpuscular Volume 95.1 fL (80.0-98.0); Mean Platelet Volume 10.3 fL (9.4-12.3); Monocytes Absolute Auto 0.3 X10*3/uL (0.1-1.2); Monocytes Percent Auto 11.3 % (2-11); Neutrophils Absolute Auto 1.8 x10*3/uL (2.0-8.3); Neutrophils Percent Auto 61.7 % (45-73); Platelet Count 132 X10*3/uL (160-400); Red Blood Count 3.48 X10*6/uL (4.20-5.50); Red Cell Distribution Width 16.4 % (11.0-16.0)
[2022-08-15 13:57] LABS: INTERNATIONAL NORM RATIO 1.2 (0.9-1.1); Prothrombin Time 14.4 SEC (10.0-13.1)
--- NOTE | 2022-08-15 13:59 | ED.ABDPAIN ---
HPI - Abdominal Pain General Chief Complaint: Abdominal Pain Stated Complaint: abd Time Seen by Provider: 08/15/22 13:01 Source: patient History of Present Illness HPI narrative: 56-year-old female with past medical history of liver cirrhosis, diabetes, HTN, recent admission to our facility for toxic metabolic encephalopathy due to DM with hypoglycemia in the setting of cryptogenic liver cirrhosis, new onset seizure and GI bleed requiring transfusion, presenting to the ED today complaining of increased abdominal bloating, pain, lightheadedness and nausea x2 days. Per IR patient canceled her scheduled paracentesis on Saturday. Denies known fever, chills, SOB/CP, vomiting/diarrhea, dysuria/hematuria, melena/rectal bleeding MD elicited complaint: abdominal pain Onset (ago): day(s) Related Data Home Medications Medication Instructions Recorded Confirmed furosemide 20 mg tablet 20 mg PO DAILY 07/14/22 07/14/22 insulin glargine 100 unit/mL (3 20 unit subcut QPM 07/14/22 07/14/22 mL) subcutaneous pen (Lantus Solostar U-100 Insulin) lactulose 10 gram/15 mL oral 15 ml PO QID 07/14/22 07/14/22 solution nystatin 100,000 unit/gram topical 1 appl topical DAILY 07/14/22 07/14/22 powder Previous Rx's Medication Instructions Recorded midodrine 5 mg tablet 5 mg PO TID #90 tabs 07/24/22 omeprazole 40 mg capsule,delayed 40 mg PO BID@0630,1630 #60 caps 07/24/22 release pregabalin 25 mg capsule (Lyrica) 25 mg PO BID #60 caps 07/24/22 rifaximin 550 mg tablet (Xifaxan) 550 mg PO TID #90 tabs 07/24/22 spironolactone 25 mg tablet 12.5 mg PO DAILY #30 tabs 07/24/22 Allergies Allergy/AdvReac Type Severity Reaction Status Date / Time No Known Allergies Allergy Verified 07/19/21 14:20 [No Known Allergies*] Review of Systems Review of Systems Constitutional: No Fever, No Chills, No Fatigue, No Malaise ENT/Mouth: No Ear Pain, No Nasal Congestion, No sore throat, No Rhinorrhea, No Swallowing Difficulty Eyes: No Eye Pain, No Swelling, No Redness, No Vision Changes Cardiovascular: No Chest Pain, No SOB, No Dyspnea on Exertion, No Orthopnea, No Edema, No Palpitations Respiratory: No Cough, No Sputum, No Dyspnea Gastrointestinal: No Nausea, No Vomiting, No Diarrhea, No Constipation, + Abdominal pain/bloating Genitourinary: No irregular bleeding, No Dysuria, No Urinary Frequency, No Hematuria, No Flank Pain, No Urinary Flow Changes, No Hesitancy Musculoskeletal: No joint pain, No Myalgias, No Joint Swelling Skin: No Skin Lesions, No rash Neuro: No Weakness, No Numbness, No Paresthesias, No Loss of Consciousness, + lightheadedness, No Headache Yes all other systems are reviewed and are negative Constitutional: Reports as per [facility] Past Medical History Attestation statement: The following information was validated with the patient. Medical History Cirrhosis Cirrhosis Diabetes (~01/31/21) Diabetes mellitus with hyperglycemia Diabetes type 2, controlled Gallstones Hepatic failure due to alcoholism HTN (hypertension) Kidney, perinephric abscess Portal hypertension SBP (spontaneous bacterial peritonitis) UTI (urinary tract infection) UTI (urinary tract infection) UTI due to extended-spectrum beta lactamase (ESBL) producing Escherichia coli Varices of other sites Family History Family History Mother No problems noted. Father No problems noted. Social History Social History Household Members: Children Household Members Other:: Patient's son Housing: House Do you presently have visiting nurse or other home services: No Alcohol intake: never Patient Tobacco Use Status: Never used Tobacco Smoked in Last 30 Days: No e-Cigarette/Vaping Use: Never Used Second Hand Smoke Exposure: No Use of substances other than those prescribed or required for medical reasons: No Advance Directives: Yes Advance Directives on File: Yes Advance Directives Date on File: 06/15/21 service: No Current occupational status: unemployed and disabled Cognitive needs: No Hearing needs: No Vision needs: No Physical Exam ED Vital Signs: Vital Signs - 24 hr 08/15/22 13:09 08/15/22 14:41 08/15/22 16:00 Temperature 98.5 F 98.0 F 98.1 F Pulse Rate 90 87 94 Respiratory Rate 20 16 16 Blood Pressure 147/75 H 112/75 108/79 Pulse Oximetry 98 97 98 Oxygen Delivery Method Room Air Room Air Room Air 08/15/22 16:50 08/15/22 16:52 08/15/22 17:01 Temperature 98.0 F 98.0 F 98.0 F Pulse Rate 88 84 85 Respiratory Rate 16 16 16 Blood Pressure 126/71 116/68 119/74 Pulse Oximetry 96 100 100 Oxygen Delivery Method Room Air Room Air Room Air 08/15/22 17:05 08/15/22 17:10 08/15/22 17:14 Temperature 98.0 F 98.0 F 98.2 F Pulse Rate 86 85 86 Respiratory Rate 16 16 16 Blood Pressure 126/75 126/71 125/74 Pulse Oximetry 98 97 98 Oxygen Delivery Method Room Air Room Air Room Air 08/15/22 17:23 Temperature 98.0 F Pulse Rate 87 Respiratory Rate 16 Blood Pressure 128/69 Pulse Oximetry 98 Oxygen Delivery Method Room Air BMI result Body Mass Index 29.1 Const General: cooperative and no acute distress Orientation/consciousness: patient oriented x3 Limitations: no limitations HENMT Head: Yes normal to inspection and Yes atraumatic Ears: hearing grossly normal bilaterally General nose exam: Normal external nose present Face and sinus: Yes normal facial exam Eyes General: appearance normal, both eyes and all related structures EOM: EOMs intact bilaterally Neck Neck: Yes normal visual inspection and Yes no meningeal signs Resp Effort & Inspection: normal respiratory effort and no respiratory distress Auscultation: clear to auscultation bilaterally Cardio Rate: regular rate Heart sounds: S1 normal heart sound present and S2 normal heart sound present GI Inspection: Yes normal to inspection and Yes distended Palpation (GI): Soft to palpation, Tenderness to palpation present (GI) (Diffusely) with no rebound tenderness, no guarding and not rigid Skin Rashes: no rashes Wounds: no wounds Neuro General: patient oriented x3, tone normal and no meningeal signs Gait exam (Neuro): Normal gait present Extrem Other: + bilateral pitting edema noted General: Yes normal to inspection Procedures Paracentesis Local Anesthetic: lidocaine 1% Amount of anesthesia used (mL): 20 Fluid: clear Post Procedure Exam: awake, alert, normal BP, normal HR and normal SpO2 Patient Tolerated Procedure: well Complications: none Course Course Course Narrative: -1400--acute on chronic leukopenia. H&H at patient's baseline. -1427--glucose elevated at 419, no anion gap. Chronic elevated bilirubin. BNP chronically elevated. Albumin low at 2.5 chronically > will replete CT abdomen pelvis wo IV con IMPRESSION: 1.? Cirrhosis with large volume ascites and diffuse body wall edema/anasarca. 2.? Trace bilateral pleural fluid. 3.? Cholelithiasis. 4.? Unchanged 4.7 cm right ovarian dermoid. >> IR unable to do paracentesis today will have to happen tomorrow. Will eval to perform paracentesis in the ED -Drained 6L of peritoneal fluid in the ED, fluid studies sent down. procedure performed by Dr. Lopez. Plan to admit for further management Medical Decision Making Medical Decision Making [facility] Narrative: 56-year-old female with past medical history of liver cirrhosis, diabetes, HTN, recent admission to our facility for toxic metabolic encephalopathy due to DM with hypoglycemia in the setting of cryptogenic liver cirrhosis, new onset seizure and GI bleed requiring transfusion, presenting to the ED today complaining of increased abdominal bloating, pain, lightheadedness and nausea x2 days. On exam vital signs stable, abdomen distended with notable ascites, diffusely tender, no rebound or guarding, soft, + bilateral pedal edema. Concern for recurrent ascites vs SBP although patient s/p 3 recent negative paracentesis is with similar presentation vs anasarca/CHF. Rule out other infectious etiology although lower suspicion for diverticulitis/appendicitis or CHF. Lower suspicion for GI bleed at this time Plan: Labs, UA, CT PE, abdomen ultrasound, paracentesis, peritoneal studies, pain management, re-evaluation Low suspicion for sepsis this time Differential Diagnosis Differential Diagnoses: The differential diagnosis associated with the presentation includes As above Admission/Observation Consideration of admission/observation: Escalation of care including admission/observation considered Consult Healthcare Provider Management of the patient was discussed with: [employer] Specialist Supervisor (IR) Lab Data [facility] Lab Attestation statement: I reviewed the patient's lab results. Result Diagrams: 08/15/22 13:42 08/15/22 13:42 Labs: Lab Results 08/15/22 08/15/22 12 Range/Units 13:42 13:42 13:42 WBC 2.9 L (4.8-10.8) X10*3/uL RBC 3.48 L (4.20-5.50) X10*6/uL Hgb 10.7 L (12.0-16.0) g/dl Hct 33.1 L (37.0-47.0) % MCV 95.1 (80.0-98.0) fL MCH 30.7 (27.0-33.0) pg MCHC 32.3 (31.0-35.0) g/dl RDW 16.4 H (11.0-16.0) % Plt Count 132 L D (160-400) X10*3/uL MPV 10.3 (9.4-12.3) fL Immature Gran % (Auto) 0.3 (0.0-0.4) % Neut % (Auto) 61.7 (45-73) % Lymph % (Auto) 23.9 (20-40) % [place] % (Auto) 11.3 H (2-11) % Eos % (Auto) 1.4 (0-4) % Baso % (Auto) 1.4 (0-2) % Lymph # (Auto) 0.7 L (1.2-4.9) X10*3/uL [place] # (Auto) 0.3 (0.1-1.2) X10*3/uL Eos # (Auto) 0.0 (0.0-0.4) X10*3/uL Baso # (Auto) 0.0 (0.0-0.2) X10*3/uL Abs Immat Gran (auto) 0.01 (0.00-0.03) X10*3/uL Absolute Neuts (auto) 1.8 L (2.0-8.3) x10*3/uL Absolute Nucleated RBC 0.000 (0.0-0.012) X10*3/uL Nucleated RBC % (auto) 0.0 (0.0-0.2) /100WBC PT (10.0-13.1) SEC INR (0.9-1.1) APTT (26.0-36.4) SEC Sodium 134 L (135-145) mmol/L Potassium 4.2 (3.3-5.1) mmol/L Chloride 99 (96-108) mmol/L Carbon Dioxide 30 H (22-29) mmol/L Anion Gap 9 L (12-20) BUN 11 (9-16) mg/dL Creatinine 1.01 (0.5-1.4) mg/dL Estim Creat Clear Calc 63.2 Estimated GFR 56 Random Glucose 419 H* (60-115) mg/dL Lactic Acid (0.5-2.0) mmol/L Calcium 8.3 L D (8.4-10.2) mg/dL Magnesium 1.6 (1.6-2.6) mg/dL Total Bilirubin 1.3 H (0.0-1.0) mg/dL Direct Bilirubin 0.6 H (0.0-0.5) mg/dL AST 26 (5-31) U/L ALT 16 (0-31) U/L Alkaline Phosphatase 178 H (39-117) U/L Troponin I High Sens < 3.5 (<3.5-17.0) ng/L B-Natriuretic Peptide (<100) pg/mL Total Protein 6.5 (6.5-8.0) g/dL Albumin 2.5 L (3.5-5.0) g/dL Lipase 15 (8-78) U/L Peritoneal WBC X10*3/uL Peritoneal RBC X10*6/uL Periton Lymphocytes % Peritoneal Monocytes % Peritoneal Other Cells % Acetone, Qual Negative (Negative) Influenza Type A (PCR) (Negative) Influenza Type B (PCR) (Negative) RSV RNA Qual (PCR) (Negative) SARS-CoV-2 RNA (RT-PCR) (Negative) 08/15/22 08/15/22 08/15/22 Range/Units 13:42 13:42 13:42 WBC (4.8-10.8) X10*3/uL RBC (4.20-5.50) X10*6/uL Hgb (12.0-16.0) g/dl Hct (37.0-47.0) % MCV (80.0-98.0) fL MCH (27.0-33.0) pg MCHC (31.0-35.0) g/dl RDW (11.0-16.0) % Plt Count (160-400) X10*3/uL MPV (9.4-12.3) fL Immature Gran % (Auto) (0.0-0.4) % Neut % (Auto) (45-73) % Lymph % (Auto) (20-40) % [place] % (Auto) (2-11) % Eos % (Auto) (0-4) % Baso % (Auto) (0-2) % Lymph # (Auto) (1.2-4.9) X10*3/uL [place] # (Auto) (0.1-1.2) X10*3/uL Eos # (Auto) (0.0-0.4) X10*3/uL Baso # (Auto) (0.0-0.2) X10*3/uL Abs Immat Gran (auto) (0.00-0.03) X10*3/uL Absolute Neuts (auto) (2.0-8.3) x10*3/uL Absolute Nucleated RBC (0.0-0.012) X10*3/uL Nucleated RBC % (auto) (0.0-0.2) /100WBC PT 14.4 H (10.0-13.1) SEC INR 1.2 H (0.9-1.1) APTT 32.0 (26.0-36.4) SEC Sodium (135-145) mmol/L Potassium (3.3-5.1) mmol/L Chloride (96-108) mmol/L Carbon Dioxide (22-29) mmol/L Anion Gap (12-20) BUN (9-16) mg/dL Creatinine (0.5-1.4) mg/dL Estim Creat Clear Calc Estimated GFR Random Glucose (60-115) mg/dL Lactic Acid 1.8 (0.5-2.0) mmol/L Calcium (8.4-10.2) mg/dL Magnesium (1.6-2.6) mg/dL Total Bilirubin (0.0-1.0) mg/dL Direct Bilirubin (0.0-0.5) mg/dL AST (5-31) U/L ALT (0-31) U/L Alkaline Phosphatase (39-117) U/L Troponin I High Sens (<3.5-17.0) ng/L B-Natriuretic Peptide 103 H (<100) pg/mL Total Protein (6.5-8.0) g/dL Albumin (3.5-5.0) g/dL Lipase (8-78) U/L Peritoneal WBC X10*3/uL Peritoneal RBC X10*6/uL Periton Lymphocytes % Peritoneal Monocytes % Peritoneal Other Cells % Acetone, Qual (Negative) Influenza Type A (PCR) (Negative) Influenza Type B (PCR) (Negative) RSV RNA Qual (PCR) (Negative) SARS-CoV-2 RNA (RT-PCR) (Negative) 08/15/22 08/15/22 Range/Units 13:42 17:02 WBC (4.8-10.8) X10*3/uL RBC (4.20-5.50) X10*6/uL Hgb (12.0-16.0) g/dl Hct (37.0-47.0) % MCV (80.0-98.0) fL MCH (27.0-33.0) pg MCHC (31.0-35.0) g/dl RDW (11.0-16.0) % Plt Count (160-400) X10*3/uL MPV (9.4-12.3) fL Immature Gran % (Auto) (0.0-0.4) % Neut % (Auto) (45-73) % Lymph % (Auto) (20-40) % [place] % (Auto) (2-11) % Eos % (Auto) (0-4) % Baso % (Auto) (0-2) % Lymph # (Auto) (1.2-4.9) X10*3/uL [place] # (Auto) (0.1-1.2) X10*3/uL Eos # (Auto) (0.0-0.4) X10*3/uL Baso # (Auto) (0.0-0.2) X10*3/uL Abs Immat Gran (auto) (0.00-0.03) X10*3/uL Absolute Neuts (auto) (2.0-8.3) x10*3/uL Absolute Nucleated RBC (0.0-0.012) X10*3/uL Nucleated RBC % (auto) (0.0-0.2) /100WBC PT (10.0-13.1) SEC INR (0.9-1.1) APTT (26.0-36.4) SEC Sodium (135-145) mmol/L Potassium (3.3-5.1) mmol/L Chloride (96-108) mmol/L Carbon Dioxide (22-29) mmol/L Anion Gap (12-20) BUN (9-16) mg/dL Creatinine (0.5-1.4) mg/dL Estim Creat Clear Calc Estimated GFR Random Glucose (60-115) mg/dL Lactic Acid (0.5-2.0) mmol/L Calcium (8.4-10.2) mg/dL Magnesium (1.6-2.6) mg/dL Total Bilirubin (0.0-1.0) mg/dL Direct Bilirubin (0.0-0.5) mg/dL AST (5-31) U/L ALT (0-31) U/L Alkaline Phosphatase (39-117) U/L Troponin I High Sens (<3.5-17.0) ng/L B-Natriuretic Peptide (<100) pg/mL Total Protein (6.5-8.0) g/dL Albumin (3.5-5.0) g/dL Lipase (8-78) U/L Peritoneal WBC 0.037 X10*3/uL Peritoneal RBC < 0.002 X10*6/uL Periton Lymphocytes 27 % Peritoneal Monocytes 67 % Peritoneal Other Cells 6 % Acetone, Qual (Negative) Influenza Type A (PCR) NEGATIVE (Negative) Influenza Type B (PCR) NEGATIVE (Negative) RSV RNA Qual (PCR) NEGATIVE (Negative) SARS-CoV-2 RNA (RT-PCR) NEGATIVE (Negative) Independent Interpretation I performed an independent interpretation of an: EKG Interpretation: EKG normal sinus rhythm at a rate of 90. QTC 464. No STEMI/nonischemic Radiology Impression Discussion of test interpretation with radiology: I have reviewed the radiologist's reading. External Record Review External record reviewed: Inpatient record Prescription Management I considered prescription management with: Pain Medication Medications Administered Discontinued Medications Generic Name Dose Route Start Last Admin Trade Name Freq PRN Reason Stop Dose Admin Furosemide 40 mg 08/15/22 16:13 08/15/22 16:55 Furosemide 40 Mg/4 Ml Vial IVPUSH 08/15/22 16:14 40 mg STAT STA Administration Protocol Sodium Chloride 500 mls @ 999 mls/hr 08/15/22 14:30 08/15/22 16:56 Ns IV 08/15/22 15:00 Infused .Q31M ODALYS Infusion Albumin Human 100 mls @ 100 mls/hr 08/15/22 14:28 08/15/22 15:11 Kedbumin 25 % IV 08/15/22 15:27 Not Given ONCE ONE Albumin Human 100 mls @ 100 mls/hr 08/15/22 15:15 08/15/22 16:56 Kedbumin 25 % IV 08/15/22 16:14 Infused ONCE ONE Infusion Insulin Human Regular 5 unit 08/15/22 14:29 08/15/22 15:14 Insulin Regular, Human 100 Unit/Ml 3 Ml Vial IVPUSH 08/15/22 14:30 5 unit ONCE ONE Administration Morphine Sulfate 2 mg 08/15/22 13:23 08/15/22 14:06 Morphine Sulfate 2 Mg/Ml Cartridge IVPUSH 08/15/22 13:24 2 mg ONCE ONE Administration Protocol Ondansetron HCl 4 mg 08/15/22 13:15 08/15/22 14:06 Ondansetron Hcl 4 Mg/2 Ml Vial IVPUSH 08/15/22 13:16 4 mg ONCE ONE Administration Discharge Plan Discharge Clinical Impression: Ascites, Anasarca Patient Disposition: Admitted As Inpatient
[2022-08-15] MEDS: ondansetron HCL 4 MG/2 ML VIAL IVPUSH (14:06)
[2022-08-15] MEDS: Morphine Sulfate 2 MG/ML CARTRIDGE IVPUSH ×2 (14:06→18:17)
[2022-08-15 14:08] LABS: Lactic Acid 1.8 mmol/L (0.5-2.0)
--- NOTE | 2022-08-15 14:09 | PC.NURSE ---
abd pain and distention/ascites, medicated as ordered for pain and nausea
[2022-08-15 14:14] LABS: B Type Natriuretic Peptide 103 pg/mL (<100)
[2022-08-15 14:25] LABS: Alanine Aminotransferase 16 U/L (0-31); Albumin Level 2.5 g/dL (3.5-5.0); Alkaline Phosphatase 178 U/L (39-117); Anion Gap 9 (12-20); Aspartate Amino Transferase 26 U/L (5-31); Bilirubin Direct 0.6 mg/dL (0.0-0.5); Bilirubin Total 1.3 mg/dL (0.0-1.0); Blood Urea Nitrogen 11 mg/dL (9-16); Calcium 8.3 mg/dL (8.4-10.2); Carbon Dioxide 30 mmol/L (22-29); Chloride 99 mmol/L (96-108); Creatinine Clr Calc Pharmacy 63.2; Estimated Glomerular Filt Rate 56; Glucose Random 419 mg/dL (60-115); Influenza A PCR NEGATIVE (Negative); Influenza B PCR NEGATIVE (Negative); Lipase 15 U/L (8-78); Magnesium 1.6 mg/dL (1.6-2.6); Potassium 4.2 mmol/L (3.3-5.1); Resp Syncy Virus RNA Qual PCR NEGATIVE (Negative); SARS COV2 PCR INHOUSE NEGATIVE (Negative); Sodium 134 mmol/L (135-145); Total Protein 6.5 g/dL (6.5-8.0)
[2022-08-15 14:52] LABS: Troponin-I High Sensitivity < 3.5 ng/L (<3.5-17.0)
[2022-08-15] MEDS: Insulin Regular, Human 100 UNIT/ML 3 ML VIAL IVPUSH (15:14)
[2022-08-15] MEDS: Albumin Human 25 % 100 ML IV (15:18)
[2022-08-15 15:23] LABS: Acetone, serum QL Negative (Negative)
[2022-08-15] MEDS: 0.9 % Sodium Chloride 500 ML 999 ML IV (15:24)
[2022-08-15] MEDS: Furosemide 40 MG/4 ML VIAL IVPUSH (16:55)
[2022-08-15 17:18] LABS: MN% 96.8 %; PMN% 3.2 %; WBC Peritoneal Fluid 0.037 X10*3/uL
--- NOTE | 2022-08-15 17:27 | MHC.EDTECH ---
THIS PCT SET UP AND ASSIST PROVIDER WITH PT PARACENTESIS ,6 BOTTLES OF FLUID COLLECTED ,VITALS SIGN WAS TAKEN AFTER EACH BOTTLE WAS COLLECTED ,FLUID SAMPLE WAS SENT TO THE LAB .
[2022-08-15 17:33] LABS: RBC Peritoneal Fluid < 0.002 X10*6/uL
[2022-08-15 17:58] LABS: BF Shift QC OK YES; Lymphocyte Peritoneal Fl 27 %; Monocytes Peritoneal Fl 67 %; Other Peritioneal Fl 6 %
--- NOTE | 2022-08-15 18:50 | P.HPHOSP_ITS ---
History of Present Illness Date of Service: 08/15/22 Chief Complaint: abdominal pain, anasarca 56-year-old female with past medical history of liver cirrhosis, diabetes, HTN, recent admission to our facility for toxic metabolic encephalopathy due to hypoglycemia in the setting of cryptogenic liver cirrhosis, new onset seizure and GI bleed requiring transfusion and ICU level of care at that time. She comes in today to the ED incremental abdominal pain, bloating, lightheadedness and nausea x2 days.? She denies fever, seizure. She was scheduled for therapeutic paracentesis last saturday but she cancelled this according to IR. Her abdominal was quite distentended on presentation along with marked swelling of the legs. She has had a 6 liter ascietes removal via paracentesis, she's still complaning of pain. Ascietes fluid analysis is Not consistent with SBP Review of Systems Review of Systems: abdominal pain, nasusea, abdominal bloating, no sob, +dizziness Yes all other systems are reviewed and are negative [facility] Medical History Cirrhosis Cirrhosis Diabetes (~01/31/21) Diabetes mellitus with hyperglycemia Diabetes type 2, controlled Gallstones Hepatic failure due to alcoholism HTN (hypertension) Kidney, perinephric abscess Portal hypertension SBP (spontaneous bacterial peritonitis) UTI (urinary tract infection) UTI (urinary tract infection) UTI due to extended-spectrum beta lactamase (ESBL) producing Escherichia coli Varices of other sites Family History Mother No problems noted. Father No problems noted. Social History Household Members: Children Household Members Other:: Patient's son Housing: House Do you presently have visiting nurse or other home services: No Alcohol intake: never Patient Tobacco Use Status: Never used Tobacco Smoked in Last 30 Days: No e-Cigarette/Vaping Use: Never Used Second Hand Smoke Exposure: No Use of substances other than those prescribed or required for medical reasons: No Advance Directives: No Advance Directives Date on File: 06/15/21 service: No Current occupational status: unemployed and disabled Cognitive needs: No Hearing needs: No Vision needs: No Meds Allergies Allergy/AdvReac Type Severity Reaction Status Date / Time No Known Allergies Allergy Verified 07/19/21 14:20 [No Known Allergies*] Home Medications Medication Instructions Recorded Confirmed Last Taken Type insulin glargine 100 unit/mL (3 20 unit subcut DAILY 07/14/22 08/15/22 08/14/22 History mL) subcutaneous pen (Lantus Solostar U-100 Insulin) carvedilol 3.125 mg tablet 1 tab PO BID 08/15/22 08/15/22 Unknown History insulin aspart U-100 100 unit/mL See Protocol subcut TIDAC 08/15/22 08/15/22 Unknown History (3 mL) subcutaneous pen (Novolog FlexPen U-100 Insulin aspart) Physical Exam Vital Signs and Narrative: Vital Signs: Last Vital Signs Temp 98.0 F 08/15/22 17:23 Pulse 87 08/15/22 17:23 Resp 16 08/15/22 17:23 BP 128/69 08/15/22 17:23 Pulse Ox 98 08/15/22 17:23 O2 Del Method 08/15/22 17:23 BMI result Body Mass Index 29.1 Const: Other: Constitutional: Alert, in no distress, Mental Status: Oriented to person, place and time. Eyes: Pupils are equal, round and reactive to light. Ear, Nose and Throat: Oropharynx clear, mucous membranes moist. Ears and nose without eformities. Trachea midline. Respiratory: Clear to auscultation. No wheezing, rales or rhonchi. Cardiovascular: S1 S2 regular. No murmurs, rubs or gallops. Gastrointestinal: Abdomen soft, vague tenderness, mild distention. Normal bowel sounds.? Neurologic: Cranial nerves II-XII grossly intact. No focal neurological deficits. Moves all extremities spontaneously.? Skin: No rashes or lesions.? Musculoskeletal: No cyanosis or clubbing. Psychiatric: Normal mood and affect? Results Labs 08/18/22 06:17 08/22/22 06:26 Labs: Laboratory Results - last 24 hr 08/15/22 08/15/22 08/15/22 13:42 13:42 13:42 MCV 95.1 MCH 30.7 MCHC 32.3 RDW 16.4 H Plt Count 132 L D MPV 10.3 Immature Gran % (Auto) 0.3 Neut % (Auto) 61.7 Lymph % (Auto) 23.9 [place] % (Auto) 11.3 H Eos % (Auto) 1.4 Baso % (Auto) 1.4 Lymph # (Auto) 0.7 L [place] # (Auto) 0.3 Eos # (Auto) 0.0 Baso # (Auto) 0.0 Abs Immat Gran (auto) 0.01 Absolute Neuts (auto) 1.8 L Absolute Nucleated RBC 0.000 Nucleated RBC % (auto) 0.0 PT INR APTT Anion Gap 9 L Estim Creat Clear Calc 63.2 Estimated GFR 56 Random Glucose 419 H* Lactic Acid Calcium 8.3 L D Magnesium 1.6 Total Bilirubin 1.3 H Direct Bilirubin 0.6 H AST 26 ALT 16 Alkaline Phosphatase 178 H Troponin I High Sens < 3.5 B-Natriuretic Peptide Total Protein 6.5 Albumin 2.5 L Lipase 15 Peritoneal WBC Peritoneal RBC Periton Lymphocytes Peritoneal Monocytes Peritoneal Other Cells Acetone, Qual Negative Influenza Type A (PCR) Influenza Type B (PCR) RSV RNA Qual (PCR) SARS-CoV-2 RNA (RT-PCR) 08/15/22 08/15/22 08/15/22 13:42 13:42 13:42 MCV MCH MCHC RDW Plt Count MPV Immature Gran % (Auto) Neut % (Auto) Lymph % (Auto) [place] % (Auto) Eos % (Auto) Baso % (Auto) Lymph # (Auto) [place] # (Auto) Eos # (Auto) Baso # (Auto) Abs Immat Gran (auto) Absolute Neuts (auto) Absolute Nucleated RBC Nucleated RBC % (auto) PT 14.4 H INR 1.2 H APTT 32.0 Anion Gap Estim Creat Clear Calc Estimated GFR Random Glucose Lactic Acid 1.8 Calcium Magnesium Total Bilirubin Direct Bilirubin AST ALT Alkaline Phosphatase Troponin I High Sens B-Natriuretic Peptide 103 H Total Protein Albumin Lipase Peritoneal WBC Peritoneal RBC Periton Lymphocytes Peritoneal Monocytes Peritoneal Other Cells Acetone, Qual Influenza Type A (PCR) Influenza Type B (PCR) RSV RNA Qual (PCR) SARS-CoV-2 RNA (RT-PCR) 08/15/22 08/15/22 13:42 17:02 MCV MCH MCHC RDW Plt Count MPV Immature Gran % (Auto) Neut % (Auto) Lymph % (Auto) [place] % (Auto) Eos % (Auto) Baso % (Auto) Lymph # (Auto) [place] # (Auto) Eos # (Auto) Baso # (Auto) Abs Immat Gran (auto) Absolute Neuts (auto) Absolute Nucleated RBC Nucleated RBC % (auto) PT INR APTT Anion Gap Estim Creat Clear Calc Estimated GFR Random Glucose Lactic Acid Calcium Magnesium Total Bilirubin Direct Bilirubin AST ALT Alkaline Phosphatase Troponin I High Sens B-Natriuretic Peptide Total Protein Albumin Lipase Peritoneal WBC 0.037 Peritoneal RBC < 0.002 Periton Lymphocytes 27 Peritoneal Monocytes 67 Peritoneal Other Cells 6 Acetone, Qual Influenza Type A (PCR) NEGATIVE Influenza Type B (PCR) NEGATIVE RSV RNA Qual (PCR) NEGATIVE SARS-CoV-2 RNA (RT-PCR) NEGATIVE Imaging Radiologist's Impressions: Impressions Abdomen/Pelvis CT 08/15/22 14:23 IMPRESSION: 1. Cirrhosis with large volume ascites and diffuse body wall edema/anasarca. 2. Trace bilateral pleural fluid. 3. Cholelithiasis. 4. Unchanged 4.7 cm right ovarian dermoid. Assessment and Plan (1) Ascites: Status: Acute (2) Anasarca: Status: Acute Plan 56yo F with cirrhosis here with anasarca after missing scheduled paracentesis a week ago--recent hospitalization for hypoglycemia seizure, encephalopathy, gi bleeed # ascites due to cirrhosis - s/p paracenteses of 6L cell count not consistent with SBP -medical management with lasix + aldactone -Repeat Paracentesis PRN #Abdominal pain--no evidence of SBP #IDDM--resume home insulin regimen # Pancytopenia--d/t liver cirrhosis # coagulopathy due to cirrhosis, INR is 1.2 # VTE ppx: SCDs Time Spent With Patient Time: Total time managing care of this patient today ____ minutes. Quality Stroke Does the patient have a stroke diagnosis?: No VTE Prior VTE?: No VTE Risk Level:: Medical - low VTE Device Contraindication: Treatment Not Indicated VTE Drug Contraindication: Treatment Not Indicated
--- NOTE | 2022-08-15 18:56 | PHA.MEDREC ---
Pharmacy Consult ? Medication Reconciliation Pharmacy has completed the medication reconciliation. Pt unsure if she still takes coreg
--- NOTE | 2022-08-15 19:35 | MHC.EDTECH ---
pt was incontinent of urine ,care given and bedding change .
[2022-08-15] MEDS: Furosemide 20 MG/2 ML VIAL IVPUSH (19:46)
[2022-08-15] MEDS: Morphine Sulfate 4 MG/ML CARTRIDGE 2 MG IVPUSH (19:50)
[2022-08-15] MEDS: carvediloL 3.125 MG TABLET PO (21:21)
[2022-08-15] MEDS: Pregabalin 25 MG CAPSULE PO (21:21)
--- NOTE | 2022-08-15 21:21 | PC.NURSE ---
Addendum entered by Joy Summers RN 08/16/22 07:03: report given to CHRIS Contreras Original Note: report received form CHRIS Green pt is alert and oriented resting in bed no signs of acute distress notice breathing equally unlabored
[2022-08-15 23:37] LABS: Albumin Peritoneal Fluid 0.5 GM/DL; Glucose Peritoneal Fluid 376 MG/DL; LDH Peritoneal Fluid 43 U/L; Total Protein Peritoneal Fluid 1.2 GM/DL
[2022-08-16] MEDS: Morphine Sulfate 4 MG/ML CARTRIDGE 2 MG IVPUSH ×2 (02:20→07:56)
[2022-08-16] MEDS: ondansetron HCL 4 MG/2 ML VIAL IVPUSH (02:34)
[2022-08-16] MEDS: Melatonin 3 MG TABLET 6 MG PO (02:34)
[2022-08-16] MEDS: Omeprazole 40 MG CAPSULE.DR PO ×2 (06:05→16:23)
[2022-08-16 06:06] VITALS: BP 93/58; PULSE 84; RESP 18; TEMP 36.4; O2SAT 94
[2022-08-16 06:57] LABS: Hemoglobin 9.6 g/dl (12.0-16.0); Mean Corpuscular Hemoglobin 30.9 pg (27.0-33.0); Mean Corpuscular Volume 96.5 fL (80.0-98.0); Mean Platelet Volume 9.9 fL (9.4-12.3); Platelet Count 103 X10*3/uL (160-400); Red Blood Count 3.11 X10*6/uL (4.20-5.50); Red Cell Distribution Width 16.1 % (11.0-16.0)
[2022-08-16 07:06] LABS: White Blood Count 2.3 X10*3/uL (4.8-10.8)
[2022-08-16 07:28] LABS: Anion Gap 8 (12-20); Blood Urea Nitrogen 10 mg/dL (9-16); Calcium 7.6 mg/dL (8.4-10.2); Carbon Dioxide 31 mmol/L (22-29); Chloride 103 mmol/L (96-108); Creatinine Clr Calc Pharmacy 68.6; Estimated Glomerular Filt Rate > 60; Glucose Random 293 mg/dL (60-115); Potassium 3.8 mmol/L (3.3-5.1); Sodium 138 mmol/L (135-145)
[2022-08-16] MEDS: Furosemide 20 MG/2 ML VIAL IVPUSH ×2 (07:56→16:23)
[2022-08-16] MEDS: Insulin Glargine,Hum.rec.anlog 100 UNIT/ML 10 ML VIAL 20 UNIT SUBCUT (07:57)
[2022-08-16] MEDS: Pregabalin 25 MG CAPSULE PO ×2 (07:58→21:28)
[2022-08-16] MEDS: carvediloL 3.125 MG TABLET PO ×2 (07:58→21:28)
[2022-08-16] MEDS: Midodrine HCl 5 MG TABLET PO ×2 (07:58→11:49)
[2022-08-16] MEDS: Spironolactone 25 MG TABLET 12.5 MG PO (07:58)
[2022-08-16 08:01] LABS: Glucose, Whole Blood 271 mg/dL (60-115)
--- NOTE | 2022-08-16 09:07 | MHC.CM.PN ---
IMM 08/16/22 DELIVERED AND PLACED IN CHART, EMR REVIEWED AND PT ADMITTED W/CIRRHOSIS, ANASARCA AND SYMPTOMATIC ASCITES, CM MET W/PT WHO REPORT SHE LIVES W/SON AND REPORTS HE ASSISTS HER WITH EVERYTHING, PT HAS A CANE AND WALKER FOR DME AND REPORTS SHE MAINLY USES WALKER, PT WAS D/C'D ON 07/24 W/COMFORT PLUS VNA AND REPORTS SHE IS STILL ACTIVE AND WOULD LIKE TO CONT W/COMFORT PLUS. PT VERIFIES PCP HENRY ORTIZ, PFIZER X2 AND HCP VERIFIED AND ON FILE FROM PREVIOUS VISIT. ANTIC D/C HOME W/RESUMP OF COMFORT PLUS VNA AND PT WILL CALL FAMILY TO ARRANGE TRANSPORT
[2022-08-16 09:52] VITALS: BP 92/57; PULSE 79; RESP 18; TEMP 36.7; O2SAT 99
[2022-08-16] MEDS: oxyCODONE HCl Immed Release 5 MG TABLET PO ×2 (11:49→16:24)
[2022-08-16] MEDS: Albumin Human 25 % 100 ML IV ×2 (13:17→19:24)
[2022-08-16] MEDS: Midodrine HCl 10 MG TABLET PO (16:23)
--- NOTE | 2022-08-16 16:30 | PC.NURSE ---
this RN in to check on patient, pt lethargic in bed, not answering any questions, placed pt on monitor, VSS but clear neuro changes. MD made aware and coming to see pt at bedside
--- NOTE | 2022-08-16 16:47 | P.PNIM_ITS ---
Subjective Subjective Date of Service: 08/16/22 Interval History: Seeni n follow up for cirrhosis, ascites Inteval history: Paracentesis yesterday draining 5.7L, no SBP. Reaccumulation of ascites. Pt reporting significant pain this morning. No N/V, requesting ryan Review of Systems Review of Systems: Yes all other systems are reviewed and are negative Physical Exam Vital Signs: Vital Signs: Last Vital Signs Temp 98.1 F 08/16/22 09:52 Pulse 79 08/16/22 09:52 Resp 18 08/16/22 09:52 BP 92/57 L 08/16/22 09:52 Pulse Ox 99 08/16/22 09:52 O2 Del Method 08/16/22 09:52 BMI result Body Mass Index 29.1 Constitutional - Awake and Alert, No apparent distress Eyes - PERRLA, EOMI Cardiovascular - S1S2, RRR, No edema Respiratory - Normal lung expansion, Normal respiratory effort, No respiratory distress, CTA bilaterally Gastrointestinal - Significnatly distended with +fluid wave, diffusely ttp no rebound; +BS Extremities - no calf tenderness bilaterally, no swelling Skin - Warm/Dry Neurological - Alert & oriented x3 Psychological - Appropriate affect Objective Data Active Medications Carvedilol (Carvedilol 3.125 Mg Tablet) 3.125 mg PO BID ODALYS; Protocol Last Admin: 08/16/22 07:58 Dose: 3.125 mg Documented By: LELO Dextrose (Dextrose 50 % 25 Gm/50 Ml Syringe) 25 gm IVPUSH Q15M PRN; Protocol PRN Reason: per Hypoglycemia Standing Ord. Furosemide (Furosemide 20 Mg/2 Ml Vial) 20 mg IVPUSH BID@0900,1800 [facility]; Protocol Last Admin: 08/16/22 16:23 Dose: 20 mg Documented By: LELO Comments: not given, acute patient change Glucose (Glucose Gel 15 Gm Gel..Gram.) 15 gm PO Q15M PRN; Protocol PRN Reason: per Hypoglycemia Standing Ord. Albumin Human (Kedbumin 25 %) 100 mls @ 100 mls/hr IV Q6H [facility] Stop: 08/16/22 19:59 Last Infusion: 08/16/22 13:37 Dose: 0 mls/hr Documented By: LELO Insulin Glargine (Insulin Glargine,Hum.Rec.Anlog 100 Unit/Ml 10 Ml Vial) 20 unit SUBCUT DAILY [facility] Last Admin: 08/16/22 07:57 Dose: 20 unit Documented By: LELO Insulin Human Lispro (Insulin Lispro 100 Unit/Ml 3 Ml Vial) 0 unit SUBCUT QIDACHS [facility]; Protocol Lactulose (Lactulose 20 Gm/30 Ml Solution) 30 gm PO ONCE ONE Stop: 08/16/22 16:41 Melatonin (Melatonin 3 Mg Tablet) 6 mg PO BEDTIME PRN PRN Reason: Insomnia Last Admin: 08/16/22 02:34 Dose: 6 mg Documented By: DEMETRIO-MATTHEWICL Midodrine (Midodrine Hcl 10 Mg Tablet) 10 mg PO TIDWM [facility] Last Admin: 08/16/22 16:23 Dose: 10 mg Documented By: DEMETRIO-ALLI Morphine Sulfate (Morphine Sulfate 4 Mg/Ml Cartridge) 2 mg IVPUSH Q4H PRN; Protocol PRN Reason: Pain, Severe (Pain Scale 7-10) Last Admin: 08/16/22 07:56 Dose: 2 mg Documented By: LELO Omeprazole (Omeprazole 40 Mg Capsule.) 40 mg PO BID@0630,1630 [facility] Last Admin: 08/16/22 16:23 Dose: 40 mg Documented By: LELO Ondansetron HCl (Ondansetron Hcl 4 Mg/2 Ml Vial) 4 mg IVPUSH Q8H PRN PRN Reason: Nausea and Vomiting Last Admin: 08/16/22 02:34 Dose: 4 mg Documented By: ROMEROICL Oxycodone HCl (Oxycodone Hcl Immed Release 5 Mg Tablet) 5 mg PO Q4H PRN PRN Reason: Pain, Moderate (Pain Scale 4-6 Last Admin: 08/16/22 16:24 Dose: 5 mg Documented By: LELO Pregabalin (Pregabalin 25 Mg Capsule) 25 mg PO BID [facility] Last Admin: 08/16/22 07:58 Dose: 25 mg Documented By: LELO Sodium Chloride (0.9 % Sodium Chloride Flush 3 Ml Syringe) 3 ml IVFLUSH QSHIFT [facility] Last Admin: 08/16/22 08:02 Dose: Not Given Documented By: LELO Non-Admin Reason: IV Running Spironolactone (Spironolactone 25 Mg Tablet) 12.5 mg PO DAILY [facility]; Protocol Last Admin: 08/16/22 07:58 Dose: 12.5 mg Documented By: LELO Labs CBC & Chem 7: 08/16/22 06:47 08/16/22 06:47 Labs: Laboratory Results - last 24 hr 08/15/22 08/15/22 08/16/22 17:02 17:02 06:47 MCV 96.5 MCH 30.9 MCHC 32.0 RDW 16.1 H Plt Count 103 L MPV 9.9 Absolute Nucleated RBC 0.000 Nucleated RBC % (auto) 0.0 Anion Gap Estim Creat Clear Calc Estimated GFR POC Glucose Random Glucose Calcium Peritoneal WBC 0.037 Peritoneal RBC < 0.002 Periton Lymphocytes 27 Peritoneal Monocytes 67 Peritoneal Other Cells 6 Peritoneal Tot Protein 1.2 Peritoneal Albumin 0.5 Peritoneal LDH 43 Peritoneal Glucose 376 08/16/22 08/16/22 06:47 07:58 MCV MCH MCHC RDW Plt Count MPV Absolute Nucleated RBC Nucleated RBC % (auto) Anion Gap 8 L Estim Creat Clear Calc 68.6 Estimated GFR > 60 POC Glucose 271 H Random Glucose 293 H Calcium 7.6 L D Peritoneal WBC Peritoneal RBC Periton Lymphocytes Peritoneal Monocytes Peritoneal Other Cells Peritoneal Tot Protein Peritoneal Albumin Peritoneal LDH Peritoneal Glucose Microbiology Microbiology Results: Microbiology 08/15/22 14:01 Blood Culture - Preliminary Blood - Venous No growth after 24 hours. 08/15/22 13:42 Blood Culture - Preliminary Blood - Venous No growth after 24 hours. 08/15/22 17:02 Gram Stain - Final Abdominal Fluid Routine Culture - Preliminary No growth to date. Anaerobic Culture - Preliminary No growth to date. Assessment and Plan (1) Seizure: Status: Acute Plan 56yo F with cirrhosis here with anasarca after missing scheduled paracentesis a week ago--recent hospitalization for hypoglycemia seizure, encephalopathy, gi bleeed # ascites due to cirrhosis - s/p? paracenteses of 6L? cell count not consistent with SBP -medical management with lasix + aldactone -reaccumulation large ascites noted on abdominal [place].. Plan for paracentesis tomorrow -Ammonia level ordered -Hep B/C ordered -Albumin 25% x2 -Follow coags -GI consulted -pain scale # insulin-dependent type 2 diabetes -POC glucose -diabetic diet -continue insulin glargine -Humulin sliding scale # coagulopathy secondary to cirrhosis -follow coags # hypotension secondary to cirrhosis -increase midodrine to 10 mg 3 times daily # chronic normocytic anemia related to chronic disease -H/H stable # pancytopenia secondary to cirrhosis DVT prophylaxis compression devices Full code Patient requires ongoing inpatient stay for management of cirrhosis with re accumulation of ascites requiring paracentesis Quality Stroke Does the patient have a stroke diagnosis?: No VTE Prior VTE?: No VTE Risk Level:: Medical - low VTE Device Contraindication: Treatment Not Indicated VTE Drug Contraindication: Treatment Not Indicated
[2022-08-16] MEDS: Insulin Lispro 100 UNIT/ML 3 ML VIAL SUBCUT ×2 (17:07→21:28)
[2022-08-16 17:32] VITALS: BP 99/56; PULSE 80; RESP 20; O2SAT 96
[2022-08-16 17:37] LABS: Glucose, Whole Blood 297 mg/dL (60-115)
[2022-08-16 17:40] LABS: Ammonia 37 umol/L (13-55)
[2022-08-16 20:11] VITALS: BP 114/72; PULSE 78; RESP 18
[2022-08-16 20:54] VITALS: BP 102/56; PULSE 77; RESP 18; TEMP 36.1; O2SAT 96
[2022-08-16 20:55] LABS: Glucose, Whole Blood 191 mg/dL (60-115)
[2022-08-16] MEDS: 0.9 % Sodium Chloride Flush 3 ML SYRINGE IVFLUSH (21:28)
[2022-08-17 04:00] VITALS: BP 105/56; PULSE 70; RESP 18; TEMP 36.4; O2SAT 96
[2022-08-17] MEDS: oxyCODONE HCl Immed Release 5 MG TABLET PO (05:03)
[2022-08-17] MEDS: Omeprazole 40 MG CAPSULE.DR PO ×2 (05:04→19:37)
[2022-08-17 06:37] LABS: INTERNATIONAL NORM RATIO 1.5 (0.9-1.1); Prothrombin Time 16.9 SEC (10.0-13.1)
[2022-08-17 06:40] LABS: Partial Thromboplastin Time 37.9 SEC (26.0-36.4)
[2022-08-17 06:51] LABS: Alanine Aminotransferase 8 U/L (0-31); Albumin Level 2.6 g/dL (3.5-5.0); Alkaline Phosphatase 78 U/L (39-117); Anion Gap 7 (12-20); Aspartate Amino Transferase 19 U/L (5-31); Bilirubin Total 1.1 mg/dL (0.0-1.0); Blood Urea Nitrogen 12 mg/dL (9-16); Calcium 7.9 mg/dL (8.4-10.2); Carbon Dioxide 32 mmol/L (22-29); Chloride 103 mmol/L (96-108); Creatinine Clr Calc Pharmacy 70.9; Estimated Glomerular Filt Rate > 60; Glucose Random 151 mg/dL (60-115); Potassium 3.7 mmol/L (3.3-5.1); Sodium 138 mmol/L (135-145); Total Protein 5.2 g/dL (6.5-8.0)
[2022-08-17 07:07] LABS: HBS Num1 0.39 mIU/mL (0-7.99); HBc Num1 0.25 S/CO (0.00-0.79); HBsAGNum1 0.33 S/CO (0.00-0.99); Hepatitis B Core Antibody Nonreactive (Nonreactive); Hepatitis B Surface Antigen Negative (Negative); ~HepC Num1 0.18 S/CO (0.00-0.79); ~Hepatitis B Surface Antibody NONREACTIVE (Nonreactive); ~Hepatitis C Antibody Nonreactive (Nonreactive)
[2022-08-17 07:26] LABS: Glucose, Whole Blood 156 mg/dL (60-115)
[2022-08-17 07:53] VITALS: BP 95/55; PULSE 69; RESP 17; TEMP 36.9; O2SAT 92
[2022-08-17] MEDS: 0.9 % Sodium Chloride Flush 3 ML SYRINGE IVFLUSH ×2 (09:13→19:36)
[2022-08-17] MEDS: Insulin Glargine,Hum.rec.anlog 100 UNIT/ML 10 ML VIAL 20 UNIT SUBCUT (09:13)
[2022-08-17] MEDS: Midodrine HCl 10 MG TABLET PO ×3 (09:13→19:37)
[2022-08-17] MEDS: Furosemide 20 MG/2 ML VIAL IVPUSH (09:13)
[2022-08-17] MEDS: carvediloL 3.125 MG TABLET PO (09:14)
[2022-08-17] MEDS: Pregabalin 25 MG CAPSULE PO (09:14)
[2022-08-17 10:35] VITALS: BP 109/59
[2022-08-17] MEDS: Spironolactone 25 MG TABLET 12.5 MG PO (10:36)
[2022-08-17 11:14] LABS: Glucose, Whole Blood 137 mg/dL (60-115)
[2022-08-17 11:45] LABS: Lactate Dehydrogenase 153 U/L (122-220)
--- NOTE | 2022-08-17 13:45 | MHC.CM.PN ---
PLAN IS FOR ANOTHER THORACENTESIS. PATIENT HERE OVER THE WEEKEND
--- NOTE | 2022-08-17 14:11 | P.PNIM_ITS ---
Subjective Subjective Date of Service: 08/17/22 Interval History: Seen and evaluated this morning Building up more fluids in her abdomen Reporting pain and tenderness upon exam No fever but has some chills Review of Systems Review of Systems: Yes all other systems are reviewed and are negative Physical Exam Vital Signs: Vital Signs: Last Vital Signs Temp 98.5 F 08/17/22 07:53 Pulse 69 08/17/22 07:53 Resp 17 08/17/22 07:53 BP 109/59 L 08/17/22 10:35 Pulse Ox 92 08/17/22 07:53 O2 Del Method 08/17/22 07:53 O2 Flow Rate 96 08/16/22 20:11 BMI result Body Mass Index 29.1 Const: Other: Constitutional: Alert, in no distress, Mental Status: Oriented to person, place and time. Eyes: Pupils are equal, round and reactive to light. Ear, Nose and Throat: Oropharynx clear, mucous membranes moist. Ears and nose without eformities. Trachea midline. Respiratory: Clear to auscultation. No wheezing, rales or rhonchi. Cardiovascular: S1 S2 regular. No murmurs, rubs or gallops. Gastrointestinal: Abdomen soft, vague tenderness all over, moderate distention. Decreased bowel sounds.? Neurologic: Cranial nerves II-XII grossly intact. No focal neurological deficits. Moves all extremities spontaneously.? Skin: No rashes or lesions.? Objective Data Active Medications Carvedilol (Carvedilol 3.125 Mg Tablet) 3.125 mg PO BID [facility]; Protocol Last Admin: 08/17/22 09:14 Dose: 3.125 mg Documented By: GALILEO Dextrose (Dextrose 50 % 25 Gm/50 Ml Syringe) 25 gm IVPUSH Q15M PRN; Protocol PRN Reason: per Hypoglycemia Standing Ord. Furosemide (Furosemide 20 Mg/2 Ml Vial) 20 mg IVPUSH BID@0900,1800 [facility]; P rotocol Last Admin: 08/17/22 09:13 Dose: 20 mg Documented By: GALILEO Glucose (Glucose Gel 15 Gm Gel..Gram.) 15 gm PO Q15M PRN; Protocol PRN Reason: per Hypoglycemia Standing Ord. Insulin Glargine (Insulin Glargine,Hum.Rec.Anlog 100 Unit/Ml 10 Ml Vial) 20 unit SUBCUT DAILY [facility] Last Admin: 08/17/22 09:13 Dose: 20 unit Documented By: GALILEO Insulin Human Lispro (Insulin Lispro 100 Unit/Ml 3 Ml Vial) 0 unit SUBCUT QIDACHS [facility]; Protocol Last Admin: 08/17/22 11:18 Dose: Not Given Documented By: GALILEO Non-Admin Reason: No Insulin Coverage Melatonin (Melatonin 3 Mg Tablet) 6 mg PO BEDTIME PRN PRN Reason: Insomnia Last Admin: 08/16/22 02:34 Dose: 6 mg Documented By: CHRISTA Midodrine (Midodrine Hcl 10 Mg Tablet) 10 mg PO TIDWM [facility] Last Admin: 08/17/22 13:17 Dose: 10 mg Documented By: GALILEO Morphine Sulfate (Morphine Sulfate 4 Mg/Ml Cartridge) 2 mg IVPUSH Q4H PRN; Protocol PRN Reason: Pain, Severe (Pain Scale 7-10) Last Admin: 08/16/22 07:56 Dose: 2 mg Documented By: LELO Omeprazole (Omeprazole 40 Mg Capsule.Dr) 40 mg PO BID@0630,1630 [facility] Last Admin: 08/17/22 05:04 Dose: 40 mg Documented By: MARLON Ondansetron HCl (Ondansetron Hcl 4 Mg/2 Ml Vial) 4 mg IVPUSH Q8H PRN PRN Reason: Nausea and Vomiting Last Admin: 08/16/22 02:34 Dose: 4 mg Documented By: CHRISTA Oxycodone HCl (Oxycodone Hcl Immed Release 5 Mg Tablet) 5 mg PO Q4H PRN PRN Reason: Pain, Moderate (Pain Scale 4-6 Last Admin: 08/17/22 05:03 Dose: 5 mg Documented By: MARLON Pregabalin (Pregabalin 25 Mg Capsule) 25 mg PO BID [facility] Last Admin: 08/17/22 09:14 Dose: 25 mg Documented By: GALILEO Sodium Chloride (0.9 % Sodium Chloride Flush 3 Ml Syringe) 3 ml IVFLUSH QSHIFT [facility] Last Admin: 08/17/22 09:13 Dose: 3 ml Documented By: GALILEO Spironolactone (Spironolactone 25 Mg Tablet) 25 mg PO DAILY [facility]; Protocol Labs CBC & Chem 7: 08/16/22 06:47 08/17/22 05:22 Labs: Laboratory Results - last 24 hr 08/16/22 08/16/22 08/16/22 13:42 16:46 17:02 PT INR APTT Anion Gap Estim Creat Clear Calc Estimated GFR POC Glucose 297 H Random Glucose Calcium Total Bilirubin AST ALT Alkaline Phosphatase Ammonia 37 Lactate Dehydrogenase Total Protein Albumin Hep Bs Antigen Negative Hep Bs Antibody NONREACTIVE Hep B Core Total Ab Nonreactive Hepatitis C Ab (EIA) Nonreactive 08/16/22 08/17/22 08/17/22 20:51 05:22 05:22 PT 16.9 H INR 1.5 H APTT 37.9 H Anion Gap 7 L Estim Creat Clear Calc 70.9 Estimated GFR > 60 POC Glucose 191 H Random Glucose 151 H Calcium 7.9 L Total Bilirubin 1.1 H AST 19 D ALT 8 Alkaline Phosphatase 78 D Ammonia Lactate Dehydrogenase 153 Total Protein 5.2 L Albumin 2.6 L D Hep Bs Antigen Hep Bs Antibody Hep B Core Total Ab Hepatitis C Ab (EIA) 08/17/22 08/17/22 07:21 11:09 PT INR APTT Anion Gap Estim Creat Clear Calc Estimated GFR POC Glucose 156 H 137 H Random Glucose Calcium Total Bilirubin AST ALT Alkaline Phosphatase Ammonia Lactate Dehydrogenase Total Protein Albumin Hep Bs Antigen Hep Bs Antibody Hep B Core Total Ab Hepatitis C Ab (EIA) Microbiology Microbiology Results: Microbiology 08/15/22 17:02 Gram Stain - Final Abdominal Fluid Routine Culture - Preliminary No growth to date. Anaerobic Culture - Preliminary No growth to date. 08/15/22 14:01 Blood Culture - Preliminary Blood - Venous No growth after 24 hours. 08/15/22 13:42 Blood Culture - Preliminary Blood - Venous No growth after 24 hours. Assessment and Plan (1) Ascites: Status: Acute (2) Anasarca: Status: Acute Plan 56yo F with cirrhosis here with anasarca after missing scheduled paracentesis a week ago--recent hospitalization for hypoglycemia seizure, encephalopathy, gi bleeed # ascites due to cirrhosis - s/p? paracenteses of 6L, to do another paracentesis Rule out SBP Continue lasix + aldactone Negative Hep B/C To give Albumin 25% x2 Pending GI consult # insulin-dependent type 2 diabetes diabetic diet continue insulin glargine Humulin sliding scale # coagulopathy secondary to cirrhosis follow coags # hypotension secondary to cirrhosis increase midodrine to 10 mg 3 times daily # chronic normocytic anemia related to chronic disease H/H stable # pancytopenia secondary to cirrhosis DVT prophylaxis compression devices Full code Patient requires ongoing inpatient stay for management of cirrhosis with reaccumulation of ascites requiring paracentesis Time Spent With Patient Time: Total time managing care of this patient today ____ minutes. Quality Stroke Does the patient have a stroke diagnosis?: No VTE Prior VTE?: No VTE Risk Level:: Medical - low VTE Device Contraindication: Treatment Not Indicated VTE Drug Contraindication: Treatment Not Indicated
[2022-08-17 15:29] VITALS: BP 100/60; PULSE 67; RESP 16; TEMP 36.5; O2SAT 98
--- NOTE | 2022-08-17 16:15 | HO.RADPN ---
RADIOLOGY Narrative Narrative: RLQ paracentesis using 5 fr catheter. Large volume clear yellow fluid removed. Specimen sent.
--- NOTE | 2022-08-17 16:58 | ECG_ITS ---
Test Reason : UNRESPONSIVE Blood Pressure : / mmHG Vent. Rate : 087 BPM Atrial Rate : 000 BPM P-R Int : 000 ms QRS Dur : 070 ms QT Int : 392 ms P-R-T Axes : 000 011 162 degrees QTc Int : 471 ms Accelerated Junctional rhythm ST & T wave abnormality, consider lateral ischemia Prolonged QT Abnormal ECG When compared with ECG of 15-AUG-2022 14:26, Junctional rhythm has replaced Sinus rhythm Non-specific change in ST segment in Lateral leads T wave inversion now evident in Lateral leads Referred By: Margret Whitaker Electronically Signed By:
[2022-08-17 17:04] LABS: Glucose, Whole Blood 259 mg/dL (60-115)
--- NOTE | 2022-08-17 17:25 | PC.NURSE ---
this rn bringing ekg to rapid response in ir room 7 d/t lack of ekg available in that area. dr abarca giving verbal order for 1mg ativan ivp stat for ?seizure activity. ativan given ivp at 1525, flushed w 10ml normal saline at 1525. staff in radiology unable to provide chart to this rn for medication administration record.
[2022-08-17] MEDS: Albumin Human 25 % 100 ML IV ×2 (17:40→19:38)
--- NOTE | 2022-08-17 17:40 | PM.EVENT ---
Event Note Date of Service: 08/17/22 Event Note: Rapid response called during paracentesis. patient stopped responding verbally. pt initially soft, placed in Trendelenburg. repeat vitals stable, BP around 110 systolic no seizure activity noted patient's eyes open, but not responding to verbal or painful stimuli. pt appears comfortable, not in any distress. breathing unlabored. not following commands POC checked, sugar above 200 EKG non-ischemic stat ammonia, BMP and brain CT ordered and pending at this time. given 1 mg IV ativan with no change in mental status further workup/treatment based on outcome of results continues to be hemodynamically stable upon review of chart, pt with multiple episodes of nonepileptic seizures and question of conversion ?etiology for symptoms Time Spent With Patient Time: Total time managing care of this patient today ____ minutes.
[2022-08-17 17:45] VITALS: BP 105/55; PULSE 76; RESP 16; TEMP 36.1; O2SAT 97
[2022-08-17 17:48] LABS: MN% 94.7 %; PMN% 5.3 %; WBC Peritoneal Fluid 0.041 X10*3/uL
[2022-08-17 17:51] LABS: RBC Peritoneal Fluid < 0.002 X10*6/uL
[2022-08-17 18:08] LABS: BF Shift QC OK YES
[2022-08-17 18:09] LABS: Lymphocyte Peritoneal Fl 50 %; Monocytes Peritoneal Fl 45 %; Other Peritioneal Fl 5 %
[2022-08-17 19:20] LABS: Ammonia 41 umol/L (13-55)
[2022-08-17 19:26] LABS: Anion Gap 8 (12-20); Blood Urea Nitrogen 11 mg/dL (9-16); Calcium 7.8 mg/dL (8.4-10.2); Carbon Dioxide 31 mmol/L (22-29); Chloride 103 mmol/L (96-108); Creatinine Clr Calc Pharmacy 72.5; Estimated Glomerular Filt Rate > 60; Glucose Random 278 mg/dL (60-115); Potassium 3.5 mmol/L (3.3-5.1); Sodium 138 mmol/L (135-145)
--- NOTE | 2022-08-17 19:29 | PM.EVENT ---
Event Note Date of Service: 08/17/22 Event Note: GI Consult-Full note dictated Imp: 56 yo female with advanced cirrhosis of unclear etiology with complications including ascites with associated SBP. She has been readmitted for problems including her ascites, although her paracentesis today appears negative for SBP by cell count. She had an episode of unresponsiveness in U/S earlier after her paracentesis. I have spoken with her in the past about liver transplant evaluations but she has always adamantly refused that. Rec: Supportive care. I would increase her diuretics as tolerated based on her VS and renal function. I increased her Aldactone to 50mg BID. I would continue the Lasix at the current regimen. Follow renal function and chemistries. I would have a nephrology consult be involved if her ascites proves refractory. Continue PPI. Check final cultures on ascites. Check ammonia level. Thanks Time Spent With Patient Time: Total time managing care of this patient today ____ minutes.
[2022-08-17] MEDS: Insulin Lispro 100 UNIT/ML 3 ML VIAL SUBCUT (19:36)
[2022-08-17 21:13] LABS: Glucose, Whole Blood 257 mg/dL (60-115)
[2022-08-17 22:00] VITALS: BP 81/51
--- NOTE | 2022-08-17 22:49 | PM.EVENT ---
Event Note Date of Service: 08/17/22 Event Note: a rapid response was called on the pt before my shift had begun for episode of unresponsiveness. received mssg from nurse that pt hypotensive. Ammonia level 41. on my exam , pt is somnolent but wakes up to verbal stimuli. denies cp, reports abd pain in the right upper quadrant. Pt receiving albumin x4. received midodrine. will start her on lactulose. will obtain abd CT. CXR obtained earlier from code shows infiltrated. will tx with IV abx and obtain lactic acid. complete albumin infusion. If remains hypotensive, will contact ICU Time Spent With Patient Time: Total time managing care of this patient today ____ minutes.
[2022-08-17 23:02] LABS: Glucose, Whole Blood 149 mg/dL (60-115)
[2022-08-17] MEDS: Lactulose 20 GM/30 ML SOLUTION 30 GM PO (23:02)
[2022-08-17 23:46] LABS: LDH Peritoneal Fluid 53 U/L; Total Protein Peritoneal Fluid 1.5 GM/DL
[2022-08-18] VITALS (7 sets, daily range): BP systolic 92–120; BP diastolic 50–65; PULSE 62–89; RESP 16–19; TEMP 36.1–36.6; O2SAT 94–99
[2022-08-18 00:09] LABS: Lactic Acid 1.9 mmol/L (0.5-2.0)
[2022-08-18] MEDS: cefEPime HCl 2 GM in 0.9 % Sodium Chloride 50 ML IV (00:09)
[2022-08-18] MEDS: 0.9 % Sodium Chloride Flush 3 ML SYRINGE IVFLUSH ×3 (01:32→15:24)
--- NOTE | 2022-08-18 01:43 | PC.NURSE ---
Addendum entered by Jericho Hillman RN 08/18/22 01:50: Patient with new orders for lactic acid, blood cx, vancomycin, cefepime and CTAP; handover report given to CHRIS Henriquez, lab contacted to draw stat labs Original Note: [facility] responded to approximately 17:00; per staff at [facility] in paracentesis procedure, patient LKWT 16:30; hypotension with SBP 81; Dr. Rothman attending to patient, POC 256; patient unresponsive, but blinks, seen to antigravity bilateral upper extremities, PERRL, but not reacting to pain; EKG done; 1 mg IV ativan given for concern for possible seizure activity; MD ordered neuro consult, Q2 hour neuros; BMP and ammonia checked; CTH; MRI brain; patient unable to answer MRI screening, but was cleared with imaging by MD. Patient went to MRI and returned and repeatedly hypotensive, with BP 81/51; MD contacted and responded at bedside, ordered increased rate of albumin infusion to bolus dose. patient's feet raised, held lasix IV 20 mg, held lyrica per MD, repeat BP 91/51, map only 60, MD aware. other vital signs largely unremakrable. Patient still very lethargic, forgetful, minimally reactive, follows commands when awoken, discussed pt lack of lactuose or xifaxan ordered, and new order for lactulose.
--- NOTE | 2022-08-18 02:53 | CONS_ITS ---
DATE OF SERVICE: 08/17/2022 REASON FOR CONSULTATION: Cirrhosis and ascites. HISTORY OF PRESENT ILLNESS: This is a 56-year-old female well known to me from previous hospitalizations in regard to underlying cirrhosis of unclear etiology with associated ascites. The patient has had a history of documented spontaneous bacterial peritonitis in the past. She has been on diuretics but was admitted here on August 15 with increasing abdominal discomfort and ascites. She has had a history of some encephalopathy, seizure disorder, and GI bleeding. Since admission on August 15, she had a paracentesis with fluid analysis negative for spontaneous bacterial peritonitis by cell count. However, after today's ultrasound by paracentesis, she developed unresponsiveness and possible seizure. She was stabilized and brought back to the [facility] for further monitoring. There has been no reported GI bleeding on this admission. The etiology of her liver disease is unknown, and therefore most likely related to chronic fatty liver. She does have a family history of primary biliary cholangitis in her mother. There is no history of alcohol use. Previous further workup including autoimmune studies and metabolic studies were all noncontributory. Of note, I have reviewed with the patient on numerous occasions about obtaining a liver transplant evaluation, but she always refused that quite adamantly. CURRENT MEDICATIONS: Cefepime, Lasix, insulin, lactulose, melatonin, midodrine, morphine p.r.n., omeprazole, ondansetron, pregabalin, vancomycin. PAST MEDICAL HISTORY: Cirrhosis of unclear etiology, ascites, with history of SVT, history of upper GI bleed in relation to peptic ulcer disease, although she did have nonbleeding esophageal varices noted during that endoscopy on July 19, 2022. Her current medical issues include diabetes, seizure disorder, history of encephalopathy, gallstones, hypertension, perinephric abscess, UTIs. SOCIAL HISTORY: She does not smoke, nor use any significant alcohol. FAMILY HISTORY: Noncontributory, although her mother did have primary biliary cholangitis. PHYSICAL EXAMINATION: GENERAL: Again the patient is a somewhat sleepy and slightly arousable female, but in no distress. HEENT: Anicteric sclerae. NECK: Supple. ABDOMEN: Soft, nondistended, nontender. She still has ascites present. Her cell count on the ascites fluid removed today was only 41 white blood cells total. White blood cell count on her CBC was 2.3 today, hemoglobin 9.6, platelets 103,000. PT 16.9 with INR 1.5. Normal electrolytes. BUN 11, albumin 2.6. Her CT scan of the abdomen and pelvis on August 15 revealed cirrhosis but no sign of liver lesion. Gallstones were noted. Pancreas and spleen were unremarkable. There was a large amount of ascites. There were no GI tract abnormalities. IMPRESSION: This is a 56-year-old female with advanced underlying liver disease, most likely in relation to fatty liver given the otherwise negative workup. At the present time, she does not show any signs of spontaneous bacterial peritonitis. She has had no GI bleeding. At this point, we will continue supportive care. I will increase her diuretics as tolerated based on her vital signs and renal function. I have increased the Aldactone to 50 mg b.i.d. I will continue her Lasix. I would follow her renal function, but would have a nephrology consult be involved if her ascites proves refractory or if she develops any metabolic issues with her renal function and other chemistries. I would continue her on a PPI. I will check final cultures on her ascites specimen. Again, I have reviewed with her in the past potential liver transplant evaluation, but she has always refused that. Thank you for this consultation. MD TYSON Mcgovern/LYNDSEY / [id number] MTDD
[2022-08-18] MEDS: Albumin Human 25 % 100 ML IV ×2 (06:22→17:44)
[2022-08-18 06:34] LABS: Hematocrit 29.1 % (37.0-47.0); Hemoglobin 9.1 g/dl (12.0-16.0); Mean Corpuscular HGB Conc 31.3 g/dl (31.0-35.0); Mean Corpuscular Hemoglobin 30.1 pg (27.0-33.0); Mean Corpuscular Volume 96.4 fL (80.0-98.0); Mean Platelet Volume 10.3 fL (9.4-12.3); Platelet Count 101 X10*3/uL (160-400); Red Blood Count 3.02 X10*6/uL (4.20-5.50); Red Cell Distribution Width 15.9 % (11.0-16.0); White Blood Count 2.6 X10*3/uL (4.8-10.8)
[2022-08-18 06:53] LABS: Anion Gap 10 (12-20); Blood Urea Nitrogen 10 mg/dL (9-16); Calcium 7.9 mg/dL (8.4-10.2); Carbon Dioxide 30 mmol/L (22-29); Chloride 106 mmol/L (96-108); Creatinine Clr Calc Pharmacy 87.4; Estimated Glomerular Filt Rate > 60; Glucose Random 113 mg/dL (60-115); Potassium 3.9 mmol/L (3.3-5.1); Sodium 142 mmol/L (135-145)
[2022-08-18 07:42] LABS: Glucose, Whole Blood 124 mg/dL (60-115)
[2022-08-18] MEDS: Furosemide 20 MG/2 ML VIAL IVPUSH ×2 (08:09→17:22)
[2022-08-18] MEDS: Pregabalin 25 MG CAPSULE PO ×2 (08:10→21:53)
[2022-08-18] MEDS: Insulin Glargine,Hum.rec.anlog 100 UNIT/ML 10 ML VIAL 20 UNIT SUBCUT (08:10)
[2022-08-18] MEDS: Midodrine HCl 10 MG TABLET PO ×3 (08:10→17:28)
[2022-08-18] MEDS: Spironolactone 25 MG TABLET 50 MG PO ×2 (08:10→17:22)
[2022-08-18 11:22] LABS: Glucose, Whole Blood 251 mg/dL (60-115)
[2022-08-18] MEDS: cefTRIAXone sodium 1 GM in 0.9 % Sodium Chloride 50 ML IV (11:50)
[2022-08-18] MEDS: Insulin Lispro 100 UNIT/ML 3 ML VIAL SUBCUT ×2 (12:46→17:33)
--- NOTE | 2022-08-18 12:47 | P.PNIM_ITS ---
Subjective Subjective Date of Service: 08/18/22 Interval History: Seen and evaluated this morning Had an incident last evening with altered mentation and abnormal movement concerning for possible seizure or pseudo-seizure attack Brain MRI, CT scan of the abdomen both negative for any acute findings Recollecting fluids in her abdomen this morning Reporting pain and tenderness upon exam No fever but has some chills Review of Systems Review of Systems: Yes all other systems are reviewed and are negative Physical Exam Vital Signs: Vital Signs: Last Vital Signs Temp 97.0 F 08/18/22 11:00 Pulse 70 08/18/22 11:00 Resp 16 08/18/22 11:00 BP 120/62 08/18/22 11:00 Pulse Ox 96 08/18/22 11:00 O2 Del Method 08/18/22 11:00 O2 Flow Rate 96 08/16/22 20:11 BMI result Body Mass Index 29.1 Const: Other: Constitutional : Awake, interactive upon stimulation, not in distress Neck : Normal inspection, Supple Cardiovascular : RRR, no JVP, no lower extremity edema Respiratory : good bilateral air entry, no crackles, wheezes or rhonchi Gastrointestinal: soft, lax, Normal bowel sounds, distended moderately, generalized vague tenderness with no surgical signs Skin : Warm, Dry Neurological : Alert & oriented to self and place, No focal deficit Objective Data Active Medications Dextrose (Dextrose 50 % 25 Gm/50 Ml Syringe) 25 gm IVPUSH Q15M PRN; Protocol PRN Reason: per Hypoglycemia Standing Ord. Furosemide (Furosemide 20 Mg/2 Ml Vial) 20 mg IVPUSH BID@0900,1800 [facility]; Protocol Last Admin: 08/18/22 08:09 Dose: 20 mg Documented By: ILYA Glucose (Glucose Gel 15 Gm Gel..Gram.) 15 gm PO Q15M PRN; Protocol PRN Reason: per Hypoglycemia Standing Ord. Azithromycin 500 mg/ Sodium (Chloride) 250 mls @ 125 mls/hr IV Q24H [facility] Ceftriaxone Sodium 1 gm/ (Sodium Chloride) 50 mls @ 100 mls/hr IV Q24H [facility] Insulin Glargine (Insulin Glargine,Hum.Rec.Anlog 100 Unit/Ml 10 Ml Vial) 20 unit SUBCUT DAILY [facility] Last Admin: 08/18/22 08:10 Dose: 20 unit Documented By: ILYA Insulin Human Lispro (Insulin Lispro 100 Unit/Ml 3 Ml Vial) 0 unit SUBCUT QIDACHS [facility]; Protocol Last Admin: 08/18/22 12:46 Dose: 6 unit Documented By: ILYA Lactulose (Lactulose 20 Gm/30 Ml Solution) 30 gm PO TID [facility] Last Admin: 08/18/22 08:26 Dose: Not Given Documented By: ILYA Non-Admin Reason: Patient Refused Melatonin (Melatonin 3 Mg Tablet) 6 mg PO BEDTIME PRN PRN Reason: Insomnia Last Admin: 08/16/22 02:34 Dose: 6 mg Documented By: DEMETRIO-MARCY Midodrine (Midodrine Hcl 10 Mg Tablet) 10 mg PO TIDWM [facility] Last Admin: 08/18/22 12:46 Dose: 10 mg Documented By: ILYA Morphine Sulfate (Morphine Sulfate 4 Mg/Ml Cartridge) 2 mg IVPUSH Q4H PRN; Protocol PRN Reason: Pain, Severe (Pain Scale 7-10) Last Admin: 08/16/22 07:56 Dose: 2 mg Documented By: LELO Omeprazole (Omeprazole 40 Mg Capsule.Dr) 40 mg PO BID@0630,1630 [facility] Last Admin: 08/18/22 06:21 Dose: Not Given Documented By: HARRY Non-Admin Reason: not alert Ondansetron HCl (Ondansetron Hcl 4 Mg/2 Ml Vial) 4 mg IVPUSH Q8H PRN PRN Reason: Nausea and Vomiting Last Admin: 08/16/22 02:34 Dose: 4 mg Documented By: CHRISTA Oxycodone HCl (Oxycodone Hcl Immed Release 5 Mg Tablet) 5 mg PO Q4H PRN PRN Reason: Pain, Moderate (Pain Scale 4-6 Last Admin: 08/17/22 05:03 Dose: 5 mg Documented By: MARLON Pregabalin (Pregabalin 25 Mg Capsule) 25 mg PO BID [facility] Last Admin: 08/18/22 08:10 Dose: 25 mg Documented By: ILYA Sodium Chloride (0.9 % Sodium Chloride Flush 3 Ml Syringe) 3 ml IVFLUSH QSHIFT [facility] Last Admin: 08/18/22 08:11 Dose: 3 ml Documented By: ILYA Spironolactone (Spironolactone 25 Mg Tablet) 50 mg PO BID@0900,1800 [facility]; Protocol Last Admin: 08/18/22 08:10 Dose: 50 mg Documented By: ILYA Labs CBC & Chem 7: 08/18/22 06:17 08/18/22 06:17 Labs: Laboratory Results - last 24 hr 08/17/22 08/17/22 08/17/22 16:00 16:00 17:01 MCV MCH MCHC RDW Plt Count MPV Absolute Nucleated RBC Nucleated RBC % (auto) Anion Gap Estim Creat Clear Calc Estimated GFR POC Glucose 259 H Random Glucose Lactic Acid Calcium Ammonia Peritoneal WBC 0.041 Peritoneal RBC < 0.002 Periton Lymphocytes 50 Peritoneal Monocytes 45 Peritoneal Other Cells 5 Peritoneal Tot Protein 1.5 Peritoneal LDH 53 08/17/22 08/17/22 08/17/22 18:59 18:59 19:22 MCV MCH MCHC RDW Plt Count MPV Absolute Nucleated RBC Nucleated RBC % (auto) Anion Gap 8 L Estim Creat Clear Calc 72.5 Estimated GFR > 60 POC Glucose 257 H Random Glucose 278 H Lactic Acid Calcium 7.8 L Ammonia 41 Peritoneal WBC Peritoneal RBC Periton Lymphocytes Peritoneal Monocytes Peritoneal Other Cells Peritoneal Tot Protein Peritoneal LDH 08/17/22 08/17/22 08/18/22 22:23 23:31 06:17 MCV 96.4 MCH 30.1 MCHC 31.3 RDW 15.9 Plt Count 101 L MPV 10.3 Absolute Nucleated RBC 0.000 Nucleated RBC % (auto) 0.0 Anion Gap Estim Creat Clear Calc Estimated GFR POC Glucose 149 H Random Glucose Lactic Acid 1.9 Calcium Ammonia Peritoneal WBC Peritoneal RBC Periton Lymphocytes Peritoneal Monocytes Peritoneal Other Cells Peritoneal Tot Protein Peritoneal LDH 08/18/22 08/18/22 08/18/22 06:17 07:38 11:05 MCV MCH MCHC RDW Plt Count MPV Absolute Nucleated RBC Nucleated RBC % (auto) Anion Gap 10 L Estim Creat Clear Calc 87.4 Estimated GFR > 60 POC Glucose 124 H 251 H Random Glucose 113 Lactic Acid Calcium 7.9 L Ammonia Peritoneal WBC Peritoneal RBC Periton Lymphocytes Peritoneal Monocytes Peritoneal Other Cells Peritoneal Tot Protein Peritoneal LDH Microbiology Microbiology Results: Microbiology 08/15/22 17:02 Gram Stain - Final Abdominal Fluid Routine Culture - Final No growth after 2 days Anaerobic Culture - Preliminary No growth to date. 08/15/22 14:01 Blood Culture - Preliminary Blood - Venous No growth after 48 hours. 08/15/22 13:42 Blood Culture - Preliminary Blood - Venous No growth after 48 hours. Assessment and Plan (1) Ascites: Status: Acute (2) Anasarca: Status: Acute (3) Encephalopathy: Status: Acute Plan 56yo F with cirrhosis here with anasarca after missing scheduled paracentesis a week ago--recent hospitalization for hypoglycemia seizure, encephalopathy, gi bleeed # ascites due to cirrhosis s/p? paracenteses of 6L+ 4L Seems to be recollecting again No evidence of SBP Continue lasix + increase aldactone to 50 Negative Hep B/C Received Albumin 25% x4 GI input appreciated To get Nephrology consult for refractory ascites # episodes of altered mentation Seems to be related to pseudoseizures VS real seizures No tonic clonic activities was seen, patient a lies white open during the episode but she is not responsive, recovers quickly with painful stimuli Ammonia level within normal, continue lactulose Brain MRI negative for any acute findings Recurrent orientation, consider psychiatry evaluation if recurrence # insulin-dependent type 2 diabetes diabetic diet continue insulin glargine Humulin sliding scale # coagulopathy secondary to cirrhosis follow coags # hypotension secondary to cirrhosis increase midodrine to 10 mg 3 times daily # chronic normocytic anemia related to chronic disease H/H stable # pancytopenia secondary to cirrhosis DVT prophylaxis compression devices Full code Patient requires ongoing inpatient stay for management of cirrhosis with reaccumulation of ascites requiring paracentesis, IV medications pending nephrology evaluation Time Spent With Patient Time: Total time managing care of this patient today ____ minutes. Quality Stroke Does the patient have a stroke diagnosis?: No VTE Prior VTE?: No VTE Risk Level:: Medical - low VTE Device Contraindication: Treatment Not Indicated VTE Drug Contraindication: Treatment Not Indicated
[2022-08-18 13:00] LABS: Glucose, Whole Blood 307 mg/dL (60-115)
[2022-08-18] MEDS: Lactulose 20 GM/30 ML SOLUTION 30 GM PO ×2 (15:23→21:46)
[2022-08-18] MEDS: Omeprazole 40 MG CAPSULE.DR PO (15:24)
[2022-08-18 16:03] LABS: Glucose, Whole Blood 242 mg/dL (60-115)
[2022-08-18 18:03] LABS: Glucose, Whole Blood 184 mg/dL (60-115)
--- NOTE | 2022-08-18 18:09 | PC.NURSE ---
[employer] called for: pt having blank stare for 10 min , eyes open, not speaking.BP 117/61 hr 73 o2 sat 97%on [address] Ragsdale and [employer] team at the bedside, updated the daughter at the bedside about the plan of care . Pt is alert and oriented now talking to her daughter and the family via face time
[2022-08-18 20:13] LABS: Glucose, Whole Blood 107 mg/dL (60-115)
[2022-08-19] MEDS: 0.9 % Sodium Chloride Flush 3 ML SYRINGE IVFLUSH ×3 (01:34→12:26)
[2022-08-19 01:58] VITALS: PULSE 68; RESP 18
[2022-08-19 03:59] VITALS: BP 98/56; PULSE 71; RESP 20; TEMP 37.1; O2SAT 98
[2022-08-19] MEDS: Omeprazole 40 MG CAPSULE.DR PO ×2 (06:38→16:39)
[2022-08-19 06:59] LABS: Anion Gap 10 (12-20); Blood Urea Nitrogen 9 mg/dL (9-16); Calcium 7.9 mg/dL (8.4-10.2); Carbon Dioxide 30 mmol/L (22-29); Chloride 105 mmol/L (96-108); Creatinine Clr Calc Pharmacy 77.8; Estimated Glomerular Filt Rate > 60; Glucose Random 134 mg/dL (60-115); Potassium 3.7 mmol/L (3.3-5.1); Sodium 141 mmol/L (135-145)
[2022-08-19 07:00] VITALS: BP 107/55; PULSE 71; RESP 18; TEMP 36.2; O2SAT 98
[2022-08-19 07:15] LABS: Glucose, Whole Blood 122 mg/dL (60-115)
[2022-08-19] MEDS: Lactulose 20 GM/30 ML SOLUTION 30 GM PO (09:17)
[2022-08-19] MEDS: Spironolactone 25 MG TABLET 50 MG PO ×2 (09:18→18:07)
[2022-08-19] MEDS: Furosemide 20 MG/2 ML VIAL IVPUSH ×2 (09:19→18:07)
[2022-08-19] MEDS: Insulin Glargine,Hum.rec.anlog 100 UNIT/ML 10 ML VIAL 25 UNIT SUBCUT (09:19)
[2022-08-19] MEDS: Pregabalin 25 MG CAPSULE PO ×2 (09:19→21:24)
[2022-08-19] MEDS: Midodrine HCl 10 MG TABLET PO ×3 (09:19→16:39)
[2022-08-19 11:00] VITALS: BP 97/56; PULSE 76; RESP 20; TEMP 36.4; O2SAT 95
[2022-08-19 11:02] LABS: Glucose, Whole Blood 197 mg/dL (60-115)
[2022-08-19] MEDS: Insulin Lispro 100 UNIT/ML 3 ML VIAL SUBCUT ×3 (12:25→21:25)
[2022-08-19] MEDS: cefTRIAXone sodium 1 GM in 0.9 % Sodium Chloride 50 ML IV (12:26)
--- NOTE | 2022-08-19 12:37 | HO.PM.IMPN ---
Subjective Subjective Date of Service: 08/19/22 Interval History: Seen and evaluated this morning Recurrent episodes of altered mentation and abnormal movement concerning for possible seizure or pseudo-seizure attack Less anxious, more relaxed this morning Recollecting fluids in her abdomen Reporting pain and tenderness upon exam No fever but has some chills Review of Systems Review of Systems: Yes all other systems are reviewed and are negative Physical Exam Vital Signs: Vital Signs: Last Vital Signs Temp 97.6 F 08/19/22 11:00 Pulse 76 08/19/22 11:00 Resp 20 08/19/22 11:00 BP 97/56 L 08/19/22 11:00 Pulse Ox 95 08/19/22 11:00 O2 Del Method 08/19/22 11:00 O2 Flow Rate 96 08/16/22 20:11 BMI result Body Mass Index 29.1 Const: Other: Constitutional : Awake, interactive upon stimulation, not in distress Neck : Normal inspection, Supple Cardiovascular : RRR, no JVP, no lower extremity edema Respiratory : good bilateral air entry, no crackles, wheezes or rhonchi Gastrointestinal: soft, lax, Normal bowel sounds, distended moderately, generalized vague tenderness with no surgical signs Skin : Warm, Dry Neurological : Alert & oriented to self and place, No focal deficit Objective Data Active Medications Dextrose (Dextrose 50 % 25 Gm/50 Ml Syringe) 25 gm IVPUSH Q15M PRN; Protocol PRN Reason: per Hypoglycemia Standing Ord. Furosemide (Furosemide 20 Mg/2 Ml Vial) 20 mg IVPUSH BID@0900,1800 [facility]; Protocol Last Admin: 08/19/22 09:19 Dose: 20 mg Documented By: ISATU Glucose (Glucose Gel 15 Gm Gel..Gram.) 15 gm PO Q15M PRN; Protocol PRN Reason: per Hypoglycemia Standing Ord. Ceftriaxone Sodium 1 gm/ (Sodium Chloride) 50 mls @ 100 mls/hr IV Q24H [facility] Last Admin: 08/19/22 12:26 Dose: 100 mls/hr Documented By: ISATU Azithromycin 500 mg/ Sodium (Chloride) 250 mls @ 125 mls/hr IV Q24H [facility] Insulin Glargine (Insulin Glargine,Hum.Rec.Anlog 100 Unit/Ml 10 Ml Vial) 25 unit SUBCUT DAILY [facility] Last Admin: 08/19/22 09:19 Dose: 25 unit Documented By: ISATU Insulin Human Lispro (Insulin Lispro 100 Unit/Ml 3 Ml Vial) 0 unit SUBCUT QIDACHS [facility]; Protocol Last Admin: 08/19/22 12:25 Dose: 2 unit Documented By: ISATU Lactulose (Lactulose 20 Gm/30 Ml Solution) 30 gm PO TID [facility] Last Admin: 08/19/22 09:17 Dose: 20 gm Documented By: ISATU Comments: Patient only willing to take 20ml, other 15ml refused to take. Melatonin (Melatonin 3 Mg Tablet) 6 mg PO BEDTIME PRN PRN Reason: Insomnia Last Admin: 08/16/22 02:34 Dose: 6 mg Documented By: CHRISTA Midodrine (Midodrine Hcl 10 Mg Tablet) 10 mg PO TIDWM [facility] Last Admin: 08/19/22 12:25 Dose: 10 mg Documented By: ISATU Morphine Sulfate (Morphine Sulfate 4 Mg/Ml Cartridge) 2 mg IVPUSH Q4H PRN; Protocol PRN Reason: Pain, Severe (Pain Scale 7-10) Last Admin: 08/16/22 07:56 Dose: 2 mg Documented By: LELO Omeprazole (Omeprazole 40 Mg Capsule.Dr) 40 mg PO BID@0630,1630 [facility] Last Admin: 08/19/22 06:38 Dose: 40 mg Documented By: DENVER Ondansetron HCl (Ondansetron Hcl 4 Mg/2 Ml Vial) 4 mg IVPUSH Q8H PRN PRN Reason: Nausea and Vomiting Last Admin: 08/16/22 02:34 Dose: 4 mg Documented By: CHRISTA Oxycodone HCl (Oxycodone Hcl Immed Release 5 Mg Tablet) 5 mg PO Q4H PRN PRN Reason: Pain, Moderate (Pain Scale 4-6 Last Admin: 08/17/22 05:03 Dose: 5 mg Documented By: MARLON Pregabalin (Pregabalin 25 Mg Capsule) 25 mg PO BID [facility] Last Admin: 08/19/22 09:19 Dose: 25 mg Documented By: ISATU Sodium Chloride (0.9 % Sodium Chloride Flush 3 Ml Syringe) 3 ml IVFLUSH QSHI Last Admin: 08/19/22 12:26 Dose: 3 ml Documented By: ISATU Spironolactone (Spironolactone 25 Mg Tablet) 50 mg PO BID@0900,1800 [facility]; Protocol Last Admin: 08/19/22 09:18 Dose: 50 mg Documented By: ISATU Labs CBC & Chem 7: 08/18/22 06:17 08/19/22 06:06 Labs: Laboratory Results - last 24 hr 08/18/22 08/18/22 08/18/22 12:52 15:57 17:59 Anion Gap Estim Creat Clear Calc Estimated GFR POC Glucose 307 H 242 H 184 H Random Glucose Calcium 08/18/22 08/19/22 08/19/22 20:09 06:06 07:12 Anion Gap 10 L Estim Creat Clear Calc 77.8 Estimated GFR > 60 POC Glucose 107 122 H Random Glucose 134 H Calcium 7.9 L 08/19/22 10:58 Anion Gap Estim Creat Clear Calc Estimated GFR POC Glucose 197 H Random Glucose Calcium Microbiology Microbiology Results: Microbiology 08/17/22 23:31 Blood Culture - Preliminary Blood - Venous No growth after 24 hours. 08/17/22 23:31 Blood Culture - Preliminary Blood - Venous No growth after 24 hours. 08/15/22 17:02 Gram Stain - Final Abdominal Fluid Routine Culture - Final No growth after 2 days Anaerobic Culture - Preliminary No growth to date. Assessment and Plan (1) Ascites: Status: Acute (2) Anasarca: Status: Acute (3) Cirrhosis: Status: Acute Plan 56yo F with cirrhosis here with anasarca after missing scheduled paracentesis a week ago--recent hospitalization for hypoglycemia seizure, encephalopathy, gi bleeed # ascites due to cirrhosis s/p? paracenteses of 6L+ 4L Seems to be recollecting again No evidence of SBP Continue lasix + increase aldactone to 50 Negative Hep B/C Received Albumin 25% x4 GI input appreciated Pending Nephrology consult for refractory ascites # episodes of altered mentation Seems to be related to pseudoseizures more than real seizures No tonic clonic activities was seen, patient a lies white open during the episode but she is not responsive, recovers quickly with painful stimuli Ammonia level within normal, continue lactulose Brain MRI negative for any acute findings Recurrent orientation, to get psychiatry evaluation # insulin-dependent type 2 diabetes diabetic diet continue insulin glargine Humulin sliding scale # coagulopathy secondary to cirrhosis follow coags # hypotension secondary to cirrhosis increase midodrine to 10 mg 3 times daily # chronic normocytic anemia related to chronic disease H/H stable # pancytopenia secondary to cirrhosis DVT prophylaxis compression devices Full code Patient requires ongoing inpatient stay for management of cirrhosis with reaccumulation of ascites requiring paracentesis, IV medications pending nephrology evaluation Time Spent With Patient Time: Total time managing care of this patient today ____ minutes. Quality Stroke Does the patient have a stroke diagnosis?: No VTE Prior VTE?: No VTE Risk Level:: Medical - low VTE Device Contraindication: Treatment Not Indicated VTE Drug Contraindication: Treatment Not Indicated
[2022-08-19] MEDS: Azithromycin 500 MG in 0.9 % Sodium Chloride 250 ML 125 MG IV (14:00)
[2022-08-19 15:58] VITALS: BP 104/57; PULSE 78; RESP 19; TEMP 36.8; O2SAT 99
[2022-08-19 16:25] LABS: Glucose, Whole Blood 253 mg/dL (60-115)
[2022-08-19] MEDS: Calcium Carbonate 750 MG TAB.CHEW PO (16:39)
[2022-08-19 18:06] VITALS: BP 95/50; PULSE 76; RESP 18; O2SAT 97
[2022-08-19 20:18] LABS: Glucose, Whole Blood 154 mg/dL (60-115)
[2022-08-20] VITALS (7 sets, daily range): BP systolic 93–106; BP diastolic 53–60; PULSE 68–76; RESP 17–20; TEMP 36–37; O2SAT 95–100
[2022-08-20] MEDS: Omeprazole 40 MG CAPSULE.DR PO ×2 (06:06→18:53)
[2022-08-20 07:34] LABS: Glucose, Whole Blood 126 mg/dL (60-115)
[2022-08-20] MEDS: Midodrine HCl 10 MG TABLET PO ×3 (09:12→18:51)
[2022-08-20] MEDS: Pregabalin 25 MG CAPSULE PO ×2 (09:12→20:16)
[2022-08-20] MEDS: Spironolactone 25 MG TABLET 50 MG PO (09:12)
[2022-08-20] MEDS: Simethicone 80 MG TAB.CHEW PO ×4 (09:13→20:16)
[2022-08-20] MEDS: Furosemide 20 MG/2 ML VIAL IVPUSH (09:13)
[2022-08-20] MEDS: 0.9 % Sodium Chloride Flush 3 ML SYRINGE IVFLUSH ×2 (09:14→19:27)
[2022-08-20] MEDS: Insulin Glargine,Hum.rec.anlog 100 UNIT/ML 10 ML VIAL 25 UNIT SUBCUT (09:15)
[2022-08-20 11:13] LABS: Glucose, Whole Blood 180 mg/dL (60-115)
--- NOTE | 2022-08-20 12:04 | HO.PM.IMPN ---
Subjective Subjective Date of Service: 08/20/22 Interval History: Seen and evaluated this morning Less anxious, more relaxed this morning with no reported abnormal movement or altered mentation events yesterday Recollecting fluids in her abdomen No fever but has some chills Review of Systems Review of Systems: Yes all other systems are reviewed and are negative Physical Exam Vital Signs: Vital Signs: Last Vital Signs Temp 97.6 F 08/20/22 11:07 Pulse 73 08/20/22 11:07 Resp 20 08/20/22 11:07 BP 106/60 08/20/22 11:07 Pulse Ox 100 08/20/22 11:07 O2 Del Method 08/20/22 11:07 O2 Flow Rate 96 08/16/22 20:11 BMI result Body Mass Index 29.1 Const: Other: Constitutional : Awake, interactive upon stimulation, not in distress Neck : Normal inspection, Supple Cardiovascular : RRR, no JVP, no lower extremity edema Respiratory : good bilateral air entry, no crackles, wheezes or rhonchi Gastrointestinal: soft, lax, Normal bowel sounds, distended moderately with moderate amount of ascites, generalized vague tenderness with no surgical signs Skin : Warm, Dry Neurological : Alert & oriented to self and place, No focal deficit Objective Data Active Medications Calcium Carbonate (Calcium Carbonate 750 Mg Tab.Chew) 750 mg PO Q4H PRN PRN Reason: Heartburn Last Admin: 08/19/22 16:39 Dose: 750 mg Documented By: ISATU Dextrose (Dextrose 50 % 25 Gm/50 Ml Syringe) 25 gm IVPUSH Q15M PRN; Protocol PRN Reason: per Hypoglycemia Standing Ord. Furosemide (Furosemide 20 Mg/2 Ml Vial) 20 mg IVPUSH BID@0900,1800 [facility]; Protocol Last Admin: 08/20/22 09:13 Dose: 20 mg Documented By: ESPERANZA Glucose (Glucose Gel 15 Gm Gel..Gram.) 15 gm PO Q15M PRN; Protocol PRN Reason: per Hypoglycemia Standing Ord. Ceftriaxone Sodium 1 gm/ (Sodium Chloride) 50 mls @ 100 mls/hr IV Q24H [facility] Last Infusion: 08/19/22 13:36 Dose: 0 mls/hr Documented By: ISATU Azithromycin 500 mg/ Sodium (Chloride) 250 mls @ 125 mls/hr IV Q24H [facility] Last Infusion: 08/19/22 16:14 Dose: 0 mls/hr Documented By: ISATU Insulin Glargine (Insulin Glargine,Hum.Rec.Anlog 100 Unit/Ml 10 Ml Vial) 25 unit SUBCUT DAILY [facility] Last Admin: 08/20/22 09:15 Dose: 25 unit Documented By: ESPERANZA Insulin Human Lispro (Insulin Lispro 100 Unit/Ml 3 Ml Vial) 0 unit SUBCUT QIDACHS [facility]; Protocol Last Admin: 08/20/22 07:35 Dose: Not Given Documented By: ESPERANZA Non-Admin Reason: No Insulin Coverage Lactulose (Lactulose 20 Gm/30 Ml Solution) 30 gm PO TID [facility] Last Admin: 08/20/22 09:27 Dose: Not Given Documented By: ESPERANZA Non-Admin Reason: Patient Refused Melatonin (Melatonin 3 Mg Tablet) 6 mg PO BEDTIME PRN PRN Reason: Insomnia Last Admin: 08/16/22 02:34 Dose: 6 mg Documented By: CHRISTA Midodrine (Midodrine Hcl 10 Mg Tablet) 10 mg PO TIDWM [facility] Last Admin: 08/20/22 09:12 Dose: 10 mg Documented By: ESPERANZA Morphine Sulfate (Morphine Sulfate 4 Mg/Ml Cartridge) 2 mg IVPUSH Q4H PRN; Protocol PRN Reason: Pain, Severe (Pain Scale 7-10) Last Admin: 08/16/22 07:56 Dose: 2 mg Documented By: LELO Omeprazole (Omeprazole 40 Mg Capsule.) 40 mg PO BID@0630,1630 [facility] Last Admin: 08/20/22 06:06 Dose: 40 mg Documented By: CINDI Ondansetron HCl (Ondansetron Hcl 4 Mg/2 Ml Vial) 4 mg IVPUSH Q8H PRN PRN Reason: Nausea and Vomiting Last Admin: 08/16/22 02:34 Dose: 4 mg Documented By: CHRISTA Oxycodone HCl (Oxycodone Hcl Immed Release 5 Mg Tablet) 5 mg PO Q4H PRN PRN Reason: Pain, Moderate (Pain Scale 4-6 Last Admin: 08/17/22 05:03 Dose: 5 mg Documented By: MARLON Pregabalin (Pregabalin 25 Mg Capsule) 25 mg PO BID [facility] Last Admin: 08/20/22 09:12 Dose: 25 mg Documented By: ESPERANZA Simethicone (Simethicone 80 Mg Tab.Chew) 80 mg PO QIDWMHS [facility] Last Admin: 08/20/22 09:13 Dose: 80 mg Documented By: ESPERANZA Sodium Chloride (0.9 % Sodium Chloride Flush 3 Ml Syringe) 3 ml IVFLUSH QSHIFT [facility] Last Admin: 08/20/22 09:14 Dose: 3 ml Documented By: ESPERANZA Spironolactone (Spironolactone 25 Mg Tablet) 50 mg PO BID@0900,1800 [facility]; Protocol Last Admin: 08/20/22 09:12 Dose: 50 mg Documented By: ESPERANZA Labs CBC & Chem 7: 08/18/22 06:17 08/19/22 06:06 Labs: Laboratory Results - last 24 hr 08/19/22 08/19/22 08/20/22 16:19 20:15 07:30 POC Glucose 253 H 154 H 126 H 08/20/22 11:09 POC Glucose 180 H Microbiology Microbiology Results: Microbiology 08/15/22 17:02 Gram Stain - Final Abdominal Fluid Routine Culture - Final No growth after 2 days Anaerobic Culture - Preliminary No growth to date. 08/17/22 23:31 Blood Culture - Preliminary Blood - Venous No growth after 48 hours. 08/17/22 23:31 Blood Culture - Preliminary Blood - Venous No growth after 48 hours. Assessment and Plan (1) Ascites: Status: Acute (2) Anasarca: Status: Acute Plan 56yo F with cirrhosis here with anasarca after missing scheduled paracentesis a week ago--recent hospitalization for hypoglycemia seizure, encephalopathy, gi bleeed # ascites due to cirrhosis s/p? paracenteses of 6L+ 4L with no evidence of SBP Seems to be recollecting again, to do paracentesis again tomorrow Continue lasix + increase aldactone to 50 Negative Hep B/C Received Albumin 25% x4 GI input appreciated , needs transplant but refused many times before Pending Nephrology consult for refractory ascites She might need to do a weekly abdominal tap to remove the extra fluids if she keeps collecting ascites # episodes of altered mentation Seems to be related to pseudoseizures more than real seizures No tonic clonic activities was seen, patient a lies white open during the episode but she is not responsive, recovers quickly with painful stimuli Ammonia level within normal, continue lactulose Improved, no recurrent incidence last 24 hours Brain MRI negative for any acute findings Recurrent orientation, pending psychiatry evaluation # insulin-dependent type 2 diabetes diabetic diet continue insulin glargine Humulin sliding scale # coagulopathy secondary to cirrhosis follow coags # hypotension secondary to cirrhosis increase midodrine to 10 mg 3 times daily # chronic normocytic anemia related to chronic disease H/H stable # pancytopenia secondary to cirrhosis DVT prophylaxis compression devices Patient requires ongoing inpatient stay for management of cirrhosis with reaccumulation of ascites requiring paracentesis, IV medications pending nephrology evaluation Time Spent With Patient Time: Total time managing care of this patient today ____ minutes. Quality Stroke Does the patient have a stroke diagnosis?: No VTE Prior VTE?: No VTE Risk Level:: Medical - low VTE Device Contraindication: Treatment Not Indicated VTE Drug Contraindication: Treatment Not Indicated
[2022-08-20] MEDS: Insulin Lispro 100 UNIT/ML 3 ML VIAL SUBCUT ×3 (12:06→21:27)
[2022-08-20] MEDS: cefTRIAXone sodium 1 GM in 0.9 % Sodium Chloride 50 ML IV (12:07)
[2022-08-20] MEDS: ondansetron HCL 4 MG/2 ML VIAL IVPUSH (13:26)
[2022-08-20] MEDS: Azithromycin 500 MG in 0.9 % Sodium Chloride 250 ML 125 MG IV (13:26)
[2022-08-20] MEDS: oxyCODONE HCl Immed Release 5 MG TABLET PO (13:26)
[2022-08-20] MEDS: LORazepam 1 MG TABLET PO (15:55)
[2022-08-20 16:02] LABS: Glucose, Whole Blood 214 mg/dL (60-115)
[2022-08-20] MEDS: iohexoL 350 MG/ML 100 ML INFUS..BTL IV (17:30)
[2022-08-20 17:46] LABS: Glucose, Whole Blood 204 mg/dL (60-115)
[2022-08-20] MEDS: Spironolactone 25 MG TABLET 75 MG PO (18:52)
[2022-08-20] MEDS: Furosemide 40 MG TABLET PO (19:27)
[2022-08-20 19:32] LABS: Glucose, Whole Blood 182 mg/dL (60-115)
[2022-08-20] MEDS: Lactulose 20 GM/30 ML SOLUTION 30 GM PO (20:16)
[2022-08-21] MEDS: 0.9 % Sodium Chloride Flush 3 ML SYRINGE IVFLUSH ×4 (00:08→20:01)
[2022-08-21 03:55] VITALS: BP 100/55; PULSE 76; RESP 20; TEMP 36.4; O2SAT 98
[2022-08-21 06:52] LABS: INTERNATIONAL NORM RATIO 1.4 (0.9-1.1); Prothrombin Time 16.4 SEC (10.0-13.1)
[2022-08-21 06:59] LABS: Anion Gap 8 (12-20); Blood Urea Nitrogen 9 mg/dL (9-16); Calcium 8.1 mg/dL (8.4-10.2); Carbon Dioxide 30 mmol/L (22-29); Chloride 105 mmol/L (96-108); Creatinine Clr Calc Pharmacy 74.2; Estimated Glomerular Filt Rate > 60; Glucose Random 197 mg/dL (60-115); Potassium 3.6 mmol/L (3.3-5.1); Sodium 139 mmol/L (135-145)
[2022-08-21 07:10] VITALS: BP 97/54; PULSE 77; RESP 20; TEMP 36.5; O2SAT 96
[2022-08-21 07:22] LABS: Glucose, Whole Blood 192 mg/dL (60-115)
[2022-08-21] MEDS: Albumin Human 25 % 100 ML IV ×3 (08:11→23:54)
[2022-08-21] MEDS: Midodrine HCl 10 MG TABLET PO ×3 (08:12→17:15)
[2022-08-21] MEDS: Insulin Glargine,Hum.rec.anlog 100 UNIT/ML 10 ML VIAL 25 UNIT SUBCUT (08:12)
[2022-08-21 09:51] LABS: Appearance Urine Clear; Color Urine Yellow; Glucose Urine UA Negative (Negative); Leukocyte Esterase Urine Small (1+) (Negative); Nitrite Urine Negative (Negative); PH 6.5 (5.0-9.0); Specific Gravity - Urine >= 1.030 (1.005-1.025); UMIC TRIGGER UACC YES; Urine Blood Negative (Negative); Urine Ketones Negative (Negative); Urine Protein Negative (Neg-Trace)
[2022-08-21 10:03] LABS: Bacteria Urine None Seen (None Seen); Hyaline Casts Urine 0-2 /LPF (0-2); UACC Culture Trigger YES
[2022-08-21] MEDS: Lidocaine HCl 1 % MPF 5 ML VIAL 10 ML SUBCUT (10:30)
[2022-08-21 11:06] LABS: Glucose, Whole Blood 136 mg/dL (60-115)
[2022-08-21 11:09] VITALS: BP 96/52; PULSE 76; RESP 18; TEMP 36.4; O2SAT 94
--- NOTE | 2022-08-21 11:33 | PM.PNNEP ---
Subjective Subjective Date of Service: 08/21/22 Interval history: seen and examined Physical Exam Vital Signs: Vital Signs: Last Vital Signs Temp 97.6 F 08/21/22 11:09 Pulse 76 08/21/22 11:09 Resp 18 08/21/22 11:09 BP 96/52 L 08/21/22 11:09 Pulse Ox 94 08/21/22 11:09 O2 Del Method 08/21/22 11:09 O2 Flow Rate 96 08/16/22 20:11 BMI result Body Mass Index 29.1 Objective Data Labs CBC & Chem 7: 08/18/22 06:17 08/21/22 06:19 Labs: Laboratory Results - last 24 hr 08/20/22 08/20/22 08/20/22 15:59 17:41 19:28 PT INR Sodium Potassium Chloride Carbon Dioxide Anion Gap BUN Creatinine Estim Creat Clear Calc Estimated GFR POC Glucose 214 H 204 H 182 H Random Glucose Calcium Urine Color Urine Appearance Urine pH Ur Specific [place] Urine Protein Urine Glucose (UA) Urine Ketones Urine Blood Urine Nitrite Ur Leukocyte Esterase Urine RBC Urine WBC Ur Squamous Epith Cells Urine Bacteria Hyaline Casts Urine Yeast 08/21/22 08/21/22 08/21/22 06:19 06:19 07:15 PT 16.4 H INR 1.4 H Sodium 139 Potassium 3.6 Chloride 105 Carbon Dioxide 30 H Anion Gap 8 L BUN 9 Creatinine 0.86 Estim Creat Clear Calc 74.2 Estimated GFR > 60 POC Glucose 192 H Random Glucose 197 H Calcium 8.1 L Urine Color Urine Appearance Urine pH Ur Specific [place] Urine Protein Urine Glucose (UA) Urine Ketones Urine Blood Urine Nitrite Ur Leukocyte Esterase Urine RBC Urine WBC Ur Squamous Epith Cells Urine Bacteria Hyaline Casts Urine Yeast 08/21/22 08/21/22 09:28 11:02 PT INR Sodium Potassium Chloride Carbon Dioxide Anion Gap BUN Creatinine Estim Creat Clear Calc Estimated GFR POC Glucose 136 H Random Glucose Calcium Urine Color Yellow Urine Appearance Clear Urine pH 6.5 Ur Specific [place] >= 1.030 H Urine Protein Negative Urine Glucose (UA) Negative Urine Ketones Negative Urine Blood Negative Urine Nitrite Negative Ur Leukocyte Esterase Small (1+) H Urine RBC 3-5 H Urine WBC 11-20 H Ur Squamous Epith Cells 3-5 Urine Bacteria None Seen Hyaline Casts 0-2 Urine Yeast Present Microbiology Microbiology Results: Microbiology 08/15/22 17:02 Abdominal Fluid Gram Stain - Final 08/15/22 17:02 Abdominal Fluid Routine Culture - Final No growth after 2 days 08/15/22 17:02 Abdominal Fluid Anaerobic Culture - Final NO GROWTH AFTER 5 DAYS 08/15/22 14:01 Blood - Venous Blood Culture - Final No growth after 5 days. 08/15/22 13:42 Blood - Venous Blood Culture - Final No growth after 5 days. 08/17/22 23:31 Blood - Venous Blood Culture - Preliminary No growth after 48 hours. 08/17/22 23:31 Blood - Venous Blood Culture - Preliminary No growth after 48 hours. 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 Progress Note: Quality Stroke Does the patient have a stroke diagnosis?: No
[2022-08-21] MEDS: Azithromycin 500 MG in 0.9 % Sodium Chloride 250 ML 125 MG IV (11:53)
[2022-08-21] MEDS: Simethicone 80 MG TAB.CHEW PO ×3 (11:53→20:01)
[2022-08-21] MEDS: Pregabalin 25 MG CAPSULE PO ×2 (11:53→20:01)
--- NOTE | 2022-08-21 12:27 | P.PNIM_ITS ---
Subjective Subjective Date of Service: 08/21/22 Interval History: Seen and evaluated this morning Abdomen is more distended, generalized vague pain Less anxious, more relaxed this morning no reported abnormal movement or altered mentation events for the last 2 days No fever but has some chills Review of Systems Review of Systems: Yes all other systems are reviewed and are negative Physical Exam Vital Signs: Vital Signs: Last Vital Signs Temp 97.6 F 08/21/22 11:09 Pulse 76 08/21/22 11:09 Resp 18 08/21/22 11:09 BP 96/52 L 08/21/22 11:09 Pulse Ox 94 08/21/22 11:09 O2 Del Method 08/21/22 11:09 O2 Flow Rate 96 08/16/22 20:11 BMI result Body Mass Index 29.1 Const: Other: Constitutional : Awake, interactive upon stimulation, not in distress Neck : Normal inspection, Supple Cardiovascular : RRR, no JVP, no lower extremity edema Respiratory : good bilateral air entry, no crackles, wheezes or rhonchi Gastrointestinal: soft, lax, Normal bowel sounds, distended is significantly with moderate amount of ascites, generalized vague tenderness with no surgical signs Skin : Warm, Dry Neurological : Alert & oriented to self and place, No focal deficit Objective Data Active Medications Calcium Carbonate (Calcium Carbonate 750 Mg Tab.Chew) 750 mg PO Q4H PRN PRN Reason: Heartburn Last Admin: 08/19/22 16:39 Dose: 750 mg Documented By: ISATU Dextrose (Dextrose 50 % 25 Gm/50 Ml Syringe) 25 gm IVPUSH Q15M PRN; Protocol PRN Reason: per Hypoglycemia Standing Ord. Furosemide (Furosemide 40 Mg Tablet) 40 mg PO BID@0900,1800 [facility]; Protocol Last Admin: 08/21/22 11:33 Dose: Not Given Documented By: TAMRA Non-Admin Reason: NPO Glucose (Glucose Gel 15 Gm Gel..Gram.) 15 gm PO Q15M PRN; Protocol PRN Reason: per Hypoglycemia Standing Ord. Ceftriaxone Sodium 1 gm/ (Sodium Chloride) 50 mls @ 100 mls/hr IV Q24H [facility] Last Infusion: 08/20/22 13:20 Dose: 0 mls/hr Documented By: ESPERANZA Azithromycin 500 mg/ Sodium (Chloride) 250 mls @ 125 mls/hr IV Q24H [facility] Last Admin: 08/21/22 11:53 Dose: 125 mls/hr Documented By: TAMRA Albumin Human (Kedbumin 25 %) 100 mls @ 100 mls/hr IV Q6H [facility] Stop: 08/22/22 02:44 Last Infusion: 08/21/22 09:12 Dose: 0 mls/hr Documented By: TAMRA Insulin Glargine (Insulin Glargine,Hum.Rec.Anlog 100 Unit/Ml 10 Ml Vial) 25 unit SUBCUT DAILY [facility] Last Admin: 08/21/22 08:12 Dose: 25 unit Documented By: TAMRA Insulin Human Lispro (Insulin Lispro 100 Unit/Ml 3 Ml Vial) 0 unit SUBCUT QIDAC [facility]; Protocol Last Admin: 08/21/22 12:01 Dose: Not Given Documented By: TAMRA Non-Admin Reason: No Insulin Coverage Lactulose (Lactulose 20 Gm/30 Ml Solution) 30 gm PO TID [facility] Last Admin: 08/21/22 08:19 Dose: Not Given Documented By: TAMRA Non-Admin Reason: NPO Melatonin (Melatonin 3 Mg Tablet) 6 mg PO BEDTIME PRN PRN Reason: Insomnia Last Admin: 08/16/22 02:34 Dose: 6 mg Documented By: DEMETRIO-MATTHEWICL Midodrine (Midodrine Hcl 10 Mg Tablet) 10 mg PO TIDWM [facility] Last Admin: 08/21/22 11:53 Dose: 10 mg Documented By: TAMRA Omeprazole (Omeprazole 40 Mg Capsule.) 40 mg PO BID@0630,1630 [facility] Last Admin: 08/21/22 05:29 Dose: Not Given Documented By: ANA Non-Admin Reason: NPO Ondansetron HCl (Ondansetron Hcl 4 Mg/2 Ml Vial) 4 mg IVPUSH Q8H PRN PRN Reason: Nausea and Vomiting Last Admin: 08/20/22 13:26 Dose: 4 mg Documented By: ESPERANZA Pregabalin (Pregabalin 25 Mg Capsule) 25 mg PO BID [facility] Last Admin: 08/21/22 11:53 Dose: 25 mg Documented By: TAMRA Simethicone (Simethicone 80 Mg Tab.Chew) 80 mg PO QIDWMHS [facility] Last Admin: 08/21/22 11:53 Dose: 80 mg Documented By: TAMRA Sodium Chloride (0.9 % Sodium Chloride Flush 3 Ml Syringe) 3 ml IVFLUSH QSHIFT [facility] Last Admin: 08/21/22 08:19 Dose: 3 ml Documented By: TAMRA Spironolactone (Spironolactone 25 Mg Tablet) 75 mg PO BID@0900,1800 [facility]; Protocol Last Admin: 08/21/22 11:33 Dose: Not Given Documented By: TAMRA Non-Admin Reason: NPO Labs CBC & Chem 7: 08/18/22 06:17 08/21/22 06:19 Labs: Laboratory Results - last 24 hr 08/20/22 08/20/22 08/20/22 15:59 17:41 19:28 PT INR Anion Gap Estim Creat Clear Calc Estimated GFR POC Glucose 214 H 204 H 182 H Random Glucose Calcium Urine Color Urine Appearance Urine pH Ur Specific [place] Urine Protein Urine Glucose (UA) Urine Ketones Urine Blood Urine Nitrite Ur Leukocyte Esterase Urine RBC Urine WBC Ur Squamous Epith Cells Urine Bacteria Hyaline Casts Urine Yeast 08/21/22 08/21/22 08/21/22 06:19 06:19 07:15 PT 16.4 H INR 1.4 H Anion Gap 8 L Estim Creat Clear Calc 74.2 Estimated GFR > 60 POC Glucose 192 H Random Glucose 197 H Calcium 8.1 L Urine Color Urine Appearance Urine pH Ur Specific [place] Urine Protein Urine Glucose (UA) Urine Ketones Urine Blood Urine Nitrite Ur Leukocyte Esterase Urine RBC Urine WBC Ur Squamous Epith Cells Urine Bacteria Hyaline Casts Urine Yeast 08/21/22 08/21/22 09:28 11:02 PT INR Anion Gap Estim Creat Clear Calc Estimated GFR POC Glucose 136 H Random Glucose Calcium Urine Color Yellow Urine Appearance Clear Urine pH 6.5 Ur Specific [place] >= 1.030 H Urine Protein Negative Urine Glucose (UA) Negative Urine Ketones Negative Urine Blood Negative Urine Nitrite Negative Ur Leukocyte Esterase Small (1+) H Urine RBC 3-5 H Urine WBC 11-20 H Ur Squamous Epith Cells 3-5 Urine Bacteria None Seen Hyaline Casts 0-2 Urine Yeast Present Microbiology Microbiology Results: Microbiology 08/15/22 17:02 Gram Stain - Final Abdominal Fluid Routine Culture - Final No growth after 2 days Anaerobic Culture - Final NO GROWTH AFTER 5 DAYS 08/15/22 14:01 Blood Culture - Final Blood - Venous No growth after 5 days. 08/15/22 13:42 Blood Culture - Final Blood - Venous No growth after 5 days. Assessment and Plan (1) Liver cirrhosis: Status: Acute (2) Ascites: Status: Acute Plan 56yo F with cirrhosis here with anasarca after missing scheduled paracentesis a week ago--recent hospitalization for hypoglycemia seizure, encephalopathy, gi bleeed # ascites due to cirrhosis s/p? paracenteses of 6L+ 4L with no evidence of SBP Paracentesis done again today, 5.5 L removed Increase lasix to 80 b.i.d. + increase aldactone to 75 Negative Hep B/C To give Albumin 25% x4 GI input appreciated , to discuss the need of transplant with the patient who agrees, will need referral to [facility] liver transplant Pending Nephrology consult for refractory ascites She might need to do a weekly abdominal tap to remove the extra fluids if she keeps collecting ascites # episodes of altered mentation No episodes for last 2 days Seems to be related to pseudoseizures more than real seizures No tonic clonic activities was seen, patient a lies white open during the episode but she is not responsive, recovers quickly with painful stimuli Brain MRI negative for any acute findings Recurrent orientation, pending psychiatry evaluation # insulin-dependent type 2 diabetes diabetic diet continue insulin glargine Humulin sliding scale # coagulopathy secondary to cirrhosis follow coags # hypotension secondary to cirrhosis increase midodrine to 10 mg 3 times daily # chronic normocytic anemia related to chronic disease H/H stable # pancytopenia secondary to cirrhosis DVT prophylaxis compression devices Patient requires ongoing inpatient stay for management of cirrhosis with reaccumulation of ascites requiring paracentesis, IV medications pending safe discharge plan Time Spent With Patient Time: Total time managing care of this patient today ____ minutes. Quality Stroke Does the patient have a stroke diagnosis?: No VTE Prior VTE?: No VTE Risk Level:: Medical - low VTE Device Contraindication: Treatment Not Indicated VTE Drug Contraindication: Treatment Not Indicated
--- NOTE | 2022-08-21 14:43 | P.PNGI_ITS ---
Subjective Subjective Date of Service: 08/21/22 Interval History: abdomen feels better after paracentesis c/o pain at R antecubital iv site Critical Care Time (minutes): 0 Physical Exam Vital Signs: Vital Signs: Last Vital Signs Temp 97.6 F 08/21/22 11:09 Pulse 76 08/21/22 11:09 Resp 18 08/21/22 11:09 BP 96/52 L 08/21/22 11:09 Pulse Ox 94 08/21/22 11:09 O2 Del Method 08/21/22 11:09 O2 Flow Rate 96 08/16/22 20:11 BMI result Body Mass Index 29.1 GI: Other: abdomen is soft, without tenderness Extrem: Other: traace edema Objective Data Labs CBC & Chem 7: 08/18/22 06:17 08/21/22 06:19 Labs: Laboratory Results - last 24 hr 08/20/22 08/20/22 08/20/22 15:59 17:41 19:28 PT INR Sodium Potassium Chloride Carbon Dioxide Anion Gap BUN Creatinine Estim Creat Clear Calc Estimated GFR POC Glucose 214 H 204 H 182 H Random Glucose Calcium Urine Color Urine Appearance Urine pH Ur Specific [place] Urine Protein Urine Glucose (UA) Urine Ketones Urine Blood Urine Nitrite Ur Leukocyte Esterase Urine RBC Urine WBC Ur Squamous Epith Cells Urine Bacteria Hyaline Casts Urine Yeast 08/21/22 08/21/22 08/21/22 06:19 06:19 07:15 PT 16.4 H INR 1.4 H Sodium 139 Potassium 3.6 Chloride 105 Carbon Dioxide 30 H Anion Gap 8 L BUN 9 Creatinine 0.86 Estim Creat Clear Calc 74.2 Estimated GFR > 60 POC Glucose 192 H Random Glucose 197 H Calcium 8.1 L Urine Color Urine Appearance Urine pH Ur Specific [place] Urine Protein Urine Glucose (UA) Urine Ketones Urine Blood Urine Nitrite Ur Leukocyte Esterase Urine RBC Urine WBC Ur Squamous Epith Cells Urine Bacteria Hyaline Casts Urine Yeast 08/21/22 08/21/22 09:28 11:02 PT INR Sodium Potassium Chloride Carbon Dioxide Anion Gap BUN Creatinine Estim Creat Clear Calc Estimated GFR POC Glucose 136 H Random Glucose Calcium Urine Color Yellow Urine Appearance Clear Urine pH 6.5 Ur Specific [place] >= 1.030 H Urine Protein Negative Urine Glucose (UA) Negative Urine Ketones Negative Urine Blood Negative Urine Nitrite Negative Ur Leukocyte Esterase Small (1+) H Urine RBC 3-5 H Urine WBC 11-20 H Ur Squamous Epith Cells 3-5 Urine Bacteria None Seen Hyaline Casts 0-2 Urine Yeast Present Microbiology Microbiology Results: Microbiology 08/15/22 17:02 Abdominal Fluid Gram Stain - Final 08/15/22 17:02 Abdominal Fluid Routine Culture - Final No growth after 2 days 08/15/22 17:02 Abdominal Fluid Anaerobic Culture - Final NO GROWTH AFTER 5 DAYS 08/15/22 14:01 Blood - Venous Blood Culture - Final No growth after 5 days. 08/15/22 13:42 Blood - Venous Blood Culture - Final No growth after 5 days. 08/17/22 23:31 Blood - Venous Blood Culture - Preliminary No growth after 48 hours. 08/17/22 23:31 Blood - Venous Blood Culture - Preliminary No growth after 48 hours. Procedures Date of Service Date of Service: 08/21/22 Progress Note: A&P Assessment and plan (1) Liver cirrhosis: Status: Acute Assessment and Plan: s/p 5.5L paracentesis diuretics adjusted per renal advised patient on limiting salt intake and fluids. continue present management. paracentesis ma by repeated prn for discomfort. Time Spent With Patient Time: Total time managing care of this patient today ____ minutes. Quality Stroke Does the patient have a stroke diagnosis?: No VTE Prior VTE?: No VTE Risk Level:: Medical - low VTE Device Contraindication: Treatment Not Indicated VTE Drug Contraindication: Treatment Not Indicated
--- NOTE | 2022-08-21 14:51 | MHC.CLN ---
RE: CONSULT REQUEST FOR HIGH PROTEIN DIET WILL ADD ENSURE MAX BID TO INCREASE PO PROTEIN SUPP TO PROVIDE 300KCALS, 60G PROTEIN WITH 100% ACCEPTANCE MONITOR PO
--- NOTE | 2022-08-21 14:58 | P.CDIC_ITS ---
CDI Concurrent Query Documentation Clarification: PHYSICIAN'S DOCUMENTATION REQUEST Date of Query: 08/21/22 1458 Patient Name: Alison Peck Admit Date: 08/15/22 Dear Doctor, A review of the medical record indicates additional documentation may be needed. Please review below and update the documentation accordingly. Clinical Indicators: Is there a diagnosis that correlates with these lab findings below: Risk Factors/Clinical Indicators/Treatments Labs: Albumin on 08/17: 2.6 Per provider progress note on 08/19: Received Albumin 25% x4 Based on the above, could you clarify in the Progress Notes the appropriate diagnosis, if significant, that supports the above abnormalities and additional evaluation, monitoring, and/or treatment rendered: * Hypoalbuminemia * Other (please specify) * Unable to determine Use of terms such as suspected, likely, concern for, or probable (associated with a specific diagnosis that is being evaluated, monitored, or treated as if it exists) are acceptable and can be coded in the inpatient setting, when documented at the time of discharge. Thank you, Eusebia House MS, RN, CCRN Extension: [phone] Please use your independent medical judgment in providing your response. THIS QUERY IS PART OF THE PERMANENT MEDICAL RECORD Provider Response: Other Other Diagnosis: Hypoalbuminemia
--- NOTE | 2022-08-21 15:05 | P.CDIC_ITS ---
CDI Concurrent Query Documentation Clarification: PHYSICIAN'S DOCUMENTATION REQUEST Date of Query: 08/21/22 1505 Patient Name: Alison Peck Admit Date: 08/15/22 Dear Doctor, A review of the medical record indicates additional documentation may be needed. Please review below and update the documentation accordingly. Clinical Indicators: Is there a diagnosis that correlates with the findings below: Risk Factors/Clinical Indicators/Treatments POA/RESOLVED/TREAT/RULE OUT Per provider progress note on 08/17: Recurrent episodes of altered mentation Per provider H&P: recent hospitalization for hypoglycemia seizure, encephalopathy, gi bleeed Per RN shift assessments: Patient disoriented to time, situation, place, and is lethargic, confused, drowsy, forgetful, & vague. Per RN note: Patient is very lethargic, barely any response to sternal rub. Based on the above, could you clarify in the Progress Notes which, if any of the following, is the most likely etiology of the confusion/altered mental status? * Encephalopathy is/was present - indicate type such as metabolic, toxic, septic, alcoholic, hypertensive, etc. * Encephalopathy has been ruled out * Other etiology (please specify) * Unable to determine Use of terms such as suspected, likely, concern for, or probable (associated with a specific diagnosis that is being evaluated, monitored, or treated as if it exists) are acceptable and can be coded in the inpatient setting, when documented at the time of discharge. Thank you, Eusebia House MS, RN, CCRN Extension: [phone] Please use your independent medical judgment in providing your response. THIS QUERY IS PART OF THE PERMANENT MEDICAL RECORD Provider Response: Other Other Diagnosis: Metabolic encephalopathy was present
[2022-08-21 15:26] VITALS: BP 93/55; PULSE 72; RESP 17; TEMP 36.4; O2SAT 91
[2022-08-21 15:32] LABS: Glucose, Whole Blood 256 mg/dL (60-115)
[2022-08-21] MEDS: Omeprazole 40 MG CAPSULE.DR PO (17:15)
[2022-08-21] MEDS: Insulin Lispro 100 UNIT/ML 3 ML VIAL SUBCUT ×2 (17:15→20:16)
[2022-08-21] MEDS: cefTRIAXone sodium 1 GM in 0.9 % Sodium Chloride 50 ML IV (17:16)
[2022-08-21 19:35] VITALS: BP 94/55; PULSE 84; RESP 17; TEMP 37.2; O2SAT 96
[2022-08-21] MEDS: Lactulose 20 GM/30 ML SOLUTION 30 GM PO (20:01)
[2022-08-21 20:06] LABS: Glucose, Whole Blood 392 mg/dL (60-115)
[2022-08-21] MEDS: Furosemide 40 MG TABLET 80 MG PO (20:16)
[2022-08-21 21:56] VITALS: BP 93/50; PULSE 90
[2022-08-22 00:08] VITALS: BP 95/50; PULSE 91; RESP 20; TEMP 37; O2SAT 95
--- NOTE | 2022-08-22 00:13 | PC.NURSE ---
At change of shift in report day nurse stated pt's BP was running low and told him to stagger the Lasix and Aldactone after pt receives Albumin. After Albumin infused, BP 94/55, Lasix given around 20:16. Recheck of BP at 21:56 93/50. Dr Thomson notified and told to hold the Aldactone. Will continue to monitor.
[2022-08-22 05:00] VITALS: BP 98/52; PULSE 81; RESP 18; TEMP 36.2; O2SAT 95
[2022-08-22] MEDS: Albumin Human 25 % 100 ML IV (06:00)
[2022-08-22] MEDS: Omeprazole 40 MG CAPSULE.DR PO (06:00)
[2022-08-22 07:20] LABS: INTERNATIONAL NORM RATIO 1.5 (0.9-1.1)
[2022-08-22 07:32] LABS: Glucose, Whole Blood 168 mg/dL (60-115)
[2022-08-22 07:34] LABS: Anion Gap 9 (12-20); Blood Urea Nitrogen 9 mg/dL (9-16); Calcium 8.2 mg/dL (8.4-10.2); Carbon Dioxide 29 mmol/L (22-29); Chloride 103 mmol/L (96-108); Creatinine Clr Calc Pharmacy 74.2; Estimated Glomerular Filt Rate > 60; Glucose Random 203 mg/dL (60-115); Potassium 3.7 mmol/L (3.3-5.1); Sodium 137 mmol/L (135-145)
[2022-08-22 07:45] LABS: Alanine Aminotransferase 7 U/L (0-31); Alkaline Phosphatase 91 U/L (39-117); Aspartate Amino Transferase 16 U/L (5-31); Bilirubin Direct 0.4 mg/dL (0.0-0.5); Bilirubin Total 0.9 mg/dL (0.0-1.0); Total Protein 5.4 g/dL (6.5-8.0)
[2022-08-22] MEDS: Pregabalin 25 MG CAPSULE PO (07:48)
[2022-08-22] MEDS: Simethicone 80 MG TAB.CHEW PO ×2 (07:48→11:41)
[2022-08-22] MEDS: Insulin Glargine,Hum.rec.anlog 100 UNIT/ML 10 ML VIAL 25 UNIT SUBCUT (07:49)
[2022-08-22] MEDS: Insulin Lispro 100 UNIT/ML 3 ML VIAL SUBCUT ×2 (07:49→11:41)
[2022-08-22] MEDS: 0.9 % Sodium Chloride Flush 3 ML SYRINGE IVFLUSH (07:50)
[2022-08-22] MEDS: Midodrine HCl 10 MG TABLET PO ×2 (08:00→11:41)
[2022-08-22 08:43] VITALS: BP 96/55
[2022-08-22] MEDS: Furosemide 40 MG TABLET PO (10:00)
[2022-08-22] MEDS: Spironolactone 25 MG TABLET PO (10:03)
[2022-08-22 11:24] VITALS: BP 89/60; PULSE 80; RESP 12; TEMP 36.1; O2SAT 99
[2022-08-22 11:33] LABS: Glucose, Whole Blood 292 mg/dL (60-115)
--- NOTE | 2022-08-22 11:38 | PM.PNNEP ---
Subjective Subjective Date of Service: 08/22/22 Interval history: seen and examined s/p paracentesis no complaints Physical Exam Vital Signs: Vital Signs: Last Vital Signs Temp 96.9 F 08/22/22 11:24 Pulse 80 08/22/22 11:24 Resp 12 08/22/22 11:24 BP 89/60 L 08/22/22 11:24 Pulse Ox 99 08/22/22 11:24 O2 Del Method 08/22/22 11:24 O2 Flow Rate 96 08/16/22 20:11 BMI result Body Mass Index 29.1 Const: General: alert and awake HEENT: Head: Yes normocephalic and Yes atraumatic Neck: Neck: Yes supple Resp: Auscultation: clear to auscultation bilaterally Cardio: Heart sounds: S1 normal heart sound present and S2 normal heart sound present GI: Palpation (GI): Soft to palpation and nontender Extrem: General: Yes edema Objective Data Labs CBC & Chem 7: 08/18/22 06:17 08/22/22 06:26 Labs: Laboratory Results - last 24 hr 08/21/22 08/21/22 08/22/22 15:28 20:02 06:26 PT INR Sodium 137 Potassium 3.7 Chloride 103 Carbon Dioxide 29 Anion Gap 9 L BUN 9 Creatinine 0.86 Estim Creat Clear Calc 74.2 Estimated GFR > 60 POC Glucose 256 H 392 H* Random Glucose 203 H Calcium 8.2 L Total Bilirubin 0.9 Direct Bilirubin 0.4 AST 16 ALT 7 Alkaline Phosphatase 91 Total Protein 5.4 L Albumin 3.0 L 08/22/22 08/22/22 08/22/22 06:26 06:26 07:25 PT 17.0 H INR 1.5 H Sodium Potassium Chloride Carbon Dioxide Anion Gap BUN Creatinine Estim Creat Clear Calc Estimated GFR POC Glucose 168 H Random Glucose Calcium Total Bilirubin Cancelled Direct Bilirubin Cancelled AST Cancelled ALT Cancelled Alkaline Phosphatase Cancelled Total Protein Cancelled Albumin Cancelled 08/22/22 11:23 PT INR Sodium Potassium Chloride Carbon Dioxide Anion Gap BUN Creatinine Estim Creat Clear Calc Estimated GFR POC Glucose 292 H Random Glucose Calcium Total Bilirubin Direct Bilirubin AST ALT Alkaline Phosphatase Total Protein Albumin Microbiology Microbiology Results: Microbiology 08/21/22 09:28 Urine clean catch - Urine henderson top Urine Culture - Final 08/15/22 17:02 Abdominal Fluid Gram Stain - Final 08/15/22 17:02 Abdominal Fluid Routine Culture - Final No growth after 2 days 08/15/22 17:02 Abdominal Fluid Anaerobic Culture - Final NO GROWTH AFTER 5 DAYS 08/15/22 14:01 Blood - Venous Blood Culture - Final No growth after 5 days. 08/15/22 13:42 Blood - Venous Blood Culture - Final No growth after 5 days. 08/17/22 23:31 Blood - Venous Blood Culture - Preliminary No growth after 48 hours. 08/17/22 23:31 Blood - Venous Blood Culture - Preliminary No growth after 48 hours. 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 Progress Note: Quality Stroke Does the patient have a stroke diagnosis?: No
--- NOTE | 2022-08-22 13:06 | MHC.CM.PN ---
Patient has not yet been medically cleared for dc today (IV Azithromycin, IV Ceftriaxone); home/resume VNA is the goal and CM will continue to follow.
--- NOTE | 2022-08-22 13:30 | PM.DS ---
DS: Providers Provider Date of Service: 08/22/22 Date of admission: 08/15/22 19:07 Primary care physician: Eden Carrillo MD Consults: 08/16/22 16:44 Consult to Gastroenterology Routine Consulting Provider: Tre Yadav Reason for consultation: cirrhosis, ascites 08/17/22 17:09 Consult to Neurology Routine Consulting Provider: [facility] Reason for consultation: unresponsive ? seizure Has provider been notified: No 08/18/22 12:56 Consult to Nephrology Routine Consulting Provider: Geremias Petersen Reason for consultation: refractory ascites for eval and rec. 08/19/22 10:23 Consult to Psychiatry Routine Consulting Provider: Psych Covering Reason for consultation: recurrent episode of AMS, pseudoseizures, more frequent, increased anxiety DS: Diagnosis Discharge Diagnosis (1) Liver cirrhosis: Status: Acute (2) Ascites: Status: Acute (3) Anasarca: Status: Acute DS: Summary Hospital Course Hospital Course: from initial hpi: 56-year-old female with past medical history of liver cirrhosis, diabetes, HTN, recent admission to our facility for toxic metabolic encephalopathy due to hypoglycemia in the setting of cryptogenic liver cirrhosis, new onset seizure and GI bleed requiring transfusion and ICU level of care at that time. She comes in today? to the ED incremental? abdominal pain,? bloating, lightheadedness and nausea x2 days.?? She denies fever, seizure. She was scheduled for therapeutic paracentesis last saturday but she cancelled this according to? IR. Her abdominal was quite distentended on presentation along with marked swelling of the legs. She has had a 6 liter ascietes removal via paracentesis, she's still complaning of pain.? Ascietes fluid analysis is Not consistent with SBP hospital course: Patient was admitted due to symptomatic ascites from her cryptogenic cirrhosis. Throughout hospitalization she underwent a total 10.5 L across 3 paracenteses. No evidence of SBP. She was given albumin with paracenteses, midodrine was increased to 10 mg t.i.d. due to relative hypotension. Lasix was started at 40 mg b.i.d. and spironolactone increased to 25 mg b.i.d., higher doses were not tolerated. Patient is now agreeable for referral to liver transplant which she will pursue as outpatient. She will follow up closely for routine elective paracentesis and GI. During hospitalization patient had episodes of altered mentation recovered quickly, MRI of the brain was negative on previous admission EEG was negative. For diabetes she was continued on basal bolus insulin. Her pancytopenia is due to cirrhosis. Patient is feeling better will be discharged home. Time Spent with Patient Time attestation: Total time managing care of this patient today ____ minutes. Discharge coordination time: Greater than 30 minutes Quality: Safe Use of Opioids Does Pt have an Active Cancer Diagnosis on the Problem List?: No Quality: Stroke Does the patient have a stroke diagnosis?: No Physical Exam Vital Signs: Vital Signs: Last Vital Signs Temp 96.9 F 08/22/22 11:24 Pulse 80 08/22/22 11:24 Resp 12 08/22/22 11:24 BP 89/60 L 08/22/22 11:24 Pulse Ox 99 08/22/22 11:24 O2 Del Method 08/22/22 11:24 O2 Flow Rate 96 08/16/22 20:11 BMI result Body Mass Index 29.1 gi: distended but not tight or tender DS: Data Data Completed and Pending Completed studies during hospitalization [Text1]: Procedures Drainage of Peritoneal Cavity with Drainage Device, Percutaneous Approach (04/25/22) Drainage of Peritoneal Cavity, Percutaneous Approach (07/14/22) Excision of Stomach, Pylorus, Via Natural or Artificial Opening Endoscopic, Diagnostic (07/14/22) Insertion of Infusion Device into Right Brachial Vein, Percutaneous Approach (06/14/21) Transfusion of Nonautologous Red Blood Cells into Peripheral Vein, Percutaneous Approach (07/14/22) Labs on day of discharge: Laboratory Results - last 24 hr 08/21/22 08/21/22 08/22/22 15:28 20:02 06:26 PT INR Sodium 137 Potassium 3.7 Chloride 103 Carbon Dioxide 29 Anion Gap 9 L BUN 9 Creatinine 0.86 Estim Creat Clear Calc 74.2 Estimated GFR > 60 POC Glucose 256 H 392 H* Random Glucose 203 H Calcium 8.2 L Total Bilirubin 0.9 Direct Bilirubin 0.4 AST 16 ALT 7 Alkaline Phosphatase 91 Total Protein 5.4 L Albumin 3.0 L 08/22/22 08/22/22 08/22/22 06:26 06:26 07:25 PT 17.0 H INR 1.5 H Sodium Potassium Chloride Carbon Dioxide Anion Gap BUN Creatinine Estim Creat Clear Calc Estimated GFR POC Glucose 168 H Random Glucose Calcium Total Bilirubin Cancelled Direct Bilirubin Cancelled AST Cancelled ALT Cancelled Alkaline Phosphatase Cancelled Total Protein Cancelled Albumin Cancelled 08/22/22 11:23 PT INR Sodium Potassium Chloride Carbon Dioxide Anion Gap BUN Creatinine Estim Creat Clear Calc Estimated GFR POC Glucose 292 H Random Glucose Calcium Total Bilirubin Direct Bilirubin AST ALT Alkaline Phosphatase Total Protein Albumin Preliminary micro results at discharge 08/17/22 23:31 Blood Culture - Preliminary Blood - Venous No growth after 48 hours. 08/17/22 23:31 Blood Culture - Preliminary Blood - Venous No growth after 48 hours. Discharge Plan Discharge Anticipated Discharge Date/Time: 08/22/22 13:20 Patient Disposition: Home, Self-Care Discharge Diagnosis: symptomatic ascites Referrals: Mumtaz Khalil MD [Physician] - 1 Week (paracentesis ) Eden Han MD [Primary Care Provider] - 1 Week Tre Yadav [Physician] - 1 Week Discharge Medications: New furosemide 40 mg Tablet 40 mg PO BID@0900,1800 Qty: 60 0RF Protocol: Hold for SBP< HOLD for SBP < : 90 midodrine 10 mg Tablet 10 mg PO TIDWM Qty: 90 0RF lactulose 20 gram/30 mL Solution 30 g PO DAILY Qty: 1200 0RF Continued insulin glargine [Lantus Solostar U-100 Insulin] 100 unit/mL (3 mL) insulin pen 20 unit subcut DAILY omeprazole 40 mg Capsule,Delayed Release(Dr/Ec) 40 mg PO BID@0630,1630 Qty: 60 0RF pregabalin [Lyrica] 25 mg Capsule 25 mg PO BID Qty: 60 0RF carvedilol 3.125 mg tablet 1 tab PO BID insulin aspart U-100 [Novolog FlexPen U-100 Insulin] 100 unit/mL (3 mL) insulin pen See Protocol subcut TIDAC Protocol: Insulin Correction Scale Less than or equal to 110 ---- Give (units): 0 111 to 150 Give (units): 0 151 to 200 Give (units): 2 201 to 250 Give (units): 4 251 to 300 Give (units): 6 301 to 350 Give (units): 8 Greater than 350 Give (units): 10 Call MD if Blood Glucose > : 350 Changed spironolactone 25 mg Tablet 12.5 mg PO BID Qty: 30 0RF Protocol: Hold for SBP< HOLD for SBP < : 90 Discontinued midodrine 5 mg tablet 5 mg PO TIDWM Discharge Orders: Discharge Order (Routine); Ordered 08/22/22 Ordered By: Eliel Martinez Diet: Advance to usual diet Activity on Discharge: As tolerated Stand Alone Forms: Patient Portal Discharge page Care Plan Goals: manage liver cirrhosis Health Concerns: worsening cirrhosis Plan of Treatment: frequent elective paracenetesis, increase aldactone, start lasix, follow up with GI for referal for transplant Assessment: see above
--- NOTE | 2022-08-22 13:38 | MHC.CM.PN ---
Patient now has been medically cleared for dc to home today, self care. IMM addressed with Patient and family at bedside and original has been given to them and a copy has been placed on the chart.
--- NOTE | 2022-08-22 14:43 | CONS_ITS ---
DATE OF SERVICE: 08/22/2022 HISTORY OF PRESENT ILLNESS: I was asked to assist in management of this 56-year-old patient with a history of liver cirrhosis, who was admitted to the hospital with anasarca after missing a scheduled paracentesis. At the time of consultation, denies any chest pain or shortness of breath. She denies any nausea, vomiting, or diarrhea. She complains of worsening lower extremity edema and distended abdomen. PAST MEDICAL HISTORY: Remarkable for liver cirrhosis, diabetes mellitus, hypertension, history of recurrent urinary tract infection, portal hypertension, history of alcohol abuse. MEDICATIONS: Inpatient and outpatient reviewed. She is not on any medications. SOCIAL HISTORY: She has a history of alcohol abuse. FAMILY HISTORY: Negative for kidney disease. REVIEW OF SYSTEMS: 10-point review of system negative except pertaining to History of Present Illness. PHYSICAL EXAMINATION: VITAL SIGNS: Blood pressure is 196/52, heart rate 76, respiratory rate 18, temperature 97.6. CONSTITUTIONAL: Looks her stated age. No acute distress. NEUROLOGIC: Alert, awake. HEENT: Head is atraumatic and normocephalic. NECK: Supple. LUNGS: Good air entry bilaterally. CARDIOVASCULAR: S1, S2. No rub. ABDOMEN: Soft, nondistended. EXTREMITIES: Peripheral edema. LABORATORY DATA: Showed a white count 2.6, hemoglobin 9.1, platelet count 101. Sodium 139, potassium 3.6, chloride 105, CO2 of 30, BUN 9, creatinine 0.86. IMPRESSION: 1. Liver cirrhosis. 2. Ascites. 3. Anasarca. PLAN: This is a patient with underlying hepatorenal syndrome type 2 in the setting of diuretic resistant ascites. Her volume status appears to be above dry weight. I will increase her furosemide to 80 mg twice a day. Continue with spironolactone 75 mg twice a day. She remains on fluid restriction, low-sodium diet. We will continue to follow closely her kidney function and electrolytes. Thank you for allowing me to participate in the care of the patient. MD CELE Khan/MODL / [id number]
== END 2022-08-22 15:27 | disposition home or self-care (01) | DRG 432 ==
LOC: HO.ED 17:33 → HO.EDOVER 19:14 → HO.S3 08-16 19:25 → HO.IMC 08-17 17:46
PROVIDERS: Internal Medicine; Physician Assistant; Physician Assistant Medical; Radiology Diagnostic Radiology; Student in an Organized Health Care Education/Training Program; Admitting Provider Internal Medicine; Emergency Provider Student in an Organized Health Care Education/Training Program; PCP Internal Medicine; Visit Provider Internal Medicine
PROC: 0W9G3ZZ Drainage of Peritoneal Cavity, Percutaneous Approach (ICD-10-PCS; principal; 2022-08-17 15:30)
DX: K74.69 Other cirrhosis of liver (principal); G93.41 Metabolic encephalopathy; K76.7 Hepatorenal syndrome; D61.818 Other pancytopenia; D68.4 Acquired coagulation factor deficiency; R18.8 Other ascites; K76.0 Fatty (change of) liver, not elsewhere classified; E88.09 Other disorders of plasma-protein metabolism, not elsewhere classified; D63.8 Anemia in other chronic diseases classified elsewhere; I95.9 Hypotension, unspecified; R56.9 Unspecified convulsions; Z20.822 Contact with and (suspected) exposure to COVID-19; Z79.4 Long term (current) use of insulin; Z79.899 Other long term (current) drug therapy
CPT/HCPCS: 0241U; 36415; 49083; 70450; 70551; 71045; 74176; 74177; 76705; 80048; 80053; 80076; 81001; 82009; 82042; 82140; 82945; 82947; 83605; 83615; 83690; 83735; 83880; 84157; 84484; 85025; 85027; 85610; 85730; 86704; 86706; 86803; 87040; 87070; 87073; 87086; 87205; 87340; 89051; 93005; 99285; J0456; J0692; J0696; J1940; J2270; J2405; J3370; P9047; Q9967

== ENCOUNTER 2022-09-06 11:56 | Emergency (ER) | payer OTHER, SELFPAY ==
--- NOTE | ~2022-09-06 | US_ITS ---
EXAMINATION: ULTRASOUND-GUIDED PARACENTESIS. CLINICAL INFORMATION: Distended abdomen. Pain. Ascites. COMPARISON: None TECHNIQUE: Following explaining ultrasound-guided paracentesis procedure, benefits and risk, a written consent was obtained. Patient was placed supine on ultrasound stretcher and preliminary ultrasound imaging was obtained. An optimal site was selected, marked and cleaned in usual sterile manner. 1% lidocaine was administered at the marked puncture site and left lower quadrant. Through a small skin incision a 5 [place] 3 catheter was advanced into the peritoneal space. After observing fluid return the stylet was removed and catheter connected to vacuum bottle via connecting cannula. After obtaining all fluid and observing normal fluid return, catheter was withdrawn and complete hemostasis achieved at puncture site. Patient tolerated procedure extremely well. FINDINGS: On preliminary ultrasound imaging there is a large amount of fluid seen within the abdomen. Approximately 6.9 L of clear yellowish fluid was drained from the left lower quadrant. None of this fluid was sent to lab. US/US paracentesis abd w/image IMPRESSION: Successful ultrasound-guided therapeutic and diagnostic paracentesis performed without immediate complications.
[2022-09-06 12:01] VITALS: BP 137/68; BP 150/102; PULSE 100; PULSE 115; RESP 20; TEMP 36.7; O2SAT 100; O2SAT 98; BMI 27.2
[2022-09-06 13:05] LABS: MANUAL DIFF FLAG NO
[2022-09-06 13:08] LABS: Basophils Percent Auto 0.9 % (0-2); Hematocrit 34.4 % (37.0-47.0); Hemoglobin 11.2 g/dl (12.0-16.0); Imm Gran Abs Auto 0.01 X10*3/uL (0.00-0.03); Imm Gran Pct Auto 0.3 % (0.0-0.4); Lymphocytes Absolute Auto 0.7 X10*3/uL (1.2-4.9); Lymphocytes Percent Auto 21.3 % (20-40); Mean Corpuscular HGB Conc 32.6 g/dl (31.0-35.0); Mean Corpuscular Hemoglobin 29.6 pg (27.0-33.0); Mean Platelet Volume 11.2 fL (9.4-12.3); Monocytes Absolute Auto 0.3 X10*3/uL (0.1-1.2); Monocytes Percent Auto 8.7 % (2-11); Neutrophils Absolute Auto 2.3 x10*3/uL (2.0-8.3); Neutrophils Percent Auto 68.8 % (45-73); Platelet Count 141 X10*3/uL (160-400); Red Blood Count 3.78 X10*6/uL (4.20-5.50); Red Cell Distribution Width 15.9 % (11.0-16.0); White Blood Count 3.3 X10*3/uL (4.8-10.8)
[2022-09-06 13:20] LABS: INTERNATIONAL NORM RATIO 1.4 (0.9-1.1); Prothrombin Time 16.5 SEC (10.0-13.1)
[2022-09-06 13:24] LABS: COVID-19 Test Negative (Negative); IDNOW Serial# 16C4AD1C
[2022-09-06 13:43] LABS: Troponin-I High Sensitivity < 3.5 ng/L (<3.5-17.0)
[2022-09-06 13:56] LABS: Ammonia 42 umol/L (13-55)
[2022-09-06 14:10] VITALS: BP 134/78; PULSE 94; RESP 20; O2SAT 99
[2022-09-06] MEDS: Morphine Sulfate 4 MG/ML CARTRIDGE IVPUSH (14:10)
--- NOTE | 2022-09-06 14:19 | ED_ITS ---
HPI - Abdominal Pain General Chief Complaint: Abdominal Pain Stated Complaint: ABD PAIN Time Seen by Provider: 09/06/22 14:02 Source: patient and old records reviewed Mode of arrival: ambulatory Limitations: no limitations History of Present Illness HPI narrative: 57-year-old female with history of decompensated cryptogenic liver cirrhosis with portal hypertension, recurrent ascites requiring large volume paracenteses, type 2 diabetes, history of GI bleeding, history of hepatic encephalopathy who presents to the ER for evaluation of severe abdominal distention and pain. She was seen at [facility] days ago and had 5.5 L of ascites removed. She denies any nausea, vomiting, diarrhea. She has been compliant with all her medications although she does not know the names of them. She denies any fevers. She reports her abdomen pain got acutely worse today. It hurts to take a deep breath or perform any movements. MD elicited complaint: abdominal pain Pertinent past history: other (Liver cirrhosis) Onset (ago): day(s) Pain Consistency: constant Location: diffuse Severity: severe Pain scale (0-10): 10 Quality: stabbing, aching and fullness Radiation: none Migration to: no migration Exacerbating factors: movement Relieving factors: nothing Context: history of similar episodes Related Data Home Medications Medication Instructions Recorded Confirmed insulin glargine 100 unit/mL (3 20 unit subcut DAILY 07/14/22 08/15/22 mL) subcutaneous pen (Lantus Solostar U-100 Insulin) carvedilol 3.125 mg tablet 1 tab PO BID 08/15/22 08/15/22 insulin aspart U-100 100 unit/mL See Protocol subcut TIDAC 08/15/22 08/15/22 (3 mL) subcutaneous pen (Novolog FlexPen U-100 Insulin aspart) Previous Rx's Medication Instructions Recorded omeprazole 40 mg capsule,delayed 40 mg PO BID@0630,1630 #60 caps 07/24/22 release pregabalin 25 mg capsule (Lyrica) 25 mg PO BID #60 caps 07/24/22 furosemide 40 mg tablet 40 mg PO BID@0900,1800 #60 tabs 08/22/22 lactulose 20 gram/30 mL oral 30 g (45 mL) PO DAILY #1,200 mL 08/22/22 solution midodrine 10 mg tablet 10 mg PO TIDWM #90 tabs 08/22/22 spironolactone 25 mg tablet 12.5 mg PO BID #30 tabs 08/22/22 Allergies Allergy/AdvReac Type Severity Reaction Status Date / Time No Known Allergies Allergy Verified 07/19/21 14:20 [No Known Allergies*] Review of Systems Review of Systems Yes all other systems are reviewed and are negative [facility] Past Medical History Medical History Cirrhosis Cirrhosis Diabetes (~01/31/21) Diabetes mellitus with hyperglycemia Diabetes type 2, controlled Gallstones Hepatic failure due to alcoholism HTN (hypertension) Kidney, perinephric abscess Portal hypertension SBP (spontaneous bacterial peritonitis) UTI (urinary tract infection) UTI (urinary tract infection) UTI due to extended-spectrum beta lactamase (ESBL) producing Escherichia coli Varices of other sites Family History Family History Mother No problems noted. Father No problems noted. Social History Social History Household Members: Children Household Members Other:: Patient's son Housing: House Do you presently have visiting nurse or other home services: No Alcohol intake: never Patient Tobacco Use Status: Never used Tobacco Smoked in Last 30 Days: No e-Cigarette/Vaping Use: Never Used Second Hand Smoke Exposure: No Use of substances other than those prescribed or required for medical reasons: No Advance Directives: No Advance Directives Date on File: 06/15/21 service: No Current occupational status: unemployed and disabled Cognitive needs: No Hearing needs: No Vision needs: No Physical Exam ED Vital Signs: Vital Signs - 24 hr 09/06/22 12:01 09/06/22 14:10 09/06/22 14:53 Temperature 98.1 F Pulse Rate 100 94 91 Respiratory Rate 20 20 20 Blood Pressure 137/68 134/78 126/66 Pulse Oximetry 100 99 96 Oxygen Delivery Method Room Air Room Air Room Air 09/06/22 17:04 09/06/22 17:28 Temperature 98.1 F Pulse Rate 90 84 Respiratory Rate 15 14 Blood Pressure 111/53 L 112/63 Pulse Oximetry 98 97 Oxygen Delivery Method Room Air Room Air BMI result Body Mass Index 27.2 Appearance: Alert. Oriented X3. Crying in pain Eyes: Pupils equal, round and reactive to light. ENT: Pharynx normal. Neck: Normal inspection. Neck supple. CVS: Normal heart rate and rhythm. Pulses normal. Respiratory: No respiratory distress. Breath sounds normal. Abdomen: Rotund, tense, and very tender throughout to light touch, +BS x4 Skin: Skin warm and dry. Normal skin color. Normal skin turgor. No rashes. Extremities: No lower extremity edema. Neuro: Oriented X 3. No motor deficit. No sensory deficit. Course Course Course Narrative: 57-year-old female with history of decompensated cryptogenic liver cirrhosis with large volume ascites requiring frequent taps who presents to the ER for evaluation of recurring abdominal distention and pain. Patient has been requiring frequent large volume paracenteses. She is exquisitely tender on examination. Concern for possible SBP Will get Interventional Radiology to help with a large volume paracentesis to day. Will send cultures. Pain meds ordered. Albumin ordered. Reevaluation(s) Reevaluation #1: patient back from IR - she reports 5 liters being removed and feeling much better. Albumin infusing. She is hemodynamically stable. She is poor historian and states her daughter helps to arrange all of her outpatient paracentesis. spoke with the lab. gram stain will no be back until tomorrow. She has baseline leukopenia and thrombocytopenia. She has no fever here. Lactic acid 2.2 which improved to 1.9. Not due to infection, most likely underlying liver disease and poor clearance. Will hold off on treating for SBP. Her abdomen tenderness has improved that she has been drained. will plan to d/c home with her diuretics and close outpatient follow up once albumin is done infusing. Medical Decision Making Lab Data 09/06/22 12:55 09/06/22 12:55 Labs: Lab Results 09/06/22 09/06/22 09/06/22 Range/Units 12:02 12:55 12:55 WBC 3.3 L (4.8-10.8) X10*3/uL RBC 3.78 L D (4.20-5.50) X10*6/uL Hgb 11.2 L D (12.0-16.0) g/dl Hct 34.4 L (37.0-47.0) % MCV 91.0 (80.0-98.0) fL MCH 29.6 (27.0-33.0) pg MCHC 32.6 (31.0-35.0) g/dl RDW 15.9 (11.0-16.0) % Plt Count 141 L D (160-400) X10*3/uL MPV 11.2 (9.4-12.3) fL Immature Gran % (Auto) 0.3 (0.0-0.4) % Neut % (Auto) 68.8 (45-73) % Lymph % (Auto) 21.3 (20-40) % Vermilion % (Auto) 8.7 (2-11) % Eos % (Auto) 0.0 (0-4) % Baso % (Auto) 0.9 (0-2) % Lymph # (Auto) 0.7 L (1.2-4.9) X10*3/uL [place] # (Auto) 0.3 (0.1-1.2) X10*3/uL Eos # (Auto) 0.0 (0.0-0.4) X10*3/uL Baso # (Auto) 0.0 (0.0-0.2) X10*3/uL Abs Immat Gran (auto) 0.01 (0.00-0.03) X10*3/uL Absolute Neuts (auto) 2.3 (2.0-8.3) x10*3/uL Absolute Nucleated RBC 0.000 (0.0-0.012) X10*3/uL Nucleated RBC % (auto) 0.0 (0.0-0.2) /100WBC PT 16.5 H (10.0-13.1) SEC INR 1.4 H (0.9-1.1) Sodium (135-145) mmol/L Potassium (3.3-5.1) mmol/L Chloride (96-108) mmol/L Carbon Dioxide (22-29) mmol/L Anion Gap (12-20) BUN (9-16) mg/dL Creatinine (0.5-1.4) mg/dL Estim Creat Clear Calc Estimated GFR POC Glucose 372 H* (60-115) mg/dL Random Glucose (60-115) mg/dL Lactic Acid (0.5-2.0) mmol/L Lactic Acid F/U @ 2Hr (0.5-2.0) mmol/L Calcium (8.4-10.2) mg/dL Magnesium (1.6-2.6) mg/dL Total Bilirubin (0.0-1.0) mg/dL Direct Bilirubin (0.0-0.5) mg/dL AST (5-31) U/L ALT (0-31) U/L Alkaline Phosphatase (39-117) U/L Ammonia (13-55) umol/L Troponin I High Sens (<3.5-17.0) ng/L Total Protein (6.5-8.0) g/dL Albumin (3.5-5.0) g/dL Lipase (8-78) U/L COVID-19 (DAVION) (Negative) COVID-19 Clin Com 09/06/22 09/06/22 09/06/22 Range/Units 12:55 12:56 13:40 WBC (4.8-10.8) X10*3/uL RBC (4.20-5.50) X10*6/uL Hgb (12.0-16.0) g/dl Hct (37.0-47.0) % MCV (80.0-98.0) fL MCH (27.0-33.0) pg MCHC (31.0-35.0) g/dl RDW (11.0-16.0) % Plt Count (160-400) X10*3/uL MPV (9.4-12.3) fL Immature Gran % (Auto) (0.0-0.4) % Neut % (Auto) (45-73) % Lymph % (Auto) (20-40) % Vermilion % (Auto) (2-11) % Eos % (Auto) (0-4) % Baso % (Auto) (0-2) % Lymph # (Auto) (1.2-4.9) X10*3/uL [place] # (Auto) (0.1-1.2) X10*3/uL Eos # (Auto) (0.0-0.4) X10*3/uL Baso # (Auto) (0.0-0.2) X10*3/uL Abs Immat Gran (auto) (0.00-0.03) X10*3/uL Absolute Neuts (auto) (2.0-8.3) x10*3/uL Absolute Nucleated RBC (0.0-0.012) X10*3/uL Nucleated RBC % (auto) (0.0-0.2) /100WBC PT (10.0-13.1) SEC INR (0.9-1.1) Sodium 137 (135-145) mmol/L Potassium 3.9 (3.3-5.1) mmol/L Chloride 104 (96-108) mmol/L Carbon Dioxide 25 (22-29) mmol/L Anion Gap 12 (12-20) BUN 9 (9-16) mg/dL Creatinine 0.86 (0.5-1.4) mg/dL Estim Creat Clear Calc 71.1 Estimated GFR > 60 POC Glucose (60-115) mg/dL Random Glucose 388 H* (60-115) mg/dL Lactic Acid (0.5-2.0) mmol/L Lactic Acid F/U @ 2Hr (0.5-2.0) mmol/L Calcium 8.4 (8.4-10.2) mg/dL Magnesium 1.7 (1.6-2.6) mg/dL Total Bilirubin 1.6 H (0.0-1.0) mg/dL Direct Bilirubin 0.7 H (0.0-0.5) mg/dL AST 41 H (5-31) U/L ALT 21 (0-31) U/L Alkaline Phosphatase 201 H (39-117) U/L Ammonia (13-55) umol/L Troponin I High Sens < 3.5 (<3.5-17.0) ng/L Total Protein 6.9 (6.5-8.0) g/dL Albumin 3.0 L (3.5-5.0) g/dL Lipase 19 (8-78) U/L COVID-19 (DAVION) Negative (Negative) COVID-19 Clin Com See Note 09/06/22 09/06/22 09/06/22 Range/Units 13:40 14:19 14:19 WBC (4.8-10.8) X10*3/uL RBC (4.20-5.50) X10*6/uL Hgb (12.0-16.0) g/dl Hct (37.0-47.0) % MCV (80.0-98.0) fL MCH (27.0-33.0) pg MCHC (31.0-35.0) g/dl RDW (11.0-16.0) % Plt Count (160-400) X10*3/uL MPV (9.4-12.3) fL Immature Gran % (Auto) (0.0-0.4) % Neut % (Auto) (45-73) % Lymph % (Auto) (20-40) % Vermilion % (Auto) (2-11) % Eos % (Auto) (0-4) % Baso % (Auto) (0-2) % Lymph # (Auto) (1.2-4.9) X10*3/uL Vermilion # (Auto) (0.1-1.2) X10*3/uL Eos # (Auto) (0.0-0.4) X10*3/uL Baso # (Auto) (0.0-0.2) X10*3/uL Abs Immat Gran (auto) (0.00-0.03) X10*3/uL Absolute Neuts (auto) (2.0-8.3) x10*3/uL Absolute Nucleated RBC (0.0-0.012) X10*3/uL Nucleated RBC % (auto) (0.0-0.2) /100WBC PT (10.0-13.1) SEC INR (0.9-1.1) Sodium Cancelled (135-145) mmol/L Potassium Cancelled (3.3-5.1) mmol/L Chloride Cancelled (96-108) mmol/L Carbon Dioxide Cancelled (22-29) mmol/L Anion Gap Cancelled (12-20) BUN Cancelled (9-16) mg/dL Creatinine Cancelled (0.5-1.4) mg/dL Estim Creat Clear Calc Cancelled Estimated GFR Cancelled POC Glucose (60-115) mg/dL Random Glucose Cancelled (60-115) mg/dL Lactic Acid 2.2 H* (0.5-2.0) mmol/L Lactic Acid F/U @ 2Hr (0.5-2.0) mmol/L Calcium Cancelled (8.4-10.2) mg/dL Magnesium (1.6-2.6) mg/dL Total Bilirubin Cancelled (0.0-1.0) mg/dL Direct Bilirubin Cancelled (0.0-0.5) mg/dL AST Cancelled (5-31) U/L ALT Cancelled (0-31) U/L Alkaline Phosphatase Cancelled (39-117) U/L Ammonia 42 (13-55) umol/L Troponin I High Sens (<3.5-17.0) ng/L Total Protein Cancelled (6.5-8.0) g/dL Albumin Cancelled (3.5-5.0) g/dL Lipase Cancelled (8-78) U/L COVID-19 (DAVION) (Negative) COVID-19 Clin Com 09/06/22 Range/Units 17:16 WBC (4.8-10.8) X10*3/uL RBC (4.20-5.50) X10*6/uL Hgb (12.0-16.0) g/dl Hct (37.0-47.0) % MCV (80.0-98.0) fL MCH (27.0-33.0) pg MCHC (31.0-35.0) g/dl RDW (11.0-16.0) % Plt Count (160-400) X10*3/uL MPV (9.4-12.3) fL Immature Gran % (Auto) (0.0-0.4) % Neut % (Auto) (45-73) % Lymph % (Auto) (20-40) % [place]ilion % (Auto) (2-11) % Eos % (Auto) (0-4) % Baso % (Auto) (0-2) % Lymph # (Auto) (1.2-4.9) X10*3/uL [place] # (Auto) (0.1-1.2) X10*3/uL Eos # (Auto) (0.0-0.4) X10*3/uL Baso # (Auto) (0.0-0.2) X10*3/uL Abs Immat Gran (auto) (0.00-0.03) X10*3/uL Absolute Neuts (auto) (2.0-8.3) x10*3/uL Absolute Nucleated RBC (0.0-0.012) X10*3/uL Nucleated RBC % (auto) (0.0-0.2) /100WBC PT (10.0-13.1) SEC INR (0.9-1.1) Sodium (135-145) mmol/L Potassium (3.3-5.1) mmol/L Chloride (96-108) mmol/L Carbon Dioxide (22-29) mmol/L Anion Gap (12-20) BUN (9-16) mg/dL Creatinine (0.5-1.4) mg/dL Estim Creat Clear Calc Estimated GFR POC Glucose (60-115) mg/dL Random Glucose (60-115) mg/dL Lactic Acid (0.5-2.0) mmol/L Lactic Acid F/U @ 2Hr 1.9 (0.5-2.0) mmol/L Calcium (8.4-10.2) mg/dL Magnesium (1.6-2.6) mg/dL Total Bilirubin (0.0-1.0) mg/dL Direct Bilirubin (0.0-0.5) mg/dL AST (5-31) U/L ALT (0-31) U/L Alkaline Phosphatase (39-117) U/L Ammonia (13-55) umol/L Troponin I High Sens (<3.5-17.0) ng/L Total Protein (6.5-8.0) g/dL Albumin (3.5-5.0) g/dL Lipase (8-78) U/L COVID-19 ([facility]ION) (Negative) COVID-19 Clin Com Medications Administered Discontinued Medications Generic Name Dose Route Start Last Admin Trade Name Freq PRN Reason Stop Dose Admin Albumin Human 100 mls @ 100 mls/hr 09/06/22 14:07 09/06/22 17:18 Kedbumin 25 % IV 09/06/22 15:06 100 mls/hr ONCE ONE Administration Lidocaine HCl 10 ml 09/06/22 17:07 09/06/22 17:09 Lidocaine Hcl 1 % Mpf 5 Ml Vial SUBCUT 09/06/22 17:08 10 ml ONCE ONE Administration Morphine Sulfate 4 mg 09/06/22 14:05 09/06/22 14:10 Morphine Sulfate 4 Mg/Ml Cartridge IVPUSH 09/06/22 14:06 4 mg ONCE ONE Administration Protocol Discharge Plan Discharge Clinical Impression: Decompensated hepatic cirrhosis Patient Disposition: Home, Self-Care Instructions: Cirrhosis (ED) Additional Instructions: Follow-up with your liver doctor tomorrow. Continue your furosemide 40 mg 2 times away and spironolactone 25 mg 2 times a day. You need to talk with your liver doctor about liver transplant, this is end- stage liver disease. Prescriptions: No Action insulin glargine [Lantus Solostar U-100 Insulin] 100 unit/mL (3 mL) insulin pen 20 unit subcut DAILY omeprazole 40 mg Capsule,Delayed Release(Dr/Ec) 40 mg PO BID@0630,1630 Qty: 60 0RF pregabalin [Lyrica] 25 mg Capsule 25 mg PO BID Qty: 60 0RF carvedilol 3.125 mg tablet 1 tab PO BID insulin aspart U-100 [Novolog FlexPen U-100 Insulin] 100 unit/mL (3 mL) insulin pen See Protocol subcut TIDAC Protocol: Insulin Correction Scale Less than or equal to 110 ---- Give (units): 0 111 to 150 Give (units): 0 151 to 200 Give (units): 2 201 to 250 Give (units): 4 251 to 300 Give (units): 6 301 to 350 Give (units): 8 Greater than 350 Give (units): 10 Call MD if Blood Glucose > : 350 furosemide 40 mg Tablet 40 mg PO BID@0900,1800 Qty: 60 0RF Protocol: Hold for SBP< HOLD for SBP < : 90 midodrine 10 mg Tablet 10 mg PO TIDWM Qty: 90 0RF lactulose 20 gram/30 mL Solution 30 g PO DAILY Qty: 1200 0RF spironolactone 25 mg Tablet 12.5 mg PO BID Qty: 30 0RF Protocol: Hold for SBP< HOLD for SBP < : 90
[2022-09-06 14:27] LABS: Glucose, Whole Blood 372 mg/dL (60-115)
[2022-09-06 14:34] LABS: Alanine Aminotransferase 21 U/L (0-31); Alkaline Phosphatase 201 U/L (39-117); Anion Gap 12 (12-20); Aspartate Amino Transferase 41 U/L (5-31); Bilirubin Direct 0.7 mg/dL (0.0-0.5); Bilirubin Total 1.6 mg/dL (0.0-1.0); Blood Urea Nitrogen 9 mg/dL (9-16); Calcium 8.4 mg/dL (8.4-10.2); Carbon Dioxide 25 mmol/L (22-29); Chloride 104 mmol/L (96-108); Creatinine Clr Calc Pharmacy 71.1; Estimated Glomerular Filt Rate > 60; Glucose Random 388 mg/dL (60-115); Lipase 19 U/L (8-78); Magnesium 1.7 mg/dL (1.6-2.6); Potassium 3.9 mmol/L (3.3-5.1); Sodium 137 mmol/L (135-145); Total Protein 6.9 g/dL (6.5-8.0)
[2022-09-06 14:53] VITALS: BP 126/66; PULSE 91; RESP 20; O2SAT 96
[2022-09-06 14:56] LABS: Lactic Acid 2.2 mmol/L (0.5-2.0)
[2022-09-06 16:24] LABS: Reflex Lactate? Lactic Acid Added
[2022-09-06 17:04] VITALS: BP 111/53; PULSE 90; RESP 15; TEMP 36.7; O2SAT 98
[2022-09-06] MEDS: Lidocaine HCl 1 % MPF 5 ML VIAL 10 ML SUBCUT (17:09)
[2022-09-06] MEDS: Albumin Human 25 % 100 ML IV (17:18)
[2022-09-06 17:28] VITALS: BP 112/63; PULSE 84; RESP 14; O2SAT 97
[2022-09-06 17:34] LABS: ~Lactic Acid-LAB USE ONLY 1.9 mmol/L (0.5-2.0)
[2022-09-06 18:00] LABS: Glucose, Whole Blood 304 mg/dL (60-115)
[2022-09-06 18:27] VITALS: BP 114/62; PULSE 89; RESP 14; TEMP 36.7; O2SAT 95
[2022-09-06 22:35] LABS: pH Peritoneal Fluid 7.62
[2022-09-06 22:48] LABS: Albumin Peritoneal Fluid 0.9 GM/DL; Glucose Peritoneal Fluid 401 MG/DL; LDH Peritoneal Fluid 51 U/L; Total Protein Peritoneal Fluid 1.5 GM/DL
== END 2022-09-06 18:42 | disposition home or self-care (01) ==
PROVIDERS: Physician Assistant; Emergency Provider Emergency Medicine Emergency Medical Services; PCP Internal Medicine
DX: K74.60 Unspecified cirrhosis of liver (principal); R10.9 Unspecified abdominal pain; R18.8 Other ascites; Z20.822 Contact with and (suspected) exposure to COVID-19; Z20.828 Contact with and (suspected) exposure to other viral communicable diseases; Z79.899 Other long term (current) drug therapy
CPT/HCPCS: 36415; 49083; 80053; 82042; 82140; 82248; 82945; 82947; 83605; 83615; 83690; 83735; 83986; 84157; 84484; 85025; 85610; 87040; 87070; 87073; 87102; 87205; 87635; 96365; 96375; 99284; 99285; J2270; P9047

== ENCOUNTER 2022-09-13 11:41 | Emergency (ER) | payer OTHER, SELFPAY ==
--- NOTE | ~2022-09-13 | US_ITS ---
EXAMINATION: ULTRASOUND-GUIDED PARACENTESIS. CLINICAL INFORMATION: Decompensated cirrhosis. COMPARISON: Ultrasound paracentesis 09/06/2022 TECHNIQUE: Following explaining ultrasound-guided cyst paracentesis procedure, benefits and risk, a written consent was obtained. Patient was placed supine on ultrasound table and the urinary ultrasound imaging was obtained through the abdomen. An optimal site was selected along the left mid quadrant and marked with a marker. The marked site was cleaned and draped in usual sterile manner. 1% lidocaine was injected puncture site. Through a small skin incision a 5 [place] catheter was advanced into the peritoneal space. After observing fluid return, stylet was withdrawn and catheter connected to vacuum bottle via connecting cannula. After obtaining all fluid and observing no more fluid return, catheter was withdrawn and cannula connected to vacuum bottle via connecting cannula. After obtaining all fluid and observing no more fluid return, catheter was withdrawn and complete hemostasis achieved at puncture site. Simple Band-Aid applied at puncture site. FINDINGS: On preliminary ultrasound imaging there is a large amount of ascites noted. Approximately 7 L of clear yellowish fluid was drained. None of this fluid was sent to lab. US/US paracentesis abd w/image IMPRESSION: Successful ultrasound-guided paracentesis with approximately 7 L of clear yellowish fluid drained. Patient can be discharged after one hour through the ER
[2022-09-13 12:08] VITALS: BP 137/75; PULSE 100; RESP 18; TEMP 36.6; O2SAT 100; BMI 25.8
[2022-09-13 12:35] LABS: MANUAL DIFF FLAG NO
[2022-09-13 12:38] LABS: Basophils Percent Auto 0.7 % (0-2); Hematocrit 32.7 % (37.0-47.0); Hemoglobin 10.8 g/dl (12.0-16.0); Lymphocytes Absolute Auto 0.7 X10*3/uL (1.2-4.9); Lymphocytes Percent Auto 16.7 % (20-40); Mean Corpuscular Hemoglobin 29.7 pg (27.0-33.0); Mean Corpuscular Volume 89.8 fL (80.0-98.0); Mean Platelet Volume 10.8 fL (9.4-12.3); Monocytes Absolute Auto 0.4 X10*3/uL (0.1-1.2); Monocytes Percent Auto 9.2 % (2-11); Neutrophils Percent Auto 73.4 % (45-73); Platelet Count 142 X10*3/uL (160-400); Red Blood Count 3.64 X10*6/uL (4.20-5.50); Red Cell Distribution Width 15.4 % (11.0-16.0); White Blood Count 4.1 X10*3/uL (4.8-10.8)
[2022-09-13 12:43] LABS: INTERNATIONAL NORM RATIO 1.4 (0.9-1.1); Prothrombin Time 15.9 SEC (10.0-13.1)
[2022-09-13 12:55] LABS: Anion Gap 12 (12-20); Blood Urea Nitrogen 9 mg/dL (9-16); Calcium 8.1 mg/dL (8.4-10.2); Carbon Dioxide 25 mmol/L (22-29); Chloride 102 mmol/L (96-108); Creatinine Clr Calc Pharmacy 53.7; Estimated Glomerular Filt Rate 50; Glucose Random 528 mg/dL (60-115); Potassium 3.7 mmol/L (3.3-5.1); Sodium 135 mmol/L (135-145)
--- NOTE | 2022-09-13 12:58 | ED_ITS ---
HPI - Abdominal Pain General Chief Complaint: Abdominal Pain Stated Complaint: Stomach Drainage? Time Seen by Provider: 09/13/22 12:56 Source: patient Mode of arrival: ambulatory Limitations: no limitations History of Present Illness HPI narrative: 57-year-old female with history? of decompensated cryptogenic liver cirrhosis with portal hypertension, recurrent ascites requiring frequent large volume paracenteses, type 2 diabetes, history of GI bleeding, history of hepatic encephalopathy who presents to the ER for evaluation of abdominal pain and distention. She had her last paracentesis here on 09/06 yielding 5L of clear yellow fluid, culture was negative for infection. She reports compliance with her diuretics. MD elicited complaint: abdominal pain Pertinent past history: other (decompensated cirrhosis) Onset (ago): unknown Pain Consistency: constant Location: diffuse Severity: severe Pain scale (0-10): 10 Quality: stabbing and aching Migration to: no migration Exacerbating factors: nothing Relieving factors: other (paracentesis) Context: history of similar episodes Associated symptoms: nausea Related Data Home Medications Medication Instructions Recorded Confirmed insulin glargine 100 unit/mL (3 20 unit subcut DAILY 07/14/22 08/15/22 mL) subcutaneous pen (Lantus Solostar U-100 Insulin) carvedilol 3.125 mg tablet 1 tab PO BID 08/15/22 08/15/22 insulin aspart U-100 100 unit/mL See Protocol subcut TIDAC 08/15/22 08/15/22 (3 mL) subcutaneous pen (Novolog FlexPen U-100 Insulin aspart) Previous Rx's Medication Instructions Recorded omeprazole 40 mg capsule,delayed 40 mg PO BID@0630,1630 #60 caps 07/24/22 release pregabalin 25 mg capsule (Lyrica) 25 mg PO BID #60 caps 07/24/22 furosemide 40 mg tablet 40 mg PO BID@0900,1800 #60 tabs 08/22/22 lactulose 20 gram/30 mL oral 30 g (45 mL) PO DAILY #1,200 mL 08/22/22 solution midodrine 10 mg tablet 10 mg PO TIDWM #90 tabs 08/22/22 spironolactone 25 mg tablet 12.5 mg PO BID #30 tabs 08/22/22 Allergies Allergy/AdvReac Type Severity Reaction Status Date / Time No Known Allergies Allergy Verified 07/19/21 14:20 [No Known Allergies*] Review of Systems Review of Systems Yes all other systems are reviewed and are negative [facility] Past Medical History Medical History Cirrhosis Cirrhosis Diabetes (~01/31/21) Diabetes mellitus with hyperglycemia Diabetes type 2, controlled Gallstones Hepatic failure due to alcoholism HTN (hypertension) Kidney, perinephric abscess Portal hypertension SBP (spontaneous bacterial peritonitis) UTI (urinary tract infection) UTI (urinary tract infection) UTI due to extended-spectrum beta lactamase (ESBL) producing Escherichia coli Varices of other sites Family History Family History Mother No problems noted. Father No problems noted. Social History Social History Household Members: Children Household Members Other:: Patient's son Housing: House Do you presently have visiting nurse or other home services: No Alcohol intake: never Patient Tobacco Use Status: Never used Tobacco e-Cigarette/Vaping Use: Never Used Second Hand Smoke Exposure: No Advance Directives: No Advance Directives Date on File: 06/15/21 service: No Current occupational status: unemployed and disabled Cognitive needs: No Hearing needs: No Vision needs: No Physical Exam ED Vital Signs: Vital Signs - 24 hr 09/13/22 12:08 09/13/22 13:50 09/13/22 14:12 Temperature 97.9 F 98.0 F Pulse Rate 100 97 95 Respiratory Rate 18 20 13 Blood Pressure 137/75 106/58 L 121/63 Pulse Oximetry 100 98 100 Oxygen Delivery Method Room Air Room Air Room Air 09/13/22 16:31 Temperature Pulse Rate 97 Respiratory Rate 20 Blood Pressure 116/63 Pulse Oximetry 99 Oxygen Delivery Method Room Air BMI result Body Mass Index 25.8 Appearance: Alert. Oriented X3. Uncomfortable. Eyes: Pupils equal, round and reactive to light. ENT: Pharynx normal. Neck: Normal inspection. Neck supple. CVS: Normal heart rate and rhythm. Pulses normal. Respiratory: No respiratory distress. Breath sounds normal. Abdomen: Rotund, firm and diffusely tender. +BS x4 Skin: Skin warm and dry. Normal skin color. Normal skin turgor. No rashes. Extremities: No lower extremity edema. Neuro: Oriented X 3, nonfocal, appears to be in pain Course Course Course Narrative: 57 yo female with history of decompensated cirrhosis requiring frequent taps presenting with recurrent abdominal and distension. No fevers. No evidence of anasarca or diffuse volume overload. Last ascitic fluid was reviewed, no evidence of obstruction. Will consult IR for recurrent paracentesis. Will recheck to GI for further recommendations. IV fentanyl ordered for pain control. Reevaluation(s) Reevaluation #1: Patient reportedly had close to 7 L of ascitic fluid drained. It was sent for culture. She feels much better. She was given albumin. She remains hemodynami alon stable. We discussed the importance of close outpatient follow-up, the benefit of scheduling paracentesis as an outpatient with IR, as well as discussing liver transplant with her freight broker agent. She states there was ?too much paperwork.? Her hyperglycemia is improved. No evidence of DKA. At this point she is stable for discharge home with close outpatient follow-up Consultations Consultation #1: GI Dr. Cabral Medical Decision Making Differential Diagnosis Differential Diagnoses: The differential diagnosis associated with the presentation includes Decompensated liver cirrhosis, SBP, fungal infection, anasarca, bowel obstruction Hyperglycemia, no evidence of DKA or HHS. Poorly managed diabetes Consult Healthcare Provider Management of the patient was discussed with: Women'S Soccer Coach Dr. Cabral recommending repeat paracentesis and outpatient follow-up. Lab Data MDM Lab Attestation statement: I reviewed the patient's lab results. 09/13/22 12:29 09/13/22 12:29 Labs: Lab Results 09/13/22 09/13/22 09/13/22 Range/Units 12:29 12:29 12:29 WBC 4.1 L (4.8-10.8) X10*3/uL RBC 3.64 L (4.20-5.50) X10*6/uL Hgb 10.8 L (12.0-16.0) g/dl Hct 32.7 L (37.0-47.0) % MCV 89.8 (80.0-98.0) fL MCH 29.7 (27.0-33.0) pg MCHC 33.0 (31.0-35.0) g/dl RDW 15.4 (11.0-16.0) % Plt Count 142 L (160-400) X10*3/uL MPV 10.8 (9.4-12.3) fL Immature Gran % (Auto) 0.0 (0.0-0.4) % Neut % (Auto) 73.4 H (45-73) % Lymph % (Auto) 16.7 L (20-40) % [place] % (Auto) 9.2 (2-11) % Eos % (Auto) 0.0 (0-4) % Baso % (Auto) 0.7 (0-2) % Lymph # (Auto) 0.7 L (1.2-4.9) X10*3/uL [place] # (Auto) 0.4 (0.1-1.2) X10*3/uL Eos # (Auto) 0.0 (0.0-0.4) X10*3/uL Baso # (Auto) 0.0 (0.0-0.2) X10*3/uL Abs Immat Gran (auto) 0.00 (0.00-0.03) X10*3/uL Absolute Neuts (auto) 3.0 (2.0-8.3) x10*3/uL Absolute Nucleated RBC 0.000 (0.0-0.012) X10*3/uL Nucleated RBC % (auto) 0.0 (0.0-0.2) /100WBC PT 15.9 H (10.0-13.1) SEC INR 1.4 H (0.9-1.1) Sodium 135 (135-145) mmol/L Potassium 3.7 (3.3-5.1) mmol/L Chloride 102 (96-108) mmol/L Carbon Dioxide 25 (22-29) mmol/L Anion Gap 12 (12-20) BUN 9 (9-16) mg/dL Creatinine 1.11 (0.5-1.4) mg/dL Estim Creat Clear Calc 53.7 Estimated GFR 50 POC Glucose (60-115) mg/dL Random Glucose 528 H* (60-115) mg/dL Calcium 8.1 L (8.4-10.2) mg/dL Magnesium 1.7 (1.6-2.6) mg/dL Total Bilirubin 1.5 H (0.0-1.0) mg/dL Direct Bilirubin 0.6 H (0.0-0.5) mg/dL AST 31 (5-31) U/L ALT 24 (0-31) U/L Alkaline Phosphatase 171 H (39-117) U/L Total Protein 6.2 L (6.5-8.0) g/dL Albumin 2.7 L (3.5-5.0) g/dL 09/13/22 Range/Units 14:09 WBC (4.8-10.8) X10*3/uL RBC (4.20-5.50) X10*6/uL Hgb (12.0-16.0) g/dl Hct (37.0-47.0) % MCV (80.0-98.0) fL MCH (27.0-33.0) pg MCHC (31.0-35.0) g/dl RDW (11.0-16.0) % Plt Count (160-400) X10*3/uL MPV (9.4-12.3) fL Immature Gran % (Auto) (0.0-0.4) % Neut % (Auto) (45-73) % Lymph % (Auto) (20-40) % [place] % (Auto) (2-11) % Eos % (Auto) (0-4) % Baso % (Auto) (0-2) % Lymph # (Auto) (1.2-4.9) X10*3/uL [place] # (Auto) (0.1-1.2) X10*3/uL Eos # (Auto) (0.0-0.4) X10*3/uL Baso # (Auto) (0.0-0.2) X10*3/uL Abs Immat Gran (auto) (0.00-0.03) X10*3/uL Absolute Neuts (auto) (2.0-8.3) x10*3/uL Absolute Nucleated RBC (0.0-0.012) X10*3/uL Nucleated RBC % (auto) (0.0-0.2) /100WBC PT (10.0-13.1) SEC INR (0.9-1.1) Sodium (135-145) mmol/L Potassium (3.3-5.1) mmol/L Chloride (96-108) mmol/L Carbon Dioxide (22-29) mmol/L Anion Gap (12-20) BUN (9-16) mg/dL Creatinine (0.5-1.4) mg/dL Estim Creat Clear Calc Estimated GFR POC Glucose 374 H* (60-115) mg/dL Random Glucose (60-115) mg/dL Calcium (8.4-10.2) mg/dL Magnesium (1.6-2.6) mg/dL Total Bilirubin (0.0-1.0) mg/dL Direct Bilirubin (0.0-0.5) mg/dL AST (5-31) U/L ALT (0-31) U/L Alkaline Phosphatase (39-117) U/L Total Protein (6.5-8.0) g/dL Albumin (3.5-5.0) g/dL External Record Review External record reviewed: Office record, Outpatient record, Prior outpatient labs and Prior outpatient radiology Prescription Management I considered prescription management with: Antibiotic no GI bleeding, no role for SBP ppx. last tap was negative Chronic Conditions Patient?s care impacted by: Other (Chronic liver disease) Social Determinants Patient?s care significantly limited by Social Determinants of Health including: Other Social Determinant of Health Medications Administered Generic Name Dose Route Start Last Admin Trade Name Freq PRN Reason Stop Dose Admin Lidocaine HCl 10 ml 09/13/22 16:35 09/13/22 16:36 Lidocaine Hcl 1 % Mpf 5 Ml Vial SUBCUT 09/13/22 16:36 10 ml ONCE ONE Administration Discontinued Medications Generic Name Dose Route Start Last Admin Trade Name Freq PRN Reason Stop Dose Admin Fentanyl 50 mcg 09/13/22 13:02 09/13/22 13:08 Fentanyl Citrate/Pf 100 Mcg/2 Ml Vial IVPUSH 09/13/22 13:03 50 mcg ONCE ONE Administration Protocol Albumin Human 100 mls @ 100 mls/hr 09/13/22 13:58 09/13/22 15:07 Kedbumin 25 % IV 09/13/22 14:57 100 mls/hr ONCE ONE Administration Insulin Human Regular 5 unit 09/13/22 12:57 09/13/22 13:05 Insulin Regular, Human 100 Unit/Ml 3 Ml Vial IVPUSH 09/13/22 12:58 5 unit ONCE ONE Administration Critical Care Time Critical Care Time Critical Care Time: No Discharge Plan Discharge Clinical Impression: Ascites, Hyperglycemia Patient Disposition: Home, Self-Care Instructions: Ascites (ED), Paracentesis (DC) Additional Instructions: Call Dr. Yadav's office 1st thing in the morning to arrange outpatient follow up You would benefit from scheduled paracentesis to prevent recurrent ER visits Take your prescribed medications including furosemide and spironolactone to help prevent fluid buildup in your stomach. Recommend calling your GI doctor at [facility] to further discuss liver transplantation. If you develop new or worsening symptoms call 911 or come back to the ER for further evaluation. Prescriptions: No Action insulin glargine [Lantus Solostar U-100 Insulin] 100 unit/mL (3 mL) insulin pen 20 unit subcut DAILY omeprazole 40 mg Capsule,Delayed Release(Dr/Ec) 40 mg PO BID@0630,1630 Qty: 60 0RF pregabalin [Lyrica] 25 mg Capsule 25 mg PO BID Qty: 60 0RF carvedilol 3.125 mg tablet 1 tab PO BID insulin aspart U-100 [Novolog FlexPen U-100 Insulin] 100 unit/mL (3 mL) insulin pen See Protocol subcut TIDAC Protocol: Insulin Correction Scale Less than or equal to 110 ---- Give (units): 0 111 to 150 Give (units): 0 151 to 200 Give (units): 2 201 to 250 Give (units): 4 251 to 300 Give (units): 6 301 to 350 Give (units): 8 Greater than 350 Give (units): 10 Call MD if Blood Glucose > : 350 furosemide 40 mg Tablet 40 mg PO BID@0900,1800 Qty: 60 0RF Protocol: Hold for SBP< HOLD for SBP < : 90 midodrine 10 mg Tablet 10 mg PO TIDWM Qty: 90 0RF lactulose 20 gram/30 mL Solution 30 g PO DAILY Qty: 1200 0RF spironolactone 25 mg Tablet 12.5 mg PO BID Qty: 30 0RF Protocol: Hold for SBP< HOLD for SBP < : 90
[2022-09-13] MEDS: Insulin Regular, Human 100 UNIT/ML 3 ML VIAL IVPUSH (13:05)
[2022-09-13] MEDS: fentaNYL citrate/PF 100 MCG/2 ML VIAL 50 MCG IVPUSH (13:08)
[2022-09-13 13:34] LABS: Alanine Aminotransferase 24 U/L (0-31); Albumin Level 2.7 g/dL (3.5-5.0); Alkaline Phosphatase 171 U/L (39-117); Aspartate Amino Transferase 31 U/L (5-31); Bilirubin Direct 0.6 mg/dL (0.0-0.5); Bilirubin Total 1.5 mg/dL (0.0-1.0); Magnesium 1.7 mg/dL (1.6-2.6); Total Protein 6.2 g/dL (6.5-8.0)
[2022-09-13 13:50] VITALS: BP 106/58; PULSE 97; RESP 20; O2SAT 98
[2022-09-13 14:12] VITALS: BP 121/63; PULSE 95; RESP 13; TEMP 36.7; O2SAT 100
[2022-09-13 14:16] LABS: Glucose, Whole Blood 374 mg/dL (60-115)
[2022-09-13] MEDS: Albumin Human 25 % 100 ML IV (15:07)
--- NOTE | 2022-09-13 15:37 | PC.NURSE ---
Pt to IR for paracentesis
--- NOTE | 2022-09-13 16:30 | PC.NURSE ---
pt returns from IR where 7 liters was removed during her paracentesis
[2022-09-13 16:31] VITALS: BP 116/63; PULSE 97; RESP 20; O2SAT 99
[2022-09-13] MEDS: Lidocaine HCl 1 % MPF 5 ML VIAL 10 ML SUBCUT (16:36)
[2022-09-13 16:53] LABS: Glucose, Whole Blood 374 mg/dL (60-115)
[2022-09-13] MEDS: Insulin Lispro 100 UNIT/ML 3 ML VIAL 10 UNIT SUBCUT (17:15)
[2022-09-13 17:17] VITALS: BP 123/65; PULSE 91; RESP 18; O2SAT 98
== END 2022-09-13 17:57 | disposition home or self-care (01) ==
PROVIDERS: Physician Assistant; Radiology Diagnostic Radiology; Emergency Provider Student in an Organized Health Care Education/Training Program; PCP Internal Medicine
DX: R18.8 Other ascites (principal); E11.65 Type 2 diabetes mellitus with hyperglycemia; Z79.899 Other long term (current) drug therapy; Z79.4 Long term (current) use of insulin
CPT/HCPCS: 36415; 49083; 80048; 80076; 82947; 83735; 85025; 85610; 96365; 96375; 99284; 99285; J3010; P9047

== ENCOUNTER 2022-09-17 20:15 | Inpatient (IN) | payer OTHER, SELFPAY ==
--- NOTE | ~2022-09-17 | US_ITS ---
EXAMINATION: US ABDOMEN LIMITED CLINICAL INFORMATION: Ascites and abdominal pain. COMPARISON: Abdominal ultrasound 04/27/2022. TECHNIQUE: Real-time imaging of the right upper quadrant abdominal viscera. FINDINGS: PANCREAS: The head and body appear normal. The tail is obscured by bowel gas. LIVER: Cirrhotic appearing liver. No discrete liver mass. No intrahepatic ductal dilatation. The main portal vein is patent. GALLBLADDER: Cholelithiasis without evidence for cholecystitis. Gallstone measuring 1.5 cm. COMMON BILE DUCT: Common bile duct is dilated measuring 0.9 cm. There is questionable debris in the distal duct. Previously the duct measured 0.4 cm on 04/27/2022. RIGHT KIDNEY: The right kidney measures 8.2 cm. The right kidney is poorly visualized. No discrete mass. No hydronephrosis. FREE FLUID: Small ascites. Paracentesis performed separately. US/US abdomen limited IMPRESSION: Cirrhotic liver. Ascites. Cholelithiasis without evidence of cholecystitis. Dilated common bile duct measuring 0.9 cm. Questionable debris in the distal duct.
--- NOTE | ~2022-09-17 | US_ITS ---
EXAMINATION: ULTRASOUND-GUIDED PARACENTESIS. CLINICAL INFORMATION: Ascites. Abdominal pain. COMPARISON: Ultrasound-guided paracentesis 09/13/2022 TECHNIQUE: Following explaining ultrasound-guided paracentesis procedure, benefits and risks, a written consent was obtained. Patient was placed supine on fluoroscopy table and preliminary ultrasound imaging was obtained. An optimal site was selected and marked along the left lower quadrant. The marked site was cleaned and draped in the usual sterile manner. 1% lidocaine was injected at the puncture site. Through a small skin incision, a 5 [employer] catheter was advanced into the peritoneal space. After observing fluid return, stylet was removed and catheter connected to vacuum bottle via connecting cannula. After obtaining all fluid and observing no more fluid return, catheter was withdrawn and complete hemostasis was achieved at the puncture site. Sterile dressing was applied postprocedure. Patient tolerated the procedure extremely well. FINDINGS: On preliminary ultrasound imaging, there was a [id number] amount of ascites noted. Approximately 5.7 L of clear yellowish fluid drained from the left lower quadrant. Part of this fluid was sent to lab. US/US paracentesis abd w/image IMPRESSION: Successful ultrasound-guided diagnostic and therapeutic paracentesis performed.
[2022-09-17 20:20] VITALS: BP 104/70; BP 116/80; PULSE 100; PULSE 95; RESP 18; TEMP 36.6; O2SAT 100; O2SAT 99; BMI 26.1
--- NOTE | 2022-09-17 21:35 | PC.NURSE ---
PT A&Ox3, reports all over 10/10 abd pain with nausea since last night. States the pain is intermittent and cramping. Reports last BM today, normal for her. ABD is distended, tender to touch. + bowel sounds. IV established, meds given as documented. PT able to ambulate to BR with stand by assist.
--- NOTE | 2022-09-17 21:35 | ED_ITS ---
HPI - Abdominal Pain General Chief Complaint: Abdominal Pain Stated Complaint: abdominal pain Time Seen by Provider: 09/17/22 20:21 History of Present Illness HPI narrative: patient is a 57-year-old female presents today with having abdominal pain. The abdominal pain is epigastric in nature. Has a history liver cirrhosis. Multiple paracentesis done this month on September 06 and also September 13. Patient had a CT scan done earlier this month well On August 21. Multiple episodes of having similar pain. Patient claims the pain is very similar to previous episodes. Did not want to get paracentesis done on an outpatient basis. Came back to the ED for further evaluation. Denies any fever chills. Patient complaining of minimal nausea. Normal bowel movement. Patient is from home. Positive history of diabetes. No chest pain or diaphoresis. No coughing or congestion or upper respiratory symptoms. Patient is from home. Related Data Home Medications Medication Instructions Recorded Confirmed insulin glargine 100 unit/mL (3 20 unit subcut DAILY 07/14/22 08/15/22 mL) subcutaneous pen (Lantus Solostar U-100 Insulin) carvedilol 3.125 mg tablet 1 tab PO BID 08/15/22 08/15/22 insulin aspart U-100 100 unit/mL See Protocol subcut TIDAC 08/15/22 08/15/22 (3 mL) subcutaneous pen (Novolog FlexPen U-100 Insulin aspart) Previous Rx's Medication Instructions Recorded omeprazole 40 mg capsule,delayed 40 mg PO BID@0630,1630 #60 caps 07/24/22 release pregabalin 25 mg capsule (Lyrica) 25 mg PO BID #60 caps 07/24/22 furosemide 40 mg tablet 40 mg PO BID@0900,1800 #60 tabs 08/22/22 lactulose 20 gram/30 mL oral 30 g (45 mL) PO DAILY #1,200 mL 08/22/22 solution midodrine 10 mg tablet 10 mg PO TIDWM #90 tabs 08/22/22 spironolactone 25 mg tablet 12.5 mg PO BID #30 tabs 08/22/22 Allergies Allergy/AdvReac Type Severity Reaction Status Date / Time No Known Allergies Allergy Verified 09/17/22 20:25 [No Known Allergies*] Review of Systems Review of Systems Positive abdominal pain Yes all other systems are reviewed and are negative PMFSH Past Medical History Attestation statement: The following information was validated with the patient. Medical History Cirrhosis Cirrhosis Diabetes (~01/31/21) Diabetes mellitus with hyperglycemia Diabetes type 2, controlled Gallstones Hepatic failure due to alcoholism HTN (hypertension) Kidney, perinephric abscess Portal hypertension SBP (spontaneous bacterial peritonitis) UTI (urinary tract infection) UTI (urinary tract infection) UTI due to extended-spectrum beta lactamase (ESBL) producing Escherichia coli Varices of other sites Family History Family History Mother No problems noted. Father No problems noted. Social History Social History Household Members: Children Household Members Other:: Patient's son Housing: House Do you presently have visiting nurse or other home services: No Alcohol intake: never Patient Tobacco Use Status: Never used Tobacco e-Cigarette/Vaping Use: Never Used Second Hand Smoke Exposure: No Advance Directives: No Advance Directives Information Provided: No Advance Directives Date on File: 06/15/21 service: No Current occupational status: unemployed and disabled Cognitive needs: No Hearing needs: No Vision needs: No Physical Exam ED Vital Signs: Vital Signs - 24 hr 09/17/22 20:20 09/17/22 22:03 09/17/22 22:35 Temperature 98 F 98.0 F Pulse Rate 95 94 Respiratory Rate 18 20 16 Blood Pressure 104/70 129/78 Pulse Oximetry 100 100 Oxygen Delivery Method Room Air Nasal Cannula Oxygen Flow Rate 2 BMI result Body Mass Index 26.1 Appearance: Alert. Oriented X3. No acute distress. Eyes: Pupils equal, round and reactive to light. ENT: Pharynx normal. Neck: Normal inspection. Neck supple. No lymph nodes noted. No crepitus CVS: Normal heart rate and rhythm. Pulses normal. Normal S1 and S2 Respiratory: No respiratory distress. Breath sounds normal. No Wheezing. No rales Abdomen: tympanitic abdomen, liver edge enlarged at about 4 finger breath below costal margin. The abdomen was distended. Nontender as such Skin: Skin warm and dry. Normal skin color. Normal skin turgor. Extremities: No lower extremity edema. Neurovascular intact to all extremities. No Lacerations. No Rash Neuro: Oriented X 3. No motor deficit. No sensory deficit. Moving all extermities. No slurred speech Medical Decision Making Medical Decision Making [facility] Narrative: Patient presented today with lots of ascites again. History of diabetes. Patient's sugar is 500. With normal bicarb normal anion gap. Unlikely to have diabetic ketoacidosis. More likely to have hyperglycemia. Will give IV fluids. Insulin ordered. Patient's LFTs are elevated. But they are about the same as few days ago. She had a CT scan on August 21. It did not show any overt obstruction/abscess, perforation, mass. [place] is unlikely that there is a problem at this point given the symptoms are the same. Patient will need a paracentesis. Given multiple ED visits. Will admit patient for further hydration, bringing down the sugar. GI consultation for the liver cirrhosis. Likely IR to tap the ascites. Patient's case discussed with the hospitalist team. Will admit for further evaluation. Admission/Observation Consideration of admission/observation: Escalation of care including admission/observation considered Patient's case discussed with the hospitalist team for admission Consult Healthcare Provider Management of the patient was discussed with: Hospitalist Lab Data [facility] Lab Attestation statement: I reviewed the patient's lab results. 09/17/22 22:09 09/17/22 22:42 Labs: Lab Results 09/17/22 09/17/22 09/17/22 Range/Units 22:09 22:09 22:42 WBC 5.4 (4.8-10.8) X10*3/uL RBC 3.79 L (4.20-5.50) X10*6/uL Hgb 11.1 L (12.0-16.0) g/dl Hct 34.0 L (37.0-47.0) % MCV 89.7 (80.0-98.0) fL MCH 29.3 (27.0-33.0) pg MCHC 32.6 (31.0-35.0) g/dl RDW 15.6 (11.0-16.0) % Plt Count 124 L (160-400) X10*3/uL MPV 10.5 (9.4-12.3) fL Immature Gran % (Auto) 0.4 (0.0-0.4) % Neut % (Auto) 75.8 H (45-73) % Lymph % (Auto) 15.1 L (20-40) % [place] % (Auto) 8.1 (2-11) % Eos % (Auto) 0.0 (0-4) % Baso % (Auto) 0.6 (0-2) % Lymph # (Auto) 0.8 L (1.2-4.9) X10*3/uL [place] # (Auto) 0.4 (0.1-1.2) X10*3/uL Eos # (Auto) 0.0 (0.0-0.4) X10*3/uL Baso # (Auto) 0.0 (0.0-0.2) X10*3/uL Abs Immat Gran (auto) 0.02 (0.00-0.03) X10*3/uL Absolute Neuts (auto) 4.1 (2.0-8.3) x10*3/uL Absolute Nucleated RBC 0.000 (0.0-0.012) X10*3/uL Nucleated RBC % (auto) 0.0 (0.0-0.2) /100WBC PT 17.7 H (10.0-13.1) SEC INR 1.5 H (0.9-1.1) Sodium 138 (135-145) mmol/L Potassium 4.3 (3.3-5.1) mmol/L Chloride 106 (96-108) mmol/L Carbon Dioxide 23 (22-29) mmol/L Anion Gap 13 (12-20) BUN 18 H (9-16) mg/dL Creatinine 0.97 (0.5-1.4) mg/dL Estim Creat Clear Calc 61.8 Estimated GFR 59 Random Glucose 500 H* (60-115) mg/dL Calcium 8.0 L (8.4-10.2) mg/dL Total Bilirubin 1.6 H (0.0-1.0) mg/dL Direct Bilirubin 0.6 H (0.0-0.5) mg/dL AST 33 H (5-31) U/L ALT 22 (0-31) U/L Alkaline Phosphatase 176 H (39-117) U/L Total Protein 5.9 L (6.5-8.0) g/dL Albumin 2.5 L (3.5-5.0) g/dL Lipase 18 (8-78) U/L External Record Review External record reviewed: Inpatient record patient old ER record was reviewed Chronic Conditions Patient?s care impacted by: Diabetes and Hypertension liver cirrhosis Medications Administered Generic Name Dose Route Start Last Admin Trade Name Penny PRN Reason Stop Dose Admin Sodium Chloride 1,000 mls @ 999 mls/hr 09/17/22 23:30 09/17/22 23:26 Ns IV 09/18/22 00:30 999 mls/hr .[id number] ODALYS Administration Discontinued Medications Generic Name Dose Route Start Last Admin Trade Name Penny PRN Reason Stop Dose Admin Hydromorphone HCl 0.5 mg 09/17/22 21:32 09/17/22 22:03 Hydromorphone Hcl 1 Mg/Ml Syringe IVPUSH 09/17/22 21:33 0.5 mg ONCE ONE Administration Protocol Ondansetron HCl 4 mg 09/17/22 21:32 09/17/22 22:02 Ondansetron Hcl 4 Mg/2 Ml Vial IVPUSH 09/17/22 21:33 4 mg ONCE ONE Administration Discharge Plan Discharge Clinical Impression: Cirrhosis, Ascites, Hyperglycemia Prescriptions: No Action insulin glargine [Lantus Solostar U-100 Insulin] 100 unit/mL (3 mL) insulin pen 20 unit subcut DAILY omeprazole 40 mg Capsule,Delayed Release(Dr/Ec) 40 mg PO BID@0630,1630 Qty: 60 0RF pregabalin [Lyrica] 25 mg Capsule 25 mg PO BID Qty: 60 0RF carvedilol 3.125 mg tablet 1 tab PO BID insulin aspart U-100 [Novolog FlexPen U-100 Insulin] 100 unit/mL (3 mL) insulin pen See Protocol subcut TIDAC Protocol: Insulin Correction Scale Less than or equal to 110 ---- Give (units): 0 111 to 150 Give (units): 0 151 to 200 Give (units): 2 201 to 250 Give (units): 4 251 to 300 Give (units): 6 301 to 350 Give (units): 8 Greater than 350 Give (units): 10 Call MD if Blood Glucose > : 350 furosemide 40 mg Tablet 40 mg PO BID@0900,1800 Qty: 60 0RF Protocol: Hold for SBP< HOLD for SBP < : 90 midodrine 10 mg Tablet 10 mg PO TIDWM Qty: 90 0RF lactulose 20 gram/30 mL Solution 30 g PO DAILY Qty: 1200 0RF spironolactone 25 mg Tablet 12.5 mg PO BID Qty: 30 0RF Protocol: Hold for SBP< HOLD for SBP < : 90
[2022-09-17] MEDS: ondansetron HCL 4 MG/2 ML VIAL IVPUSH (22:02)
[2022-09-17 22:03] VITALS: RESP 20
[2022-09-17] MEDS: HYDROmorphone HCl 1 MG/ML SYRINGE 0.5 MG IVPUSH (22:03)
[2022-09-17 22:16] LABS: Basophils Percent Auto 0.6 % (0-2); Hemoglobin 11.1 g/dl (12.0-16.0); Imm Gran Abs Auto 0.02 X10*3/uL (0.00-0.03); Imm Gran Pct Auto 0.4 % (0.0-0.4); Lymphocytes Absolute Auto 0.8 X10*3/uL (1.2-4.9); Lymphocytes Percent Auto 15.1 % (20-40); MANUAL DIFF FLAG NO; Mean Corpuscular HGB Conc 32.6 g/dl (31.0-35.0); Mean Corpuscular Hemoglobin 29.3 pg (27.0-33.0); Mean Corpuscular Volume 89.7 fL (80.0-98.0); Mean Platelet Volume 10.5 fL (9.4-12.3); Monocytes Absolute Auto 0.4 X10*3/uL (0.1-1.2); Monocytes Percent Auto 8.1 % (2-11); Neutrophils Absolute Auto 4.1 x10*3/uL (2.0-8.3); Neutrophils Percent Auto 75.8 % (45-73); Platelet Count 124 X10*3/uL (160-400); Red Blood Count 3.79 X10*6/uL (4.20-5.50); Red Cell Distribution Width 15.6 % (11.0-16.0); White Blood Count 5.4 X10*3/uL (4.8-10.8)
[2022-09-17 22:24] LABS: INTERNATIONAL NORM RATIO 1.5 (0.9-1.1); Prothrombin Time 17.7 SEC (10.0-13.1)
[2022-09-17 22:33] VITALS: BP 107/59; PULSE 97; RESP 18; TEMP 36.6
[2022-09-17 22:35] VITALS: BP 129/78; PULSE 94; RESP 16; TEMP 36.7; O2SAT 100
[2022-09-17 23:10] LABS: Alanine Aminotransferase 22 U/L (0-31); Albumin Level 2.5 g/dL (3.5-5.0); Alkaline Phosphatase 176 U/L (39-117); Anion Gap 13 (12-20); Aspartate Amino Transferase 33 U/L (5-31); Bilirubin Direct 0.6 mg/dL (0.0-0.5); Bilirubin Total 1.6 mg/dL (0.0-1.0); Blood Urea Nitrogen 18 mg/dL (9-16); Carbon Dioxide 23 mmol/L (22-29); Chloride 106 mmol/L (96-108); Creatinine Clr Calc Pharmacy 61.8; Estimated Glomerular Filt Rate 59; Lipase 18 U/L (8-78); Potassium 4.3 mmol/L (3.3-5.1); Sodium 138 mmol/L (135-145); Total Protein 5.9 g/dL (6.5-8.0)
[2022-09-17 23:18] LABS: Glucose Random 500 mg/dL (60-115)
[2022-09-17] MEDS: Insulin Regular, Human 100 UNIT/ML 3 ML VIAL 10 UNIT IVPUSH (23:26)
[2022-09-17] MEDS: 0.9 % Sodium Chloride 1,000 ML 999 ML IV (23:26)
--- NOTE | 2022-09-17 23:31 | PM.IMHP ---
History of Present Illness Date of Service: 09/17/22 Chief Complaint: Abdominal Pain this is a 57-year-old female with pertinent history of cirrhosis, insulin-dependent diabetes mellitus, gastroesophageal reflux disease, essential hypertension who presents to the emergency department for evaluation of abdominal discomfort. Patient was seen in the ER and underwent paracentesis on 09/06 and 09/13. Approximately 13-14 L ascitic fluid drained during the last 2 visits with 7 L drained on 09/13 By IR. Patient states she started having abdominal discomfort with swelling and epigastric pain that started yesterday. It has been constant and without any radiation. The pain has become progressive along with the swelling. States she is compliant with her diuretics. No fever, nausea, vomiting, hematemesis, melena, hematochezia, changes in urinary or bowel habits. States she is compliant with insulin for her diabetes mellitus. in the emergency department, blood glucose was noted to be in the 500s. Marked abdominal swelling noted Review of Systems Constitutional: Constitutional: Reports no additional constitutional complaints Cardiovascular: Cardiovascular: Reports no additional cardiovascular complaints Respiratory: Respiratory: Reports no additional respiratory complaints Gastrointestinal: Gastrointestinal: Reports abdominal pain and Reports early satiety Genitourinary: Genitourinary: Reports no additional female genitourinary complaints [facility] Medical History Cirrhosis Cirrhosis Diabetes (~01/31/21) Diabetes mellitus with hyperglycemia Diabetes type 2, controlled Gallstones Hepatic failure due to alcoholism HTN (hypertension) Kidney, perinephric abscess Portal hypertension SBP (spontaneous bacterial peritonitis) UTI (urinary tract infection) UTI (urinary tract infection) UTI due to extended-spectrum beta lactamase (ESBL) producing Escherichia coli Varices of other sites Family History Mother No problems noted. Father No problems noted. Social History Household Members: Children Household Members Other:: Patient's son Housing: House Do you presently have visiting nurse or other home services: No Alcohol intake: never Patient Tobacco Use Status: Never used Tobacco Smoked in Last 30 Days: No e-Cigarette/Vaping Use: Never Used Second Hand Smoke Exposure: No Use of substances other than those prescribed or required for medical reasons: No Advance Directives: No Advance Directives Information Provided: No Advance Directives Date on File: 06/15/21 Nutrition Risks: No Nutritional Risk Patient : No service: No Current occupational status: unemployed and disabled Cognitive needs: No Hearing needs: No Vision needs: No Meds Allergies Allergy/AdvReac Type Severity Reaction Status Date / Time No Known Allergies Allergy Verified 09/17/22 20:25 [No Known Allergies*] Active Medications: Current Medications Dextrose (Dextrose 50 % 25 Gm/50 Ml Syringe) 25 gm IVPUSH Q15M PRN; Protocol PRN Reason: per Hypoglycemia Standing Ord. Glucose (Glucose Gel 15 Gm Gel..Gram.) 15 gm PO Q15M PRN; Protocol PRN Reason: per Hypoglycemia Standing Ord. Sodium Chloride (Ns) 1,000 mls @ 999 mls/hr IV .Q1H1M [facility] Stop: 09/18/22 00:30 Last Admin: 09/17/22 23:26 Dose: 999 mls/hr Insulin Glargine (Insulin Glargine,Hum.Rec.Anlog 100 Unit/Ml 10 Ml Vial) 20 unit SUBCUT BEDTIME [facility] Insulin Human Lispro (Insulin Lispro 100 Unit/Ml 3 Ml Vial) 0 unit SUBCUT QIDACHS [facility]; Protocol Melatonin (Melatonin 3 Mg Tablet) 6 mg PO BEDTIME PRN PRN Reason: Insomnia Ondansetron HCl (Ondansetron Hcl 4 Mg/2 Ml Vial) 4 mg IVPUSH Q8H PRN PRN Reason: Nausea and Vomiting Pharmacy Consult (Consult Rx Perform Med Rec) 1 each MISCELLANE ONCE PRN PRN Reason: Consult order Sodium Chloride (0.9 % Sodium Chloride Flush 3 Ml Syringe) 3 ml IVFLUSH QSHIFT [facility] Home Medications Medication Instructions Recorded Confirmed Last Taken Type insulin glargine 100 unit/mL (3 20 unit subcut DAILY 07/14/22 08/15/22 08/14/22 History mL) subcutaneous pen (Lantus Solostar U-100 Insulin) carvedilol 3.125 mg tablet 1 tab PO BID 08/15/22 08/15/22 Unknown History insulin aspart U-100 100 unit/mL See Protocol subcut TIDAC 08/15/22 08/15/22 Unknown History (3 mL) subcutaneous pen (Novolog FlexPen U-100 Insulin aspart) Physical Exam Vital Signs and Narrative: Vital Signs: Last Vital Signs Temp 98.0 F 09/17/22 22:35 Pulse 94 09/17/22 22:35 Resp 16 09/17/22 22:35 BP 129/78 09/17/22 22:35 Pulse Ox 100 09/17/22 22:35 O2 Del Method 09/17/22 22:35 O2 Flow Rate 2 09/17/22 22:35 BMI result Body Mass Index 26.1 middle-aged female lying in bed in mild distress Neck supple, no JVD Regular rate and rhythm, S1-S2 heard Regular breath sounds bilaterally, no wheezing or crackles appreciated Abdomen markedly distended with epigastric tenderness to palpation, no guarding, no rigidity, no rebound tenderness Patient is awake, alert and oriented to self, place, time and person ; no focal motor deficit Psych: tearful Results Labs 09/17/22 22:09 09/17/22 22:42 Labs: Laboratory Results - last 24 hr 09/17/22 09/17/22 09/17/22 22:09 22:09 22:42 MCV 89.7 MCH 29.3 MCHC 32.6 RDW 15.6 Plt Count 124 L MPV 10.5 Immature Gran % (Auto) 0.4 Neut % (Auto) 75.8 H Lymph % (Auto) 15.1 L [place] % (Auto) 8.1 Eos % (Auto) 0.0 Baso % (Auto) 0.6 Lymph # (Auto) 0.8 L [place] # (Auto) 0.4 Eos # (Auto) 0.0 Baso # (Auto) 0.0 Abs Immat Gran (auto) 0.02 Absolute Neuts (auto) 4.1 Absolute Nucleated RBC 0.000 Nucleated RBC % (auto) 0.0 PT 17.7 H INR 1.5 H Anion Gap 13 Estim Creat Clear Calc 61.8 Estimated GFR 59 Random Glucose 500 H* Calcium 8.0 L Total Bilirubin 1.6 H Direct Bilirubin 0.6 H AST 33 H ALT 22 Alkaline Phosphatase 176 H Total Protein 5.9 L Albumin 2.5 L Lipase 18 Assessment and Plan (1) Ascites: Status: Acute (2) Liver cirrhosis: Status: Acute Plan this is a 57-year-old female with pertinent history of cirrhosis, insulin-dependent diabetes mellitus, gastroesophageal reflux disease, essential hypertension who presents to the emergency department for evaluation of abdominal discomfort. #. abdominal discomfort #. ascites due to decompensated cirrhosis - will admit patient and initiate empiric IV Rocephin until is BP is ruled out. Diagnostic and therapeutic paracentesis in a.m.. Consulting GI, optimize diuretics. Ammonia pending. #. insulin-dependent diabetes mellitus with uncontrolled hyperglycemia: Placed on basal plus regimen. Initiated Accu-Cheks with sliding scale insulin and initiate basal bolus regimen accordingly #. Thrombocytopenia and coagulopathy due to cirrhosis #. hypoalbuminemia in the setting of cirrhosis #. chronic normocytic anemia related to chronic disease med rec pending DVT prophylaxis: SCD Full Code low-sodium diet Admit as inpatient and will require two night minimum hospital stay for management of refractory ascites Time Spent With Patient Time: Total time managing care of this patient today ____ minutes. Quality Stroke Does the patient have a stroke diagnosis?: No VTE Prior VTE?: No VTE Risk Level:: Medical - moderate - high VTE Device Contraindication: N/A - Device Ordered VTE Drug Contraindication: Treatment Not Indicated
[2022-09-17 23:36] LABS: Acetone, serum QL Negative (Negative)
[2022-09-17 23:43] VITALS: BP 119/68; PULSE 93; RESP 18; O2SAT 99
[2022-09-17] MEDS: Insulin Glargine,Hum.rec.anlog 100 UNIT/ML 10 ML VIAL 20 UNIT SUBCUT (23:52)
[2022-09-17 23:53] VITALS: RESP 18
[2022-09-17] MEDS: HYDROmorphone HCl 0.5 MG/0.5 ML SYRINGE IVPUSH (23:53)
[2022-09-18] VITALS (9 sets, daily range): BP systolic 95–120; BP diastolic 52–85; PULSE 71–99; RESP 14–18; TEMP 36–36.7; O2SAT 95–100
[2022-09-18] MEDS: 0.9 % Sodium Chloride Flush 3 ML SYRINGE IVFLUSH ×3 (00:08→20:18)
[2022-09-18] MEDS: Furosemide 40 MG/4 ML VIAL IVPUSH (00:15)
[2022-09-18] MEDS: cefTRIAXone sodium 1 GM in 0.9 % Sodium Chloride 50 ML IV (00:15)
[2022-09-18 01:04] LABS: Appearance Urine Clear; Color Urine Yellow; Glucose Urine UA >=1000 mg/dL (Negative); Leukocyte Esterase Urine Small (1+) (Negative); Nitrite Urine Negative (Negative); PH 5.5 (5.0-9.0); Specific Gravity - Urine 1.025 (1.005-1.025); UMIC TRIGGER UACC YES; Urine Blood Negative (Negative); Urine Ketones Trace mg/dL (Negative); Urine Protein Negative (Neg-Trace)
--- NOTE | 2022-09-18 01:14 | PC.NURSE ---
PT tolerating PO fluids. Repeat POC 334.
[2022-09-18 01:18] LABS: Glucose, Whole Blood 334 mg/dL (60-115)
[2022-09-18 01:21] LABS: Bacteria Urine Trace (None Seen); Hyaline Casts Urine 0-2 /LPF (0-2); RBC Urine 0-2 /HPF (0-2); Squamous Epithelial Cell Urine 0-2 /HPF (0-2); UACC Culture Trigger YES
[2022-09-18 01:24] LABS: Ammonia 78 umol/L (13-55)
--- NOTE | 2022-09-18 04:34 | PC.NURSE ---
PT sleeping, no apparent distress. VSS. Will CTM.
[2022-09-18] MEDS: Morphine Sulfate 4 MG/ML CARTRIDGE IVPUSH ×2 (04:51→17:34)
[2022-09-18 05:07] LABS: Estimated Average Glucose 263 mg/dL; Hemoglobin A1c % 10.8 %
[2022-09-18 05:09] LABS: Glucose, Whole Blood 403 mg/dL (60-115)
--- NOTE | 2022-09-18 05:36 | PC.NURSE ---
POC 403, Dr. Thomson notified, no new orders at this time.
[2022-09-18 06:29] LABS: COVID-19 Test Negative (Negative); IDNOW Serial# 08D9AD1C
[2022-09-18 07:03] LABS: Glucose, Whole Blood 454 mg/dL (60-115)
[2022-09-18 07:07] LABS: MANUAL DIFF FLAG NO
[2022-09-18 07:15] LABS: Basophils Percent Auto 0.5 % (0-2); Hematocrit 36.3 % (37.0-47.0); Hemoglobin 11.6 g/dl (12.0-16.0); Imm Gran Abs Auto 0.01 X10*3/uL (0.00-0.03); Imm Gran Pct Auto 0.2 % (0.0-0.4); Lymphocytes Absolute Auto 0.9 X10*3/uL (1.2-4.9); Lymphocytes Percent Auto 15.4 % (20-40); Mean Corpuscular Hemoglobin 29.1 pg (27.0-33.0); Mean Corpuscular Volume 91.2 fL (80.0-98.0); Mean Platelet Volume 11.6 fL (9.4-12.3); Monocytes Absolute Auto 0.5 X10*3/uL (0.1-1.2); Monocytes Percent Auto 8.5 % (2-11); Neutrophils Absolute Auto 4.6 x10*3/uL (2.0-8.3); Neutrophils Percent Auto 75.4 % (45-73); Platelet Count 134 X10*3/uL (160-400); Red Blood Count 3.98 X10*6/uL (4.20-5.50); Red Cell Distribution Width 15.8 % (11.0-16.0); White Blood Count 6.1 X10*3/uL (4.8-10.8)
[2022-09-18] MEDS: Insulin Lispro 100 UNIT/ML 3 ML VIAL SUBCUT ×2 (07:24→20:35)
[2022-09-18] MEDS: oxyCODONE HCl Immed Release 5 MG TABLET PO (07:25)
[2022-09-18 07:51] LABS: Anion Gap 14 (12-20); Blood Urea Nitrogen 16 mg/dL (9-16); Calcium 7.8 mg/dL (8.4-10.2); Carbon Dioxide 24 mmol/L (22-29); Chloride 105 mmol/L (96-108); Creatinine Clr Calc Pharmacy 58.1; Estimated Glomerular Filt Rate 55; Glucose Random 492 mg/dL (60-115); Potassium 4.2 mmol/L (3.3-5.1); Sodium 139 mmol/L (135-145)
--- NOTE | 2022-09-18 07:58 | PC.NURSE ---
patient drowsy, oriented x4. abd is round, distended and tender. one time dose of Oxy given for pain. call raphael within reach.
--- NOTE | 2022-09-18 08:14 | PHA.MEDREC ---
Pharmacy Consult ? Medication Reconciliation Pharmacy has completed the medication reconciliation.
[2022-09-18] MEDS: Insulin Lispro 100 UNIT/ML 3 ML VIAL 6 UNIT SUBCUT (08:41)
[2022-09-18] MEDS: Midodrine HCl 10 MG TABLET PO ×3 (08:42→16:49)
[2022-09-18] MEDS: Lactulose 20 GM/30 ML SOLUTION 30 GM PO ×2 (08:42→20:16)
[2022-09-18] MEDS: carvediloL 3.125 MG TABLET PO ×2 (08:42→20:17)
[2022-09-18] MEDS: Furosemide 40 MG TABLET PO (08:42)
[2022-09-18] MEDS: Pregabalin 25 MG CAPSULE PO ×2 (08:42→20:17)
[2022-09-18] MEDS: Spironolactone 25 MG TABLET PO ×2 (08:43→16:49)
--- NOTE | 2022-09-18 10:08 | PC.NURSE ---
Transport here to bring patient to IR department
--- NOTE | 2022-09-18 11:22 | PC.NURSE ---
patient returned to ED from IR department. VSS.
[2022-09-18] MEDS: Lidocaine HCl 1 % MPF 5 ML VIAL SUBCUT (11:32)
[2022-09-18 12:12] LABS: MN% 94.9 %; PMN% 5.1 %; WBC Peritoneal Fluid 0.045 X10*3/uL
[2022-09-18] MEDS: Dextrose 50 % 25 GM/50 ML SYRINGE IVPUSH (12:32)
[2022-09-18 12:34] LABS: RBC Peritoneal Fluid < 0.002 X10*6/uL
--- NOTE | 2022-09-18 12:39 | PC.NURSE ---
POCT 23. made aware. given two glasses or orange juice with sugar and 1 amp of dextrose per PRN order. recheck of POCT 177. will continue to monitor sugar levels
[2022-09-18 12:42] LABS: Glucose, Whole Blood 23 mg/dL (60-115)
[2022-09-18 12:42] LABS: Glucose, Whole Blood 177 mg/dL (60-115)
--- NOTE | 2022-09-18 12:47 | MHC.CM.PN ---
CM met with Patient at bedside and addressed IMM with her (original given to her and a copy will be placed on the chart). Patient lives in a house with her Son and she uses a walker to assist with mobility. Home/self care is the goasl and CM has initiated and will follow for dc planning. PCP is Dr. Eden Carrillo and Patient has received iWarda/[place] vax x2.
[2022-09-18 13:06] LABS: Glucose, Whole Blood 105 mg/dL (60-115)
[2022-09-18 13:45] LABS: BF Shift QC OK YES; Basophils Peritoneal Fl 2 %; Lymphocyte Peritoneal Fl 60 %; Man Diluent Bkgrd OK YES; Monocytes Peritoneal Fl 8 %; Neutrophils Peritoneal Fluid 4 %; Other Peritioneal Fl 26 %
--- NOTE | 2022-09-18 13:46 | HO.PM.IMPN ---
Subjective Subjective Date of Service: 09/19/22 Interval History: Resting in bed , denies nausea vomiting, mild abdominal discomfort is scheduled for paracentesis , denies shortness of breath, no chest pain, no palpitation, no fevers, no chills, no headache, no dizziness. Review of Systems Review of Systems: Yes all other systems are reviewed and are negative Physical Exam Vital Signs: Vital Signs: Last Vital Signs Temp 98.1 F 09/18/22 11:45 Pulse 82 09/18/22 12:16 Resp 16 09/18/22 12:16 BP 104/59 L 09/18/22 12:16 Pulse Ox 95 09/18/22 12:16 O2 Del Method 09/18/22 12:16 O2 Flow Rate 2 09/17/22 23:43 BMI result Body Mass Index 26.1 Const: Other: General resting comfortably in no acute distress. Neck supple no JVD. CVS regular rate rhythm, Respiratory lungs clear to auscultation, no respiratory distress, no wheeze, no rhonchi. Gastrointestinal abdomen distended, nontender, bowel sounds audible, no guarding , no rigidity. Extremities no edema. Neuro nonfocal , speech clear, no asterixis Skin no rash Objective Data Active Medications Carvedilol (Carvedilol 3.125 Mg Tablet) 3.125 mg PO BID [facility]; Protocol Last Admin: 09/18/22 08:42 Dose: 3.125 mg Documented By: BALAJI Dextrose (Dextrose 50 % 25 Gm/50 Ml Syringe) 25 gm IVPUSH Q15M PRN; Protocol PRN Reason: per Hypoglycemia Standing Ord. Last Admin: 09/18/22 12:32 Dose: 25 gm Documented By: BALAJI Furosemide (Furosemide 40 Mg Tablet) 40 mg PO DAILY [facility]; Protocol Last Admin: 09/18/22 08:42 Dose: 40 mg Documented By: BALAJI Glucose (Glucose Gel 15 Gm Gel..Gram.) 15 gm PO Q15M PRN; Protocol PRN Reason: per Hypoglycemia Standing Ord. Insulin Glargine (Insulin Glargine,Hum.Rec.Anlog 100 Unit/Ml 10 Ml Vial) 20 unit SUBCUT BEDTIME [facility] Last Admin: 09/17/22 23:52 Dose: 20 unit Documented By: REBECCA Insulin Human Lispro (Insulin Lispro 100 Unit/Ml 3 Ml Vial) 0 unit SUBCUT QIDACHS [facility]; Protocol Last Admin: 09/18/22 12:32 Dose: Not Given Documented By: BALAJI Non-Admin Reason: No Insulin Coverage Lactulose (Lactulose 20 Gm/30 Ml Solution) 30 gm PO BID [facility] Last Admin: 09/18/22 08:42 Dose: 30 gm Documented By: BALAJI Melatonin (Melatonin 3 Mg Tablet) 6 mg PO BEDTIME PRN PRN Reason: Insomnia Midodrine (Midodrine Hcl 10 Mg Tablet) 10 mg PO TIDWM [facility] Last Admin: 09/18/22 13:06 Dose: 10 mg Documented By: BALAJI Morphine Sulfate (Morphine Sulfate 4 Mg/Ml Cartridge) 4 mg IVPUSH Q6H PRN; Protocol PRN Reason: Pain, Severe (Pain Scale 7-10) Last Admin: 09/18/22 04:51 Dose: 4 mg Documented By: REBECCA Omeprazole (Omeprazole 40 Mg Capsule.) 40 mg PO BID@0630,1630 [facility] Last Admin: 09/18/22 08:48 Dose: Not Given Documented By: BALAJI Non-Admin Reason: Patient Refused Ondansetron HCl (Ondansetron Hcl 4 Mg/2 Ml Vial) 4 mg IVPUSH Q8H PRN PRN Reason: Nausea and Vomiting Pharmacy Consult (Consult Rx Perform Med Rec) 1 each MISCELLANE ONCE PRN PRN Reason: Consult order Pregabalin (Pregabalin 25 Mg Capsule) 25 mg PO BID [facility] Last Admin: 09/18/22 08:42 Dose: 25 mg Documented By: BALAJI Sodium Chloride (0.9 % Sodium Chloride Flush 3 Ml Syringe) 3 ml IVFLUSH QSHIFT [facility] Last Admin: 09/18/22 07:25 Dose: 3 ml Documented By: BALAJI Spironolactone (Spironolactone 25 Mg Tablet) 25 mg PO BID@0900,1800 [facility]; Protocol Last Admin: 09/18/22 08:43 Dose: 25 mg Documented By: BALAJI Labs 09/18/22 06:49 09/18/22 06:49 Labs: Laboratory Results - last 24 hr 09/17/22 09/17/2209/17/23 22:09 22:09 22:42 MCV 89.7 MCH 29.3 MCHC 32.6 RDW 15.6 Plt Count 124 L MPV 10.5 Immature Gran % (Auto) 0.4 Neut % (Auto) 75.8 H Lymph % (Auto) 15.1 L [place] % (Auto) 8.1 Eos % (Auto) 0.0 Baso % (Auto) 0.6 Lymph # (Auto) 0.8 L [place] # (Auto) 0.4 Eos # (Auto) 0.0 Baso # (Auto) 0.0 Abs Immat Gran (auto) 0.02 Absolute Neuts (auto) 4.1 Absolute Nucleated RBC 0.000 Nucleated RBC % (auto) 0.0 PT 17.7 H INR 1.5 H Anion Gap 13 Estim Creat Clear Calc 61.8 Estimated GFR 59 POC Glucose Random Glucose 500 H* Estimat Average Glucose Hemoglobin A1c % Calcium 8.0 L Total Bilirubin 1.6 H Direct Bilirubin 0.6 H AST 33 H ALT 22 Alkaline Phosphatase 176 H Ammonia Total Protein 5.9 L Albumin 2.5 L Lipase 18 Urine Color Urine Appearance Urine pH Ur Specific [place] Urine Protein Urine Glucose (UA) Urine Ketones Urine Blood Urine Nitrite Ur Leukocyte Esterase Urine RBC Urine WBC Ur Squamous Epith Cells Urine Bacteria Hyaline Casts Urine Yeast Peritoneal WBC Peritoneal RBC [place] Neutrophils [place] Lymphocytes Peritoneal Monocytes Peritoneal Basophils Peritoneal Other Cells Acetone, Qual COVID-19 ([facility]) COVID-19 Clin Com 09/17/22 09/17/22 09/18/22 22:42 22:42 00:57 MCV MCH MCHC RDW Plt Count MPV Immature Gran % (Auto) Neut % (Auto) Lymph % (Auto) [place] % (Auto) Eos % (Auto) Baso % (Auto) Lymph # (Auto) [place] # (Auto) Eos # (Auto) Baso # (Auto) Abs Immat Gran (auto) Absolute Neuts (auto) Absolute Nucleated RBC Nucleated RBC % (auto) PT INR Anion Gap Estim Creat Clear Calc Estimated GFR POC Glucose Random Glucose Estimat Average Glucose 263 Hemoglobin A1c % 10.8 Calcium Total Bilirubin Direct Bilirubin AST ALT Alkaline Phosphatase Ammonia Total Protein Albumin Lipase Urine Color Yellow Urine Appearance Clear Urine pH 5.5 Ur Specific [place] 1.025 Urine Protein Negative Urine Glucose (UA) >=1000 H Urine Ketones Trace Urine Blood Negative Urine Nitrite Negative Ur Leukocyte Esterase Small (1+) H Urine RBC 0-2 Urine WBC 6-10 Ur Squamous Epith Cells 0-2 Urine Bacteria Trace Hyaline Casts 0-2 Urine Yeast Present Peritoneal WBC Peritoneal RBC [place] Neutrophils [place] Lymphocytes Peritoneal Monocytes Peritoneal Basophils Peritoneal Other Cells Acetone, Qual Negative COVID-19 ([facility]) COVID-19 Clin Com 09/18/22 09/18/22 09/18/22 01:05 01:10 05:04 MCV MCH MCHC RDW Plt Count MPV Immature Gran % (Auto) Neut % (Auto) Lymph % (Auto) [place] % (Auto) Eos % (Auto) Baso % (Auto) Lymph # (Auto) [place] # (Auto) Eos # (Auto) Baso # (Auto) Abs Immat Gran (auto) Absolute Neuts (auto) Absolute Nucleated RBC Nucleated RBC % (auto) PT INR Anion Gap Estim Creat Clear Calc Estimated GFR POC Glucose 334 H 403 H* Random Glucose Estimat Average Glucose Hemoglobin A1c % Calcium Total Bilirubin Direct Bilirubin AST ALT Alkaline Phosphatase Ammonia 78 H Total Protein Albumin Lipase Urine Color Urine Appearance Urine pH Ur Specific [place] Urine Protein Urine Glucose (UA) Urine Ketones Urine Blood Urine Nitrite Ur Leukocyte Esterase Urine RBC Urine WBC Ur Squamous Epith Cells Urine Bacteria Hyaline Casts Urine Yeast Peritoneal WBC Peritoneal RBC [place] Neutrophils [place] Lymphocytes Peritoneal Monocytes Peritoneal Basophils Peritoneal Other Cells Acetone, Qual COVID-19 ([facility]) COVID-19 Clin Com 09/18/22 09/18/22 09/18/22 06:02 06:49 06:49 MCV 91.2 MCH 29.1 MCHC 32.0 RDW 15.8 Plt Count 134 L MPV 11.6 Immature Gran % (Auto) 0.2 Neut % (Auto) 75.4 H Lymph % (Auto) 15.4 L [place] % (Auto) 8.5 Eos % (Auto) 0.0 Baso % (Auto) 0.5 Lymph # (Auto) 0.9 L [place] # (Auto) 0.5 Eos # (Auto) 0.0 Baso # (Auto) 0.0 Abs Immat Gran (auto) 0.01 Absolute Neuts (auto) 4.6 Absolute Nucleated RBC 0.000 Nucleated RBC % (auto) 0.0 PT INR Anion Gap 14 Estim Creat Clear Calc 58.1 Estimated GFR 55 POC Glucose Random Glucose 492 H* Estimat Average Glucose Hemoglobin A1c % Calcium 7.8 L Total Bilirubin Direct Bilirubin AST ALT Alkaline Phosphatase Ammonia Total Protein Albumin Lipase Urine Color Urine Appearance Urine pH Ur Specific [place] Urine Protein Urine Glucose (UA) Urine Ketones Urine Blood Urine Nitrite Ur Leukocyte Esterase Urine RBC Urine WBC Ur Squamous Epith Cells Urine Bacteria Hyaline Casts Urine Yeast Peritoneal WBC Peritoneal RBC Periton Neutrophils [place] Lymphocytes Peritoneal Monocytes Peritoneal Basophils Peritoneal Other Cells Acetone, Qual COVID-19 ([facility]) Negative COVID-19 Clin Com See Note 09/18/22 09/18/22 09/18/22 06:59 10:30 12:25 MCV MCH MCHC RDW Plt Count MPV Immature Gran % (Auto) Neut % (Auto) Lymph % (Auto) [place] % (Auto) Eos % (Auto) Baso % (Auto) Lymph # (Auto) [place] # (Auto) Eos # (Auto) Baso # (Auto) Abs Immat Gran (auto) Absolute Neuts (auto) Absolute Nucleated RBC Nucleated RBC % (auto) PT INR Anion Gap Estim Creat Clear Calc Estimated GFR POC Glucose 454 H* 23 L* Random Glucose Estimat Average Glucose Hemoglobin A1c % Calcium Total Bilirubin Direct Bilirubin AST ALT Alkaline Phosphatase Ammonia Total Protein Albumin Lipase Urine Color Urine Appearance Urine pH Ur Specific [place] Urine Protein Urine Glucose (UA) Urine Ketones Urine Blood Urine Nitrite Ur Leukocyte Esterase Urine RBC Urine WBC Ur Squamous Epith Cells Urine Bacteria Hyaline Casts Urine Yeast Peritoneal WBC 0.045 Peritoneal RBC < 0.002 [place] Neutrophils 4 [place] Lymphocytes 60 Peritoneal Monocytes 8 Peritoneal Basophils 2 Peritoneal Other Cells 26 Acetone, Qual COVID-19 ([facility]) COVID-19 Clin Com 09/18/22 09/18/22 12:37 12:57 MCV MCH MCHC RDW Plt Count MPV Immature Gran % (Auto) Neut % (Auto) Lymph % (Auto) [place] % (Auto) Eos % (Auto) Baso % (Auto) Lymph # (Auto) [place] # (Auto) Eos # (Auto) Baso # (Auto) Abs Immat Gran (auto) Absolute Neuts (auto) Absolute Nucleated RBC Nucleated RBC % (auto) PT INR Anion Gap Estim Creat Clear Calc Estimated GFR POC Glucose 177 H 105 Random Glucose Estimat Average Glucose Hemoglobin A1c % Calcium Total Bilirubin Direct Bilirubin AST ALT Alkaline Phosphatase Ammonia Total Protein Albumin Lipase Urine Color Urine Appearance Urine pH Ur Specific [place] Urine Protein Urine Glucose (UA) Urine Ketones Urine Blood Urine Nitrite Ur Leukocyte Esterase Urine RBC Urine WBC Ur Squamous Epith Cells Urine Bacteria Hyaline Casts Urine Yeast Peritoneal WBC Peritoneal RBC Periton Neutrophils Periton Lymphocytes Peritoneal Monocytes Peritoneal Basophils Peritoneal Other Cells Acetone, Qual COVID-19 ([facility]) COVID-19 Clin Com Microbiology Microbiology Results: Microbiology 09/18/22 10:30 Gram Stain - Final Ascites Fluid Assessment and Plan (1) Ascites: Status: Acute (2) Liver cirrhosis: Status: Acute Plan 57-year-old female with pertinent history of cirrhosis, insulin-dependent diabetes mellitus, gastroesophageal reflux disease, essential hypertension who presents to the emergency department for evaluation of abdominal discomfort. ?#. Ascites due to decompensated cirrhosis with abdominal discomfort No abdominal pain at present resting comfortably scheduled for therapeutic and diagnostic paracentesis On empiric IV Rocephin until SBP is ruled out.? Elevated ammonia level will increase dose of lactulose to 30 g b.i.d., await GI input ?#. insulin-dependent diabetes mellitus with uncontrolled hyperglycemia:? Continue Lantus 15 units at bedtime and insulin sliding scale recommend diabetic diet ? #.Thrombocytopenia and coagulopathy due to cirrhosis, no active bleeding noted ?#. hypoalbuminemia in the setting of cirrhosis, encourage high-protein diet ?#. chronic normocytic anemia related to chronic disease, stable hematocrit ? ?DVT prophylaxis:? SCD ?Full Code ? Continue inpatient hospitalization for management of refractory and ascites requiring paracentesis and treatment for hyperammonia. ? Time Spent With Patient Time: Total time managing care of this patient today ____ minutes. Quality Stroke Does the patient have a stroke diagnosis?: No VTE Prior VTE?: No VTE Risk Level:: Medical - moderate - high VTE Device Contraindication: N/A - Device Ordered VTE Drug Contraindication: Treatment Not Indicated
[2022-09-18 14:57] LABS: Glucose, Whole Blood 88 mg/dL (60-115)
--- NOTE | 2022-09-18 16:13 | P.EN_ITS ---
Event Note Date of Service: 09/18/22 Event Note: GI consult dictated. Cirrhosis with ascites, s/p 7L paracentesis today. Rec: 25% Albumin 7g/L for each large volume paracentesis >5L Check with renal on diuretic regimen, (last note recommended furosemide 80 bid and spironolactone 75bid) referral to Liver transplant program ([facility] or [email or web address]). If ascites is diuretic resistant, consider TIPS Time Spent With Patient Time: Total time managing care of this patient today ____ minutes.
[2022-09-18] MEDS: Albumin Human 25 % 100 ML IV ×2 (16:49→17:34)
[2022-09-18 17:08] LABS: Glucose, Whole Blood 131 mg/dL (60-115)
--- NOTE | 2022-09-18 17:10 | PC.NURSE ---
patient awake, eating crackers with PB. c/o abd pain. abd is round, tender. will give PRN pain medication
[2022-09-18 18:00] LABS: pH Peritoneal Fluid 7.55
[2022-09-18 18:15] LABS: Albumin Peritoneal Fluid 0.4 GM/DL; LDH Peritoneal Fluid 33 U/L; Total Protein Peritoneal Fluid 0.9 GM/DL
[2022-09-18 20:16] LABS: Glucose, Whole Blood 222 mg/dL (60-115)
[2022-09-18] MEDS: Insulin Glargine,Hum.rec.anlog 100 UNIT/ML 10 ML VIAL 15 UNIT SUBCUT (20:17)
[2022-09-18] MEDS: Morphine Sulfate 4 MG/ML CARTRIDGE 3 MG IVPUSH (20:17)
--- NOTE | 2022-09-19 02:32 | CONS_ITS ---
DATE OF SERVICE: 09/18/2022 REFERRING PHYSICIAN: Cassie Thomson MD REASON FOR CONSULTATION: Cirrhosis with ascites. HISTORY OF PRESENT ILLNESS: The patient is a pleasant 57-year-old woman, known to me from prior evaluation. She has a history of cirrhosis with ascites and has had recent admissions with abdominal pain and ascites and has required large-volume paracentesis on multiple occasions. As an outpatient, she reports taking 40 mg furosemide b.i.d. with 25 mg of spironolactone, but has had frequent recurrent ascites. She was last seen in consultation by Nephrology in August during the hospitalization and was diagnosed with probable underlying hepatorenal syndrome type 2 and stable kidney function. Recommendations at that time suggested increasing her furosemide to 80 mg b.i.d. and spironolactone 75 mg b.i.d. Today, she underwent paracentesis of 7 L of ascites fluid and has had some relief of her abdominal pain. She has been advised to undergo referral for liver transplant evaluation, but she states this required a lot of paperwork. Cirrhosis with ascites, the etiology for her liver disease is thought to be held related to chronic fatty liver without chronic alcohol abuse. She has also had encephalopathy and GI bleeding. PAST MEDICAL HISTORY: 1. Cirrhosis as above with ascites and encephalopathy. 2. Upper GI bleeding with peptic ulcer disease and nonbleeding esophageal varices at the time of endoscopy on 07/19/2022. 3. Seizure disorder. 4. Diabetes. 5. Gallstones. 6. Hypertension. 7. Urinary tract infections and history of perinephric abscess. CURRENT MEDICATIONS: Her current medication list is reviewed in the chart. ALLERGIES: THERE ARE NONE REPORTED. FAMILY HISTORY: Positive for primary biliary cirrhosis. SOCIAL HISTORY: There is no current tobacco, alcohol, or substance abuse. REVIEW OF SYSTEMS: SKIN: No pruritus. HEENT: Negative. CARDIOPULMONARY: No shortness of breath or chest pain currently. GASTROINTESTINAL: As above. GENITOURINARY: Negative. NEUROPSYCHIATRIC: Negative. PHYSICAL EXAMINATION: GENERAL: A pleasant female lying comfortably in bed. VITAL SIGNS: Reviewed in the electronic medical record and are stable. SKIN: Anicteric. HEENT: Shows no scleral icterus. NECK: Without lymphadenopathy or thyromegaly. LUNGS: Clear. HEART: Shows regular rate and rhythm. S1, S2. No murmur. ABDOMEN: Distended. There is mild diffuse tenderness to palpation. Bowel sounds are present. No organomegaly is noted. EXTREMITIES: Without edema. LABORATORY DATA AND SCANNING: CT scanning from her most recent CT scan are reviewed as is her ultrasound. IMPRESSION: Cirrhosis with ascites. At this point, I would check with nephrology consultation regarding her diuretic dosing as her last admission suggested increasing this to 80 mg b.i.d. and 75 mg of spironolactone b.i.d. If this is truly refractory ascites, TIPS could be considered and she will obviously need referral for transplant evaluation. This could be done at [facility] in [place] or [facility] program at [facility]. I would recommend also that she receive 7 g of albumin per liter of fluid removed if the paracentesis is greater than 5 L. Thank you for asking me to see her. I will follow her in the hospital with you. MD ODESSA Ludwig/LYNDSEY / [id number]
[2022-09-19 03:12] VITALS: BP 90/42; PULSE 74; RESP 18; TEMP 36.2; O2SAT 97
[2022-09-19] MEDS: Omeprazole 40 MG CAPSULE.DR PO ×2 (05:30→17:23)
[2022-09-19] MEDS: Morphine Sulfate 4 MG/ML CARTRIDGE 3 MG IVPUSH (05:31)
[2022-09-19 07:26] VITALS: BP 119/58; PULSE 84; RESP 18; TEMP 36.5; O2SAT 94
[2022-09-19 07:42] LABS: Glucose, Whole Blood 101 mg/dL (60-115)
[2022-09-19 07:50] LABS: Anion Gap 13 (12-20); Blood Urea Nitrogen 17 mg/dL (9-16); Calcium 8.2 mg/dL (8.4-10.2); Carbon Dioxide 27 mmol/L (22-29); Chloride 105 mmol/L (96-108); Creatinine Clr Calc Pharmacy 64.4; Estimated Glomerular Filt Rate > 60; Glucose Random 89 mg/dL (60-115); Potassium 3.8 mmol/L (3.3-5.1); Sodium 141 mmol/L (135-145)
[2022-09-19] MEDS: Midodrine HCl 10 MG TABLET PO ×3 (09:00→17:22)
[2022-09-19] MEDS: Spironolactone 25 MG TABLET PO ×2 (09:00→17:23)
[2022-09-19] MEDS: Furosemide 40 MG TABLET PO (09:00)
[2022-09-19] MEDS: Pregabalin 25 MG CAPSULE PO ×2 (09:00→21:43)
[2022-09-19] MEDS: 0.9 % Sodium Chloride Flush 3 ML SYRINGE IVFLUSH ×3 (09:01→21:46)
[2022-09-19] MEDS: carvediloL 3.125 MG TABLET PO ×2 (09:01→21:43)
[2022-09-19 11:28] LABS: Glucose, Whole Blood 177 mg/dL (60-115)
[2022-09-19] MEDS: Insulin Lispro 100 UNIT/ML 3 ML VIAL SUBCUT ×3 (12:25→21:46)
--- NOTE | 2022-09-19 13:09 | PM.CNNEP ---
History of Present Illness Reason for Consult Consult date: 09/19/22 Chief Complaint Chief complaint: abdominal pain History of Present Illness Narrative: 57-year-old female with pertinent history of cirrhosis who presented to the emergency department for evaluation of abdominal discomfort.? Patient was seen in the ER and underwent paracentesis on 09/06 and 09/13.? Approximately 13-14 L ascitic fluid drained during the last 2 visits with 7 L drained on 09/13? By IR.? Patient states she started having abdominal discomfort with swelling and epigastric pain .? It has been constant and without any radiation.? The pain has become progressive along with the swelling.? States she is compliant with her diuretics.? No fever, nausea, vomiting, hematemesis, melena, hematochezia, changes in urinary or bowel habits. ? States she is compliant with insulin for her diabetes mellitus. She remains hypervolemic. Nephrology has been consulted to assist in her clinical care Review of Systems Review of Systems Yes all other systems are reviewed and are negative PMFSH Past Medical History Medical History Cirrhosis Cirrhosis Diabetes (~01/31/21) Diabetes mellitus with hyperglycemia Diabetes type 2, controlled Gallstones Hepatic failure due to alcoholism HTN (hypertension) Kidney, perinephric abscess Portal hypertension SBP (spontaneous bacterial peritonitis) UTI (urinary tract infection) UTI (urinary tract infection) UTI due to extended-spectrum beta lactamase (ESBL) producing Escherichia coli Varices of other sites Family History Family History Mother No problems noted. Father No problems noted. Social History Social History Household Members: Children Household Members Other:: Patient's son Housing: House Do you presently have visiting nurse or other home services: No Alcohol intake: never Patient Tobacco Use Status: Never used Tobacco Smoked in Last 30 Days: No e-Cigarette/Vaping Use: Never Used Second Hand Smoke Exposure: No Use of substances other than those prescribed or required for medical reasons: No Currently Displaying Signs/Symptoms of Drug Intoxication Withdrawal: No Have you been hit, kicked, punched, or otherwise hurt by someone within the past year? If so, by whom?: No Do you feel safe in your current relationship?: Yes Is there a partner from a previous relationship who is making you feel unsafe now?: No Are you made to feel afraid or neglected: No Advance Directives: No Advance Directives Information Provided: No Advance Directives Date on File: 06/15/21 Do you have thoughts of harming others: None Do you have a plan to hurt others: No Plan Recently lost weight without trying: Yes How much weight loss: Unsure Eating poorly because of decreased appetite: Yes Nutrition screen score: 5 Nutrition Risks: No Nutritional Risk Patient : No : No Poor oral hygiene: No service: No Current occupational status: unemployed and disabled Cognitive needs: No Hearing needs: No Vision needs: No Meds Allergies Allergy/AdvReac Type Severity Reaction Status Date / Time No Known Allergies Allergy Verified 09/17/22 20:25 [No Known Allergies*] Active Medications: Current Medications Carvedilol (Carvedilol 3.125 Mg Tablet) 3.125 mg PO BID COUNTS INCLUDE 234 BEDS AT THE [facility]; Protocol Last Admin: 09/19/22 09:01 Dose: 3.125 mg Dextrose (Dextrose 50 % 25 Gm/50 Ml Syringe) 25 gm IVPUSH Q15M PRN; Protocol PRN Reason: per Hypoglycemia Standing Ord. Last Admin: 09/18/22 12:32 Dose: 25 gm Furosemide (Furosemide 40 Mg Tablet) 40 mg PO DAILY COUNTS INCLUDE 234 BEDS AT THE [facility]; Protocol Last Admin: 09/19/22 09:00 Dose: 40 mg Glucose (Glucose Gel 15 Gm Gel..Gram.) 15 gm PO Q15M PRN; Protocol PRN Reason: per Hypoglycemia Standing Ord. Insulin Glargine (Insulin Glargine,Hum.Rec.Anlog 100 Unit/Ml 10 Ml Vial) 15 unit SUBCUT BEDTIME COUNTS INCLUDE 234 BEDS AT THE [facility] Last Admin: 09/18/22 20:17 Dose: 15 unit Insulin Human Lispro (Insulin Lispro 100 Unit/Ml 3 Ml Vial) 0 unit SUBCUT QIDACHS COUNTS INCLUDE 234 BEDS AT THE [facility]; Protocol Last Admin: 09/19/22 12:25 Dose: 6 unit Lactulose (Lactulose 20 Gm/30 Ml Solution) 30 gm PO BID COUNTS INCLUDE 234 BEDS AT THE [facility] Last Admin: 09/19/22 09:05 Dose: Not Given Melatonin (Melatonin 3 Mg Tablet) 6 mg PO BEDTIME PRN PRN Reason: Insomnia Midodrine (Midodrine Hcl 10 Mg Tablet) 10 mg PO TIDWM COUNTS INCLUDE 234 BEDS AT THE [facility] Last Admin: 09/19/22 12:15 Dose: 10 mg Omeprazole (Omeprazole 40 Mg Capsule.) 40 mg PO BID@0630,1630 COUNTS INCLUDE 234 BEDS AT THE [facility] Last Admin: 09/19/22 05:30 Dose: 40 mg Ondansetron HCl (Ondansetron Hcl 4 Mg/2 Ml Vial) 4 mg IVPUSH Q8H PRN PRN Reason: Nausea and Vomiting Pharmacy Consult (Consult Rx Perform Med Rec) 1 each MISCELLANE ONCE PRN PRN Reason: Consult order Pregabalin (Pregabalin 25 Mg Capsule) 25 mg PO BID COUNTS INCLUDE 234 BEDS AT THE [facility] Last Admin: 09/19/22 09:00 Dose: 25 mg Sodium Chloride (0.9 % Sodium Chloride Flush 3 Ml Syringe) 3 ml IVFLUSH QSHIFT COUNTS INCLUDE 234 BEDS AT THE [facility] Last Admin: 09/19/22 09:01 Dose: 3 ml Spironolactone (Spironolactone 25 Mg Tablet) 25 mg PO BID@0900,1800 COUNTS INCLUDE 234 BEDS AT THE [facility]; Protocol Last Admin: 09/19/22 09:00 Dose: 25 mg Home Medications Medication Instructions Recorded Confirmed Last Taken Type insulin glargine 100 unit/mL (3 20 unit subcut DAILY 07/14/22 09/18/22 08/14/22 History mL) subcutaneous pen (Lantus Solostar U-100 Insulin) bisacodyl 5 mg tablet,delayed 5 mg PO DAILY 09/18/22 09/18/22 Unknown History release (Laxative (bisacodyl)) carvedilol 3.125 mg tablet 1 tab PO BID 09/18/22 09/18/22 Unknown History furosemide 40 mg tablet 1 tab PO DAILY 09/18/22 09/18/22 Unknown History lactulose 10 gram/15 mL oral 45 ml PO DAILY 09/18/22 09/18/22 Unknown History solution nystatin 100,000 unit/gram topical 1 applic topical BID 09/18/22 09/18/22 Unknown History powder omeprazole 40 mg capsule,delayed 1 cap PO BID 09/18/22 09/18/22 Unknown History release pregabalin 25 mg capsule 1 cap PO BID 09/18/22 09/18/22 Unknown History Physical Exam Vital Signs: Last Vital Signs Temp 97.7 F 09/19/22 07:26 Pulse 84 09/19/22 07:26 Resp 18 09/19/22 07:26 BP 119/58 L 09/19/22 07:26 Pulse Ox 94 09/19/22 07:26 O2 Del Method 09/19/22 07:26 O2 Flow Rate 2 09/17/22 23:43 BMI result Body Mass Index 26.1 Const General: no acute distress Orientation/consciousness: patient oriented x3 Eyes EOM: EOMs intact bilaterally Resp Auscultation: diminished lung sounds Cardio Rate: regular rate GI Other: Ascites + Neuro General: patient oriented x3 and moves all extremities Results Lab Results 09/18/22 06:49 09/19/22 06:16 Lab results: Chemistry 09/17/22 09/18/22 09/19/22 22:42 06:49 06:16 Sodium 138 139 141 Potassium 4.3 4.2 3.8 Carbon Dioxide 23 24 27 BUN 18 H 16 17 H Creatinine 0.97 1.03 0.93 Calcium 8.0 L 7.8 L 8.2 L Hematology 09/17/22 09/18/22 22:09 06:49 WBC 5.4 6.1 Hgb 11.1 L 11.6 L Plt Count 124 L 134 L Urinalysis 09/18/22 00:57 Urine Color Yellow Urine Appearance Clear Urine pH 5.5 Ur Specific [place] 1.025 Urine Protein Negative Urine Glucose (UA) >=1000 H Urine Ketones Trace Urine Blood Negative Urine Nitrite Negative Ur Leukocyte Esterase Small (1+) H Urine RBC 0-2 Urine WBC 6-10 Ur Squamous Epith Cells 0-2 Hyaline Casts 0-2 Assessment and Plan (1) Ascites: Status: Acute Plan Hypervolemic Likely has mild HRS type 2 Renal function stable Lasix 40 mg PO daily Spironolactone 25 mg PO bid Likely will need more Spironolactone ( which could be adjusted as outpatient) Procedures Date of Service Date of Service: 09/19/22
[2022-09-19 15:20] VITALS: BP 100/61; PULSE 78; RESP 18; TEMP 36.3; O2SAT 97
--- NOTE | 2022-09-19 15:39 | HO.PM.IMPN ---
Subjective Subjective Date of Service: 09/19/22 Interval History: Complaining of generalized abdominal pain, no nausea, no vomiting, no diarrhea, tolerating diet refusing to take lactulose, no other acute issues overnight, denies lightheadedness or dizziness, no urinary symptoms of urgency or frequency. Review of Systems Review of Systems: Yes all other systems are reviewed and are negative Physical Exam Vital Signs: Vital Signs: Last Vital Signs Temp 97.3 F 09/19/22 15:20 Pulse 78 09/19/22 15:20 Resp 18 09/19/22 15:20 BP 100/61 09/19/22 15:20 Pulse Ox 97 09/19/22 15:20 O2 Del Method 09/19/22 15:20 O2 Flow Rate 2 09/17/22 23:43 BMI result Body Mass Index 26.1 Const: Other: General? resting comfortably in no acute distress.? Neck? supple no JVD. CVS? regular rate rhythm, Respiratory lungs clear to auscultation, no respiratory distress, no wheeze, no rhonchi. Gastrointestinal abdomen less distended, complaining of pain with superficial abdominal examination, bowel sounds audible, no guarding , no rigidity. Extremities no edema. Neuro nonfocal , speech clear, no asterixis Skin no rash Psych appropriate affect Objective Data Active Medications Carvedilol (Carvedilol 3.125 Mg Tablet) 3.125 mg PO BID ON LICENSE OF [facility]; Protocol Last Admin: 09/19/22 09:01 Dose: 3.125 mg Documented By: GISSEL Dextrose (Dextrose 50 % 25 Gm/50 Ml Syringe) 25 gm IVPUSH Q15M PRN; Protocol PRN Reason: per Hypoglycemia Standing Ord. Last Admin: 09/18/22 12:32 Dose: 25 gm Documented By: BALAJI Furosemide (Furosemide 40 Mg Tablet) 40 mg PO DAILY ON LICENSE OF [facility]; Protocol Last Admin: 09/19/22 09:00 Dose: 40 mg Documented By: GISSEL Glucose (Glucose Gel 15 Gm Gel..Gram.) 15 gm PO Q15M PRN; Protocol PRN Reason: per Hypoglycemia Standing Ord. Insulin Glargine (Insulin Glargine,Hum.Rec.Anlog 100 Unit/Ml 10 Ml Vial) 15 unit SUBCUT BEDTIME ON LICENSE OF [facility] Last Admin: 09/18/22 20:17 Dose: 15 unit Documented By: GENEVIEVE Insulin Human Lispro (Insulin Lispro 100 Unit/Ml 3 Ml Vial) 0 unit SUBCUT QIDACHS ON LICENSE OF [facility]; Protocol Last Admin: 09/19/22 12:25 Dose: 6 unit Documented By: GALILEO Lactulose (Lactulose 20 Gm/30 Ml Solution) 30 gm PO BID ON LICENSE OF [facility] Last Admin: 09/19/22 09:05 Dose: Not Given Documented By: GISSEL Non-Admin Reason: Patient Refused Melatonin (Melatonin 3 Mg Tablet) 6 mg PO BEDTIME PRN PRN Reason: Insomnia Midodrine (Midodrine Hcl 10 Mg Tablet) 10 mg PO TIDWM ON LICENSE OF [facility] Last Admin: 09/19/22 12:15 Dose: 10 mg Documented By: GALILEO Omeprazole (Omeprazole 40 Mg Capsule.) 40 mg PO BID@0630,1630 ON LICENSE OF [facility] Last Admin: 09/19/22 05:30 Dose: 40 mg Documented By: TONNY Ondansetron HCl (Ondansetron Hcl 4 Mg/2 Ml Vial) 4 mg IVPUSH Q8H PRN PRN Reason: Nausea and Vomiting Pharmacy Consult (Consult Rx Perform Med Rec) 1 each MISCELLANE ONCE PRN PRN Reason: Consult order Pregabalin (Pregabalin 25 Mg Capsule) 25 mg PO BID ON LICENSE OF [facility] Last Admin: 09/19/22 09:00 Dose: 25 mg Documented By: GISSLE Sodium Chloride (0.9 % Sodium Chloride Flush 3 Ml Syringe) 3 ml IVFLUSH QSHIFT ON LICENSE OF [facility] Last Admin: 09/19/22 09:01 Dose: 3 ml Documented By: GISSEL Spironolactone (Spironolactone 25 Mg Tablet) 25 mg PO BID@0900,1800 ON LICENSE OF [facility]; Protocol Last Admin: 09/19/22 09:00 Dose: 25 mg Documented By: GISSEL Labs 09/18/22 06:49 09/19/22 06:16 Labs: Laboratory Results - last 24 hr 09/18/22 09/18/22 09/18/22 10:30 10:30 17:03 Anion Gap Estim Creat Clear Calc Estimated GFR POC Glucose 131 H Random Glucose Calcium Peritoneal pH 7.55 Peritoneal Tot Protein 0.9 Peritoneal Albumin 0.4 Peritoneal LDH 33 09/18/22 09/19/22 09/19/22 20:12 06:16 07:35 Anion Gap 13 Estim Creat Clear Calc 64.4 Estimated GFR > 60 POC Glucose 222 H 101 Random Glucose 89 Calcium 8.2 L Peritoneal pH Peritoneal Tot Protein Peritoneal Albumin Peritoneal LDH 09/19/22 11:18 Anion Gap Estim Creat Clear Calc Estimated GFR POC Glucose 177 H Random Glucose Calcium Peritoneal pH Peritoneal Tot Protein Peritoneal Albumin Peritoneal LDH Microbiology Microbiology Results: Microbiology 09/18/22 Unknown Urine Culture - Final Urine clean catch - Urine henderson top Strep agalactiae (Grp B) 09/18/22 10:30 Gram Stain - Final Ascites Fluid Anaerobic Culture - Preliminary No growth to date. Body Fluid Culture - Preliminary No growth after 1 day Assessment and Plan (1) Ascites: Status: Acute (2) Liver cirrhosis: Status: Acute Plan 57-year-old female with pertinent history of cirrhosis, insulin-dependent diabetes mellitus, gastroesophageal reflux disease, essential hypertension who presents to the emergency department for evaluation of abdominal discomfort. ?#. Ascites due to decompensated cirrhosis with abdominal discomfort Abdominal pain , with normal examination less distended abdomen, bowel sounds audible, underwent paracentesis 6 L of clear fluid was removed fluid not consistent with SBP, IV antibiotic discontinued Status post IV albumin as per GI doctor Due to recurrent ascites increase dose of Aldactone to 25 b.i.d. continue Lasix 40 mg daily, seen by Nephrology they recommend to gradually increase Aldactone if BP allows If ascites resistant to diuretics GI will consider tips procedure, will discuss with GI regarding scheduled bi weekly paracentesis Patient refusing to take lactulose, strongly recommend lactulose to avoid elevated ammonia level ?#. insulin-dependent diabetes mellitus fluctuating blood sugars, Continue Lantus 15 units at bedtime and insulin sliding scale / diabetic diet ? #.Thrombocytopenia and coagulopathy due to cirrhosis, no active bleeding noted ?#. hypoalbuminemia in the setting of cirrhosis, encourage high-protein diet ?#. chronic normocytic anemia related to chronic disease, stable hematocrit ? ?DVT prophylaxis:? SCD ?Full Code ?Disposition home patient refusing physical therapy evaluation and rehab Continue inpatient hospitalization for management of refractory ascites requiring frequent paracentesis and treatment for hyperammonia. ? Time Spent With Patient Time: Total time managing care of this patient today ____ minutes. Quality Stroke Does the patient have a stroke diagnosis?: No VTE Prior VTE?: No VTE Risk Level:: Medical - moderate - high VTE Device Contraindication: N/A - Device Ordered VTE Drug Contraindication: Treatment Not Indicated
[2022-09-19 16:32] LABS: Glucose, Whole Blood 194 mg/dL (60-115)
[2022-09-19] MEDS: Lactulose 20 GM/30 ML SOLUTION 30 GM PO ×2 (17:24→21:47)
[2022-09-19] MEDS: ondansetron HCL 4 MG/2 ML VIAL IVPUSH (17:28)
[2022-09-19 19:17] VITALS: BP 104/61; PULSE 68; RESP 18; TEMP 37.6; O2SAT 100
[2022-09-19 19:44] LABS: Glucose, Whole Blood 162 mg/dL (60-115)
[2022-09-19] MEDS: Insulin Glargine,Hum.rec.anlog 100 UNIT/ML 10 ML VIAL 15 UNIT SUBCUT (21:43)
[2022-09-20 03:21] VITALS: BP 97/60; PULSE 75; RESP 14; TEMP 36.9; O2SAT 94
[2022-09-20] MEDS: Omeprazole 40 MG CAPSULE.DR PO ×2 (05:54→17:31)
[2022-09-20 06:43] LABS: Ammonia 54 umol/L (13-55)
[2022-09-20 08:00] VITALS: BP 105/55; PULSE 70; RESP 14; TEMP 36.1; O2SAT 95
[2022-09-20 09:06] LABS: Glucose, Whole Blood 165 mg/dL (60-115)
[2022-09-20] MEDS: 0.9 % Sodium Chloride Flush 3 ML SYRINGE IVFLUSH ×3 (09:34→20:30)
[2022-09-20] MEDS: Insulin Lispro 100 UNIT/ML 3 ML VIAL SUBCUT ×4 (09:34→20:31)
[2022-09-20] MEDS: Midodrine HCl 10 MG TABLET PO ×3 (09:35→17:31)
[2022-09-20] MEDS: Furosemide 40 MG TABLET PO (09:35)
[2022-09-20] MEDS: Spironolactone 25 MG TABLET PO ×2 (09:35→17:31)
[2022-09-20] MEDS: Pregabalin 25 MG CAPSULE PO ×2 (09:35→20:30)
[2022-09-20] MEDS: carvediloL 3.125 MG TABLET PO ×3 (09:35→20:33)
--- NOTE | 2022-09-20 11:35 | PM.PNNEP ---
Subjective Subjective Date of Service: 09/20/22 Interval history: Events noted. All recent data reviewed.D/W Med Attending. Physical Exam Vital Signs: Vital Signs: Last Vital Signs Temp 97 F 09/20/22 08:00 Pulse 70 09/20/22 08:00 Resp 14 09/20/22 08:00 BP 105/55 L 09/20/22 08:00 Pulse Ox 95 09/20/22 08:00 O2 Del Method 09/20/22 08:00 O2 Flow Rate 2 09/17/22 23:43 BMI result Body Mass Index 26.1 Const: General: no acute distress Eyes: EOM: EOMs intact bilaterally Resp: Auscultation: diminished lung sounds Cardio: Rate: regular rate GI: Palpation (GI): Soft to palpation Neuro: General: moves all extremities Objective Data Labs 09/18/22 06:49 09/19/22 06:16 Labs: Laboratory Results - last 24 hr 09/19/22 09/19/22 09/20/22 16:18 19:20 06:20 POC Glucose 194 H 162 H Ammonia 54 09/20/22 09:01 POC Glucose 165 H Ammonia Microbiology Microbiology Results: Microbiology 09/18/22 10:30 Ascites Fluid Gram Stain - Final 09/18/22 10:30 Ascites Fluid Anaerobic Culture - Preliminary No growth to date. 09/18/22 10:30 Ascites Fluid Body Fluid Culture - Final No growth after 2 days 09/18/22 Unknown Urine clean catch - Urine henderson top Urine Culture - Final Strep agalactiae (Grp B) Procedures Date of Service Date of Service: 09/20/22 Assessment & Plan Assessment and plan (1) Ascites: Status: Acute Assessment and Plan: Hypervolemic Likely has mild HRS type 2 Renal function stable On Lasix 40 mg PO daily Increase Spironolactone to 50 mg PO bid Likely will need more Spironolactone ( which could be adjusted as outpatient) Time Spent With Patient Time: Total time managing care of this patient today ____ minutes. Progress Note: Quality Stroke Does the patient have a stroke diagnosis?: No
[2022-09-20 11:52] LABS: Glucose, Whole Blood 372 mg/dL (60-115)
--- NOTE | 2022-09-20 12:15 | P.DS_ITS ---
DS: Providers Provider Date of admission: 09/17/22 23:28 Primary care physician: Eden Carrillo MD Consults: 09/17/22 23:32 Consult to Gastroenterology Routine Consulting Provider: Manoj Mesa Reason for consultation: decompensated cirrhosis 09/19/22 08:37 Consult to Nephrology Routine Consulting Provider: Gerry Fried Reason for consultation: medication adjustment for recurrent ascites Has provider been notified: No DS: Diagnosis Discharge Diagnosis (1) Ascites: Status: Inactive DS: Summary Hospital Course Hospital Course: Date of Service: 09/17/22 Chief Complaint: Abdominal Pain ?this is a 57-year-old female with pertinent history of cirrhosis, insulin- dependent diabetes mellitus, gastroesophageal reflux disease, essential hypertension who presents to the emergency department for evaluation of abdominal discomfort.? Patient was seen in the ER and underwent paracentesis on 09/06 and 09/13.? Approximately 13-14 L ascitic fluid drained during the last 2 visits with 7 L drained on 09/13? By IR.? Patient states she started having abdominal discomfort with swelling and epigastric pain that started yesterday.? It has been constant and without any radiation.? The pain has become progressive along with the swelling.? States she is compliant with her diuretics.? No fever, nausea, vomiting, hematemesis, melena, hematochezia, changes in urinary or bowel habits. ? States she is compliant with insulin for her diabetes mellitus. ?in the emergency department, blood glucose was noted to be in the 500s.? Marked abdominal swelling noted. Cirrhosis with ascites 57-year-old female with pertinent history of cirrhosis, insulin-dependent diabetes mellitus, gastroesophageal reflux disease, essential hypertension who presents to the emergency department for evaluation of abdominal discomfort and diagnosed to have significant abdominal distention related to ascites, patient admitted to medical floor and underwent paracentesis, 6 L of fluid fluid was removed, fluid studies not consistent with SBP, Therefore did not require antibiotic treatment, post paracentesis patient treated with IV albumin, due to recurrent ascites patient dose of Aldactone was increased from 12.5 b.i.d. to 25 mg b.i.d. and prior to discharge patient was evaluated by Dr. Ty from Nephrology in dose of Aldactone has been increased to 50 mg twice Daily patient is recommended to continue Lasix 40 mg daily and to restrict fluid intake patient was seen in consultation by Dr. Mesa , patient will be arrange for outpatient paracentesis Q weekly, Dr. Mesa office will notify patient for appointment she is recommended to follow fluid restriction of 1500 mL and to have close outpatient follow-up with Gastroenterology. Patient complained of anterior abdominal wall discomfort explained to patient it is re lated to abdominal wall stretching that will benefit with Q weekly paracentesis use as needed hot packs, recent CT abdomen and pelvis showed liver cirrhosis no evidence of thrombosis of portal vein cholelithiasis with no cholecystitis borderline splenomegaly and no evidence of acute intra-abdominal process to explain patient's pain symptoms. ?Insulin-dependent diabetes mellitus fluctuating blood sugars, Continue Lantus 20 units at bedtime and follow blood sugar q.i.d. and diabetic diet Thrombocytopenia and coagulopathy due to cirrhosis, no active bleeding noted ?Hypoalbuminemia in the setting of cirrhosis ?Chronic normocytic anemia related to chronic disease, stable hematocrit, hematocrit above transfusion. Elevated ammonia level of 78 on admission patient noted to have no confusion or encephalopathy continue lactulose. On the day of discharge, patient exhibited a pseudo catatonic episode similar to past episodes. This lasted approximately 15 minutes after which she return to n ormal cognitive function. She will be discharged as planned with follow-up with Dr. Mesa Time Spent with Patient Time attestation: Total time managing care of this patient today ____ minutes. Physical Exam Vital Signs: Vital Signs: Last Vital Signs Temp 97 F 09/20/22 08:00 Pulse 70 09/20/22 08:00 Resp 14 09/20/22 08:00 BP 105/55 L 09/20/22 08:00 Pulse Ox 95 09/20/22 08:00 O2 Del Method 09/20/22 08:00 O2 Flow Rate 2 09/17/22 23:43 BMI result Body Mass Index 26.1 Const: Other: General? resting comfortably in no acute distress.? Neck? supple no JVD. CVS? regular rate rhythm Respiratory lungs clear to auscultation, no respiratory distress, no wheeze, no rhonchi. Gastrointestinal abdomen less distended, bowel sounds audible, no guarding , no rigidity, no abdominal wall palpable masses. Extremities no edema. Neuro nonfocal , speech clear, no asterixis Skin no rash. Psych appropriate affect DS: Data Data Completed and Pending Completed studies during hospitalization [Text1]: Procedures Drainage of Peritoneal Cavity with Drainage Device, Percutaneous Approach (04/25/22) Drainage of Peritoneal Cavity, Percutaneous Approach (08/15/22) Excision of Stomach, Pylorus, Via Natural or Artificial Opening Endoscopic, Diagnostic (07/14/22) Insertion of Infusion Device into Right Brachial Vein, Percutaneous Approach (06/14/21) Transfusion of Nonautologous Red Blood Cells into Peripheral Vein, Percutaneous Approach (07/14/22) Labs on day of discharge: Laboratory Results - last 24 hr 09/19/22 09/19/22 09/20/22 16:18 19:20 06:20 POC Glucose 194 H 162 H Ammonia 54 09/20/22 09/20/22 09:01 11:46 POC Glucose 165 H 372 H* Ammonia Preliminary micro results at discharge 09/18/22 10:30 Anaerobic Culture - Preliminary Ascites Fluid No growth to date. Discharge Plan Discharge Anticipated Discharge Date/Time: 09/20/22 11:23 Patient Disposition: Home, Self-Care Discharge Diagnosis: Decompensated cirrhosis with ascites Referrals: Eden Han MD [Primary Care Provider] - 1 Week Discharge Medications: New spironolactone [Aldactone] 50 mg tablet 50 mg PO BID Qty: 60 0RF torsemide 20 mg tablet 20 mg PO DAILY Qty: 30 0RF oxycodone 5 mg tablet 5 mg PO Q8H PRN (Reason: pain) Qty: 10 0RF Rx Instructions: Partial Fill upon patient request. Continued insulin glargine [Lantus Solostar U-100 Insulin] 100 unit/mL (3 mL) insulin pen 20 unit subcut DAILY carvedilol 3.125 mg tablet 1 tab PO BID bisacodyl [Laxative (bisacodyl)] 5 mg tablet,delayed release (DR/EC) 5 mg PO DAILY omeprazole 40 mg capsule,delayed release(DR/EC) 1 cap PO BID nystatin 100,000 unit/gram powder 1 applic topical BID lactulose 10 gram/15 mL solution 45 ml PO DAILY pregabalin 25 mg capsule 1 cap PO BID midodrine 10 mg Tablet 10 mg PO TIDWM Qty: 90 0RF Discontinued furosemide 40 mg tablet 1 tab PO DAILY spironolactone 25 mg Tablet 12.5 mg PO BID Qty: 30 0RF Protocol: Hold for SBP< HOLD for SBP < : 90 Discharge Orders: Discharge Order (Routine); Ordered 09/20/22 Ordered By: Cleo Alvarez Diet: Diabetic diet Activity on Discharge: As tolerated Stand Alone Forms: Patient Portal Discharge page Care Plan Goals: Cirrhosis with ascites recommend outpatient paracentesis q weekly, Dr. Mesa office will arrange for it and their office will call patient for appointment. Follow diabetic diet and monitor blood sugars Strongly recommend to take all medications as prescribed including diuretics and lactulose Dose of Aldactone increased to 50 mg twice Daily, continue Lasix 40 mg daily fluid restriction 1500 ml Health Concerns: Diabetes strongly suggest diabetic diet and continue Lantus Plan of Treatment: Follow-up with primary care physician call for appointment, close outpatient follow-up with Dr. Mesa, if no response to diuretics patient will be considered for TIPs procedure Assessment: As above Discharge Date/Time: 09/23/22 11:30
--- NOTE | 2022-09-20 14:08 | MHC.CM.PN ---
DAUGHTER ERIKA [phone] IS STARTING THE [place] APPEALS PROCESS. CONTACT NUMBER AND ACCOUNT INFORMATION GIVEN. CM MEDIA RELATIONS INTERN AWARE OF PLAN. IMM 2/2 IN CHART PATIENT IS AWARE OF DAUGHTER'S ATTEMPTS AND IN AGREEMENT
[2022-09-20 15:38] VITALS: BP 101/60; PULSE 73; RESP 17; TEMP 36.5; O2SAT 98
--- NOTE | 2022-09-20 16:17 | HO.PM.IMPN ---
Subjective Subjective Date of Service: 09/21/22 Interval History: Patient awake alert offers no acute complaints, tolerating diet, with no nausea, no vomiting, no complain of abdominal pain this morning, had bowel movement yesterday, no confusion coherent and answering questions appropriately. Review of Systems Review of Systems: Yes all other systems are reviewed and are negative Physical Exam Vital Signs: Vital Signs: Last Vital Signs Temp 97.7 F 09/20/22 15:38 Pulse 73 09/20/22 15:38 Resp 17 09/20/22 15:38 BP 101/60 09/20/22 15:38 Pulse Ox 98 09/20/22 15:38 O2 Del Method 09/20/22 15:38 O2 Flow Rate 2 09/17/22 23:43 BMI result Body Mass Index 26.1 Const: Other: General? resting comfortably in no acute distress.? Neck? supple no JVD. CVS? regular rate rhythm Respiratory lungs clear to auscultation, no respiratory distress, no wheeze, no rhonchi. Gastrointestinal abdomen less distended, bowel sounds audible, no guarding , no rigidity, no abdominal wall palpable masses. Extremities no edema. Neuro nonfocal , speech clear, no asterixis Skin no rash. Psych appropriate affect Objective Data Active Medications Carvedilol (Carvedilol 3.125 Mg Tablet) 3.125 mg PO BID [facility]; Protocol Last Admin: 09/20/22 09:35 Dose: 3.125 mg Documented By: TAMRA Dextrose (Dextrose 50 % 25 Gm/50 Ml Syringe) 25 gm IVPUSH Q15M PRN; Protocol PRN Reason: per Hypoglycemia Standing Ord. Last Admin: 09/18/22 12:32 Dose: 25 gm Documented By: BALAJI Furosemide (Furosemide 40 Mg Tablet) 40 mg PO DAILY [facility]; Protocol Last Admin: 09/20/22 09:35 Dose: 40 mg Documented By: TAMRA Glucose (Glucose Gel 15 Gm Gel..Gram.) 15 gm PO Q15M PRN; Protocol PRN Reason: per Hypoglycemia Standing Ord. Insulin Glargine (Insulin Glargine,Hum.Rec.Anlog 100 Unit/Ml 10 Ml Vial) 15 unit SUBCUT BEDTIME ODALYS Last Admin: 09/19/22 21:43 Dose: 15 unit Documented By: TONNY Insulin Human Lispro (Insulin Lispro 100 Unit/Ml 3 Ml Vial) 0 unit SUBCUT QIDACHS [facility]; Protocol Last Admin: 09/20/22 12:11 Dose: 16 unit Documented By: TAMRA Lactulose (Lactulose 20 Gm/30 Ml Solution) 30 gm PO BID [facility] Last Admin: 09/20/22 10:03 Dose: Not Given Documented By: TAMRA Non-Admin Reason: Patient Refused Melatonin (Melatonin 3 Mg Tablet) 6 mg PO BEDTIME PRN PRN Reason: Insomnia Midodrine (Midodrine Hcl 10 Mg Tablet) 10 mg PO TIDWM [facility] Last Admin: 09/20/22 12:11 Dose: 10 mg Documented By: TAMRA Omeprazole (Omeprazole 40 Mg Capsule.) 40 mg PO BID@0630,1630 [facility] Last Admin: 09/20/22 05:54 Dose: 40 mg Documented By: TONNY Ondansetron HCl (Ondansetron Hcl 4 Mg/2 Ml Vial) 4 mg IVPUSH Q8H PRN PRN Reason: Nausea and Vomiting Last Admin: 09/19/22 17:28 Dose: 4 mg Documented By: RIOS Pharmacy Consult (Consult Rx Perform Med Rec) 1 each MISCELLANE ONCE PRN PRN Reason: Consult order Pregabalin (Pregabalin 25 Mg Capsule) 25 mg PO BID [facility] Last Admin: 09/20/22 09:35 Dose: 25 mg Documented By: TAMRA Sodium Chloride (0.9 % Sodium Chloride Flush 3 Ml Syringe) 3 ml IVFLUSH QSHIFT [facility] Last Admin: 09/20/22 09:34 Dose: 3 ml Documented By: TAMRA Spironolactone (Spironolactone 25 Mg Tablet) 25 mg PO BID@0900,1800 [facility]; Protocol Last Admin: 09/20/22 09:35 Dose: 25 mg Documented By: TAMRA Labs 09/18/22 06:49 09/19/22 06:16 Labs: Laboratory Results - last 24 hr 09/19/22 09/19/22 09/20/22 16:18 19:20 06:20 POC Glucose 194 H 162 H Ammonia 54 09/20/22 09/20/22 09:01 11:46 POC Glucose 165 H 372 H* Ammonia Microbiology Microbiology Results: Microbiology 09/18/22 10:30 Gram Stain - Final Ascites Fluid Anaerobic Culture - Preliminary No growth to date. Body Fluid Culture - Final No growth after 2 days Assessment and Plan (1) Ascites: Status: Acute (2) Cirrhosis: Status: Acute Plan 57-year-old female with pertinent history of cirrhosis, insulin-dependent diabetes mellitus, gastroesophageal reflux disease, essential hypertension who presents to the emergency department for evaluation of abdominal discomfort and diagnosed to have significant abdominal distention likely related to ascites, abdominal ultrasound showed liver cirrhosis, ascites cholelithiasis without evidence of cholecystitis. Ascites with underlying cirrhosis with chronic abdominal pain patient admitted to medical floor and underwent paracentesis, 6 L of fluid fluid was removed, fluid studies not consistent with SBP, post paracentesis patient treated with IV albumin, due to recurrent ascites patient dose of Aldactone was increased from 12.5 b.i.d. to 25 mg b.i.d. patient evaluated by Dr. Ty from Nephrology he recommend to further increase dose of Aldactone to 50 mg twice Daily , and and continue Lasix 40 mg daily Patient seen in consultation by Dr. Mesa , he will arrange for outpatient paracentesis Q weekly, Dr. Mesa office will notify patient for appointment she is recommended to follow fluid restriction of 1500 mL and to have close outpatient follow-up with Gastroenterology.? anterior abdominal pain is likely related to abdominal wall stretching that will benefit with Q weekly paracentesis use as needed hot packs, recent CT abdomen and pelvis showed liver cirrhosis no evidence of thrombosis of portal vein cholelithiasis with no cholecystitis, borderline splenomegaly and no evidence of acute intra-abdominal process to explain patient's pain symptoms. ?Insulin-dependent diabetes mellitus fluctuating blood sugars, Continue Lantus at bedtime and follow blood sugar q.i.d. and diabetic diet ?Thrombocytopenia and coagulopathy due to cirrhosis, no active bleeding noted recommend close outpatient follow-up with Gastroenterology ?Hypoalbuminemia in the setting of cirrhosis. ?Chronic normocytic anemia related to chronic disease, stable hematocrit, hematocrit above transfusion. Elevated ammonia level of 78 on admission patient noted to have no confusion or encephalopathy, ammonia improved to 54, continue lactulose. Patient discharged home today but daughter appealed discharge requesting for meetings with all providers explained to her that all providers have individually seen the patient and given their input and she is being discharged home with follow-up with gastroenterology as well as Nephrology she has to be compliant with her home medications and her appointments as outpatient. Time Spent With Patient Time: Total time managing care of this patient today ____ minutes. Quality Stroke Does the patient have a stroke diagnosis?: No VTE Prior VTE?: No VTE Risk Level:: Medical - moderate - high VTE Device Contraindication: N/A - Device Ordered VTE Drug Contraindication: Treatment Not Indicated
[2022-09-20 16:36] LABS: Glucose, Whole Blood 180 mg/dL (60-115)
[2022-09-20 19:55] VITALS: BP 94/55; PULSE 74; RESP 17; TEMP 36.2; O2SAT 97
[2022-09-20 20:11] LABS: Glucose, Whole Blood 175 mg/dL (60-115)
[2022-09-20] MEDS: Lactulose 20 GM/30 ML SOLUTION 30 GM PO (20:30)
[2022-09-20] MEDS: Insulin Glargine,Hum.rec.anlog 100 UNIT/ML 10 ML VIAL 15 UNIT SUBCUT (20:32)
[2022-09-21 04:00] VITALS: BP 101/55; PULSE 77; RESP 18; TEMP 36.1; O2SAT 97
[2022-09-21] MEDS: Omeprazole 40 MG CAPSULE.DR PO ×2 (05:48→17:01)
[2022-09-21 07:55] LABS: Glucose, Whole Blood 323 mg/dL (60-115)
[2022-09-21] MEDS: Lactulose 20 GM/30 ML SOLUTION 30 GM PO ×2 (07:56→20:58)
[2022-09-21] MEDS: carvediloL 3.125 MG TABLET PO ×2 (07:57→20:53)
[2022-09-21] MEDS: Furosemide 40 MG TABLET PO (07:57)
[2022-09-21] MEDS: Spironolactone 25 MG TABLET PO (07:57)
[2022-09-21] MEDS: Midodrine HCl 10 MG TABLET PO ×3 (07:57→17:01)
[2022-09-21] MEDS: Pregabalin 25 MG CAPSULE PO ×2 (07:57→20:53)
[2022-09-21] MEDS: 0.9 % Sodium Chloride Flush 3 ML SYRINGE IVFLUSH ×2 (07:58→17:02)
[2022-09-21 08:00] VITALS: BP 108/58; PULSE 72; RESP 17; TEMP 36; O2SAT 97
[2022-09-21] MEDS: Insulin Lispro 100 UNIT/ML 3 ML VIAL SUBCUT ×4 (08:20→20:52)
--- NOTE | 2022-09-21 10:50 | PM.PNNEP ---
Subjective Subjective Date of Service: 09/21/22 Interval history: no events was due for discharge, now awaiting family meeting no labs today Physical Exam Vital Signs: Vital Signs: Last Vital Signs Temp 96.8 F 09/21/22 08:00 Pulse 72 09/21/22 08:00 Resp 17 09/21/22 08:00 BP 108/58 L 09/21/22 08:00 Pulse Ox 97 09/21/22 08:00 O2 Del Method 09/21/22 08:00 O2 Flow Rate 2 09/17/22 23:43 BMI result Body Mass Index 26.1 Const: Other: General? resting comfortably in no acute distress.? Neck? supple no JVD. CVS? regular rate rhythm Respiratory lungs clear to auscultation, no respiratory distress, no wheeze, no rhonchi. Gastrointestinal abdomen less distended, bowel sounds audible, no guarding , no rigidity, no abdominal wall palpable masses. Extremities no edema. Neuro nonfocal , speech clear, no asterixis Skin no rash. Psych appropriate affect Objective Data Labs 09/18/22 06:49 09/19/22 06:16 Labs: Laboratory Results - last 24 hr 09/20/22 09/20/22 09/20/22 11:46 16:32 20:05 POC Glucose 372 H* 180 H 175 H 09/21/22 07:47 POC Glucose 323 H Microbiology Microbiology Results: Microbiology 09/18/22 10:30 Ascites Fluid Gram Stain - Final 09/18/22 10:30 Ascites Fluid Anaerobic Culture - Preliminary No growth to date. 09/18/22 10:30 Ascites Fluid Body Fluid Culture - Final No growth after 2 days 09/18/22 Unknown Urine clean catch - Urine henderson top Urine Culture - Final Strep agalactiae (Grp B) Procedures Date of Service Date of Service: 09/21/22 Assessment & Plan Assessment and plan (1) Ascites: Status: Inactive Assessment and Plan: 57-year-old female with pertinent history of cirrhosis, insulin-dependent diabetes mellitus, gastroesophageal reflux disease, essential hypertension who presents with ascites, abdominal ultrasound showed liver cirrhosis, ascites cholelithiasis without evidence of cholecystitis. Pt underwent paracentesis, 6 L of fluid fluid was removed, fluid studies not consistent with SBP, and post paracentesis patient treated with IV albumin, due to recurrent ascites patient started on lasix / aldactone and meds titrated in hospital. 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 Hypervolemic Renal function stable Plan: - c/w Lasix 40 mg PO daily, could trial instead torsemide 20mg po daily which will have a longer half life in cirrhotics. - c/w Spironolactone to 50 mg PO bid - daily labs if in hospital Time Spent With Patient Time: Total time managing care of this patient today ____ minutes. Progress Note: Quality Stroke Does the patient have a stroke diagnosis?: No
[2022-09-21 11:16] LABS: Glucose, Whole Blood 371 mg/dL (60-115)
[2022-09-21 11:39] VITALS: BP 94/51; PULSE 73
[2022-09-21 15:49] VITALS: BP 90/54; PULSE 79; RESP 16; TEMP 36.3; O2SAT 97
--- NOTE | 2022-09-21 16:07 | HO.PM.IMPN ---
Subjective Subjective Date of Service: 09/21/22 Interval History: Patient awake alert complaining of discomfort at IV site left forearm, tolerating diet with no nausea, no vomiting, no abdominal pain, no confusion no other acute issues overnight. Review of Systems Review of Systems: Yes all other systems are reviewed and are negative Physical Exam Vital Signs: Vital Signs: Last Vital Signs Temp 97.4 F 09/21/22 15:49 Pulse 79 09/21/22 15:49 Resp 16 09/21/22 15:49 BP 90/54 L 09/21/22 15:49 Pulse Ox 97 09/21/22 15:49 O2 Del Method 09/21/22 15:49 O2 Flow Rate 2 09/17/22 23:43 BMI result Body Mass Index 26.1 Const: Other: General? resting comfortably in no acute distress.? Neck? supple no JVD. CVS? regular rate rhythm Respiratory lungs clear to auscultation, no respiratory distress, no wheeze, no rhonchi. Gastrointestinal abdomen less distended, bowel sounds audible, no guarding , no rigidity, no abdominal wall palpable masses. Extremities no edema. Neuro nonfocal , speech clear, no asterixis Skin no rash. Psych appropriate affect Objective Data Active Medications Carvedilol (Carvedilol 3.125 Mg Tablet) 3.125 mg PO BID [facility]; Protocol Last Admin: 09/21/22 07:57 Dose: 3.125 mg Documented By: TORSTEN Dextrose (Dextrose 50 % 25 Gm/50 Ml Syringe) 25 gm IVPUSH Q15M PRN; Protocol PRN Reason: per Hypoglycemia Standing Ord. Last Admin: 09/18/22 12:32 Dose: 25 gm Documented By: BALAJI Furosemide (Furosemide 40 Mg Tablet) 40 mg PO DAILY [facility]; Protocol Last Admin: 09/21/22 07:57 Dose: 40 mg Documented By: TORSTEN Glucose (Glucose Gel 15 Gm Gel..Gram.) 15 gm PO Q15M PRN; Protocol PRN Reason: per Hypoglycemia Standing Ord. Insulin Glargine (Insulin Glargine,Hum.Rec.Anlog 100 Unit/Ml 10 Ml Vial) 15 unit SUBCUT BEDTIME [facility] Last Admin: 09/20/22 20:32 Dose: 15 unit Documented By: TONNY Insulin Human Lispro (Insulin Lispro 100 Unit/Ml 3 Ml Vial) 0 unit SUBCUT QIDACHS [facility]; Protocol Last Admin: 09/21/22 11:40 Dose: 16 unit Documented By: TORSTEN Lactulose (Lactulose 20 Gm/30 Ml Solution) 30 gm PO BID [facility] Last Admin: 09/21/22 07:56 Dose: 30 gm Documented By: TORSTEN Melatonin (Melatonin 3 Mg Tablet) 6 mg PO BEDTIME PRN PRN Reason: Insomnia Midodrine (Midodrine Hcl 10 Mg Tablet) 10 mg PO TIDWM [facility] Last Admin: 09/21/22 11:40 Dose: 10 mg Documented By: TORSTEN Omeprazole (Omeprazole 40 Mg Capsule.Dr) 40 mg PO BID@0630,1630 [facility] Last Admin: 09/21/22 05:48 Dose: 40 mg Documented By: TONNY Ondansetron HCl (Ondansetron Hcl 4 Mg/2 Ml Vial) 4 mg IVPUSH Q8H PRN PRN Reason: Nausea and Vomiting Last Admin: 09/19/22 17:28 Dose: 4 mg Documented By: RIOS Pharmacy Consult (Consult Rx Perform Med Rec) 1 each MISCELLANE ONCE PRN PRN Reason: Consult order Pregabalin (Pregabalin 25 Mg Capsule) 25 mg PO BID [facility] Last Admin: 09/21/22 07:57 Dose: 25 mg Documented By: TORSTEN Sodium Chloride (0.9 % Sodium Chloride Flush 3 Ml Syringe) [facility] Last Admin: 09/21/22 07:58 Dose: 3 ml Documented By: TORSTEN Spironolactone (Spironolactone 25 Mg Tablet) 25 mg PO BID@0900,1800 [facility]; Protocol Last Admin: 09/21/22 07:57 Dose: 25 mg Documented By: TORSTEN Labs 09/18/22 06:49 09/19/22 06:16 Labs: Laboratory Results - last 24 hr 09/20/22 09/20/22 09/21/22 16:32 20:05 07:47 POC Glucose 180 H 175 H 323 H 09/21/22 11:11 POC Glucose 371 H* Microbiology Microbiology Results: Microbiology 09/18/22 10:30 Gram Stain - Final Ascites Fluid Anaerobic Culture - Preliminary No growth to date. Body Fluid Culture - Final No growth after 2 days Assessment and Plan (1) Ascites: Status: Acute (2) Cirrhosis: Status: Acute Plan 57-year-old female with pertinent history of cirrhosis, insulin-dependent diabetes mellitus, gastroesophageal reflux disease, essential hypertension who presents to the emergency department for evaluation of abdominal discomfort and diagnosed to have significant abdominal distention likely related to ascites, abdominal ultrasound showed liver cirrhosis, ascites cholelithiasis without evidence of cholecystitis. Ascites with underlying cirrhosis with chronic abdominal pain patient admitted to medical floor and underwent paracentesis, 6 L of fluid fluid was removed, fluid studies not consistent with SBP, post paracentesis patient treated with IV albumin, due to recurrent ascites patient dose of Aldactone was increased from 12.5 b.i.d. to 25 mg b.i.d. patient evaluated by Nephrology they recommend to change Lasix to torsemide 20 mg daily and increase dose of Aldactone to 50 mg twice Daily. Patient seen in consultation by Dr. Mesa , he will arrange for outpatient paracentesis Q weekly, Dr. Mesa office will notify patient for appointment she is recommended to follow fluid restriction of 1500 mL and to have close outpatient follow-up with Gastroenterology.? anterior abdominal pain is likely related to abdominal wall stretching that will benefit with Q weekly paracentesis use as needed hot packs, recent CT abdomen and pelvis showed liver cirrhosis no evidence of thrombosis of portal vein cholelithiasis with no cholecystitis, borderline splenomegaly and no evidence of acute intra-abdominal process to explain patient's pain symptoms. Will follow labs at a.m. If patient noted to have low blood pressure will reduce dose of Aldactone back to 25 b.i.d. ?Insulin-dependent diabetes mellitus fluctuating blood sugars, Continue Lantus at bedtime and follow blood sugar q.i.d. and diabetic diet ?Thrombocytopenia and coagulopathy due to cirrhosis, no active bleeding noted recommend close outpatient follow-up with Gastroenterology ?Hypoalbuminemia in the setting of cirrhosis. ?Chronic normocytic anemia related to chronic disease, stable hematocrit, hematocrit above transfusion. Elevated ammonia level of 78 on admission patient noted to have no confusion or encephalopathy, ammonia improved to 54, continue lactulose. Patient discharged home 09/20 but daughter appealed discharge requesting for meetings with all providers explained to her that all providers have individually seen the patient and given their input and she is being discharged home with follow-up with gastroenterology as well as Nephrology she has to be compliant with her home medications and her appointments as outpatient. Time Spent With Patient Time: Total time managing care of this patient today ____ minutes. Quality Stroke Does the patient have a stroke diagnosis?: No VTE Prior VTE?: No VTE Risk Level:: Medical - moderate - high VTE Device Contraindication: N/A - Device Ordered VTE Drug Contraindication: Treatment Not Indicated
--- NOTE | 2022-09-21 16:12 | MHC.CM.PN ---
OF THIS NOTE, NO [facility] DETERMINATION RECEIVED. HOSPITALIST MADE AWARE
[2022-09-21 16:43] LABS: Glucose, Whole Blood 297 mg/dL (60-115)
[2022-09-21] MEDS: Spironolactone 25 MG TABLET 50 MG PO (17:01)
[2022-09-21 19:51] VITALS: BP 116/61; PULSE 76; RESP 18; TEMP 36.4; O2SAT 98
[2022-09-21 20:39] LABS: Glucose, Whole Blood 294 mg/dL (60-115)
[2022-09-21] MEDS: Insulin Glargine,Hum.rec.anlog 100 UNIT/ML 10 ML VIAL 18 UNIT SUBCUT (20:52)
[2022-09-22] MEDS: ondansetron HCL 4 MG/2 ML VIAL IVPUSH ×3 (00:06→20:46)
[2022-09-22] MEDS: Morphine Sulfate 4 MG/ML CARTRIDGE IVPUSH (00:27)
[2022-09-22 03:18] VITALS: BP 95/53; PULSE 75; RESP 18; TEMP 36.6; O2SAT 97
[2022-09-22] MEDS: Omeprazole 40 MG CAPSULE.DR PO ×2 (05:42→17:12)
[2022-09-22 06:31] LABS: Anion Gap 11 (12-20); Blood Urea Nitrogen 16 mg/dL (9-16); Carbon Dioxide 30 mmol/L (22-29); Chloride 98 mmol/L (96-108); Creatinine Clr Calc Pharmacy 61.1; Estimated Glomerular Filt Rate 58; Glucose Random 317 mg/dL (60-115); Potassium 3.7 mmol/L (3.3-5.1); Sodium 135 mmol/L (135-145)
[2022-09-22 07:58] LABS: Glucose, Whole Blood 390 mg/dL (60-115)
[2022-09-22 08:00] VITALS: BP 110/65; PULSE 80; RESP 18; TEMP 36.5; O2SAT 96
[2022-09-22] MEDS: Insulin Lispro 100 UNIT/ML 3 ML VIAL SUBCUT ×3 (08:43→17:12)
[2022-09-22] MEDS: carvediloL 3.125 MG TABLET PO ×2 (08:44→20:41)
[2022-09-22] MEDS: Torsemide 20 MG TABLET PO (08:44)
[2022-09-22] MEDS: Pregabalin 25 MG CAPSULE PO ×2 (08:44→20:41)
[2022-09-22] MEDS: Spironolactone 25 MG TABLET 50 MG PO ×2 (08:44→17:12)
[2022-09-22] MEDS: Midodrine HCl 10 MG TABLET PO ×3 (08:44→17:12)
[2022-09-22] MEDS: 0.9 % Sodium Chloride Flush 3 ML SYRINGE IVFLUSH ×3 (08:45→20:41)
[2022-09-22] MEDS: oxyCODONE HCl Immed Release 5 MG TABLET PO (11:12)
[2022-09-22 12:12] LABS: Glucose, Whole Blood 425 mg/dL (60-115)
--- NOTE | 2022-09-22 12:27 | MHC.CM.PN ---
CM RECEIVED A MESSAGE FROM [employer] INDICATING THEY WERE AGREEING WITH PHYSICIAN DC PT WILL ASSUME FINANCIAL RESPONSIBILITY STARTING 09/22/22 AT 1200 HOURS IF SHE IS NOT DISCHARGED PER [facility], THEY HAVE NOTIFIED PTS DAUGHTER VIA VOICE MAIL
[2022-09-22] MEDS: Insulin Lispro 100 UNIT/ML 3 ML VIAL 10 UNIT SUBCUT (12:53)
--- NOTE | 2022-09-22 12:56 | PM.PNNEP ---
Subjective Subjective Date of Service: 09/22/22 Interval history: no events labs reviewed Physical Exam Vital Signs: Vital Signs: Last Vital Signs Temp 97.7 F 09/22/22 08:00 Pulse 80 09/22/22 08:00 Resp 18 09/22/22 08:00 BP 110/65 09/22/22 08:00 Pulse Ox 96 09/22/22 08:00 O2 Del Method 09/22/22 08:00 O2 Flow Rate 2 09/17/22 23:43 BMI result Body Mass Index 26.1 Const: Other: General? resting comfortably in no acute distress.? Neck? supple no JVD. CVS? regular rate rhythm Respiratory lungs clear to auscultation, no respiratory distress, no wheeze, no rhonchi. Gastrointestinal abdomen less distended, bowel sounds audible, no guarding , no rigidity, no abdominal wall palpable masses. Extremities no edema. Neuro nonfocal , speech clear, no asterixis Skin no rash. Psych appropriate affect Objective Data Labs 09/18/22 06:49 09/22/22 05:38 Labs: Laboratory Results - last 24 hr 09/21/22 09/21/22 09/22/22 15:54 20:32 05:38 Sodium 135 Potassium 3.7 Chloride 98 Carbon Dioxide 30 H Anion Gap 11 L BUN 16 Creatinine 0.98 Estim Creat Clear Calc 61.1 Estimated GFR 58 POC Glucose 297 H 294 H Random Glucose 317 H Calcium 8.0 L 09/22/22 09/22/22 07:46 12:06 Sodium Potassium Chloride Carbon Dioxide Anion Gap BUN Creatinine Estim Creat Clear Calc Estimated GFR POC Glucose 390 H* 425 H* Random Glucose Calcium Microbiology Microbiology Results: Microbiology 09/18/22 10:30 Ascites Fluid Gram Stain - Final 09/18/22 10:30 Ascites Fluid Anaerobic Culture - Preliminary No growth to date. 09/18/22 10:30 Ascites Fluid Body Fluid Culture - Final No growth after 2 days 09/18/22 Unknown Urine clean catch - Urine henderson top Urine Culture - Final Strep agalactiae (Grp B) Procedures Date of Service Date of Service: 09/22/22 Assessment & Plan Assessment and plan (1) Ascites: Status: Inactive Assessment and Plan: 57-year-old female with pertinent history of cirrhosis, insulin-dependent diabetes mellitus, gastroesophageal reflux disease, essential hypertension who presents with ascites, abdominal ultrasound showed liver cirrhosis, ascites cholelithiasis without evidence of cholecystitis. Pt underwent paracentesis, 6 L of fluid fluid was removed, fluid studies not consistent with SBP, and post paracentesis patient treated with IV albumin, due to recurrent ascites patient started on lasix / aldactone and meds titrated in hospital. 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 Hypervolemic Renal function stable Plan: - c/w torsemide 20mg po daily which will have a longer half life in cirrhotics. - c/w Spironolactone to 50 mg PO bid - daily labs if in hospital Time Spent With Patient Time: Total time managing care of this patient today ____ minutes. Progress Note: Quality Stroke Does the patient have a stroke diagnosis?: No
--- NOTE | 2022-09-22 14:40 | HO.PM.IMPN ---
Subjective Subjective Date of Service: 09/22/22 Interval History: No acute issues overnight. Continues mild diffuse abdominal pain with nausea Review of Systems Denies chest pain Denies shortness of breath Admits to nausea without vomiting Denies fever chills Physical Exam Vital Signs: Vital Signs: Last Vital Signs Temp 97.7 F 09/22/22 08:00 Pulse 80 09/22/22 08:00 Resp 18 09/22/22 08:00 BP 110/65 09/22/22 08:00 Pulse Ox 96 09/22/22 08:00 O2 Del Method 09/22/22 08:00 O2 Flow Rate 2 09/17/22 23:43 BMI result Body Mass Index 26.1 Const: Other: Awake alert no acute distress Resp: Other: Clear to auscultation bilaterally no rales rhonchi or wheezes Cardio: Other: No S4; positive S1-S2; no S3 murmurs rubs or gallops GI: Other: Mildly distended diffusely tender without peritoneal signs Extrem: Other: No edema bilaterally Objective Data Active Medications Carvedilol (Carvedilol 3.125 Mg Tablet) 3.125 mg PO BID [facility]; Protocol Last Admin: 09/22/22 08:44 Dose: 3.125 mg Documented By: COLLIN Dextrose (Dextrose 50 % 25 Gm/50 Ml Syringe) 25 gm IVPUSH Q15M PRN; Protocol PRN Reason: per Hypoglycemia Standing Ord. Last Admin: 09/18/22 12:32 Dose: 25 gm Documented By: DEMETRIO-LUIS Glucose (Glucose Gel 15 Gm Gel..Gram.) 15 gm PO Q15M PRN; Protocol PRN Reason: per Hypoglycemia Standing Ord. Insulin Glargine (Insulin Glargine,Hum.Rec.Anlog 100 Unit/Ml 10 Ml Vial) 18 unit SUBCUT BEDTIME [facility] Last Admin: 09/21/22 20:52 Dose: 18 unit Documented By: CHAVA Insulin Human Lispro (Insulin Lispro 100 Unit/Ml 3 Ml Vial) 0 unit SUBCUT QIDACHS [facility]; Protocol Last Admin: 09/22/22 12:53 Dose: 16 unit Documented By: COLLIN Lactulose (Lactulose 20 Gm/30 Ml Solution) 30 gm PO BID [facility] Last Admin: 09/22/22 09:18 Dose: Not Given Documented By: COLLIN Non-Admin Reason: Patient Refused Melatonin (Melatonin 3 Mg Tablet) 6 mg PO BEDTIME PRN PRN Reason: Insomnia Midodrine (Midodrine Hcl 10 Mg Tablet) 10 mg PO TIDWM [facility] Last Admin: 09/22/22 12:54 Dose: 10 mg Documented By: COLLIN Omeprazole (Omeprazole 40 Mg Capsule.) 40 mg PO BID@0630,1630 [facility] Last Admin: 09/22/22 05:42 Dose: 40 mg Documented By: CHAVA Ondansetron HCl (Ondansetron Hcl 4 Mg/2 Ml Vial) 4 mg IVPUSH Q8H PRN PRN Reason: Nausea and Vomiting Last Admin: 09/22/22 08:54 Dose: 4 mg Documented By: COLLIN Pharmacy Consult (Consult Rx Perform Med Rec) 1 each MISCELLANE ONCE PRN PRN Reason: Consult order Pregabalin (Pregabalin 25 Mg Capsule) 25 mg PO BID [facility] Last Admin: 09/22/22 08:44 Dose: 25 mg Documented By: COLLIN Sodium Chloride (0.9 % Sodium Chloride Flush 3 Ml Syringe) [facility] Last Admin: 09/22/22 08:45 Dose: 3 ml Documented By: COLLIN Spironolactone (Spironolactone 25 Mg Tablet) 50 mg PO BID@0900,1800 [facility]; Protocol Last Admin: 09/22/22 08:44 Dose: 50 mg Documented By: COLLIN Torsemide (Torsemide 20 Mg Tablet) 20 mg PO DAILY [facility]; Protocol Last Admin: 09/22/22 08:44 Dose: 20 mg Documented By: COLLIN Labs 09/18/22 06:49 09/22/22 05:38 Labs: Laboratory Results - last 24 hr 09/21/22 09/21/22 09/22/22 15:54 20:32 05:38 Anion Gap 11 L Estim Creat Clear Calc 61.1 Estimated GFR 58 POC Glucose 297 H 294 H Random Glucose 317 H Calcium 8.0 L 09/22/22 09/22/22 07:46 12:06 Anion Gap Estim Creat Clear Calc Estimated GFR POC Glucose 390 H* 425 H* Random Glucose Calcium Microbiology Microbiology Results: Microbiology 09/18/22 10:30 Gram Stain - Final Ascites Fluid Anaerobic Culture - Preliminary No growth to date. Body Fluid Culture - Final No growth after 2 days Assessment and Plan (1) Ascites: Status: Acute (2) Cirrhosis: Status: Acute (3) Diabetes mellitus with hyperglycemia: Status: Acute Plan 57-year-old female with pertinent history of cirrhosis, insulin-dependent diabetes mellitus, gastroesophageal reflux disease, essential hypertension who presents to the emergency department for evaluation of abdominal discomfort and diagnosed to have significant abdominal distention likely related to ascites, abdominal ultrasound showed liver cirrhosis, ascites cholelithiasis without evidence of cholecystitis. 1.Ascites with underlying cirrhosis with chronic abdominal pain -admitted to medical floor and underwent paracentesis, 6 L of fluid fluid was removed, fluid studies not consistent with SBP, post paracentesis patient treated with IV albumin, due to recurrent ascites patient dose of Aldactone was increased from 12.5 b.i.d. to 25 mg b.i.d. -torsemide 20 mg daily/Aldactone to 50 mg BID/lactulose -outpatient paracentesis Q weekly( Dr. Mesa) -fluid restriction of 1500 mL a 2.?Insulin-dependent diabetes mellitus (poorly control secondary to noncompliance) - Lantus at bedtime and follow blood sugar q.i.d. -diabetic diet ? Patient discharged home 09/20 but daughter appealed discharge . Awake decision Time Spent With Patient Time: Total time managing care of this patient today ____ minutes. Quality Stroke Does the patient have a stroke diagnosis?: No VTE Prior VTE?: No VTE Risk Level:: Medical - moderate - high VTE Device Contraindication: N/A - Device Ordered VTE Drug Contraindication: Treatment Not Indicated
[2022-09-22 15:45] VITALS: BP 116/70; PULSE 85; RESP 16; TEMP 36.4; O2SAT 95
[2022-09-22 16:46] LABS: Glucose, Whole Blood 263 mg/dL (60-115)
[2022-09-22 19:31] VITALS: BP 114/59; PULSE 84; RESP 15; TEMP 36.5; O2SAT 97
[2022-09-22 20:18] LABS: Glucose, Whole Blood 104 mg/dL (60-115)
[2022-09-23 04:00] VITALS: BP 94/53; PULSE 75; RESP 16; TEMP 36.6; O2SAT 96
[2022-09-23] MEDS: Omeprazole 40 MG CAPSULE.DR PO (05:27)
[2022-09-23 08:00] VITALS: BP 105/58; PULSE 76; RESP 18; TEMP 36.6; O2SAT 99
[2022-09-23 08:14] LABS: Glucose, Whole Blood 210 mg/dL (60-115)
[2022-09-23] MEDS: Spironolactone 25 MG TABLET 50 MG PO (08:38)
[2022-09-23] MEDS: Pregabalin 25 MG CAPSULE PO (08:38)
[2022-09-23] MEDS: carvediloL 3.125 MG TABLET PO (08:38)
[2022-09-23] MEDS: Torsemide 20 MG TABLET PO (08:38)
[2022-09-23] MEDS: Midodrine HCl 10 MG TABLET PO (08:38)
[2022-09-23] MEDS: Insulin Lispro 100 UNIT/ML 3 ML VIAL SUBCUT ×2 (08:38→11:47)
[2022-09-23] MEDS: 0.9 % Sodium Chloride Flush 3 ML SYRINGE IVFLUSH (08:38)
--- NOTE | 2022-09-23 08:58 | PC.NURSE ---
called martin stanford on pt at 08:50 after she suddenly became unresponsive to verbal commands and appeared to have weakened pulse & respirations. MDs concluded that she was having a Pseudocatotonic episode and vitals were within normal limits. Will continue to monitor patient
[2022-09-23 08:59] LABS: Glucose, Whole Blood 206 mg/dL (60-115)
--- NOTE | 2022-09-23 09:24 | PC.RT ---
RT's responded to code blue called. Pt noted to have spontaneous resp and vital signs were in normal parameters. Physicians present, RT's dismissed by .
--- NOTE | 2022-09-23 09:45 | MHC.CM.PN ---
Addendum entered by Erlinda Cutler 09/23/22 11:06: PT WILL DC HOME WITH NO SERVICES Addendum entered by Erlinda Cutler 09/23/22 11:04: CM MET WITH PT TO DISCUSS DC SHE IS AWARE BLS TRANSPORT WAS BOOKED WITH [facility] FOR 1130 HOURS SHE WAS ALSO ASSURED IF THEY ARE LATE, SHE WILL NOT BE PENALIZED FOR NOT LEAVING BEFORE 1200 HOURS IT WOULD BE OUT OF HER CONTROL SHE IS AGREEABLE TO DC/TRANSPORT PLAN Original Note: PT HAS LOST HER DC APPEAL AND MUST DC BY [facility] TODAY OR ASSUME FINANCIAL RESPONSIBILITY MESSAGE LEFT FOR HER DAUGHTER, GIRISH [phone] TO DETERMINE IF PT WILL NEED TRANSPORT ARRANGED
--- NOTE | 2022-09-23 10:02 | P.DS_ITS ---
DS: Providers Provider Date of Service: 09/23/22 Date of admission: 09/17/22 23:28 Date of discharge: 09/23/22 Primary care physician: Eden Carrillo MD Consults: 09/17/22 23:32 Consult to Gastroenterology Routine Consulting Provider: Manoj Mesa Reason for consultation: decompensated cirrhosis 09/19/22 08:37 Consult to Nephrology Routine Consulting Provider: Gerry Fried Reason for consultation: medication adjustment for recurrent ascites Has provider been notified: No DS: Diagnosis Discharge Diagnosis (1) Ascites: Status: Acute (2) Cirrhosis: Status: Acute (3) Diabetes mellitus with hyperglycemia: Status: Acute DS: Summary Hospital Course Hospital Course: Date of Service: 09/17/22 Chief Complaint: Abdominal Pain ?this is a 57-year-old female with pertinent history of cirrhosis, insulin- dependent diabetes mellitus, gastroesophageal reflux disease, essential hypertension who presents to the emergency department for evaluation of abdominal discomfort.? Patient was seen in the ER and underwent paracentesis on 09/06 and 09/13.? Approximately 13-14 L ascitic fluid drained during the last 2 visits with 7 L drained on 09/13? By IR.? Patient states she started having abdominal discomfort with swelling and epigastric pain that started yesterday.? It has been constant and without any radiation.? The pain has become progressive along with the swelling.? States she is compliant with her diuretics.? No fever, nausea, vomiting, hematemesis, melena, hematochezia, changes in urinary or bowel habits. ? States she is compliant with insulin for her diabetes mellitus. ?in the emergency department, blood glucose was noted to be in the 500s.? Marked abdominal swelling noted. Cirrhosis with ascites 57-year-old female with pertinent history of cirrhosis, insulin-dependent diabetes mellitus, gastroesophageal reflux disease, essential hypertension who presents to the emergency department for evaluation of abdominal discomfort and diagnosed to have significant abdominal distention related to ascites, patient admitted to medical floor and underwent paracentesis, 6 L of fluid fluid was removed, fluid studies not consistent with SBP, Therefore did not require antibiotic treatment, post paracentesis patient treated with IV albumin, due to recurrent ascites patient dose of Aldactone was increased from 12.5 b.i.d. to 25 mg b.i.d. and prior to discharge patient was evaluated by Dr. Ty from Nephrology in dose of Aldactone has been increased to 50 mg twice Daily patient is recommended to continue Lasix 40 mg daily and to restrict fluid intake patient was seen in consultation by Dr. Mesa , patient will be arrange for outpatient paracentesis Q weekly, Dr. Mesa office will notify patient for appointment she is recommended to follow fluid restriction of 1500 mL and to have close outpatient follow-up with Gastroenterology. Patient complained of anterior abdominal wall discomfort explained to patient it is related to abdominal wall stretching that will benefit with Q weekly paracentesis use as needed hot packs, recent CT abdomen and pelvis showed liver cirrhosis no evidence of thrombosis of portal vein cholelithiasis with no cholecystitis borderline splenomegaly and no evidence of acute intra-abdominal process to explain patient's pain symptoms. ?Insulin-dependent diabetes mellitus fluctuating blood sugars, Continue Lantus 20 units at bedtime and follow blood sugar q.i.d. and diabetic diet Thrombocytopenia and coagulopathy due to cirrhosis, no active bleeding noted ?Hypoalbuminemia in the setting of cirrhosis ?Chronic normocytic anemia related to chronic disease, stable hematocrit, hematocrit above transfusion. Elevated ammonia level of 78 on admission patient noted to have no confusion or encephalopathy continue lactulose. On the day of discharge, patient exhibited a pseudo catatonic episode similar to past episodes. This lasted approximately 15 minutes after which she return to normal cognitive function. She will be discharged as planned with follow-up with Dr. Mesa Time Spent with Patient Time attestation: Total time managing care of this patient today ____ minutes. Discharge coordination time: Greater than 30 minutes Quality: Safe Use of Opioids Does Pt have an Active Cancer Diagnosis on the Problem List?: No Quality: Stroke Does the patient have a stroke diagnosis?: No Physical Exam Vital Signs: Vital Signs: Last Vital Signs Temp 97.8 F 09/23/22 08:00 Pulse 76 09/23/22 08:00 Resp 18 09/23/22 08:00 BP 105/58 L 09/23/22 08:00 Pulse Ox 99 09/23/22 08:00 O2 Del Method 09/23/22 08:00 O2 Flow Rate 2 09/17/22 23:43 BMI result Body Mass Index 26.1 Const: Other: Awake alert no acute distress Resp: Other: Clear to auscultation bilaterally no rales rhonchi or wheezes Cardio: Other: No S4; positive S1-S2; no S3 murmurs rubs or gallops GI: Other: Mildly distended diffusely tender without peritoneal signs Extrem: Other: No edema bilaterally DS: Data Data Completed and Pending Completed studies during hospitalization [Text1]: Procedures Drainage of Peritoneal Cavity with Drainage Device, Percutaneous Approach (04/25/22) Drainage of Peritoneal Cavity, Percutaneous Approach (08/15/22) Excision of Stomach, Pylorus, Via Natural or Artificial Opening Endoscopic, Diagnostic (07/14/22) Insertion of Infusion Device into Right Brachial Vein, Percutaneous Approach (06/14/21) Transfusion of Nonautologous Red Blood Cells into Peripheral Vein, Percutaneous Approach (07/14/22) Labs on day of discharge: Laboratory Results - last 24 hr 09/22/22 09/22/22 09/22/22 12:06 16:37 20:09 POC Glucose 425 H* 263 H 104 09/23/22 09/23/22 07:38 08:53 POC Glucose 210 H 206 H Discharge Plan Discharge Anticipated Discharge Date/Time: 09/20/22 11:23 Patient Disposition: Home, Self-Care Discharge Diagnosis: Decompensated cirrhosis with ascites Referrals: Eden Han MD [Primary Care Provider] - 1 Week Discharge Medications: New spironolactone [Aldactone] 50 mg tablet 50 mg PO BID Qty: 60 0RF torsemide 20 mg tablet 20 mg PO DAILY Qty: 30 0RF oxycodone 5 mg tablet 5 mg PO Q8H PRN (Reason: pain) Qty: 10 0RF Rx Instructions: Partial Fill upon patient request. Continued insulin glargine [Lantus Solostar U-100 Insulin] 100 unit/mL (3 mL) insulin pen 20 unit subcut DAILY carvedilol 3.125 mg tablet 1 tab PO BID bisacodyl [Laxative (bisacodyl)] 5 mg tablet,delayed release (DR/EC) 5 mg PO DAILY omeprazole 40 mg capsule,delayed release(DR/EC) 1 cap PO BID nystatin 100,000 unit/gram powder 1 applic topical BID lactulose 10 gram/15 mL solution 45 ml PO DAILY pregabalin 25 mg capsule 1 cap PO BID midodrine 10 mg Tablet 10 mg PO TIDWM Qty: 90 0RF Discontinued furosemide 40 mg tablet 1 tab PO DAILY spironolactone 25 mg Tablet 12.5 mg PO BID Qty: 30 0RF Protocol: Hold for SBP< HOLD for SBP < : 90 Discharge Orders: Discharge Order (Routine); Ordered 09/20/22 Ordered By: Cleo Alvarez Diet: Diabetic diet Activity on Discharge: As tolerated Stand Alone Forms: Patient Portal Discharge page Care Plan Goals: Cirrhosis with ascites recommend outpatient paracentesis q weekly, Dr. Mesa office will arrange for it and their office will call patient for appointment. Follow diabetic diet and monitor blood sugars Strongly recommend to take all medications as prescribed including diuretics and lactulose Dose of Aldactone increased to 50 mg twice Daily, continue Lasix 40 mg daily fluid restriction 1500 ml Health Concerns: Diabetes strongly suggest diabetic diet and continue Lantus Plan of Treatment: Follow-up with primary care physician call for appointment, close outpatient follow-up with Dr. Mesa, if no response to diuretics patient will be considered for TIPs procedure Assessment: As above
--- NOTE | 2022-09-23 10:49 | PM.PNNEP ---
Subjective Subjective Date of Service: 09/23/22 Interval history: discharging today no issues tolerating diuresis Physical Exam Vital Signs: Vital Signs: Last Vital Signs Temp 97.8 F 09/23/22 08:00 Pulse 76 09/23/22 08:00 Resp 18 09/23/22 08:00 BP 105/58 L 09/23/22 08:00 Pulse Ox 99 09/23/22 08:00 O2 Del Method 09/23/22 08:00 O2 Flow Rate 2 09/17/22 23:43 BMI result Body Mass Index 26.1 Const: Other: General? resting comfortably in no acute distress.? Neck? supple no JVD. CVS? regular rate rhythm Respiratory lungs clear to auscultation, no respiratory distress, no wheeze, no rhonchi. Gastrointestinal abdomen less distended, bowel sounds audible, no guarding , no rigidity, no abdominal wall palpable masses. Extremities no edema. Neuro nonfocal , speech clear, no asterixis Skin no rash. Psych appropriate affect Objective Data Labs 09/18/22 06:49 09/22/22 05:38 Labs: Laboratory Results - last 24 hr 09/22/22 09/22/22 09/22/22 12:06 16:37 20:09 POC Glucose 425 H* 263 H 104 09/23/22 09/23/22 07:38 08:53 POC Glucose 210 H 206 H Microbiology Microbiology Results: Microbiology 09/18/22 10:30 Ascites Fluid Gram Stain - Final 09/18/22 10:30 Ascites Fluid Anaerobic Culture - Final NO GROWTH AFTER 5 DAYS 09/18/22 10:30 Ascites Fluid Body Fluid Culture - Final No growth after 2 days 09/18/22 Unknown Urine clean catch - Urine henderson top Urine Culture - Final Strep agalactiae (Grp B) Procedures Date of Service Date of Service: 09/23/22 Assessment & Plan Assessment and plan (1) Ascites: Status: Inactive Assessment and Plan: 57-year-old female with pertinent history of cirrhosis, insulin-dependent diabetes mellitus, gastroesophageal reflux disease, essential hypertension who presents with ascites, abdominal ultrasound showed liver cirrhosis, ascites cholelithiasis without evidence of cholecystitis. Pt underwent paracentesis, 6 L of fluid fluid was removed, fluid studies not consistent with SBP, and post paracentesis patient treated with IV albumin, due to recurrent ascites patient started on lasix / aldactone and meds titrated in hospital. 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 Hypervolemic Renal function stable Plan: - c/w torsemide 20mg po daily which will have a longer half life in cirrhotics. - c/w Spironolactone to 50 mg PO bid - ok for discharge Time Spent With Patient Time: Total time managing care of this patient today ____ minutes. Progress Note: Quality Stroke Does the patient have a stroke diagnosis?: No
[2022-09-23 11:33] LABS: Glucose, Whole Blood 440 mg/dL (60-115)
== END 2022-09-23 11:30 | disposition home or self-care (01) | DRG 432 ==
LOC: HO.ED 09-18 00:22 → HO.EDOVER 09-18 04:53 → HO.S3 09-18 17:45
PROVIDERS: Hospitalist; Radiology Diagnostic Radiology; Admitting Provider Student in an Organized Health Care Education/Training Program; Emergency Provider Emergency Medicine Emergency Medical Services; PCP Internal Medicine; Visit Provider Hospitalist
PROC: 0W9G3ZZ Drainage of Peritoneal Cavity, Percutaneous Approach (ICD-10-PCS; principal; 2022-09-18 10:00)
DX: K74.60 Unspecified cirrhosis of liver (principal); K76.7 Hepatorenal syndrome; D68.4 Acquired coagulation factor deficiency; R18.8 Other ascites; K76.6 Portal hypertension; E11.65 Type 2 diabetes mellitus with hyperglycemia; G40.909 Epilepsy, unspecified, not intractable, without status epilepticus; E88.09 Other disorders of plasma-protein metabolism, not elsewhere classified; E87.70 Fluid overload, unspecified; K76.0 Fatty (change of) liver, not elsewhere classified; K80.20 Calculus of gallbladder without cholecystitis without obstruction; K21.9 Gastro-esophageal reflux disease without esophagitis; I10 Essential (primary) hypertension; D69.59 Other secondary thrombocytopenia; D63.8 Anemia in other chronic diseases classified elsewhere; Z20.822 Contact with and (suspected) exposure to COVID-19; Z79.4 Long term (current) use of insulin; Z79.899 Other long term (current) drug therapy
CPT/HCPCS: 36415; 49083; 76705; 80048; 80076; 81001; 82009; 82042; 82140; 82947; 83036; 83615; 83690; 83986; 84157; 85025; 85610; 87070; 87073; 87086; 87147; 87205; 87635; 89051; 94799; 99285; J0696; J1170; J1940; J2270; J2405; P9047

== ENCOUNTER → 2022-10-01 06:59 | Day surgery (SDC) | payer OTHER, SELFPAY ==
[2022-10-01 07:29] LABS: MANUAL DIFF FLAG NO
[2022-10-01 07:31] LABS: Basophils Absolute Auto 0.1 X10*3/uL (0.0-0.2); Basophils Percent Auto 0.7 % (0-2); Hemoglobin 11.6 g/dl (12.0-16.0); Imm Gran Abs Auto 0.01 X10*3/uL (0.00-0.03); Imm Gran Pct Auto 0.1 % (0.0-0.4); Lymphocytes Absolute Auto 1.1 X10*3/uL (1.2-4.9); Lymphocytes Percent Auto 15.1 % (20-40); Mean Corpuscular HGB Conc 32.2 g/dl (31.0-35.0); Mean Corpuscular Hemoglobin 28.9 pg (27.0-33.0); Mean Corpuscular Volume 89.8 fL (80.0-98.0); Mean Platelet Volume 10.3 fL (9.4-12.3); Monocytes Absolute Auto 0.4 X10*3/uL (0.1-1.2); Monocytes Percent Auto 5.4 % (2-11); Neutrophils Absolute Auto 5.8 x10*3/uL (2.0-8.3); Neutrophils Percent Auto 78.7 % (45-73); Platelet Count 130 X10*3/uL (160-400); Red Blood Count 4.01 X10*6/uL (4.20-5.50); Red Cell Distribution Width 16.8 % (11.0-16.0); White Blood Count 7.4 X10*3/uL (4.8-10.8)
[2022-10-01 07:39] LABS: Partial Thromboplastin Time 28.5 SEC (26.0-36.4)
[2022-10-01 07:56] LABS: INTERNATIONAL NORM RATIO 1.2 (0.9-1.1); Prothrombin Time 14.1 SEC (10.0-13.1)
[2022-10-01 08:02] LABS: Glucose, Whole Blood 500 mg/dL (60-115)
[2022-10-01 08:02] LABS: Glucose, Whole Blood 498 mg/dL (60-115)
--- NOTE | 2022-10-01 15:36 | HO.RADPN ---
RADIOLOGY Narrative Narrative: RLQ paracentesis using 5 fr catheter. 5L clear yellow fluid rewmoved. No specimen sent.
== END ==
PROVIDERS: PCP Internal Medicine; Visit Provider Radiology Diagnostic Radiology
DX: K74.60 Unspecified cirrhosis of liver (principal)
CPT/HCPCS: 36415; 82947; 85025; 85610; 85730

== ENCOUNTER 2022-10-01 09:08 | Emergency (ER) | payer OTHER, SELFPAY ==
--- NOTE | ~2022-10-01 | US_ITS ---
EXAMINATION: ULTRASOUND-GUIDED PARACENTESIS CLINICAL INFORMATION: Ascites COMPARISON: Previous ultrasound most recent August 2022 TECHNIQUE: Procedure and risks and benefits including bleeding, infection and low blood pressure were discussed with the patient and informed consent was obtained. The right lower quadrant was prepped and draped in the usual sterile fashion. The skin and soft tissues were anesthetized with 1% lidocaine plain. Using ultrasound guidance and a 5 [place] 1 stick catheter, access to the ascitic fluid was obtained. 5.1 L of clear yellow fluid was removed. No specimen was sent. FINDINGS: There is a large amount of ascites. US/US paracentesis abd w/image IMPRESSION: Ultrasound-guided paracentesis.
--- NOTE | 2022-10-01 09:12 | ED_ITS ---
HPI - General Adult General Chief complaint: Abdominal Pain Stated complaint: Hyperglycemic Time Seen by Provider: 10/01/22 09:11 Source: patient Mode of arrival: ambulatory Limitations: no limitations History of Present Illness HPI narrative: Patient is a 57 year old assigned female at with a history of DM and cirrhosis with ascites presenting to the emergency department today with an elevated blood sugar. Patient reported to [facility] for an out patient paracentesis when the staff stated that her blood sugar was over 400. Patient states that she did not take her insulin today like she was supposed to. Patient states that she feels fine but her stomach is sore because it needs to be drained. Patient denies any dizziness, lightheadedness, nausea, vomiting, fever, chills, blurry vision, double vision, loss of vision, chest pain, difficulty breathing, shortness of breath, back pain, night sweats, pain with urination, increased urinary frequency, increased urinary urgency, blood in her urine or stool, sync ope or a near syncopal episode, recent trauma or falls, bowel incontinence, bladder incontinence, bowel retention, bladder retention, or any other complaints at this time. Severity: mild Relieving factors: none Exacerbating factors: none Associated symptoms: denies other symptoms Treatments prior to arrival: none Related Data Home Medications Medication Instructions Recorded Confirmed insulin glargine 100 unit/mL (3 20 unit subcut DAILY 07/14/22 09/18/22 mL) subcutaneous pen (Lantus Solostar U-100 Insulin) bisacodyl 5 mg tablet,delayed 5 mg PO DAILY 09/18/22 09/18/22 release (Laxative (bisacodyl)) carvedilol 3.125 mg tablet 1 tab PO BID 09/18/22 09/18/22 lactulose 10 gram/15 mL oral 45 ml PO DAILY 09/18/22 09/18/22 solution nystatin 100,000 unit/gram topical 1 applic topical BID 09/18/22 09/18/22 powder omeprazole 40 mg capsule,delayed 1 cap PO BID 09/18/22 09/18/22 release pregabalin 25 mg capsule 1 cap PO BID 09/18/22 09/18/22 Previous Rx's Medication Instructions Recorded midodrine 10 mg tablet 10 mg PO TIDWM #90 tabs 08/22/22 spironolactone 50 mg tablet 50 mg PO BID #60 tabs 09/20/22 (Aldactone) torsemide 20 mg tablet 20 mg PO DAILY #30 tabs 09/21/22 oxycodone 5 mg tablet 5 mg PO Q8H PRN pain #10 tabs 09/23/22 Allergies Allergy/AdvReac Type Severity Reaction Status Date / Time No Known Allergies Allergy Verified 09/17/22 20:25 [No Known Allergies*] Review of Systems Constitutional: Constitutional: Reports no additional constitutional complaints, Denies chills, Denies fever(s) and Denies night sweats Eyes: Eyes: Reports no additional eye complaints, Denies blurry vision, Denies change in vision, Denies diplopia, Denies eye discharge, Denies loss of vision and Denies eye pain ENT: Denies dizziness Cardiovascular: Cardiovascular: Reports no additional cardiovascular complaints, Denies chest pain, Denies lightheadedness, Denies Loss of Consciousness and Denies dyspnea Respiratory: Respiratory: Reports no additional respiratory complaints and Denies dyspnea Gastrointestinal: Gastrointestinal: Reports no additional gastrointestinal complaints, Reports abdominal pain (chronic, secondary to ascites), Denies vignesh dick, Denies hematochezia, Denies change in bowel habits and Denies change in stool character Genitourinary: Genitourinary: Denies hematuria, Denies urinary frequency, Denies dysuria, Denies urinary incontinence, Denies urinary hesitancy and Denies urinary urgency Musculoskeletal: Musculoskeletal: Reports no additional musculoskeletal complaints, Denies numbness and Denies tingling Neurologic: Denies dizziness, Denies loss of vision, Denies numbness and Denie s tingling Psychiatric: Psychiatric: Reports no additional psychiatric complaints Endocrine: Endocrine: Reports no additional endocrine complaints Hematologic/Lymphatic: Hematologic/Lymphatic: Reports no additional hematologic/lymphatic complaints Allergic/Immunologic: Allergic/Immunologic: Reports no additional allergic/immunologic complaints PMFSH Past Medical History Attestation statement: The following information was validated with the patient. Source: old records reviewed and nursing notes reviewed Medical History Ascites Cirrhosis Cirrhosis Diabetes (~01/31/21) Diabetes mellitus with hyperglycemia Diabetes type 2, controlled Gallstones Hepatic failure due to alcoholism HTN (hypertension) Kidney, perinephric abscess Liver cirrhosis Portal hypertension SBP (spontaneous bacterial peritonitis) UTI (urinary tract infection) UTI (urinary tract infection) UTI due to extended-spectrum beta lactamase (ESBL) producing Escherichia coli Varices of other sites Family History Family History Mother No problems noted. Father No problems noted. Social History Social History Household Members: Children Household Members Other:: Patient's son Housing: House Do you presently have visiting nurse or other home services: No Alcohol intake: never Patient Tobacco Use Status: Never used Tobacco e-Cigarette/Vaping Use: Never Used Second Hand Smoke Exposure: No Advance Directives: Yes Advance Directives on File: Yes Advance Directives Date on File: 06/15/21 service: No Current occupational status: unemployed and disabled Cognitive needs: No Hearing needs: No Vision needs: No Physical Exam ED Vital Signs: Vital Signs - 24 hr 10/01/22 09:14 10/01/22 10:41 10/01/22 10:51 Temperature 98.4 F Pulse Rate 95 108 H Respiratory Rate 20 18 20 Blood Pressure 125/79 95/66 Pulse Oximetry 96 97 Oxygen Delivery Method Room Air Room Air 10/01/22 13:32 Temperature 98.3 F Pulse Rate 89 Respiratory Rate 16 Blood Pressure 109/63 Pulse Oximetry 97 Oxygen Delivery Method Room Air BMI result Body Mass Index 22.1 Const General: cooperative, no acute distress, alert and awake Nutritional Appearance: well nourished Orientation/consciousness: patient oriented x3 Limitations: no limitations HENMT Head: Yes normal to inspection and Yes atraumatic Ears: hearing grossly normal bilaterally and external ears normal General nose exam: Normal external nose present, no nasal discharge noted and no epistaxis Face and sinus: Yes normal facial exam, No abrasion and No laceration Mouth: Normal oral and palatal mucosa present, no drooling and no muffled voice Eyes General: appearance normal, both eyes and all related structures Periorbital: periorbital findings normal Eyelids: Yes eyelids normal Conjunctivae: conjunctivae normal Pupils: Equal, round and reactive pupils present EOM: EOMs intact bilaterally Neck Neck: Yes normal visual inspection, Yes full ROM and Yes no lymphadenopathy Chest Chest palpation & inspection: normal inspection of the chest Resp Effort & Inspection: normal respiratory effort and able to speak in complete sentences Auscultation: clear to auscultation bilaterally Cardio Rate: regular rate Rhythm: regular rhythm GI Inspection: Yes distended Palpation (GI): Ascites present Neuro General: patient oriented x3 and moves all extremities Cranial nerves: Yes Equal, round and reactive pupils present Cognition (Neuro): normal cognition Motor exam (neuro): 5/5 motor strength present throughout Sensory Exam: Normal double simultaneous stimulation for sensation Coordination: [id number] test normal Extrem General: Yes normal to inspection, Yes full ROM and Yes capillary refill normal Psych Appearance: grossly normal Mental Status: mental status grossly normal Affect: normal affect Attitude: cooperative Thought process: Normal thought process present Thought content: Normal thought content present Insight: Good insight present (Psych) Medications Administered Discontinued Medications Generic Name Dose Route Start Last Admin Trade Name Freq PRN Reason Stop Dose Admin Hydromorphone HCl 0.5 mg 10/01/22 10:31 10/01/22 10:51 Hydromorphone Hcl 0.5 Mg/0.5 Ml Syringe IVPUSH 10/01/22 10:32 0.5 mg ONCE ONE Administration Protocol Albumin Human 100 mls @ 100 mls/hr 10/01/22 10:31 10/01/22 12:18 Kedbumin 25 % IV 10/01/22 11:30 Infused ONCE ONE Infusion Ibuprofen 400 mg 10/01/22 14:01 10/01/22 14:31 Ibuprofen 400 Mg Tablet PO 10/01/22 14:02 400 mg ONCE ONE Administration Insulin Glargine 20 unit 10/01/22 09:27 10/01/22 10:04 Insulin Glargine,Hum.Rec.Anlog 100 Unit/Ml 10 Ml Vial SUBCUT 10/01/22 09:28 20 unit ONCE ONE Administration Insulin Human Regular 5 unit 10/01/22 09:27 10/01/22 10:04 Insulin Regular, Human 100 Unit/Ml 3 Ml Vial IVPUSH 10/01/22 09:28 5 unit ONCE ONE Administration Insulin Human Regular 5 unit 10/01/22 11:01 10/01/22 12:16 Insulin Regular, Human 100 Unit/Ml 3 Ml Vial IVPUSH 10/01/22 11:02 5 unit ONCE ONE Administration Insulin Human Regular 5 unit 10/01/22 12:22 10/01/22 13:36 Insulin Regular, Human 100 Unit/Ml 3 Ml Vial IVPUSH 10/01/22 12:23 5 unit ONCE ONE Administration Lactulose 20 gm 10/01/22 10:31 10/01/22 10:52 Lactulose 20 Gm/30 Ml Solution PO 10/01/22 10:32 20 gm ONCE ONE Administration Lidocaine HCl 5 ml 10/01/22 13:23 10/01/22 13:23 Lidocaine Hcl 1 % Mpf 5 Ml Vial SUBCUT 10/01/22 13:24 5 ml ONCE ONE Administration Medical Decision Making Medical Decision Making [facility] Narrative: Patient is a 57 year old assigned female at with a history of cirrhosis with secondary ascites requiring paracentesis and DM, presenting to the emergency department today with an elevated blood sugar. Patient's physical exam showed a distended and fluid filled abdomen per her baseline. Patient's blood work showed a sodium of 134, a potassium of 5.4. a glucose of 611, a bilirubin of 2.2,. an AST of 45, alk phos of 192, ammonia of 61, and an albumin of 2.5. Patient's lab work is chronic for the patient and consistent with uncontrolled diabetes and liver cirrhosis with a large amount of ascites. Patient was given her normal lantus dose, 15 units of regular insulin, albumin, and lactulose. Patient's blood sugar corrected to 314. IR performed a paracentesis and removed >5L of fluid. I explained my physical exam findings as well as all test results to the patient. I answered all questions asked by the patient. I stressed the importance of the patient taking her medication as prescribed. I stressed the importance of the patient following up with her primary care provider. I stressed the importance of the patient returning to the emergency department immediately if her symptoms were to worsen or if she were to develop any dizziness, shortness of breath, difficulty breathing, chest pain, blurry vision, loss of vision, nausea, vomiting, abdominal pain, fever, chills, back pain, or any other complaints. Patient verbalized agreement and understanding with this treatment plan and discharge. Differential Diagnosis Differential Diagnoses: The differential diagnosis associated with the presentation includes ascites, cirrhosis, DM Lab Data [facility] Lab Attestation statement: I reviewed the patient's lab results. 10/01/22 09:22 10/01/22 09:22 Labs: Lab Results 10/01/22 10/01/22 10/01/22 Range/Units 09:13 09:22 09:22 WBC 6.5 (4.8-10.8) X10*3/uL RBC 3.91 L (4.20-5.50) X10*6/uL Hgb 11.3 L (12.0-16.0) g/dl Hct 34.8 L (37.0-47.0) % MCV 89.0 (80.0-98.0) fL MCH 28.9 (27.0-33.0) pg MCHC 32.5 (31.0-35.0) g/dl RDW 16.8 H (11.0-16.0) % Plt Count 124 L (160-400) X10*3/uL MPV 10.3 (9.4-12.3) fL Immature Gran % (Auto) 0.2 (0.0-0.4) % Neut % (Auto) 84.2 H (45-73) % Lymph % (Auto) 9.9 L (20-40) % [place] % (Auto) 5.1 (2-11) % Eos % (Auto) 0.0 (0-4) % Baso % (Auto) 0.6 (0-2) % Lymph # (Auto) 0.6 L (1.2-4.9) X10*3/uL [place] # (Auto) 0.3 (0.1-1.2) X10*3/uL Eos # (Auto) 0.0 (0.0-0.4) X10*3/uL Baso # (Auto) 0.0 (0.0-0.2) X10*3/uL Abs Immat Gran (auto) 0.01 (0.00-0.03) X10*3/uL Absolute Neuts (auto) 5.4 (2.0-8.3) x10*3/uL Absolute Nucleated RBC 0.000 (0.0-0.012) X10*3/uL Nucleated RBC % (auto) 0.0 (0.0-0.2) /100WBC PT 14.6 H (10.0-13.1) SEC INR 1.3 H (0.9-1.1) APTT 27.5 (26.0-36.4) SEC VBG pH (7.32-7.43) VBG pCO2 mmHg VBG pO2 mmHg VBG HCO3 (22-26) mmol/L VBG O2 Saturation % VBG Base Excess mmol/L Sodium (135-145) mmol/L Potassium (3.3-5.1) mmol/L Chloride (96-108) mmol/L Carbon Dioxide (22-29) mmol/L Anion Gap (12-20) BUN (9-16) mg/dL Creatinine (0.5-1.4) mg/dL Estim Creat Clear Calc Estimated GFR POC Glucose 521 H* (60-115) mg/dL Random Glucose (60-115) mg/dL Calcium (8.4-10.2) mg/dL Magnesium (1.6-2.6) mg/dL Total Bilirubin (0.0-1.0) mg/dL AST (5-31) U/L ALT (0-31) U/L Alkaline Phosphatase (39-117) U/L Ammonia (13-55) umol/L Total Protein (6.5-8.0) g/dL Albumin (3.5-5.0) g/dL 10/01/22 10/01/22 10/01/22 Range/Units 09:22 09:22 09:25 WBC (4.8-10.8) X10*3/uL RBC (4.20-5.50) X10*6/uL Hgb (12.0-16.0) g/dl Hct (37.0-47.0) % MCV (80.0-98.0) fL MCH (27.0-33.0) pg MCHC (31.0-35.0) g/dl RDW (11.0-16.0) % Plt Count (160-400) X10*3/uL MPV (9.4-12.3) fL Immature Gran % (Auto) (0.0-0.4) % Neut % (Auto) (45-73) % Lymph % (Auto) (20-40) % [place] % (Auto) (2-11) % Eos % (Auto) (0-4) % Baso % (Auto) (0-2) % Lymph # (Auto) (1.2-4.9) X10*3/uL [place] # (Auto) (0.1-1.2) X10*3/uL Eos # (Auto) (0.0-0.4) X10*3/uL Baso # (Auto) (0.0-0.2) X10*3/uL Abs Immat Gran (auto) (0.00-0.03) X10*3/uL Absolute Neuts (auto) (2.0-8.3) x10*3/uL Absolute Nucleated RBC (0.0-0.012) X10*3/uL Nucleated RBC % (auto) (0.0-0.2) /100WBC PT (10.0-13.1) SEC INR (0.9-1.1) APTT (26.0-36.4) SEC VBG pH 7.56 H (7.32-7.43) VBG pCO2 34 mmHg VBG pO2 82 mmHg VBG HCO3 31 H (22-26) mmol/L VBG O2 Saturation 97.0 % VBG Base Excess 9.2 mmol/L Sodium 134 L (135-145) mmol/L Potassium 5.2 H D (3.3-5.1) mmol/L Chloride 99 (96-108) mmol/L Carbon Dioxide 24 (22-29) mmol/L Anion Gap 16 (12-20) BUN 16 (9-16) mg/dL Creatinine 1.12 (0.5-1.4) mg/dL Estim Creat Clear Calc 48.6 Estimated GFR 50 POC Glucose (60-115) mg/dL Random Glucose 611 H* (60-115) mg/dL Calcium 8.4 (8.4-10.2) mg/dL Magnesium 1.7 (1.6-2.6) mg/dL Total Bilirubin 2.2 H (0.0-1.0) mg/dL AST 45 H (5-31) U/L ALT 24 (0-31) U/L Alkaline Phosphatase 192 H (39-117) U/L Ammonia 61 H (13-55) umol/L Total Protein 6.6 (6.5-8.0) g/dL Albumin 2.5 L (3.5-5.0) g/dL 10/01/22 10/01/22 10/01/22 Range/Units 10:57 12:16 13:31 WBC (4.8-10.8) X10*3/uL RBC (4.20-5.50) X10*6/uL Hgb (12.0-16.0) g/dl Hct (37.0-47.0) % MCV (80.0-98.0) fL MCH (27.0-33.0) pg MCHC (31.0-35.0) g/dl RDW (11.0-16.0) % Plt Count (160-400) X10*3/uL MPV (9.4-12.3) fL Immature Gran % (Auto) (0.0-0.4) % Neut % (Auto) (45-73) % Lymph % (Auto) (20-40) % [place] % (Auto) (2-11) % Eos % (Auto) (0-4) % Baso % (Auto) (0-2) % Lymph # (Auto) (1.2-4.9) X10*3/uL [place] # (Auto) (0.1-1.2) X10*3/uL Eos # (Auto) (0.0-0.4) X10*3/uL Baso # (Auto) (0.0-0.2) X10*3/uL Abs Immat Gran (auto) (0.00-0.03) X10*3/uL Absolute Neuts (auto) (2.0-8.3) x10*3/uL Absolute Nucleated RBC (0.0-0.012) X10*3/uL Nucleated RBC % (auto) (0.0-0.2) /100WBC PT (10.0-13.1) SEC INR (0.9-1.1) APTT (26.0-36.4) SEC VBG pH (7.32-7.43) VBG pCO2 mmHg VBG pO2 mmHg VBG HCO3 (22-26) mmol/L VBG O2 Saturation % VBG Base Excess mmol/L Sodium (135-145) mmol/L Potassium (3.3-5.1) mmol/L Chloride (96-108) mmol/L Carbon Dioxide (22-29) mmol/L Anion Gap (12-20) BUN (9-16) mg/dL Creatinine (0.5-1.4) mg/dL Estim Creat Clear Calc Estimated GFR POC Glucose 514 H* 432 H* 359 H* (60-115) mg/dL Random Glucose (60-115) mg/dL Calcium (8.4-10.2) mg/dL Magnesium (1.6-2.6) mg/dL Total Bilirubin (0.0-1.0) mg/dL AST (5-31) U/L ALT (0-31) U/L Alkaline Phosphatase (39-117) U/L Ammonia (13-55) umol/L Total Protein (6.5-8.0) g/dL Albumin (3.5-5.0) g/dL 10/01/22 Range/Units 14:26 WBC (4.8-10.8) X10*3/uL RBC (4.20-5.50) X10*6/uL Hgb (12.0-16.0) g/dl Hct (37.0-47.0) % MCV (80.0-98.0) fL MCH (27.0-33.0) pg MCHC (31.0-35.0) g/dl RDW (11.0-16.0) % Plt Count (160-400) X10*3/uL MPV (9.4-12.3) fL Immature Gran % (Auto) (0.0-0.4) % Neut % (Auto) (45-73) % Lymph % (Auto) (20-40) % [place] % (Auto) (2-11) % Eos % (Auto) (0-4) % Baso % (Auto) (0-2) % Lymph # (Auto) (1.2-4.9) X10*3/uL [place] # (Auto) (0.1-1.2) X10*3/uL Eos # (Auto) (0.0-0.4) X10*3/uL Baso # (Auto) (0.0-0.2) X10*3/uL Abs Immat Gran (auto) (0.00-0.03) X10*3/uL Absolute Neuts (auto) (2.0-8.3) x10*3/uL Absolute Nucleated RBC (0.0-0.012) X10*3/uL Nucleated RBC % (auto) (0.0-0.2) /100WBC PT (10.0-13.1) SEC INR (0.9-1.1) APTT (26.0-36.4) SEC VBG pH (7.32-7.43) VBG pCO2 mmHg VBG pO2 mmHg VBG HCO3 (22-26) mmol/L VBG O2 Saturation % VBG Base Excess mmol/L Sodium (135-145) mmol/L Potassium (3.3-5.1) mmol/L Chloride (96-108) mmol/L Carbon Dioxide (22-29) mmol/L Anion Gap (12-20) BUN (9-16) mg/dL Creatinine (0.5-1.4) mg/dL Estim Creat Clear Calc Estimated GFR POC Glucose 314 H (60-115) mg/dL Random Glucose (60-115) mg/dL Calcium (8.4-10.2) mg/dL Magnesium (1.6-2.6) mg/dL Total Bilirubin (0.0-1.0) mg/dL AST (5-31) U/L ALT (0-31) U/L Alkaline Phosphatase (39-117) U/L Ammonia (13-55) umol/L Total Protein (6.5-8.0) g/dL Albumin (3.5-5.0) g/dL Chronic Conditions Patient?s care impacted by: Diabetes and Other (cirrhosis with ascites) Critical Care Time Critical Care Time Critical Care Time: Yes Total Critical Care Time: 45 Attestation: I spent 45 minutes of Critical Care Time with this patient. This does not include time spent on separately reported billable procedures. Discharge Plan Discharge Clinical Impression: Hyperglycemia, Ascites Patient Disposition: Home, Self-Care Instructions: Ascites (ED), Diabetic Hyperglycemia (ED), Paracentesis (DC) Additional Instructions: Follow up with your primary care provider. Return to the emergency department immediately if your symptoms worsen or if you develop any dizziness, shortness of breath, difficulty breathing, chest pain, blurry vision, loss of vision, nausea, vomiting, abdominal pain, fever, chills, back pain, or any other complaints. Prescriptions: No Action insulin glargine [Lantus Solostar U-100 Insulin] 100 unit/mL (3 mL) insulin pen 20 unit subcut DAILY carvedilol 3.125 mg tablet 1 tab PO BID bisacodyl [Laxative (bisacodyl)] 5 mg tablet,delayed release (DR/EC) 5 mg PO DAILY omeprazole 40 mg capsule,delayed release(DR/EC) 1 cap PO BID nystatin 100,000 unit/gram powder 1 applic topical BID lactulose 10 gram/15 mL solution 45 ml PO DAILY pregabalin 25 mg capsule 1 cap PO BID spironolactone [Aldactone] 50 mg tablet 50 mg PO BID Qty: 60 0RF torsemide 20 mg tablet 20 mg PO DAILY Qty: 30 0RF oxycodone 5 mg tablet 5 mg PO Q8H PRN (Reason: pain) Qty: 10 0RF Rx Instructions: Partial Fill upon patient request. midodrine 10 mg Tablet 10 mg PO TIDWM Qty: 90 0RF Referrals: Eden Han MD [Primary Care Provider] - Interventions: ED Discharge Assessment Last Done: 10/01/22 14:37 Discharge Date/Time: 10/01/22 14:38 Print Language: Greek
[2022-10-01 09:14] VITALS: BP 125/79; PULSE 95; RESP 20; TEMP 36.9; O2SAT 96; BMI 22.1
[2022-10-01 09:17] LABS: Glucose, Whole Blood 521 mg/dL (60-115)
[2022-10-01 09:26] LABS: MANUAL DIFF FLAG NO
[2022-10-01 09:29] LABS: Basophils Percent Auto 0.6 % (0-2); Hematocrit 34.8 % (37.0-47.0); Hemoglobin 11.3 g/dl (12.0-16.0); Imm Gran Abs Auto 0.01 X10*3/uL (0.00-0.03); Imm Gran Pct Auto 0.2 % (0.0-0.4); Lymphocytes Absolute Auto 0.6 X10*3/uL (1.2-4.9); Lymphocytes Percent Auto 9.9 % (20-40); Mean Corpuscular HGB Conc 32.5 g/dl (31.0-35.0); Mean Corpuscular Hemoglobin 28.9 pg (27.0-33.0); Mean Platelet Volume 10.3 fL (9.4-12.3); Monocytes Absolute Auto 0.3 X10*3/uL (0.1-1.2); Monocytes Percent Auto 5.1 % (2-11); Neutrophils Absolute Auto 5.4 x10*3/uL (2.0-8.3); Neutrophils Percent Auto 84.2 % (45-73); Platelet Count 124 X10*3/uL (160-400); Red Blood Count 3.91 X10*6/uL (4.20-5.50); Red Cell Distribution Width 16.8 % (11.0-16.0); White Blood Count 6.5 X10*3/uL (4.8-10.8)
[2022-10-01 09:31] LABS: VBG Base Excess 9.2 mmol/L; VBG HCO3 31 mmol/L (22-26); VBG pCO2 34 mmHg; VBG pH 7.56 (7.32-7.43); VBG pO2 82 mmHg
[2022-10-01 09:31] LABS: Venous Blood Gas Refer to POC result
[2022-10-01 09:35] LABS: INTERNATIONAL NORM RATIO 1.3 (0.9-1.1); Prothrombin Time 14.6 SEC (10.0-13.1)
[2022-10-01 09:38] LABS: Partial Thromboplastin Time 27.5 SEC (26.0-36.4)
[2022-10-01 09:46] LABS: Ammonia 61 umol/L (13-55)
[2022-10-01 09:56] LABS: Alanine Aminotransferase 24 U/L (0-31); Albumin Level 2.5 g/dL (3.5-5.0); Alkaline Phosphatase 192 U/L (39-117); Anion Gap 16 (12-20); Aspartate Amino Transferase 45 U/L (5-31); Bilirubin Total 2.2 mg/dL (0.0-1.0); Blood Urea Nitrogen 16 mg/dL (9-16); Calcium 8.4 mg/dL (8.4-10.2); Carbon Dioxide 24 mmol/L (22-29); Chloride 99 mmol/L (96-108); Creatinine Clr Calc Pharmacy 48.6; Estimated Glomerular Filt Rate 50; Glucose Random 611 mg/dL (60-115); Magnesium 1.7 mg/dL (1.6-2.6); Potassium 5.2 mmol/L (3.3-5.1); Sodium 134 mmol/L (135-145); Total Protein 6.6 g/dL (6.5-8.0)
[2022-10-01] MEDS: Insulin Glargine,Hum.rec.anlog 100 UNIT/ML 10 ML VIAL 20 UNIT SUBCUT (10:04)
[2022-10-01] MEDS: Insulin Regular, Human 100 UNIT/ML 3 ML VIAL IVPUSH ×3 (10:04→13:36)
[2022-10-01 10:41] VITALS: BP 95/66; PULSE 108; RESP 18; O2SAT 97
[2022-10-01 10:51] VITALS: RESP 20
[2022-10-01] MEDS: Albumin Human 25 % 100 ML IV (10:51)
[2022-10-01] MEDS: HYDROmorphone HCl 0.5 MG/0.5 ML SYRINGE IVPUSH (10:51)
[2022-10-01] MEDS: Lactulose 20 GM/30 ML SOLUTION PO (10:52)
[2022-10-01 11:00] LABS: Glucose, Whole Blood 514 mg/dL (60-115)
[2022-10-01 12:19] LABS: Glucose, Whole Blood 432 mg/dL (60-115)
--- NOTE | 2022-10-01 12:45 | PC.NURSE ---
pt off unit to u/s for paracentesis
[2022-10-01] MEDS: Lidocaine HCl 1 % MPF 5 ML VIAL SUBCUT (13:23)
[2022-10-01 13:32] VITALS: BP 109/63; PULSE 89; RESP 16; TEMP 36.8; O2SAT 97
[2022-10-01 13:36] LABS: Glucose, Whole Blood 359 mg/dL (60-115)
[2022-10-01 14:29] LABS: Glucose, Whole Blood 314 mg/dL (60-115)
[2022-10-01] MEDS: Ibuprofen 400 MG TABLET PO (14:31)
== END 2022-10-01 14:38 | disposition home or self-care (01) ==
PROVIDERS: Physician Assistant Medical; Emergency Provider Emergency Medicine; PCP Internal Medicine
DX: R18.8 Other ascites (principal); E11.65 Type 2 diabetes mellitus with hyperglycemia; K74.60 Unspecified cirrhosis of liver; Z79.4 Long term (current) use of insulin
CPT/HCPCS: 36415; 49083; 80053; 82140; 82803; 82947; 83735; 85025; 85610; 85730; 96365; 96375; 96376; 99284; J1170; P9047

== ENCOUNTER 2022-10-08 15:41 | Inpatient (IN) | payer OTHER, SELFPAY ==
[2022-10-08] VITALS (17 sets, daily range): BP systolic 74–133; BP diastolic 38–68; PULSE 40–129; RESP 14–40; TEMP 32.7–36.1; O2SAT 96–100; BMI 27.3
--- NOTE | ~2022-10-08 | XR_ITS ---
EXAMINATION: XR CHEST CLINICAL INFORMATION: Central line placement COMPARISON: Chest x-ray 08/17/2022 TECHNIQUE: Frontal portable view of the chest was obtained. 1700 hours FINDINGS: Tubes and lines: 1. Endotracheal tube catheter 1.5 cm above the momo. 2. Left IJ catheter tip in superior vena cava cavoatrial junction. 3. Right IJ catheter tip at the level the diaphragm projecting over the right atrium. 4. Enteric catheter tip in the stomach. Sidehole the level the diaphragm. Lung volume low. No pulmonary vascular congestion. No pleural effusion or pneumothorax. Cardiac mediastinal contours are normal. Heart size is normal. XR/XR chest 1V IMPRESSION: 1. Endotracheal tube catheter 1.5 cm above the momo. 2. Left IJ catheter tip in superior vena cava cavoatrial junction. 3. Right IJ catheter tip at the level the diaphragm projecting over the right atrium. 4. Enteric catheter tip in the stomach. Sidehole the level the diaphragm. 5. No pneumothorax. 6. Normal aeration of lungs.
--- NOTE | ~2022-10-08 | CT_ITS ---
EXAMINATION: CT CHEST, ABDOMEN AND PELVIS WITHOUT CONTRAST. CLINICAL INFORMATION: septic . COMPARISON: 08/20/2022. TECHNIQUE: Multidetector volumetric imaging was performed from the thoracic inlet through the pubic symphysis without intravenous contrast. Sagittal and coronal reformatted images were obtained on the technologist workstation. This CT examination was performed using dose optimization techniques as appropriate, variously including the following: *Automated exposure control *Adjustment of mA and/or kV according to patient size (this includes techniques or standardized protocols for targeted exams where dose is matched to indication/reason for exam; i.e. extremities or head) *Use of iterative reconstruction technique DLP: 722 mGy-cm FINDINGS: CHEST: Lungs: Atelectatic changes at the dependent left base no dense consolidation. Central airways grossly unremarkable. Note the endotracheal tube tip is at the level the momo directed is towards the right mainstem bronchus Mediastinum: Vascular calcification seen in the aorta. No bulky hilar or mediastinal adenopathy. Central venous catheters are in place overlying the cavoatrial junction and right atrium. Coronary Artery Calcification: Present Pericardium/Pleura: Tiny pericardial effusion. No significant pleural effusion Chest Wall/Axilla: Unremarkable. ABDOMEN/PELVIS: Peritoneal Space:Ascites is again seen. There is however new free air somewhat we with loculated air bubbles seen anteriorly Liver, Gallbladder, Biliary Tree: Nodular cirrhotic liver. No discrete mass appreciated on this noncontrast study. Gallstones within the gallbladder Pancreas: Unremarkable. Spleen: Unremarkable. Adrenal Glands: Unremarkable. Kidneys and Ureters: The kidneys are normal in size, shape, and attenuation. No hydronephrosis, hydroureter, or calculi seen. No perinephric stranding. Bladder: Decompressed with Lang catheter Gastrointestinal Tract: There is scattered colonic diverticulosis. There is diffuse colonic wall thickening extending from the cecum to the sigmoid colon. Etiology of this is uncertain. Colon had a more normal appearance on the 08/20/2022 study. Infectious or inflammatory colitis would be suspected with this distribution. The colon is a likely source of this free air there is irregularity seen in the region of the hepatic flexure more than I would expect just for a focal fold. I do not appreciate any obstructive changes to the small bowel. Nasogastric tube tip in the fundus of the stomach Abdominal Wall: No significant hernia is appreciated. Lymphovascular Structures: Vascular calcification within the aorta iliac system. Pelvic Viscera: Fat-containing right pelvic dermoid cyst again noted with a coarsened calcification. This measures approximately 4.6 x 4.0 cm in size. Osseus Structures: Multilevel degenerative changes in the spine CT/CT abdomen pelvis wo IV con IMPRESSION: 1. Diffuse colonic wall thickening extending from the cecum to the sigmoid colon. Etiology of this is uncertain. Infectious or inflammatory colitis would be suspected with this distribution. 2. There is new pneumoperitoneum with loculated air bubbles seen anteriorly. The colon is the likely source of this free air. There is irregularity seen in the region of the hepatic flexure more than I would expect just for a focal fold and this area could be evaluated further. 3. Cirrhotic liver with ascites again noted. 4. Endotracheal tube tip is at the level the momo directed towards the right mainstem bronchus. This should be repositioned. 5. Chronic appearing and postoperative changes otherwise as described. This critical result was discussed with Dr. Lopez at 10/08/2022 6:48 PM and it was ascertained that the content and urgency of the report was understood at the time of direct communication.
--- NOTE | ~2022-10-08 | CT_ITS ---
EXAMINATION: CT HEAD WITHOUT CONTRAST CLINICAL INFORMATION: Unresponsive COMPARISON: Head CT 08/17/2022 TECHNIQUE: Imaging was performed from the skull base to vertex without intravenous administration of contrast. This CT examination was performed using dose optimization techniques as appropriate, variously including the following: *Automated exposure control *Adjustment of mA and/or kV according to patient size (this includes techniques or standardized protocols for targeted exams where dose is matched to indication/reason for exam; i.e. extremities or head) *Use of iterative reconstruction technique Total exam dose length product: 533 mGy-cm FINDINGS: No intra or extra-axial fluid collection, hemorrhage, or mass. No ventriculomegaly. No midline shift or herniation. Basal cisterns are patent. Levy-white matter differentiation is maintained. No territorial encephalomalacia. No significant volume loss. Redemonstrated mild symmetric hypoattenuation in the posterior periventricular white matter bilaterally, nonspecific. No calvarial fracture or soft tissue abnormality. Mild mucosal thickening and secretions in the right sphenoid sinus. Mastoid air cells normally aerated. CT/CT head/brain wo IV con IMPRESSION: No acute intracranial pathology.
--- NOTE | 2022-10-08 11:24 | ECG_ITS ---
Test Reason : cardiac arrest Blood Pressure : / mmHG Vent. Rate : 091 BPM Atrial Rate : 091 BPM P-R Int : 128 ms QRS Dur : 084 ms QT Int : 430 ms P-R-T Axes : 048 053 083 degrees QTc Int : 528 ms Normal sinus rhythm Nonspecific ST abnormality Prolonged QT Abnormal ECG When compared with ECG of 17-AUG-2022 17:06, QT has lengthened Referred By: Latrice Lopez Electronically Signed By:MAHSA BAIN
--- NOTE | 2022-10-08 16:13 | PC.NURSE ---
PER MD ORDER: start pt at max dose of nor epi. 1mcg/kg/min.
[2022-10-08 17:00] LABS: Glucose, Whole Blood 377 mg/dL (60-115)
[2022-10-08 17:02] LABS: Ammonia 254 umol/L (13-55)
[2022-10-08 17:05] LABS: Hematocrit 43.6 % (37.0-47.0); Hemoglobin 12.2 g/dl (12.0-16.0); Mean Corpuscular Hemoglobin 29.3 pg (27.0-33.0); Mean Corpuscular Volume 104.6 fL (80.0-98.0); Mean Platelet Volume 11.6 fL (9.4-12.3); Platelet Count 143 X10*3/uL (160-400); Red Blood Count 4.17 X10*6/uL (4.20-5.50); Red Cell Distribution Width 19.2 % (11.0-16.0)
[2022-10-08 17:08] LABS: B Type Natriuretic Peptide 227 pg/mL (<100)
[2022-10-08 17:11] LABS: NRBC Pct Auto 3.9 /100WBC (0.0-0.2); WBC ABN SCTR FOR CBC 1
[2022-10-08 17:12] LABS: White Blood Count 8.2 X10*3/uL (4.8-10.8)
[2022-10-08 17:18] LABS: Lactic Acid 22.5 mmol/L (0.5-2.0)
[2022-10-08 17:19] LABS: Troponin-I High Sensitivity 74.1 ng/L (<3.5-17.0)
[2022-10-08 17:25] LABS: Alanine Aminotransferase 116 U/L (0-31); Albumin Level 1.6 g/dL (3.5-5.0); Alkaline Phosphatase 96 U/L (39-117); Aspartate Amino Transferase 341 U/L (5-31); Bilirubin Total 2.2 mg/dL (0.0-1.0); Blood Urea Nitrogen 47 mg/dL (9-16); C Reactive Protein 0.83 mg/dL (< or = 0.50); Carbon Dioxide < 5 mmol/L (22-29); Chloride 121 mmol/L (96-108); Creatinine Clr Calc Pharmacy 22.4; Estimated Glomerular Filt Rate 22; Ethanol < 10 mg/dL; Glucose Random 351 mg/dL (60-115); Lipase 58 U/L (8-78); Potassium 4.5 mmol/L (3.3-5.1); Sodium 156 mmol/L (135-145); Total Protein 4.4 g/dL (6.5-8.0)
[2022-10-08 17:31] LABS: Lymphocytes Absolute Manual 1.9 X10*3/uL (1.2-4.9); Lymphocytes Percent Manual 23 % (20-40); Metamyelocytes Absolute 0.4 X10*3/uL; Metamyelocytes Percent 5 %; Monocytes Absolute Manual 0.7 X10*3/uL (0.1-1.2); Monocytes Percent Manual 8 % (2-11); Myelocytes Absolute 0.1 X10*/uL; Myelocytes Percent 1 %; Neutrophils Absolute Manual 5.2 X10*3/uL (2.0-8.3); Neutrophils Percent Manual 47 % (45-73); Nucleated Red Blood Cells 4 /100WBC (0-0)
[2022-10-08 17:32] LABS: Macrocytosis 2+ (15-30) /OIF; RBC Morphology NOTED
[2022-10-08 17:33] LABS: Polychromasia 3+ (>5) /OIF
[2022-10-08 17:34] LABS: Large Platelet PRESENT; Platelet Estimate NORMAL (NORMAL); Platelet Morphology Comment NOTED
[2022-10-08 17:41] LABS: INTERNATIONAL NORM RATIO 2.8 (0.9-1.1); Prothrombin Time 33.7 SEC (10.0-13.1)
[2022-10-08 17:46] LABS: ABG Refer to POC result
[2022-10-08 18:10] LABS: ABG Base Excess -27.2 mmol/L; ABG HCO3 4 mmol/L (22-26); ABG pCO2 19 mmHg (32-45); ABG pO2 204 mmHg (83-108)
[2022-10-08] MEDS: Piperacillin Sodium/Tazobactam 3.375 GM in 0.9 % Sodium Chloride 50 ML IV (18:16)
[2022-10-08] MEDS: Norepinephrine Bitartrate/D5W 8 MG/250 ML PLAST..BAG 119.06 MG IV ×3 (18:17→22:02)
--- NOTE | 2022-10-08 18:17 | ED.GENADULT ---
HPI - General Adult General Chief complaint: Altered Mental Status Stated complaint: ams Time Seen by Provider: 10/08/22 16:00 Source: EMS Mode of arrival: EMS History of Present Illness HPI narrative: Patient comes to the emergency room unresponsive by ambulance. According to EMS, the last time that the patient was seen well was yesterday. Today, 20-30 minutes prior to arrival, he was found by family unresponsive. When patient arrived to the emergency room, blood pressure was 52/30, heart rate in the mid 80s. EMS states that they pushed 1 mg of atropine due to bradycardia. On arrival to the ED, patient was being ventilated manually. Rectal temperature 90 degrees F Related Data Home Medications Medication Instructions Recorded Confirmed insulin glargine 100 unit/mL (3 20 unit subcut DAILY 07/14/22 09/18/22 mL) subcutaneous pen (Lantus Solostar U-100 Insulin) bisacodyl 5 mg tablet,delayed 5 mg PO DAILY 09/18/22 09/18/22 release (Laxative (bisacodyl)) carvedilol 3.125 mg tablet 1 tab PO BID 09/18/22 09/18/22 lactulose 10 gram/15 mL oral 45 ml PO DAILY 09/18/22 09/18/22 solution nystatin 100,000 unit/gram topical 1 applic topical BID 09/18/22 09/18/22 powder omeprazole 40 mg capsule,delayed 1 cap PO BID 09/18/22 09/18/22 release pregabalin 25 mg capsule 1 cap PO BID 09/18/22 09/18/22 Previous Rx's Medication Instructions Recorded midodrine 10 mg tablet 10 mg PO TIDWM #90 tabs 08/22/22 spironolactone 50 mg tablet 50 mg PO BID #60 tabs 09/20/22 (Aldactone) torsemide 20 mg tablet 20 mg PO DAILY #30 tabs 09/21/22 oxycodone 5 mg tablet 5 mg PO Q8H PRN pain #10 tabs 09/23/22 Allergies Allergy/AdvReac Type Severity Reaction Status Date / Time No Known Allergies Allergy Verified 09/17/22 20:25 [No Known Allergies*] Review of Systems Review of Systems: Yes Unobtainable due to mental condition PMFSH Past Medical History Medical History Ascites Cirrhosis Cirrhosis Diabetes (~01/31/21) Diabetes mellitus with hyperglycemia Diabetes type 2, controlled Gallstones Hepatic failure due to alcoholism HTN (hypertension) Kidney, perinephric abscess Liver cirrhosis Portal hypertension SBP (spontaneous bacterial peritonitis) UTI (urinary tract infection) UTI (urinary tract infection) UTI due to extended-spectrum beta lactamase (ESBL) producing Escherichia coli Varices of other sites Family History Family History Mother No problems noted. Father No problems noted. Social History Social History Household Members: Children Household Members Other:: Patient's son Housing: House Do you presently have visiting nurse or other home services: No Alcohol intake: unknown Patient Tobacco Use Status: Never used Tobacco Smoked in Last 30 Days: Yes e-Cigarette/Vaping Use: Never Used Second Hand Smoke Exposure: No Advance Directives: Yes Advance Directives on File: Yes Advance Directives Date on File: 06/15/21 Patient : No service: No Current occupational status: unemployed and disabled Cognitive needs: No Hearing needs: No Vision needs: No Physical Exam ED Vital Signs: Vital Signs - 24 hr 10/08/22 16:09 10/08/22 18:00 10/08/22 18:17 Temperature 92.3 F L Pulse Rate 103 H 104 H Respiratory Rate 14 Blood Pressure 110/48 L 104/41 L Pulse Oximetry 96 Oxygen Delivery Method Mechanical Ventilation Fraction of Inspired Oxygen 30 40 10/08/22 16:56 10/08/22 18:37 10/08/22 16:10 Temperature 92.5 F L 90.8 F L Pulse Rate 100 109 H Respiratory Rate 30 H Blood Pressure 104/68 82/38 L Pulse Oximetry 100 97 Oxygen Delivery Method Mechanical Ventilation Fraction of Inspired Oxygen 50 10/08/22 19:00 10/08/22 20:00 10/08/22 20:04 Temperature 93.9 F L Pulse Rate 104 H 122 H Respiratory Rate 18 Blood Pressure 98/43 L 115/68 Pulse Oximetry 98 Oxygen Delivery Method Mechanical Ventilation Fraction of Inspired Oxygen 50 BMI result Body Mass Index 27.3 Const Other: Appearance: Unresponsive very ill-appearing Eyes: Pupils equal, round, minimally reactive to light ENT: Dry oral mucosa, no gag reflex present Neck: Normal inspection. Neck supple. No lymph nodes noted. No crepitus CVS: Normal heart rate and rhythm. Pulses are very weak Respiratory: Patient has agonal breathing Abdomen: Soft , somewhat distended Skin: Cold to touch Extremities: No lower extremity edema. No Lacerations. No Rash Neuro: Unresponsive Psych: Unresponsive Course Course Course Narrative: -on arrival to the emergency room, patient was unresponsive, agonal breathing. I intubated the patient on arrival. -patient has no gag reflex, patient was intubated without any medication -eventually patient started clenching once the ET tube was sent, she was given etomidate and rocuronium and propofol. -patient is a very difficult stick. Patient came with an IO, fluids her bili running through it. -a central line was placed on the right side. The procedure itself seem to be going according to plan. However, I was informed by the patient's nurse that when they were drawing blood, they could see pulsating blood filling the tubes. Therefore, I inserted a central line on the left side. A chest x-ray was done, seems that both central lines are in correct place. -between EMS and the ED, patient received 3 L of normal saline, blood pressure did not improve much, Levophed was started peripherally while I was inserting the central lines. -patient maxed out on Levophed, patient was started on epinephrine. -patient was also given Zosyn once the central line placement was confirmed -CT scan of head, chest abdomen and pelvis was done. CT scan of the abdomen that is very concerning for colonic perforation -discussed the patient with Dr. Ash, who evaluated the patient at bedside. The patient is very sick, unlikely to survive surgery. Without surgery, unfortunately the patient will likely -I attempted multiple times calling the patient's who is listed as her primary contact. I was unable to reach the patient's sister -I discussed the patient with Dr. Erickson and my conversation with Dr. Ash. Dr. Erickson and I agree that given the patient's condition, any resuscitation efforts would be futile, and therefore we are making her do not resuscitate code status. Patient is already intubated. Patient will be going to the unit. If patient's family call, they will be informed about the severity of the patient's condition. After a prolonged discussion with my colleagues, the best course of action is to make the patient comfort measures only. We will be waiting for the family to report to the ED or ICU. As mentioned above, in the meantime, patient is intermittent, do not resuscitate Medications Administered Generic Name Dose Route Start Last Admin Trade Name Freq PRN Reason Stop Dose Admin Heparin Sodium (Porcine) 5,000 unit 10/08/22 21:00 10/08/22 20:27 Heparin Sodium,Porcine 5,000 Unit/Ml Vial SUBCUT 5,000 unit TID ODALYS Administration Norepinephrine Bitartrate 8 mg in 250 mls @ 0 mls/hr 10/08/22 16:15 10/08/22 20:13 Levophed IV 1 mcg/kg/min .Q0M ODALYS 119.06 mls/hr Administration Protocol Per Protocol Sodium Bicarbonate 150 meq/ 1,000 mls @ 100 mls/hr 10/08/22 18:15 10/08/22 18:45 Dextrose IV 100 mls/hr .Q10H ODALYS Administration Epinephrine 5 mg/ Dextrose 255 mls @ 0 mls/hr 10/08/22 18:45 10/08/22 19:00 IVCONT 0.4 mcg/kg/min .Q0M ODALYS 77.72 mls/hr Administration Protocol Per Protocol Discontinued Medications Generic Name Dose Route Start Last Admin Trade Name Freq PRN Reason Stop Dose Admin Propofol 1,000 mg in 100 mls @ 0 mls/hr 10/08/22 16:42 10/08/22 18:32 Diprivan IVCONT 10/08/22 16:43 5 mcg/kg/min .Q0M STA 1.91 mls/hr Titration Protocol Per Protocol Piperacillin Sod/Tazobactam 50 mls @ 100 mls/hr 10/08/22 17:27 10/08/22 18:32 Sod 3.375 gm/ Sodium Chloride IV 10/08/22 17:56 Infused ONCE ONE Infusion Albumin Human 100 mls @ 100 mls/hr 10/08/22 18:15 10/08/22 20:58 Kedbumin 25 % IV 10/08/22 20:53 100 mls/hr Q6H ODALYS Administration Meropenem 1 gm/ Sodium 100 mls @ 200 mls/hr 10/08/22 20:06 10/08/22 20:27 Chloride IV 10/08/22 20:35 200 mls/hr ONCE ONE Administration Sodium Bicarbonate 50 meq 10/08/22 18:08 10/08/22 18:22 Sodium Bicarbonate 8.4% 50 Meq/50 Ml Syringe IVPUSH 10/08/22 18:09 50 meq ONCE ONE Administration Sodium Bicarbonate 100 meq 10/08/22 18:38 10/08/22 19:12 Sodium Bicarbonate 8.4% 50 Meq/50 Ml Syringe IVPUSH 10/08/22 18:39 100 meq ONCE ONE Administration Medical Decision Making Medical Decision Making MDM Narrative: -overall, patient has very poor prognosis. She will not survive surgery and without surgery patient will not survive -any resuscitation efforts are futile. Patient is intubated, do not resuscitate. Goal of care: Comfort measures only we were able to contact the family. 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 10/08/22 16:28 10/08/22 16:28 Labs: Lab Results 10/08/22 10/08/22 10/08/22 Range/Units 15:47 16:28 16:28 WBC 8.2 (4.8-10.8) X10*3/uL RBC 4.17 L (4.20-5.50) X10*6/uL Hgb 12.2 (12.0-16.0) g/dl Hct 43.6 D (37.0-47.0) % MCV 104.6 H (80.0-98.0) fL MCH 29.3 (27.0-33.0) pg MCHC 28.0 L (31.0-35.0) g/dl RDW 19.2 H (11.0-16.0) % Plt Count 143 L (160-400) X10*3/uL MPV 11.6 (9.4-12.3) fL Immature Gran % (Auto) Cancelled Neut % (Auto) Cancelled Lymph % (Auto) Cancelled Crenshaw % (Auto) Cancelled Eos % (Auto) Cancelled Baso % (Auto) Cancelled Lymph # (Auto) Cancelled Crenshaw # (Auto) Cancelled Eos # (Auto) Cancelled Baso # (Auto) Cancelled Abs Immat Gran (auto) Cancelled Absolute Neuts (auto) Cancelled Absolute Nucleated RBC 0.320 H (0.0-0.012) X10*3/uL Nucleated RBC % (auto) 3.9 H (0.0-0.2) /100WBC Neutrophils % (Manual) 47 (45-73) % Lymphocytes % (Manual) 23 (20-40) % Monocytes % (Manual) 8 (2-11) % Metamyelocytes % 5 % Myelocytes % 1 % Abs Neuts (Manual) 5.2 (2.0-8.3) X10*3/uL Lymphocytes # (Manual) 1.9 (1.2-4.9) X10*3/uL Monocytes # (Manual) 0.7 (0.1-1.2) X10*3/uL Metamyelocytes # 0.4 X10*3/uL Myelocytes # 0.1 X10*/uL Nucleated RBCs 4 H (0-0) /100WBC Platelet Estimate NORMAL (NORMAL) Large Platelets PRESENT Plt Morphology Comment NOTED RBC Morphology NOTED Polychromasia 3+ (>5) /OIF Macrocytosis 2+ (15-30) /OIF ESR (0-20) MM/HR Hold Purple Top O2 Saturation % ABG pH at Pt Temp (7.35-7.45) ABG pCO2 at Pt Temp (32-45) mmHg ABG pO2 at Pt Temp (83-108) mmHg ABG HCO3 (22-26) mmol/L ABG Base Excess (Actual) mmol/L Sodium 156 H (135-145) mmol/L Potassium 4.5 (3.3-5.1) mmol/L Chloride 121 H D (96-108) mmol/L Carbon Dioxide < 5 L* D (22-29) mmol/L Anion Gap TNP BUN 47 H (9-16) mg/dL Creatinine 2.25 H (0.5-1.4) mg/dL Estim Creat Clear Calc 22.4 Estimated GFR 22 POC Glucose 377 H* (60-115) mg/dL Random Glucose 351 H* (60-115) mg/dL Lactic Acid (0.5-2.0) mmol/L Lactic Acid F/U @ 2Hr (0.5-2.0) mmol/L Calcium 8.0 L (8.4-10.2) mg/dL Total Bilirubin 2.2 H (0.0-1.0) mg/dL Direct Bilirubin 1.0 H (0.0-0.5) mg/dL AST 341 H (5-31) U/L ALT 116 H (0-31) U/L Alkaline Phosphatase 96 (39-117) U/L Ammonia (13-55) umol/L Troponin I High Sens (<3.5-17.0) ng/L C-Reactive Protein 0.83 H (< or = 0.50) mg/dL B-Natriuretic Peptide (<100) pg/mL Total Protein 4.4 L (6.5-8.0) g/dL Albumin 1.6 L (3.5-5.0) g/dL Lipase 58 (8-78) U/L Hold Red Top Hold Yellow Top Urine Color Urine Appearance Urine pH (5.0-9.0) Ur Specific Lamar (1.005-1.025) Urine Protein (Neg-Trace) mg/dL Urine Glucose (UA) (Negative) mg/dL Urine Ketones (Negative) mg/dL Urine Blood (Negative) Urine Nitrite (Negative) Ur Leukocyte Esterase (Negative) Urine RBC (0-2) /HPF Urine WBC (0-5) /HPF Ur Squamous Epith Cells (0-2) /HPF Urine Bacteria (None Seen) Hyaline Casts (0-2) /LPF Urine Yeast Salicylates (15-30) mg/dL Urine Opiates Screen (Not Detect) Urine Fentanyl Screen (Not Detect) Acetaminophen (<30) mcg/mL Ur Barbiturates Screen (Not Detect) Ur Phencyclidine Scrn (Not Detect) Ur Amphetamines Screen (Not Detect) U Benzodiazepines Scrn (Not Detect) Urine Cocaine Screen (Not Detect) U Marijuana (THC) Screen (Not Detect) Ethyl Alcohol < 10 mg/dL Influenza Type A (PCR) (Negative) Influenza Type B (PCR) (Negative) RSV RNA Qual (PCR) (Negative) SARS-CoV-2 RNA (RT-PCR) (Negative) 10/08/22 10/08/22 10/08/22 Range/Units 16:28 16:28 16:28 WBC (4.8-10.8) X10*3/uL RBC (4.20-5.50) X10*6/uL Hgb (12.0-16.0) g/dl Hct (37.0-47.0) % MCV (80.0-98.0) fL MCH (27.0-33.0) pg MCHC (31.0-35.0) g/dl RDW (11.0-16.0) % Plt Count (160-400) X10*3/uL MPV (9.4-12.3) fL Immature Gran % (Auto) Neut % (Auto) Lymph % (Auto) Crenshaw % (Auto) Eos % (Auto) Baso % (Auto) Lymph # (Auto) Crenshaw # (Auto) Eos # (Auto) Baso # (Auto) Abs Immat Gran (auto) Absolute Neuts (auto) Absolute Nucleated RBC (0.0-0.012) X10*3/uL Nucleated RBC % (auto) (0.0-0.2) /100WBC Neutrophils % (Manual) (45-73) % Lymphocytes % (Manual) (20-40) % Monocytes % (Manual) (2-11) % Metamyelocytes % % Myelocytes % % Abs Neuts (Manual) (2.0-8.3) X10*3/uL Lymphocytes # (Manual) (1.2-4.9) X10*3/uL Monocytes # (Manual) (0.1-1.2) X10*3/uL Metamyelocytes # X10*3/uL Myelocytes # X10*/uL Nucleated RBCs (0-0) /100WBC Platelet Estimate (NORMAL) Large Platelets Plt Morphology Comment RBC Morphology Polychromasia /OIF Macrocytosis /OIF ESR (0-20) MM/HR Hold Purple Top O2 Saturation % ABG pH at Pt Temp (7.35-7.45) ABG pCO2 at Pt Temp (32-45) mmHg ABG pO2 at Pt Temp (83-108) mmHg ABG HCO3 (22-26) mmol/L ABG Base Excess (Actual) mmol/L Sodium (135-145) mmol/L Potassium (3.3-5.1) mmol/L Chloride (96-108) mmol/L Carbon Dioxide (22-29) mmol/L Anion Gap BUN (9-16) mg/dL Creatinine (0.5-1.4) mg/dL Estim Creat Clear Calc Estimated GFR POC Glucose (60-115) mg/dL Random Glucose (60-115) mg/dL Lactic Acid 22.5 H* (0.5-2.0) mmol/L Lactic Acid F/U @ 2Hr (0.5-2.0) mmol/L Calcium (8.4-10.2) mg/dL Total Bilirubin (0.0-1.0) mg/dL Direct Bilirubin (0.0-0.5) mg/dL AST (5-31) U/L ALT (0-31) U/L Alkaline Phosphatase (39-117) U/L Ammonia 254 H (13-55) umol/L Troponin I High Sens 74.1 H* D (<3.5-17.0) ng/L C-Reactive Protein (< or = 0.50) mg/dL B-Natriuretic Peptide (<100) pg/mL Total Protein (6.5-8.0) g/dL Albumin (3.5-5.0) g/dL Lipase (8-78) U/L Hold Red Top Hold Yellow Top Urine Color Urine Appearance Urine pH (5.0-9.0) Ur Specific Lamar (1.005-1.025) Urine Protein (Neg-Trace) mg/dL Urine Glucose (UA) (Negative) mg/dL Urine Ketones (Negative) mg/dL Urine Blood (Negative) Urine Nitrite (Negative) Ur Leukocyte Esterase (Negative) Urine RBC (0-2) /HPF Urine WBC (0-5) /HPF Ur Squamous Epith Cells (0-2) /HPF Urine Bacteria (None Seen) Hyaline Casts (0-2) /LPF Urine Yeast Salicylates (15-30) mg/dL Urine Opiates Screen (Not Detect) Urine Fentanyl Screen (Not Detect) Acetaminophen (<30) mcg/mL Ur Barbiturates Screen (Not Detect) Ur Phencyclidine Scrn (Not Detect) Ur Amphetamines Screen (Not Detect) U Benzodiazepines Scrn (Not Detect) Urine Cocaine Screen (Not Detect) U Marijuana (THC) Screen (Not Detect) Ethyl Alcohol mg/dL Influenza Type A (PCR) (Negative) Influenza Type B (PCR) (Negative) RSV RNA Qual (PCR) (Negative) SARS-CoV-2 RNA (RT-PCR) (Negative) 10/08/22 10/08/22 10/08/22 Range/Units 16:28 16:28 16:28 WBC (4.8-10.8) X10*3/uL RBC (4.20-5.50) X10*6/uL Hgb (12.0-16.0) g/dl Hct (37.0-47.0) % MCV (80.0-98.0) fL MCH (27.0-33.0) pg MCHC (31.0-35.0) g/dl RDW (11.0-16.0) % Plt Count (160-400) X10*3/uL MPV (9.4-12.3) fL Immature Gran % (Auto) Neut % (Auto) Lymph % (Auto) Crenshaw % (Auto) Eos % (Auto) Baso % (Auto) Lymph # (Auto) Crenshaw # (Auto) Eos # (Auto) Baso # (Auto) Abs Immat Gran (auto) Absolute Neuts (auto) Absolute Nucleated RBC (0.0-0.012) X10*3/uL Nucleated RBC % (auto) (0.0-0.2) /100WBC Neutrophils % (Manual) (45-73) % Lymphocytes % (Manual) (20-40) % Monocytes % (Manual) (2-11) % Metamyelocytes % % Myelocytes % % Abs Neuts (Manual) (2.0-8.3) X10*3/uL Lymphocytes # (Manual) (1.2-4.9) X10*3/uL Monocytes # (Manual) (0.1-1.2) X10*3/uL Metamyelocytes # X10*3/uL Myelocytes # X10*/uL Nucleated RBCs (0-0) /100WBC Platelet Estimate (NORMAL) Large Platelets Plt Morphology Comment RBC Morphology Polychromasia /OIF Macrocytosis /OIF ESR 2 (0-20) MM/HR Hold Purple Top SEE NOTE O2 Saturation % ABG pH at Pt Temp (7.35-7.45) ABG pCO2 at Pt Temp (32-45) mmHg ABG pO2 at Pt Temp (83-108) mmHg ABG HCO3 (22-26) mmol/L ABG Base Excess (Actual) mmol/L Sodium (135-145) mmol/L Potassium (3.3-5.1) mmol/L Chloride (96-108) mmol/L Carbon Dioxide (22-29) mmol/L Anion Gap BUN (9-16) mg/dL Creatinine (0.5-1.4) mg/dL Estim Creat Clear Calc Estimated GFR POC Glucose (60-115) mg/dL Random Glucose (60-115) mg/dL Lactic Acid (0.5-2.0) mmol/L Lactic Acid F/U @ 2Hr (0.5-2.0) mmol/L Calcium (8.4-10.2) mg/dL Total Bilirubin (0.0-1.0) mg/dL Direct Bilirubin (0.0-0.5) mg/dL AST (5-31) U/L ALT (0-31) U/L Alkaline Phosphatase (39-117) U/L Ammonia (13-55) umol/L Troponin I High Sens (<3.5-17.0) ng/L C-Reactive Protein (< or = 0.50) mg/dL B-Natriuretic Peptide 227 H (<100) pg/mL Total Protein (6.5-8.0) g/dL Albumin (3.5-5.0) g/dL Lipase (8-78) U/L Hold Red Top Hold Yellow Top Urine Color Urine Appearance Urine pH (5.0-9.0) Ur Specific Lamar (1.005-1.025) Urine Protein (Neg-Trace) mg/dL Urine Glucose (UA) (Negative) mg/dL Urine Ketones (Negative) mg/dL Urine Blood (Negative) Urine Nitrite (Negative) Ur Leukocyte Esterase (Negative) Urine RBC (0-2) /HPF Urine WBC (0-5) /HPF Ur Squamous Epith Cells (0-2) /HPF Urine Bacteria (None Seen) Hyaline Casts (0-2) /LPF Urine Yeast Salicylates (15-30) mg/dL Urine Opiates Screen (Not Detect) Urine Fentanyl Screen (Not Detect) Acetaminophen (<30) mcg/mL Ur Barbiturates Screen (Not Detect) Ur Phencyclidine Scrn (Not Detect) Ur Amphetamines Screen (Not Detect) U Benzodiazepines Scrn (Not Detect) Urine Cocaine Screen (Not Detect) U Marijuana (THC) Screen (Not Detect) Ethyl Alcohol mg/dL Influenza Type A (PCR) (Negative) Influenza Type B (PCR) (Negative) RSV RNA Qual (PCR) (Negative) SARS-CoV-2 RNA (RT-PCR) (Negative) 10/08/22 10/08/22 10/08/22 Range/Units 17:42 18:00 18:00 WBC (4.8-10.8) X10*3/uL RBC (4.20-5.50) X10*6/uL Hgb (12.0-16.0) g/dl Hct (37.0-47.0) % MCV (80.0-98.0) fL MCH (27.0-33.0) pg MCHC (31.0-35.0) g/dl RDW (11.0-16.0) % Plt Count (160-400) X10*3/uL MPV (9.4-12.3) fL Immature Gran % (Auto) Neut % (Auto) Lymph % (Auto) Crenshaw % (Auto) Eos % (Auto) Baso % (Auto) Lymph # (Auto) Crenshaw # (Auto) Eos # (Auto) Baso # (Auto) Abs Immat Gran (auto) Absolute Neuts (auto) Absolute Nucleated RBC (0.0-0.012) X10*3/uL Nucleated RBC % (auto) (0.0-0.2) /100WBC Neutrophils % (Manual) (45-73) % Lymphocytes % (Manual) (20-40) % Monocytes % (Manual) (2-11) % Metamyelocytes % % Myelocytes % % Abs Neuts (Manual) (2.0-8.3) X10*3/uL Lymphocytes # (Manual) (1.2-4.9) X10*3/uL Monocytes # (Manual) (0.1-1.2) X10*3/uL Metamyelocytes # X10*3/uL Myelocytes # X10*/uL Nucleated RBCs (0-0) /100WBC Platelet Estimate (NORMAL) Large Platelets Plt Morphology Comment RBC Morphology Polychromasia /OIF Macrocytosis /OIF ESR (0-20) MM/HR Hold Purple Top O2 Saturation 100.0 % ABG pH at Pt Temp 6.90 L* (7.35-7.45) ABG pCO2 at Pt Temp 19 L* (32-45) mmHg ABG pO2 at Pt Temp 204 H (83-108) mmHg ABG HCO3 4 L (22-26) mmol/L ABG Base Excess (Actual) -27.2 mmol/L Sodium (135-145) mmol/L Potassium (3.3-5.1) mmol/L Chloride (96-108) mmol/L Carbon Dioxide (22-29) mmol/L Anion Gap BUN (9-16) mg/dL Creatinine (0.5-1.4) mg/dL Estim Creat Clear Calc Estimated GFR POC Glucose (60-115) mg/dL Random Glucose (60-115) mg/dL Lactic Acid (0.5-2.0) mmol/L Lactic Acid F/U @ 2Hr (0.5-2.0) mmol/L Calcium (8.4-10.2) mg/dL Total Bilirubin (0.0-1.0) mg/dL Direct Bilirubin (0.0-0.5) mg/dL AST (5-31) U/L ALT (0-31) U/L Alkaline Phosphatase (39-117) U/L Ammonia (13-55) umol/L Troponin I High Sens (<3.5-17.0) ng/L C-Reactive Protein (< or = 0.50) mg/dL B-Natriuretic Peptide (<100) pg/mL Total Protein (6.5-8.0) g/dL Albumin (3.5-5.0) g/dL Lipase (8-78) U/L Hold Red Top Hold Yellow Top Urine Color Dark Yellow Urine Appearance Turbid Urine pH 6.5 (5.0-9.0) Ur Specific Lamar 1.020 (1.005-1.025) Urine Protein Trace (Neg-Trace) mg/dL Urine Glucose (UA) 500 H (Negative) mg/dL Urine Ketones 15 (Negative) mg/dL Urine Blood Negative (Negative) Urine Nitrite Negative (Negative) Ur Leukocyte Esterase Small (1+) H (Negative) Urine RBC 0-2 (0-2) /HPF Urine WBC 0-5 (0-5) /HPF Ur Squamous Epith Cells >20 (0-2) /HPF Urine Bacteria None Seen (None Seen) Hyaline Casts 3-5 (0-2) /LPF Urine Yeast Present Salicylates (15-30) mg/dL Urine Opiates Screen Not Detected (Not Detect) Urine Fentanyl Screen Not Detected (Not Detect) Acetaminophen (<30) mcg/mL Ur Barbiturates Screen Not Detected (Not Detect) Ur Phencyclidine Scrn Not Detected (Not Detect) Ur Amphetamines Screen Not Detected (Not Detect) U Benzodiazepines Scrn Not Detected (Not Detect) Urine Cocaine Screen Not Detected (Not Detect) U Marijuana (THC) Screen Not Detected (Not Detect) Ethyl Alcohol mg/dL Influenza Type A (PCR) (Negative) Influenza Type B (PCR) (Negative) RSV RNA Qual (PCR) (Negative) SARS-CoV-2 RNA (RT-PCR) (Negative) 10/08/22 10/08/22 10/08/22 Range/Units 18:08 19:17 19:17 WBC (4.8-10.8) X10*3/uL RBC (4.20-5.50) X10*6/uL Hgb (12.0-16.0) g/dl Hct (37.0-47.0) % MCV (80.0-98.0) fL MCH (27.0-33.0) pg MCHC (31.0-35.0) g/dl RDW (11.0-16.0) % Plt Count (160-400) X10*3/uL MPV (9.4-12.3) fL Immature Gran % (Auto) Neut % (Auto) Lymph % (Auto) Crenshaw % (Auto) Eos % (Auto) Baso % (Auto) Lymph # (Auto) C[place]shaw # (Auto) Eos # (Auto) Baso # (Auto) Abs Immat Gran (auto) Absolute Neuts (auto) Absolute Nucleated RBC (0.0-0.012) X10*3/uL Nucleated RBC % (auto) (0.0-0.2) /100WBC Neutrophils % (Manual) (45-73) % Lymphocytes % (Manual) (20-40) % Monocytes % (Manual) (2-11) % Metamyelocytes % % Myelocytes % % Abs Neuts (Manual) (2.0-8.3) X10*3/uL Lymphocytes # (Manual) (1.2-4.9) X10*3/uL Monocytes # (Manual) (0.1-1.2) X10*3/uL Metamyelocytes # X10*3/uL Myelocytes # X10*/uL Nucleated RBCs (0-0) /100WBC Platelet Estimate (NORMAL) Large Platelets Plt Morphology Comment RBC Morphology Polychromasia /OIF Macrocytosis /OIF ESR (0-20) MM/HR Hold Purple Top O2 Saturation % ABG pH at Pt Temp (7.35-7.45) ABG pCO2 at Pt Temp (32-45) mmHg ABG pO2 at Pt Temp (83-108) mmHg ABG HCO3 (22-26) mmol/L ABG Base Excess (Actual) mmol/L Sodium (135-145) mmol/L Potassium (3.3-5.1) mmol/L Chloride (96-108) mmol/L Carbon Dioxide (22-29) mmol/L Anion Gap BUN (9-16) mg/dL Creatinine (0.5-1.4) mg/dL Estim Creat Clear Calc Estimated GFR POC Glucose (60-115) mg/dL Random Glucose (60-115) mg/dL Lactic Acid (0.5-2.0) mmol/L Lactic Acid F/U @ 2Hr (0.5-2.0) mmol/L Calcium (8.4-10.2) mg/dL Total Bilirubin (0.0-1.0) mg/dL Direct Bilirubin (0.0-0.5) mg/dL AST (5-31) U/L ALT (0-31) U/L Alkaline Phosphatase (39-117) U/L Ammonia (13-55) umol/L Troponin I High Sens (<3.5-17.0) ng/L C-Reactive Protein (< or = 0.50) mg/dL B-Natriuretic Peptide (<100) pg/mL Total Protein (6.5-8.0) g/dL Albumin (3.5-5.0) g/dL Lipase (8-78) U/L Hold Red Top See Note Hold Yellow Top See Note Urine Color Urine Appearance Urine pH (5.0-9.0) Ur Specific Lam[place] (1.005-1.025) Urine Protein (Neg-Trace) mg/dL Urine Glucose (UA) (Negative) mg/dL Urine Ketones (Negative) mg/dL Urine Blood (Negative) Urine Nitrite (Negative) Ur Leukocyte Esterase (Negative) Urine RBC (0-2) /HPF Urine WBC (0-5) /HPF Ur Squamous Epith Cells (0-2) /HPF Urine Bacteria (None Seen) Hyaline Casts (0-2) /LPF Urine Yeast Salicylates 5.4 L (15-30) mg/dL Urine Opiates Screen (Not Detect) Urine Fentanyl Screen (Not Detect) Acetaminophen < 17 (<30) mcg/mL Ur Barbiturates Screen (Not Detect) Ur Phencyclidine Scrn (Not Detect) Ur Amphetamines Screen (Not Detect) U Benzodiazepines Scrn (Not Detect) Urine Cocaine Screen (Not Detect) U Marijuana (THC) Screen (Not Detect) Ethyl Alcohol < 10 mg/dL Influenza Type A (PCR) NEGATIVE (Negative) Influenza Type B (PCR) NEGATIVE (Negative) RSV RNA Qual (PCR) NEGATIVE (Negative) SARS-CoV-2 RNA (RT-PCR) NEGATIVE (Negative) 10/08/22 Range/Units 19:17 WBC (4.8-10.8) X10*3/uL RBC (4.20-5.50) X10*6/uL Hgb (12.0-16.0) g/dl Hct (37.0-47.0) % MCV (80.0-98.0) fL MCH (27.0-33.0) pg MCHC (31.0-35.0) g/dl RDW (11.0-16.0) % Plt Count (160-400) X10*3/uL MPV (9.4-12.3) fL Immature Gran % (Auto) Neut % (Auto) Lymph % (Auto) [place] % (Auto) Eos % (Auto) Baso % (Auto) Lymph # (Auto) [place] # (Auto) Eos # (Auto) Baso # (Auto) Abs Immat Gran (auto) Absolute Neuts (auto) Absolute Nucleated RBC (0.0-0.012) X10*3/uL Nucleated RBC % (auto) (0.0-0.2) /100WBC Neutrophils % (Manual) (45-73) % Lymphocytes % (Manual) (20-40) % Monocytes % (Manual) (2-11) % Metamyelocytes % % Myelocytes % % Abs Neuts (Manual) (2.0-8.3) X10*3/uL Lymphocytes # (Manual) (1.2-4.9) X10*3/uL Monocytes # (Manual) (0.1-1.2) X10*3/uL Metamyelocytes # X10*3/uL Myelocytes # X10*/uL Nucleated RBCs (0-0) /100WBC Platelet Estimate (NORMAL) Large Platelets Plt Morphology Comment RBC Morphology Polychromasia /OIF Macrocytosis /OIF ESR (0-20) MM/HR Hold Purple Top O2 Saturation % ABG pH at Pt Temp (7.35-7.45) ABG pCO2 at Pt Temp (32-45) mmHg ABG pO2 at Pt Temp (83-108) mmHg ABG HCO3 (22-26) mmol/L ABG Base Excess (Actual) mmol/L Sodium (135-145) mmol/L Potassium (3.3-5.1) mmol/L Chloride (96-108) mmol/L Carbon Dioxide (22-29) mmol/L Anion Gap BUN (9-16) mg/dL Creatinine (0.5-1.4) mg/dL Estim Creat Clear Calc Estimated GFR POC Glucose (60-115) mg/dL Random Glucose (60-115) mg/dL Lactic Acid (0.5-2.0) mmol/L Lactic Acid F/U @ 2Hr 22.1 H* (0.5-2.0) mmol/L Calcium (8.4-10.2) mg/dL Total Bilirubin (0.0-1.0) mg/dL Direct Bilirubin (0.0-0.5) mg/dL AST (5-31) U/L ALT (0-31) U/L Alkaline Phosphatase (39-117) U/L Ammonia (13-55) umol/L Troponin I High Sens (<3.5-17.0) ng/L C-Reactive Protein (< or = 0.50) mg/dL B-Natriuretic Peptide (<100) pg/mL Total Protein (6.5-8.0) g/dL Albumin (3.5-5.0) g/dL Lipase (8-78) U/L Hold Red Top Hold Yellow Top Urine Color Urine Appearance Urine pH (5.0-9.0) Ur Specific [place] (1.005-1.025) Urine Protein (Neg-Trace) mg/dL Urine Glucose (UA) (Negative) mg/dL Urine Ketones (Negative) mg/dL Urine Blood (Negative) Urine Nitrite (Negative) Ur Leukocyte Esterase (Negative) Urine RBC (0-2) /HPF Urine WBC (0-5) /HPF Ur Squamous Epith Cells (0-2) /HPF Urine Bacteria (None Seen) Hyaline Casts (0-2) /LPF Urine Yeast Salicylates (15-30) mg/dL Urine Opiates Screen (Not Detect) Urine Fentanyl Screen (Not Detect) Acetaminophen (<30) mcg/mL Ur Barbiturates Screen (Not Detect) Ur Phencyclidine Scrn (Not Detect) Ur Amphetamines Screen (Not Detect) U Benzodiazepines Scrn (Not Detect) Urine Cocaine Screen (Not Detect) U Marijuana (THC) Screen (Not Detect) Ethyl Alcohol mg/dL Influenza Type A (PCR) (Negative) Influenza Type B (PCR) (Negative) RSV RNA Qual (PCR) (Negative) SARS-CoV-2 RNA (RT-PCR) (Negative) Independent Interpretation I performed an independent interpretation of an: CT Scan (Sec scan of the abdomen my interpretation: Ascites, the seems to be air bubbles in the ascites) Radiology Impression Discussion of test interpretation with radiology: I have reviewed the radiologist's reading. Radiologist Impression: Head CT: No intra or extra-axial fluid collection, hemorrhage, or mass. No ventriculomegaly. No midline shift or herniation. Basal cisterns are patent. Levy-white matter differentiation is maintained. No territorial encephalomalacia. ?No significant volume loss. Redemonstrated mild symmetric hypoattenuation in the posterior periventricular white matter bilaterally, nonspecific. No calvarial fracture or soft tissue abnormality.? Mild mucosal thickening and secretions in the right sphenoid sinus. Mastoid air cells normally aerated. CT/CT head/brain wo IV con IMPRESSION: No acute intracranial pathology. ? Chest, abdomen and pelvis CT: [address] [address] [address] Scan Report Signed Patient: Alison Peck MR#: [id number] : 1965 Acct:[id number] Age/Sex: 57 / F ADM Date: 10/08/22 Loc: HO.ED Attending Dr: Ordering Physician: Latrice Lopez MD Date of Service: 10/08/22 Procedure(s): CT chest wo IV con Accession Number(s): [id number] cc: Latrice Lopez MD~ EXAMINATION: CT CHEST, ABDOMEN AND PELVIS WITHOUT CONTRAST. CLINICAL INFORMATION: septic . COMPARISON: 08/20/2022. TECHNIQUE: Multidetector volumetric imaging was performed from the thoracic inlet through the pubic symphysis without intravenous contrast. Sagittal and coronal reformatted images were obtained on the technologist workstation. This CT examination was performed using dose optimization techniques as appropriate, variously including the following: *Automated exposure control *Adjustment of mA and/or kV according to patient size (this includes techniques or standardized protocols for targeted exams where dose is matched to indication/reason for exam; i.e. extremities or head) *Use of iterative reconstruction technique DLP: 722 mGy-cm FINDINGS: CHEST: Lungs: Atelectatic changes at the dependent left base no dense consolidation. Central airways grossly unremarkable. Note the endotracheal tube tip is at the level the momo directed is towards the right mainstem bronchus Mediastinum: Vascular calcification seen in the aorta. No bulky hilar or mediastinal adenopathy. Central venous catheters are in place overlying the cavoatrial junction and right atrium. Coronary Artery Calcification: Present Pericardium/Pleura: Tiny pericardial effusion. No significant pleural effusion Chest Wall/Axilla: Unremarkable. ABDOMEN/PELVIS: Peritoneal Space:Ascites is again seen. There is however new free air somewhat we with loculated air bubbles seen anteriorly Liver, Gallbladder, Biliary Tree: Nodular cirrhotic liver. No discrete mass appreciated on this noncontrast study.? Gallstones within the gallbladder Pancreas: Unremarkable. Spleen: Unremarkable. Adrenal Glands: Unremarkable. Kidneys and Ureters: The kidneys are normal in size, shape, and attenuation. No hydronephrosis, hydroureter, or calculi seen. No perinephric stranding. Bladder: Decompressed with Lang catheter Gastrointestinal Tract: There is scattered colonic diverticulosis. There is diffuse colonic wall thickening extending from the cecum to the sigmoid colon. Etiology of this is uncertain. Colon had a more normal appearance on the 08/20/2022 study. Infectious or inflammatory colitis would be suspected with this distribution. The colon is a likely source of this free air there is irregularity seen in the region of the hepatic flexure more than I would expect just for a focal fold. I do not appreciate any obstructive changes to the small bowel. Nasogastric tube tip in the fundus of the stomach Abdominal Wall: No significant hernia is appreciated. Lymphovascular Structures: Vascular calcification within the aorta iliac system. Pelvic Viscera: Fat-containing right pelvic dermoid cyst again noted with a coarsened calcification. This measures approximately 4.6 x 4.0 cm in size. Osseus Structures: Multilevel degenerative changes in the spine CT/CT chest wo IV con IMPRESSION: 1.? Diffuse colonic wall thickening extending from the cecum to the sigmoid colon. Etiology of this is uncertain. Infectious or inflammatory colitis would be suspected with this distribution. 2.? There is new pneumoperitoneum with loculated air bubbles seen anteriorly. The colon is the likely source of this free air. There is irregularity seen in the region of the hepatic flexure more than I would expect just for a focal fold and this area could be evaluated further. 3.? Cirrhotic liver with ascites again noted. 4.? Endotracheal tube tip is at the level the momo directed towards the right mainstem bronchus. This should be repositioned. 5.? Chronic appearing and postoperative changes otherwise as described. ? Critical Care Time Critical Care Time Critical Care Time: Yes Total Critical Care Time: 120 Attestation: I have personally provided critical care time. Time includes review of lab data, radiology results, discussion with consultants, and monitoring for potential decompensation. Intervention performed as documented. Discharge Plan Discharge Clinical Impression: Bowel perforation, Septic shock, Metabolic encephalopathy, Metabolic acidosis, Acute hypernatremia, LISBET (acute kidney injury) Patient Disposition: Admitted As Inpatient
[2022-10-08] MEDS: propofoL 1,000 MG/100 ML VIAL 3.81 MG IVCONT (18:18)
[2022-10-08] MEDS: Sodium Bicarbonate 8.4% 50 MEQ/50 ML SYRINGE IVPUSH (18:22)
[2022-10-08 18:23] LABS: Appearance Urine Turbid; Color Urine Dark Yellow; Glucose Urine UA 500 mg/dL (Negative); Leukocyte Esterase Urine Small (1+) (Negative); Nitrite Urine Negative (Negative); PH 6.5 (5.0-9.0); UMIC TRIGGER UACC YES; Urine Blood Negative (Negative); Urine Ketones 15 mg/dL (Negative); Urine Protein Trace mg/dL (Neg-Trace)
[2022-10-08] MEDS: Albumin Human 25 % 100 ML IV ×4 (18:24→20:58)
[2022-10-08 18:31] LABS: Amphetamine Screen Urine Not Detected (Not Detect); Barbiturates, Urine Not Detected (Not Detect); Benzodiazepines Screen Urine Not Detected (Not Detect); Cannabinoid Screen Urine Not Detected (Not Detect); Cocaine Screen Urine Not Detected (Not Detect); Fentanyl, urine Not Detected (Not Detect); Opiate Screen Urine Not Detected (Not Detect); Phencyclidine Screen Urine Not Detected (Not Detect)
[2022-10-08 18:37] LABS: Bacteria Urine None Seen (None Seen); RBC Urine 0-2 /HPF (0-2); Squamous Epithelial Cell Urine >20 /HPF (0-2); UACC Culture Trigger YES; WBC Urine 0-5 /HPF (0-5)
[2022-10-08 18:41] LABS: Reflex Lactate? Lactic Acid Added
[2022-10-08] MEDS: Sodium Bicarbonate 8.4% 150 MEQ in Dextrose 5 % 850 ML 100 MEQ IV (18:45)
--- NOTE | 2022-10-08 18:49 | PC.NURSE ---
Per md winter to use rt ij central line.
[2022-10-08 18:56] LABS: Erythrocyte Sedimentation Rate 2 MM/HR (0-20)
[2022-10-08 18:58] LABS: Influenza A PCR NEGATIVE (Negative); Influenza B PCR NEGATIVE (Negative); Resp Syncy Virus RNA Qual PCR NEGATIVE (Negative); SARS COV2 PCR INHOUSE NEGATIVE (Negative)
--- NOTE | 2022-10-08 18:58 | PC.NURSE ---
Epi gtt mixed by myself, verifed by Yolanda PEREZ. Pretty noted 76/46 w/ map of 56.
[2022-10-08] MEDS: EPINEPHrine 5 MG in Dextrose 5 % 250 ML 77.72 MG IVCONT ×2 (19:00→22:00)
[2022-10-08] MEDS: Sodium Bicarbonate 8.4% 50 MEQ/50 ML SYRINGE 100 MEQ IVPUSH (19:12)
--- NOTE | 2022-10-08 19:38 | P.CONGS_ITS ---
History of Present Illness Consult details Consult date: 10/08/22 Requesting physician: Latrice Lopez Narrative: 57-year-old female patient with history of diabetes mellitus, alcoholism, cirrhosis, ascites, found unresponsive at home by family and brought in by EMS to the emergency department. Patient was found to be hypotensive and hypothermic, and was subsequently intubated and placed on 2 pressors. Initial laboratories revealed a glucose of 377, lactic acid of 22.5, and troponin of 74.1. Patient was found to be in septic shock. CT abdomen and pelvis revealed ?diffuse colonic wall thickening extending from cecum to sigmoid possibly due to infectious or inflammatory colitis. New pneumoperitoneum with loculated air bubble seen anteriorly new from the previous CT.: Is thought to be the possible source. Leg gallstones and a cirrhotic liver are identified as well as large amount of ascitic fluid. The patient recently underwent paracentesis in the Radiology Department on 10/01/2022. 5.1 L of fluid were evacuation at that time. Patient's current vital signs are 98/43 heart rate of 104, on Levophed and maxed out on epinephrine. Review of Systems Review of Systems: Yes unobtainable due to endotracheal tube PMFSH Past Medical History Medical History Ascites Cirrhosis Cirrhosis Diabetes (~01/31/21) Diabetes mellitus with hyperglycemia Diabetes type 2, controlled Gallstones Hepatic failure due to alcoholism HTN (hypertension) Kidney, perinephric abscess Liver cirrhosis Portal hypertension SBP (spontaneous bacterial peritonitis) UTI (urinary tract infection) UTI (urinary tract infection) UTI due to extended-spectrum beta lactamase (ESBL) producing Escherichia coli Varices of other sites Family History Family History Mother No problems noted. Father No problems noted. Social History Social History Household Members: Unknown / Unable to assess Household Members Other:: Patient's son Housing: Unknown / Unable to assess Do you presently have visiting nurse or other home services: No Unable to assess alcohol history related to: Unknown Alcohol intake: unknown Patient Tobacco Use Status: Never used Tobacco Smoked in Last 30 Days: Yes e-Cigarette/Vaping Use: Never Used Second Hand Smoke Exposure: No Use of substances other than those prescribed or required for medical reasons: Unable to respond Advance Directives: Yes Advance Directives on File: Yes Advance Directives Date on File: 06/15/21 Do you have thoughts of harming others: None Do you have a plan to hurt others: No Plan Recently lost weight without trying: Unsure How much weight loss: Unsure Eating poorly because of decreased appetite: No Nutrition screen score: 4 Nutrition Risks: No Nutritional Risk Patient : No : No Poor oral hygiene: No service: No Current occupational status: unemployed and disabled Cognitive needs: No Hearing needs: No Vision needs: No Meds Allergies Allergy/AdvReac Type Severity Reaction Status Date / Time No Known Allergies Allergy Verified 09/17/22 20:25 [No Known Allergies*] Active Medications: Current Medications Norepinephrine Bitartrate (Levophed) 8 mg in 250 mls @ 0 mls/hr IV .Q0M ODALYS; Protocol Last Admin: 10/08/22 18:17 Dose: 1 mcg/kg/min, 119.06 mls/hr Sodium Bicarbonate 150 meq/ (Dextrose) 1,000 mls @ 100 mls/hr IV .Q10H ODALYS Last Admin: 10/08/22 18:45 Dose: 100 mls/hr Albumin Human (Kedbumin 25 %) 100 mls @ 100 mls/hr IV Q6H ODALYS Stop: 10/09/22 13:14 Last Admin: 10/08/22 19:09 Dose: 100 mls/hr Epinephrine 5 mg/ Dextrose 255 mls @ 0 mls/hr IVCONT .Q0M ODALYS; Protocol Last Admin: 10/08/22 19:00 Dose: 0.4 mcg/kg/min, 77.72 mls/hr Home Medications Medication Instructions Recorded Confirmed Last Taken Type insulin glargine 100 unit/mL (3 20 unit subcut DAILY 07/14/22 09/18/22 08/14/22 History mL) subcutaneous pen (Lantus Solostar U-100 Insulin) bisacodyl 5 mg tablet,delayed 5 mg PO DAILY 09/18/22 09/18/22 Unknown History release (Laxative (bisacodyl)) carvedilol 3.125 mg tablet 1 tab PO BID 09/18/22 09/18/22 Unknown History lactulose 10 gram/15 mL oral 45 ml PO DAILY 09/18/22 09/18/22 Unknown History solution nystatin 100,000 unit/gram topical 1 applic topical BID 09/18/22 09/18/22 Unknown History powder omeprazole 40 mg capsule,delayed 1 cap PO BID 09/18/22 09/18/22 Unknown History release pregabalin 25 mg capsule 1 cap PO BID 09/18/22 09/18/22 Unknown History Physical Exam Vital Signs: Vital Signs: Last Vital Signs Temp 92.5 F L 10/08/22 18:37 Pulse 104 H 10/08/22 19:00 Resp 30 H 10/08/22 18:37 BP 98/43 L 10/08/22 19:00 Pulse Ox 97 10/08/22 18:37 O2 Del Method 10/08/22 18:00 FiO2 50 10/08/22 18:37 BMI result Body Mass Index 27.3 Const: General: patient obtunded Orientation/consciousness: patient obtunded Limitations: altered mental status HEENT: Other: Intubated and on ventilator Eyes: Pupils: Pupils not reactive Resp: Other: Breathing on ventilator GI: Other: Abdomen distended, no peritoneal signs, no bowel sounds, dull to percussion Skin: Other: Cool and dry Neuro: General: patient obtunded Extrem: General: Yes cyanosis Results Labs 10/08/22 16:28 10/08/22 16:28 Labs: Abnormal lab results 10/08/22 10/08/22 10/08/22 Range/Units 15:47 16:28 16:28 RBC 4.17 L (4.20-5.50) X10*6/uL MCV 104.6 H (80.0-98.0) fL MCHC 28.0 L (31.0-35.0) g/dl RDW 19.2 H (11.0-16.0) % Plt Count 143 L (160-400) X10*3/uL Absolute Nucleated RBC 0.320 H (0.0-0.012) X10*3/uL Nucleated RBC % (auto) 3.9 H (0.0-0.2) /100WBC Nucleated RBCs 4 H (0-0) /100WBC ABG pH at Pt Temp (7.35-7.45) ABG pCO2 at Pt Temp (32-45) mmHg ABG pO2 at Pt Temp (83-108) mmHg ABG HCO3 (22-26) mmol/L Sodium 156 H (135-145) mmol/L Chloride 121 H D (96-108) mmol/L Carbon Dioxide < 5 L* D (22-29) mmol/L BUN 47 H (9-16) mg/dL Creatinine 2.25 H (0.5-1.4) mg/dL POC Glucose 377 H* (60-115) mg/dL Random Glucose 351 H* (60-115) mg/dL Lactic Acid (0.5-2.0) mmol/L Calcium 8.0 L (8.4-10.2) mg/dL Total Bilirubin 2.2 H (0.0-1.0) mg/dL Direct Bilirubin 1.0 H (0.0-0.5) mg/dL AST 341 H (5-31) U/L ALT 116 H (0-31) U/L Ammonia (13-55) umol/L Troponin I High Sens (<3.5-17.0) ng/L C-Reactive Protein 0.83 H (< or = 0.50) mg/dL B-Natriuretic Peptide (<100) pg/mL Total Protein 4.4 L (6.5-8.0) g/dL Albumin 1.6 L (3.5-5.0) g/dL Urine Glucose (UA) (Negative) mg/dL Ur Leukocyte Esterase (Negative) 10/08/22 10/08/22 10/08/22 Range/Units 16:28 16:28 16:28 RBC (4.20-5.50) X10*6/uL MCV (80.0-98.0) fL MCHC (31.0-35.0) g/dl RDW (11.0-16.0) % Plt Count (160-400) X10*3/uL Absolute Nucleated RBC (0.0-0.012) X10*3/uL Nucleated RBC % (auto) (0.0-0.2) /100WBC Nucleated RBCs (0-0) /100WBC ABG pH at Pt Temp (7.35-7.45) ABG pCO2 at Pt Temp (32-45) mmHg ABG pO2 at Pt Temp (83-108) mmHg ABG HCO3 (22-26) mmol/L Sodium (135-145) mmol/L Chloride (96-108) mmol/L Carbon Dioxide (22-29) mmol/L BUN (9-16) mg/dL Creatinine (0.5-1.4) mg/dL POC Glucose (60-115) mg/dL Random Glucose (60-115) mg/dL Lactic Acid 22.5 H* (0.5-2.0) mmol/L Calcium (8.4-10.2) mg/dL Total Bilirubin (0.0-1.0) mg/dL Direct Bilirubin (0.0-0.5) mg/dL AST (5-31) U/L ALT (0-31) U/L Ammonia 254 H (13-55) umol/L Troponin I High Sens 74.1 H* D (<3.5-17.0) ng/L C-Reactive Protein (< or = 0.50) mg/dL B-Natriuretic Peptide (<100) pg/mL Total Protein (6.5-8.0) g/dL Albumin (3.5-5.0) g/dL Urine Glucose (UA) (Negative) mg/dL Ur Leukocyte Esterase (Negative) 10/08/22 10/08/22 10/08/22 Range/Units 16:28 17:42 18:00 RBC (4.20-5.50) X10*6/uL MCV (80.0-98.0) fL MCHC (31.0-35.0) g/dl RDW (11.0-16.0) % Plt Count (160-400) X10*3/uL Absolute Nucleated RBC (0.0-0.012) X10*3/uL Nucleated RBC % (auto) (0.0-0.2) /100WBC Nucleated RBCs (0-0) /100WBC ABG pH at Pt Temp 6.90 L* (7.35-7.45) ABG pCO2 at Pt Temp 19 L* (32-45) mmHg ABG pO2 at Pt Temp 204 H (83-108) mmHg ABG HCO3 4 L (22-26) mmol/L Sodium (135-145) mmol/L Chloride (96-108) mmol/L Carbon Dioxide (22-29) mmol/L BUN (9-16) mg/dL Creatinine (0.5-1.4) mg/dL POC Glucose (60-115) mg/dL Random Glucose (60-115) mg/dL Lactic Acid (0.5-2.0) mmol/L Calcium (8.4-10.2) mg/dL Total Bilirubin (0.0-1.0) mg/dL Direct Bilirubin (0.0-0.5) mg/dL AST (5-31) U/L ALT (0-31) U/L Ammonia (13-55) umol/L Troponin I High Sens (<3.5-17.0) ng/L C-Reactive Protein (< or = 0.50) mg/dL B-Natriuretic Peptide 227 H (<100) pg/mL Total Protein (6.5-8.0) g/dL Albumin (3.5-5.0) g/dL Urine Glucose (UA) 500 H (Negative) mg/dL Ur Leukocyte Esterase Small (1+) H (Negative) Short CBC 10/08/22 Range/Units 16:28 WBC 8.2 (4.8-10.8) X10*3/uL Hgb 12.2 (12.0-16.0) g/dl Hct 43.6 D (37.0-47.0) % Plt Count 143 L (160-400) X10*3/uL BMP 10/08/22 16:28 Sodium 156 H Potassium 4.5 Chloride 121 H D Carbon Dioxide < 5 L* D BUN 47 H Creatinine 2.25 H Calcium 8.0 L Liver Function 10/08/22 Range/Units 16:28 Total Bilirubin 2.2 H (0.0-1.0) mg/dL Direct Bilirubin 1.0 H (0.0-0.5) mg/dL AST 341 H (5-31) U/L ALT 116 H (0-31) U/L Alkaline Phosphatase 96 (39-117) U/L Albumin 1.6 L (3.5-5.0) g/dL Urine 10/08/22 Range/Units 18:00 Urine Color Dark Yellow Urine Appearance Turbid Urine pH 6.5 (5.0-9.0) Ur Specific [place] 1.020 (1.005-1.025) Urine Protein Trace (Neg-Trace) mg/dL Urine Glucose (UA) 500 H (Negative) mg/dL All other labs normal. Imaging Abdomen CT scan report/results: image reviewed CT scan - chest: image reviewed CT scan - pelvis: image reviewed Assessment and Plan (1) Hypotension: Status: Acute (2) Diabetes mellitus with hyperglycemia: Status: Acute (3) Portal hypertension: Status: Acute (4) Cirrhosis: Status: Acute (5) Perforated abdominal viscus: Status: Acute Plan 57-year-old female patient with multiple medical problems including cirrhosis, diabetes, presenting in septic shock presumably from a perforated viscus of unknown duration. Patient presented hypotensive and hypothermic is currently requiring multiple pressors to maintain blood pressure. Troponin levels are markedly elevated as are the lactate levels. Patient is a very poor risk for any surgical procedure; I feel she is unlikely to survive a surgical procedure at this time. I placed a call to her sister, Mariusz, posted as her primary contact. A message was left on her voicemail. Recommend supportive care at this time. Discussed with Dr. Lopez and Dr. Erickson. Time Spent With Patient Time: Total time managing care of this patient today ____ minutes. Procedures Date of Service Date of Service: 10/08/22
[2022-10-08 19:50] LABS: ~Lactic Acid-LAB USE ONLY 22.1 mmol/L (0.5-2.0)
[2022-10-08 19:51] LABS: Acetaminophen LAB < 17 mcg/mL (<30); Ethanol < 10 mg/dL; Salicylate 5.4 mg/dL (15-30)
--- NOTE | 2022-10-08 19:51 | PC.NURSE ---
Addendum entered by Sherrell Boyle 10/08/22 20:23: Pts code status is DNR not ARCHIV[facility] ECONOMIC HISTORY per Dr Lopez Original Note: Assumed care of pt. Pt is intubated with 30% o2, sat 98%, RR 18 bpm. Sinus tach on monitor with HR 123. Core temp 93.6F, giovanni hugger in place. Current bp 116/57 Map 69. Two central lines noted with the following meds running: Norepi @ 1mcg/kg/min Propofol 5mcg/kg/min Sodium bicarb 100ml/hr Albumin 25g running at 98.39ml/hr Epi @ 0.4mcg/kg/min Dr Lopez at bedside. Pt is no longer full code and is comfort measures only at this time per Dr Lopez. SELINA Jin removed IO from left lower extremity.
--- NOTE | 2022-10-08 19:51 | PM.CCN ---
Critical Care Event Note Summary Date of Service: 10/08/22 Code activated: No Narrative: Case reviewed and discussed with Drs. Lopez and Mihir. Essentially, an unfortunate 57 y/o lady with underlying decompensated cirrhosis who presented with profound metabolic acidosis from perforated viscus and resultant cardiogenic/septic shock requiring maimum vasopressor and ventilatory support, not a candidate for surgical intervention on evaluation by general surgery. With no surgical options available patient is at the end of her life and is not expected to last more than hours. Family/HCP not available for end of life discussion. In this circumstances attempting CPR would be futile. Agree with end of life care in DNR code status. Critical Care Time (minutes): 0
[2022-10-08] MEDS: Heparin Sodium,Porcine 5,000 UNIT/ML VIAL 5000 UNIT SUBCUT (20:27)
--- NOTE | 2022-10-08 20:36 | PM.CCHP ---
History of Present Illness Date of Service: 10/08/22 Attending physician on admission: Ian Erickson Chief Complaint: Unresponsive ?57-year-old female with pertinent history of cirrhosis, insulin-dependent diabetes mellitus, gastroesophageal reflux disease, essential hypertension with recent hospitalization 09/17/22 to 09/23/22 for Cirrhosis with ascites treated with paracentesis, send home on aldactone and lasix. Today patient presented to the emergency room unresponsive.? According to EMS family called due to patient being unresponsive,? when they arrive patient? pulse was in the 30s? they push 1 mg atropine EN route to the hospital.? On arrival to the emergency room blood pressure was 52 or 30, heart rate in 80s,? rectal temperature 90 degrees.? Patient was emergently intubated by ED physician. Laboratory data was significant for abgs as follow: 6.90//204/4.? Serum sodium 156, chloride 121, serum bicarb less than 5, BUN 47, creatinine 2.25, serum glucose 351, lactic 22.5,? total bilirubin 2.2, AST 341, ALT 116, troponin 74, ammonia 254, albumin 1.[address]: revealed diffuse colonic wall thickening extending from cecum to sigmoid possibly due to infectious or inflammatory colitis.? New pneumoperitoneum with loculated air bubble seen anteriorly new from the previous CT. Leg gallstones and a cirrhotic liver are identified as well as large amount of ascitic fluid.?? CHEST CT: No acute findings? HEAD CT:? no acute findings ED COURSE:? ?Patient was emergently intubated, ? receive 3 doses of? bicarb IV? pushes, started on Levophed and epinephrine drip, as well as bicarb drip and albumin ? General surgery was consulted,? Dr. Ash,? evaluated patient, but not a candidate for surgical intervention on evaluation. Initially, ED physician Dr Lopez and myself attempted to reach HCP Sister Mariusz Suresh ([phone]) but unable to reach, multiple voicemails left. Primary HCP Sabine Floreses with no phone number in chart or in advance directive paper unable to be reached.? ? Due to patient not being a candidate for surgical intervention, Not able to reach family members, Dr Lopez and attending Dr Erickson both agree CPR will be futile, both physicians? Agree on DNR status. Later, Mariusz able to call back, informed of patient condition she agrees with DNR status. I was able to contact her daughter and primary HCP Sabine [phone], who also agrees with DNR. Review of Systems Review of Systems: Yes Unobtainable due to mental condition PMFSH Past Medical History Medical History Ascites Cirrhosis Cirrhosis Diabetes (~01/31/21) Diabetes mellitus with hyperglycemia Diabetes type 2, controlled Gallstones Hepatic failure due to alcoholism HTN (hypertension) Kidney, perinephric abscess Liver cirrhosis Portal hypertension SBP (spontaneous bacterial peritonitis) UTI (urinary tract infection) UTI (urinary tract infection) UTI due to extended-spectrum beta lactamase (ESBL) producing Escherichia coli Varices of other sites Family History Family History Mother No problems noted. Father No problems noted. Social History Social History Household Members: Children Household Members Other:: Patient's son Housing: House Do you presently have visiting nurse or other home services: No Alcohol intake: unknown Patient Tobacco Use Status: Never used Tobacco Smoked in Last 30 Days: Yes e-Cigarette/Vaping Use: Never Used Second Hand Smoke Exposure: No Advance Directives: Yes Advance Directives on File: Yes Advance Directives Date on File: 06/15/21 Patient : No service: No Current occupational status: unemployed and disabled Cognitive needs: No Hearing needs: No Vision needs: No Meds Allergies Allergy/AdvReac Type Severity Reaction Status Date / Time No Known Allergies Allergy Verified 09/17/22 20:25 [No Known Allergies*] Active Medications: Current Medications Heparin Sodium (Porcine) (Heparin Sodium,Porcine 5,000 Unit/Ml Vial) 5,000 unit SUBCUT TID ODALYS Last Admin: 10/08/22 20:27 Dose: 5,000 unit Norepinephrine Bitartrate (Levophed) 8 mg in 250 mls @ 0 mls/hr IV .Q0M ODALYS; Protocol Last Admin: 10/08/22 20:13 Dose: 1 mcg/kg/min, 119.06 mls/hr Sodium Bicarbonate 150 meq/ (Dextrose) 1,000 mls @ 100 mls/hr IV .Q10H ODALYS Last Admin: 10/08/22 18:45 Dose: 100 mls/hr Albumin Human (Kedbumin 25 %) 100 mls @ 100 mls/hr IV Q6H [facility] Stop: 10/09/22 13:14 Last Admin: 10/08/22 20:01 Dose: 100 mls/hr Epinephrine 5 mg/ Dextrose 255 mls @ 0 mls/hr IVCONT .Q0M [facility]; Protocol Last Admin: 10/08/22 19:00 Dose: 0.4 mcg/kg/min, 77.72 mls/hr Home Medications Medication Instructions Recorded Confirmed Last Taken Type insulin glargine 100 unit/mL (3 20 unit subcut DAILY 07/14/22 09/18/22 08/14/22 History mL) subcutaneous pen (Lantus Solostar U-100 Insulin) bisacodyl 5 mg tablet,delayed 5 mg PO DAILY 09/18/22 09/18/22 Unknown History release (Laxative (bisacodyl)) carvedilol 3.125 mg tablet 1 tab PO BID 09/18/22 09/18/22 Unknown History lactulose 10 gram/15 mL oral 45 ml PO DAILY 09/18/22 09/18/22 Unknown History solution nystatin 100,000 unit/gram topical 1 applic topical BID 09/18/22 09/18/22 Unknown History powder omeprazole 40 mg capsule,delayed 1 cap PO BID 09/18/22 09/18/22 Unknown History release pregabalin 25 mg capsule 1 cap PO BID 09/18/22 09/18/22 Unknown History Physical Exam Vital Signs: Vital Signs: Last Vital Signs Temp 93.9 F L 10/08/22 20:00 Pulse 123 H 10/08/22 20:13 Resp 18 10/08/22 20:00 BP 110/54 L 10/08/22 20:13 Pulse Ox 98 10/08/22 20:00 O2 Del Method 10/08/22 20:00 FiO2 50 10/08/22 20:04 BMI result Body Mass Index 27.3 Focus assessment performed at 1999 ?General:? patient intubated. HEENT:? Head is normocephalic, atraumatic, pupils dilated, non reactive.? Buccal mucosa is dry, Neck is supple without lymphadenopathy. ?Cardiac:? Sinus Tach. Clear S1-S2, no murmurs rubs or gallops. ?Pulmonary:?Dimnished to auscultation, no wheezes, rales or rhonchi. ?Abdomen:? ?Abdomen hard, distended, hypoactive bowel sounds . ?Musculoskeletal:?Moving all 4 extremities randomly ?Neurologic:? No focal deficits noted .?? ?Skin:? Intact, no lesions, edema, erythema, clubbing or cyanosis.? No ulcers. Vascular:? 2+ pulses upper and lower extremities distally.? Results Labs 10/08/22 16:28 10/08/22 16:28 Labs: Laboratory Results - last 24 hr 10/08/22 10/08/22 10/08/22 15:47 16:28 16:28 MCV 104.6 H MCH 29.3 MCHC 28.0 L RDW 19.2 H Plt Count 143 L MPV 11.6 Immature Gran % (Auto) Cancelled Neut % (Auto) Cancelled Lymph % (Auto) Cancelled [place] % (Auto) Cancelled Eos % (Auto) Cancelled Baso % (Auto) Cancelled Lymph # (Auto) Cancelled [place] # (Auto) Cancelled Eos # (Auto) Cancelled Baso # (Auto) Cancelled Abs Immat Gran (auto) Cancelled Absolute Neuts (auto) Cancelled Absolute Nucleated RBC 0.320 H Nucleated RBC % (auto) 3.9 H Neutrophils % (Manual) 47 Lymphocytes % (Manual) 23 Monocytes % (Manual) 8 Metamyelocytes % 5 Myelocytes % 1 Abs Neuts (Manual) 5.2 Lymphocytes # (Manual) 1.9 Monocytes # (Manual) 0.7 Metamyelocytes # 0.4 Myelocytes # 0.1 Nucleated RBCs 4 H Platelet Estimate NORMAL Large Platelets PRESENT Plt Morphology Comment NOTED RBC Morphology NOTED Polychromasia 3+ (>5) Macrocytosis 2+ (15-30) ESR Hold Purple Top O2 Saturation ABG pH at Pt Temp ABG pCO2 at Pt Temp ABG pO2 at Pt Temp ABG HCO3 ABG Base Excess (Actual) Anion Gap TNP Estim Creat Clear Calc 22.4 Estimated GFR 22 POC Glucose 377 H* Random Glucose 351 H* Lactic Acid Lactic Acid F/U @ 2Hr Calcium 8.0 L Total Bilirubin 2.2 H Direct Bilirubin 1.0 H AST 341 H ALT 116 H Alkaline Phosphatase 96 Ammonia Troponin I High Sens C-Reactive Protein 0.83 H B-Natriuretic Peptide Total Protein 4.4 L Albumin 1.6 L Lipase 58 Hold Red Top Hold Yellow Top Urine Color Urine Appearance Urine pH Ur Specific [place] Urine Protein Urine Glucose (UA) Urine Ketones Urine Blood Urine Nitrite Ur Leukocyte Esterase Urine RBC Urine WBC Ur Squamous Epith Cells Urine Bacteria Hyaline Casts Urine Yeast Salicylates Urine Opiates Screen Urine Fentanyl Screen Acetaminophen Ur Barbiturates Screen Ur Phencyclidine Scrn Ur Amphetamines Screen U Benzodiazepines Scrn Urine Cocaine Screen U Marijuana (THC) Screen Ethyl Alcohol < 10 Influenza Type A (PCR) Influenza Type B (PCR) RSV RNA Qual (PCR) SARS-CoV-2 RNA (RT-PCR) 10/08/22 10/08/22 10/08/22 16:28 16:28 16:28 MCV MCH MCHC RDW Plt Count MPV Immature Gran % (Auto) Neut % (Auto) Lymph % (Auto) [place] % (Auto) Eos % (Auto) Baso % (Auto) Lymph # (Auto) [place] # (Auto) Eos # (Auto) Baso # (Auto) Abs Immat Gran (auto) Absolute Neuts (auto) Absolute Nucleated RBC Nucleated RBC % (auto) Neutrophils % (Manual) Lymphocytes % (Manual) Monocytes % (Manual) Metamyelocytes % Myelocytes % Abs Neuts (Manual) Lymphocytes # (Manual) Monocytes # (Manual) Metamyelocytes # Myelocytes # Nucleated RBCs Platelet Estimate Large Platelets Plt Morphology Comment RBC Morphology Polychromasia Macrocytosis ESR Hold Purple Top O2 Saturation ABG pH at Pt Temp ABG pCO2 at Pt Temp ABG pO2 at Pt Temp ABG HCO3 ABG Base Excess (Actual) Anion Gap Estim Creat Clear Calc Estimated GFR POC Glucose Random Glucose Lactic Acid 22.5 H* Lactic Acid F/U @ 2Hr Calcium Total Bilirubin Direct Bilirubin AST ALT Alkaline Phosphatase Ammonia 254 H Troponin I High Sens 74.1 H* D C-Reactive Protein B-Natriuretic Peptide Total Protein Albumin Lipase Hold Red Top Hold Yellow Top Urine Color Urine Appearance Urine pH Ur Specific [place] Urine Protein Urine Glucose (UA) Urine Ketones Urine Blood Urine Nitrite Ur Leukocyte Esterase Urine RBC Urine WBC Ur Squamous Epith Cells Urine Bacteria Hyaline Casts Urine Yeast Salicylates Urine Opiates Screen Urine Fentanyl Screen Acetaminophen Ur Barbiturates Screen Ur Phencyclidine Scrn Ur Amphetamines Screen U Benzodiazepines Scrn Urine Cocaine Screen U Marijuana (THC) Screen Ethyl Alcohol Influenza Type A (PCR) Influenza Type B (PCR) RSV RNA Qual (PCR) SARS-CoV-2 RNA (RT-PCR) 10/08/22 10/08/22 10/08/22 16:28 16:28 16:28 MCV MCH MCHC RDW Plt Count MPV Immature Gran % (Auto) Neut % (Auto) Lymph % (Auto) [place] % (Auto) Eos % (Auto) Baso % (Auto) Lymph # (Auto) [place] # (Auto) Eos # (Auto) Baso # (Auto) Abs Immat Gran (auto) Absolute Neuts (auto) Absolute Nucleated RBC Nucleated RBC % (auto) Neutrophils % (Manual) Lymphocytes % (Manual) Monocytes % (Manual) Metamyelocytes % Myelocytes % Abs Neuts (Manual) Lymphocytes # (Manual) Monocytes # (Manual) Metamyelocytes # Myelocytes # Nucleated RBCs Platelet Estimate Large Platelets Plt Morphology Comment RBC Morphology Polychromasia Macrocytosis ESR 2 Hold Purple Top SEE NOTE O2 Saturation ABG pH at Pt Temp ABG pCO2 at Pt Temp ABG pO2 at Pt Temp ABG HCO3 ABG Base Excess (Actual) Anion Gap Estim Creat Clear Calc Estimated GFR POC Glucose Random Glucose Lactic Acid Lactic Acid F/U @ 2Hr Calcium Total Bilirubin Direct Bilirubin AST ALT Alkaline Phosphatase Ammonia Troponin I High Sens C-Reactive Protein B-Natriuretic Peptide 227 H Total Protein Albumin Lipase Hold Red Top Hold Yellow Top Urine Color Urine Appearance Urine pH Ur Specific [place] Urine Protein Urine Glucose (UA) Urine Ketones Urine Blood Urine Nitrite Ur Leukocyte Esterase Urine RBC Urine WBC Ur Squamous Epith Cells Urine Bacteria Hyaline Casts Urine Yeast Salicylates Urine Opiates Screen Urine Fentanyl Screen Acetaminophen Ur Barbiturates Screen Ur Phencyclidine Scrn Ur Amphetamines Screen U Benzodiazepines Scrn Urine Cocaine Screen U Marijuana (THC) Screen Ethyl Alcohol Influenza Type A (PCR) Influenza Type B (PCR) RSV RNA Qual (PCR) SARS-CoV-2 RNA (RT-PCR) 10/08/22 10/08/22 10/08/22 17:42 18:00 18:00 MCV MCH MCHC RDW Plt Count MPV Immature Gran % (Auto) Neut % (Auto) Lymph % (Auto) [place] % (Auto) Eos % (Auto) Baso % (Auto) Lymph # (Auto) [place] # (Auto) Eos # (Auto) Baso # (Auto) Abs Immat Gran (auto) Absolute Neuts (auto) Absolute Nucleated RBC Nucleated RBC % (auto) Neutrophils % (Manual) Lymphocytes % (Manual) Monocytes % (Manual) Metamyelocytes % Myelocytes % Abs Neuts (Manual) Lymphocytes # (Manual) Monocytes # (Manual) Metamyelocytes # Myelocytes # Nucleated RBCs Platelet Estimate Large Platelets Plt Morphology Comment RBC Morphology Polychromasia Macrocytosis ESR Hold Purple Top O2 Saturation 100.0 ABG pH at Pt Temp 6.90 L* ABG pCO2 at Pt Temp 19 L* ABG pO2 at Pt Temp 204 H ABG HCO3 4 L ABG Base Excess (Actual) -27.2 Anion Gap Estim Creat Clear Calc Estimated GFR POC Glucose Random Glucose Lactic Acid Lactic Acid F/U @ 2Hr Calcium Total Bilirubin Direct Bilirubin AST ALT Alkaline Phosphatase Ammonia Troponin I High Sens C-Reactive Protein B-Natriuretic Peptide Total Protein Albumin Lipase Hold Red Top Hold Yellow Top Urine Color Dark Yellow Urine Appearance Turbid Urine pH 6.5 Ur Specific [place] 1.020 Urine Protein Trace Urine Glucose (UA) 500 H Urine Ketones 15 Urine Blood Negative Urine Nitrite Negative Ur Leukocyte Esterase Small (1+) H Urine RBC 0-2 Urine WBC 0-5 Ur Squamous Epith Cells >20 Urine Bacteria None Seen Hyaline Casts 3-5 Urine Yeast Present Salicylates Urine Opiates Screen Not Detected Urine Fentanyl Screen Not Detected Acetaminophen Ur Barbiturates Screen Not Detected Ur Phencyclidine Scrn Not Detected Ur Amphetamines Screen Not Detected U Benzodiazepines Scrn Not Detected Urine Cocaine Screen Not Detected U Marijuana (THC) Screen Not Detected Ethyl Alcohol Influenza Type A (PCR) Influenza Type B (PCR) RSV RNA Qual (PCR) SARS-CoV-2 RNA (RT-PCR) 10/08/22 10/08/22 10/08/22 18:08 19:17 19:17 MCV MCH MCHC RDW Plt Count MPV Immature Gran % (Auto) Neut % (Auto) Lymph % (Auto) [place] % (Auto) Eos % (Auto) Baso % (Auto) Lymph # (Auto) [place] # (Auto) Eos # (Auto) Baso # (Auto) Abs Immat Gran (auto) Absolute Neuts (auto) Absolute Nucleated RBC Nucleated RBC % (auto) Neutrophils % (Manual) Lymphocytes % (Manual) Monocytes % (Manual) Metamyelocytes % Myelocytes % Abs Neuts (Manual) Lymphocytes # (Manual) Monocytes # (Manual) Metamyelocytes # Myelocytes # Nucleated RBCs Platelet Estimate Large Platelets Plt Morphology Comment RBC Morphology Polychromasia Macrocytosis ESR Hold Purple Top O2 Saturation ABG pH at Pt Temp ABG pCO2 at Pt Temp ABG pO2 at Pt Temp ABG HCO3 ABG Base Excess (Actual) Anion Gap Estim Creat Clear Calc Estimated GFR POC Glucose Random Glucose Lactic Acid Lactic Acid F/U @ 2Hr Calcium Total Bilirubin Direct Bilirubin AST ALT Alkaline Phosphatase Ammonia Troponin I High Sens C-Reactive Protein B-Natriuretic Peptide Total Protein Albumin Lipase Hold Red Top See Note Hold Yellow Top See Note Urine Color Urine Appearance Urine pH Ur Specific [place] Urine Protein Urine Glucose (UA) Urine Ketones Urine Blood Urine Nitrite Ur Leukocyte Esterase Urine RBC Urine WBC Ur Squamous Epith Cells Urine Bacteria Hyaline Casts Urine Yeast Salicylates 5.4 L Urine Opiates Screen Urine Fentanyl Screen Acetaminophen < 17 Ur Barbiturates Screen Ur Phencyclidine Scrn Ur Amphetamines Screen U Benzodiazepines Scrn Urine Cocaine Screen U Marijuana (THC) Screen Ethyl Alcohol < 10 Influenza Type A (PCR) NEGATIVE Influenza Type B (PCR) NEGATIVE RSV RNA Qual (PCR) NEGATIVE SARS-CoV-2 RNA (RT-PCR) NEGATIVE 10/08/22 19:17 MCV MCH MCHC RDW Plt Count MPV Immature Gran % (Auto) Neut % (Auto) Lymph % (Auto) [place] % (Auto) Eos % (Auto) Baso % (Auto) Lymph # (Auto) [place] # (Auto) Eos # (Auto) Baso # (Auto) Abs Immat Gran (auto) Absolute Neuts (auto) Absolute Nucleated RBC Nucleated RBC % (auto) Neutrophils % (Manual) Lymphocytes % (Manual) Monocytes % (Manual) Metamyelocytes % Myelocytes % Abs Neuts (Manual) Lymphocytes # (Manual) Monocytes # (Manual) Metamyelocytes # Myelocytes # Nucleated RBCs Platelet Estimate Large Platelets Plt Morphology Comment RBC Morphology Polychromasia Macrocytosis ESR Hold Purple Top O2 Saturation ABG pH at Pt Temp ABG pCO2 at Pt Temp ABG pO2 at Pt Temp ABG HCO3 ABG Base Excess (Actual) Anion Gap Estim Creat Clear Calc Estimated GFR POC Glucose Random Glucose Lactic Acid Lactic Acid F/U @ 2Hr 22.1 H* Calcium Total Bilirubin Direct Bilirubin AST ALT Alkaline Phosphatase Ammonia Troponin I High Sens C-Reactive Protein B-Natriuretic Peptide Total Protein Albumin Lipase Hold Red Top Hold Yellow Top Urine Color Urine Appearance Urine pH Ur Specific [place] Urine Protein Urine Glucose (UA) Urine Ketones Urine Blood Urine Nitrite Ur Leukocyte Esterase Urine RBC Urine WBC Ur Squamous Epith Cells Urine Bacteria Hyaline Casts Urine Yeast Salicylates Urine Opiates Screen Urine Fentanyl Screen Acetaminophen Ur Barbiturates Screen Ur Phencyclidine Scrn Ur Amphetamines Screen U Benzodiazepines Scrn Urine Cocaine Screen U Marijuana (THC) Screen Ethyl Alcohol Influenza Type A (PCR) Influenza Type B (PCR) RSV RNA Qual (PCR) SARS-CoV-2 RNA (RT-PCR) Imaging Radiologist's Impressions: Impressions Chest X-Ray 10/08/22 17:01 IMPRESSION: 1. Endotracheal tube catheter 1.5 cm above the momo. 2. Left IJ catheter tip in superior vena cava cavoatrial junction. 3. Right IJ catheter tip at the level the diaphragm projecting over the right atrium. 4. Enteric catheter tip in the stomach. Sidehole the level the diaphragm. 5. No pneumothorax. 6. Normal aeration of lungs. Abdomen/Pelvis CT 10/08/22 18:24 IMPRESSION: 1. Diffuse colonic wall thickening extending from the cecum to the sigmoid colon. Etiology of this is uncertain. Infectious or inflammatory colitis would be suspected with this distribution. 2. There is new pneumoperitoneum with loculated air bubbles seen anteriorly. The colon is the likely source of this free air. There is irregularity seen in the region of the hepatic flexure more than I would expect just for a focal fold and this area could be evaluated further. 3. Cirrhotic liver with ascites again noted. 4. Endotracheal tube tip is at the level the momo directed towards the right mainstem bronchus. This should be repositioned. 5. Chronic appearing and postoperative changes otherwise as described. This critical result was discussed with Dr. Lopez at 10/08/2022 6:48 PM and it was ascertained that the content and urgency of the report was understood at the time of direct communication. Chest CT 10/08/22 18:24 IMPRESSION: 1. Diffuse colonic wall thickening extending from the cecum to the sigmoid colon. Etiology of this is uncertain. Infectious or inflammatory colitis would be suspected with this distribution. 2. There is new pneumoperitoneum with loculated air bubbles seen anteriorly. The colon is the likely source of this free air. There is irregularity seen in the region of the hepatic flexure more than I would expect just for a focal fold and this area could be evaluated further. 3. Cirrhotic liver with ascites again noted. 4. Endotracheal tube tip is at the level the momo directed towards the right mainstem bronchus. This should be repositioned. 5. Chronic appearing and postoperative changes otherwise as described. This critical result was discussed with Dr. Lopez at 10/08/2022 6:48 PM and it was ascertained that the content and urgency of the report was understood at the time of direct communication. Head CT 10/08/22 18:24 IMPRESSION: No acute intracranial pathology. Assessment and Plan (1) Pneumoperitoneum: Status: Acute (2) Bowel perforation: Status: Acute (3) Septic shock: Status: Acute (4) Metabolic encephalopathy: Status: Acute (5) Metabolic acidosis: Status: Acute (6) Acute hypernatremia: Status: Acute (7) LISBET (acute kidney injury): Status: Acute Plan ?57-year-old with a history of liver cirrhosis? who presented with a? pneumoperitoneum, not a surgical candidate ?Neuro:? No acute issues? Cardiac:? ?Septic shock-? patient? hypothermic,? bradycardic, hypotensive,? with elevated lactic.? This is likely due to perforation. Unable to do appropriate sepsis IV fluids hydration at this time due to patient underlying ascites/? cirrhosis. Will give albumin for fluid? resuscitation. Continue pressors?? Pulmonary:?? ?Altered mental status- ? requiring urgent intubation.? This is? due to metabolic in nature,? from the perforated bowel. Cont vent support.? Renal:? LISBET- most likely related to hypoperfusion.? Anuric, this is from perforation. Cont albumin administration,? GI:? ?Pneumoperitoneum:? CT of abdomen showing new pneumoperitoneum with loculated air bubble seen anteriorly.? Was given Zosyn in the emergency room,? patient has a history of ESBL,? will give empiric dose of meropenem. Dr Jett evaluated the patient, but not a candidate for surgery. Family informed and in agreement of DNR.? Endo:? No acute issues ID: ? see GI plan Heme/Onc:??No acute issues Psych:? No acute issues. Miscellaneous: No acute issues? Prophylaxis:Subcut hep. ? IV push Protonix Diet: ? NPO Code status:? DNR as stated before? Critical care? time: x? 90 minutes of critical care ? Care review? with attending physician Dr Erickson? Time Spent With Patient Time: Total time managing care of this patient today ____ minutes. Critical Care Time Critical Care Time (minutes): 90
[2022-10-08 21:05] LABS: Partial Thromboplastin Time 67.7 SEC (26.0-36.4)
[2022-10-08 21:21] LABS: Reflex Lactate? 2 Y
--- NOTE | 2022-10-08 21:35 | PM.SEPBOLA3 ---
Sepsis Bolus Exclusion Sepsis Bolus Exclusion Date of Occurrence: 10/08/22 This patient met severe sepsis criteria due to the following condition(s):: Hypotension, Lactate>=4mmol/L and Documentation of septic shock In my clinical judgement the administration of 30 ml/kg of crystalloid would be detrimental to this patient due to the patient's following conditions:: Concern for fluid overload (Liver cirrhosis with ascites ) Replace the 30 mls/kg with (*zero amount not acceptable): *Note: One of the gentile must be documented Colloids amount given in mls:: 200
--- NOTE | 2022-10-08 21:41 | PC.NURSE ---
RN to RN report given to nurse Peacock at the ICU. Pt transferred to ICU room 253.
[2022-10-08 21:47] LABS: VBG Base Excess -20.1 mmol/L; VBG HCO3 7 mmol/L (22-26); VBG pCO2 22 mmHg; VBG pH 7.11 (7.32-7.43); VBG pO2 69 mmHg
[2022-10-08] MEDS: Albumin Human 25 % 100 ML 133.33 ML IV ×2 (21:53→23:12)
[2022-10-08] MEDS: propofoL 1,000 MG/100 ML VIAL 1.91 MG IVCONT (21:55)
[2022-10-08 22:09] LABS: ~Lactic Acid-LAB USE ONLY 23.9 mmol/L (0.5-2.0)
[2022-10-08 22:34] LABS: Venous Blood Gas Refer to POC result
[2022-10-08] MEDS: fentaNYL citrate/PF 100 MCG/2 ML VIAL IVPUSH (23:45)
[2022-10-09] VITALS: BP 112/51; PULSE 128; RESP 25; TEMP 36.5; O2SAT 100
[2022-10-09 00:08] VITALS: BP 112/51; PULSE 123
[2022-10-09 00:09] VITALS: BP 112/51; PULSE 123
[2022-10-09] MEDS: Norepinephrine Bitartrate/D5W 8 MG/250 ML PLAST..BAG 119.06 MG IV (00:09)
[2022-10-09] MEDS: Albumin Human 25 % 100 ML IV (00:14)
[2022-10-09] MEDS: fentaNYL citrate/NS 1,000 MCG/100 ML PLAST..BAG 5 MCG IVCONT (01:14)
[2022-10-09 01:21] VITALS: BP 115/46; PULSE 126
[2022-10-09 01:22] VITALS: BP 115/45; PULSE 108
[2022-10-09 02:00] VITALS: PULSE 101
--- NOTE | 2022-10-09 02:02 | PC.RT ---
Pt extabated to comfort care
--- NOTE | 2022-10-09 02:08 | PC.NURSE ---
Addendum entered by Madonna Cardenas RN 10/09/22 02:38: Time of 0232, NEOB declined donation , Family aware no home at this time. Original Note: pt to unit from ED 214, pt sedated on prop, no cough/gag, pupils 5 mm non reactive, bp stable on max levo and epi drip, ST on tele, increased RR on vent, 100mcg fent given per Annabel, SELINA. Lang in place no urine output, Family At bedside Annabel MARKS discussing plan of care, Pt made [employer]ER [employer] D[employer]ER, Fentynal Drip started all other meds d/c, pt terminally extubated at 0154.
--- NOTE | 2022-10-09 02:36 | PM.EVENT ---
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 Patient terminally extubated at 0154. at 0232 Patient asystole on monitor. On my assessment, the patient had absent peripheral pulses.? Pupils fixed and dilated.? Absent heart sounds? and no spontaneous breathing.? Official time of 0232.?Son at bedside at TO, Patient HCPs notified via phone.. Not a medical exam candidate.? Organ donation was notified by nursing.? Attending Dr Erickson notified? Time Spent With Patient Time: Total time managing care of this patient today ____ minutes.
--- NOTE | 2022-10-09 16:30 | P.DN_ITS ---
Discharge Sum: Prov Provider Primary care physician: Unknown Physician Consults: General surgery Dr. Ash Discharge Sum: Diag PCOD Cause of : Septic shock Contributing Factors (1) Pneumoperitoneum: (2) Perforated abdominal viscus: (3) Cirrhosis: (4) Portal hypertension: (5) LISBET (acute kidney injury): (6) Diabetes mellitus with hyperglycemia: Discharge Sum: Summary Date and Time Date of admission: 10/08/22 20:08 Date of : 10/09/22 Time of : 02:32 Summary Details: 57-year-old lady with underlying decompensated cirrhosis with several recent paracentesis admitted on 10/08/2022 with alteration of mental status secondary to profound metabolic acidosis with pneumoperitoneum and perforated viscus with resultant cardiogenic/septic shock. On ER evaluation patient emergently intubated and general surgery consultation obtained. Unfortunately, secondary to underlying advanced liver disease and maximal requirement for vasopressor and ventilatory support patient deemed not a surgical candidate on General surgery evaluation and transferred to intensive care unit. Family discussion with sis ter, daughter/healthcare proxy held and no chance of survival discussed. At that time decision was reached to switch goals of care to comfort measures only. Code status updated and patient terminally extubated passing peacefully at 02:32a.m. on 10/09/2022. Additional Data Attending physician: Ian Erickson MD
== END 2022-10-09 03:26 | disposition expired | DRG 871 ==
LOC: HO.ED 16:19 → HO.EDOVER 20:34 → HO.ICU 20:39
PROVIDERS: Admitting Provider Registered Nurse Community Health; Emergency Provider Emergency Medicine; Visit Provider Internal Medicine Pulmonary Disease
DX: A41.9 Sepsis, unspecified organism (principal); G93.41 Metabolic encephalopathy; R65.21 Severe sepsis with septic shock; K63.1 Perforation of intestine (nontraumatic); N17.9 Acute kidney failure, unspecified; E87.1 Hypo-osmolality and hyponatremia; K76.6 Portal hypertension; F10.20 Alcohol dependence, uncomplicated; Z66 Do not resuscitate; K21.9 Gastro-esophageal reflux disease without esophagitis; Z51.5 Encounter for palliative care; K70.30 Alcoholic cirrhosis of liver without ascites; K66.8 Other specified disorders of peritoneum; I10 Essential (primary) hypertension; E11.65 Type 2 diabetes mellitus with hyperglycemia; Z20.822 Contact with and (suspected) exposure to COVID-19; Z79.4 Long term (current) use of insulin; Z79.899 Other long term (current) drug therapy
CPT/HCPCS: 0241U; 36415; 70450; 71045; 71250; 74176; 80053; 80143; 80179; 80307; 81001; 82077; 82140; 82248; 82803; 82947; 83605; 83690; 83880; 84484; 85007; 85025; 85027; 85610; 85652; 85730; 86140; 87040; 87077; 87086; 87088; 87147; 87186; 87205; 93005; 94002; 96365; 96367; 96368; 96375; 96376; 99285; C1758; J0171; J1643; J2185; J2543; J3010; P9047